=== PATIENT | male | born 1945 | race Hispanic/Latino ===

== ENCOUNTER 2017-10-19 16:02 | Inpatient (IN) | payer MEDICARE, BC ==
[2017-10-19 16:32] VITALS: BMI 22.3
--- NOTE | 2017-10-19 17:11 | RAD ---
HISTORY: pleural effusion on CT COMPARISON: 10/09/2017 CT thorax FINDINGS: LUNGS: Left upper lobe mass/volume loss left upper lobe. Left lower lobe infiltrate. Shift of mediastinal structures to the ipsilateral side. Volume loss primarily in the left upper lobe. Compensatory hyperinflation of the right lung. PLEURA: Small left pleural effusion. CARDIOVASCULAR: No radiographic findings to suggest acute or significant cardiovascular disease. OSSEOUS STRUCTURES: No significant abnormalities. VISUALIZED UPPER ABDOMEN: Normal. OTHER FINDINGS: None. IMPRESSION: Infiltrate/ mass left upper lobe. Volume loss and infiltrate left lower lobe. Small left pleural effusion. These are all new findings compared to the prior chest radiograph. The findings were seen on the recent CT scan of the thorax. .
[2017-10-19 17:23] LABS: ALB/GLOB RATIO 0.9 (1.1-1.8); ALBUMIN 3.6 g/dL (3.0-4.8); ALT/SGPT 19 U/L (7-56); AST/SGOT 34 U/L (17-59); BLOOD UREA NITROGEN 13 mg/dL (7-21); CALCIUM 8.8 mg/dL (8.4-10.5); GFR AFRICAN-AMERICAN > 60; GFR NON-AFRICAN AMERICAN > 60
[2017-10-19 17:34] LABS: BASO # 0.01 K/mm3 (0.0-2.0); BASO % 0.1 % (0.0-3.0); EOS # 0.1 (0.0-0.7); EOS % 0.5 % (1.5-5.0); GRAN # 7.56 (1.4-6.5); GRAN % 82.2 % (50.0-68.0); HEMOGLOBIN 12.2 g/dL (14.0-18.0); LYMPH # 1.1 (1.2-3.4); LYMPH % 11.4 % (22.0-35.0); MEAN CELL VOLUME 90.5 fl (80.0-105.0); MEAN CORPUSCULAR HEMOGLOBIN 28.4 pg (25.0-35.0); MEAN CORPUSCULAR HGB CONC 31.4 g/dl (31.0-37.0); MEAN PLATELET VOLUME 9.9 fl (7.0-11.0); MONO # 0.5 (0.1-0.6); MONO % 5.8 % (1.0-6.0); RBC 4.3 10^6/uL (3.5-6.1); RED CELL DISTRIBUTION WIDTH 14.1 % (11.5-14.5); WHITE BLOOD COUNT 9.2 10^3/ul (4.5-11.0)
[2017-10-19 17:35] LABS: B-TYPE NATRIURETIC PEPTIDE 334 pg/mL (0-450); TROPONIN I < 0.01 ng/mL
[2017-10-19 17:40] LABS: INR 1.28 (0.93-1.08); PARTIAL THROMBOPLASTIN TIME 32.2 Seconds (25.1-36.5); PROTHROMBIN TIME 14.7 SECONDS (9.4-12.5)
[2017-10-19] MEDS ORDERED: Potassium Chloride 20 mEq ER Tab PO STA (17:48)
--- NOTE | 2017-10-19 18:46 | ED PDOC ---
Arrival/HPI - General Chief Complaint: Shortness Of Breath Time Seen by Provider: 10/19/17 16:14 Historian: Patient - History of Present Illness Narrative History of Present Illness (Text): 10/19/17 18:45 A 72 year old male, whose past medical history includes presents to the emergency department for a complaint of shortness of breath. The patient was sent into the emergency department by Dr. Durbin for increasing shortness of breath. As per Dr. Durbin, the patient's repeat CT scan showed a PE. The patient denies fevers, chills, headache, dizziness, chest pain, cough, abdominal pain, nausea, vomiting, diarrhea, back pain, neck pain, urinary/bowel changes, or any other complaint. Time/Duration: Prior to Arrival Symptom Onset: Sudden Symptom Course: Unchanged Activities at Onset: Rest, Light Context: Home Past Medical History - Provider Review Nursing Documentation Reviewed: Yes - Infectious Disease Hx of Infectious Diseases: None - Cardiac Hx Pacemaker: No - Pulmonary Hx Lung Cancer: Yes - Neurological Hx Paralysis: No - Hematological/Oncological Hx Blood Transfusions: No - Musculoskeletal/Rheumatological Hx Musculoskeletal Disorders: No - Genitourinary/Gynecological Hx Prostate Problems: Yes - Psychiatric Hx Emotional Abuse: No Hx Physical Abuse: No Hx Substance Use: No - Anesthesia Hx Anesthesia Reactions: No Hx Malignant Hyperthermia: No - Suicidal Assessment Feels Threatened In Home Enviroment: No Family/Social History - Physician Review Nursing Documentation Reviewed: Yes Family/Social History: No Known Family HX Smoking Status: Never Smoked Hx Alcohol Use: Yes (QUIT 15 MONTHS AGO) Hx Substance Use: No Allergies/Home Meds Allergies/Adverse Reactions: Allergies aspirin Adverse Reaction (Verified 10/19/17 16:31) NAUSEA Home Medications: Home Meds Medication Instructions Recorded Confirmed Lansoprazole [Prevacid] 1 cap PO DAILY 10/19/17 10/19/17 Review of Systems - Physician Review All systems were reviewed & negative as marked: Yes - Review of Systems Constitutional: absent: Fevers, Night Sweats Respiratory: SOB. absent: Cough Cardiovascular: absent: Chest Pain, Syncope Gastrointestinal: absent: Stool Changes, Diarrhea, Nausea, Vomiting Genitourinary Male: absent: Urinary Output Changes Musculoskeletal: absent: Back Pain, Neck Pain Neurological: absent: Headache, Dizziness Physical Exam Vital Signs Reviewed: Yes Vital Signs Temp Pulse Resp BP Pulse Ox 10/19/17 20:02 98.4 F 87 18 141/86 99 10/19/17 16:41 20 10/19/17 16:19 98.6 F 83 17 141/67 95 Temperature: Afebrile Blood Pressure: Normal Pulse: Regular Respiratory Rate: Normal Appearance: Positive for: Well-Appearing, Non-Toxic, Comfortable Pain Distress: None Mental Status: Positive for: Alert and Oriented X 3 - Systems Exam Head: Present: Atraumatic, Normocephalic Pupils: Present: PERRL Extroacular Muscles: Present: EOMI Conjunctiva: Present: Normal Mouth: Present: Moist Mucous Membranes Neck: Present: Normal Range of Motion Respiratory/Chest: Present: Decreased Breath Sounds (Bilaterally) Cardiovascular: Present: Murmurs (Systolic murmur) Abdomen: No: Tenderness, Distention, Peritoneal Signs Back: Present: Normal Inspection Upper Extremity: Present: Normal Inspection. No: Cyanosis, Edema Lower Extremity: Present: Normal Inspection. No: Edema Neurological: Present: GCS=15, CN II-XII Intact, Speech Normal Skin: Present: Warm, Dry, Normal Color. No: Rashes Psychiatric: Present: Alert, Oriented x 3, Normal Insight, Normal Concentration Medical Decision Making ED Course and Treatment: 10/19/17 18:45 Impression: Plan: -- EKG -- Chest X-ray -- Sputum Culture -- Labs -- Heaprin and Protonix -- Reassess and disposition Progress Notes: CHEST X-RAY Dictated By: Jefe Up MD Dictated Date/Time: 10/09/17 17:09 IMPRESSION: Infiltrate/ mass left upper lobe. Volume loss and infiltrate left lower lobe. Small left pleural effusion. These are all new findings compared to the prior chest radiograph. The findings were seen on the recent CT scan of the thorax. 10/19/17 19:23: Case discussed with Dr. Durbin. Will admit patient to general medical floor. PO potassium was given. EKG: Ordered, reviewed, and independently interpreted the EKG. Rate : 78 BPM Rhythm : NSR Interpretation : RBBB - Lab Interpretations Lab Results: 10/19/17 17:06 10/19/17 17:06 Lab Results 10/19/17 17:06: Sodium 138, Potassium 3.1 L, Chloride 92 L, Carbon Dioxide 37 H , Anion Gap 12, BUN 13, Creatinine 0.5 L, Est GFR ( Amer) > 60, Est GFR ( Non-Af Amer) > 60, Random Glucose 99, Calcium 8.8, Magnesium 1.8, Total Bilirubin 0.4, AST 34, ALT 19, Alkaline Phosphatase 92, Lactate Dehydrogenase 872 H, Total Creatine Kinase 35, Troponin I < 0.01, NT-Pro-B Natriuret Pep 334, Total Protein 7.7, Albumin 3.6, Globulin 4.0, Albumin/Globulin Ratio 0.9 L 10/19/17 17:06: PT 14.7 H, INR 1.28 H, APTT 32.2 10/19/17 17:06: WBC 9.2, RBC 4.30, Hgb 12.2 L, Hct 38.9 L, MCV 90.5, MCH 28.4, MCHC 31.4, RDW 14.1, Plt Count 380, MPV 9.9, Gran % 82.2 H, Lymph % (Auto) 11.4 L, Donley % (Auto) 5.8, Eos % (Auto) 0.5 L, Baso % (Auto) 0.1, Gran # 7.56 H, Lymph # (Auto) 1.1 L, Donley # (Auto) 0.5, Eos # (Auto) 0.1, Baso # (Auto) 0.01 I have reviewed the lab results: Yes - RAD Interpretation Radiology Orders: 10/19/17 16:42 CHEST PORTABLE [RAD] Stat - EKG Interpretation Interpreted by ED Physician: Yes Type: 12 lead EKG - Medication Orders Current Medication Orders: Heparin Sodium (Porcine) (Heparin) 5,000 units SC Q12 [facility] PRN Reason: Protocol Potassium Chloride/Dextrose/Sod Cl (Potassium Chl 20 Meq In D5-1/2ns) 1,000 mls @ 50 mls/hr IV .Q20H [facility] Pantoprazole Sodium (Protonix Ec Tab) 20 mg PO 0600,1600 [facility] Discontinued Medications Potassium Chloride (K-Dur 20 Meq Er Tab) 20 meq PO STAT STA Stop: 10/19/17 17:49 Last Admin: 10/19/17 20:53 Dose: 20 meq - Scribe Statement The provider has reviewed the documentation as recorded by the Zenia Nuñez Provider Scribe Attestation: All medical record entries made by the Scribe were at my direction and personally dictated by me. I have reviewed the chart and agree that the record accurately reflects my personal performance of the history, physical exam, medical decision making, and the department course for this patient. I have also personally directed, reviewed, and agree with the discharge instructions and disposition. Disposition/Present on Arrival - Present on Arrival Any Indicators Present on Arrival: No History of DVT/PE: No History of Uncontrolled Diabetes: No Urinary Catheter: No History of Decub. Ulcer: No History Surgical Site Infection Following: None - Disposition Have Diagnosis and Disposition been Completed?: Yes Diagnosis: Pleural effusion Disposition Time: 16:30 Condition: FAIR
--- NOTE | 2017-10-19 20:58 | CP.PCM.HP ---
History of Present Illness - History of Present Illness History of Present Illness: H&P for Dr. Durbin 72 M with a PMHx of prostate ca s/p radiation, new left perihilar mass and tobacco abuse presents to the [facility] [place] ED with complaints of progressively worsening shortness of breath. Repeat CT demonstrated a pleural effusion lung nodules, and possible adrenal lesion. The patient was seen and examined at bedside. Patient has complaints of a productive cough with white phlegm production. Patient otherwise feels fine. He does admit to shortness of breath, especially upon exertion. Patient has no difficulty in oral intake, has been having regular bowel and baldder movements. The patient denies fevers, chills, headache, dizziness, chest pain, cough, abdominal pain, nausea, vomiting, diarrhea, back pain, neck pain, urinary/bowel changes, or any other complaint. PMHx: As above PSHx: Denied Shx: Heavy smoker >30yrs 1ppd, recently quit. Denied Etoh or illicit substance abuse FamHx: Denied Meds; MAR Reviewed Allergies: NKDA Present on Admission - Present on Admission Any Indicators Present on Admission: No Review of Systems - Review of Systems Review of Systems: as per HPI otherwise negative Past Patient History - Infectious Disease Hx of Infectious Diseases: None - Past Social History Smoking Status: Never Smoked - CARDIAC Hx Pacemaker: No - PULMONARY Hx Lung Cancer: Yes - NEUROLOGICAL Hx Paralysis: No - HEMATOLOGICAL/ONCOLOGICAL Hx Blood Transfusions: No - MUSCULOSKELETAL/RHEUMATOLOGICAL Hx Musculoskeletal Disorders: No - GENITOURINARY/GYNECOLOGICAL Hx Prostate Problems: Yes - PSYCHIATRIC Hx Emotional Abuse: No Hx Physical Abuse: No Hx Substance Use: No - SURGICAL HISTORY Hx Surgeries: Yes - ANESTHESIA Hx Anesthesia Reactions: No Hx Malignant Hyperthermia: No Meds Allergies/Adverse Reactions: Allergies Allergy/AdvReac Type Severity Reaction Status Date / Time aspirin AdvReac NAUSEA Verified 10/19/17 16:31 Physical Exam - Constitutional Appears: Chronically Ill - Head Exam Head Exam: ATRAUMATIC, NORMAL INSPECTION, NORMOCEPHALIC - Eye Exam Eye Exam: EOMI, Normal appearance, PERRL Pupil Exam: NORMAL ACCOMODATION, PERRL - ENT Exam ENT Exam: Mucous Membranes Dry - Respiratory Exam Respiratory Exam: Decreased Breath Sounds, NORMAL BREATHING PATTERN - Cardiovascular Exam Cardiovascular Exam: REGULAR RHYTHM, +S1, +S2 - GI/Abdominal Exam GI & Abdominal Exam: Normal Bowel Sounds, Soft. absent: Tenderness - Extremities Exam Extremities exam: Positive for: pedal edema - Neurological Exam Neurological exam: Alert, CN II-XII Intact, Normal Gait, Oriented x3, Reflexes Normal - Psychiatric Exam Psychiatric exam: Normal Affect, Normal Mood - Skin Skin Exam: Dry, Intact, Normal Color, Warm Results - Vital Signs Recent Vital Signs: Last Vital Signs Temp 98.4 F 10/19/17 20:02 Pulse 87 10/19/17 20:02 Resp 18 10/19/17 20:02 BP 141/86 10/19/17 20:02 Pulse Ox 99 10/19/17 20:02 - Labs Result Diagrams: 10/19/17 17:06 10/19/17 17:06 Assessment & Plan - Assessment and Plan (Free Text) Assessment: 72 M with a PMHx of prostate ca s/p radiation, new left perihilar mass and tobacco abuse presents to the [facility] [place] [facility] ED with complaints of progressively worsening shortness of breath. Repeat CT demonstrated a pleural effusion lung nodules, and possible adrenal lesion. Will consult IR Dr Chandler regarding thoracentesis and bx of lung/adrenals. EKG demonstrated strain pattern, will consult Dr. Olivier, Cardiology for further assessment. Patient found to be hypokalemic and will supplement potassium in IVF. 02NC PRN. Will consult Dr. Dent Pulmonology. Pt educated and counselled on tobacco cessation.
--- NOTE | 2017-10-19 22:28 | CARD ---
APPROVED REPORT EKG Measurement Heart [id number] <Conclusion> Normal sinus rhythm Right bundle branch block Abnormal ECG
[2017-10-19] MEDS: Potassium Ch 20mEq in D5-1/2NS 1,000 ML IV SCH (22:29)
[2017-10-20] MEDS: Pantoprazole 20 mg EC Tab PO SCH ×2 (05:38→15:07)
[2017-10-20 06:36] LABS: BASO # 0.01 K/mm3 (0.0-2.0); BASO % 0.1 % (0.0-3.0); EOS % 0.5 % (1.5-5.0); GRAN # 5.89 (1.4-6.5); GRAN % 77.9 % (50.0-68.0); HEMOGLOBIN 11.1 g/dL (14.0-18.0); LYMPH # 1.1 (1.2-3.4); LYMPH % 14.9 % (22.0-35.0); MEAN CELL VOLUME 90.4 fl (80.0-105.0); MEAN CORPUSCULAR HGB CONC 30.9 g/dl (31.0-37.0); MEAN PLATELET VOLUME 9.9 fl (7.0-11.0); MONO # 0.5 (0.1-0.6); MONO % 6.6 % (1.0-6.0); RBC 3.97 10^6/uL (3.5-6.1); RED CELL DISTRIBUTION WIDTH 14.1 % (11.5-14.5); WHITE BLOOD COUNT 7.6 10^3/ul (4.5-11.0)
[2017-10-20] MEDS ORDERED: Barium Sulfate Susp 2.1% w/v, 2.0% w/w 450 mL Bottle PO ONE (07:15)
[2017-10-20 07:18] LABS: INR 1.27 (0.93-1.08); PARTIAL THROMBOPLASTIN TIME 29.4 Seconds (25.1-36.5); PROTHROMBIN TIME 14.7 SECONDS (9.4-12.5)
[2017-10-20 07:34] LABS: ALB/GLOB RATIO 0.8 (1.1-1.8); ALBUMIN 3.1 g/dL (3.0-4.8); ALT/SGPT 21 U/L (7-56); AST/SGOT 30 U/L (17-59); BLOOD UREA NITROGEN 9 mg/dL (7-21); CALCIUM 8.7 mg/dL (8.4-10.5); GFR AFRICAN-AMERICAN > 60; GFR NON-AFRICAN AMERICAN > 60
[2017-10-20] MEDS: Potassium Chloride 20 mEq ER Tab PO SCH ×2 (10:09→17:30)
[2017-10-20] MEDS ORDERED: Iohexol 350 MG/100 ML VIAL ONE (10:20)
--- NOTE | 2017-10-20 11:34 | CT ---
PROCEDURE: CT Chest, Abdomen and Pelvis with intravenous contrast HISTORY: metastatic lung ca suspected COMPARISON: Recent outside CT dated 10/09/2017 TECHNIQUE: IV dose administered: 100 cc of Omni 350 Radiation dose: Total exam DLP = 479 mGy-cm. This CT exam was performed using one or more of the following dose reduction techniques: Automated exposure control, adjustment of the mA and/or kV according to patient size, and/or use of iterative reconstruction technique. FINDINGS: CT CHEST WITH CONTRAST: LUNGS: There is atelectasis of the left lung with mediastinal shift to the left. There is opacification of the left mainstem bronchus which may be due to a mucus plug. In an endobronchial lesion cannot be excluded MEDIASTINUM: Unremarkable. Normal caliber aorta and pulmonary arterial trunk. No aortic dissection. Normal size heart. LYMPH NODES: There is extensive supraclavicular adenopathy. The conglomerate juliana mass measures 5.5 x 8.4 cm. There is also right axillary adenopathy. Enlarged enhancing nodes are also seen in the medial supraclavicular space adjacent to the jugular. PLEURA: Moderate size left pleural effusion. BONES: Unremarkable. OTHER FINDINGS: None. CT ABDOMEN AND PELVIS: LIVER: Unremarkable. No gross lesion or ductal dilatation. GALLBLADDER AND BILE DUCTS: Unremarkable. PANCREAS: Unremarkable. No gross lesion or ductal dilatation. SPLEEN: Unremarkable. ADRENALS: There is a heterogeneous right adrenal mass measuring 2.2 x 3.6 cm consistent with metastatic disease. There is also enlargement of the left adrenal suspicious for metastatic involvement. There is a simple cyst arising from the upper pole of the left kidney KIDNEYS AND URETERS: Unremarkable. No hydronephrosis. No solid mass. VASCULATURE: Unremarkable. No aortic aneurysm. BOWEL: Unremarkable. No obstruction. No gross mural thickening. APPENDIX: Normal appendix. PERITONEUM: Unremarkable. No free fluid. No free air. LYMPH NODES: Unremarkable. No enlarged lymph nodes. BLADDER: Unremarkable. REPRODUCTIVE: Unremarkable. BONES: No acute fracture. OTHER FINDINGS: None. IMPRESSION: Severe atelectasis of the left lung with mediastinal shift to the left and a moderate size left effusion. There is opacification of the left mainstem bronchus which probably represents a mucous plug. An endobronchial lesion cannot be excluded. Extensive right-sided supraclavicular adenopathy. Bilateral adrenal masses right greater than left suspicious for metastatic disease.
--- NOTE | 2017-10-20 13:25 | CARD ---
APPROVED REPORT EXAM: Two-dimensional and M-mode echocardiogram with Doppler and color Doppler. 2D DIMENSIONS Left Atrium (2D)3.7 (1.6-4.0cm)IVSd1.2 (0.7-1.1cm) LVDd4.2 (3.9-5.9cm)PWd1.2 (0.7-1.1cm) LVDs2.9 (2.5-4.0cm)FS (%) 31.1 % LVEF (%)59.2 (>50%) M-Mode DIMENSIONS Aortic Root3.20 (2.2-3.7cm)Aortic Cusp Exc.1.90 (1.5-2.0cm) Aortic Valve AoV Peak Rnqnaxai675.0cm/Mary Jo Peak GR.6mmHg Mitral Valve E/A ratio0.0 TDI E/Lateral E'0.0E/Medial E'0.0 Tricuspid Valve TR Peak [id number] [id number] Peak Gr.23mmHg [id number] LEFT VENTRICLE The left ventricle is normal size. There is mild concentric left ventricular hypertrophy. The left ventricular function is normal. The left ventricular ejection fraction is within the normal range. There is normal LV segmental wall motion. RIGHT VENTRICLE The right ventricle is normal size. The right ventricular systolic function is normal. ATRIA The left atrium size is normal. The right atrium size is normal. The interatrial septum is intact with no evidence for an atrial septal defect. AORTIC VALVE The aortic valve is normal in structure. No aortic regurgitation is present. There is no aortic valvular stenosis. MITRAL VALVE The mitral valve is normal in structure. Mitral regurgitation is trace. TRICUSPID VALVE The tricuspid valve is normal in structure. There is mild tricuspid regurgitation. PULMONIC VALVE The pulmonary valve is normal in structure. GREAT VESSELS The aortic root is normal in size. The IVC is normal in size and collapses >50% with inspiration. PERICARDIAL EFFUSION There is no pleural effusion. There is no pericardial effusion. <Conclusion> Normal chamber size. Mild concentric LVH. Normal LV systolic function. Mild tricuspid regurgitation.
[2017-10-20] MEDS: Potassium Ch 20mEq in D5-1/2NS 1,000 ML IV SCH (15:06)
--- NOTE | 2017-10-20 16:02 | CP.PCM.PN ---
Subjective - Date & Time of Evaluation Date of Evaluation: 10/20/17 Time of Evaluation: 10:25 - Subjective Subjective: Heme Onc Progress Note for Dr. Wolf Patient seen and examined at bedside. No acute complaints at this time. Pt NPO status maintained. Patient for possible thoracentesis today. The patient denies fevers, chills, headache, dizziness, chest pain, cough, abdominal pain, nausea, vomiting, diarrhea, back pain, neck pain, urinary/bowel changes, or any other complaint. Objective - Vital Signs/Intake and Output Vital Signs (last 24 hours): Temp Pulse Resp BP Pulse Ox 98.0 F 78 20 114/53 L 93 L 10/20/17 06:00 10/20/17 06:00 10/20/17 06:00 10/20/17 06:00 10/20/17 06:00 Intake and Output: 10/20/17 10/20/17 06:59 18:59 Intake Total 0 700 Output Total 350 Balance -350 700 - Medications Medications: Current Medications Heparin Sodium (Porcine) (Heparin) 5,000 units SC Q12 [facility] PRN Reason: Protocol Last Admin: 10/20/17 10:08 Dose: 5,000 units Potassium Chloride/Dextrose/Sod Cl (Potassium Chl 20 Meq In D5-1/2ns) 1,000 mls @ 50 mls/hr IV .Q20H [facility] Last Admin: 10/20/17 15:06 Dose: 50 mls/hr Pantoprazole Sodium (Protonix Ec Tab) 20 mg PO 0600,1600 [facility] Last Admin: 10/20/17 15:07 Dose: 20 mg Potassium Chloride (K-Dur 20 Meq Er Tab) 30 meq PO BID [facility] Last Admin: 10/20/17 10:09 Dose: 30 meq - Labs Labs: 10/20/17 05:15 10/20/17 05:15 PT 14.7 SECONDS (9.4-12.5) H 10/20/17 05:15 INR 1.27 (0.93-1.08) H 10/20/17 05:15 APTT 29.4 Seconds (25.1-36.5) 10/20/17 05:15 - Constitutional Appears: No Acute Distress - Head Exam Head Exam: ATRAUMATIC, NORMAL INSPECTION, NORMOCEPHALIC - Eye Exam Eye Exam: EOMI, Normal appearance, PERRL - ENT Exam ENT Exam: Mucous Membranes Moist, Normal Exam - Respiratory Exam Respiratory Exam: Clear to Ausculation Bilateral, NORMAL BREATHING PATTERN - Cardiovascular Exam Cardiovascular Exam: REGULAR RHYTHM, +S1, +S2. absent: Murmur - GI/Abdominal Exam GI & Abdominal Exam: Soft, Normal Bowel Sounds. absent: Tenderness - Extremities Exam Extremities Exam: Pedal Edema - Neurological Exam Neurological Exam: Alert, Awake, CN II-XII Intact, Normal Gait, Oriented x3 - Psychiatric Exam Psychiatric exam: Normal Affect, Normal Mood - Skin Skin Exam: Dry, Intact, Normal Color, Warm Assessment and Plan - Assessment and Plan (Free Text) Assessment: 72 M with a PMHx of prostate ca s/p radiation, new left perihilar mass and tobacco abuse [place] [facility] [place] with complaints of progressively worsening shortness of breath. Repeat CT demonstrated a pleural effusion lung nodules, and possible adrenal lesion. Will consult IR Dr Chandler regarding thoracentesis and bx of lung/adrenals. EKG demonstrated strain pattern, will consult Dr. Olivier, Cardiology for further assessment. Patient found to be hypokalemic and will supplement potassium in IVF. 02NC PRN. Will consult Dr. Dent Pulmonology. Pt educated and counselled on tobacco cessation.
[2017-10-20] MEDS: MethylPREDNISolone 40 mg Vial IVP SCH ×2 (18:02→22:00)
--- NOTE | 2017-10-20 18:25 | CON ---
DATE: 10/20/2017 INDICATIONS: Shortness of breath, pleural effusion, hypokalemia. HISTORY OF PRESENT ILLNESS: This is a 72-year-old man with prostate cancer with radiation therapy who has developed shortness of breath, which has become progressive. Apparently, he has undergone evaluation by Dr. Durbin. A CT scan demonstrated abnormalities including pleural effusion and left hilar mass. He was admitted to telemetry yesterday. Cardiology consultation was requested. There is no chest pain, orthopnea, PND, syncope, presyncope, lightheadedness, dizziness, vertigo, palpitation, edema, claudication, fever, chills, rigors, sweats, hemoptysis, abdominal pain, nausea, vomiting, diarrhea, constipation or melena. PAST MEDICAL HISTORY: Notable for prostate cancer with radiation therapy. Recent CAT scan disclosed abnormalities including left pleural effusion, left perihilar mass, possible adrenal mass, possible pulmonary embolus was mentioned. He is a smoker who just quit. There is no history of rheumatic fever, myocardial infarction, angina, congestive heart failure, arrhythmia, diabetes, stroke, TIA, hyperlipidemia or gout. MEDICATIONS: At the time of admission include Prevacid. ALLERGIES: THERE ARE NO MEDICATION ALLERGIES REPORTED. SOCIAL HISTORY: He is a smoker who has just quit. He does not drink alcohol. He lives at home. He is ambulatory. FAMILY HISTORY: Noncontributory. REVIEW OF SYSTEMS: A 10-point review of systems is otherwise unremarkable except as noted above. PHYSICAL EXAMINATION GENERAL: He is a well-developed male, lying in bed, in no acute distress. VITAL SIGNS: Unremarkable. Pulse is 90, afebrile, blood pressure 119/40, respiratory rate 18-20, O2 sat 95%-99% on nasal cannula. HEENT: Reveals no neck vein distention, thyromegaly, or carotid bruits. Mucous membranes moist. Conjunctivae are pink. NECK: Supple. LUNGS: Lung [place], diminished breath sounds on the left side, scattered rhonchi. HEART: Revealed normal first and second heart sounds. ABDOMEN: Soft, bowel sounds present. No mass, organomegaly, tenderness, rebound, or guarding. No palpable abdominal aortic aneurysm. No CVA tenderness. EXTREMITIES: Revealed no cyanosis or clubbing. There is mild pedal edema. NEUROLOGIC: Awake, alert, and oriented. PSYCHIATRIC: Normal as to mood and affect. SKIN: Warm and dry. No rash or cellulitis. LABORATORY AND IMAGING: EKG demonstrates regular sinus rhythm, right bundle-branch block. Chest x-ray revealed infiltrate/mass left upper lobe, volume loss, infiltrate left lower lobe, small left pleural effusion and these are new findings. White count normal, hemoglobin of 11.1, hematocrit 35.9, platelet count 340,000. PT 14.7, INR 1.27, PTT 29.4. Electrolytes notable for potassium of 3.1, repeat 3.2. BUN and creatinine unremarkable. Magnesium 1.8. LFTs unremarkable. LDH 872. CK 35, troponin less than 0.01. BNP 334. CEA is elevated at 28.8. IMPRESSION: Alton Monson is a 72-year-old man who presented with shortness of breath and abnormal chest findings including pleural effusion, infiltrates and or mass in the left lung, possible metastatic disease, possible adrenal mass, questionable pulmonary embolism on a CAT scan which needs clarification based on notes in the chart. PLAN: He is undergoing Oncology, Pulmonary and Interventional Radiology evaluations. I will order an echocardiogram. Potassium should be replaced. He is being considered for thoracentesis and adrenal biopsy. I will review his old records and the echocardiogram once it has been done. I will follow along with you. I will make additional recommendations based on his clinical course. William Olivier MD PATRICK
[2017-10-20] MEDS ORDERED: Midazolam 2 MG/2 ML VIAL ONE (18:39)
[2017-10-20] MEDS ORDERED: Lidocaine 1% Inj (20ml) ONE (18:39)
[2017-10-20] MEDS ORDERED: Oxycodone/Acetaminophen 5/325 mg Tab PO PRN (18:58)
[2017-10-20] MEDS ORDERED: Sodium Chloride 0.45% 1,000 ML IV SCH (19:00)
--- NOTE | 2017-10-20 20:10 | US ---
PROCEDURE: Ultrasound guided left thoracentesis. CLINICAL HISTORY: Large left hilar mass. Left pleural effusion. Evaluate for malignancy. PHYSICIAN(S): Arthur Chandler MD. TECHNIQUE: The relative risks and indications of the procedure were explained to the patient and his family and consent obtained. The patient was placed in a sitting position on the stretcher and sonography of the right chest performed. This revealed a moderate sized leftpleural effusion. A eft posterolateral intercostal approach was selected and the area prepped and draped usual sterile fashion. 1% Xylocaine was used to anesthetize the skin and soft tissues. A 7 Bulgarian thoracentesis catheter was trocared into the right pleural cavity and 700cc of clear straw-colored fluid aspirated. A cytology specimen was sent. IMPRESSION: 1. Ultrasound guided left thoracentesis. 100 cc of clear, straw-colored fluid were aspirated. A cytology specimen was sent
--- NOTE | 2017-10-20 20:15 | US ---
HISTORY: Leg pain and swelling. Evaluate for DVT PHYSICIAN(S): Arthur Chandler MD. TECHNIQUE: Duplex sonography and color-flow Doppler with graded compression were used to evaluate the deep venous systems of both lower extremities. FINDINGS: The visualized deep venous systems of both lower extremities are sonographically normal and compressible. Normal wave forms and augmentation are seen. There is no sonographic evidence for deep venous thrombosis in the visualized segments of both lower extremities. IMPRESSION: No sonographic evidence for deep venous thrombosis in the visualized segments of both lower extremities.
--- NOTE | 2017-10-20 20:24 | CT ---
PROCEDURE: CT guided left hilar lung biopsy. HISTORY: Large left hilar mass. Smoker. Probable malignancy. PHYSICIAN(S): Arthur Chandler MD. TECHNIQUE: The relative risks and indications of the procedure were explained to the patient and his family and consent obtained. The patient was placed right decubitus position on the CT scanner and preliminary images through the mid lungs obtained. Conscious sedation and monitoring were provided throughout the procedure by a nurse. There is an obstructing central left hilar mass.. A left lateral approach was selected and the area prepped and draped in the usual sterile fashion. 1% Xylocaine was used to anesthetize the skin and soft tissues. A 19 gauge guiding needle was advanced into the 4 cm left hilar mass. Its position was confirmed with CT. Using coaxial technique, multiple core biopsies were obtained. The postprocedure images show no evidence of significant hemorrhage. A small pneumothorax was present. The patient was asymptomatic. His vital signs were stable. A follow-up chest x-ray has been ordered. IMPRESSION: 1. CT-guided left hilar lung biopsy as described above.
[2017-10-20] MEDS: Acetylcysteine 20% Inhal Soln (4ml) INH SCH (20:31)
[2017-10-20] MEDS: Budesonide 0.5 mg/2 ml Inhal Susp UD IH SCH (20:32)
[2017-10-20] MEDS: Arformoterol 15 mcg/2 ml Inh Sol IH SCH (20:32)
[2017-10-21] MEDS: Pantoprazole 20 mg EC Tab PO SCH ×2 (05:37→19:04)
[2017-10-21] MEDS: MethylPREDNISolone 40 mg Vial IVP SCH ×3 (05:38→21:30)
[2017-10-21 06:17] LABS: GRAN # 3.68 (1.4-6.5); GRAN % 77.1 % (50.0-68.0); LYMPH # 0.8 (1.2-3.4); LYMPH % 16.4 % (22.0-35.0); MEAN CELL VOLUME 90.3 fl (80.0-105.0); MEAN CORPUSCULAR HEMOGLOBIN 28.1 pg (25.0-35.0); MEAN CORPUSCULAR HGB CONC 31.2 g/dl (31.0-37.0); MEAN PLATELET VOLUME 9.8 fl (7.0-11.0); MONO # 0.3 (0.1-0.6); MONO % 6.5 % (1.0-6.0); RBC 3.91 10^6/uL (3.5-6.1); RED CELL DISTRIBUTION WIDTH 13.9 % (11.5-14.5); WHITE BLOOD COUNT 4.8 10^3/ul (4.5-11.0)
[2017-10-21 06:50] LABS: ALB/GLOB RATIO 0.9 (1.1-1.8); ALBUMIN 3.2 g/dL (3.0-4.8); ALT/SGPT 18 U/L (7-56); AST/SGOT 31 U/L (17-59); BLOOD UREA NITROGEN 6 mg/dL (7-21); CALCIUM 8.7 mg/dL (8.4-10.5); GFR AFRICAN-AMERICAN > 60; GFR NON-AFRICAN AMERICAN > 60
[2017-10-21] MEDS: Arformoterol 15 mcg/2 ml Inh Sol IH SCH ×3 (07:54→19:11)
[2017-10-21] MEDS: Acetylcysteine 20% Inhal Soln (4ml) INH SCH ×3 (07:55→19:11)
[2017-10-21] MEDS: Budesonide 0.5 mg/2 ml Inhal Susp UD IH SCH ×3 (07:55→19:12)
[2017-10-21 08:15] LABS: INR 1.19 (0.93-1.08); PROTHROMBIN TIME 13.6 SECONDS (9.4-12.5)
[2017-10-21] MEDS: Potassium Chloride 20 mEq ER Tab PO SCH ×2 (09:18→19:04)
--- NOTE | 2017-10-21 10:30 | RAD ---
HISTORY: Left thoracentesis and CT lung bx COMPARISON: Comparison made with prior study 10/19/2017 FINDINGS: LUNGS: There is a moderate size left-sided apical pneumothorax. Coarsened increased interstitial markings throughout the right lung and aerated left lower lobe PLEURA: Questionable small residual effusion CARDIOVASCULAR: Heart appears enlarged OSSEOUS STRUCTURES: No significant abnormalities. VISUALIZED UPPER ABDOMEN: Normal. OTHER FINDINGS: None. IMPRESSION: There is a moderate size left-sided apical pneumothorax. Coarsened increased interstitial markings throughout the right lung and aerated left lower lobe . Questionable small residual left-sided effusion. Note that the 3S Nurse Libby informed of these findings at approximately 10:20 a.m. with written down and read back verification.
--- NOTE | 2017-10-21 15:04 | CP.PCM.CON ---
History of Present Illness - History of Present Illness History of Present Illness: General Surgery Consult Note for Dr. Daniels Reason for Consult: Left sided pneumothorax 72 M with a PMH that includes prostate ca s/p radiation, new left perihilar mass and tobacco abuse presents to [place] [facility] with complaints of progressively worsening shortness of breath. Patient was admitted for large left pleural effusion. CT chest also found lung nodules, and adrenal lesions. General Surgery was consulted for left pneumothorax that was found on CXR taken on 10/20 at 21:00. CXR was not read until 10/21 when General Surgery was consulted. Patient s/p thoracentesis and lung biopsy that was done on 10/20. Patient is currently comfortable on 4LNC with stable vital signs. Admits to fatigue, malaise, and productive cough. Denies fevers/chills, headache, dizziness/ lightheadedness, vertigo, chest pain, abdominal pain, nausea/vomiting, diarrhea , back pain, neck pain, constipation, incontinence, urinary symptoms. PMH: prostate ca s/p radiation, new left perihilar mass, tobacco abuse Meds: Denies Allergies: NKDA PSH: Prostate biopsy, Lung biopsy, thoracentesis FH: Denied Social: Heavy smoker >30yrs 1ppd, recently quit. Denied Etoh or illicit substance abuse Review of Systems - Review of Systems All systems: reviewed and no additional remarkable complaints except (as per HPI ) Past Patient History - Infectious Disease Hx of Infectious Diseases: None - Past Social History Smoking Status: Never Smoked - CARDIAC Hx Pacemaker: No - PULMONARY Hx Lung Cancer: Yes - NEUROLOGICAL Hx Paralysis: No - HEENT Hx HEENT Problems: No - RENAL Hx Chronic Kidney Disease: No - ENDOCRINE/METABOLIC Hx Endocrine Disorders: No - HEMATOLOGICAL/ONCOLOGICAL Hx Blood Transfusions: No - INTEGUMENTARY Hx Dermatological Problems: No - MUSCULOSKELETAL/RHEUMATOLOGICAL Hx Musculoskeletal Disorders: No - GASTROINTESTINAL Hx Gastrointestinal Disorders: No - GENITOURINARY/GYNECOLOGICAL Hx Prostate Problems: Yes - PSYCHIATRIC Hx Emotional Abuse: No Hx Physical Abuse: No Hx Substance Use: No - SURGICAL HISTORY Hx Surgeries: No - ANESTHESIA Hx Anesthesia Reactions: No Hx Malignant Hyperthermia: No Meds Allergies/Adverse Reactions: Allergies Allergy/AdvReac Type Severity Reaction Status Date / Time aspirin AdvReac NAUSEA Verified 10/19/17 16:31 - Medications Medications: Current Medications Acetaminophen (Tylenol 325mg Tab) 650 mg PO Q4 PRN PRN Reason: Pain, Mild (1-3) Acetylcysteine (Acetylcysteine 20%) 3 ml INH BIDRESP [facility] Last Admin: 10/21/17 07:55 Dose: 3 ml Albuterol/Ipratropium (Duoneb 3 Mg/0.5 Mg (3 Ml) Ud) 3 ml IH [id number] PRN PRN Reason: Shortness of Breath Arformoterol Tartrate (Brovana) 15 mcg IH [id number] [facility] Last Admin: 10/21/17 07:54 Dose: 15 mcg Budesonide (Pulmicort Respules) 0.5 mg IH [id number] [facility] Last Admin: 10/21/17 07:55 Dose: 0.5 mg Doxycycline Hyclate (Doryx) 100 mg PO Q12 [facility] PRN Reason: Protocol Last Admin: 10/21/17 09:18 Dose: 100 mg Heparin Sodium (Porcine) (Heparin) 5,000 units SC Q12 [facility] PRN Reason: Protocol Last Admin: 10/21/17 09:19 Dose: 5,000 units Potassium Chloride/Dextrose/Sod Cl (Potassium Chl 20 Meq In D5-1/2ns) 1,000 mls @ 50 mls/hr IV .Q20H [facility] Last Admin: 10/20/17 15:06 Dose: 50 mls/hr Methylprednisolone (Solu-Medrol) 40 mg IVP Q8 [facility] Last Admin: 10/21/17 14:54 Dose: 40 mg Ondansetron HCl (Zofran Inj) 4 mg IVP Q6H PRN PRN Reason: Nausea/Vomiting Oxycodone/Acetaminophen (Percocet 5/325 Mg Tab) 1 tab PO Q4H PRN PRN Reason: Pain, moderate (4-7) Stop: 10/23/17 18:59 Pantoprazole Sodium (Protonix Ec Tab) 20 mg PO 0600,1600 [facility] Last Admin: 10/21/17 05:37 Dose: 20 mg Potassium Chloride (K-Dur 20 Meq Er Tab) 30 meq PO BID [facility] Last Admin: 10/21/17 09:18 Dose: 30 meq Zolpidem Tartrate (Ambien) 5 mg PO HS PRN; Protocol PRN Reason: Insomnia Physical Exam - Additional Findings Additional findings: - Constitutional Appears: Chronically Ill - Head Exam Head Exam: ATRAUMATIC, NORMAL INSPECTION, NORMOCEPHALIC - Eye Exam Eye Exam: EOMI, Normal appearance, PERRL Pupil Exam: NORMAL ACCOMODATION, PERRL - ENT Exam ENT Exam: Mucous Membranes Dry - Respiratory Exam Respiratory Exam: Decreased Breath Sounds, NORMAL BREATHING PATTERN. Absent: Accessory muscle use, Respiratory distress. - Cardiovascular Exam Cardiovascular Exam: REGULAR RHYTHM, +S1, +S2 - GI/Abdominal Exam GI & Abdominal Exam: Normal Bowel Sounds, Soft. absent: Tenderness - Extremities Exam Extremities exam: Positive for: pedal edema - Neurological Exam Neurological exam: Alert, CN II-XII Intact, Normal Gait, Oriented x3, Reflexes Normal - Psychiatric Exam Psychiatric exam: Normal Affect, Normal Mood - Skin Skin Exam: Dry, Intact, Normal Color, Warm Results - Vital Signs Recent Vital Signs: Last Vital Signs Temp 97.3 F L 10/21/17 09:22 Pulse 77 10/21/17 09:22 Resp 20 10/21/17 09:22 BP 125/65 10/21/17 09:22 Pulse Ox 96 10/21/17 09:22 - Labs Result Diagrams: 10/21/17 05:30 10/21/17 05:30 Labs: Laboratory Results - last 24 hr 10/21/17 10/21/17 10/21/17 05:30 05:30 05:30 WBC 4.8 D RBC 3.91 Hgb 11.0 L Hct 35.3 L MCV 90.3 MCH 28.1 MCHC 31.2 RDW 13.9 Plt Count 328 MPV 9.8 Gran % 77.1 H Lymph % (Auto) 16.4 L [place] % (Auto) 6.5 H Eos % (Auto) 0.0 L Baso % (Auto) 0.0 Gran # 3.68 Lymph # (Auto) 0.8 L [place] # (Auto) 0.3 Eos # (Auto) 0.0 Baso # (Auto) 0.00 PT 13.6 H INR 1.19 H APTT 30.0 Sodium 140 Potassium 4.2 Chloride 95 L Carbon Dioxide 38 H Anion Gap 12 BUN 6 L Creatinine 0.5 L Est GFR ( Amer) > 60 Est GFR (Non-Af Amer) > 60 Random Glucose 155 H Calcium 8.7 Total Bilirubin 0.2 AST 31 ALT 18 Alkaline Phosphatase 74 Total Protein 6.8 Albumin 3.2 Globulin 3.6 Albumin/Globulin Ratio 0.9 L - Imaging and Cardiology Chest x-ray Status: Image reviewed by me, Report reviewed by me Additional comment: Impression: Left sided pneumothorax, left hilar mass CT scan - chest Status: Image reviewed by me, Report reviewed by me Additional comment: Impression: Left hilar mass, Left sided pleural effusion, possible Right sided pancoast tumor Assessment & Plan - Assessment and Plan (Free Text) Assessment: 72 M with a PMH that includes prostate ca s/p radiation, new left perihilar mass and tobacco abuse with Left sided pneumothorax and left hilar mass Plan: -Recommend Chest tube but Pulmonology and Primary do not want a chest tube at this time -Repeat CXR then Daily CXR -If symptoms worsen then Chest tube will be needed -Further recommendations as per Dr. Marina Longo PGY1 - Date & Time Date: 10/21/17 Time: 15:00
[2017-10-21] MEDS: Potassium Ch 20mEq in D5-1/2NS 1,000 ML IV SCH (15:05)
--- NOTE | 2017-10-21 16:38 | RAD ---
HISTORY: pneumothorax COMPARISON: No prior. FINDINGS: LUNGS: Re- demonstrated is a moderate-sized left apical pneumothorax. PLEURA: No significant pleural effusion identified, no pneumothorax apparent. CARDIOVASCULAR: Normal. OSSEOUS STRUCTURES: No significant abnormalities. VISUALIZED UPPER ABDOMEN: Normal. OTHER FINDINGS: None. IMPRESSION: Re- demonstrated is a moderate size left apical pneumothorax
--- NOTE | 2017-10-21 20:06 | PN ---
DATE: 10/21/2017 PULMONARY PROGRESS NOTE REFERRING PHYSICIAN: Adolfo Durbin MD SUBJECTIVE: He is lying in the bed, head at 45 degrees, feels better, still has some cough and shortness of breath, improved since yesterday. No nausea. No vomiting. No diarrhea. No leg pain or leg swelling. OBJECTIVE: GENERAL: In no acute distress. VITAL SIGNS: Temperature is 98, heart rate 79, respiratory rate is 18, blood pressure 136/58, pulse ox of 98% on 4 liters nasal cannula. HEENT: Moist mucous membranes. No ulcer or thrush. NECK: Supple. LUNGS: Had decreased breath sounds on the left lung. HEART: S1 and S2. ABDOMEN: Soft, nontender. No organomegaly. EXTREMITIES: There is no edema. NEUROLOGIC: Awake and alert. Follow simple commands. MEDICATIONS: He is on Mucomyst 20% inhaled twice a day, Ambien 5 mg at bedtime p.r.n., Brovana inhaled twice a day, doxycycline 100 mg twice a day, DuoNeb every 6 hours p.r.n., heparin 5000 units subcutaneous every 12 hours, potassium 30 mEq p.o. twice a day, Percocet 5/325 one tablet every 4 hours p.r.n., IV fluid with potassium 50 mL per hour, Protonix 20 mg twice a day, Pulmicort inhaled twice a day, Solu-Medrol 40 mg every 8 hours, Tylenol p.r.n., Zofran p.r.n. LABORATORY DATA: Shows hemoglobin 11.0, hematocrit 35.3, WBC 4.8, platelet count is 328. INR 1.19. PTT is 30. Sodium 140, potassium 4.2, chloride 95, bicarbonate 38, BUN 6, creatinine 0.5, glucose 155, calcium 8.7, AST 31, ALT 18, alk phos is 74, albumin is 3.2. Carcinoembryonic antigen is 29. Gram stain of the sputum has few Gram-negative bacilli. Has a CT-guided lung biopsy done. Chest x-ray done this morning shows moderate size left apical pneumothorax. IMPRESSION AND PLAN: Chronic obstructive lung disease, has a left hilar mass with atelectasis, supraclavicular lymph node, also has an adrenal mass. The patient was started on IV and inhaled bronchodilator with also antibiotics, status post biopsy with pneumothorax, it is a moderate-sized pneumothorax at the left apical area. The patient's symptom is better since yesterday. We will not place chest tube for now. We will follow up series of x-rays to assure the stability of pneumothorax, may continue supplemental oxygen IV and inhaled bronchodilator. The patient is placed on remote tele. Spoke to nursing staff, also spoke to Dr. Wolf. We will do a stat chest x-ray if there is any increased shortness of breath. Thank you and we will follow with you. Judit Dent MD
--- NOTE | 2017-10-22 01:30 | PN ---
DATE: 10/21/2017 LOCATION: Patient is in room 375, bed 2. PROBLEMS: This is a 72-year-old white male with past medical history of prostate carcinoma, status post radiation, was seen in the office and advised admission upon being seen with chief complaint of progressive weight loss, failure to thrive at home, productive cough with white phlegm production, malaise, no appetite, very significant difficulty in swallowing food because of lack of appetite with new onset of swelling of the legs, and spending most of the time in bed with this cough. Patient denies any history of fevers, history of chills, headache, double vision, nausea or vomiting, diarrhea or back pain. Patient has had progressive weight loss over the last 4 to 6 months. PAST MEDICAL HISTORY: Significant for the fact that he has history of carcinoma of the prostate, status post primary radiation. SOCIAL HISTORY: Patient is a heavy smoker, has more than [id number] history with one pack a day which he recently quit when he started having progressive coughing. Patient had x-ray done at the outpatient facility of [facility] [place]. CAT scan was reviewed, which shows significant disease in the left upper lobe of the lung, with shift of the left mediastinum towards the left secondary to collapse of the left upper lobe. Along with this, there is also significant left pleural effusion as well, in addition to significant mass in the main bronchus. Patient, in addition to this, also has evidence of juliana disease in both the axilla and the supraclavicular area, consistent with metastatic disease. In addition to this, the scan clearly shows evidence of bilateral adrenal metastasis as well. MEDICATIONS: Patient's medications were reviewed on the JUL. ALLERGIES: PATIENT HAS NO KNOWN ALLERGIES. Patient was examined in bed. Patient is on nasal oxygen. Yesterday, the chest x-ray, post biopsy of the lung, yesterday shows a significant pneumothorax. Patient is clinically stable, has been seen by educational fundraising director, Dr. Dent, as well. Patient has been shifted over to remote telemetry, was being monitored on nasal oxygen with plan for repeat chest x-ray later on this afternoon. PHYSICAL EXAMINATION: VITAL SIGNS: Stable at the time of exam. T-max is 97.4, pulse is 79, blood pressure is 136/58, respirations 19, O2 saturation is 98% on room air. HEENT: Head is normocephalic, atraumatic. NECK: Bilateral supraclavicular nodes are palpable, the right is greater than the left. LUNGS: Revealed decreased breath sounds on the left side posteriorly, especially in the upper lobe with decreased breath sounds in the left lower lobe as well. CARDIOVASCULAR SYSTEM: Reveals PMI to be in the fifth intercostal space inside the midclavicular line. S1 and S2 are normal. No gallop or murmur is heard. ABDOMEN: Soft, nontender. Bowel sounds are present. There is no rebound, rigidity, or guarding noted. EXTREMITIES: Patient has chronic edema of both lower extremities, going above the shins. GENITOURINARY AND RECTAL: Deferred. NEUROLOGIC: Reveals higher functions to be normal. No focal deficits are noted. SKIN: Skin turgor is normal. No skin lesions are seen. DIAGNOSTIC STUDIES AND LABORATORY DATA: Patient is status post lung biopsy and pleural fluid tapping, both of which have been sent for analysis, pending results. I also reviewed the CAT scan dated 10/20/2017 at our hospital, which confirmed the same that was seen in the prior testing done as an outpatient, may be 2 weeks ago. There is atelectasis of lung with mediastinal shift to the left and opacification of the left mainstem bronchus either from tumor or mucous plugging secondary to tumor itself causing the plugging. Echocardiogram that was done on admission shows no significant pericardial effusion. Left ventricular ejection fraction is 59%. Venous Doppler of the lower extremities did not reveal any blood clot. Lab data from today were reviewed. White count is 4.8, hemoglobin 11, hematocrit 35, platelet count of 328,000. Chemistry revealed electrolytes to be normal. BUN is 6, creatinine 0.5. AST and ALT are within normal limits with normal alkaline phosphatase. LDH is elevated at 872. MEDICATIONS: Patient's medications were reviewed as below. He is on acetylcysteine 3 mL inhaled b.i.d. He is on Ambien 5 mg at bedtime. He is on Brovana 15 mcg inhaled every 12 hours. He is on albuterol and ipratropium bromide, DuoNeb inhalation every 6 hours. He is on heparin subcu 5000 units every 12 hours, potassium supplement p.o. He is on Percocet 5 as needed for pain. He is on doxycycline 100 mg every 12 hours. 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 Pathology is still pending. Patient has new evidence of pneumothorax, post biopsy involving the left lung. As long as the patient is not getting compromised, we will wait and see, as I am not sure whether the lung will collapse as the patient has collapse of the left upper lobe of the lung secondary to the main tumor in the left mainstem bronchus as well. I discussed the findings with Dr. Dent, who recommended waiting on putting a chest tube at this point in time, till we do followup x-ray to make sure that there is any further progression. Pending biopsy, we might decide whether the patient may be a candidate for localized RT (radiation therapy) to the left mainstem area to alleviate the obstruction to the left main stem bronchus while we are waiting for additional data including patient transportation driver mutation as far as the lung cancer is concerned. I am going to check with Dr. Dent whether the patient may be a candidate for bronchoscopy and endobronchial stenting if necessary. I have discussed my findings in detail with the patient's family who are there with him today. I said to them that we have to wait till the biopsy is obtained. Results are available towards probably by Monday. In the meantime, we will get consultation with radiation oncologist to see the patient pertaining to the left mainstem occlusion. We will try to follow up on the pneumothorax to see which direction it goes as far as position of chest tube is concerned. Surgery has also been consulted and they are on standby. More than 80 minutes were spent in evaluating and treating this patient. Out of which, more than 50% of the time was involved in face to face encounter, discussing with the family, talking to the various doctors, and evolving a treatment plan. Please make a note that this is a medically complicated and complex patient with multiple comorbid medical issues. Artem Wolf MD
[2017-10-22] MEDS: MethylPREDNISolone 40 mg Vial IVP SCH ×3 (05:34→21:45)
[2017-10-22] MEDS: Pantoprazole 20 mg EC Tab PO SCH ×2 (05:34→17:48)
[2017-10-22 06:48] LABS: GRAN # 9.26 (1.4-6.5); GRAN % 90.1 % (50.0-68.0); HEMOGLOBIN 10.9 g/dL (14.0-18.0); LYMPH # 0.7 (1.2-3.4); LYMPH % 6.7 % (22.0-35.0); MEAN CELL VOLUME 91.2 fl (80.0-105.0); MEAN CORPUSCULAR HEMOGLOBIN 28.2 pg (25.0-35.0); MEAN CORPUSCULAR HGB CONC 30.9 g/dl (31.0-37.0); MONO # 0.3 (0.1-0.6); MONO % 3.2 % (1.0-6.0); PLATELET COUNT 340 10^3/uL (120.0-450.0); RBC 3.87 10^6/uL (3.5-6.1); RED CELL DISTRIBUTION WIDTH 13.8 % (11.5-14.5); WHITE BLOOD COUNT 10.3 10^3/ul (4.5-11.0)
[2017-10-22 06:56] LABS: INR 1.1 (0.93-1.08); PARTIAL THROMBOPLASTIN TIME 28.7 Seconds (25.1-36.5); PROTHROMBIN TIME 12.7 SECONDS (9.4-12.5)
[2017-10-22 07:32] LABS: ALB/GLOB RATIO 0.9 (1.1-1.8); ALBUMIN 3.4 g/dL (3.0-4.8); ALT/SGPT 26 U/L (7-56); AST/SGOT 43 U/L (17-59); BLOOD UREA NITROGEN 9 mg/dL (7-21); CALCIUM 9.1 mg/dL (8.4-10.5); GFR AFRICAN-AMERICAN > 60; GFR NON-AFRICAN AMERICAN > 60
[2017-10-22] MEDS: Acetylcysteine 20% Inhal Soln (4ml) INH SCH ×2 (07:39→19:19)
[2017-10-22] MEDS: Arformoterol 15 mcg/2 ml Inh Sol IH SCH ×2 (07:39→19:19)
[2017-10-22] MEDS: Budesonide 0.5 mg/2 ml Inhal Susp UD IH SCH ×2 (07:40→19:19)
[2017-10-22 08:56] LABS: BAND 3 % (0-2); LYMPHOCYTE 6 % (22.0-35.0); MONOCYTE 1 % (1.0-6.0); NEUTROPHIL 90 % (50.0-70.0); PLATELET ESTIMATE NORMAL (NORMAL)
[2017-10-22] MEDS: Potassium Chloride 20 mEq ER Tab PO SCH ×3 (09:41→17:18)
[2017-10-22] MEDS: Potassium Ch 20mEq in D5-1/2NS 1,000 ML IV SCH (09:42)
--- NOTE | 2017-10-22 09:54 | RAD ---
HISTORY: Pneumothorax COMPARISON: No prior. FINDINGS: LUNGS: Patchy bibasilar atelectasis. PLEURA: Current study re- demonstrates a moderate-sized shift of the mediastinum left apical pneumothorax essentially unchanged in appearance. Very slight shift mediastinum from right to left CARDIOVASCULAR: Heart size stable however there is very slight OSSEOUS STRUCTURES: No significant abnormalities. VISUALIZED UPPER ABDOMEN: Normal. OTHER FINDINGS: None. IMPRESSION: No change left apical pneumothorax. . Slight shift of the mediastinum from right to left comparison Bibasilar atelectasis.
--- NOTE | 2017-10-22 22:01 | PN ---
DATE: 10/22/2017 PULMONARY PROGRESS NOTE REFERRING PHYSICIAN: Adolfo Durbin MD SUBJECTIVE: He is lying in the bed, head at 45 degrees. Feels okay. Still has some cough and sputum production. No hemoptysis. No hematemesis. No hematuria. No diarrhea. No leg pain or leg swelling reported. OBJECTIVE: GENERAL: In no acute distress. VITAL SIGNS: Temperature is 98, heart rate is 92, respiratory is 20, blood pressure 138/67, pulse ox 94% on nasal cannula. HEENT: Moist mucous membranes. Crowded airway. NECK: Supple. No JVD. LUNGS: Has decreased breath sounds on the left lung. Scattered rhonchi and a few wheezing. HEART: S1 and S2. ABDOMEN: Soft, nontender. No organomegaly. EXTREMITIES: No edema. NEUROLOGIC: Awake and alert. Follow simple commands. MEDICATIONS: He is on Mucomyst 20% inhaled twice a day, Ambien 5 mg at bedtime p.r.n., Brovana inhaled twice a day, doxycycline 100 mg twice a day, DuoNeb every 6 hours p.r.n., heparin 5000 units subcu every 12 hours, potassium 20 mEq daily, Percocet 5/325 one tablet every 4 hours p.r.n., IV fluid normal saline, potassium 50 mL per hour, Protonix 20 mg twice a day, Pulmicort inhaled twice a day, Solu-Medrol 40 mg every 8 hours, Tylenol p.r.n., Zofran p.r.n. basis. LABORATORY DATA: Shows hemoglobin 10.9, hematocrit , WBC 10.3, platelet count is 340. INR 1.10. PTT 29. Sodium 140, potassium 4.4, chloride 95, bicarbonate 38, BUN 9, creatinine 0.8. Glucose 134, calcium is 9.1, AST of 43, ALT 26, alk phos is 80. Albumin is 3.4. Carcinoembryonic antigen is 29. Microbiology, sputum culture is a normal chrissy. Chest x-ray done this morning shows left upper lobe area moderate size of pneumothorax. No change since yesterday. IMPRESSION AND PLAN: Lung tumor, supraclavicular lymph node, adrenal mass, pleural effusion, atelectasis, status post lung biopsy, has a pneumothorax. Pneumothorax has been stable since yesterday. No change in respiratory status. Continue IV and inhaled bronchodilator. Gastric prophylaxis, deep vein thrombosis prophylaxis. Follow up x-ray in the morning. Continue supplemental oxygen. Awaiting for biopsy report. If it is a proven cancer, which seems like will be, I will suggest start left hilar radiation therapy to see if we can help open up that bronchus and same time if possible, start chemotherapy or wait for a few days of response of radiation therapy. We will discuss with Dr. Wolf. Thank you and we will follow with you. Judit Dent MD
[2017-10-23] MEDS: Potassium Ch 20mEq in D5-1/2NS 1,000 ML IV SCH ×2 (02:50→23:34)
--- NOTE | 2017-10-23 04:13 | PN ---
DATE: 10/22/2017 ONCOLOGY PROGRESS NOTE LOCATION: Patient is in room 375, bed 2. SUBJECTIVE: Patient is lying in bed, head at 45 degrees. Feels okay. Still has some cough and sputum production. No hemoptysis. No hematemesis. No hematuria. No diarrhea. No leg pain or leg swelling. Patient had not significantly got short of breath since the biopsy and since the documentation of the pneumothorax on the chest x-ray. OBJECTIVE: GENERAL: The patient is in no acute distress. VITAL SIGNS: T-max is 98.4, heart rate is 92, respirations 20, blood pressure 138/67, pulse ox is 94% on nasal cannula. HEENT: Head is normocephalic and atraumatic. Conjunctivae pale. Examination of the oropharynx reveals no oropharyngeal lesions. Tongue is moist. No ulcerations are noted. NECK: Supple. There is no adenopathy. LUNGS: Reveals decreased breath sounds on the left lung. Scattered wheezes and a few rhonchi. HEART: Reveals PMI to be in the fifth intercostal space, inside the midclavicular line. S1 and S2 are normal. No gallop or murmur is heard. ABDOMEN: Soft, nontender. No organomegaly is noted. EXTREMITIES: Reveal no cyanosis, clubbing, or edema. NEUROLOGIC: Reveals higher functions to be normal. No focal deficits are noted. MEDICATIONS: Are reviewed. He is on Mucomyst 20% inhaled twice a day, Ambien 5 mg at bedtime, Brovana inhaled twice a day, doxycycline 100 mg twice a day, DuoNeb every 6 hours, heparin 5000 units subcu every 12 hours, potassium chloride 20 mEq daily, Percocet one tablet every 4 hours p.r.n., IV fluid at 50 mL an hour, Protonix 20 mg twice a day, Pulmicort inhaled twice a day, Solu-Medrol 40 mg every 8 hours, Tylenol p.r.n., Zofran p.r.n. LABORATORY DATA: Hemoglobin and hematocrit from the lab data reveals a hemoglobin of 10.9, hematocrit 33, white count is 10.3, platelet count of 340,000. Electrolytes reveals a sodium of 140, K is 4.4, chloride is 95, bicarbonate is 38, BUN is 19 with a creatinine 0.8. Electrolytes, otherwise, are unremarkable. Glucose is 134, calcium is 9.1. AST is 43, ALT is 26, alk phos is 80. Albumin is 3.4. CEA is 29. Sputum culture is normal. Chest x-ray shows left upper lobe area of moderate sizes pneumothorax without any changes. ASSESSMENT, NOTES AND PLAN: Patient has a metastatic carcinoma of the lung, had involvement of the supraclavicular nodes, bilateral adrenal metastases, pleural effusion, atelectasis of the left upper lobe status post biopsy with persistent pneumothorax that is stable. Patient has no change in the respiratory status at this time. Continue IV antibiotics and inhaled bronchodilators. Gastric prophylaxis has been ordered. Deep vein thrombosis is also ordered. Followup chest x-ray has been requested for a.m. Biopsy reports are pending. We will get Radiation Oncology also to see us if there is any value for left hilar radiation. Routine post-exam instructions have been given to the patient. I have discussed in detail with the patient's family as well. Time spent with the patient, more than 45 minutes. I spoke to Dr. Dent in great length as well. Artem Wolf MD
[2017-10-23] MEDS: MethylPREDNISolone 40 mg Vial IVP SCH ×3 (05:41→21:23)
[2017-10-23] MEDS: Pantoprazole 20 mg EC Tab PO SCH ×2 (05:41→17:45)
[2017-10-23 06:35] LABS: GRAN # 7.96 (1.4-6.5); GRAN % 90.2 % (50.0-68.0); HEMOGLOBIN 11.4 g/dL (14.0-18.0); LYMPH # 0.6 (1.2-3.4); LYMPH % 6.5 % (22.0-35.0); MEAN CELL VOLUME 91.6 fl (80.0-105.0); MEAN CORPUSCULAR HGB CONC 30.6 g/dl (31.0-37.0); MEAN PLATELET VOLUME 9.9 fl (7.0-11.0); MONO # 0.3 (0.1-0.6); MONO % 3.3 % (1.0-6.0); RBC 4.07 10^6/uL (3.5-6.1); RED CELL DISTRIBUTION WIDTH 13.8 % (11.5-14.5); WHITE BLOOD COUNT 8.8 10^3/ul (4.5-11.0)
[2017-10-23 07:04] LABS: INR 1.2 (0.93-1.08); PROTHROMBIN TIME 13.8 SECONDS (9.4-12.5)
[2017-10-23 07:05] LABS: PARTIAL THROMBOPLASTIN TIME 28.2 Seconds (25.1-36.5)
[2017-10-23 07:37] LABS: ALB/GLOB RATIO 0.9 (1.1-1.8); ALBUMIN 3.4 g/dL (3.0-4.8); ALT/SGPT 42 U/L (7-56); AST/SGOT 59 U/L (17-59); BLOOD UREA NITROGEN 11 mg/dL (7-21); CALCIUM 8.8 mg/dL (8.4-10.5); GFR AFRICAN-AMERICAN > 60; GFR NON-AFRICAN AMERICAN > 60
[2017-10-23] MEDS: Budesonide 0.5 mg/2 ml Inhal Susp UD IH SCH ×2 (07:47→20:29)
[2017-10-23] MEDS: Arformoterol 15 mcg/2 ml Inh Sol IH SCH ×2 (07:47→20:29)
[2017-10-23] MEDS: Albuterol-Ipratrop 3 mg / 0.5 (3 ml) UD IH PRN (07:47)
[2017-10-23] MEDS: Acetylcysteine 20% Inhal Soln (4ml) INH SCH ×2 (07:47→20:29)
--- NOTE | 2017-10-23 08:39 | CON ---
DATE: 10/20/2017 PULMONARY CONSULT REFERRING PHYSICIAN: Adolfo Durbin MD. REASON FOR CONSULT: Cough, shortness of breath, atelectasis, rule out lung tumor. HISTORY OF PRESENT ILLNESS: This is a 72-year-old gentleman with past medical history significant for prostate cancer, had been on radiation therapy; history of smoking. Comes into ER with shortness of breath, cough, sputum production. Apparently had some x-rays done as an outpatient, which shows pleural effusion, lung nodule and adrenal lesion. Spoke to Dr. Wolf overnight. History and diagnostic and therapeutic maneuver were discussed. Spoke to family at bedside. All the questions answered. The patient does have a cough, sputum production. No nausea, no vomiting, no diarrhea reported. PAST MEDICAL HISTORY: Prostate cancer, had radiation therapies. Denying any cardiopulmonary disease. SOCIAL HISTORY: Heavy smoker. Denied any alcohol use. ALLERGIES: NONE KNOWN. FAMILY HISTORY: No significant cardiopulmonary disease reported. MEDICATIONS: On heparin 5000 units subcu every 12 hours, potassium 30 mEq twice a day, IV fluid 50 mL per hour, Protonix 20 mg twice a day. REVIEW OF SYSTEMS: Has been losing weight, short of breath with minimal exertion. Has a cough. No hemoptysis. No nausea, no vomiting. No diarrhea, dysuria, leg pain or leg swelling. PHYSICAL EXAMINATION: GENERAL: Axon-rs-sjnhhidl distress secondary to cough and shortness of breath. VITAL SIGNS: Temperature is 98, heart rate is 78, respiratory rate is 20, blood pressure 114/53, pulse ox 93% on 2 L nasal cannula. HEENT: Moist mucous membrane. Crowded airway. NECK: Supple. No JVD. LUNGS: Have no breaths on the left lung. Scattered rhonchi and wheezing. HEART: S1 and S2. ABDOMEN: Soft, nontender. No organomegaly. EXTREMITIES: There is no edema. NEUROLOGICAL: Awake and alert, follows simple command. LABORATORY DATA: Shows hemoglobin 11.1, hematocrit 35.9, WBC 7.6, platelet count is 340. INR 1.27, PTT is 29. Sodium 138, potassium 2.2, chloride 92, bicarbonate 39, BUN 9, creatinine 0.5, glucose 113, calcium 8.7, AST 30, ALT 21, alk phos is 76. Albumin is 3.1. Carcinoembryonic antigen is 28. Has a CAT scan of the chest, abdomen and pelvis done, which shows severe atelectasis of the left lung with mediastinal shift to the left, moderate size of left effusion. There is opacity in the left mainstem bronchus, could be mucus plugging or tumor. There is also right-sided supraclavicular adenopathy. Bilateral adrenal masses are noted, right greater than the left suspicious for metastatic disease. IMPRESSION AND PLAN: Chronic obstructive lung disease, pleural effusion, history of prostate cancer requiring radiation therapy, presentation highly suspicious for metastatic disease. I had long discussion with Dr. Wolf overnight, also spoke to the patient's and rest of the family. All their questions answered. Will have a thoracentesis today, which is the least invasive procedure. If unable to make diagnosis, may need either bronchoscopy or supraclavicular lymph node biopsy. We will add inhaled bronchodilator, Solu-Medrol, antibiotics. Continue gastric prophylaxis, deep venous thrombosis prophylaxis. Thank you and we will follow with you. Judit Dent MD
[2017-10-23] MEDS: Potassium Chloride 20 mEq ER Tab PO SCH ×2 (09:46→17:44)
--- NOTE | 2017-10-23 10:31 | RAD ---
HISTORY: pneumo COMPARISON: 10/22/2017 FINDINGS: LUNGS: There is no change in the left apical pneumothorax and left upper lobe lung mass PLEURA: No significant pleural effusion identified, no pneumothorax apparent. CARDIOVASCULAR: Normal. OSSEOUS STRUCTURES: No significant abnormalities. VISUALIZED UPPER ABDOMEN: Normal. OTHER FINDINGS: None. IMPRESSION: No change in left apical pneumothorax
[2017-10-23] MEDS ORDERED: Lidocaine 1% Inj (20ml) ONE (12:24)
[2017-10-23] MEDS ORDERED: Midazolam 2 MG/2 ML VIAL ONE (12:24)
--- NOTE | 2017-10-23 12:54 | CP.PCM.CON ---
History of Present Illness - History of Present Illness History of Present Illness: Mr Monson is a 72 year old male with a presumed stage IV lung cancer. He was admitted to [facility] with progressive shortness of breath. He recently had gone to the urgent care center in [place] for similarsymptoms. He had imaging studies there, and was recommended to go to the hospital in [place] for admission. He refused. Ultimately because of his pulmonary symptoms, he came to [facility]. On October 20, 2017, he had a CT of the chest, abdomen and pelvis which revealed atelectasis of the left lung with mediastinal shift to the left. There was opacification of the left mainstem bronchus. There was extensive supraclavicular adenopathy measuring 8.4 x 5.5cm. There was axillary adenopathy as well. There was right adrenal mass. There was also enlargement of the left adrenal gland as well. A thoracentesis on October 20, 2017 revealed straw colored fluid. He also had a CT guided lung biopsy. The pathology is still pending. He is currently getting a chest tube placed with Dr Chandler. We were asked to see him about possible palliative radiation to the mainstem bronchus. Review of Systems - Respiratory Respiratory: Cough, Dyspnea, Dyspnea on Exertion - Gastrointestinal Gastrointestinal: Constipation Past Patient History - Infectious Disease Hx of Infectious Diseases: None - Past Social History Smoking Status: Former Smoker Alcohol: None Home Situation {Lives}: With Family - CARDIAC Hx Pacemaker: No - NEUROLOGICAL Hx Paralysis: No - HEENT Hx HEENT Problems: No - RENAL Hx Chronic Kidney Disease: No - ENDOCRINE/METABOLIC Hx Endocrine Disorders: No - HEMATOLOGICAL/ONCOLOGICAL Hx Blood Transfusions: No - INTEGUMENTARY Hx Dermatological Problems: No - MUSCULOSKELETAL/RHEUMATOLOGICAL Hx Musculoskeletal Disorders: No - GASTROINTESTINAL Hx Gastrointestinal Disorders: No - GENITOURINARY/GYNECOLOGICAL Hx Prostate Cancer: Yes (h/o high risk prostate cancer status post ADT and radiation in 2014) - PSYCHIATRIC Hx Emotional Abuse: No Hx Physical Abuse: No Hx Substance Use: No - SURGICAL HISTORY Hx Surgeries: No - ANESTHESIA Hx Anesthesia Reactions: No Hx Malignant Hyperthermia: No Meds Allergies/Adverse Reactions: Allergies Allergy/AdvReac Type Severity Reaction Status Date / Time aspirin AdvReac NAUSEA Verified 10/19/17 16:31 - Medications Medications: Current Medications Acetaminophen (Tylenol 325mg Tab) 650 mg PO Q4 PRN PRN Reason: Pain, Mild (1-3) Acetylcysteine (Acetylcysteine 20%) 3 ml INH BIDRESP [facility] Last Admin: 10/23/17 07:47 Dose: Not Given Albuterol/Ipratropium (Duoneb 3 Mg/0.5 Mg (3 Ml) Ud) 3 ml IH [id number] PRN PRN Reason: Shortness of Breath Last Admin: 10/23/17 07:47 Dose: 3 ml Arformoterol Tartrate (Brovana) 15 mcg IH [id number] [facility] Last Admin: 10/23/17 07:47 Dose: 15 mcg Budesonide (Pulmicort Respules) 0.5 mg IH [id number] [facility] Last Admin: 10/23/17 07:47 Dose: 0.5 mg Doxycycline Hyclate (Doryx) 100 mg PO Q12 [facility] PRN Reason: Protocol Last Admin: 10/23/17 09:47 Dose: 100 mg Heparin Sodium (Porcine) (Heparin) 5,000 units SC Q12 [facility] PRN Reason: Protocol Last Admin: 10/23/17 09:46 Dose: 5,000 units Potassium Chloride/Dextrose/Sod Cl (Potassium Chl 20 Meq In D5-1/2ns) 1,000 mls @ 50 mls/hr IV .Q20H [facility] Last Admin: 10/23/17 02:50 Dose: 50 mls/hr Methylprednisolone (Solu-Medrol) 40 mg IVP Q8 [facility] Last Admin: 10/23/17 05:41 Dose: 40 mg Ondansetron HCl (Zofran Inj) 4 mg IVP Q6H PRN PRN Reason: Nausea/Vomiting Oxycodone/Acetaminophen (Percocet 5/325 Mg Tab) 1 tab PO Q4H PRN PRN Reason: Pain, moderate (4-7) Stop: 10/23/17 18:59 Pantoprazole Sodium (Protonix Ec Tab) 20 mg PO 0600,1600 [facility] Last Admin: 10/23/17 05:41 Dose: 20 mg Potassium Chloride (K-Dur 20 Meq Er Tab) 30 meq PO BID [facility] Last Admin: 10/23/17 09:46 Dose: 30 meq Zolpidem Tartrate (Ambien) 5 mg PO HS PRN; Protocol PRN Reason: Insomnia Physical Exam - Eye Exam Eye Exam: EOMI - ENT Exam ENT Exam: Mucous Membranes Moist - Neck Exam Neck exam: Positive for: Lymphadenopathy Additional comments: right SCV adenopathy - Respiratory Exam Respiratory Exam: Decreased Breath Sounds - Cardiovascular Exam Cardiovascular Exam: REGULAR RHYTHM - GI/Abdominal Exam GI & Abdominal Exam: Normal Bowel Sounds - Neurological Exam Neurological exam: CN II-XII Intact, Oriented x3 Results - Vital Signs Recent Vital Signs: Last Vital Signs Temp 97 F L 10/23/17 08:31 Pulse 64 10/23/17 08:31 Resp 20 10/23/17 08:31 BP 135/77 10/23/17 08:31 Pulse Ox 97 10/23/17 08:31 - Labs Result Diagrams: 10/23/17 05:30 10/23/17 05:30 Labs: Laboratory Results - last 24 hr 10/23/17 10/23/17 10/23/17 05:30 05:30 05:30 WBC 8.8 RBC 4.07 Hgb 11.4 L Hct 37.3 L MCV 91.6 MCH 28.0 MCHC 30.6 L RDW 13.8 Plt Count 371 MPV 9.9 Gran % 90.2 H Lymph % (Auto) 6.5 L [place] % (Auto) 3.3 Eos % (Auto) 0.0 L Baso % (Auto) 0.0 Gran # 7.96 H Lymph # (Auto) 0.6 L [place] # (Auto) 0.3 Eos # (Auto) 0.0 Baso # (Auto) 0.00 PT 13.8 H INR 1.20 H APTT 28.2 Sodium 138 Potassium 4.1 Chloride 94 L Carbon Dioxide 38 H Anion Gap 9 L BUN 11 Creatinine 0.5 L Est GFR ( Amer) > 60 Est GFR (Non-Af Amer) > 60 Random Glucose 141 H Calcium 8.8 Total Bilirubin 0.2 AST 59 D ALT 42 Alkaline Phosphatase 86 Total Protein 7.1 Albumin 3.4 Globulin 3.7 Albumin/Globulin Ratio 0.9 L Assessment & Plan - Assessment and Plan (Free Text) Assessment: Mr Monson is a 72 year old male with a presumed stage IV lung cancer with compression of the left mainstem bronchus. He had a biopsy on Monday. The pathology is currently pending. He was seen by pulmonary who also recommended palliative local radiation. Based on his imaging study and symptoms, we would concur that he would benefit from radiation therapy to the mainstem bronchus. We spoke to him about the risks and benefits of radiation therapy. Informed consent was obtained. He is going for a chest tube today so we will follow up with him after the procedure to see how he is doing so that we can arrange for a planning session. If he did not have imaging studies of his brain, it would be prudent to do a CT of the head with contrast or MRI of the brain to rule out metastases. He did not a number studies at the outpatient facility on [facility]. We are in the process of trying to get copies of these tests.
--- NOTE | 2017-10-23 18:08 | CT ---
PROCEDURE: CT-guided left chest tube placement HISTORY: Recent left lung biopsy. Moderate size pneumothorax with shortness of breath. Needs chest tube. PHYSICIAN(S): Arthur Chandler MD. TECHNIQUE: The relative risks and indications for the procedure were explained to the patient and informed consent obtained. The patient was placed in a supine position on the CT scanner and preliminary images through the upper lungs performed. This revealed a moderate sized left pneumothorax. A left anterior approach was selected the area prepped and draped usual sterile fashion. Conscious sedation monitoring were provided throughout the procedure by a nurse. The skin and soft tissues were anesthetized 1 percent xylocaine. A 19 gauge needle was advanced into the left pleural space position confirmed with aspiration of air. 0.035 guidewire was coiled in the left pleural space. Sequential dilatation was performed with placement of a 12 [place] pigtail left chest tube. The chest tube was retracted and see anterior chest wall. The tube was placed to 30 cm H2O low continuous suction. The pneumothorax was resolved on the postplacement images. IMPRESSION: 1. CT-guided left anterior chest tube placement as described above
[2017-10-23] MEDS: Benzocaine/Menthol (Cepacol) Lozenge MT PRN (21:22)
--- NOTE | 2017-10-23 21:40 | PN ---
DATE: 10/23/2017 PULMONARY PROGRESS NOTE REFERRING PHYSICIAN: Adolfo Durbin MD SUBJECTIVE: The patient is lying in the bed, head at 45 degrees. Feels better. End up getting left upper lobe area chest tube with draining some bloody secretion. No more air leak. Cough is better. No nausea. No vomiting. No diarrhea, leg pain or leg swelling. Seen by Radiation Oncology. OBJECTIVE: GENERAL: In no acute distress. VITAL SIGNS: Temperature is 98, heart rate is 69, respiratory rate is 18, blood pressure 132/59, pulse ox 98% on 3 liter nasal cannula. HEENT: Moist mucous membranes. No ulcer or thrush. NECK: Supple. No JVD. LUNGS: Has decreased breath sounds on the left lung. HEART: S1 and S2. ABDOMEN: Soft, nontender. No organomegaly. EXTREMITIES: No edema. NEUROLOGIC: Awake and alert. Follow simple commands. MEDICATIONS: He is on Mucomyst inhaled twice a day, also Ambien 5 mg at bedtime p.r.n., Brovana inhaled twice a day, doxycycline 100 mg twice a day, DuoNeb every 6 hours p.r.n., heparin 5000 units subcu every 12 hours, potassium supplement twice a day, also on IV fluid 50 mL per hour, Protonix 20 mg twice a day, Pulmicort inhaled twice a day, Solu-Medrol 40 mg every 8 hours, Tylenol p.r.n., Zofran 4 mg every 6 hours p.r.n. LABORATORY DATA: Shows hemoglobin 11.4, hematocrit 37.3, WBC 8.8, platelet count is 371. INR 1.2, PTT is 28. Sodium 138, potassium 4.1, chloride 94, bicarbonate 38, BUN 11, creatinine 0.5. Glucose 141, calcium 8.8, AST of 59, ALT is 42, alk phos is 86. Albumin is 3.4. CT guided chest tube was placed in the left upper lobe by Dr. Arthur Chandler. IMPRESSION AND PLAN: Lung tumor with supraclavicular lymph node, adrenal mass, pleural effusion, atelectasis, status post lung biopsy with pneumothorax. Had chest tube placed today. Clinically feels better. I spoke to the patient's daughter on the telephone. All the questions answered. We will continue IV and inhaled bronchodilator. Also reviewed Oncology Radiation note, agree. The patient will benefit hopefully from radiation therapy, will need a chemotherapy, still waiting for biopsy report though. Gastric and deep vein thrombosis prophylaxis. Follow up labs in the morning. Thank you and we will follow with you. Judit Dent MD
--- NOTE | 2017-10-23 23:40 | CP.PCM.PN ---
Subjective - Date & Time of Evaluation Date of Evaluation: 10/23/17 Time of Evaluation: 23:37 - Subjective Subjective: S: Complained of congestion in throat. Cepacol was ordered. States that he can not get his cough out. Has no other complaints. States that he feels better after receiving cepacol. O: Last Vital Signs 3 Temp 97.5 F L 10/23/17 17:36 Pulse 69 10/23/17 17:36 Resp 18 10/23/17 17:36 BP 132/59 L 10/23/17 17:36 Pulse Ox 92 L 10/23/17 17:36 Awake, alert, not in distress. LUNGS: Normal breathing pattern. HEENT:Neg. A:Throat congestion. P:Cepacol as orderd. Objective - Vital Signs/Intake and Output Vital Signs (last 24 hours): Temp Pulse Resp BP Pulse Ox 97.5 F L 69 18 132/59 L 92 L 10/23/17 17:36 10/23/17 17:36 10/23/17 17:36 10/23/17 17:36 10/23/17 17:36 Intake and Output: 10/23/17 10/24/17 18:59 06:59 Intake Total 40 480 Output Total 750 Balance 40 -270 - Medications Medications: Current Medications Acetaminophen (Tylenol 325mg Tab) 650 mg PO Q4 PRN PRN Reason: Pain, Mild (1-3) Last Admin: 10/23/17 21:52 Dose: 650 mg Acetylcysteine (Acetylcysteine 20%) 3 ml INH BIDRESP [facility] Last Admin: 10/23/17 20:29 Dose: Not Given Albuterol/Ipratropium (Duoneb 3 Mg/0.5 Mg (3 Ml) Ud) 3 ml IH [id number] PRN PRN Reason: Shortness of Breath Last Admin: 10/23/17 07:47 Dose: 3 ml Arformoterol Tartrate (Brovana) 15 mcg IH [id number] [facility] Last Admin: 10/23/17 20:29 Dose: 15 mcg Benzocaine/Menthol (Cepacol Sore Throat) 1 jackeline MT Q2H PRN PRN Reason: Sore Throat Last Admin: 10/23/17 21:22 Dose: 1 jackeline Budesonide (Pulmicort Respules) 0.5 mg IH [id number] [facility] Last Admin: 10/23/17 20:29 Dose: 0.5 mg Doxycycline Hyclate (Doryx) 100 mg PO Q12 [facility] PRN Reason: Protocol Last Admin: 10/23/17 21:22 Dose: 100 mg Heparin Sodium (Porcine) (Heparin) 5,000 units SC Q12 [facility] PRN Reason: Protocol Last Admin: 10/23/17 21:26 Dose: 5,000 units Potassium Chloride/Dextrose/Sod Cl (Potassium Chl 20 Meq In D5-1/2ns) 1,000 mls @ 50 mls/hr IV .Q20H [facility] Last Admin: 10/23/17 23:34 Dose: 50 mls/hr Methylprednisolone (Solu-Medrol) 40 mg IVP Q8 [facility] Last Admin: 10/23/17 21:23 Dose: 40 mg Ondansetron HCl (Zofran Inj) 4 mg IVP Q6H PRN PRN Reason: Nausea/Vomiting Pantoprazole Sodium (Protonix Ec Tab) 20 mg PO 0600,1600 [facility] Last Admin: 10/23/17 17:45 Dose: 20 mg Potassium Chloride (K-Dur 20 Meq Er Tab) 30 meq PO BID [facility] Last Admin: 10/23/17 17:44 Dose: 30 meq Zolpidem Tartrate (Ambien) 5 mg PO HS PRN; Protocol PRN Reason: Insomnia - Labs Labs: 10/23/17 05:30 10/23/17 05:30 PT 13.8 SECONDS (9.4-12.5) H 10/23/17 05:30 INR 1.20 (0.93-1.08) H 10/23/17 05:30 APTT 28.2 Seconds (25.1-36.5) 10/23/17 05:30
[2017-10-24] MEDS: Pantoprazole 20 mg EC Tab PO SCH ×2 (05:38→17:39)
[2017-10-24] MEDS: MethylPREDNISolone 40 mg Vial IVP SCH ×3 (05:38→21:21)
[2017-10-24] MEDS: Benzocaine/Menthol (Cepacol) Lozenge MT PRN ×2 (05:38→21:57)
[2017-10-24 06:32] LABS: GRAN # 6.27 (1.4-6.5); GRAN % 88.9 % (50.0-68.0); HEMOGLOBIN 11.8 g/dL (14.0-18.0); LYMPH # 0.5 (1.2-3.4); MEAN CELL VOLUME 92.3 fl (80.0-105.0); MEAN CORPUSCULAR HEMOGLOBIN 28.5 pg (25.0-35.0); MEAN CORPUSCULAR HGB CONC 30.9 g/dl (31.0-37.0); MONO # 0.3 (0.1-0.6); MONO % 4.1 % (1.0-6.0); RBC 4.14 10^6/uL (3.5-6.1); RED CELL DISTRIBUTION WIDTH 14.1 % (11.5-14.5); WHITE BLOOD COUNT 7.1 10^3/ul (4.5-11.0)
[2017-10-24 06:44] LABS: INR 1.11 (0.93-1.08); PARTIAL THROMBOPLASTIN TIME 28.5 Seconds (25.1-36.5); PROTHROMBIN TIME 12.8 SECONDS (9.4-12.5)
[2017-10-24 07:54] LABS: ALB/GLOB RATIO 0.9 (1.1-1.8); ALBUMIN 3.4 g/dL (3.0-4.8); ALT/SGPT 61 U/L (7-56); AST/SGOT 66 U/L (17-59); BLOOD UREA NITROGEN 12 mg/dL (7-21); CALCIUM 8.8 mg/dL (8.4-10.5); GFR AFRICAN-AMERICAN > 60; GFR NON-AFRICAN AMERICAN > 60
[2017-10-24] MEDS: Arformoterol 15 mcg/2 ml Inh Sol IH SCH ×2 (08:02→20:02)
[2017-10-24] MEDS: Budesonide 0.5 mg/2 ml Inhal Susp UD IH SCH ×2 (08:02→20:02)
[2017-10-24] MEDS: Acetylcysteine 20% Inhal Soln (4ml) INH SCH ×2 (08:02→20:02)
[2017-10-24] MEDS: Albuterol-Ipratrop 3 mg / 0.5 (3 ml) UD IH PRN (08:02)
--- NOTE | 2017-10-24 08:05 | CP.PCM.PN ---
Subjective - Date & Time of Evaluation Date of Evaluation: 10/24/17 Time of Evaluation: 15:14 - Subjective Subjective: Heme-Onc Progress note for Dr. Wolf Patient seen and examined at bedside. POD#1 CT guided L chest tube placement.Drained 180cc serosanguinous fluid overnight. Overnight events noted- patient had 10 beat run of Vta- cardiology on board and aware. Patient did not complain of any chest pain overnight. This AM he complained of some pain at the site of his chest tube and chills however he reported feeling better and that his appetite had improved. He denied acute complaints of fever, headache, dizziness, palpitations, SOB, cough, abd pain, nausea, vomiting, bowel/bladder complaints, pain/swelling in his legs bilaterally. Objective - Vital Signs/Intake and Output Vital Signs (last 24 hours): Temp Pulse Resp BP Pulse Ox 97.5 F L 87 18 132/59 L 92 L 10/23/17 17:36 10/24/17 06:00 10/23/17 17:36 10/23/17 17:36 10/23/17 17:36 Intake and Output: 10/24/17 10/24/17 06:59 18:59 Intake Total 1080 120 Output Total 930 1200 Balance 150 -1080 - Medications Medications: Current Medications Acetaminophen (Tylenol 325mg Tab) 650 mg PO Q4 PRN PRN Reason: Pain, Mild (1-3) Last Admin: 10/23/17 21:52 Dose: 650 mg Acetylcysteine (Acetylcysteine 20%) 3 ml INH BIDRESP FRANKY Last Admin: 10/23/17 20:29 Dose: Not Given Albuterol/Ipratropium (Duoneb 3 Mg/0.5 Mg (3 Ml) Ud) 3 ml IH [id number] PRN PRN Reason: Shortness of Breath Last Admin: 10/23/17 07:47 Dose: 3 ml Arformoterol Tartrate (Brovana) 15 mcg IH [id number] [facility] Last Admin: 10/23/17 20:29 Dose: 15 mcg Benzocaine/Menthol (Cepacol Sore Throat) 1 jackeline MT Q2H PRN PRN Reason: Sore Throat Last Admin: 10/24/17 05:38 Dose: 1 jackeline Budesonide (Pulmicort Respules) 0.5 mg IH [id number] [facility] Last Admin: 10/23/17 20:29 Dose: 0.5 mg Doxycycline Hyclate (Doryx) 100 mg PO Q12 FRANKY PRN Reason: Protocol Last Admin: 10/23/17 21:22 Dose: 100 mg Heparin Sodium (Porcine) (Heparin) 5,000 units SC Q12 FRANKY PRN Reason: Protocol Last Admin: 10/23/17 21:26 Dose: 5,000 units Potassium Chloride/Dextrose/Sod Cl (Potassium Chl 20 Meq In D5-1/2ns) 1,000 mls @ 50 mls/hr IV .Q20H [facility] Last Admin: 10/23/17 23:34 Dose: 50 mls/hr Methylprednisolone (Solu-Medrol) 40 mg IVP Q8 [facility] Last Admin: 10/24/17 05:38 Dose: 40 mg Ondansetron HCl (Zofran Inj) 4 mg IVP Q6H PRN PRN Reason: Nausea/Vomiting Pantoprazole Sodium (Protonix Ec Tab) 20 mg PO 0600,1600 [facility] Last Admin: 10/24/17 05:38 Dose: 20 mg Potassium Chloride (K-Dur 20 Meq Er Tab) 30 meq PO BID [facility] Last Admin: 10/23/17 17:44 Dose: 30 meq Zolpidem Tartrate (Ambien) 5 mg PO HS PRN; Protocol PRN Reason: Insomnia - Labs Labs: 10/24/17 05:30 10/24/17 05:30 PT 12.8 SECONDS (9.4-12.5) H 10/24/17 05:30 INR 1.11 (0.93-1.08) H 10/24/17 05:30 APTT 28.5 Seconds (25.1-36.5) 10/24/17 05:30 - Constitutional Appears: No Acute Distress - Head Exam Head Exam: ATRAUMATIC, NORMAL INSPECTION, NORMOCEPHALIC - Eye Exam Eye Exam: EOMI, Normal appearance, PERRL. absent: Conjunctival injection, Scleral icterus Pupil Exam: NORMAL ACCOMODATION - ENT Exam ENT Exam: Mucous Membranes Moist - Respiratory Exam Respiratory Exam: Clear to Ausculation Bilateral, NORMAL BREATHING PATTERN. absent: Accessory Muscle Use, Rales, Rhonchi, Wheezes - Cardiovascular Exam Cardiovascular Exam: +S1, +S2 Additional comments: dressings c/d/i - GI/Abdominal Exam GI & Abdominal Exam: Soft. absent: Tenderness - Extremities Exam Extremities Exam: Pedal Edema - Neurological Exam Neurological Exam: Alert, Awake, CN II-XII Intact, Oriented x3 - Psychiatric Exam Psychiatric exam: Normal Affect, Normal Mood - Skin Skin Exam: Dry, Intact, Normal Color, Warm Assessment and Plan - Assessment and Plan (Free Text) Assessment: 72yo male PMHx prostate ca s/p radiation, new left perihilar mass and tobacco abuse presented to the [facility] ED with complaints of progressively worsening shortness of breath. Patient was admitted for large left pleural effusion. CT chest also found lung nodules, and adrenal lesions. Patient s/p thoracentesis and lung biopsy. Hospital course complicated by left pneumothorax. Patient is s/ p chest tube placement by IR. POD#1 CT guided chest tube placement. 180cc serosanguinous drainage from chest tube overnight. Biopsy results pending. Pulmonary recommending palliative local radiation. Dr. Vega on board- reccs appreciated. Dr. Olivier on board- reccs apprecaited. Surgery and IR on board- reccs appreciated. Patient educated and counselled on tobacco cessation. Pain controlled. Labs and VS reviewed. Discussed with Dr. Maryann Baltazar PGY2
--- NOTE | 2017-10-24 09:07 | RAD ---
HISTORY: lt chest tube COMPARISON: 10/23/2017 FINDINGS: LUNGS: There is re-expansion of the left lung after chest tube placement. No visible pneumothorax. Consolidation in the left upper lobe medially PLEURA: No significant pleural effusion identified, no pneumothorax apparent. CARDIOVASCULAR: Normal. OSSEOUS STRUCTURES: No significant abnormalities. VISUALIZED UPPER ABDOMEN: Normal. OTHER FINDINGS: None. IMPRESSION: There is re-expansion of the left lung after chest tube placement. No visible pneumothorax. Consolidation in the left upper lobe medially
[2017-10-24] MEDS: Potassium Chloride 20 mEq ER Tab PO SCH ×2 (10:16→17:39)
[2017-10-24] MEDS: Potassium Ch 20mEq in D5-1/2NS 1,000 ML IV SCH (23:28)
--- NOTE | 2017-10-25 02:12 | PN ---
DATE: 10/24/2017 PULMONARY PROGRESS NOTE REFERRING PHYSICIAN: Adolfo Durbin MD SUBJECTIVE: Patient is in bed, head at 45 degrees. Feels better. Still has a left-sided chest tube. No more air leak. Still having mild cough, some white blood-tinged sputum production. No nausea, vomiting, diarrhea. No leg pain or leg swelling. OBJECTIVE: GENERAL: In no acute distress. VITAL SIGNS: Temperature is 98, heart rate is 64, respiratory rate is 20, blood pressure 134/65, pulse ox 98% on 2 liters nasal cannula. HEENT: Moist mucous membrane. No ulcer or thrush. NECK: Supple. No JVD. LUNGS: Have a fair airflow with scattered rhonchi. HEART: S1 and S2. ABDOMEN: Soft, nontender, no organomegaly. EXTREMITIES: There is no edema. NEUROLOGIC: Awake, alert, follows simple command. MEDICATIONS: He is on Mucomyst 20% inhaled twice a day, Ambien 5 mg at bedtime p.r.n., Brovana inhaled twice a day, Cepacol lozenges every 2 hour p.r.n., doxycycline 100 mg twice a day, DuoNeb every 6 hour p.r.n., heparin 5000 units every 12 hour, potassium 30 mEq twice a day, IV fluid 50 mL per hour, Protonix 40 mg daily, Pulmicort inhaled twice a day, Solu-Medrol 40 mg every 12 hour, Tylenol p.r.n., Zofran p.r.n. basis. LABORATORY DATA: Shows hemoglobin 11.8, hematocrit 38.2, WBC 7.1, platelet count is 357. INR 1.1, PTT 29. Sodium 137, potassium 4.2, chloride 93, bicarbonate 39, BUN 12, creatinine 0.5, glucose 150, calcium is 8.8. AST 66, ALT 61, alk phos is 94. Albumin is 3.4. Microbiology: Sputum culture, so far there is normal chrissy. Chest x-ray done today shows inflated left upper lobe, has a pigtail catheter. IMPRESSION AND PLAN: Lung tumor with supraclavicular lymph node, adrenal mass, pleural effusion, atelectasis status post lung biopsy and a pneumothorax requiring chest tube. Pulmonary point of view, doing well. Spoke to the patient's daughter at bedside. All the questions answered. Decrease Solu-Medrol to 40 twice a day. Continue antibiotics, inhaled bronchodilator. Gastric prophylaxis, deep venous thrombosis prophylaxis. Radiation Oncology followup. Consider discontinuing chest tube catheter tomorrow. Thank you and we will follow with you. Judit Dent MD
[2017-10-25] MEDS: Pantoprazole 20 mg EC Tab PO SCH ×2 (05:37→17:19)
[2017-10-25] MEDS: Budesonide 0.5 mg/2 ml Inhal Susp UD IH SCH ×2 (07:33→19:59)
[2017-10-25] MEDS: Arformoterol 15 mcg/2 ml Inh Sol IH SCH ×2 (07:33→19:59)
[2017-10-25] MEDS: Acetylcysteine 20% Inhal Soln (4ml) INH SCH ×2 (07:33→19:59)
--- NOTE | 2017-10-25 08:10 | CP.PCM.PN ---
Subjective - Date & Time of Evaluation Date of Evaluation: 10/25/17 Time of Evaluation: 08:00 - Subjective Subjective: Mr Monson is status post chest tube. He currently still has the chest-tube. Today he states that he is doing well. He is lying comfortably in bed. We will schedule him for a simulation for radiation once his tube is removed. Objective - Vital Signs/Intake and Output Vital Signs (last 24 hours): Temp Pulse Resp BP Pulse Ox 97.4 F L 80 20 125/63 96 10/25/17 00:00 10/25/17 05:56 10/25/17 00:00 10/25/17 00:00 10/25/17 00:00 Intake and Output: 10/25/17 10/25/17 06:59 18:59 Intake Total 1260 240 Output Total 920 950 Balance 340 -710 - Medications Medications: Current Medications Acetaminophen (Tylenol 325mg Tab) 650 mg PO Q4 PRN PRN Reason: Pain, Mild (1-3) Last Admin: 10/23/17 21:52 Dose: 650 mg Acetylcysteine (Acetylcysteine 20%) 3 ml INH BIDRESP FRANKY Last Admin: 10/25/17 07:33 Dose: Not Given Albuterol/Ipratropium (Duoneb 3 Mg/0.5 Mg (3 Ml) Ud) 3 ml IH [id number] PRN PRN Reason: Shortness of Breath Last Admin: 10/24/17 08:02 Dose: 3 ml Arformoterol Tartrate (Brovana) 15 mcg IH [id number] FRANKY Last Admin: 10/25/17 07:33 Dose: 15 mcg Benzocaine/Menthol (Cepacol Sore Throat) 1 jackeline MT Q2H PRN PRN Reason: Sore Throat Last Admin: 10/24/17 21:57 Dose: 1 jackeline Budesonide (Pulmicort Respules) 0.5 mg IH [id number] FRANKY Last Admin: 10/25/17 07:33 Dose: 0.5 mg Doxycycline Hyclate (Doryx) 100 mg PO Q12 FRANKY PRN Reason: Protocol Last Admin: 10/24/17 21:20 Dose: 100 mg Heparin Sodium (Porcine) (Heparin) 5,000 units SC Q12 FRANKY PRN Reason: Protocol Last Admin: 10/24/17 21:20 Dose: 5,000 units Potassium Chloride/Dextrose/Sod Cl (Potassium Chl 20 Meq In D5-1/2ns) 1,000 mls @ 50 mls/hr IV .Q20H [facility] Last Admin: 10/24/17 23:28 Dose: 50 mls/hr Methylprednisolone (Solu-Medrol) 40 mg IVP Q12 [facility] Ondansetron HCl (Zofran Inj) 4 mg IVP Q6H PRN PRN Reason: Nausea/Vomiting Pantoprazole Sodium (Protonix Ec Tab) 20 mg PO 0600,1600 [facility] Last Admin: 10/25/17 05:37 Dose: 20 mg Potassium Chloride (K-Dur 20 Meq Er Tab) 30 meq PO BID [facility] Last Admin: 10/24/17 17:39 Dose: 30 meq Zolpidem Tartrate (Ambien) 5 mg PO HS PRN; Protocol PRN Reason: Insomnia - Labs Labs: 10/24/17 05:30 10/24/17 05:30 PT 12.8 SECONDS (9.4-12.5) H 10/24/17 05:30 INR 1.11 (0.93-1.08) H 10/24/17 05:30 APTT 28.5 Seconds (25.1-36.5) 10/24/17 05:30
--- NOTE | 2017-10-25 09:43 | RAD ---
HISTORY: left chest tube COMPARISON: Portable chest 06/26/2017. FINDINGS: LUNGS: No right-sided infiltrate. Family [employer] Counsel[employer] airspace disease is seen related to mass left upper lobe. Mild left pulmonary volume loss reiterated. PLEURA: Left-sided pleural drainage catheter unchanged in position. No pneumothorax bilaterally. Trace pleural effusion blunts the left costophrenic sulcus with none appreciated at the right. CARDIOVASCULAR: Normal. OSSEOUS STRUCTURES: No significant abnormalities. VISUALIZED UPPER ABDOMEN: Normal. OTHER FINDINGS: Trace left chest wall soft tissue emphysema. IMPRESSION: Left pleural drainage catheter unchanged in position with trace of pleural effusion noted at the left base. No pneumothorax bilaterally. Left apical atelectasis and underlying lesion again evident.
[2017-10-25] MEDS ORDERED: MethylPREDNISolone 40 mg Vial IVP SCH (10:00)
[2017-10-25] MEDS: Potassium Chloride 20 mEq ER Tab PO SCH ×2 (10:19→17:18)
--- NOTE | 2017-10-25 13:27 | PN ---
DATE: 10/25/2017 PULMONARY PROGRESS NOTE SUBJECTIVE: He is sitting in the side of the bed, having lunch. Daughter is at bedside. Night was unremarkable. Still has a left-sided chest tube, not much draining, no more air leak. Cough is better. No nausea, vomiting, diarrhea, leg pain, leg swelling. OBJECTIVE: GENERAL: In no acute distress. VITAL SIGNS: Temperature is 98, heart rate 60, respiratory rate is 20, blood pressure 130/62, pulse of 96% on nasal cannula. HEENT: Moist mucous membrane. Crowded airway. NECK: Supple. No JVD. LUNGS: Have a fair airflow with scattered rhonchi and a few wheezing, left side has a chest tube. HEART: S1, S2 heard. ABDOMEN: Soft, nontender, no organomegaly. EXTREMITIES: No edema. NEUROLOGIC: Awake, alert and follows simple command. MEDICATIONS: He is on Mucomyst inhaled twice a day, Ambien 5 mg at bedtime p.r.n., Brovana inhaled twice a day, Cepacol lozenges every 2 hours p.r.n., doxycycline 100 mg twice a day, DuoNeb every 6 hours p.r.n., heparin 5000 units subcutaneous every 12 hours, potassium 20 mEq twice a day, potassium with IV fluid 50 mL/hour, Protonix 20 mg twice a day, Pulmicort inhaled twice a day, Solu-Medrol 40 mg every 12 hours, Tylenol p.r.n., Zofran p.r.n. DATA: Laboratory data shows hemoglobin 11.8, hematocrit 38.2, WBC 7.1, platelet count is 357. Sodium yesterday was 137. Sputum culture has a normal chrissy. Lung biopsy report is still pending. Chest x-ray shows left upper chest, chest tube, no pneumothorax, expanded lung, left upper lobe lung mass. IMPRESSION AND PLAN: Probably has a metastatic disease, primarily seems like a , official report is still pending and with pneumothorax requiring chest tube; chronic obstructive lung disease; has a supraclavicular lymph node, adrenal mass. Spoke to the patient's daughter at bedside. All the questions answered. We will decrease Solu-Medrol to 20 every 12 hours. Continue inhaled bronchodilator, antibiotics. Case discussed with the nursing staff, also on requested Dr. Arthur Chandler to remove the chest tube today. Hopefully, by tomorrow, we can start working with the radiation therapy. We will follow with you. Judit Dent MD
[2017-10-25] MEDS: MethylPREDNISolone 40 mg Vial IVP SCH (21:22)
[2017-10-25] MEDS: Potassium Ch 20mEq in D5-1/2NS 1,000 ML IV SCH (21:27)
[2017-10-26] MEDS: Benzocaine/Menthol (Cepacol) Lozenge MT PRN (00:43)
[2017-10-26] MEDS: Pantoprazole 20 mg EC Tab PO SCH ×2 (05:41→17:11)
[2017-10-26 07:07] LABS: GRAN # 7.65 (1.4-6.5); GRAN % 85.4 % (50.0-68.0); HEMOGLOBIN 11.6 g/dL (14.0-18.0); LYMPH # 0.9 (1.2-3.4); LYMPH % 10.1 % (22.0-35.0); MEAN CELL VOLUME 91.3 fl (80.0-105.0); MEAN CORPUSCULAR HEMOGLOBIN 28.2 pg (25.0-35.0); MEAN CORPUSCULAR HGB CONC 30.9 g/dl (31.0-37.0); MONO # 0.4 (0.1-0.6); MONO % 4.5 % (1.0-6.0); RBC 4.12 10^6/uL (3.5-6.1); RED CELL DISTRIBUTION WIDTH 14.2 % (11.5-14.5)
[2017-10-26 07:17] LABS: ALB/GLOB RATIO 0.9 (1.1-1.8); ALBUMIN 3.1 g/dL (3.0-4.8); ALT/SGPT 40 U/L (7-56); AST/SGOT 30 U/L (17-59); BLOOD UREA NITROGEN 11 mg/dL (7-21); CALCIUM 8.5 mg/dL (8.4-10.5); GFR AFRICAN-AMERICAN > 60; GFR NON-AFRICAN AMERICAN > 60
--- NOTE | 2017-10-26 08:03 | CP.PCM.PN ---
Objective - Vital Signs/Intake and Output Vital Signs (last 24 hours): Temp Pulse Resp BP Pulse Ox 98.0 F 92 H 20 128/78 98 10/26/17 07:43 10/26/17 07:43 10/26/17 07:43 10/26/17 07:43 10/26/17 07:43 Intake and Output: 10/26/17 10/26/17 06:59 18:59 Intake Total 780 Output Total 1200 Balance -420 - Medications Medications: Current Medications Acetaminophen (Tylenol 325mg Tab) 650 mg PO Q4 PRN PRN Reason: Pain, Mild (1-3) Last Admin: 10/25/17 17:18 Dose: 650 mg Acetylcysteine (Acetylcysteine 20%) 3 ml INH BIDRESP FRANKY Last Admin: 10/25/17 19:59 Dose: Not Given Albuterol/Ipratropium (Duoneb 3 Mg/0.5 Mg (3 Ml) Ud) 3 ml IH [id number] PRN PRN Reason: Shortness of Breath Last Admin: 10/24/17 08:02 Dose: 3 ml Arformoterol Tartrate (Brovana) 15 mcg IH [id number] [facility] Last Admin: 10/25/17 19:59 Dose: 15 mcg Benzocaine/Menthol (Cepacol Sore Throat) 1 jackeline MT Q2H PRN PRN Reason: Sore Throat Last Admin: 10/26/17 00:43 Dose: 1 jackeline Budesonide (Pulmicort Respules) 0.5 mg IH [id number] [facility] Last Admin: 10/25/17 19:59 Dose: 0.5 mg Heparin Sodium (Porcine) (Heparin) 5,000 units SC Q12 FRANKY PRN Reason: Protocol Last Admin: 10/25/17 21:22 Dose: 5,000 units Potassium Chloride/Dextrose/Sod Cl (Potassium Chl 20 Meq In D5-1/2ns) 1,000 mls @ 50 mls/hr IV .Q20H [facility] Last Admin: 10/25/17 21:27 Dose: 50 mls/hr Methylprednisolone (Solu-Medrol) 20 mg IVP Q12 [facility] Last Admin: 10/25/17 21:22 Dose: 20 mg Ondansetron HCl (Zofran Inj) 4 mg IVP Q6H PRN PRN Reason: Nausea/Vomiting Pantoprazole Sodium (Protonix Ec Tab) 20 mg PO 0600,1600 [facility] Last Admin: 10/26/17 05:41 Dose: 20 mg Potassium Chloride (K-Dur 20 Meq Er Tab) 30 meq PO BID [facility] Last Admin: 10/25/17 17:18 Dose: 30 meq Zolpidem Tartrate (Ambien) 5 mg PO HS PRN; Protocol PRN Reason: Insomnia Last Admin: 10/26/17 00:30 Dose: 5 mg - Labs Labs: 10/26/17 06:00 10/26/17 06:00 PT 12.8 SECONDS (9.4-12.5) H 10/24/17 05:30 INR 1.11 (0.93-1.08) H 10/24/17 05:30 APTT 28.5 Seconds (25.1-36.5) 10/24/17 05:30
[2017-10-26] MEDS: Acetylcysteine 20% Inhal Soln (4ml) INH SCH ×2 (08:36→19:56)
[2017-10-26] MEDS: Budesonide 0.5 mg/2 ml Inhal Susp UD IH SCH ×2 (08:52→19:57)
[2017-10-26] MEDS: Arformoterol 15 mcg/2 ml Inh Sol IH SCH ×2 (08:52→19:56)
[2017-10-26] MEDS: MethylPREDNISolone 40 mg Vial IVP SCH (09:03)
[2017-10-26] MEDS: Potassium Chloride 20 mEq ER Tab PO SCH ×2 (09:04→17:11)
--- NOTE | 2017-10-26 14:24 | CP.PCM.DIS ---
Provider - Provider Date of Admission: 10/19/17 17:49 Attending physician: Adolfo Durbin MD Consults: Cardio: Dr. Olivier IR: Dr. Chandler Pulm: Dr. Dent Surgery: Dr. Daniels Radiation/Onc: Dr. Vega Time Spent in preparation of Discharge (in minutes): 45 Diagnosis - Discharge Diagnosis (1) Lung cancer Status: Chronic Hospital Course - Lab Results Lab Results: Micro Results 10/20/17 03:18 Sputum Gram Stain - Final 10/20/17 03:18 Sputum Sputum Culture - Final NORMAL ORAL LEANNA Most Recent Lab Values WBC 9.0 10^3/ul (4.5-11.0) D 10/26/17 06:00 RBC 4.12 10^6/uL (3.5-6.1) 10/26/17 06:00 Hgb 11.6 g/dL (14.0-18.0) L 10/26/17 06:00 Hct 37.6 % (42.0-52.0) L 10/26/17 06:00 MCV 91.3 fl (80.0-105.0) 10/26/17 06:00 MCH 28.2 pg (25.0-35.0) 10/26/17 06:00 MCHC 30.9 g/dl (31.0-37.0) L 10/26/17 06:00 RDW 14.2 % (11.5-14.5) 10/26/17 06:00 Plt Count 339 10^3/uL (120.0-450.0) 10/26/17 06:00 MPV 10.0 fl (7.0-11.0) 10/26/17 06:00 Gran % 85.4 % (50.0-68.0) H 10/26/17 06:00 Lymph % (Auto) 10.1 % (22.0-35.0) L 10/26/17 06:00 [place] % (Auto) 4.5 % (1.0-6.0) 10/26/17 06:00 Eos % (Auto) 0.0 % (1.5-5.0) L 10/26/17 06:00 Baso % (Auto) 0.0 % (0.0-3.0) 10/26/17 06:00 Gran # 7.65 (1.4-6.5) H 10/26/17 06:00 Lymph # (Auto) 0.9 (1.2-3.4) L 10/26/17 06:00 [place] # (Auto) 0.4 (0.1-0.6) 10/26/17 06:00 Eos # (Auto) 0.0 (0.0-0.7) 10/26/17 06:00 Baso # (Auto) 0.00 K/mm3 (0.0-2.0) 10/26/17 06:00 Neutrophils % (Manual) 90 % (50.0-70.0) H 10/22/17 06:30 Band Neutrophils % 3 % (0-2) H 10/22/17 06:30 Lymphocytes % (Manual) 6 % (22.0-35.0) L 10/22/17 06:30 Monocytes % (Manual) 1 % (1.0-6.0) 10/22/17 06:30 Platelet Evaluation Normal (NORMAL) 10/22/17 06:30 PT 12.8 SECONDS (9.4-12.5) H 10/24/17 05:30 INR 1.11 (0.93-1.08) H 10/24/17 05:30 APTT 28.5 Seconds (25.1-36.5) 10/24/17 05:30 Sodium 136 mmol/L (132-148) 10/26/17 06:00 Potassium 3.9 mmol/L (3.6-5.0) 10/26/17 06:00 Chloride 92 mmol/L (98-107) L 10/26/17 06:00 Carbon Dioxide 35 mmol/L (21-33) H 10/26/17 06:00 Anion Gap 13 (10-20) 10/26/17 06:00 BUN 11 mg/dL (7-21) 10/26/17 06:00 Creatinine 0.5 mg/dl (0.8-1.5) L 10/26/17 06:00 Est GFR ( Amer) > 60 10/26/17 06:00 Est GFR (Non-Af Amer) > 60 10/26/17 06:00 Random Glucose 210 mg/dL (70-110) H 10/26/17 06:00 Calcium 8.5 mg/dL (8.4-10.5) 10/26/17 06:00 Magnesium 1.8 mg/dL (1.7-2.2) 10/19/17 17:06 Total Bilirubin 0.3 mg/dL (0.2-1.3) 10/26/17 06:00 AST 30 U/L (17-59) 10/26/17 06:00 ALT 40 U/L (7-56) 10/26/17 06:00 Alkaline Phosphatase 108 U/L (38-126) 10/26/17 06:00 Lactate Dehydrogenase 872 U/L (333-699) H 10/19/17 17:06 Total Creatine Kinase 35 U/L (35-230) 10/19/17 17:06 Troponin I < 0.01 ng/mL 10/19/17 17:06 NT-Pro-B Natriuret Pep 334 pg/mL (0-450) 10/19/17 17:06 Total Protein 6.4 g/dL (5.8-8.3) 10/26/17 06:00 Albumin 3.1 g/dL (3.0-4.8) 10/26/17 06:00 Globulin 3.3 gm/dL 10/26/17 06:00 Albumin/Globulin Ratio 0.9 (1.1-1.8) L 10/26/17 06:00 Carcinoembryonic Ag 28.8 ng/mL (0.0-3.0) H 10/20/17 05:15 Discharge Exam - Head Exam Head Exam: ATRAUMATIC, NORMAL INSPECTION, NORMOCEPHALIC Discharge Plan - Follow Up Plan Condition: FAIR Disposition: HOME/ ROUTINE
--- NOTE | 2017-10-26 14:30 | CP.PCM.PN ---
Subjective - Date & Time of Evaluation Date of Evaluation: 10/26/17 Time of Evaluation: 14:25 - Subjective Subjective: Heme-Onc Progress note for Dr. Durbin Patient seen and examined at bedside. s/p chest tube removal on 10/25. Nursing reported no acute events overnight. Patient was sitting up in bed resting comfortably. He had radiation mapping done today. Denied acute complaints of fever, chills, headache, dizziness, chest pain, palpitations, SOB, cough, abd pain, nausea, vomiting, bowel/bladder complaints, pain/swelling in his legs bilaterally. Objective - Vital Signs/Intake and Output Vital Signs (last 24 hours): Temp Pulse Resp BP Pulse Ox 98.0 F 81 20 128/78 98 10/26/17 07:43 10/26/17 10:00 10/26/17 07:43 10/26/17 07:43 10/26/17 07:43 Intake and Output: 10/26/17 10/26/17 06:59 18:59 Intake Total 780 Output Total 1200 Balance -420 - Labs Labs: 10/26/17 06:00 10/26/17 06:00 PT 12.8 SECONDS (9.4-12.5) H 10/24/17 05:30 INR 1.11 (0.93-1.08) H 10/24/17 05:30 APTT 28.5 Seconds (25.1-36.5) 10/24/17 05:30 - Constitutional Appears: No Acute Distress, Chronically Ill - Head Exam Head Exam: ATRAUMATIC, NORMAL INSPECTION, NORMOCEPHALIC - Eye Exam Eye Exam: EOMI, Normal appearance. absent: Conjunctival injection, Scleral icterus - ENT Exam ENT Exam: Mucous Membranes Moist - Neck Exam Neck Exam: Full ROM - Respiratory Exam Respiratory Exam: NORMAL BREATHING PATTERN. absent: Accessory Muscle Use, Respiratory Distress - Cardiovascular Exam Cardiovascular Exam: +S1, +S2 - GI/Abdominal Exam GI & Abdominal Exam: Soft, Normal Bowel Sounds. absent: Firm, Guarding - Rectal Exam Rectal Exam: Deferred - Extremities Exam Extremities Exam: Normal Capillary Refill, Normal Inspection. absent: Pedal Edema - Neurological Exam Neurological Exam: Alert, Awake, CN II-XII Intact, Oriented x3 - Psychiatric Exam Psychiatric exam: Normal Affect, Normal Mood - Skin Skin Exam: Dry, Intact, Normal Color, Warm Assessment and Plan - Assessment and Plan (Free Text) Assessment: 72yo male PMHx prostate ca s/p radiation, new left perihilar mass and tobacco abuse presented to the [facility] ED with complaints of progressively worsening shortness of breath. Patient was admitted for large left pleural effusion. CT chest also found lung nodules, and adrenal lesions. Patient s/p thoracentesis and lung biopsy. Hospital course complicated by left pneumothorax. Patient is s/ p chest tube placement by IR. 180cc serosanguinous drainage from chest tube overnight. Cytology showed mesothelial cells and lymphocytes. Pulmonary recommending palliative local radiation. Patient had mapping done today. Dr. Vega on board- reccs appreciated. Dr. Olivier on board- reccs apprecaited. Surgery and IR on board- reccs appreciated. Patient educated and counselled on tobacco cessation. Patient will likely need port in the future. Pain well controlled. Labs and VS reviewed. Discussed with attending. Alexandria Baltazar PGY2
[2017-10-26] MEDS ORDERED: Albuterol-Ipratrop 3 mg / 0.5 (3 ml) UD IH PRN (15:57)
[2017-10-26] MEDS ORDERED: Benzocaine/Menthol (Cepacol) Lozenge MT PRN (15:57)
[2017-10-26] MEDS ORDERED: Potassium Ch 20mEq in D5-1/2NS 1,000 ML IV SCH (16:00)
[2017-10-26] MEDS ORDERED: MethylPREDNISolone 40 mg Vial IVP SCH (22:00)
--- NOTE | 2017-10-26 23:18 | PN ---
DATE: 10/26/2017 PULMONARY PROGRESS NOTE REFERRING PHYSICIAN: Adolfo Durbin MD SUBJECTIVE: Patient is lying in the bed, head at 45 degrees. Family is at bedside and feels better. Still has some cough and sputum production. No nausea, vomiting or diarrhea. No leg pain or leg swelling. Left side catheter has been removed. OBJECTIVE: GENERAL: In no acute distress. VITAL SIGNS: Temperature is 98, heart rate is 81, respiratory rate is 20, blood pressure 128/78, pulse ox 98% on 2 L nasal cannula. HEENT: Moist mucous membrane. Crowded airway. NECK: Supple. No JVD. LUNGS: Have a fair airflow with few rhonchi. HEART: S1 and S2 audible. ABDOMEN: Soft, nontender. No organomegaly. EXTREMITIES: There is no edema. NEUROLOGICAL: Awake and alert. Follows simple command. MEDICATIONS: He is on Mucomyst 20% inhaled twice a day, Ambien 5 mg at bedtime p.r.n., Brovana inhaled twice a day, Cepacol lozenges every 2 hour p.r.n., DuoNeb every 6 hour p.r.n., heparin 5000 units subcu every 12 hour, potassium 30 mEq daily, IV fluid 50 mL per hour, Protonix 20 mg twice a day, Pulmicort inhaled twice a day, Solu-Medrol 20 mg every 12 hour, Tylenol p.r.n., Zofran p.r.n. basis. LABORATORY DATA: Shows hemoglobin 11.6, hematocrit 37.6, WBC 9, platelet is 339. Sodium 136, potassium 3.9, chloride 92, bicarbonate 37, BUN 11, creatinine 0.5, glucose 210, calcium 8.5. AST 30, ALT 40, alk phos is 108. Albumin is 3.1. Sputum culture so far there is normal chrissy. IMPRESSION AND PLAN: Lung tumor with lymph node involvement, adrenal masses, status post lung biopsy, thoracentesis. Biopsy report is still pending. Thoracentesis cytology negative for malignancy, status post pneumothorax, requiring chest tube, which being removed already. Clinically he is much better now. Case discussed with private medical doctor. Also spoke to nursing staff. Case discussed with patient's family at bedside. All the questions answered. Patient is being followed by Radiation Oncology. Hopefully can discharge home tomorrow discontinuing Solu-Medrol, send home with Breo 200/25 one puff daily, rescue inhaler ProAir HFA two puff every 4 hours p.r.n. Patient's pulse oximetry with nasal cannula is 98%; off nasal cannula, room air 93%; with ambulation at room air is 90%. At present time patient does not need oxygen. May go home without oxygen, but will follow him as an outpatient and reassess. Thank you and we will follow with you. Judit Dent MD
[2017-10-27] MEDS: Pantoprazole 20 mg EC Tab PO SCH (05:22)
[2017-10-27 07:33] VITALS: BP 119/70; PULSE 90; RESP 20; TEMP 98.6; O2SAT 97
[2017-10-27] MEDS: Budesonide 0.5 mg/2 ml Inhal Susp UD IH SCH (07:46)
[2017-10-27] MEDS: Acetylcysteine 20% Inhal Soln (4ml) INH SCH (07:46)
[2017-10-27] MEDS: Arformoterol 15 mcg/2 ml Inh Sol IH SCH (07:46)
[2017-10-27] MEDS: Potassium Chloride 20 mEq ER Tab PO SCH (09:21)
[2017-10-27] MEDS ORDERED: MethylPREDNISolone 40 mg Vial IV SCH (10:00)
--- NOTE | 2017-10-27 10:35 | CP.PCM.DIS ---
Provider - Provider Date of Admission: 10/19/17 17:49 Attending physician: Adolfo Durbin MD Consults: Cardio: Soy DOAN: Ramesh Pulm: Jailene Gonzalez: Jeremiah Time Spent in preparation of Discharge (in minutes): 45 Hospital Course - Lab Results Lab Results: Micro Results 10/20/17 03:18 Sputum Gram Stain - Final 10/20/17 03:18 Sputum Sputum Culture - Final NORMAL ORAL LEANNA Most Recent Lab Values WBC 9.0 10^3/ul (4.5-11.0) D 10/26/17 06:00 RBC 4.12 10^6/uL (3.5-6.1) 10/26/17 06:00 Hgb 11.6 g/dL (14.0-18.0) L 10/26/17 06:00 Hct 37.6 % (42.0-52.0) L 10/26/17 06:00 MCV 91.3 fl (80.0-105.0) 10/26/17 06:00 MCH 28.2 pg (25.0-35.0) 10/26/17 06:00 MCHC 30.9 g/dl (31.0-37.0) L 10/26/17 06:00 RDW 14.2 % (11.5-14.5) 10/26/17 06:00 Plt Count 339 10^3/uL (120.0-450.0) 10/26/17 06:00 MPV 10.0 fl (7.0-11.0) 10/26/17 06:00 Gran % 85.4 % (50.0-68.0) H 10/26/17 06:00 Lymph % (Auto) 10.1 % (22.0-35.0) L 10/26/17 06:00 [place] % (Auto) 4.5 % (1.0-6.0) 10/26/17 06:00 Eos % (Auto) 0.0 % (1.5-5.0) L 10/26/17 06:00 Baso % (Auto) 0.0 % (0.0-3.0) 10/26/17 06:00 Gran # 7.65 (1.4-6.5) H 10/26/17 06:00 Lymph # (Auto) 0.9 (1.2-3.4) L 10/26/17 06:00 [place] # (Auto) 0.4 (0.1-0.6) 10/26/17 06:00 Eos # (Auto) 0.0 (0.0-0.7) 10/26/17 06:00 Baso # (Auto) 0.00 K/mm3 (0.0-2.0) 10/26/17 06:00 Neutrophils % (Manual) 90 % (50.0-70.0) H 10/22/17 06:30 Band Neutrophils % 3 % (0-2) H 10/22/17 06:30 Lymphocytes % (Manual) 6 % (22.0-35.0) L 10/22/17 06:30 Monocytes % (Manual) 1 % (1.0-6.0) 10/22/17 06:30 Platelet Evaluation Normal (NORMAL) 10/22/17 06:30 PT 12.8 SECONDS (9.4-12.5) H 10/24/17 05:30 INR 1.11 (0.93-1.08) H 10/24/17 05:30 APTT 28.5 Seconds (25.1-36.5) 10/24/17 05:30 Sodium 136 mmol/L (132-148) 10/26/17 06:00 Potassium 3.9 mmol/L (3.6-5.0) 10/26/17 06:00 Chloride 92 mmol/L (98-107) L 10/26/17 06:00 Carbon Dioxide 35 mmol/L (21-33) H 10/26/17 06:00 Anion Gap 13 (10-20) 10/26/17 06:00 BUN 11 mg/dL (7-21) 10/26/17 06:00 Creatinine 0.5 mg/dl (0.8-1.5) L 10/26/17 06:00 Est GFR ( Amer) > 60 10/26/17 06:00 Est GFR (Non-Af Amer) > 60 10/26/17 06:00 Random Glucose 210 mg/dL (70-110) H 10/26/17 06:00 Calcium 8.5 mg/dL (8.4-10.5) 10/26/17 06:00 Magnesium 1.8 mg/dL (1.7-2.2) 10/19/17 17:06 Total Bilirubin 0.3 mg/dL (0.2-1.3) 10/26/17 06:00 AST 30 U/L (17-59) 10/26/17 06:00 ALT 40 U/L (7-56) 10/26/17 06:00 Alkaline Phosphatase 108 U/L (38-126) 10/26/17 06:00 Lactate Dehydrogenase 872 U/L (333-699) H 10/19/17 17:06 Total Creatine Kinase 35 U/L (35-230) 10/19/17 17:06 Troponin I < 0.01 ng/mL 10/19/17 17:06 NT-Pro-B Natriuret Pep 334 pg/mL (0-450) 10/19/17 17:06 Total Protein 6.4 g/dL (5.8-8.3) 10/26/17 06:00 Albumin 3.1 g/dL (3.0-4.8) 10/26/17 06:00 Globulin 3.3 gm/dL 10/26/17 06:00 Albumin/Globulin Ratio 0.9 (1.1-1.8) L 10/26/17 06:00 Carcinoembryonic Ag 28.8 ng/mL (0.0-3.0) H 10/20/17 05:15 - Hospital Course Hospital Course: Upon Admission: 72 M with a PMHx of prostate ca s/p radiation, new left perihilar mass and tobacco abuse presents to the [facility] ED with complaints of progressively worsening shortness of breath. Patient was admitted first admitted to med/surg and then transferred to remote TELE. Patient had LE U/S negative for DVT b/l. CT chest/ abd/pelvis was significant for severe atelectasis of the left lung with mediastinal shift to the left and moderaste size left effusion. Opacification of left mainstem bronchus was noted which probably represented a mucous plug however endobronchial lesion could not be excluded. Extensive right sided supraclavicular adenopathy noted. Bilateral adrenal masses right greater than left suspicious for metastatic disease. IR Dr. Chandler was consulted for thoracentesis and biopsy of lung/adrenals. Patient had a CT guided left lung biopsy on 10/20 by IR and u/s guided left thoracentesis which aspirated 100cc clear straw colored fluid. Cytology showed mesothelial cells and lymphocytes. Patient had a CXR on 10/20 that showed left sided pneumothorax and general surgery was consulted who recommended chest tube. Patient had a CT guided anterior chest tube placement 10/[address] Vega was consulted for possible palliative radiation to the mainstem bronchus. Patient clinically improved and had chest tube removed on 10/25. He had simulation and mapping for radiation on 10/26. Patient seen and examined at bedside this AM and deemed stable for discharge. Patient will likely need a port in the future. Upon Discharge: Patient stable for discharge as per Dr. Wolf and Dr. Durbin Patient to take new medications as prescribed Patient has transportation set up for Monday for radiation. Patient given Rx for PET-CT scan. Patient also given Rx for a rolling walker and a spacer. Patient to follow up in Dr. Wolf's clinic within 7 days. If symptoms persist or worsen patient to visit ER immediately. Instructions discussed in detail with patient who understands and agrees. Discharge Exam - Head Exam Head Exam: ATRAUMATIC, NORMAL INSPECTION, NORMOCEPHALIC - Eye Exam Eye Exam: EOMI, Normal appearance, PERRL. absent: Conjunctival injection, Scleral icterus Pupil Exam: PERRL - ENT Exam ENT Exam: Mucous Membranes Moist - Neck Exam Neck exam: Full Rom - Respiratory Exam Respiratory Exam: Clear to PA & Lateral, NORMAL BREATHING PATTERN. absent: Accessory Muscle Use, Rales, Rhonchi, Wheezes - Cardiovascular Exam Cardiovascular Exam: +S1, +S2 - GI/Abdominal Exam GI & Abdominal Exam: Normal Bowel Sounds, Soft. absent: Tenderness - Rectal Exam Rectal Exam: Deferred - Extremities Exam Extremities exam: normal inspection, pedal pulses present - Neurological Exam Neurological exam: Alert, CN II-XII Intact, Oriented x3 - Psychiatric Exam Psychiatric exam: Normal Affect, Normal Mood - Skin Skin Exam: Dry, Intact, Normal Color, Warm Discharge Plan - Discharge Medications Prescriptions: Albuterol Sulfate [Proair Hfa] 2 mg IH Q4H 30 Days inh Benzocaine/Menthol [Cepacol Sore Throat] 1 jackeline MT Q2H PRN #60 jackeline PRN Reason: Sore Throat Clotrimazole [Mycelex Francisca] 10 mg MM Q4H 14 Days jackeline Fluticasone/Vilanterol [Breo Ellipta 200-25 Mcg INH] 1 each IH DAILY 30 Days blst.w.natividad Lansoprazole [Prevacid] 1 cap PO DAILY #30 capsule. Pantoprazole Sodium [Protonix] 40 mg PO DAILY #30 ect predniSONE [Prednisone] See Taper PO DAILY 15 Days #15 tab - Follow Up Plan Condition: FAIR Disposition: HOME/ ROUTINE Instructions: Lung Cancer (DC), Radiation Therapy Additional Instructions: Patient stable for discharge as per Dr. Wolf and Dr. Durbin Patient to take new medications as prescribed. Patient has transportation set up for Monday for radiation. Patient given Rx for PET-CT scan. Patient also given Rx for a rolling walker. Patient to follow up in Dr. Wolf's clinic within 7 days. If symptoms persist or worsen patient to visit ER immediately. Instructions discussed in detail with patient who understands and agrees. Referrals: Bernadette Vega MD [Staff Provider] - Artem Wolf MD [Staff Provider] -
--- NOTE | 2017-10-27 20:49 | PN ---
DATE: 10/27/2017 PULMONARY PROGRESS NOTE REFERRING PHYSICIAN: Adolfo Durbin MD. SUBJECTIVE: He is lying in the bed. Head at 45 degrees. Feels much better. Decreased cough. Decreased shortness of breath. No nausea, no vomiting, no diarrhea. No leg pain or leg swelling. PHYSICAL EXAMINATION: GENERAL: In no acute distress. VITAL SIGNS: Temperature is 98, heart rate is 90, respiratory rate is 20, blood pressure 119/70, pulse ox 97% on 1 L nasal cannula, on room air is 96%. HEENT: Moist mucous membrane. No ulcer or thrush noted. NECK: Supple. No JVD. LUNGS: Have a fair airflow with rhonchi. HEART: S1 and S2. ABDOMEN: Soft, nontender. No organomegaly. EXTREMITIES: There is no edema. NEUROLOGICAL: Awake and alert. Follows simple command. MEDICATIONS: Reviewed and noted. No new changes in medication reported since yesterday. LABORATORY DATA: Hemoglobin 11.6, hematocrit 37.6, WBC 9. He has a lung biopsy done on 10/20/2017; the official report is still pending. IMPRESSION AND PLAN: Has a lung tumor with lymph node involvement, especially supraclavicular; also has adrenal mass; pleural effusion; chronic obstructive lung disease, status post lung biopsy, report is still pending; and pneumothorax requiring chest tube. Presently, chest tube has been removed. He was seen by Radiation Oncology, awaiting for lung biopsy report. Patient can be discharged home on tapered dose of steroids, can be on p.o. and inhaled bronchodilator. May go home on room air. Outpatient, need pulmonary function test. Also need Oncology Radiation followup and Hematology/Oncology followup. Thank you and we will follow with you. Judit Dent MD
== END 2017-10-27 15:42 | disposition home or self-care (01) | DRG 181 ==
LOC: ED 16:02 → ERH 17:49 → 3RSO 21:15 → UNDODISIN 10-26 13:41
PROVIDERS: ADMIT Family Medicine; ATTEND Family Medicine
PROC: 0W9B3ZZ Drainage of Left Pleural Cavity, Percutaneous Approach (ICD-10-PCS; 2017-10-20)
PROC: 3E0F7GC Introduction of Other Therapeutic Substance into Respiratory Tract, Via Natural or Artificial Opening (ICD-10-PCS; 2017-10-20)
PROC: 0BBL3ZX Excision of Left Lung, Percutaneous Approach, Diagnostic (ICD-10-PCS; principal; 2017-10-20 14:00)
PROC: 0W9B30Z Drainage of Left Pleural Cavity with Drainage Device, Percutaneous Approach (ICD-10-PCS; 2017-10-23)
PROC: 0BPQX0Z Removal of Drainage Device from Pleura, External Approach (ICD-10-PCS; 2017-10-25)
DX: C34.02 Malignant neoplasm of left main bronchus (principal); J90 Pleural effusion, not elsewhere classified; J93.9 Pneumothorax, unspecified; C79.71 Secondary malignant neoplasm of right adrenal gland; C79.72 Secondary malignant neoplasm of left adrenal gland; C77.0 Secondary and unspecified malignant neoplasm of lymph nodes of head, face and neck; I47.2 Ventricular tachycardia; J98.11 Atelectasis; E87.6 Hypokalemia; J44.9 Chronic obstructive pulmonary disease, unspecified; R62.7 Adult failure to thrive; Z85.46 Personal history of malignant neoplasm of prostate; Z92.3 Personal history of irradiation; Z87.891 Personal history of nicotine dependence

== ENCOUNTER 2017-11-08 13:40 | Inpatient (IN) | payer MEDICARE, BC ==
--- NOTE | 2017-11-08 13:59 | ED PDOC ---
Arrival/HPI <Elvis Tim - Last Filed: 11/08/17 16:00> - General Historian: Patient - History of Present Illness Time/Duration: 24 hours Symptom Onset: Sudden Symptom Course: Unchanged Quality: Aching Severity Level: 10 <Noah Reagan - Last Filed: 11/08/17 16:05> - General Chief Complaint: Lower Extremity Problem/Injury Time Seen by Provider: 11/08/17 13:49 - History of Present Illness Narrative History of Present Illness (Text): 72 year old male with recently diagnosed lung adenocarcinoma with metastases, on radiation presents with right ankle pain which began yesterday. Patient denies trauma. Foot and ankle xrays done yesterday show lytic lesion in distal tibia. Patient denies chest pain, SOB, fever, chills, nausea, vomiting, or any other complaints at this time. 11/08/17 14:20 (Noah Reagan) Past Medical History - Provider Review Nursing Documentation Reviewed: Yes - Infectious Disease Hx of Infectious Diseases: None - Cardiac Hx Pacemaker: No - Pulmonary Hx Lung Cancer: Yes - HEENT Hx HEENT Disorder: No - Renal Hx Renal Disorder: No - Endocrine/Metabolic Hx Endocrine Disorders: No - Hematological/Oncological Hx Blood Transfusions: No Hx Blood Transfusion Reaction: No - Integumentary Hx Dermatological Disorder: No - Musculoskeletal/Rheumatological Hx Musculoskeletal Disorders: No - Gastrointestinal Hx Gastrointestinal Disorders: No - Genitourinary/Gynecological Hx Prostate Cancer: Yes (h/o high risk prostate cancer status post ADT and radiation in 2014) - Psychiatric Hx Substance Use: No - Anesthesia Hx Anesthesia Reactions: No Hx Malignant Hyperthermia: No - Suicidal Assessment Feels Threatened In Home Enviroment: No <Noah Reagan - Last Filed: 11/08/17 16:05> Family/Social History - Physician Review Nursing Documentation Reviewed: Yes <Elvis Tim - Last Filed: 11/08/17 16:00> Family/Social History: No Known Family HX Smoking Status: Former Smoker Hx Alcohol Use: Yes (QUIT 15 MONTHS AGO) Hx Substance Use: No <Noah Reagan - Last Filed: 11/08/17 16:05> Allergies/Home Meds <Elvis Tim - Last Filed: 11/08/17 16:00> <Noah Reagan - Last Filed: 11/08/17 16:05> Allergies/Adverse Reactions: Allergies aspirin Adverse Reaction (Intermediate, Verified 11/06/17 11:48) NAUSEA STOMACH ACHE Home Medications: Home Meds Medication Instructions Recorded Confirmed ALPRAZolam [Xanax] 0.25 mg PO PRN PRN 11/08/17 11/08/17 Review of Systems - Review of Systems Constitutional: Normal. absent: Fatigue, Weight Change, Fevers, Night Sweats Eyes: Normal ENT: Normal Respiratory: Normal Cardiovascular: Normal Gastrointestinal: Normal Genitourinary Male: Normal Musculoskeletal: Other (right ankle pain) Skin: Normal Neurological: Normal Endocrine: Normal Hemo/Lymphatic: Normal Psychiatric: Normal <Noah Reagan Last Filed: 11/08/17 16:05> Physical Exam Vital Signs Reviewed: Yes Temperature: Afebrile Blood Pressure: Normal Pulse: Regular Respiratory Rate: Normal Appearance: Positive for: Well-Appearing, Non-Toxic, Comfortable Pain Distress: Moderate Mental Status: Positive for: Alert and Oriented X 3 - Systems Exam Head: Present: Atraumatic, Normocephalic Pupils: Present: PERRL Extroacular Muscles: Present: EOMI Conjunctiva: Present: Normal Mouth: Present: Moist Mucous Membranes Neck: Present: Normal Range of Motion Respiratory/Chest: Present: Clear to Auscultation, Good Air Exchange Cardiovascular: Present: Regular Rate and Rhythm, Normal S1, S2 Abdomen: Present: Normal Bowel Sounds. No: Tenderness, Distention Upper Extremity: No: Edema Lower Extremity: Present: Edema, Other Neurological: Present: GCS=15, CN II-XII Intact Skin: Present: Warm, Dry Psychiatric: Present: Alert (right ankle tenderness), Oriented x 3 <Noah Reagan - Last Filed: 11/08/17 16:05> Vital Signs Temp Pulse Resp BP Pulse Ox 11/08/17 13:47 97.4 F L 87 18 101/58 L 97 Medical Decision Making - Lab Interpretations I have reviewed the lab results: Yes <Elvis Tim - Last Filed: 11/08/17 16:00> <Noah Reagan - Last Filed: 11/08/17 16:05> ED Course and Treatment: 11/08/17 Patient Seen With Resident: In agreement with resident note. Patient was seen and evaluated with resident, came up with plan and treatment together. (Elvis Tim) Plan -Pain control -CBC, CMP, mag, calcium, phosph 11/08/17 14:[address] Villalta, who is aware and will come in to evaluate patient 11/08/17 15:08 Patient refusing bloodwork, and refusing pain medication Dr. Fuller saw and evaluated patient, will order tibial CT 11/08/17 15:48 Patient will be admitted under Dr. Mccain service 11/08/17 15:49 (Noah Reagan) - Medication Orders Current Medication Orders: Discontinued Medications Hydromorphone HCl (Dilaudid) 1 mg IVP STAT STA Stop: 11/08/17 15:14 Last Admin: 11/08/17 15:29 Dose: Not Given Non-Admin Reason: Patient Refused MAR Pain Assessment Document 11/08/17 15:29 IBAN (Rec: 11/08/17 15:29 IBAN [id number]) Pain Reassessment Is this a pain reassessment? Yes Presence of Pain Presence of Pain Yes Pain Scale Used Pain Scale Used Numeric Description Intensity of Pain at present 8 Disposition/Present on Arrival <Elvis Tim - Last Filed: 11/08/17 16:00> - Present on Arrival Any Indicators Present on Arrival: No History of DVT/PE: No History of Uncontrolled Diabetes: No Urinary Catheter: No History Surgical Site Infection Following: None - Disposition Have Diagnosis and Disposition been Completed?: Yes Disposition Time: 16:05 <Noah Reagan - Last Filed: 11/08/17 16:05> - Disposition Diagnosis: Lytic lesion of bone on x-ray, Lung cancer Disposition: HOSPITALIZED Condition: GOOD Forms: [employer] (Scottish)
[2017-11-08] MEDS ORDERED: HYDROmorphone 0.5 mg/0.5 ml ISec IVP STA (15:13)
--- NOTE | 2017-11-08 16:27 | CP.PCM.CON ---
History of Present Illness - History of Present Illness History of Present Illness: Mr Monson is known to our department. He has stage IV lung cancer. He is getting palliative radiation to the lung. He recently fell while getting onto the van and was complaining of right foot pain. We ordered a x-ray of the ankle and foot which showed a distal tibial lytic lesion. We discussed his case with Dr Wolf, and agreed about palliative radiation as well as getting an ortho evaluation. Past Patient History - Infectious Disease Hx of Infectious Diseases: None - Past Social History Smoking Status: Former Smoker - CARDIAC Hx Pacemaker: No - PULMONARY Hx Lung Cancer: Yes - HEENT Hx HEENT Problems: No - RENAL Hx Chronic Kidney Disease: No - ENDOCRINE/METABOLIC Hx Endocrine Disorders: No - HEMATOLOGICAL/ONCOLOGICAL Hx Blood Transfusions: No Hx Blood Transfusion Reaction: No - INTEGUMENTARY Hx Dermatological Problems: No - MUSCULOSKELETAL/RHEUMATOLOGICAL Hx Musculoskeletal Disorders: No - GASTROINTESTINAL Hx Gastrointestinal Disorders: No - GENITOURINARY/GYNECOLOGICAL Hx Prostate Cancer: Yes (h/o high risk prostate cancer status post ADT and radiation in 2014) - PSYCHIATRIC Hx Substance Use: No - SURGICAL HISTORY Hx Surgeries: No - ANESTHESIA Hx Anesthesia Reactions: No Hx Malignant Hyperthermia: No Meds Allergies/Adverse Reactions: Allergies Allergy/AdvReac Type Severity Reaction Status Date / Time aspirin AdvReac Intermediate NAUSEA Verified 11/06/17 11:48 Results - Vital Signs Recent Vital Signs: Last Vital Signs Temp 97.4 F L 11/08/17 13:47 Pulse 87 11/08/17 13:47 Resp 18 11/08/17 13:47 BP 101/58 L 11/08/17 13:47 Pulse Ox 97 11/08/17 13:47 Assessment & Plan - Assessment and Plan (Free Text) Assessment: Mr Monson has stage IV lung cancer. He is getting palliative radiation to the lung. We simulated him for palliative radiation to the right tibia. He agree with Dr Wolf that he should be evaluated by ortho for input as there is cortical erosion from the lesion and there is a risk of fracture.
[2017-11-08] MEDS ORDERED: oxyCODONE 5 mg Immediate Release Tab PO PRN (20:38)
--- NOTE | 2017-11-09 03:03 | CON ---
DATE: 11/08/2017 ORTHOPEDIC CONSULTATION HISTORY OF PRESENT ILLNESS: The patient is a 72-year-old male of Dr. Wolf and Dr. Durbin with a history of carcinoma of the lung with a metastatic bone lesion to the right distal tibia with an impending fracture. He has tremendous pain and tenderness to the right leg when he stumbled and x-ray showed that he does have a preexisting lytic lesion of the distal tibia, nonarticular, about 2.5 inches above the mortise and is just on the lateral side of the tibia with some erosion of the cortical bone laterally. So, with these findings, the patient has advanced carcinoma of the lungs with primitive AO splint to protect his tibia from inadvertent and forceful motion when he is going for x-ray and procedures and we are going to get a CAT scan of the right tibia and a tibia x-ray because all they got was an ankle x-ray. Dr. Wolf will decide what other diagnostic tests are done because he just had a PET scan and if we go to radiation that would be good, I think these fractures heal with radiation therapy and if not, we have to do open reduction and internal fixation with upright and lateral side of the tibia, but we will leave for Dr. Wolf's input to go through next step. Surgery is not urgent at this time because he is in a well protected cast, he has had good medical workup with Dr. Durbin and Dr. Wolf. FINAL DIAGNOSIS: Metastatic pathologic fracture, right distal tibia. Treatment right now is protective cast and to do a workup with CAT scan and x-rays and medical workup and see if he could tolerate a surgical procedure to stabilize that pathologic fracture, right distal tibia from carcinoma. Dayne Fuller DO
[2017-11-09 03:56] VITALS: BMI 22.1
[2017-11-09 06:32] LABS: BASO # 0.01 K/mm3 (0.0-2.0); BASO % 0.2 % (0.0-3.0); EOS # 0.1 (0.0-0.7); EOS % 1.1 % (1.5-5.0); GRAN # 5.49 (1.4-6.5); GRAN % 84.9 % (50.0-68.0); HEMOGLOBIN 10.1 g/dL (14.0-18.0); LYMPH # 0.6 (1.2-3.4); LYMPH % 9.8 % (22.0-35.0); MEAN CELL VOLUME 89.7 fl (80.0-105.0); MEAN CORPUSCULAR HEMOGLOBIN 28.9 pg (25.0-35.0); MEAN CORPUSCULAR HGB CONC 32.2 g/dl (31.0-37.0); MEAN PLATELET VOLUME 9.8 fl (7.0-11.0); MONO # 0.3 (0.1-0.6); RBC 3.5 10^6/uL (3.5-6.1); RED CELL DISTRIBUTION WIDTH 15.8 % (11.5-14.5); WHITE BLOOD COUNT 6.5 10^3/ul (4.5-11.0)
[2017-11-09 07:02] LABS: ALT/SGPT 24 U/L (7-56); AST/SGOT 24 U/L (17-59); BLOOD UREA NITROGEN 10 mg/dL (7-21); CALCIUM 8.6 mg/dL (8.4-10.5); GFR NON-AFRICAN AMERICAN > 60
[2017-11-09] MEDS: Arformoterol 15 mcg/2 ml Inh Sol IH SCH ×2 (07:26→20:38)
[2017-11-09] MEDS ORDERED: Potassium Chloride 20 mEq ER Tab PO ONE ×3 (09:00→15:00)
--- NOTE | 2017-11-09 09:01 | CP.PCM.CON ---
Past Patient History - Infectious Disease Hx of Infectious Diseases: None - Past Social History Smoking Status: Former Smoker - CARDIAC Hx Cardiac Disorders: No - PULMONARY Hx Respiratory Disorders: No - NEUROLOGICAL Hx Neurological Disorder: No - HEENT Hx HEENT Problems: No - RENAL Hx Chronic Kidney Disease: No - ENDOCRINE/METABOLIC Hx Endocrine Disorders: No - HEMATOLOGICAL/ONCOLOGICAL Hx Blood Disorders: Yes Hx Cancer: Yes (prostate) Other/Comment: radiation - INTEGUMENTARY Hx Dermatological Problems: No - MUSCULOSKELETAL/RHEUMATOLOGICAL Hx Musculoskeletal Disorders: No Hx Falls: Yes (mechanical fall) - GASTROINTESTINAL Hx Gastrointestinal Disorders: No - GENITOURINARY/GYNECOLOGICAL Hx Genitourinary Disorders: Yes Hx Prostate Problems: Yes - PSYCHIATRIC Hx Psychophysiologic Disorder: No Hx Substance Use: No - SURGICAL HISTORY Hx Surgeries: No - ANESTHESIA Hx Anesthesia Reactions: No Hx Malignant Hyperthermia: No Meds Allergies/Adverse Reactions: Allergies Allergy/AdvReac Type Severity Reaction Status Date / Time aspirin AdvReac Intermediate NAUSEA Verified 11/06/17 11:48 - Medications Medications: Current Medications Acetaminophen (Tylenol 325mg Tab) 650 mg PO Q6H PRN PRN Reason: Fever >100.4 F Albuterol/Ipratropium (Duoneb 3 Mg/0.5 Mg (3 Ml) Ud) 3 ml IH Q6H PRN PRN Reason: Shortness of Breath Arformoterol Tartrate (Brovana) 15 mcg IH [id number] Last Admin: 11/09/17 07:26 Dose: 15 mcg Heparin Sodium (Porcine) (Heparin) 5,000 units SC Q12H FRANKY PRN Reason: Protocol Oxycodone HCl (Oxycodone Immediate Release Tab) 5 mg PO Q6H PRN PRN Reason: Pain, severe (8-10) Pantoprazole Sodium (Protonix Ec Tab) 40 mg PO DAILY [facility] Potassium Chloride (K-Dur 20 Meq Er Tab) 20 meq PO ONCE ONE Stop: 11/09/17 09:01 Zolpidem Tartrate (Ambien) 5 mg PO HS PRN; Protocol PRN Reason: Insomnia Last Admin: 11/08/17 23:17 Dose: 5 mg Results - Vital Signs Recent Vital Signs: Last Vital Signs Temp 98.4 F 11/09/17 08:29 Pulse 88 11/09/17 08:29 Resp 20 11/09/17 08:29 BP 109/54 L 11/09/17 08:29 Pulse Ox 95 11/09/17 08:29 - Labs Result Diagrams: 11/09/17 06:00 11/09/17 06:00 Labs: Laboratory Results - last 24 hr 11/09/17 11/09/17 06:00 06:00 WBC 6.5 D RBC 3.50 Hgb 10.1 L Hct 31.4 L MCV 89.7 MCH 28.9 MCHC 32.2 RDW 15.8 H Plt Count 152 MPV 9.8 Gran % 84.9 H Lymph % (Auto) 9.8 L [place] % (Auto) 4.0 Eos % (Auto) 1.1 L Baso % (Auto) 0.2 Gran # 5.49 Lymph # (Auto) 0.6 L [place] # (Auto) 0.3 Eos # (Auto) 0.1 Baso # (Auto) 0.01 Sodium 138 Potassium 3.0 L Chloride 98 Carbon Dioxide 33 Anion Gap 10 BUN 10 Creatinine 0.3 L Est GFR ( Amer) > 60 Est GFR (Non-Af Amer) > 60 Random Glucose 133 H Calcium 8.6 Total Bilirubin 0.5 AST 24 ALT 24 Alkaline Phosphatase 81 Total Protein 6.1 Albumin 3.0 Globulin 3.1 Albumin/Globulin Ratio 1.0 L
--- NOTE | 2017-11-09 09:04 | HP ---
DATE OF EXAM: 11/08/2017 HOSPITAL ADMISSION HISTORY AND PHYSICAL For Dr. Wolf, CHIEF COMPLAINT: Foot pain. HISTORY OF PRESENT ILLNESS: Patient is a 72-year-old male admitted recently for newly diagnosed perihilar mass with resultant tissue biopsy showing poorly differentiated adenocarcinoma with lung most likely as the etiology. With this, the patient is now being treated with radiation as per Dr. Vega with the patient to have had a port placed this week by Dr. Arthur Chandler for chemotherapy as per Dr. Wolf's recommendation. He reportedly stumbled after radiation treatment 2 days prior, getting out to a van with severe right foot pain afterwards. The patient then was recommended for x-rays to be done by Dr. Bernadette Vega yesterday, 11/07/2017. The x-ray of the right foot showed lytic lesion in the distal tibia, the foot is otherwise unremarkable, which is suspicious for metastatic lesion. No obvious pathologic fracture. With the ankle x-ray also done at the same time showing a lytic lesion at the distal tibia measuring 4.3 in height and 2.7 cm diameter suspicious for metastatic lesion. No obvious pathologic fracture. It should also be noted that the patient did have a PET CT scan done on 11/03/2017. The PET CT unfortunately showed large area of atelectasis at the left apex and left upper lobe with intense FDG activity in the posteroinferior margin of a with the patient's history of lung carcinoma, multiple metastatic lesions scattered throughout the skeleton as described, apparent malignant adenopathy. There was apparent malignant adenopathy in the right aspect of the neck and supraclavicular region as well as soft tissue of the posterior upper thorax. Also, metastatic lesion on the right lateral 7th rib, right axilla, lateral aspect of the left pelvis. Also, enlarged bilateral adrenal glands exhibit FDG activity consistent with metastasis, left adrenal gland exiting equal 5.1 and right 4.47. With this, the patient is now to be admitted for analgesic relief of his severe pain and orthopedic evaluation for his lytic lesion to prevent fracture with no weightbearing until cleared by Dr. Fuller, orthopedic surgeon. ALLERGIES: INCLUDE ASPIRIN. 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 FAMILY HISTORY: Heavy smoker approximately 50 years, one pack a day, recently quit when diagnosis was made above. Alcohol, rare use. SOCIAL HISTORY: Two daughters at the bedside, otherwise, noncontributory. 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 REVIEW OF SYSTEMS: Twelve-point review of systems is done, which was negative to questioning except for items mentioned in the history of present illness. PHYSICAL EXAMINATION: VITAL SIGNS: Temperature 97.4, pulse 87, respirations 18, blood pressure 101/58, pulse ox 97%. HEENT: Unremarkable. NECK: Supple. HEART: Regular rate. LUNGS: Rare rhonchi. ABDOMEN: Soft, nontender. EXTREMITIES: Marked decreased range of motion to the right foot with now having been treated by Dr. Fuller with cast with less tenderness as the patient reports as his pain is significantly improved once the cast was placed. SKIN: Warm and dry. NEUROLOGIC: Appears confused, sluggish responses with equal operations clerk bilaterally, decreased strength in the lower extremities. LABORATORY DATA: Refused by the patient. We will ask for them to be done in the mornings. His most recent labs on 10/26/2017, showed white blood cell count of 9, hemoglobin 11.6, hematocrit of 37.6, platelet count of 339,000 with a chem metabolic panel within normal limits except for carbon dioxide of 35, BUN of 11, chloride of 92, nonfasting glucose of 210. His CEA value on 10/20/2017, was 28.8. His INR on 10/24/2017, was 1.11. MEDICATIONS: At this time included Ambien, Brovana, DuoNeb, oxycodone, Protonix, and Tylenol. He had finished a tapering dose of prednisone in the recent past. ASSESSMENT: The assessment for this patient is that of stage IV lung cancer with extensive metastasis to the bone, presently getting palliative radiation to the lung with new lytic lesion of the right ankle and foot, impending fracture with pain, chronic obstructive pulmonary disease, early dementia. Also, the patient had a recent thoracentesis of 100 mL with cytology showing mesothelial cells. He also had a chest tube placement post thoracentesis. Also, failure to thrive and gait disturbance. PLAN: Plan for this patient after conversation with Dr. Wolf is to admit to the medical floor. We will ask for consult with Dr. Dayne Fuller, which was already done with CAT scan of the patient's lytic foot. We will ask for a consult with Dr. Arthur Chandler for port placement. Consult with Dr. Bernadette Vega for continuation of his radiation and with Dr. Dent for treatment of his severe COPD. We will also continue his present medical regimen as listed above with labs to be monitored in the morning. Prognosis for this patient is guarded. This is a complex patient with a comprehensive medically necessary and appropriate visit carried out in excess of 50 minutes [id number] time with the patient and family. All his questions were answered to his satisfaction. Patient was physically brought from Dr. Wolf's office by a wheelchair by myself to the emergency room for admission and treatment as listed above in this severely ill patient.\ Adolfo Durbin MD
[2017-11-09] MEDS: Pantoprazole 40 mg EC Tab PO SCH (11:32)
[2017-11-09] MEDS ORDERED: Magnesium Sulfate 2 gm/50 ml 2 GM/50 ML BAG IVPB ONE (12:30)
--- NOTE | 2017-11-09 14:17 | PN ---
DATE: 11/09/2017 The patient is a 72-year-old male with a history of metastatic lung disease with pathologic fracture of his right tibia. CAT scan shows the cortical disruption of the anterolateral part of distal right tibia 2in above the plafond, but the CAT scan also shows a skipped lesion proximally and above the junction of the mid and partial one-third of the tibia with lytic lesion at the medial portion of the tibia shaft, so he has 2 lesions on the right tibia, he was in pain so we put him in cast when he came in and posterior splint and we cut lateral gutters, but he is a candidate for intramedullary rodding, which could get rid of his pain and make him more functional and mobile, ready to walk, putting some weight on it. Right now, it is hard to put weight on the cast because of cumbersome cast and he will definitely need a walker, but with the catrachito he can put some weight on the cast. So if he is surgically cleared, we could do him on a Monday afternoon to stabilize the right tibia fracture; if not, he could continue on with radiation therapy, which he has been getting for a while. the fracture can be stabilized c an im catrachito when cleared Dayne Fuller DO MTDPaige
[2017-11-09] MEDS: Magnesium Oxide 400 mg Tab UD PO SCH (17:41)
--- NOTE | 2017-11-09 19:28 | CP.PCM.PN ---
<Alexandria Baltazar - Last Filed: 11/09/17 19:24> Subjective - Date & Time of Evaluation Date of Evaluation: 11/09/17 Time of Evaluation: 12:00 - Subjective Subjective: HemeOn Progress note for Dr. Wolf Patient seen and examined at bedside after receiving radiation. Patient was resting comfortably with RLE wrapped in TANISHA bandage. Patient denied any pain in his R ankle. On ROS he denied acute complaints of headache, dizziness, chest pain, SOB, cough, abd pain, nausea, vomiting, bowel/bladder complaints. He did admit to decreased appetite. Objective - Vital Signs/Intake and Output Vital Signs (last 24 hours): Temp Pulse Resp BP Pulse Ox 98.4 F 88 20 109/54 L 95 11/09/17 08:29 11/09/17 08:29 11/09/17 08:29 11/09/17 08:29 11/09/17 08:29 Intake and Output: 11/09/17 11/10/17 18:59 06:59 Intake Total 120 Output Total 700 Balance -580 - Medications Medications: Current Medications Acetaminophen (Tylenol 325mg Tab) 650 mg PO Q6H PRN PRN Reason: Fever >100.4 F Last Admin: 11/09/17 13:40 Dose: 650 mg Acetylcysteine (Acetylcysteine 20%) 3 ml IH BID [facility] Albuterol/Ipratropium (Duoneb 3 Mg/0.5 Mg (3 Ml) Ud) 3 ml IH Q6H PRN PRN Reason: Shortness of Breath Arformoterol Tartrate (Brovana) 15 mcg IH [id number] [facility] Last Admin: 11/09/17 07:26 Dose: 15 mcg Calcium Carbonate (Caltrate) 600 mg PO BID [facility] Last Admin: 11/09/17 17:40 Dose: 600 mg Doxycycline Hyclate (Doryx) 100 mg PO Q12 FRANKY PRN Reason: Protocol Heparin Sodium (Porcine) (Heparin) 5,000 units SC Q12H [facility] PRN Reason: Protocol Last Admin: 11/09/17 11:30 Dose: 5,000 units Magnesium Oxide (Mag-Ox) 400 mg PO BID [facility] Stop: 11/10/17 23:59 Last Admin: 11/09/17 17:41 Dose: 400 mg Oxycodone HCl (Oxycodone Immediate Release Tab) 5 mg PO Q6H PRN PRN Reason: Pain, severe (8-10) Pantoprazole Sodium (Protonix Ec Tab) 40 mg PO DAILY [facility] Last Admin: 11/09/17 11:32 Dose: 40 mg Tramadol HCl (Ultram) 50 mg PO Q8 PRN PRN Reason: Pain, moderate (4-7) Last Admin: 11/09/17 17:41 Dose: 50 mg Zolpidem Tartrate (Ambien) 5 mg PO HS PRN; Protocol PRN Reason: Insomnia Last Admin: 11/08/17 23:17 Dose: 5 mg - Labs Labs: 11/09/17 06:00 11/09/17 06:00 - Constitutional Appears: Chronically Ill - Head Exam Head Exam: ATRAUMATIC, NORMAL INSPECTION, NORMOCEPHALIC - Eye Exam Eye Exam: EOMI, Normal appearance. absent: Conjunctival injection, Scleral icterus - ENT Exam ENT Exam: Mucous Membranes Dry - Respiratory Exam Respiratory Exam: Clear to Ausculation Bilateral, NORMAL BREATHING PATTERN. absent: Accessory Muscle Use, Rales, Rhonchi, Wheezes, Respiratory Distress - Cardiovascular Exam Cardiovascular Exam: +S1, +S2 - GI/Abdominal Exam GI & Abdominal Exam: Soft, Normal Bowel Sounds. absent: Tenderness - Extremities Exam Additional comments: RLE wrapped in TANISHA bandage - Neurological Exam Neurological Exam: Alert, Awake, Oriented x3 - Psychiatric Exam Psychiatric exam: Normal Affect, Normal Mood - Skin Skin Exam: Dry, Intact Assessment and Plan - Assessment and Plan (Free Text) Assessment: 72 yo male PMHx recently diagnosed lung adenoca with mets presented with R ankle pain. CT RLE showed permeative lesion with periosteal reaction along the entire diaphysis of the right tibia with areas of more akin lie cysts and akin cortical destruction and expansion in the most distal aspect of the lesion. 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 Thee is some soft tissue density extending beyond confines of the bone about more distal lucent lesion. Ortho on board regarding possibility of surgery after weighing risks vs benefits. Cardio consulted for risk stratification. IR on board as patient to have port placed tomorrow 11/10. Continue radiation at this time. Pulm on board. Continue pain management. Discussed with Dr. Maryann Baltazar PGY2 <Artem Wolf P - Last Filed: 02/10/18 17:45> Objective - Vital Signs/Intake and Output Vital Signs (last 24 hours): Temp Pulse Resp BP Pulse Ox 98.4 F 72 20 115/62 90 L 11/15/17 18:00 11/15/17 18:00 11/15/17 18:00 11/15/17 18:00 11/15/17 18:00 - Labs Labs: 11/15/17 12:30 11/15/17 06:20 PT 13.3 SECONDS (9.4-12.5) H 11/12/17 06:16 INR 1.15 (0.93-1.08) H 11/12/17 06:16 APTT 28.9 Seconds (25.1-36.5) 11/12/17 06:16 Attending/Attestation - Attestation I have personally seen and examined this patient.: Yes I have fully participated in the care of the patient.: Yes I have reviewed all pertinent clinical information, including history, physical exam and plan: Yes
--- NOTE | 2017-11-09 19:30 | CON ---
DATE: 11/09/2017 PULMONARY CONSULT REFERRING PHYSICIAN: Adolfo Durbin MD. REASON FOR CONSULT: Metastatic lung cancer, been on radiation therapy, also chronic obstructive lung disease. HISTORY OF PRESENT ILLNESS: This is a 72-year-old gentleman, known to have a poorly differentiated adenocarcinoma, which is probably lung origin with metastatic disease to the bone, been on radiation to the lung lesion. Had ankle pain, x-ray was done showed lytic lesions. Seen by Radiation/Oncology. I believe he received radiation to his distal tibia at the lytic lesion area and also received radiation to his chest. Also has some cough and sputum production. Complaining about some oropharyngeal dysphagia. No nausea, no vomiting, no diarrhea. PAST MEDICAL HISTORY: Unresectable lung cancer stage IV with mets, chronic obstructive lung disease, left upper lobe atelectasis. SOCIAL HISTORY: Denying any active smoking at present. No alcohol use. FAMILY HISTORY: No significant cardiopulmonary disease reported. ALLERGY: TO ASPIRIN. MEDICATIONS: He is on Ambien 5 mg at bedtime p.r.n., Brovana inhaled twice a day, calcium carbonate 600 mg twice a day, albuterol/Atrovent nebulizer every 6 hours p.r.n., heparin 5000 units subcu every 12 hours, mag oxide 400 mg twice a day, oxycodone 5 mg every 6 hours p.r.n., Protonix 40 mg daily, Tylenol p.r.n., Ultram 50 mg every 8 hours p.r.n. REVIEW OF SYSTEMS: No headache. No rhinitis. Has some cough, sputum production, complaining about some oropharyngeal dysphagia. No chest pain. No nausea. No vomiting. Has a right leg pain, which has Benjamin wraps. PHYSICAL EXAMINATION: GENERAL: No acute distress. VITAL SIGNS: Temperature is 98, heart rate is 88, respiratory rate is 20, blood pressure 109/54, pulse ox 95% on 2 L nasal cannula. HEENT: Moist mucous membrane. No ulcer or thrush noted. NECK: Supple. No JVD. LUNGS: Have decreased breath sounds in the left upper lobe area. HEART: S1 and S2. ABDOMEN: Soft, nontender. No organomegaly. EXTREMITY: Right lower leg has Benjamin wraps. NEUROLOGICAL: Awake and alert. Follows simple command. LABORATORY DATA: Shows hemoglobin 10.1, hematocrit 31.4, WBC 6.5, platelet is 152. Sodium 138, potassium 3, chloride 98, bicarbonate 33, BUN 10, creatinine 0.3, glucose 133, magnesium 1.6, AST 24, ALT 24, albumin is 3. Has an outpatient PET scan done about 6 days ago, which showed there is a large area of atelectasis in the left apex and the left upper lobe with increased activity in the posterior inferior margin of the opacity consistent with this patient's history of lung cancer. Multiple metastatic lesions scattered throughout the skeleton with apparent malignant adenopathy in the right aspects of the neck and supraclavicular region. Ankle x-ray done 2 days ago shows there is a lytic lesion in the distal tibia measuring 4.3 cm. IMPRESSION AND PLAN: Adenocarcinoma of the lung, which is unresectable with involving the left upper lobe bronchus causing atelectasis. Has metastatic lymph nodes, metastasis to the bones, chronic obstructive lung disease. Case discussed with the nursing staff. I agree with the present management. We will add inhaled bronchodilators, doxycycline 100 mg twice a day. We will get Speech Therapy to do swallow evaluation. Being followed by Orthopedic Surgery and also Radiation/Oncology. Fall precaution. Gastric prophylaxis. Deep venous thrombosis prophylaxis. Thank you and we will follow with you. Judit Dent MD
--- NOTE | 2017-11-09 20:02 | CON ---
DATE: CARDIOLOGY CONSULTATION REASON FOR THE CONSULTATION AND FOLLOWUP: Preop evaluation, risk stratification for possible ankle surgery for a lytic lesion. BRIEF CLINICAL HISTORY: A 72-year-old male with past medical history significant for recently diagnosed adenocarcinoma when the patient was admitted last time with history of weight loss with metastasis to the bone, history of COPD and difficulty in gait, was coming out of the van and probably stumbled and got difficulty in walking. X-ray shows lytic lesion in the ankle. Patient is going for possible surgery to prevent fracture. Patient denies any chest pain, denies any shortness of breath, denies any palpitation. PAST MEDICAL HISTORY: Significant for recently diagnosed poorly differentiated adenocarcinoma and getting chemotherapy for lung. Now, recently found to be in the right leg, a lytic lesion, suspicious for metastatic lesion with no obvious pathological fracture. Patient has also malignant multiple lymphadenopathy consistent with metastatic disease. Past history is significant for COPD. SOCIAL HISTORY: Ex-smoker, a pack a day for many years off and on. History of alcohol abuse in the past. CURRENT MEDICATIONS: Patient is taking Brovana, Ambien, oxycodone, and Tylenol. REVIEW OF SYSTEMS: As per HPI. PHYSICAL EXAMINATION: VITAL SIGNS: Temperature afebrile, heart rate 88, blood pressure 109/54. HEENT: PERRLA, intact. NECK: Supple. No carotid bruit. No thyromegaly. CHEST: Clear to auscultation. HEART: S1 and S2 regular. ABDOMEN: Soft. EXTREMITIES: Clubbing and cyanosis negative. LABORATORY DATA: Blood workup: WBC 6.5, hemoglobin 10.1, hematocrit 31.4, platelet count 152. Chemistry shows sodium 138, potassium 3, chloride 98, carbon dioxide 33, anion gap of 10, BUN 10, creatinine 0.3, magnesium 1.6. EKG on the last admission showed normal sinus, right bundle-branch block. No acute ST-T changes noted. Patient had also echocardiography on 10/20/2017 on the last admission that showed preserved LV function, mild tricuspid regurgitation, left pleural effusion, trace mitral regurgitation, and RV systolic pressure of 33. IMPRESSION: A 72-year-old male with past medical history of recently diagnosed poorly differentiated adenocarcinoma, widespread metastasis, possible multiple bony metastasis and right ankle possibly lytic lesion, but no obvious fracture. May need surgical intervention to prevent fracture. Patient is scheduled for Operative Room. No evidence of arrhythmia. No evidence of congestive heart failure. No history of angina. Patient is okay to go for surgery with moderate underlying comorbidity. No absolute contraindication. Last echo 2 weeks ago shows preserved left ventricular function and trace mitral regurgitation, mild tricuspid regurgitation, right ventricular systolic pressure of 33, calculated ejection fraction of 50%. RECOMMENDATIONS: He is cleared to go for surgery as a moderate risk. We will put low-dose beta sarah to prevent going into atrial fibrillation because patient is getting radiation to the chest. We will follow with you. We will notify the OR and Dr. Fuller, the patient is cleared to go for surgery. Thank you, Dr. Wolf, for providing us the opportunity in taking care of the patient, Alton Monson. Judit Pro MD
[2017-11-10] MEDS: Albuterol-Ipratrop 3 mg / 0.5 (3 ml) UD IH PRN ×2 (03:00→13:26)
--- NOTE | 2017-11-10 04:56 | CP.PCM.PN ---
Subjective - Date & Time of Evaluation Date of Evaluation: 11/10/17 Time of Evaluation: 04:54 - Subjective Subjective: S:Something was requested for anxiety. Has no other complaints. Medical record was reviewed. O: Last Vital Signs 3 Temp 97.9 F 11/10/17 03:44 Pulse 100 H 11/10/17 03:44 Resp 22 11/10/17 03:44 BP 129/56 L 11/10/17 03:44 Pulse Ox 94 L 11/10/17 03:44 Stable. Not in distress. LUNGS:Normal breathing pattern. A:Anxiety. P:Xanax 0.25 mg PO x 1. Objective - Vital Signs/Intake and Output Vital Signs (last 24 hours): Temp Pulse Resp BP Pulse Ox 97.9 F 100 H 22 129/56 L 94 L 11/10/17 03:44 11/10/17 03:44 11/10/17 03:44 11/10/17 03:44 11/10/17 03:44 Intake and Output: 11/09/17 11/10/17 18:59 06:59 Intake Total 120 Output Total 700 250 Balance -580 -250 - Medications Medications: Current Medications Acetaminophen (Tylenol 325mg Tab) 650 mg PO Q6H PRN PRN Reason: Fever >100.4 F Last Admin: 11/09/17 13:40 Dose: 650 mg Acetylcysteine (Acetylcysteine 20%) 3 ml IH BID [facility] Albuterol/Ipratropium (Duoneb 3 Mg/0.5 Mg (3 Ml) Ud) 3 ml IH Q6H PRN PRN Reason: Shortness of Breath Last Admin: 11/10/17 03:00 Dose: 3 ml Arformoterol Tartrate (Brovana) 15 mcg IH [id number] [facility] Last Admin: 11/09/17 20:38 Dose: 15 mcg Calcium Carbonate (Caltrate) 600 mg PO BID [facility] Last Admin: 11/09/17 17:40 Dose: 600 mg Doxycycline Hyclate (Doryx) 100 mg PO Q12 FRANKY PRN Reason: Protocol Last Admin: 11/09/17 22:29 Dose: 100 mg Heparin Sodium (Porcine) (Heparin) 5,000 units SC Q12H [facility] PRN Reason: Protocol Last Admin: 11/09/17 22:31 Dose: 5,000 units Magnesium Oxide (Mag-Ox) 400 mg PO BID [facility] Stop: 11/10/17 23:59 Last Admin: 11/09/17 17:41 Dose: 400 mg Oxycodone HCl (Oxycodone Immediate Release Tab) 5 mg PO Q6H PRN PRN Reason: Pain, severe (8-10) Pantoprazole Sodium (Protonix Ec Tab) 40 mg PO DAILY [facility] Last Admin: 11/09/17 11:32 Dose: 40 mg Tramadol HCl (Ultram) 50 mg PO Q8 PRN PRN Reason: Pain, moderate (4-7) Last Admin: 11/09/17 17:41 Dose: 50 mg Zolpidem Tartrate (Ambien) 5 mg PO HS PRN; Protocol PRN Reason: Insomnia Last Admin: 11/09/17 22:28 Dose: 5 mg - Labs Labs: 11/09/17 06:00 11/09/17 06:00
[2017-11-10 06:59] LABS: BASO # 0.01 K/mm3 (0.0-2.0); BASO % 0.1 % (0.0-3.0); EOS % 0.4 % (1.5-5.0); GRAN # 6.14 (1.4-6.5); GRAN % 86.8 % (50.0-68.0); HEMOGLOBIN 9.8 g/dL (14.0-18.0); LYMPH # 0.6 (1.2-3.4); LYMPH % 7.8 % (22.0-35.0); MEAN CELL VOLUME 90.3 fl (80.0-105.0); MEAN CORPUSCULAR HEMOGLOBIN 28.8 pg (25.0-35.0); MEAN CORPUSCULAR HGB CONC 31.9 g/dl (31.0-37.0); MEAN PLATELET VOLUME 9.6 fl (7.0-11.0); MONO # 0.4 (0.1-0.6); MONO % 4.9 % (1.0-6.0); RBC 3.4 10^6/uL (3.5-6.1); RED CELL DISTRIBUTION WIDTH 15.7 % (11.5-14.5); WHITE BLOOD COUNT 7.1 10^3/ul (4.5-11.0)
[2017-11-10 07:21] LABS: ALB/GLOB RATIO 0.9 (1.1-1.8); ALT/SGPT 23 U/L (7-56); AST/SGOT 21 U/L (17-59); BLOOD UREA NITROGEN 9 mg/dL (7-21); CALCIUM 8.5 mg/dL (8.4-10.5); GFR NON-AFRICAN AMERICAN > 60; HDL CHOLESTEROL 32 mg/dL (29-60)
[2017-11-10 07:29] LABS: LDL CHOLESTEROL 71 mg/dL (0-129)
--- NOTE | 2017-11-10 07:33 | CP.PCM.PN ---
Subjective - Date & Time of Evaluation Date of Evaluation: 11/10/17 Time of Evaluation: 06:25 - Subjective Subjective: Awake,lying in bed,denies hillary pain,denies shortness of breath Reason for consultation and follow up: Cardiac evaluation and risk stratification for possible ankle surgery (lytic lesion in distal tibia) Seen and examined by me and Dr. Pro Objective - Vital Signs/Intake and Output Vital Signs (last 24 hours): Temp Pulse Resp BP Pulse Ox 97.9 F 100 H 22 129/56 L 94 L 11/10/17 03:44 11/10/17 03:44 11/10/17 03:44 11/10/17 03:44 11/10/17 03:44 Intake and Output: 11/10/17 11/10/17 06:59 18:59 Intake Total 120 Output Total 450 Balance -330 - Medications Medications: Current Medications Acetaminophen (Tylenol 325mg Tab) 650 mg PO Q6H PRN PRN Reason: Fever >100.4 F Last Admin: 11/09/17 13:40 Dose: 650 mg Acetylcysteine (Acetylcysteine 20%) 3 ml IH BID [facility] Albuterol/Ipratropium (Duoneb 3 Mg/0.5 Mg (3 Ml) Ud) 3 ml IH Q6H PRN PRN Reason: Shortness of Breath Last Admin: 11/10/17 03:00 Dose: 3 ml Arformoterol Tartrate (Brovana) 15 mcg IH [id number] [facility] Last Admin: 11/09/17 20:38 Dose: 15 mcg Calcium Carbonate (Caltrate) 600 mg PO BID [facility] Last Admin: 11/09/17 17:40 Dose: 600 mg Doxycycline Hyclate (Doryx) 100 mg PO Q12 FRANKY PRN Reason: Protocol Last Admin: 11/09/17 22:29 Dose: 100 mg Heparin Sodium (Porcine) (Heparin) 5,000 units SC Q12H [facility] PRN Reason: Protocol Last Admin: 11/09/17 22:31 Dose: 5,000 units Magnesium Oxide (Mag-Ox) 400 mg PO BID [facility] Stop: 11/10/17 23:59 Last Admin: 11/09/17 17:41 Dose: 400 mg Oxycodone HCl (Oxycodone Immediate Release Tab) 5 mg PO Q6H PRN PRN Reason: Pain, severe (8-10) Pantoprazole Sodium (Protonix Ec Tab) 40 mg PO DAILY [facility] Last Admin: 11/09/17 11:32 Dose: 40 mg Tramadol HCl (Ultram) 50 mg PO Q8 PRN PRN Reason: Pain, moderate (4-7) Last Admin: 11/09/17 17:41 Dose: 50 mg Zolpidem Tartrate (Ambien) 5 mg PO HS PRN; Protocol PRN Reason: Insomnia Last Admin: 11/09/17 22:28 Dose: 5 mg - Labs Labs: 11/10/17 06:30 11/10/17 06:30 - Constitutional Appears: No Acute Distress - Eye Exam Eye Exam: Normal appearance - ENT Exam ENT Exam: Mucous Membranes Moist - Respiratory Exam Respiratory Exam: Decreased Breath Sounds, NORMAL BREATHING PATTERN - Cardiovascular Exam Cardiovascular Exam: +S1, +S2 - GI/Abdominal Exam GI & Abdominal Exam: Soft, Normal Bowel Sounds - Extremities Exam Extremities Exam: Normal Capillary Refill Additional comments: right ankle pain - Neurological Exam Neurological Exam: Alert, Awake, Oriented x3 - Psychiatric Exam Psychiatric exam: Normal Affect - Skin Skin Exam: Intact, Normal Color, Warm Assessment and Plan - Assessment and Plan (Free Text) Assessment: A 72 year old male who came in to the ER due to ankle pain. Foot and ankle x- rays done and showed lytic lesion in distal tibia.For possible surgery to prevent fracture. Consult was called to clear patient for surgery. Recently diagnosed of lung adenocarcinoma poorly differentiated and getting chemotherapy. History of smoking, COPD. Plan: Moderate risk for surgery Clear for surgical procedure No evidence of ischemia or heart failure Stable heart rate and blood pressure Low dose betablocker to prevent Afib Continue current treatment Continue current medications Will follow up Plan and treatment discussed with Dr. Pro
[2017-11-10] MEDS: Acetylcysteine 20% Inhal Soln (4ml) IH SCH ×2 (07:49→20:08)
[2017-11-10] MEDS: Arformoterol 15 mcg/2 ml Inh Sol IH SCH ×2 (07:50→20:08)
[2017-11-10] MEDS ORDERED: Acetylcysteine 20% Inhal Soln (4ml) IH SCH ×2 (08:00→10:00)
--- NOTE | 2017-11-10 08:16 | CP.PCM.PN ---
<Alexandria Baltazar - Last Filed: 11/11/17 17:29> Subjective - Date & Time of Evaluation Date of Evaluation: 11/11/17 Time of Evaluation: 10:30 - [facility] Patient seen and examined at bedside. As per nursing patient was anxious overnight and required a dose of xanax. He also required 2 doses of ultram for pain in his RLE. Patient admitted to pain in his RLE and was requesting the TANISHA wrap to be wrapped tighter. He rated the pain 7/10 in intensity. Patient also complained of a productive cough. Patient had radiation today and is due for port placement. Pending family meeting regarding possibility of surgery. Patient denied other complaints of fever, chills, headache, dizziness, chest pain, palpitations, SOB, abd pain, nausea, vomiting, bowel/bladder complaints, swelling in his legs b/l. He has been encouraged to increase PO intake. Objective - Vital Signs/Intake and Output Vital Signs (last 24 hours): Temp Pulse Resp BP Pulse Ox 97.9 F 100 H 22 129/56 L 94 L 11/10/17 03:44 11/10/17 03:44 11/10/17 03:44 11/10/17 03:44 11/10/17 03:44 Intake and Output: 11/10/17 11/10/17 06:59 18:59 Intake Total 120 Output Total 450 Balance -330 - Medications Medications: Current Medications Acetaminophen (Tylenol 325mg Tab) 650 mg PO Q6H PRN PRN Reason: Fever >100.4 F Last Admin: 11/09/17 13:40 Dose: 650 mg Acetylcysteine (Acetylcysteine 20%) 3 ml IH [id number] [facility] Last Admin: 11/10/17 07:49 Dose: 3 ml Albuterol/Ipratropium (Duoneb 3 Mg/0.5 Mg (3 Ml) Ud) 3 ml IH Q6H PRN PRN Reason: Shortness of Breath Last Admin: 11/10/17 03:00 Dose: 3 ml Arformoterol Tartrate (Brovana) 15 mcg IH [id number] [facility] Last Admin: 11/10/17 07:50 Dose: 15 mcg Calcium Carbonate (Caltrate) 600 mg PO BID [facility] Last Admin: 11/09/17 17:40 Dose: 600 mg Doxycycline Hyclate (Doryx) 100 mg PO Q12 [facility] PRN Reason: Protocol Last Admin: 11/09/17 22:29 Dose: 100 mg Heparin Sodium (Porcine) (Heparin) 5,000 units SC Q12H [facility] PRN Reason: Protocol Last Admin: 11/09/17 22:31 Dose: 5,000 units Magnesium Oxide (Mag-Ox) 400 mg PO BID [facility] Stop: 11/10/17 23:59 Last Admin: 11/09/17 17:41 Dose: 400 mg Metoprolol Tartrate (Lopressor) 25 mg PO BRKDIN [facility] Oxycodone HCl (Oxycodone Immediate Release Tab) 5 mg PO Q6H PRN PRN Reason: Pain, severe (8-10) Pantoprazole Sodium (Protonix Ec Tab) 40 mg PO DAILY [facility] Last Admin: 11/09/17 11:32 Dose: 40 mg Tramadol HCl (Ultram) 50 mg PO Q8 PRN PRN Reason: Pain, moderate (4-7) Last Admin: 11/09/17 17:41 Dose: 50 mg Zolpidem Tartrate (Ambien) 5 mg PO HS PRN; Protocol PRN Reason: Insomnia Last Admin: 11/09/17 22:28 Dose: 5 mg - Labs Labs: 11/10/17 06:30 11/10/17 06:30 - Additional Findings Additional findings: - Constitutional Appears: Chronically Ill - Head Exam Head Exam: ATRAUMATIC, NORMAL INSPECTION, NORMOCEPHALIC - Eye Exam Eye Exam: EOMI, Normal appearance. absent: Conjunctival injection, Scleral icterus - ENT Exam ENT Exam: Mucous Membranes Dry - Respiratory Exam Respiratory Exam: Clear to Ausculation Bilateral, NORMAL BREATHING PATTERN. absent: Accessory Muscle Use, Rales, Rhonchi, Wheezes, Respiratory Distress - Cardiovascular Exam Cardiovascular Exam: +S1, +S2 - GI/Abdominal Exam GI & Abdominal Exam: Soft, Normal Bowel Sounds. absent: Tenderness - Extremities Exam Additional comments: RLE wrapped in TANISHA bandage - Neurological Exam Neurological Exam: Alert, Awake, Oriented x3 - Psychiatric Exam Psychiatric exam: Normal Affect, Normal Mood - Skin Skin Exam: Dry, Intact Assessment and Plan - Assessment and Plan (Free Text) Assessment: 72 yo male PMHx recently diagnosed lung adenoca with mets presented with R ankle pain. CT RLE showed permeative lesion with periosteal reaction along the entire diaphysis of the right tibia with areas of more akin lie cysts and akin cortical destruction and expansion in the most distal aspect of the lesion. 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 Thee is some soft tissue density extending beyond confines of the bone about more distal lucent lesion. Ortho on board regarding possibility of surgery after weighing risks vs benefits. Cardio consulted for risk stratification. IR on board as patient to have port placed tomorrow 11/10. Continue radiation at this time. Pulm on board. Continue pain management. Discussed in detail with family about pin in patient' s RLE; need to monitor patient inpatient due to unstable fracture. Patient also to receive first time chemotherapy inpatient. Discussed with Dr. Maryann Baltazar PGY2 <Artem Wolf P - Last Filed: 02/10/18 17:50> Objective - Vital Signs/Intake and Output Vital Signs (last 24 hours): Temp Pulse Resp BP Pulse Ox 98.4 F 72 20 115/62 90 L 11/15/17 18:00 11/15/17 18:00 11/15/17 18:00 11/15/17 18:00 11/15/17 18:00 - Labs Labs: 11/15/17 12:30 11/15/17 06:20 PT 13.3 SECONDS (9.4-12.5) H 11/12/17 06:16 INR 1.15 (0.93-1.08) H 11/12/17 06:16 APTT 28.9 Seconds (25.1-36.5) 11/12/17 06:16 Attending/Attestation - Attestation I have personally seen and examined this patient.: Yes I have fully participated in the care of the patient.: Yes I have reviewed all pertinent clinical information, including history, physical exam and plan: Yes
[2017-11-10] MEDS: Pantoprazole 40 mg EC Tab PO SCH (10:59)
[2017-11-10] MEDS: Magnesium Oxide 400 mg Tab UD PO SCH ×2 (10:59→17:29)
[2017-11-10] MEDS ORDERED: Lidocaine 2% Inj (20ml) ONE (16:20)
[2017-11-10] MEDS ORDERED: Midazolam 2 MG/2 ML VIAL ONE (16:31)
[2017-11-10] MEDS ORDERED: Sodium Chloride 0.45% 1,000 ML IV SCH (17:15)
--- NOTE | 2017-11-10 18:22 | PN ---
DATE: 11/10/2017 PULMONARY PROGRESS NOTE REFERRING PHYSICIAN: Dr. Wolf. SUBJECTIVE: The patient is lying in the bed, head at 45 degrees. He has some cough, shortness of breath. No nausea. No vomiting. No diarrhea. Right leg has pain. OBJECTIVE: GENERAL: In no acute distress. VITAL SIGNS: Temperature is 98, heart rate 100, respiratory rate is 22, blood pressure 129/56, pulse ox 94% on 2 L nasal cannula. HEENT: Moist mucous membrane. No ulcer or thrush noted. NECK: Supple. No JVD. LUNGS: Decreased breath sounds in the left upper lobe area. Scattered rhonchi. HEART: S1 and S2. ABDOMEN: Soft, nontender. No organomegaly. EXTREMITIES: Right leg Benjamin wraps. NEUROLOGICAL: Awake and alert. Follows simple command. MEDICATIONS: He is on Mucomyst inhaled twice a day, Ambien 5 mg at bedtime p.r.n., Brovana inhaled twice a day, calcium carbonate 600 mg twice a day, doxycycline 100 mg twice a day, DuoNeb every 6 hours p.r.n., heparin 5000 units subcu every 12 hours, Lipitor 10 mg daily, metoprolol tartrate 25 mg twice a day, magnesium oxide 400 mg twice a day, oxycodone 5 mg every 6 hours p.r.n., Protonix 40 mg daily, Tylenol p.r.n., Ultram 50 mg every 8 hours p.r.n., Xanax 0.25 mg at bedtime p.r.n. LABORATORY DATA: Shows hemoglobin 9.8, hematocrit 30.7, WBC 7.1, and platelet count is 157. Sodium 136, potassium 3.9, chloride 97, bicarbonate 32. BUN 9, creatinine 0.4. Glucose 103. Calcium 8.5. AST 21, ALT 23, alkaline phosphatase is 83, albumin is 3. IMPRESSION AND PLAN: Adenocarcinoma of the lung with metastatic disease to the nodes. Also, metastases to the ribs, newly formed metastasis to the right lower extremity requiring radiation. Also, a component of chronic obstructive pulmonary disease with exacerbation. Continue antibiotics. Inhaled bronchodilator. Add Solu-Medrol 20 mg every 12 hours. Case discussed with Dr. Wolf. Gastric prophylaxis. High risk for fracture of the right leg. Keep bed rest for now. Thank you and we will follow with you. Judit Dent MD
--- NOTE | 2017-11-10 19:39 | VASCULAR ---
PROCEDURE: Ultrasound and fluoroscopic right internal jugular venous access port. CLINICAL HISTORY: Metastatic lung carcinoma.Venous port for chemotherapy. PHYSICIAN(S): Arthur Chandler M.D. TECHNIQUE: The relative risks and indications of the procedure were explained to the patient and his daughter and consent obtained. The patient was placed supine on the arteriogram table and the right neck and chest prepped and draped in the usual sterile fashion. Conscious sedation monitoring was provided throughout the procedure by a nurse. Antibiotics were given prior to the procedure. Under direct ultrasound guidance, the right internal jugular vein was punctured with a micro-puncture set. A 0.035 angled Glidewire was advanced into the IVC. A 4 cm incision was made below the right clavicle and the pocket blunted dissected. A 8 Moldovan single-lumen catheter, 25 cm long, was advanced to the SVC/RA junction. The catheter was trimmed and attached to the port. The port aspirates and injects easily. The port was placed in the pocket and closed in 2 layers. The patient tolerated the procedure well. IMPRESSION: Ultrasound and fluoroscopically placed right internal jugular venous access port.
[2017-11-10] MEDS: MethylPREDNISolone 40 mg Vial IVP SCH (21:38)
[2017-11-11 07:19] LABS: ALT/SGPT 25 U/L (7-56); AST/SGOT 22 U/L (17-59); BLOOD UREA NITROGEN 8 mg/dL (7-21); GFR NON-AFRICAN AMERICAN > 60
[2017-11-11 07:25] LABS: GRAN # 4.02 (1.4-6.5); GRAN % 92.6 % (50.0-68.0); HEMOGLOBIN 9.5 g/dL (14.0-18.0); LYMPH # 0.3 (1.2-3.4); MEAN CELL VOLUME 90.1 fl (80.0-105.0); MEAN CORPUSCULAR HEMOGLOBIN 28.4 pg (25.0-35.0); MEAN CORPUSCULAR HGB CONC 31.5 g/dl (31.0-37.0); MONO # 0.1 (0.1-0.6); MONO % 1.4 % (1.0-6.0); PLATELET COUNT 160 10^3/uL (120.0-450.0); RBC 3.35 10^6/uL (3.5-6.1); RED CELL DISTRIBUTION WIDTH 15.6 % (11.5-14.5); WHITE BLOOD COUNT 4.3 10^3/ul (4.5-11.0)
[2017-11-11] MEDS: Arformoterol 15 mcg/2 ml Inh Sol IH SCH ×2 (07:53→19:23)
[2017-11-11] MEDS: Acetylcysteine 20% Inhal Soln (4ml) IH SCH ×2 (07:55→19:23)
[2017-11-11 08:37] LABS: NEUTROPHIL 86 % (50.0-70.0)
[2017-11-11 08:38] LABS: LYMPHOCYTE 10 % (22.0-35.0); MONOCYTE 4 % (1.0-6.0)
[2017-11-11] MEDS: Magnesium Oxide 400 mg Tab UD PO SCH ×2 (10:30→18:05)
[2017-11-11] MEDS: Pantoprazole 40 mg EC Tab PO SCH (10:53)
[2017-11-11] MEDS: MethylPREDNISolone 40 mg Vial IVP SCH ×2 (10:53→21:28)
--- NOTE | 2017-11-11 14:22 | PN ---
DATE: 11/11/2017 REASON FOR CONSULTATION AND FOLLOWUP: Preop evaluation, risk stratification for possible ankle surgery, lytic lesion in the distal tibia. SUBJECTIVE: Patient denies any chest pain, shortness of breath or any palpitation. Patient is not in apparent distress. PHYSICAL EXAMINATION: VITAL SIGNS: Temperature afebrile, heart rate 81, blood pressure 120/55. HEENT: PERRLA. Extraocular muscles intact. NECK: Supple. No carotid bruits or thyromegaly. CHEST: Clear to auscultation. HEART: S1 and S2. Regular. ABDOMEN: Soft. EXTREMITIES: Clubbing and cyanosis negative. LABORATORY DATA: Blood workup as follows. WBC 4.3, hemoglobin 9.5, hematocrit 30.2, platelet count 160. Chemistry shows sodium 134, potassium 4, chloride 96, carbon dioxide 33, anion gap of 9, BUN 8, creatinine 0.4. IMPRESSION: A 72-year-old male with complaint of ankle pain while getting into the car, had to straighten his leg and he stumbled, but x-ray shows lytic lesion, requiring OR intramedullary catrachito, history of lung adenocarcinoma, probably metastasis; history of smoking and chronic obstructive pulmonary disease, getting chemotherapy. RECOMMENDATIONS: Patient is cleared for surgery. Monitor . No absolute contraindication. No evidence of ischemia. No evidence of heart failure. No evidence of arrhythmia. We will give low dose beta-sarah to prevent atrial fibrillation. Increase nutritional support, we will put Ensure because the patient is not eating much. Continue DVT prophylaxis. Continue atorvastatin, low dose. Continue metoprolol. We will follow with you. Discuss with Dr. Fuller. Patient is scheduled for Monday. We will put magnesium oxide to supplement low magnesium. Thank you Dr. Wolf for providing us the opportunity in taking care of the patient, Alton Monson. Judit Pro MD
--- NOTE | 2017-11-11 19:36 | PN ---
DATE: 11/11/2017 PULMONARY PROGRESS NOTE REFERRING PHYSICIAN: Adolfo Durbin MD SUBJECTIVE: He is lying on the bed, head at 45 degrees. Mild cough. Not much sputum production. No nausea. No vomiting. No diarrhea. Still has a right leg pain. PHYSICAL EXAMINATION GENERAL: In no acute distress. VITAL SIGNS: Temperature is 98, heart rate is 95, respiratory rate is 20, blood pressure 107/46, pulse ox 90% on 2 L nasal cannula. HEENT: Moist mucous membrane. No ulcer or thrush noted. NECK: Supple. No JVD. LUNGS: Decreased breath sounds in the left lung. HEART: S1 and S2. ABDOMEN: Soft, nontender. No organomegaly. EXTREMITIES: Has a right leg Benjamin wraps. NEUROLOGICAL: Awake and alert. Follows simple command. MEDICATIONS: He is on Mucomyst inhaled twice a day, Ambien 5 mg at bedtime p.r.n., Brovana inhaled twice a day, calcium carbonate 600 mg twice a day, doxycycline 100 mg twice a day, DuoNeb every 6 hours p.r.n., heparin 5000 units subcu every 12 hour, Lipitor 10 mg daily, metoprolol tartrate 25 mg twice a day, magnesium oxide 400 mg twice a day, oxycodone 5 mg every 6 hours p.r.n., Protonix 40 mg daily, Solu-Medrol 20 mg every 12 hours, Tylenol p.r.n., Ultram 50 mg every 8 hours p.r.n., Xanax 0.25 mg at bedtime p.r.n., Zofran p.r.n. basis. LABORATORY DATA: Shows hemoglobin 9.5, hematocrit 30.2, WBC 4.3, platelet count is 160. Sodium 135, potassium 4, chloride 97, bicarbonate 33, BUN 8, creatinine 0.4, glucose 176, calcium is 8, phosphorus is 3.3, AST is 22, ALT is 25, alkaline phosphatase is 84, albumin is 3. IMPRESSION AND PLAN: Adenocarcinoma of the lung with metastatic disease to the nodes. Also, metastatic disease to the ribs, latest metastasis formed in the right lower extremity with lytic lesion, chronic obstructive lung disease with some exacerbation. Spoke to the patient's daughter at the bedside. All the questions answered. Continue IV and inhaled bronchodilator. Gastric prophylaxis. lower extremities. Case discussed with Dr. Wolf. Early next week schedule for surgery of the right lower extremity to reinforce the area of lytic lesion. Thank you and we will follow with you. Judit Dent MD
[2017-11-12 06:51] LABS: GRAN # 7.88 (1.4-6.5); GRAN % 92.6 % (50.0-68.0); HEMOGLOBIN 9.2 g/dL (14.0-18.0); LYMPH # 0.4 (1.2-3.4); LYMPH % 5.2 % (22.0-35.0); MEAN CELL VOLUME 89.6 fl (80.0-105.0); MEAN CORPUSCULAR HEMOGLOBIN 28.9 pg (25.0-35.0); MEAN CORPUSCULAR HGB CONC 32.3 g/dl (31.0-37.0); MEAN PLATELET VOLUME 10.2 fl (7.0-11.0); MONO # 0.2 (0.1-0.6); MONO % 2.2 % (1.0-6.0); RBC 3.18 10^6/uL (3.5-6.1); RED CELL DISTRIBUTION WIDTH 15.2 % (11.5-14.5); WHITE BLOOD COUNT 8.5 10^3/ul (4.5-11.0)
[2017-11-12 06:58] LABS: PROTHROMBIN TIME 13.3 SECONDS (9.4-12.5)
[2017-11-12 06:59] LABS: INR 1.15 (0.93-1.08); PARTIAL THROMBOPLASTIN TIME 28.9 Seconds (25.1-36.5)
[2017-11-12 07:16] LABS: ALB/GLOB RATIO 0.9 (1.1-1.8); ALBUMIN 2.8 g/dL (3.0-4.8); ALT/SGPT 21 U/L (7-56); AST/SGOT 23 U/L (17-59); BLOOD UREA NITROGEN 8 mg/dL (7-21); CALCIUM 7.7 mg/dL (8.4-10.5); GFR NON-AFRICAN AMERICAN > 60
[2017-11-12] MEDS: Arformoterol 15 mcg/2 ml Inh Sol IH SCH ×2 (07:47→20:12)
[2017-11-12] MEDS: Acetylcysteine 20% Inhal Soln (4ml) IH SCH (07:49)
[2017-11-12] MEDS: MethylPREDNISolone 40 mg Vial IVP SCH (10:33)
[2017-11-12] MEDS: Magnesium Oxide 400 mg Tab UD PO SCH ×2 (10:33→17:34)
[2017-11-12] MEDS: Pantoprazole 40 mg EC Tab PO SCH (10:33)
[2017-11-12] MEDS ORDERED: MethylPREDNISolone 40 mg Vial IVP STA (15:38)
[2017-11-12] MEDS ORDERED: Cefepime 1gm in NS 100ml 1 GM/100 ML BAG IVPB ONE (15:44)
[2017-11-12] MEDS: Albuterol-Ipratrop 3 mg / 0.5 (3 ml) UD IH PRN (16:05)
--- NOTE | 2017-11-12 16:12 | PN ---
DATE: 11/12/2017 PREOPERATIVE REPORT SUBJECTIVE: A 72-year-old male. The patient is being prepared for surgery on his pathologic fracture, right tibia where he has 2 lesions, one is cortical breakthrough of the distal tibia 2 inches above the ankle and one in the junction of the middle proximal and third tibia on the medial thigh, which is causing pain, but has not broken the cortex. Plan into an intramedullary catrachito on Monday, 7:30 a.m., given 2 units of packed cells available because the hemoglobin is 9.2. Dr. Wolf will see him also and make sure he is cleared for surgical procedure on Monday. The patient was told the risk and benefits, benefit being that we could remove the cast and he will be to have less pain in that fractured right tibia from the pathologic fracture and he could undergo radiation therapy and chemotherapy as planned by Dr. Wolf with less pain. The family consents the surgery knowing that the risks of cardiac status, pulmonary difficulty and low hemoglobin and anemia, but they understand the risk of that. Dayne Fuller DO PATRICK
--- NOTE | 2017-11-12 16:33 | RAD ---
HISTORY: congestion COMPARISON: Comparison chest 10/25/2017 FINDINGS: No change right IJ MediPort with tip in the SVC LUNGS: Left upper lobe opacity consistent with a combination of atelectasis tumor and effusion seen to better advantage on prior PET-CT scan 11/03/2017 PLEURA: No significant pleural effusion identified, no pneumothorax apparent. CARDIOVASCULAR: Normal. OSSEOUS STRUCTURES: No significant abnormalities. VISUALIZED UPPER ABDOMEN: Normal. OTHER FINDINGS: None. IMPRESSION: Left upper lobe opacity consistent with a combination of atelectasis tumor and effusion seen to better advantage on prior PET-CT scan 11/03/2017
--- NOTE | 2017-11-12 16:41 | RAD ---
PROCEDURE: Right Knee Radiographs. HISTORY: pre op COMPARISON: None. FINDINGS: BONES: No evidence of acute displaced fracture nor dislocation. Note made of periosteal reaction changes along the proximal and mid margins of the right tibia and fibula. Rule out chronic osteomyelitis JOINTS: Normal. No osteoarthritis. JOINT EFFUSION: Suspect small suprapatellar joint effusion OTHER FINDINGS: Vascular calcifications are present IMPRESSION: No acute fractures. Suspect small suprapatellar joint effusion. . Rule out chronic osteomyelitis involving the proximal tibia and fibula.
[2017-11-12] MEDS: POLYETHYLENE GLYCOL 3350 17 GM/Dose PACKET PO SCH (17:34)
[2017-11-12] MEDS ORDERED: Potassium & Sodium Phosphate PO SCH (18:00)
[2017-11-12] MEDS ORDERED: MethylPREDNISolone 40 mg Vial IVP SCH (18:00)
--- NOTE | 2017-11-13 00:36 | PN ---
DATE: 11/11/2017 ONCOLOGY PROGRESS NOTE LOCATION: The patient is in room 372, bed 1. SUBJECTIVE: The patient is seen lying in bed, head at 45 degrees with mild cough, not significant sputum production. The patient complains that he is having some chest wall discomfort on coughing. No nausea, no vomiting, no diarrhea. The patient has been having some significant leg pain and Dr. Fuller had re-casted his leg with a soft cast and it is instructed as not to move it or remove it until he goes for the OR on Monday. PHYSICAL EXAMINATION: GENERAL: The patient is in not acute distress. VITAL SIGNS: Stable. T-max is 98.4, heart rate is 95, respirations 20, blood pressure is 107/46, pulse ox is 90% on 2 liters of oxygen. HEENT: Head is normocephalic and atraumatic. Conjunctivae are pale. Sclerae are anicteric. Temporal muscle wasting is noted. Examination of the oropharynx reveals poor dentition. Tongue is moist. No ulcerations or thrush are noted. NECK: Supple. There is no adenopathy. No jugular venous distention noted. LUNGS: Reveals decreased air entry in the left upper lobe. Breath sounds are distant. HEART: Reveals PMI to be in the fifth intercostal space, inside the midclavicular line. S1 and S2 are normal. No gallop or murmur is heard. ABDOMEN: Soft and nontender. Liver and spleen are not palpable. NEUROLOGIC: Reveals higher functions to be normal. No focal deficits are noted. MEDICATIONS: Reviewed. He is on Mucomyst inhaled twice a day; Ambien 5 mg at bedtime; Brovana inhaled twice a day; calcium carbonate 600 mg twice daily; doxycycline 100 mg twice daily; DuoNeb every 6 hours; heparin 5000 units subcu every 12 hours; Lipitor 10 mg daily; metoprolol tartrate 25 mg p.o. b.i.d.; magnesium oxide 400 mg twice a day; oxycodone 5 mg every 6 hours p.r.n. for pain in his legs, where he has two separate sites of fracture, which is going to be repaired on Monday; Protonix 40 mg daily; Solu-Medrol 20 mg IV every 12 hours; Tylenol p.r.n.; Ultram 500 mg every 8 hours p.r.n. for mild pain; Xanax 0.25 mg b.i.d. and at bedtime; and Zofran p.r.n. for nausea. LABORATORY DATA: Reveals hemoglobin of 9.5, hematocrit 32, white count is 4.3 with a platelet count of 160,000. Sodium is 135, K is 4, chloride is 97, bicarbonate is 33, BUN is 8, creatinine is 0.5, and blood sugar is 176. Calcium is 8, phosphorus is 3.3. AST is 22, ALT is 25, alkaline phosphatase is 84, albumin is 3. ASSESSMENT, NOTES: The patient has metastatic stage IV poorly differentiated adenocarcinoma of the lung with extensive metastasis as evidenced on the PET/CT scan involving the supraclavicular nodes and axillary nodes, widespread bony metastases and main disease in the left mainstem affecting the left upper lobe bronchus or just getting variation for the obstructive phenomena. The patient has completed the radiation to the left mainstem and is going to start radiation and continue radiation for the lytic lesion in the right tibia, which has picked up when he came into the hospital after a fall, complaining of increasing pain of his leg. PLAN: I had a detailed discussion with the patient. I spoke in detail to his two daughters and his as evidenced on the PET/CT, the patient has metastatic disease to the ribs and latest metastasis in the right lower extremity with lytic lesion. The patient has chronic obstructive lung disease with exacerbation, with obstruction of the left upper lobe. Our plan is to initiate systemic chemotherapy. He already has had his port placed on Monday. We are going to initiate chemotherapy on Monday with carboplatin, pemetrexed, and add Keytruda after the second cycle. Waiting for some of the other parameters to come back including and epidermal growth factor receptor mutational status. The patient is going to continue with gastrointestinal prophylaxis and inhaled bronchodilators and plan is for correctively doing surgery for his right lower extremity. I spoke to Dr. Dayne Fuller who is going to plan on placing a pin. The patient has been seen by Pulmonology, Dr. Dent; going to be seen Dr. Pro to give him cardiac clearance as well for the planned procedure on Monday. Plan is to give him systemic chemotherapy on Monday. Hopefully, after the pinning, the patient will be able to go into rehab to continue ambulation. Currently, the patient is having significant pain and because the fragments can move, he has not been able to at least get up and put any weightbearing on his feet. Routine post-exam instructions have been given to the patient. Time spent with the patient greater than 80 minutes, correlating all the data, giving information to the patient and family. up-to-date and given this to the patient, his daughter and educated about the stage of disease and what our plans currently on. The patient is going to get steroids, folic acid and B12 in preparation for the chemotherapy, which will be consisting of carboplatin and pemetrexed. Routine post-exam instructions have been given to the patient. Despite the extensive nature of disease several options as far as systemic chemotherapy is concerned along with immunotherapy as well. I gave them detail of national presentation at the [employer] [place] [employer] Meeting in 10/2017. Artem Wolf MD
--- NOTE | 2017-11-13 06:59 | CP.PCM.PN ---
Subjective - Date & Time of Evaluation Date of Evaluation: 11/13/17 Time of Evaluation: 06:30 - Subjective Subjective: No distress, awake,lying in bed,denies chest pain,denies shortness of breath Reason for consultation and follow up: Cardiac evaluation and risk stratification for possible ankle surgery (lytic lesion in distal tibia) Seen and examined by me and Dr. Pro Objective - Vital Signs/Intake and Output Vital Signs (last 24 hours): Temp Pulse Resp BP Pulse Ox 98.2 F 77 22 125/58 L 100 11/12/17 16:28 11/12/17 16:28 11/12/17 16:28 11/12/17 16:28 11/12/17 16:28 Intake and Output: 11/12/17 11/13/17 18:59 06:59 Intake Total 380 Output Total 1100 Balance -720 - Medications Medications: Current Medications Acetaminophen (Tylenol 325mg Tab) 650 mg PO Q6H PRN PRN Reason: Fever >100.4 F Last Admin: 11/12/17 15:25 Dose: 650 mg Acetylcysteine (Acetylcysteine 20%) 3 ml IH [id number] [facility] Last Admin: 11/12/17 07:49 Dose: Not Given Albuterol/Ipratropium (Duoneb 3 Mg/0.5 Mg (3 Ml) Ud) 3 ml IH Q6H PRN PRN Reason: Shortness of Breath Last Admin: 11/12/17 16:05 Dose: 3 ml Alprazolam (Xanax) 0.25 mg PO HS PRN; Protocol PRN Reason: Anxiety Stop: 11/17/17 20:01 Last Admin: 11/11/17 21:29 Dose: 0.25 mg Alprazolam (Xanax) 0.25 mg PO BID PRN; Protocol PRN Reason: Anxiety Stop: 11/18/17 15:38 Last Admin: 11/12/17 15:25 Dose: 0.25 mg Arformoterol Tartrate (Brovana) 15 mcg IH [id number] [facility] Last Admin: 11/12/17 20:12 Dose: 15 mcg Atorvastatin Calcium (Lipitor) 10 mg PO DIN [facility] Last Admin: 11/12/17 17:34 Dose: 10 mg Calcium Carbonate (Caltrate) 600 mg PO BID [facility] Last Admin: 11/12/17 17:33 Dose: 600 mg Dexamethasone (Decadron) 8 mg PO BIDPC [facility] Stop: 11/16/17 10:01 Doxycycline Hyclate (Doryx) 100 mg PO Q12 [facility] PRN Reason: Protocol Last Admin: 11/12/17 10:30 Dose: 100 mg Folic Acid (Folic Acid) 1 mg PO BID [facility] Heparin Sodium (Porcine) (Heparin) 5,000 units SC Q12H [facility] PRN Reason: Protocol Last Admin: 11/12/17 11:00 Dose: 5,000 units Cefepime HCl (Maxipime 1gm) 1 gm in 100 mls @ 100 mls/hr IVPB DAILY [facility] PRN Reason: Protocol Methylprednisolone (Solu-Medrol) 40 mg IVP Q6 [facility] Metoprolol Tartrate (Lopressor) 25 mg PO BRKDIN [facility] Last Admin: 11/12/17 08:30 Dose: 25 mg Ondansetron HCl (Zofran Inj) 4 mg IVP Q6H PRN PRN Reason: Nausea/Vomiting Pantoprazole Sodium (Protonix Ec Tab) 40 mg PO DAILY [facility] Last Admin: 11/12/17 10:33 Dose: 40 mg Polyethylene Glycol (Miralax) 17 gm PO BID [facility] Last Admin: 11/12/17 17:34 Dose: 17 gm Potassium Phos/Sodium Phos (Neutra-Phos) 1 pkt PO TID [facility] Stop: 11/13/17 23:00 Tramadol HCl (Ultram) 50 mg PO Q8 PRN PRN Reason: Pain, moderate (4-7) Last Admin: 11/10/17 14:17 Dose: 50 mg Zolpidem Tartrate (Ambien) 5 mg PO HS PRN; Protocol PRN Reason: Insomnia Last Admin: 11/09/17 22:28 Dose: 5 mg - Labs Labs: 11/12/17 06:16 11/12/17 06:16 PT 13.3 SECONDS (9.4-12.5) H 11/12/17 06:16 INR 1.15 (0.93-1.08) H 11/12/17 06:16 APTT 28.9 Seconds (25.1-36.5) 11/12/17 06:16 - Constitutional Appears: No Acute Distress - Head Exam Head Exam: NORMOCEPHALIC - Eye Exam Eye Exam: Normal appearance - ENT Exam ENT Exam: Mucous Membranes Moist - Respiratory Exam Respiratory Exam: Clear to Ausculation Bilateral, NORMAL BREATHING PATTERN - Cardiovascular Exam Cardiovascular Exam: +S1, +S2 - GI/Abdominal Exam GI & Abdominal Exam: Soft, Normal Bowel Sounds - Extremities Exam Additional comments: right leg with amie wrap - Neurological Exam Neurological Exam: Alert, Awake, Oriented x3 - Psychiatric Exam Psychiatric exam: Normal Affect, Normal Mood - Skin Skin Exam: Intact, Normal Color, Warm Assessment and Plan - Assessment and Plan (Free Text) Assessment: A 72 year old male who came in to the ER due to ankle pain. Foot and ankle x- rays done and showed lytic lesion in distal tibia.For possible surgery to prevent fracture. Consult was called to clear patient for surgery. Recently diagnosed of lung adenocarcinoma poorly differentiated and getting chemotherapy. History of smoking, COPD.Had venous port right upper chest for chemotherapy. Plan: Cleared from cardiac standpoint for ankle surgical procedure Moderate risk, surgery scheduled for Monday No evidence of ischemia or heart failure Stable heart rate and blood pressure Low dose betablocker to prevent Afib Continue current treatment Continue current medications Nutritional support Will follow up Plan and treatment discussed with Dr. Pro
--- NOTE | 2017-11-13 07:16 | CP.PCM.CON ---
<Arianna Yeh - Last Filed: 11/13/17 12:00> History of Present Illness - History of Present Illness History of Present Illness: GI Consult Note for Benny Avendano PGY2 This is a 72yo male with past medical history of lung adenocarcinoma w/ mets to bone, COPD, internal hemorrhoids who was admitted for R distal tibia lytic lesion. Patient is planned to go to OR tomorrow for the fracture. Patient was noted to have bright red blood per rectum yesterday after fleet enema. Patient states this happens from time to time because he has hemorrhoids, but does not report any other episode of bleeding. He states he received the feel enema because he had been constipated for about a day and had a BM after the enema. Hgb remained stable. Patient also had a CT A/P in 10/20/2017 which showed normal bowel. He denies chest pain, shortness of breath, nausea/vomiting/diarrhea, fever/chills, numbness/tingling, dysuria or hematuria. Past medical history: lung adenocarcinoma w/ mets to bone, COPD, internal hemorrhoids Past surgical history: lung biopsy, prostate biopsy, thoracentesis Medications: Reviewed as per MAR Allergies: ASA Social history: Former smoker, former alcohol use, denies drug use. Review of Systems - Review of Systems All systems: reviewed and no additional remarkable complaints except Review of Systems: 12 point ROS reviewed as per HPI and is otherwise negative. Past Patient History - Infectious Disease Hx of Infectious Diseases: None - Past Social History Smoking Status: Former Smoker - CARDIAC Hx Cardiac Disorders: No - PULMONARY Hx Respiratory Disorders: No - NEUROLOGICAL Hx Neurological Disorder: No - HEENT Hx HEENT Problems: No - RENAL Hx Chronic Kidney Disease: No - ENDOCRINE/METABOLIC Hx Endocrine Disorders: No - HEMATOLOGICAL/ONCOLOGICAL Hx Blood Disorders: Yes Hx Cancer: Yes (prostate) Other/Comment: radiation - INTEGUMENTARY Hx Dermatological Problems: No - MUSCULOSKELETAL/RHEUMATOLOGICAL Hx Musculoskeletal Disorders: No Hx Falls: Yes (mechanical fall) - GASTROINTESTINAL Hx Gastrointestinal Disorders: No - GENITOURINARY/GYNECOLOGICAL Hx Genitourinary Disorders: Yes Hx Prostate Problems: Yes - PSYCHIATRIC Hx Psychophysiologic Disorder: No Hx Substance Use: No - SURGICAL HISTORY Hx Surgeries: No - ANESTHESIA Hx Anesthesia Reactions: No Hx Malignant Hyperthermia: No Meds Home Medications: Home Medication List Medication Instructions Recorded Confirmed Type Acetylcysteine 20% 3 ml IH [id number] vial 11/15/17 Rx Albuterol/Ipratropium [Duoneb 3 3 ml IH Q6H PRN neb 11/15/17 Rx mg/0.5 mg (3 ml) UD] Arformoterol [Brovana] 15 mcg IH [id number] neb 11/15/17 Rx Atorvastatin [Lipitor] 10 mg PO DIN tab 11/15/17 Rx Calcium Carbonate [Caltrate] 600 mg PO BID tab 11/15/17 Rx Enoxaparin [Lovenox] 30 mg SC DAILY syr 11/15/17 Rx Folic Acid 1 mg PO BID tab 11/15/17 Rx Nystatin [Nystatin Oral Susp] 5 ml PO QID udc 11/15/17 Rx Pantoprazole [Protonix EC Tab] 40 mg PO DAILY ect 11/15/17 Rx Phosphorus/Potassium/Sodium 1 pkt PO TID packet 11/15/17 Rx [Neutra-Phos] Polyethylene Glycol 3350 [Miralax] 17 gm PO BID packet 11/15/17 Rx Zolpidem [Ambien] 5 mg PO HS PRN tab 11/15/17 Rx Allergies/Adverse Reactions: Allergies Allergy/AdvReac Type Severity Reaction Status Date / Time aspirin AdvReac Intermediate NAUSEA Verified 11/06/17 11:48 - Medications Medications: Current Medications Acetaminophen (Tylenol 325mg Tab) 650 mg PO Q6H PRN PRN Reason: Fever >100.4 F Last Admin: 11/12/17 15:25 Dose: 650 mg Acetylcysteine (Acetylcysteine 20%) 3 ml IH [id number] [facility] Last Admin: 11/12/17 07:49 Dose: Not Given Albuterol/Ipratropium (Duoneb 3 Mg/0.5 Mg (3 Ml) Ud) 3 ml IH Q6H PRN PRN Reason: Shortness of Breath Last Admin: 11/12/17 16:05 Dose: 3 ml Alprazolam (Xanax) 0.25 mg PO HS PRN; Protocol PRN Reason: Anxiety Stop: 11/17/17 20:01 Last Admin: 11/11/17 21:29 Dose: 0.25 mg Alprazolam (Xanax) 0.25 mg PO BID PRN; Protocol PRN Reason: Anxiety Stop: 11/18/17 15:38 Last Admin: 11/12/17 15:25 Dose: 0.25 mg Arformoterol Tartrate (Brovana) 15 mcg IH [id number] [facility] Last Admin: 11/12/17 20:12 Dose: 15 mcg Atorvastatin Calcium (Lipitor) 10 mg PO DIN [facility] Last Admin: 11/12/17 17:34 Dose: 10 mg Calcium Carbonate (Caltrate) 600 mg PO BID [facility] Last Admin: 11/12/17 17:33 Dose: 600 mg Dexamethasone (Decadron) 8 mg PO BIDPC [facility] Stop: 11/16/17 10:01 Doxycycline Hyclate (Doryx) 100 mg PO Q12 [facility] PRN Reason: Protocol Last Admin: 11/12/17 10:30 Dose: 100 mg Folic Acid (Folic Acid) 1 mg PO BID [facility] Heparin Sodium (Porcine) (Heparin) 5,000 units SC Q12H [facility] PRN Reason: Protocol Last Admin: 11/12/17 11:00 Dose: 5,000 units Cefepime HCl (Maxipime 1gm) 1 gm in 100 mls @ 100 mls/hr IVPB DAILY [facility] PRN Reason: Protocol Methylprednisolone (Solu-Medrol) 40 mg IVP Q6 [facility] Metoprolol Tartrate (Lopressor) 25 mg PO BRKDIN [facility] Last Admin: 11/12/17 08:30 Dose: 25 mg Ondansetron HCl (Zofran Inj) 4 mg IVP Q6H PRN PRN Reason: Nausea/Vomiting Pantoprazole Sodium (Protonix Ec Tab) 40 mg PO DAILY [facility] Last Admin: 11/12/17 10:33 Dose: 40 mg Polyethylene Glycol (Miralax) 17 gm PO BID [facility] Last Admin: 11/12/17 17:34 Dose: 17 gm Potassium Phos/Sodium Phos (Neutra-Phos) 1 pkt PO TID [facility] Stop: 11/13/17 23:00 Tramadol HCl (Ultram) 50 mg PO Q8 PRN PRN Reason: Pain, moderate (4-7) Last Admin: 11/10/17 14:17 Dose: 50 mg Zolpidem Tartrate (Ambien) 5 mg PO HS PRN; Protocol PRN Reason: Insomnia Last Admin: 11/09/17 22:28 Dose: 5 mg Physical Exam - Constitutional Appears: No Acute Distress, Chronically Ill - Head Exam Head Exam: ATRAUMATIC, NORMAL INSPECTION, NORMOCEPHALIC - Eye Exam Eye Exam: Normal appearance, PERRL Pupil Exam: NORMAL ACCOMODATION - ENT Exam ENT Exam: Mucous Membranes Moist - Respiratory Exam Respiratory Exam: Clear to Auscultation Bilateral, NORMAL BREATHING PATTERN. absent: Rales, Rhonchi, Wheezes - Cardiovascular Exam Cardiovascular Exam: REGULAR RHYTHM, +S1, +S2. absent: Gallop, Rubs, Systolic Murmur - GI/Abdominal Exam GI & Abdominal Exam: Normal Bowel Sounds, Soft. absent: Mass, Rebound, Rigid, Tenderness - Rectal Exam Rectal Exam: NORMAL INSPECTION. absent: Black Stool, Bloody Stool, Hemorrhoids , Fecal Impaction - Extremities Exam Additional comments: R foot in cast - Neurological Exam Neurological exam: Alert, CN II-XII Intact, Oriented x3 - Skin Skin Exam: Dry, Warm Results - Vital Signs Recent Vital Signs: Last Vital Signs Temp 98.2 F 11/12/17 16:28 Pulse 77 11/12/17 16:28 Resp 22 11/12/17 16:28 BP 125/58 L 11/12/17 16:28 Pulse Ox 100 11/12/17 16:28 - Labs Result Diagrams: 11/13/17 06:40 11/13/17 06:40 Labs: Laboratory Results - last 24 hr 11/12/17 06:16 Sodium 138 Potassium 3.7 Chloride 100 Carbon Dioxide 32 Anion Gap 9 L BUN 8 Creatinine 0.3 L Est GFR ( Amer) > 60 Est GFR (Non-Af Amer) > 60 Random Glucose 140 H Calcium 7.7 L Phosphorus 1.9 L Magnesium 2.1 Total Bilirubin 0.2 AST 23 ALT 21 Alkaline Phosphatase 80 Total Protein 5.9 Albumin 2.8 L Globulin 3.1 Albumin/Globulin Ratio 0.9 L Assessment & Plan - Assessment and Plan (Free Text) Assessment: This is a 72yo male with past medical history of lung adenocarcinoma w/ mets to bone, COPD, internal hemorrhoids who was admitted for 1. R distal tibia lytic lesion 2. Bright red blood per rectum - most likely secondary to internal hemorrhoids 3. lung adenocarcinoma w/ mets to bone - plan is to start chemotherapy this admission 4. COPD Plan: Avoid enema in this patient. Will get abdominal XR for constipation. Continue Miralax. If constipation continues, recommend Relistor. Patient will go to OR tomorrow with ortho. Oncology is planning to start chemotherapy. Hgb has been stable. Will continue to monitor H/H. No mass or bleeding found on rectal exam. Patient will need to be placed on anticoagulation such as lovenox because he is at high risk for DVT/PE given the history of cancer as well as a orthopedic. procedure. Discussed the case with both oncology and orthopedist. Case seen, discussed and reviewed with Dr. Levine. Benny Yeh PGY2 - Date & Time Date: 11/13/17 Time: 12:14 <Sam Levine V - Last Filed: 12/24/17 16:52> Meds - Medications Medications: Current Medications Acetaminophen (Tylenol 325mg Tab) 650 mg PO Q6H PRN PRN Reason: Fever >100.4 F Last Admin: 11/12/17 15:25 Dose: 650 mg Acetylcysteine (Acetylcysteine 20%) 3 ml IH [id number] [facility] Last Admin: 11/13/17 20:23 Dose: 3 ml Albuterol/Ipratropium (Duoneb 3 Mg/0.5 Mg (3 Ml) Ud) 3 ml IH Q6H PRN PRN Reason: Shortness of Breath Last Admin: 11/12/17 16:05 Dose: 3 ml Alprazolam (Xanax) 0.25 mg PO HS PRN; Protocol PRN Reason: Anxiety Stop: 11/17/17 20:01 Last Admin: 11/11/17 21:29 Dose: 0.25 mg Alprazolam (Xanax) 0.25 mg PO BID PRN; Protocol PRN Reason: Anxiety Stop: 11/18/17 15:38 Last Admin: 11/13/17 18:01 Dose: 0.25 mg Arformoterol Tartrate (Brovana) 15 mcg IH [id number] [facility] Last Admin: 11/13/17 20:20 Dose: 15 mcg Atorvastatin Calcium (Lipitor) 10 mg PO DIN [facility] Last Admin: 11/13/17 18:01 Dose: 10 mg Calcium Carbonate (Caltrate) 600 mg PO BID [facility] Last Admin: 11/13/17 18:01 Dose: 600 mg Dexamethasone (Decadron) 8 mg PO BIDPC [facility] Stop: 11/16/17 10:01 Doxycycline Hyclate (Doryx) 100 mg PO Q12 [facility] PRN Reason: Protocol Last Admin: 11/12/17 10:30 Dose: 100 mg Folic Acid (Folic Acid) 1 mg PO BID [facility] Heparin Sodium (Porcine) (Heparin) 5,000 units SC Q12H [facility] PRN Reason: Protocol Last Admin: 11/12/17 11:00 Dose: 5,000 units Cefepime HCl (Maxipime 1gm) 1 gm in 100 mls @ 100 mls/hr IVPB DAILY [facility] PRN Reason: Protocol Methylprednisolone (Solu-Medrol) 40 mg IVP Q12 [facility] Metoprolol Tartrate (Lopressor) 25 mg PO BRKDIN [facility] Last Admin: 11/12/17 08:30 Dose: 25 mg Ondansetron HCl (Zofran Inj) 4 mg IVP Q6H PRN PRN Reason: Nausea/Vomiting Pantoprazole Sodium (Protonix Ec Tab) 40 mg PO DAILY [facility] Last Admin: 11/12/17 10:33 Dose: 40 mg Polyethylene Glycol (Miralax) 17 gm PO BID [facility] Last Admin: 11/12/17 17:34 Dose: 17 gm Potassium Phos/Sodium Phos (Neutra-Phos) 1 pkt PO TID [facility] Stop: 11/13/17 23:00 Tramadol HCl (Ultram) 50 mg PO Q8 PRN PRN Reason: Pain, moderate (4-7) Last Admin: 11/10/17 14:17 Dose: 50 mg Zolpidem Tartrate (Ambien) 5 mg PO HS PRN; Protocol PRN Reason: Insomnia Last Admin: 11/09/17 22:28 Dose: 5 mg Results - Vital Signs Recent Vital Signs: Last Vital Signs Temp 97.5 F L 11/13/17 08:38 Pulse 73 11/13/17 08:38 Resp 22 11/13/17 08:38 BP 128/63 11/13/17 08:38 Pulse Ox 94 L 11/13/17 08:38 - Labs Result Diagrams: 11/15/17 12:30 11/15/17 06:20 Labs: Laboratory Results - last 24 hr 11/13/17 11/13/17 11/13/17 06:40 06:40 06:40 WBC 6.2 D RBC 3.25 L Hgb 9.3 L Hct 29.1 L MCV 89.5 MCH 28.6 MCHC 32.0 RDW 15.4 H Plt Count 249 MPV 9.9 Gran % 90.9 H Lymph % (Auto) 6.5 L Antelope % (Auto) 2.6 Eos % (Auto) 0.0 L Baso % (Auto) 0.0 Gran # 5.62 Lymph # (Auto) 0.4 L Antelope # (Auto) 0.2 Eos # (Auto) 0.0 Baso # (Auto) 0.00 Sodium 139 Potassium 3.8 Chloride 101 Carbon Dioxide 32 Anion Gap 9 L BUN 12 Creatinine 0.4 L Est GFR ( Amer) > 60 Est GFR (Non-Af Amer) > 60 Random Glucose 143 H Calcium 7.7 L Phosphorus 1.9 L Magnesium 2.3 H Total Bilirubin 0.2 AST 27 ALT 31 Alkaline Phosphatase 87 Total Protein 6.0 Albumin 2.8 L Globulin 3.1 Albumin/Globulin Ratio 0.9 L Blood Type O POSITIVE Blood Type Confirm Antibody Screen Negative Crossmatch See Detail BBK History Checked No verified bt 11/13/17 08:55 WBC RBC Hgb Hct MCV MCH MCHC RDW Plt Count MPV Gran % Lymph % (Auto) Antelope % (Auto) Eos % (Auto) Baso % (Auto) Gran # Lymph # (Auto) Antelope # (Auto) Eos # (Auto) Baso # (Auto) Sodium Potassium Chloride Carbon Dioxide Anion Gap BUN Creatinine Est GFR ( Amer) Est GFR (Non-Af Amer) Random Glucose Calcium Phosphorus Magnesium Total Bilirubin AST ALT Alkaline Phosphatase Total Protein Albumin Globulin Albumin/Globulin Ratio Blood Type Blood Type Confirm O POSITIVE Antibody Screen Crossmatch BBK History Checked Attending/Attestation - Attestation I have personally seen and examined this patient.: Yes I have fully participated in the care of the patient.: Yes I have reviewed all pertinent clinical information: Yes Notes (Text): This is an addendum to GI consult report dictated by the Ink Maker. The patient was seen and examined earlier. Medical records, lab studies, imagings were reviewed. Last 24 hours events reviewed. Agreed with the above treatment plan as outlined in Ink Maker 's notes the with the addition of the following Patient did have a small amount of bleeding per rectum after enema. Patient was constipated prior to enema. On examination abdomen soft, no tenderness. Plan for ORIF fracture. Discussed with orthopedics and . 11/13/17 21:01 12/24/17 16:51
[2017-11-13] MEDS: Arformoterol 15 mcg/2 ml Inh Sol IH SCH ×2 (07:28→20:20)
[2017-11-13] MEDS: Acetylcysteine 20% Inhal Soln (4ml) IH SCH ×2 (07:28→20:23)
[2017-11-13 07:34] LABS: GRAN # 5.62 (1.4-6.5); GRAN % 90.9 % (50.0-68.0); HEMOGLOBIN 9.3 g/dL (14.0-18.0); LYMPH # 0.4 (1.2-3.4); LYMPH % 6.5 % (22.0-35.0); MEAN CELL VOLUME 89.5 fl (80.0-105.0); MEAN CORPUSCULAR HEMOGLOBIN 28.6 pg (25.0-35.0); MEAN PLATELET VOLUME 9.9 fl (7.0-11.0); MONO # 0.2 (0.1-0.6); MONO % 2.6 % (1.0-6.0); RBC 3.25 10^6/uL (3.5-6.1); RED CELL DISTRIBUTION WIDTH 15.4 % (11.5-14.5); WHITE BLOOD COUNT 6.2 10^3/ul (4.5-11.0)
[2017-11-13 08:02] LABS: ALB/GLOB RATIO 0.9 (1.1-1.8); ALBUMIN 2.8 g/dL (3.0-4.8); ALT/SGPT 31 U/L (7-56); AST/SGOT 27 U/L (17-59); BLOOD UREA NITROGEN 12 mg/dL (7-21); CALCIUM 7.7 mg/dL (8.4-10.5); GFR NON-AFRICAN AMERICAN > 60
--- NOTE | 2017-11-13 08:36 | CP.PCM.PN ---
Subjective - Date & Time of Evaluation Date of Evaluation: 11/13/17 Time of Evaluation: 08:30 - Subjective Subjective: Mr Monson has stage IV lung cancer with a pathologic lesion at right tibia. He is scheduled for orthopedic surgery tomorrow. As such, we will be holding his radiation. he has had two radiation treatments so far. Objective - Vital Signs/Intake and Output Vital Signs (last 24 hours): Temp Pulse Resp BP Pulse Ox 98.2 F 77 22 125/58 L 100 11/12/17 16:28 11/12/17 16:28 11/12/17 16:28 11/12/17 16:28 11/12/17 16:28 Intake and Output: 11/13/17 11/13/17 06:59 18:59 Intake Total 380 Output Total 1100 Balance -720 - Medications Medications: Current Medications Acetaminophen (Tylenol 325mg Tab) 650 mg PO Q6H PRN PRN Reason: Fever >100.4 F Last Admin: 11/12/17 15:25 Dose: 650 mg Acetylcysteine (Acetylcysteine 20%) 3 ml IH [id number] [facility] Last Admin: 11/13/17 07:28 Dose: 3 ml Albuterol/Ipratropium (Duoneb 3 Mg/0.5 Mg (3 Ml) Ud) 3 ml IH Q6H PRN PRN Reason: Shortness of Breath Last Admin: 11/12/17 16:05 Dose: 3 ml Alprazolam (Xanax) 0.25 mg PO HS PRN; Protocol PRN Reason: Anxiety Stop: 11/17/17 20:01 Last Admin: 11/11/17 21:29 Dose: 0.25 mg Alprazolam (Xanax) 0.25 mg PO BID PRN; Protocol PRN Reason: Anxiety Stop: 11/18/17 15:38 Last Admin: 11/12/17 15:25 Dose: 0.25 mg Arformoterol Tartrate (Brovana) 15 mcg IH [id number] [facility] Last Admin: 11/13/17 07:28 Dose: 15 mcg Atorvastatin Calcium (Lipitor) 10 mg PO DIN [facility] Last Admin: 11/12/17 17:34 Dose: 10 mg Calcium Carbonate (Caltrate) 600 mg PO BID [facility] Last Admin: 11/12/17 17:33 Dose: 600 mg Dexamethasone (Decadron) 8 mg PO BIDPC [facility] Stop: 11/16/17 10:01 Doxycycline Hyclate (Doryx) 100 mg PO Q12 [facility] PRN Reason: Protocol Last Admin: 11/12/17 10:30 Dose: 100 mg Folic Acid (Folic Acid) 1 mg PO BID [facility] Heparin Sodium (Porcine) (Heparin) 5,000 units SC Q12H [facility] PRN Reason: Protocol Last Admin: 11/12/17 11:00 Dose: 5,000 units Cefepime HCl (Maxipime 1gm) 1 gm in 100 mls @ 100 mls/hr IVPB DAILY [facility] PRN Reason: Protocol Methylprednisolone (Solu-Medrol) 40 mg IVP Q6 [facility] Metoprolol Tartrate (Lopressor) 25 mg PO BRKDIN [facility] Last Admin: 11/12/17 08:30 Dose: 25 mg Ondansetron HCl (Zofran Inj) 4 mg IVP Q6H PRN PRN Reason: Nausea/Vomiting Pantoprazole Sodium (Protonix Ec Tab) 40 mg PO DAILY [facility] Last Admin: 11/12/17 10:33 Dose: 40 mg Polyethylene Glycol (Miralax) 17 gm PO BID [facility] Last Admin: 11/12/17 17:34 Dose: 17 gm Potassium Phos/Sodium Phos (Neutra-Phos) 1 pkt PO TID [facility] Stop: 11/13/17 23:00 Tramadol HCl (Ultram) 50 mg PO Q8 PRN PRN Reason: Pain, moderate (4-7) Last Admin: 11/10/17 14:17 Dose: 50 mg Zolpidem Tartrate (Ambien) 5 mg PO HS PRN; Protocol PRN Reason: Insomnia Last Admin: 11/09/17 22:28 Dose: 5 mg - Labs Labs: 11/13/17 06:40 11/13/17 06:40 PT 13.3 SECONDS (9.4-12.5) H 11/12/17 06:16 INR 1.15 (0.93-1.08) H 11/12/17 06:16 APTT 28.9 Seconds (25.1-36.5) 11/12/17 06:16
--- NOTE | 2017-11-13 09:21 | PN ---
DATE: 11/12/2017 REASON FOR CONSULTATION AND FOLLOWUP: Preop evaluation, risk stratification for possible ankle surgery, lytic lesion in the distal tibia. SUBJECTIVE: Patient denies any chest pain, shortness of breath or any palpitation. PHYSICAL EXAMINATION: GENERAL: Not in apparent distress. VITAL SIGNS: Temperature afebrile, heart rate 83, blood pressure 112/61. HEENT: PERRLA. Extraocular muscles intact. NECK: Supple. No carotid bruits or thyromegaly. CHEST: Clear to auscultation. HEART: S1 and S2. Regular. ABDOMEN: Soft. EXTREMITIES: Clubbing and cyanosis negative. LABORATORY DATA: Blood workup as follows. WBC 8.5, hemoglobin 9.2, hematocrit 28.5, platelet count 205. Chemistry shows sodium 130, potassium , chloride 100, carbon dioxide 32, anion gap of 9, BUN 8, creatinine 0.3. Total protein , albumin 2.8, gusgoya-zr-nqeujasc ratio is 0.9. IMPRESSION: A 72-year-old male recently diagnosed with lung carcinoma, admitted with a lytic lesion, close walking to straighten his ankle, possible sprain and impending fracture with lytic lesion. PLAN: He is scheduled for OR tomorrow. Multiple metastasis to the bone. Recommend the patient is cleared to go for surgery, no absolute contraindication to moderate risk. The underlying comorbidity discussed with the patient, discussed with the patient's family, discussed with Dr. Fuller. In the interim, continue DVT prophylaxis, continue beta-sarah. support, started on Ensure because of the protein calorie malnutrition, because the patient is not eating. Albumin is 2.8 but is not present on admission. We will follow with you. The patient's echo 2 weeks ago shows preserved LV function, trace mitral regurgitation, mild tricuspid regurgitation, LV systolic pressure 33, calculated ejection fraction 50%. Phosphorus is low. We will supplement phosphate. Judit Pro MD
--- NOTE | 2017-11-13 09:23 | PN ---
DATE: 11/12/2017 ONCOLOGY PROGRESS NOTE LOCATION: The patient is in room 372, bed 1. SUBJECTIVE: The patient is seen lying in bed, head at 45 degrees. He has mild cough. The patient feels that he is a little bit more short of breath today than he was yesterday. Not much of sputum production. The patient currently did not get his Mucomyst inhalation this morning at 08:30, as he admits that apparently he had refused it at that time when the respiratory therapist had come. Denies any history of nausea or vomiting. No diarrhea. Complaining of right-sided chest pain and coughing. The patient denies any history of fevers or chills. PHYSICAL EXAMINATION: GENERAL: The patient definitely is slightly short of breath, but in no acute distress. The patient is lying in bed, head at 45 degrees. VITAL SIGNS: Stable as stated on the chart. T-max is 98.2, pulse rate is 77, blood pressure is 127/58, respirations 22, O2 sat is 100% on 2 L of nasal cannula. HEENT: The patient's head is normocephalic, atraumatic. Conjunctivae pale. Sclerae are anicteric. Temporal muscle wasting is noted. Examination of the oropharynx reveals poor dentition. Tongue is moist. No ulcerations. No thrush is noted. No other lesions are noted. NECK: Supple. There is no adenopathy. No jugular venous distention noted. LUNGS: With decreased breath sounds in the left lung upper lobe, specifically posteriorly over the scapular region. Rest of the lungs reveals harsh breath sounds. HEART: Reveals PMI to be in the fifth intercostal space inside the midclavicular line. S1 and S2 are normal. No gallop or murmur is heard. ABDOMEN: Soft, nontender. Liver and spleen are not palpable. No rebound, rigidity or guarding is noted. NEUROLOGIC: Reveals higher functions to be normal. No focal deficits are noted. EXTREMITIES: Reveals the patient to have a fracture with associated pain and his right leg is in a cast. There are 2 areas that have lytic lesion in the upper tibia and a more prominent fracture in the lower end of the tibia, just above the ankle, patient with pinning for the same. The patient has a soft cast on his leg for now, which is going to be left in place until on Monday. MEDICATIONS: The patient's medications were reviewed. He is on Mucomyst inhaled twice a day, Ambien 5 mg at bedtime, Brovana inhaled twice a day, calcium carbonate 600 mg twice a day, doxycycline 100 mg twice a day, DuoNeb every 6 hours, heparin 5000 units subcu every 12 hours, Lipitor 10 mg daily, metoprolol 25 mg b.i.d., magnesium oxide 400 mg b.i.d., oxycodone 5 mg every 6 hours as needed for his fracture pain, Protonix 40 mg daily, Solu-Medrol is on 20 mg IV every 12 hours, Tylenol p.r.n., Ultram 50 mg every 8 hours p.r.n., Xanax 0.25 mg b.i.d. and at bedtime, and Zofran p.r.n. ASSESSMENT NOTES AND PLAN: The patient's lab data was reviewed, they are unchanged. The patient's chest x-ray was reviewed that was done this afternoon, shows atelectasis in the left upper lobe with no air entry to the left upper lobe. This was evident before, but no new infiltrates are seen. There is no evidence of congestion in the lower lung [place]. Discussed in detail with the patient, his family and his 2 daughters and who were present. Plan was to start or initiate systemic chemotherapy with carboplatin and pemetrexed in the morning depending on how the patient feels. The patient's steroid was increased. Infectious Disease has seen him. The patient's antibiotics are going to be switched just to give coverage for any post-obstructive pneumonitis. As far as his metastatic disease in the bone, the patient already received . He is on bronchodilators for his chronic obstructive pulmonary disease. He is on inhaled corticosteroids and he is also on IV steroids, which has been increased, dose of Solu-Medrol 40 mg now and it has been increased to 40 every 6. We will monitor his blood sugars. Gastric and deep venous thrombosis prophylaxis have been requested. Surgery is planned for Monday. Radiation will be given tomorrow to his leg as well. Time spent with the patient greater than 80 minutes, out of which more than 50% of time was spent with the patient's family discussing the overall findings on the patient's cancer status, what our plan is and overall target plan at this point in time. Copies of the chemotherapy regimen were given to the patient's family. All these were written and were fully explained to the patient's treating nurse. The patient will receive dexamethasone, folic acid and B12 in preparation for the systemic chemotherapy. Please make a note, this is a complex medical visit for this patient who has multiple comorbid medical issues. Artem Wolf MD
--- NOTE | 2017-11-13 09:25 | PN ---
DATE: 11/12/2017 PULMONARY PROGRESS NOTE REFERRING PHYSICIAN: Dr. Wolf. SUBJECTIVE: He was lying on the bed, feels okay, has some increased cough than usual. No nausea. No vomiting. No diarrhea. No leg pain or leg swelling. Has Benjamin wraps on the right lower extremity. PHYSICAL EXAMINATION GENERAL: In no acute distress. VITAL SIGNS: Temperature is 98, heart rate is 77, respiratory rate is 22, blood pressure 125/58, pulse ox 100% on 2 L nasal cannula. HEENT: Moist mucous membrane. Crowded airway. NECK: Supple. No JVD. LUNGS: Scattered rhonchi. Decreased breath sounds in the left upper lung. HEART: S1 and S2. ABDOMEN: Soft, nontender. No organomegaly. EXTREMITIES: Has wraps on the right lower extremity. NEUROLOGICAL: Awake and alert. Follows simple command. MEDICATIONS: He is on Mucomyst 20% 3 mL inhaled twice a day, Ambien 5 mg at bedtime p.r.n., Brovana inhaled twice a day, calcium 600 mg twice a day, Decadron 8 mg twice a day, doxycycline 100 mg twice a day, DuoNeb every 6 hours p.r.n., folic acid 1 mg twice a day, heparin 5000 units subcu every 12 hours, Lipitor 10 mg daily, Lopressor 25 mg twice a day, magnesium oxide 400 mg twice a day, MiraLax 17 g twice a day, Neutra-Phos one pack 3 times a day, oxycodone immediate release 5 mg every 6 hours p.r.n., Protonix 40 mg daily, Solu-Medrol 40 mg every 6 hours, Tylenol p.r.n., Ultram 50 mg every 8 hours p.r.n., Xanax 0.25 mg at bedtime, Zofran p.r.n. basis. LABORATORY DATA: Shows hemoglobin 9.2, hematocrit 28.5, WBC 8.5, platelet count is 205. INR 1.15. PTT 29. Sodium 138, potassium 3.7, chloride 100, bicarbonate 32, BUN 8, creatinine 0.3, glucose 104, calcium is 7.7, phosphorus is 1.9, AST is 23, ALT is 21, alkaline phosphatase is 80, albumin is 2.8. This afternoon had a chest x-ray done, he had episodes of shortness of breath, which reported left upper lobe opacity consistent with atelectasis and tumor, and effusion is seen PET CT scan. 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 This afternoon, I received call from the nursing staff. The patient is more short of breath, has more cough and sputum production, most likely it is aspiration related bronchitis because x-ray has not changed much and cefepime 1 g IV daily started. Steroids was increased by Dr. Wolf. Continue inhaled bronchodilator, keep head at 45 degrees. Thank you and we will follow with you. Judit Dent MD
[2017-11-13] MEDS ORDERED: [UNRECOGNIZED DRUG - OTHER] IVPB ONE (10:45)
[2017-11-13] MEDS ORDERED: FAMOTIDINE IVPB ONE (10:45)
[2017-11-13] MEDS ORDERED: DIPHENHYDRAMINE IVPB ONE (10:45)
[2017-11-13] MEDS ORDERED: DEXAMETHASONE IVPB ONE (10:45)
[2017-11-13] MEDS ORDERED: ONDANSETRON IVPB ONE (10:45)
[2017-11-13] MEDS ORDERED: CARBOPLATIN IV ONE (11:00)
[2017-11-13] MEDS ORDERED: SODIUM CHLORIDE 0.9% IV ONE (11:00)
--- NOTE | 2017-11-13 17:59 | RAD ---
HISTORY: constipation COMPARISON: No prior. FINDINGS: BOWEL: Normal. No obstruction. No free air. BONES: Normal. OTHER FINDINGS: None. IMPRESSION: No significant or acute findings to account for/ related to the clinical presentation.
[2017-11-13] MEDS: MethylPREDNISolone 40 mg Vial IVP SCH (23:52)
[2017-11-14] MEDS: Albuterol-Ipratrop 3 mg / 0.5 (3 ml) UD IH PRN (04:05)
[2017-11-14 06:30] LABS: GRAN # 4.64 (1.4-6.5); GRAN % 91.5 % (50.0-68.0); HEMOGLOBIN 9.2 g/dL (14.0-18.0); LYMPH # 0.4 (1.2-3.4); LYMPH % 6.9 % (22.0-35.0); MEAN CELL VOLUME 91.1 fl (80.0-105.0); MEAN CORPUSCULAR HEMOGLOBIN 29.1 pg (25.0-35.0); MEAN CORPUSCULAR HGB CONC 31.9 g/dl (31.0-37.0); MEAN PLATELET VOLUME 9.5 fl (7.0-11.0); MONO # 0.1 (0.1-0.6); MONO % 1.6 % (1.0-6.0); RBC 3.16 10^6/uL (3.5-6.1); RED CELL DISTRIBUTION WIDTH 15.6 % (11.5-14.5); WHITE BLOOD COUNT 5.1 10^3/ul (4.5-11.0)
[2017-11-14 06:51] LABS: ALBUMIN 2.8 g/dL (3.0-4.8); ALT/SGPT 35 U/L (7-56); AST/SGOT 24 U/L (17-59); BLOOD UREA NITROGEN 13 mg/dL (7-21); CALCIUM 7.1 mg/dL (8.4-10.5); GFR NON-AFRICAN AMERICAN > 60
--- NOTE | 2017-11-14 07:00 | CP.PCM.PN ---
Subjective - Date & Time of Evaluation Date of Evaluation: 11/14/17 Time of Evaluation: : - Subjective Subjective: Lying in bed,denies chest pain,denies shortness of breath, no distress Reason for consultation and follow up: Cardiac evaluation and risk stratification for possible ankle surgery (lytic lesion in distal tibia) Seen and examined by me and Dr. Pro Objective - Vital Signs/Intake and Output Vital Signs (last 24 hours): Temp Pulse Resp BP Pulse Ox 97.6 F 58 L 18 119/66 93 L 11/14/17 00:00 11/14/17 00:00 11/14/17 04:06 11/14/17 00:00 11/14/17 04:06 Intake and Output: 11/13/17 11/14/17 18:59 06:59 Intake Total 720 Output Total 375 750 Balance 345 -750 - Medications Medications: Current Medications Acetaminophen (Tylenol 325mg Tab) 650 mg PO Q6H PRN PRN Reason: Fever >100.4 F Last Admin: 11/13/17 21:11 Dose: 650 mg Acetylcysteine (Acetylcysteine 20%) 3 ml IH [id number] [facility] Last Admin: 11/13/17 20:23 Dose: 3 ml Albuterol/Ipratropium (Duoneb 3 Mg/0.5 Mg (3 Ml) Ud) 3 ml IH Q6H PRN PRN Reason: Shortness of Breath Last Admin: 11/14/17 04:05 Dose: 3 ml Alprazolam (Xanax) 0.25 mg PO HS PRN; Protocol PRN Reason: Anxiety Stop: 11/17/17 20:01 Last Admin: 11/13/17 22:16 Dose: 0.25 mg Alprazolam (Xanax) 0.25 mg PO BID PRN; Protocol PRN Reason: Anxiety Stop: 11/18/17 15:38 Last Admin: 11/13/17 18:01 Dose: 0.25 mg Arformoterol Tartrate (Brovana) 15 mcg IH [id number] [facility] Last Admin: 11/13/17 20:20 Dose: 15 mcg Atorvastatin Calcium (Lipitor) 10 mg PO DIN [facility] Last Admin: 11/13/17 18:01 Dose: 10 mg Calcium Carbonate (Caltrate) 600 mg PO BID [facility] Last Admin: 06/25/18 18:01 Dose: 600 mg Dexamethasone (Decadron) 8 mg PO BIDPC [facility] Stop: 11/16/17 10:01 Doxycycline Hyclate (Doryx) 100 mg PO Q12 [facility] PRN Reason: Protocol Last Admin: 11/13/17 21:29 Dose: 100 mg Folic Acid (Folic Acid) 1 mg PO BID [facility] Heparin Sodium (Porcine) (Heparin) 5,000 units SC Q12H [facility] PRN Reason: Protocol Last Admin: 11/12/17 11:00 Dose: 5,000 units Cefepime HCl (Maxipime 1gm) 1 gm in 100 mls @ 100 mls/hr IVPB DAILY [facility] PRN Reason: Protocol Methylprednisolone (Solu-Medrol) 40 mg IVP Q12 [facility] Last Admin: 11/13/17 23:52 Dose: 40 mg Metoprolol Tartrate (Lopressor) 25 mg PO BRKDIN [facility] Last Admin: 11/12/17 08:30 Dose: 25 mg Ondansetron HCl (Zofran Inj) 4 mg IVP Q6H PRN PRN Reason: Nausea/Vomiting Pantoprazole Sodium (Protonix Ec Tab) 40 mg PO DAILY [facility] Last Admin: 11/12/17 10:33 Dose: 40 mg Polyethylene Glycol (Miralax) 17 gm PO BID [facility] Last Admin: 11/12/17 17:34 Dose: 17 gm Tramadol HCl (Ultram) 50 mg PO Q8 PRN PRN Reason: Pain, moderate (4-7) Last Admin: 11/10/17 14:17 Dose: 50 mg Zolpidem Tartrate (Ambien) 5 mg PO HS PRN; Protocol PRN Reason: Insomnia Last Admin: 11/09/17 22:28 Dose: 5 mg - Labs Labs: 11/14/17 06:20 11/14/17 06:20 PT 13.3 SECONDS (9.4-12.5) H 11/12/17 06:16 INR 1.15 (0.93-1.08) H 11/12/17 06:16 APTT 28.9 Seconds (25.1-36.5) 11/12/17 06:16 - Constitutional Appears: No Acute Distress - Eye Exam Eye Exam: Normal appearance - ENT Exam ENT Exam: Mucous Membranes Moist - Respiratory Exam Respiratory Exam: Clear to Ausculation Bilateral, NORMAL BREATHING PATTERN - Cardiovascular Exam Cardiovascular Exam: +S1, +S2 Additional comments: right upper chest wall port/accessed - GI/Abdominal Exam GI & Abdominal Exam: Soft, Normal Bowel Sounds - Extremities Exam Additional comments: right leg with amie wrap - Neurological Exam Neurological Exam: Alert, Awake, Oriented x3 - Psychiatric Exam Psychiatric exam: Normal Affect, Normal Mood - Skin Skin Exam: Intact, Normal Color, Warm Assessment and Plan - Assessment and Plan (Free Text) Assessment: A 72 year old male who came in to the ER due to ankle pain. Foot and ankle x- rays done and showed lytic lesion in distal tibia.For possible surgery to prevent fracture. Consult was called to clear patient for surgery. Recently diagnosed of lung adenocarcinoma poorly differentiated and getting chemotherapy. History of smoking, COPD.Had venous port right upper chest for chemotherapy. Plan: For ankle surgery today Cleared from cardiac standpoint for ankle surgical procedure Moderate risk No evidence of ischemia or heart failure Stable heart rate and blood pressure Continue current treatment Continue current medications Will follow up postoperatively Plan and treatment discussed with Dr. Pro
[2017-11-14] MEDS ORDERED: Propofol 10 mg/ml Inj (20 ML) ONE (07:29)
[2017-11-14] MEDS ORDERED: Rocuronium 10 mg/ml (5 ml) ONE ×2 (07:30→07:42)
[2017-11-14] MEDS ORDERED: Etomidate 20 mg/10ml Inj IV ONE ×2 (07:30→07:42)
[2017-11-14] MEDS: Acetylcysteine 20% Inhal Soln (4ml) IH SCH ×2 (07:30→19:53)
[2017-11-14] MEDS ORDERED: Midazolam 2 MG/2 ML VIAL ONE (07:30)
[2017-11-14] MEDS: Arformoterol 15 mcg/2 ml Inh Sol IH SCH ×2 (07:30→19:54)
[2017-11-14] MEDS ORDERED: Phenylephrine 10 mg/ml Inj ONE (07:37)
--- NOTE | 2017-11-14 08:18 | CP.PCM.PN ---
Objective - Vital Signs/Intake and Output Vital Signs (last 24 hours): Temp Pulse Resp BP Pulse Ox 97.5 F L 75 18 114/57 L 90 L 11/14/17 08:15 11/14/17 08:15 11/14/17 08:15 11/14/17 08:15 11/14/17 08:15 Intake and Output: 11/14/17 11/14/17 06:59 18:59 Output Total 750 Balance -750 - Medications Medications: Current Medications Acetaminophen (Tylenol 325mg Tab) 650 mg PO Q6H PRN PRN Reason: Fever >100.4 F Last Admin: 11/13/17 21:11 Dose: 650 mg Acetylcysteine (Acetylcysteine 20%) 3 ml IH [id number] [facility] Last Admin: 11/14/17 07:30 Dose: Not Given Albuterol/Ipratropium (Duoneb 3 Mg/0.5 Mg (3 Ml) Ud) 3 ml IH Q6H PRN PRN Reason: Shortness of Breath Last Admin: 11/14/17 04:05 Dose: 3 ml Alprazolam (Xanax) 0.25 mg PO HS PRN; Protocol PRN Reason: Anxiety Stop: 11/17/17 20:01 Last Admin: 11/13/17 22:16 Dose: 0.25 mg Alprazolam (Xanax) 0.25 mg PO BID PRN; Protocol PRN Reason: Anxiety Stop: 11/18/17 15:38 Last Admin: 11/13/17 18:01 Dose: 0.25 mg Arformoterol Tartrate (Brovana) 15 mcg IH [id number] [facility] Last Admin: 11/14/17 07:30 Dose: Not Given Atorvastatin Calcium (Lipitor) 10 mg PO DIN [facility] Last Admin: 11/13/17 18:01 Dose: 10 mg Calcium Carbonate (Caltrate) 600 mg PO BID [facility] Last Admin: 11/13/17 18:01 Dose: 600 mg Dexamethasone (Decadron) 8 mg PO BIDPC [facility] Doxycycline Hyclate (Doryx) 100 mg PO Q12 [facility] PRN Reason: Protocol Last Admin: 11/13/17 21:29 Dose: 100 mg Folic Acid (Folic Acid) 1 mg PO BID [facility] Heparin Sodium (Porcine) (Heparin) 5,000 units SC Q12H [facility] PRN Reason: Protocol Last Admin: 11/12/17 11:00 Dose: 5,000 units Cefepime HCl (Maxipime 1gm) 1 gm in 100 mls @ 100 mls/hr IVPB DAILY [facility] PRN Reason: Protocol Methylprednisolone (Solu-Medrol) 40 mg IVP Q12 [facility] Last Admin: 11/13/17 23:52 Dose: 40 mg Metoprolol Tartrate (Lopressor) 25 mg PO BRKDIN [facility] Last Admin: 11/12/17 08:30 Dose: 25 mg Ondansetron HCl (Zofran Inj) 4 mg IVP Q6H PRN PRN Reason: Nausea/Vomiting Pantoprazole Sodium (Protonix Ec Tab) 40 mg PO DAILY [facility] Last Admin: 11/12/17 10:33 Dose: 40 mg Polyethylene Glycol (Miralax) 17 gm PO BID [facility] Last Admin: 11/12/17 17:34 Dose: 17 gm Tramadol HCl (Ultram) 50 mg PO Q8 PRN PRN Reason: Pain, moderate (4-7) Last Admin: 11/10/17 14:17 Dose: 50 mg Zolpidem Tartrate (Ambien) 5 mg PO HS PRN; Protocol PRN Reason: Insomnia Last Admin: 11/09/17 22:28 Dose: 5 mg - Labs Labs: 11/14/17 06:20 11/14/17 06:20 PT 13.3 SECONDS (9.4-12.5) H 11/12/17 06:16 INR 1.15 (0.93-1.08) H 11/12/17 06:16 APTT 28.9 Seconds (25.1-36.5) 11/12/17 06:16
--- NOTE | 2017-11-14 08:52 | PN ---
DATE: 11/13/2017 ONCOLOGY PROGRESS NOTE LOCATION: Patient is in room 372, bed 1. PROBLEMS: This is an 72-year-old male with extensive stage IV metastatic non-small cell carcinoma with obstruction of the left main stem bronchus and cutoff of air supply to the left upper lobe bronchus with complete collapse, completed radiation to the left main stem and left upper lobe. Admitted to the hospital because of progressively worsening pain in the right lower extremity after a fall at home and found to have a lytic lesion in the tibia. Along with this, patient had a pathologic fracture, a little bit below the lytic lesion, in the tibia just above the ankle where he has the fracture. Patient is being assessed for stabilization of the fracture with pinning tomorrow morning. Patient in the meantime had a port placed last week. He is being assessed for administration of carboplatin and pemetrexed today while using for his planned surgery tomorrow. Radiation therapy for the right tibia is currently on hold. Patient is status post Aredia, which is an IV bisphosphonate for his bone metastasis. SUBJECTIVE: Patient is lying in bed, awake, alert and oriented. Denies any chest pain. Patient has mild shortness of breath, which gets aggravated with anxiety, but definitely appears better than over the weekend where he was having some difficulty in coughing. PHYSICAL EXAMINATION: VITAL SIGNS: Vital signs are stable, as stated in the chart, T-max is 98.2, pulse is 77, respirations 22, blood pressure is 125/58, pulse ox is 100% on room air. GENERAL: Patient is awake, alert, and oriented. HEENT: As mentioned, head is normocephalic and atraumatic. Temporal muscle wasting is noted. Examination of the oropharynx reveals poor dentition. Tongue is moist. No ulcerations are noted. There is no evidence of any fungal infection. NECK: Supple. There is no adenopathy. LUNGS: Reveal bronchial breath sounds on the left side posteriorly. Patient has scattered wheezes on the right side. Decreased breath sounds are noted in both bases. CARDIOVASCULAR: Reveals PMI to be in the fifth intercostal space, inside the midclavicular line. S1 and S2 are normal. No gallop or murmur is heard. ABDOMEN: Soft and nontender. Liver and spleen are not palpable. There is no rebound, rigidity, or guarding noted. EXTREMITIES: Patient's right lower extremity just below the knee, above the ankle, is in a cast related to the fracture, for which, he is going for pinning tomorrow morning. Left leg is unremarkable. There is no ankle edema noted. GENITOURINARY AND RECTAL: Deferred. NEUROLOGIC: Reveals higher functions to be normal. No focal deficits are noted. SKIN: Turgor is normal. No skin lesions per se are noted. LABORATORY DATA: Labs from today reveals a white count of 8.5, hemoglobin 9.2, hematocrit 28.5, platelet count . Sodium is 138, K is 3.7, chloride 100, CO2 of 32, BUN of 8, creatinine 0.3. Blood sugar of 140. PT/INR is within normal limits. MEDICATIONS: Patient's medications are reviewed. He is Tylenol 650 every 6 hours p.r.n. He is on acetylcysteine 3 mL inhaled every 12 hours. He is on DuoNeb 3 mL inhaled every 6 hours, Xanax 0.25 mg p.o. b.i.d. and p.r.n. He is on Brovana 15 mcg inhaled every 12 hours. He is on Lipitor 10 mg p.o. daily. He is on calcium carbonate, Caltrate 600 b.i.d. He is on Decadron 8 mg p.o. b.i.d. after meals for 4 days, doxycycline 100 mg p.o. every 12 hours, folic acid 1 mg p.o. b.i.d., heparin 5000 units subcu every 12 hours. He is on cefepime 1 g IV piggyback daily, methylprednisolone 40 mg IV piggyback every 6 hours, metoprolol 25 mg p.o. daily. Zofran 4 mg IV every 6 hours p.r.n. for nausea, pantoprazole 40 mg p.o. daily, MiraLax 17 g p.o. b.i.d., Neutra-Phos 1 packet t.i.d., tramadol 50 mg p.o. every 8 hours p.r.n., Ambien 5 mg p.o. at bedtime p.r.n. ASSESSMENT, NOTES AND PLAN: This is a 72-year-old male with extensive metastatic non-small cell carcinoma of the lung, adenocarcinoma, with pathologic fracture at 2 separate areas in the right tibia, above the ankle and below the knee, for pinning tomorrow morning. Status post intravenous bisphosphonate Aredia given 3 days ago, status post chemotherapy, given 2 days of carboplatin and pemetrexed, receiving both folic acid, B12, and dexamethasone for 3 days post-chemotherapy. Completed radiation to the left main stem bronchus and left upper lobe bronchus. Waiting to resume radiation to the right ankle once the fracture is fixed. Patient is being seen by Pulmonary and by Cardiology for the ankle surgical procedure. Patient is at moderate risk, which is scheduled for tomorrow, with no evidence of any ischemia or heart failure, with stable heart rate and blood pressure. Patient is on low dose beta-sarah to prevent atrial fibrillation. Patient will continue his current treatment. Monitor him very carefully including monitoring the CBC to see if he requires Neupogen. first cycle of chemotherapy. We will monitor the patient's blood count very carefully over the next 3 days before deciding on initiating Neupogen. Routine post-exam instructions have been given to the patient. I spoke to the patient and patient's family in great detail, gave them copies of all the articles as well. Time spent with the patient is greater than 80 minutes, in correlating all the facts, talking to Dr. Fuller regarding the planned surgery, talking to Dr. Dent from his pulmonary point of view and talking to Dr. Pro as well. Time spent with the patient is greater than 80 minutes, out of which more than 50% of the time was spent in [id number] contact. Please make a note, this is a medically complex patient with multiple comorbid medical issues. Artem Wolf MD
--- NOTE | 2017-11-14 08:54 | PN ---
DATE: 11/13/2017 PULMONARY PROGRESS NOTE REFERRING PHYSICIAN: Dr. Durbin. SUBJECTIVE: The patient is lying in the bed, head at 45 degrees. Family is at bedside. Feels better than yesterday. Decreased cough. No nausea. No vomiting. No diarrhea. Right leg pain, has Benjamin wrap. OBJECTIVE: GENERAL: In no acute distress. VITAL SIGNS: Temperature is 98, heart rate is 73, respiratory rate is 20, blood pressure 128/63, pulse ox 94% on 2 liters nasal cannula. HEENT: Moist mucous membrane. Crowded airway. Mallampati score is 4. NECK: Supple. No JVD. LUNGS: Have a decreased breath sounds at the left lung with scattered rhonchi. HEART: S1 and S2. ABDOMEN: Soft, nontender. No organomegaly. EXTREMITIES: No edema. NEUROLOGICAL: Awake and alert. Follows simple command. MEDICATIONS: She is on Mucomyst 20% inhaled every 12 hours, Ambien 5 mg at bedtime p.r.n., Brovana inhaled twice a day, calcium carbonate 600 mg twice a day, Decadron 8 mg twice a day, doxycycline 100 mg twice a day, DuoNeb every 6 hours p.r.n., folic acid 1 mg daily, heparin 5000 units subcu every 12 hours, Lipitor 10 mg daily, cefepime 1 g IV daily, MiraLax 17 g daily, Neutra-Phos one pack three times a day, Protonix 40 mg daily, Solu-Medrol 40 mg every 6 hours, Tylenol p.r.n. basis, Ultram 50 mg every 8 hours p.r.n., Xanax 0.25 mg at bedtime and Zofran p.r.n. basis. LABORATORY DATA: Shows hemoglobin 9.3, hematocrit 29.1, WBC 6.2, platelet is 249. Sodium 139, potassium 3.8, chloride 101, bicarbonate 32, BUN 12, creatinine 0.4, glucose 143, phosphorus 1.9, AST 27, ALT , alk phos is 87, albumin is 2.8. 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 Case discussed with did also spoke to nursing staff. Spoke to family at bedside. We will decrease Solu-Medrol to 40 every 12 hours. Continue antibiotics. Keep head at 45 degrees. Aspiration precaution. Gastric prophylaxis and deep venous thrombosis prophylaxis. Medically stable for right leg orthopedic procedure. Thank you and we will follow with you. Judit Dent MD
[2017-11-14] MEDS ORDERED: Bupivacaine 0.5% Inj(30mL) ONE (09:02)
[2017-11-14] MEDS ORDERED: Lactated Ringer's 1,000 ML IV SCH (10:45)
[2017-11-14] MEDS: POLYETHYLENE GLYCOL 3350 17 GM/Dose PACKET PO SCH (11:31)
[2017-11-14] MEDS: Cefepime 1gm in NS 100ml 1 GM/100 ML BAG IVPB SCH (11:31)
[2017-11-14] MEDS: Potassium & Sodium Phosphate PO SCH ×2 (11:32→14:06)
[2017-11-14] MEDS: MethylPREDNISolone 40 mg Vial IVP SCH (11:32)
[2017-11-14] MEDS: Pantoprazole 40 mg EC Tab PO SCH (11:32)
--- NOTE | 2017-11-14 12:10 | CP.PCM.PN ---
Subjective - Date & Time of Evaluation Date of Evaluation: 11/14/17 Time of Evaluation: 11:46 - Subjective Subjective: Seen and examined in PACU, chart reviewed. Patient s/p right ORIF tibia. Patient is awake and alert, no acute distress. Patient denies N,V,or abdominal pain, no further episode of bleeding per rectum. No new complaints. Objective - Vital Signs/Intake and Output Vital Signs (last 24 hours): Temp Pulse Resp BP Pulse Ox 97.6 F 73 12 123/61 93 L 11/14/17 11:33 11/14/17 11:33 11/14/17 11:33 11/14/17 11:33 11/14/17 11:33 Intake and Output: 11/14/17 11/14/17 06:59 18:59 Intake Total 0 Output Total 750 Balance -750 0 - Medications Medications: Current Medications Acetaminophen (Tylenol 325mg Tab) 650 mg PO Q6H PRN PRN Reason: Fever >100.4 F Last Admin: 11/13/17 21:11 Dose: 650 mg Acetylcysteine (Acetylcysteine 20%) 3 ml IH [id number] [facility] Last Admin: 11/14/17 07:30 Dose: Not Given Albuterol/Ipratropium (Duoneb 3 Mg/0.5 Mg (3 Ml) Ud) 3 ml IH Q6H PRN PRN Reason: Shortness of Breath Last Admin: 11/14/17 04:05 Dose: 3 ml Alprazolam (Xanax) 0.25 mg PO HS PRN; Protocol PRN Reason: Anxiety Stop: 11/17/17 20:01 Last Admin: 11/13/17 22:16 Dose: 0.25 mg Alprazolam (Xanax) 0.25 mg PO BID PRN; Protocol PRN Reason: Anxiety Stop: 11/18/17 15:38 Last Admin: 11/13/17 18:01 Dose: 0.25 mg Arformoterol Tartrate (Brovana) 15 mcg IH [id number] [facility] Last Admin: 11/14/17 07:30 Dose: Not Given Atorvastatin Calcium (Lipitor) 10 mg PO DIN [facility] Last Admin: 11/13/17 18:01 Dose: 10 mg Calcium Carbonate (Caltrate) 600 mg PO BID [facility] Last Admin: 11/14/17 11:29 Dose: Not Given Dexamethasone (Decadron) 8 mg PO BIDPC [facility] Stop: 11/17/17 10:01 Doxycycline Hyclate (Doryx) 100 mg PO Q12 [facility] PRN Reason: Protocol Last Admin: 11/14/17 11:29 Dose: Not Given Fentanyl (Fentanyl) 25 mcg IV Q5M PRN PRN Reason: Pain, moderate (4-7) Last Admin: 11/14/17 11:15 Dose: 25 mcg Folic Acid (Folic Acid) 1 mg PO BID [facility] Last Admin: 11/14/17 11:30 Dose: Not Given Heparin Sodium (Porcine) (Heparin) 5,000 units SC Q12H [facility] PRN Reason: Protocol Last Admin: 11/12/17 11:00 Dose: 5,000 units Cefepime HCl (Maxipime 1gm) 1 gm in 100 mls @ 100 mls/hr IVPB DAILY [facility] PRN Reason: Protocol Last Admin: 11/14/17 11:31 Dose: Not Given Lactated Ringer's (Lactated Ringer's) 1,000 mls @ 75 mls/hr IV .[id number] [facility] Stop: 11/14/17 12:46 Methylprednisolone (Solu-Medrol) 40 mg IVP Q12 [facility] Last Admin: 11/14/17 11:32 Dose: Not Given Metoprolol Tartrate (Lopressor) 25 mg PO BRKDIN [facility] Last Admin: 11/14/17 11:31 Dose: Not Given Ondansetron HCl (Zofran Inj) 4 mg IVP Q6H PRN PRN Reason: Nausea/Vomiting Pantoprazole Sodium (Protonix Ec Tab) 40 mg PO DAILY [facility] Last Admin: 11/14/17 11:32 Dose: Not Given Polyethylene Glycol (Miralax) 17 gm PO BID [facility] Last Admin: 11/14/17 11:31 Dose: Not Given Potassium Phos/Sodium Phos (Neutra-Phos) 1 pkt PO TID [facility] Stop: 11/15/17 23:00 Last Admin: 11/14/17 11:32 Dose: Not Given Tramadol HCl (Ultram) 50 mg PO Q8 PRN PRN Reason: Pain, moderate (4-7) Last Admin: 11/10/17 14:17 Dose: 50 mg Zolpidem Tartrate (Ambien) 5 mg PO HS PRN; Protocol PRN Reason: Insomnia Last Admin: 11/09/17 22:28 Dose: 5 mg - Labs Labs: 11/14/17 06:20 11/14/17 06:20 PT 13.3 SECONDS (9.4-12.5) H 11/12/17 06:16 INR 1.15 (0.93-1.08) H 11/12/17 06:16 APTT 28.9 Seconds (25.1-36.5) 11/12/17 06:16 - Constitutional Appears: No Acute Distress - Head Exam Head Exam: NORMOCEPHALIC - Eye Exam Eye Exam: Normal appearance. absent: Scleral icterus - ENT Exam ENT Exam: Mucous Membranes Moist - Respiratory Exam Respiratory Exam: NORMAL BREATHING PATTERN. absent: Respiratory Distress - Cardiovascular Exam Cardiovascular Exam: +S1, +S2 - GI/Abdominal Exam GI & Abdominal Exam: Soft, Normal Bowel Sounds. 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 Levine.
[2017-11-14] MEDS ORDERED: Enoxaparin 30 mg Syringe SC SCH (16:30)
--- NOTE | 2017-11-14 19:30 | OP ---
PROCEDURE DATE: 11/14/2017 PREOPERATIVE DIAGNOSES: Metastatic lesion with fracture of the tibial shaft distally and proximally of the right side. POSTOPERATIVE DIAGNOSES: Metastatic lesion with fracture of the tibial shaft distally and proximally of the right side. PROCEDURES: Intramedullary tibial nail, right tibial metastatic lesion and fracture with a Biomet tibial catrachito that was 9 mm wide and 300 mm long. 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 Ralph , fourth year surgical nurse. ANESTHESIA: General endotracheal tube. DESCRIPTION OF PROCEDURE: The patient was taken to the OR. Right leg prepped and draped in sterile fashion and general anesthesia with endotracheal tube. Once the right leg was draped and prepped in sterile fashion, we saw the x-ray of the leg from the knee to the ankle and we did a split of the patellar tendon for 1 cm going through the tendon into the proximal tibia aligning the entry point up with a threaded tip guidewire. X-ray showed good position both AP and lateral and put in the treaded tip guidewire which were over drilled with a special reamer, 14 mm wide. Then, we did the needle tip guidewire through the tibial shaft going as distal as possible so we could put in a long catrachito for the tibia because of the fact that metastatic lesion was 2 inches above the ankle joint and 3 inches below the knee joint. Then, we over reamed 10.5 mm, so we could get our tibial catrachito in, which was 9 mm. This was done with a special jig, put in the catrachito in the tibia, then we locked it proximally with 2 cross screws to help with the jig. In the good part of the tibial metaphysis proximally and distally, we did the same thing except with the C-arm used to go through the catrachito; held one anterior to posterior and one lateral to medial. X-ray showed good position of all 4 locking screws and the catrachito and the fracture did not displace. Then, we closed all 5 wounds with irrigation and 2-0 Vicryl for deep layer and patellar tendon with 0 Vicryl and paratenon with 0 Vicryl and skin with 3-0 nylon interrupted. The patient was taken to the recovery room in good condition. Dayne Fuller DO [facility] # [id number]
--- NOTE | 2017-11-15 02:41 | PN ---
DATE: 11/14/2017 PULMONARY PROGRESS NOTE REFERRING PHYSICIAN: Adolfo Durbin MD SUBJECTIVE: He is lying in the bed, just come back from OR. Feels okay. Cough is better. No chest pain. No nausea. No vomiting. No diarrhea. Mild right leg discomfort. OBJECTIVE: GENERAL: In no acute distress. VITAL SIGNS: Temp is 98, heart rate is 80, respiratory rate is 18, blood pressure 102/46, pulse ox 95% on 3 liter nasal cannula. HEENT: Moist mucous membrane. No ulcer or thrush noted. NECK: Supple. No JVD. LUNGS: Have a few scattered rhonchi. HEART: S1 and S2. ABDOMEN: Soft and nontender. No organomegaly. EXTREMITIES: Right lower extremity in dressing and Benjamin wraps. NEUROLOGIC: Awake and alert. Follows simple command. MEDICATIONS: He is on Mucomyst 20% inhaled every 12 hours, Ambien 5 mg at bedtime p.r.n., Brovana inhaled twice a day, calcium carbonate 600 mg twice a day, Decadron 8 mg twice a day, doxycycline 100 mg twice a day, DuoNeb every 6 hours p.r.n., fentanyl 20 mcg every p.r.n. basis, folic acid 1 mg daily, Lipitor 10 mg daily, metoprolol tartrate 25 mg daily, Lovenox 30 mg daily, cefepime 1 g IV daily, MiraLax 17 g twice a day, K-Phos 1 pack 3 times a day, Protonix 40 mg daily, Solu-Medrol 40 mg every 12 hour, Tylenol p.r.n., Ultram 50 mg every 8 hours p.r.n., Xanax 0.25 mg at bedtime p.r.n., Zofran 4 mg every 4 hours p.r.n. LABORATORY DATA: Shows hemoglobin 9.2, hematocrit 28.8, WBC 5.1, platelet is 289. Sodium 137, potassium 3.6, chloride 101, bicarbonate 32, BUN 13, creatinine 0.4, glucose 154, calcium is 7.1, phosphorus 2.1, magnesium 2.1, AST 24, ALT 35, alk phos is 78, albumin is 2.8. IMPRESSION AND PLAN: Adenocarcinoma of the lung, metastatic disease involving the ribs and right lower extremity with lytic lesion, requiring surgery today; chronic obstructive lung disease; oropharyngeal dysphagia, on modified diet. This may be component of aspiration pneumonia. I spoke to patient's family at bedside. All the questions answered. Continue bronchodilator. Keep head at 45 degrees. Patient is on Decadron. We will discontinue Solu-Medrol. Continue antibiotics. Gastric prophylaxis. When cleared by Orthopedic, we will start physical therapy. Thank you and we will follow with you. Judit Dent MD
[2017-11-15 07:01] LABS: GRAN # 5.66 (1.4-6.5); GRAN % 90.6 % (50.0-68.0); HEMOGLOBIN 9.4 g/dL (14.0-18.0); LYMPH # 0.3 (1.2-3.4); LYMPH % 4.6 % (22.0-35.0); MEAN CELL VOLUME 90.9 fl (80.0-105.0); MEAN CORPUSCULAR HEMOGLOBIN 29.6 pg (25.0-35.0); MEAN CORPUSCULAR HGB CONC 32.5 g/dl (31.0-37.0); MEAN PLATELET VOLUME 9.2 fl (7.0-11.0); MONO # 0.3 (0.1-0.6); MONO % 4.8 % (1.0-6.0); PLATELET COUNT 290 10^3/uL (120.0-450.0); RBC 3.18 10^6/uL (3.5-6.1); RED CELL DISTRIBUTION WIDTH 15.7 % (11.5-14.5); WHITE BLOOD COUNT 6.3 10^3/ul (4.5-11.0)
--- NOTE | 2017-11-15 07:14 | CP.PCM.PN ---
Subjective - Date & Time of Evaluation Date of Evaluation: 11/15/17 Time of Evaluation: 06:30 - Subjective Subjective: Awake, watching TV,lying in bed,denies chest pain,denies shortness of breath, no distress Reason for consultation and follow up: Cardiac evaluation and risk stratification for possible ankle surgery (lytic lesion in distal tibia), history of COPD, smoking.Recently diagnosed of lung adenocarcinoma, on chemotherapy. Seen and examined by me and Dr. Pro Objective - Vital Signs/Intake and Output Vital Signs (last 24 hours): Temp Pulse Resp BP Pulse Ox 98.0 F 80 18 102/46 L 95 11/14/17 18:00 11/14/17 18:00 11/14/17 18:00 11/14/17 18:00 11/14/17 18:00 Intake and Output: 11/15/17 11/15/17 06:59 18:59 Intake Total 120 Output Total 950 Balance -830 - Medications Medications: Current Medications Acetaminophen (Tylenol 325mg Tab) 650 mg PO Q6H PRN PRN Reason: Fever >100.4 F Last Admin: 11/13/17 21:11 Dose: 650 mg Acetylcysteine (Acetylcysteine 20%) 3 ml IH [id number] [facility] Last Admin: 11/14/17 19:53 Dose: 3 ml Albuterol/Ipratropium (Duoneb 3 Mg/0.5 Mg (3 Ml) Ud) 3 ml IH Q6H PRN PRN Reason: Shortness of Breath Last Admin: 11/14/17 04:05 Dose: 3 ml Alprazolam (Xanax) 0.25 mg PO HS PRN; Protocol PRN Reason: Anxiety Stop: 11/17/17 20:01 Last Admin: 11/14/17 21:42 Dose: 0.25 mg Alprazolam (Xanax) 0.25 mg PO BID PRN; Protocol PRN Reason: Anxiety Stop: 11/18/17 15:38 Last Admin: 11/14/17 13:51 Dose: 0.25 mg Arformoterol Tartrate (Brovana) 15 mcg IH [id number] [facility] Last Admin: 11/14/17 19:54 Dose: 15 mcg Atorvastatin Calcium (Lipitor) 10 mg PO DIN [facility] Last Admin: 11/13/17 18:01 Dose: 10 mg Calcium Carbonate (Caltrate) 600 mg PO BID [facility] Last Admin: 11/14/17 11:29 Dose: Not Given Dexamethasone (Decadron) 8 mg PO BIDPC [facility] Stop: 11/17/17 10:01 Last Admin: 11/14/17 11:30 Dose: Not Given Doxycycline Hyclate (Doryx) 100 mg PO Q12 [facility] PRN Reason: Protocol Last Admin: 11/14/17 21:41 Dose: 100 mg Enoxaparin Sodium (Lovenox) 30 mg SC DAILY [facility] PRN Reason: Protocol Fentanyl (Fentanyl) 25 mcg IV Q5M PRN PRN Reason: Pain, moderate (4-7) Last Admin: 11/14/17 11:15 Dose: 25 mcg Folic Acid (Folic Acid) 1 mg PO BID [facility] Last Admin: 11/14/17 11:30 Dose: Not Given Cefepime HCl (Maxipime 1gm) 1 gm in 100 mls @ 100 mls/hr IVPB DAILY [facility] PRN Reason: Protocol Last Admin: 11/14/17 11:31 Dose: Not Given Metoprolol Tartrate (Lopressor) 25 mg PO BRKDIN [facility] Last Admin: 11/14/17 11:31 Dose: Not Given Ondansetron HCl (Zofran Inj) 4 mg IVP Q6H PRN PRN Reason: Nausea/Vomiting Pantoprazole Sodium (Protonix Ec Tab) 40 mg PO DAILY [facility] Last Admin: 11/14/17 11:32 Dose: Not Given Polyethylene Glycol (Miralax) 17 gm PO BID [facility] Last Admin: 11/14/17 11:31 Dose: Not Given Potassium Phos/Sodium Phos (Neutra-Phos) 1 pkt PO TID [facility] Stop: 11/15/17 23:00 Last Admin: 11/14/17 14:06 Dose: 1 pkt Tramadol HCl (Ultram) 50 mg PO Q8 PRN PRN Reason: Pain, moderate (4-7) Last Admin: 11/14/17 13:48 Dose: 50 mg Zolpidem Tartrate (Ambien) 5 mg PO HS PRN; Protocol PRN Reason: Insomnia Last Admin: 11/14/17 21:42 Dose: 5 mg - Labs Labs: 11/14/17 06:20 11/14/17 06:20 PT 13.3 SECONDS (9.4-12.5) H 11/12/17 06:16 INR 1.15 (0.93-1.08) H 11/12/17 06:16 APTT 28.9 Seconds (25.1-36.5) 11/12/17 06:16 - Constitutional Appears: No Acute Distress - Head Exam Head Exam: NORMOCEPHALIC - Eye Exam Eye Exam: Normal appearance - ENT Exam ENT Exam: Mucous Membranes Moist - Cardiovascular Exam Cardiovascular Exam: +S1, +S2 Additional comments: right subclavian port/accessed - GI/Abdominal Exam GI & Abdominal Exam: Soft, Normal Bowel Sounds - Exam Additional comments: continent - Extremities Exam Additional comments: right leg with amie wrap - Neurological Exam Neurological Exam: Alert, Awake, Oriented x3 - Psychiatric Exam Psychiatric exam: Normal Affect, Normal Mood - Skin Skin Exam: Intact, Normal Color, Warm Assessment and Plan - Assessment and Plan (Free Text) Assessment: A 72 year old male who came in to the ER due to ankle pain. Foot and ankle x- rays done and showed lytic lesion in distal tibia.For possible surgery to prevent fracture. Consult was called to clear patient for surgery. Recently diagnosed of lung adenocarcinoma poorly differentiated and getting chemotherapy. History of smoking, COPD.Had venous port right upper chest for chemotherapy.11/14/17 right ankle surgery. Plan: Post ankle surgery(POD #1) Cardiac status stable Stable heart rate and blood pressure Continue current treatment Continue current medications Will sign off Thank you for the opportunity in taking care of Mr. Monson Please refer back if needed Plan and treatment discussed with Dr. Pro
[2017-11-15 07:29] LABS: ALBUMIN 2.7 g/dL (3.0-4.8); ALT/SGPT 33 U/L (7-56); AST/SGOT 27 U/L (17-59); BLOOD UREA NITROGEN 12 mg/dL (7-21); GFR NON-AFRICAN AMERICAN > 60
[2017-11-15] MEDS: Arformoterol 15 mcg/2 ml Inh Sol IH SCH ×2 (07:54→19:40)
[2017-11-15] MEDS: Acetylcysteine 20% Inhal Soln (4ml) IH SCH ×2 (07:54→19:40)
[2017-11-15 07:58] LABS: LYMPHOCYTE 5 % (22.0-35.0); MONOCYTE 3 % (1.0-6.0); NEUTROPHIL 92 % (50.0-70.0)
[2017-11-15 07:59] LABS: PLATELET ESTIMATE NORMAL (NORMAL)
[2017-11-15 08:04] VITALS: RESP 20
--- NOTE | 2017-11-15 08:31 | CP.PCM.PN ---
Objective - Vital Signs/Intake and Output Vital Signs (last 24 hours): Temp Pulse Resp BP Pulse Ox 97.0 F L 70 20 118/60 92 L 11/15/17 06:00 11/15/17 08:16 11/15/17 06:00 11/15/17 08:16 11/15/17 06:00 Intake and Output: 11/15/17 11/15/17 06:59 18:59 Intake Total 120 Output Total 950 Balance -830 - Medications Medications: Current Medications Acetaminophen (Tylenol 325mg Tab) 650 mg PO Q6H PRN PRN Reason: Fever >100.4 F Last Admin: 11/13/17 21:11 Dose: 650 mg Acetylcysteine (Acetylcysteine 20%) 3 ml IH [id number] [facility] Last Admin: 11/15/17 07:54 Dose: 3 ml Albuterol/Ipratropium (Duoneb 3 Mg/0.5 Mg (3 Ml) Ud) 3 ml IH Q6H PRN PRN Reason: Shortness of Breath Last Admin: 11/14/17 04:05 Dose: 3 ml Alprazolam (Xanax) 0.25 mg PO HS PRN; Protocol PRN Reason: Anxiety Stop: 11/17/17 20:01 Last Admin: 11/14/17 21:42 Dose: 0.25 mg Alprazolam (Xanax) 0.25 mg PO BID PRN; Protocol PRN Reason: Anxiety Stop: 11/18/17 15:38 Last Admin: 11/14/17 13:51 Dose: 0.25 mg Arformoterol Tartrate (Brovana) 15 mcg IH [id number] [facility] Last Admin: 11/15/17 07:54 Dose: 15 mcg Atorvastatin Calcium (Lipitor) 10 mg PO DIN [facility] Last Admin: 11/13/17 18:01 Dose: 10 mg Calcium Carbonate (Caltrate) 600 mg PO BID [facility] Last Admin: 11/14/17 11:29 Dose: Not Given [facility] Stop: 11/17/17 10:01 Last Admin: 11/14/17 11:30 Dose: Not Given Doxycycline Hyclate (Doryx) 100 mg PO Q12 [facility] PRN Reason: Protocol Last Admin: 11/14/17 21:41 Dose: 100 mg Enoxaparin Sodium (Lovenox) 30 mg SC DAILY [facility] PRN Reason: Protocol Fentanyl (Fentanyl) 25 mcg IV Q5M PRN PRN Reason: Pain, moderate (4-7) Last Admin: 11/14/17 11:15 Dose: 25 mcg Folic Acid (Folic Acid) 1 mg PO BID [facility] Last Admin: 11/14/17 11:30 Dose: Not Given Cefepime HCl (Maxipime 1gm) 1 gm in 100 mls @ 100 mls/hr IVPB DAILY [facility] PRN Reason: Protocol Last Admin: 11/14/17 11:31 Dose: Not Given Metoprolol Tartrate (Lopressor) 25 mg PO BRKDIN [facility] Last Admin: 11/15/17 08:16 Dose: 25 mg Ondansetron HCl (Zofran Inj) 4 mg IVP Q6H PRN PRN Reason: Nausea/Vomiting Pantoprazole Sodium (Protonix Ec Tab) 40 mg PO DAILY [facility] Last Admin: 11/14/17 11:32 Dose: Not Given Polyethylene Glycol (Miralax) 17 gm PO BID [facility] Last Admin: 11/14/17 11:31 Dose: Not Given Potassium Phos/Sodium Phos (Neutra-Phos) 1 pkt PO TID [facility] Stop: 11/15/17 23:00 Last Admin: 11/14/17 14:06 Dose: 1 pkt Tramadol HCl (Ultram) 50 mg PO Q8 PRN PRN Reason: Pain, moderate (4-7) Last Admin: 11/14/17 13:48 Dose: 50 mg Zolpidem Tartrate (Ambien) 5 mg PO HS PRN; Protocol PRN Reason: Insomnia Last Admin: 11/14/17 21:42 Dose: 5 mg - Labs Labs: 11/15/17 06:20 11/15/17 06:20 PT 13.3 SECONDS (9.4-12.5) H 11/12/17 06:16 INR 1.15 (0.93-1.08) H 11/12/17 06:16 APTT 28.9 Seconds (25.1-36.5) 11/12/17 06:16
[2017-11-15] MEDS: Potassium & Sodium Phosphate PO SCH ×3 (09:28→17:11)
[2017-11-15] MEDS: Pantoprazole 40 mg EC Tab PO SCH (09:29)
[2017-11-15] MEDS: POLYETHYLENE GLYCOL 3350 17 GM/Dose PACKET PO SCH ×2 (09:30→17:12)
[2017-11-15] MEDS: Cefepime 1gm in NS 100ml 1 GM/100 ML BAG IVPB SCH (09:32)
--- NOTE | 2017-11-15 10:43 | RAD ---
PROCEDURE: Intraoperative Fluoroscopy. HISTORY: ORIF RT TIB FIB FINDINGS: Fluoroscopic assistance was provided for ORIF right tibial fracture. Please refer to the operative report from MINERV[facility] Noriega. 87.2 seconds of fluoro time was utilized with a radiation total cumulative dose of 06.62 mGy.
--- NOTE | 2017-11-15 10:51 | CP.PCM.PN ---
<Ingrid Ellison - Last Filed: 11/15/17 10:50> Subjective - Date & Time of Evaluation Date of Evaluation: 11/15/17 Time of Evaluation: 09:05 - Subjective Subjective: S&E at bedside, POD#1 s/p right tibia ORIF. Chart reviewed. Tolerating oral intake. No N/V or abdominal pain. No further bleeding per rectum reported, no recent BM. No acute overnight events as per nursing staff. Objective - Vital Signs/Intake and Output Vital Signs (last 24 hours): Temp Pulse Resp BP Pulse Ox 97.0 F L 70 20 118/60 92 L 11/15/17 06:00 11/15/17 08:16 11/15/17 06:00 11/15/17 08:16 11/15/17 06:00 Intake and Output: 11/15/17 11/15/17 06:59 18:59 Intake Total 120 Output Total 950 Balance -830 - Medications Medications: Current Medications Acetaminophen (Tylenol 325mg Tab) 650 mg PO Q6H PRN PRN Reason: Fever >100.4 F Last Admin: 11/13/17 21:11 Dose: 650 mg Acetylcysteine (Acetylcysteine 20%) 3 ml IH [id number] [facility] Last Admin: 11/15/17 07:54 Dose: 3 ml Albuterol/Ipratropium (Duoneb 3 Mg/0.5 Mg (3 Ml) Ud) 3 ml IH Q6H PRN PRN Reason: Shortness of Breath Last Admin: 11/14/17 04:05 Dose: 3 ml Alprazolam (Xanax) 0.25 mg PO HS PRN; Protocol PRN Reason: Anxiety Stop: 11/17/17 20:01 Last Admin: 11/14/17 21:42 Dose: 0.25 mg Alprazolam (Xanax) 0.25 mg PO BID PRN; Protocol PRN Reason: Anxiety Stop: 11/18/17 15:38 Last Admin: 11/15/17 09:31 Dose: 0.25 mg Arformoterol Tartrate (Brovana) 15 mcg IH [id number] [facility] Last Admin: 11/15/17 07:54 Dose: 15 mcg Atorvastatin Calcium (Lipitor) 10 mg PO DIN [facility] Last Admin: 11/13/17 18:01 Dose: 10 mg Calcium Carbonate (Caltrate) 600 mg PO BID [facility] Last Admin: 11/15/17 09:30 Dose: 600 mg [facility]) [facility] Stop: 11/17/17 10:01 Last Admin: 11/15/17 09:29 Dose: 8 mg Doxycycline Hyclate (Doryx) 100 mg PO Q12 [facility] PRN Reason: Protocol Last Admin: 11/15/17 09:28 Dose: 100 mg Enoxaparin Sodium (Lovenox) 30 mg SC DAILY [facility] PRN Reason: Protocol Last Admin: 11/15/17 09:27 Dose: 30 mg Fentanyl (Fentanyl) 25 mcg IV Q5M PRN PRN Reason: Pain, moderate (4-7) Last Admin: 11/14/17 11:15 Dose: 25 mcg Folic Acid (Folic Acid) 1 mg PO BID [facility] Last Admin: 11/15/17 09:28 Dose: 1 mg Cefepime HCl (Maxipime 1gm) 1 gm in 100 mls @ 100 mls/hr IVPB DAILY [facility] PRN Reason: Protocol Last Admin: 11/15/17 09:32 Dose: 100 mls/hr Metoprolol Tartrate (Lopressor) 25 mg PO BRKDIN [facility] Last Admin: 11/15/17 08:16 Dose: 25 mg Ondansetron HCl (Zofran Inj) 4 mg IVP Q6H PRN PRN Reason: Nausea/Vomiting Pantoprazole Sodium (Protonix Ec Tab) 40 mg PO DAILY [facility] Last Admin: 11/15/17 09:29 Dose: 40 mg Polyethylene Glycol (Miralax) 17 gm PO BID [facility] Last Admin: 11/15/17 09:30 Dose: 17 gm Potassium Phos/Sodium Phos (Neutra-Phos) 1 pkt PO TID [facility] Stop: 11/15/17 23:00 Last Admin: 11/15/17 09:28 Dose: 1 pkt Tramadol HCl (Ultram) 50 mg PO Q8 PRN PRN Reason: Pain, moderate (4-7) Last Admin: 11/15/17 09:31 Dose: 50 mg Zolpidem Tartrate (Ambien) 5 mg PO HS PRN; Protocol PRN Reason: Insomnia Last Admin: 11/14/17 21:42 Dose: 5 mg - Labs Labs: 11/15/17 06:20 11/15/17 06:20 PT 13.3 SECONDS (9.4-12.5) H 11/12/17 06:16 INR 1.15 (0.93-1.08) H 11/12/17 06:16 APTT 28.9 Seconds (25.1-36.5) 11/12/17 06:16 - Constitutional Appears: No Acute Distress - Head Exam Head Exam: NORMOCEPHALIC - Eye Exam Eye Exam: Normal appearance. absent: Scleral icterus - ENT Exam ENT Exam: Mucous Membranes Moist - Neck Exam Neck Exam: Normal Inspection - Respiratory Exam Respiratory Exam: NORMAL BREATHING PATTERN. absent: Respiratory Distress - Cardiovascular Exam Cardiovascular Exam: +S1, +S2 - GI/Abdominal Exam GI & Abdominal Exam: Soft, Normal Bowel Sounds. 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 Levine. <Sam Levine V - Last Filed: 11/29/17 17:33> Objective - Vital Signs/Intake and Output Vital Signs (last 24 hours): Temp Pulse Resp BP Pulse Ox 98.4 F 72 20 115/62 90 L 11/15/17 18:00 11/15/17 18:00 11/15/17 18:00 11/15/17 18:00 11/15/17 18:00 Intake and Output: 11/15/17 11/16/17 18:59 06:59 Intake Total 480 Output Total 300 Balance 180 - Labs Labs: 11/15/17 12:30 11/15/17 06:20 PT 13.3 SECONDS (9.4-12.5) H 11/12/17 06:16 INR 1.15 (0.93-1.08) H 11/12/17 06:16 APTT 28.9 Seconds (25.1-36.5) 11/12/17 06:16 Attending/Attestation - Attestation I have personally seen and examined this patient.: Yes I have fully participated in the care of the patient.: Yes I have reviewed all pertinent clinical information, including history, physical exam and plan: Yes Notes (Text): This is an addendum to GI progress report dictated by Ingrid Ellison APN.The patient was seen and examined earlier. Medical records, lab studies, imagings were reviewed. Last 24 hours events reviewed. Agreed with the above treatment plan as outlined in Ingrid Ellison APN's notes the with the addition of the following: POD#1 s/p right tibia ORIF, no acute overnight events reported. abdomen is soft and nontender no N/V or overt GI bleeding reported, Bright red blood per rectum likely secondary to internal hemorrhoids Avoid enema in this patient abdominal xray done, no acute findings, negative for obstruction Continue Miralax monitor Hgb and for overt GI bleeding, hgb has been stable on PPI on Lovenox as per oncology and orthopedics .
[2017-11-15 12:54] LABS: GRAN # 8.51 (1.4-6.5); GRAN % 94.7 % (50.0-68.0); HEMOGLOBIN 9.2 g/dL (14.0-18.0); LYMPH # 0.3 (1.2-3.4); LYMPH % 3.7 % (22.0-35.0); MEAN CORPUSCULAR HEMOGLOBIN 28.7 pg (25.0-35.0); MEAN CORPUSCULAR HGB CONC 31.5 g/dl (31.0-37.0); MEAN PLATELET VOLUME 9.3 fl (7.0-11.0); MONO # 0.1 (0.1-0.6); MONO % 1.6 % (1.0-6.0); RBC 3.21 10^6/uL (3.5-6.1); RED CELL DISTRIBUTION WIDTH 15.9 % (11.5-14.5)
--- NOTE | 2017-11-15 13:31 | PN ---
DATE: 11/15/2017 TYPE OF DICTATION: Addendum to initial progress note dictated by our nurse practitioner, Mine Yu. REASON FOR DICTATION: The patient is stable postop. We will sign off. Thank you Dr. Durbin for providing us the opportunity in taking care of the patient, Alton Monson. We are glad to follow elif. Judit Pro MD
--- NOTE | 2017-11-15 15:24 | CP.PCM.DIS ---
Provider - Provider Date of Admission: 11/08/17 20:06 Attending physician: Adolfo Durbin MD Hospital Course - Lab Results Lab Results: Most Recent Lab Values WBC 9.0 10^3/ul (4.5-11.0) D 11/15/17 12:30 RBC 3.21 10^6/uL (3.5-6.1) L 11/15/17 12:30 Hgb 9.2 g/dL (14.0-18.0) L 11/15/17 12:30 Hct 29.2 % (42.0-52.0) L 11/15/17 12:30 MCV 91.0 fl (80.0-105.0) 11/15/17 12:30 MCH 28.7 pg (25.0-35.0) 11/15/17 12:30 MCHC 31.5 g/dl (31.0-37.0) 11/15/17 12:30 RDW 15.9 % (11.5-14.5) H 11/15/17 12:30 Plt Count 284 10^3/uL (120.0-450.0) 11/15/17 12:30 MPV 9.3 fl (7.0-11.0) 11/15/17 12:30 Gran % 94.7 % (50.0-68.0) H 11/15/17 12:30 Lymph % (Auto) 3.7 % (22.0-35.0) L 11/15/17 12:30 Saline % (Auto) 1.6 % (1.0-6.0) 11/15/17 12:30 Eos % (Auto) 0.0 % (1.5-5.0) L 11/15/17 12:30 Baso % (Auto) 0.0 % (0.0-3.0) 11/15/17 12:30 Gran # 8.51 (1.4-6.5) H 11/15/17 12:30 Lymph # (Auto) 0.3 (1.2-3.4) L 11/15/17 12:30 Saline # (Auto) 0.1 (0.1-0.6) 11/15/17 12:30 Eos # (Auto) 0.0 (0.0-0.7) 11/15/17 12:30 Baso # (Auto) 0.00 K/mm3 (0.0-2.0) 11/15/17 12:30 Neutrophils % (Manual) 92 % (50.0-70.0) H 11/15/17 06:20 Lymphocytes % (Manual) 5 % (22.0-35.0) L 11/15/17 06:20 Monocytes % (Manual) 3 % (1.0-6.0) 11/15/17 06:20 Platelet Evaluation Normal (NORMAL) 11/15/17 06:20 PT 13.3 SECONDS (9.4-12.5) H 11/12/17 06:16 INR 1.15 (0.93-1.08) H 11/12/17 06:16 APTT 28.9 Seconds (25.1-36.5) 11/12/17 06:16 Sodium 133 mmol/L (132-148) 11/15/17 06:20 Potassium 3.8 mmol/L (3.6-5.0) 11/15/17 06:20 Chloride 96 mmol/L (98-107) L 11/15/17 06:20 Carbon Dioxide 34 mmol/L (21-33) H 11/15/17 06:20 Anion Gap 7 (10-20) L 11/15/17 06:20 BUN 12 mg/dL (7-21) 11/15/17 06:20 Creatinine 0.4 mg/dl (0.8-1.5) L 11/15/17 06:20 Est GFR ( Amer) > 60 11/15/17 06:20 Est GFR (Non-Af Amer) > 60 11/15/17 06:20 Random Glucose 111 mg/dL (70-110) H 11/15/17 06:20 Hemoglobin A1c 6.1 % (4.2-6.5) 11/10/17 06:30 Calcium 7.0 mg/dL (8.4-10.5) L 11/15/17 06:20 Phosphorus 2.1 mg/dL (2.5-4.5) L 11/15/17 06:20 Magnesium 2.2 mg/dL (1.7-2.2) 11/15/17 06:20 Total Bilirubin 0.4 mg/dL (0.2-1.3) 11/15/17 06:20 AST 27 U/L (17-59) 11/15/17 06:20 ALT 33 U/L (7-56) 11/15/17 06:20 Alkaline Phosphatase 75 U/L (38-126) 11/15/17 06:20 Total Protein 5.6 g/dL (5.8-8.3) L 11/15/17 06:20 Albumin 2.7 g/dL (3.0-4.8) L 11/15/17 06:20 Globulin 2.8 gm/dL 11/15/17 06:20 Albumin/Globulin Ratio 1.0 (1.1-1.8) L 11/15/17 06:20 Triglycerides 143 mg/dL (35-160) 11/10/17 06:30 Cholesterol 129 mg/dL (130-200) L 11/10/17 06:30 LDL Cholesterol Direct 71 mg/dL (0-129) 11/10/17 06:30 HDL Cholesterol 32 mg/dL (29-60) 11/10/17 06:30 TSH 3rd Generation 1.08 mIU/mL (0.46-4.68) 11/10/17 06:30 Blood Type O POSITIVE 11/13/17 06:40 Blood Type Confirm O POSITIVE 11/13/17 08:55 Antibody Screen Negative 11/13/17 06:40 Crossmatch See Detail 11/13/17 06:40 BBK History Checked No verified bt 11/13/17 06:40 Discharge Exam - Head Exam Head Exam: NORMOCEPHALIC Discharge Plan - Follow Up Plan Condition: GOOD Disposition: HOME/ ROUTINE Additional Instructions: Patient for discharge to [facility]. Patient to be admitted under Dr. Parsons at [facility]. Patient to restart all medications as prescribed. Patient to have CBC w/ diff and ANC [absolute neutrophil count] in 5 days (on 11/20/17) and to call Dr. Wolf with results on the number listed below. Patient to receive daily Neupogen for 7 days (last day on 11/22/17) Patient to follow up at Dr. Wolf office in [address] Wofl contact
--- NOTE | 2017-11-15 15:55 | CP.PCM.PN ---
Objective - Vital Signs/Intake and Output Vital Signs (last 24 hours): Temp Pulse Resp BP Pulse Ox 97.0 F L 70 20 118/60 92 L 11/15/17 06:00 11/15/17 08:16 11/15/17 06:00 11/15/17 08:16 11/15/17 06:00 Intake and Output: 11/15/17 11/15/17 06:59 18:59 Intake Total 120 480 Output Total 950 300 Balance -830 180 - Medications Medications: Current Medications Acetaminophen (Tylenol 325mg Tab) 650 mg PO Q6H PRN PRN Reason: Fever >100.4 F Last Admin: 11/13/17 21:11 Dose: 650 mg Acetylcysteine (Acetylcysteine 20%) 3 ml IH [id number] [facility] Last Admin: 11/15/17 07:54 Dose: 3 ml Albuterol/Ipratropium (Duoneb 3 Mg/0.5 Mg (3 Ml) Ud) 3 ml IH Q6H PRN PRN Reason: Shortness of Breath Last Admin: 11/14/17 04:05 Dose: 3 ml Alprazolam (Xanax) 0.25 mg PO HS PRN; Protocol PRN Reason: Anxiety Stop: 11/17/17 20:01 Last Admin: 11/14/17 21:42 Dose: 0.25 mg Alprazolam (Xanax) 0.25 mg PO BID PRN; Protocol PRN Reason: Anxiety Stop: 11/18/17 15:38 Last Admin: 11/15/17 09:31 Dose: 0.25 mg Arformoterol Tartrate (Brovana) 15 mcg IH [id number] [facility] Last Admin: 11/15/17 07:54 Dose: 15 mcg Atorvastatin Calcium (Lipitor) 10 mg PO DIN [facility] Last Admin: 11/13/17 18:01 Dose: 10 mg Calcium Carbonate (Caltrate) 600 mg PO BID [facility] Last Admin: 11/15/17 09:30 Dose: 600 mg [facility]) [facility] Stop: 11/17/17 10:01 Last Admin: 11/15/17 09:29 Dose: 8 mg Doxycycline Hyclate (Doryx) 100 mg PO Q12 FRANKY PRN Reason: Protocol Last Admin: 11/15/17 09:28 Dose: 100 mg Enoxaparin Sodium (Lovenox) 30 mg SC DAILY [facility] PRN Reason: Protocol Last Admin: 11/15/17 09:27 Dose: 30 mg Fentanyl (Fentanyl) 25 mcg IV Q5M PRN PRN Reason: Pain, moderate (4-7) Last Admin: 11/14/17 11:15 Dose: 25 mcg Folic Acid (Folic Acid) 1 mg PO BID [facility] Last Admin: 11/15/17 09:28 Dose: 1 mg Metoprolol Tartrate (Lopressor) 25 mg PO BRKDIN [facility] Last Admin: 11/15/17 08:16 Dose: 25 mg Nystatin (Nystatin Oral Susp) 5 ml PO QID [facility] Ondansetron HCl (Zofran Inj) 4 mg IVP Q6H PRN PRN Reason: Nausea/Vomiting Pantoprazole Sodium (Protonix Ec Tab) 40 mg PO DAILY [facility] Last Admin: 11/15/17 09:29 Dose: 40 mg Polyethylene Glycol (Miralax) 17 gm PO BID [facility] Last Admin: 11/15/17 09:30 Dose: 17 gm Potassium Phos/Sodium Phos (Neutra-Phos) 1 pkt PO TID [facility] Stop: 11/15/17 23:00 Last Admin: 11/15/17 13:02 Dose: 1 pkt Tramadol HCl (Ultram) 50 mg PO Q8 PRN PRN Reason: Pain, moderate (4-7) Last Admin: 11/15/17 09:31 Dose: 50 mg Zolpidem Tartrate (Ambien) 5 mg PO HS PRN; Protocol PRN Reason: Insomnia Last Admin: 11/14/17 21:42 Dose: 5 mg - Labs Labs: 11/15/17 12:30 11/15/17 06:20 PT 13.3 SECONDS (9.4-12.5) H 11/12/17 06:16 INR 1.15 (0.93-1.08) H 11/12/17 06:16 APTT 28.9 Seconds (25.1-36.5) 11/12/17 06:16
--- NOTE | 2017-11-15 15:58 | PN ---
DATE: 11/15/2017 FIRST DAY POSTOP REPORT SUBJECTIVE: A 72-year-old male in room 372, bed 1. He has much less pain to the right tibia where he had a pathologic fracture of distal proximal right tibia. Underwent IM roding that was locked and it is holding the tibia secure so that he eventually can walk without undue pain as much as he continues on with the radiation therapy and chemotherapy. I told he will need intensive therapy before he goes home so he does not fall, so he is planning on going to [facility] for subacute rehab and I will follow him there and he is allowed to put weight on that right tibia, do range of motion when the wound is healed better in about 10 days, but in the meantime he can walk with a walker, weightbearing to tolerance. I will follow him at the subacute rehab where he will go for active and passive range of motion of that right lower extremity and ambulation with a walker, weightbearing to tolerance and stretching exercises and endurance exercise. Dayne Fuller DO
--- NOTE | 2017-11-15 16:12 | PN ---
DATE: 11/15/2017 PULMONARY PROGRESS NOTE REFERRING PHYSICIAN: Dr. Wolf. SUBJECTIVE: He is lying in the bed, head at 45 degrees. Complaining about dry mouth, has some thrush. No nausea,no vomiting, no diarrhea. Right leg pain is better. PHYSICAL EXAMINATION: GENERAL: In no acute distress. VITAL SIGNS: Temperature is 98, heart rate is 70, respiratory rate is 20, blood pressure 118/60, pulse ox 92% on 2 liters nasal cannula. HEENT: Dry mucous membrane, has some thrush. NECK: Supple. No JVD. LUNGS: Have a fair airflow with scattered rhonchi. HEART: S1 and S2. ABDOMEN: Soft, nontender. No organomegaly. EXTREMITIES: Right leg has Benjamin wraps and dressing. NEUROLOGIC: Awake, alert, and follows simple command. MEDICATIONS: He is on Mucomyst inhaled twice a day, Ambien 5 mg at bedtime p.r.n., Brovana inhaled twice a day, calcium carbonate 600 mg twice a day, Decadron 8 mg twice a day, doxycycline 100 mg twice a day, DuoNeb every 6 hours p.r.n., fentanyl patch IV p.r.n. basis, folic acid 1 mg twice a day, Lipitor 10 mg daily, metoprolol tartrate 25 mg twice a day, Lovenox 30 mg daily, MiraLax 17 g daily, Neutra-Phos 1 packet 3 times a day, Protonix 40 mg daily, Tylenol p.r.n. basis, Ultram 50 mg every 8 hours seven p.r.n., Xanax 0.25 mg at bedtime p.r.n., and Zofran p.r.n. basis. LABORATORY DATA: Shows hemoglobin 9.2, hematocrit 29.2, WBC 9, platelet count is 284. Sodium 133, potassium 3.8, chloride 96, bicarbonate 34, BUN 12, creatinine 0.4, glucose 111, calcium is 7, phosphorus 2.1. AST 27, ALT 33, alkaline phosphatase is 75. Albumin is 2.7. 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 Spoke to nursing staff. We will humidify, supplement oxygen. Continue antibiotics. Continue steroids. Aspiration precaution. Encourage p.o. intake. We will add an oral suspension, physical therapy. Thank you and we will follow with you. Judit Dent MD
[2017-11-15] MEDS ORDERED: Nystatin 100,000 Units/ml Oral Susp 5 ml UD PO SCH (18:00)
[2017-11-15 18:54] VITALS: BP 115/62; PULSE 72; TEMP 98.4; O2SAT 90
[2017-11-15] MEDS: Albuterol-Ipratrop 3 mg / 0.5 (3 ml) UD IH PRN (19:40)
--- NOTE | 2017-11-15 21:32 | CP.PCM.DIS ---
Provider - Provider Date of Admission: 11/08/17 20:06 Attending physician: Adolfo Durbin MD Primary care physician: Ramakrishna Consults: Ortho: Mastromonaco Marysolc: Silvia IR: gennaro Pulm: Jailene Cardio: Haleigh GI: Abner Time Spent in preparation of Discharge (in minutes): 45 Hospital Course - Lab Results Lab Results: Most Recent Lab Values WBC 9.0 10^3/ul (4.5-11.0) D 11/15/17 12:30 RBC 3.21 10^6/uL (3.5-6.1) L 11/15/17 12:30 Hgb 9.2 g/dL (14.0-18.0) L 11/15/17 12:30 Hct 29.2 % (42.0-52.0) L 11/15/17 12:30 MCV 91.0 fl (80.0-105.0) 11/15/17 12:30 MCH 28.7 pg (25.0-35.0) 11/15/17 12:30 MCHC 31.5 g/dl (31.0-37.0) 11/15/17 12:30 RDW 15.9 % (11.5-14.5) H 11/15/17 12:30 Plt Count 284 10^3/uL (120.0-450.0) 11/15/17 12:30 MPV 9.3 fl (7.0-11.0) 11/15/17 12:30 Gran % 94.7 % (50.0-68.0) H 11/15/17 12:30 Lymph % (Auto) 3.7 % (22.0-35.0) L 11/15/17 12:30 Billings % (Auto) 1.6 % (1.0-6.0) 11/15/17 12:30 Eos % (Auto) 0.0 % (1.5-5.0) L 11/15/17 12:30 Baso % (Auto) 0.0 % (0.0-3.0) 11/15/17 12:30 Gran # 8.51 (1.4-6.5) H 11/15/17 12:30 Lymph # (Auto) 0.3 (1.2-3.4) L 11/15/17 12:30 [place] # (Auto) 0.1 (0.1-0.6) 11/15/17 12:30 Eos # (Auto) 0.0 (0.0-0.7) 11/15/17 12:30 Baso # (Auto) 0.00 K/mm3 (0.0-2.0) 11/15/17 12:30 Neutrophils % (Manual) 92 % (50.0-70.0) H 11/15/17 06:20 Lymphocytes % (Manual) 5 % (22.0-35.0) L 11/15/17 06:20 Monocytes % (Manual) 3 % (1.0-6.0) 11/15/17 06:20 Platelet Evaluation Normal (NORMAL) 11/15/17 06:20 PT 13.3 SECONDS (9.4-12.5) H 11/12/17 06:16 INR 1.15 (0.93-1.08) H 11/12/17 06:16 APTT 28.9 Seconds (25.1-36.5) 11/12/17 06:16 Sodium 133 mmol/L (132-148) 11/15/17 06:20 Potassium 3.8 mmol/L (3.6-5.0) 11/15/17 06:20 Chloride 96 mmol/L (98-107) L 11/15/17 06:20 Carbon Dioxide 34 mmol/L (21-33) H 11/15/17 06:20 Anion Gap 7 (10-20) L 11/15/17 06:20 BUN 12 mg/dL (7-21) 11/15/17 06:20 Creatinine 0.4 mg/dl (0.8-1.5) L 11/15/17 06:20 Est GFR ( Amer) > 60 11/15/17 06:20 Est GFR (Non-Af Amer) > 60 11/15/17 06:20 Random Glucose 111 mg/dL (70-110) H 11/15/17 06:20 Hemoglobin A1c 6.1 % (4.2-6.5) 11/10/17 06:30 Calcium 7.0 mg/dL (8.4-10.5) L 11/15/17 06:20 Phosphorus 2.1 mg/dL (2.5-4.5) L 11/15/17 06:20 Magnesium 2.2 mg/dL (1.7-2.2) 11/15/17 06:20 Total Bilirubin 0.4 mg/dL (0.2-1.3) 11/15/17 06:20 AST 27 U/L (17-59) 11/15/17 06:20 ALT 33 U/L (7-56) 11/15/17 06:20 Alkaline Phosphatase 75 U/L (38-126) 11/15/17 06:20 Total Protein 5.6 g/dL (5.8-8.3) L 11/15/17 06:20 Albumin 2.7 g/dL (3.0-4.8) L 11/15/17 06:20 Globulin 2.8 gm/dL 11/15/17 06:20 Albumin/Globulin Ratio 1.0 (1.1-1.8) L 11/15/17 06:20 Triglycerides 143 mg/dL (35-160) 11/10/17 06:30 Cholesterol 129 mg/dL (130-200) L 11/10/17 06:30 LDL Cholesterol Direct 71 mg/dL (0-129) 11/10/17 06:30 HDL Cholesterol 32 mg/dL (29-60) 11/10/17 06:30 TSH 3rd Generation 1.08 mIU/mL (0.46-4.68) 11/10/17 06:30 Blood Type O POSITIVE 11/13/17 06:40 Blood Type Confirm O POSITIVE 11/13/17 08:55 Antibody Screen Negative 11/13/17 06:40 Crossmatch See Detail 11/13/17 06:40 BBK History Checked No verified bt 11/13/17 06:40 - Hospital Course Hospital Course: Upon Admission 72yo male recently diagnosed with lung adenoca with mets, on radiation, presented to [facility] 10/2017 with pain in his right ankle. Patient recently fell while getting onto the van and was began to experience pain. x-ray showed distal tibial lytic lesion of RLE. CT RLE showed permeative lesion with periosteal reaction along the entire diaphysis of the right tibia with areas of more akin lie cysts and akin cortical destruction and expansion in the most distal aspect of the lesion. 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 Thee is some soft tissue density extending beyond confines of the bone about more distal lucent lesion. Ortho Dr. Fuller was consulted for surgical intervention. Cardio was consulted for risk stratification and IR was consulted for port placement. On On 11/14 patient had intramedullary tibial nail, R tibial metastatic lesino and fracture with a Biomet tibial catrachito 9mm and 300mm long placed. Patient tolerated procedure well and started working with physical therapy. PT deemed patient required rehab upon discharge. On day of discharge patient was deemed stable for transfer to [facility] under Dr. Parsons's service. Patient to restart all medications as prescribed. Patient to have CBC w/ diff and ANC [absolute neutrophil count] in 5 days (on 11/20/17) and to call Dr. Wolf with results. Patient to receive daily Neupogen for 7 days (last day on 11/22/17) and to follow up at Dr. Wolf office in 2 weeks. Discharge Exam - Head Exam Head Exam: NORMOCEPHALIC - Eye Exam Eye Exam: EOMI, Normal appearance. absent: Conjunctival injection, Scleral icterus - ENT Exam ENT Exam: Mucous Membranes Moist - Neck Exam Neck exam: Full Rom - Respiratory Exam Respiratory Exam: NORMAL BREATHING PATTERN. absent: Accessory Muscle Use, Respiratory Distress - Cardiovascular Exam Cardiovascular Exam: REGULAR RHYTHM, +S1, +S2 - GI/Abdominal Exam GI & Abdominal Exam: Normal Bowel Sounds, Soft. absent: Firm, Tenderness - Rectal Exam Rectal Exam: Deferred - Extremities Exam Additional comments: RLE wrapped - Neurological Exam Neurological exam: Alert, CN II-XII Intact, Oriented x3 - Skin Skin Exam: Dry, Intact, Pallor Discharge Plan - Discharge Medications Prescriptions: Filgrastim [Neupogen] 480 mcg IJ DAILY #7 syringe - Follow Up Plan Condition: FAIR Disposition: TRANSF TO SNF Instructions: Lung Cancer (DC), Open Reduction and Internal Fixation Surgery ( DC) Additional Instructions: Patient for discharge to [facility]. Patient to be admitted under Dr. Parsons at [facility]. Patient to restart all medications as prescribed. Patient to have CBC w/ diff and ANC [absolute neutrophil count] in 5 days (on 11/20/17) and to call Dr. Wolf with results on the number listed below. Patient to receive daily Neupogen for 7 days (last day on 11/22/17) Patient to follow up at Dr. Wolf office in [address] Wolf contact Referrals: Artem Wolf MD [Staff Provider] -
== END 2017-11-15 20:41 | DRG 493 ==
LOC: ED 13:40 → ERH 20:06 → 3RSO 22:59
PROVIDERS: ADMIT Family Medicine; ATTEND Family Medicine
PROC: 05HM33Z Insertion of Infusion Device into Right Internal Jugular Vein, Percutaneous Approach (ICD-10-PCS; 2017-11-10)
PROC: B543ZZA Ultrasonography of Right Jugular Veins, Guidance (ICD-10-PCS; 2017-11-10)
PROC: B513ZZA Fluoroscopy of Right Jugular Veins, Guidance (ICD-10-PCS; 2017-11-10)
PROC: 3E04305 Introduction of Other Antineoplastic into Central Vein, Percutaneous Approach (ICD-10-PCS; 2017-11-13)
PROC: 0QHG36Z Insertion of Intramedullary Internal Fixation Device into Right Tibia, Percutaneous Approach (ICD-10-PCS; principal; 2017-11-14 07:30)
DX: M84.461A Pathological fracture, right tibia, initial encounter for fracture (principal); C34.90 Malignant neoplasm of unspecified part of unspecified bronchus or lung; C77.9 Secondary and unspecified malignant neoplasm of lymph node, unspecified; C79.51 Secondary malignant neoplasm of bone; J44.1 Chronic obstructive pulmonary disease with (acute) exacerbation; J98.11 Atelectasis; K62.5 Hemorrhage of anus and rectum; B37.9 Candidiasis, unspecified; F03.90 Unspecified dementia, unspecified severity, without behavioral disturbance, psychotic disturbance, mood disturbance, and anxiety; F41.9 Anxiety disorder, unspecified; K64.8 Other hemorrhoids; R13.12 Dysphagia, oropharyngeal phase; R62.7 Adult failure to thrive; Z87.891 Personal history of nicotine dependence; Z92.3 Personal history of irradiation; Z85.46 Personal history of malignant neoplasm of prostate

== ENCOUNTER 2017-12-11 16:47 | Inpatient (IN) | payer MEDICARE, BC ==
[2017-12-11 16:47] VITALS: BMI 19.9
[2017-12-11] MEDS ORDERED: Sodium Chloride 0.9% 1,000 ML IV SCH (17:15)
[2017-12-11] MEDS ORDERED: Sodium Chloride 0.9% 1,000 ML IV STA (17:28)
--- NOTE | 2017-12-11 17:38 | ED PDOC ---
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 Bloodwork was reviewed from earlier, white count is 14. Upon arrival, patient oxygen is 90% on 3 liters and 99% on non-breather. Patient denies any pain, fever, chills, chest pain, vomiting, abdominal pain, diarrhea, or any other complaints. PMD: Dr. Wolf Time/Duration: Prior to Arrival Symptom Onset: Sudden Symptom Course: Unchanged Activities at Onset: Light Context: Home Past Medical History - Provider Review Nursing Documentation Reviewed: Yes - Infectious Disease Hx of Infectious Diseases: None - Cardiac Hx Cardiac Disorders: No - Pulmonary Hx Respiratory Disorders: No Hx Lung Cancer: Yes (stage 4) - HEENT Hx HEENT Disorder: No - Renal Hx Renal Disorder: No - Endocrine/Metabolic Hx Endocrine Disorders: No - Hematological/Oncological Hx Blood Disorders: Yes Hx Blood Transfusion Reaction: No Hx Cancer: Yes Hx Chemotherapy: Yes - Integumentary Hx Dermatological Disorder: No - Musculoskeletal/Rheumatological Hx Musculoskeletal Disorders: No Hx Falls: Yes (mechanical fall) - Gastrointestinal Hx Gastrointestinal Disorders: No - Genitourinary/Gynecological Hx Genitourinary Disorders: Yes - Psychiatric Hx Psychophysiologic Disorder: No Hx Substance Use: No - Anesthesia Hx Anesthesia Reactions: No Hx Malignant Hyperthermia: No - Suicidal Assessment Feels Threatened In Home Enviroment: No Family/Social History - Physician Review Nursing Documentation Reviewed: Yes Family/Social History: Unknown Family HX Smoking Status: Former Smoker Hx Alcohol Use: No Hx Substance Use: No Allergies/Home Meds Allergies/Adverse Reactions: Allergies aspirin Adverse Reaction (Intermediate, Verified 11/06/17 11:48) NAUSEA STOMACH ACHE Home Medications: Home Meds Medication Instructions Recorded Confirmed ALPRAZolam [Xanax] 0.25 mg PO Q12 PRN 11/29/17 11/29/17 Acetaminophen [Tylenol 325mg tab] 650 mg PO Q6H PRN 11/29/17 11/29/17 Dimethicone [Proshield Plus Skin 1 applic TOP DAILY 11/29/17 11/29/17 Protectant] Docusate [Colace] 200 mg PO BID 11/29/17 11/29/17 Dronabinol [Marinol] 2.5 mg PO BID 11/29/17 11/29/17 Mag&Al/Simet/Diphen/Lido [First 10 ml PO Q4 PRN 11/29/17 11/29/17 Magic Mouthwash] Metoprolol Tartrate [Lopressor] 25 mg PO BID 11/29/17 11/29/17 Ondansetron HCl [Zofran] 4 mg PO Q6 PRN 11/29/17 11/29/17 Petrolatum,White/Lanolin [Vitamin 1 applic TOP TID 11/29/17 11/29/17 A and D Ointment] Sertraline [Zoloft] 25 mg PO DAILY 11/29/17 11/29/17 Silver Sulfadiazine 1% [Silvadene 1 applic TOP DAILY 11/29/17 11/29/17 1%] Review of Systems - Physician Review All systems were reviewed & negative as marked: Yes - Review of Systems Constitutional: Normal Eyes: Normal ENT: Normal Respiratory: Normal. absent: SOB, Cough Cardiovascular: Normal. absent: Chest Pain Gastrointestinal: Normal. absent: Abdominal Pain, Diarrhea, Nausea, Vomiting Genitourinary Male: Normal. absent: Dysuria, Frequency Musculoskeletal: Normal. absent: Back Pain, Neck Pain Skin: Normal. absent: Rash Neurological: Other (lightheadedness) Endocrine: Normal Hemo/Lymphatic: Normal Psychiatric: Normal Physical Exam Vital Signs Reviewed: Yes Vital Signs Temp Pulse Resp BP Pulse Ox 12/11/17 17:18 98.5 F 83 20 107/56 L 90 L Temperature: Afebrile Blood Pressure: Hypotensive Pulse: Regular Respiratory Rate: Normal Appearance: Positive for: Well-Appearing, Non-Toxic, Comfortable Pain Distress: None Mental Status: Positive for: Alert and Oriented X 3 - Systems Exam Head: Present: Atraumatic, Normocephalic Pupils: Present: PERRL Extroacular Muscles: Present: EOMI Conjunctiva: Present: Normal Mouth: Present: Dry Neck: Present: Normal Range of Motion. No: MIDLINE TENDERNESS, Paraspinal Tenderness Respiratory/Chest: Present: Clear to Auscultation, Decreased Breath Sounds ( decreased breath sounds left side). No: Respiratory Distress, Accessory Muscle Use Cardiovascular: Present: Regular Rate and Rhythm, Normal S1, S2. No: Murmurs Abdomen: No: Tenderness, Distention, Peritoneal Signs Back: Present: Normal Inspection Upper Extremity: Present: Normal Inspection. No: Cyanosis, Edema Lower Extremity: Present: Other (surgical scar rt knee, clean, dr, and intact). No: Edema, Normal ROM (mild pain with movement) Neurological: Present: GCS=15, CN II-XII Intact, Speech Normal Skin: Present: Warm, Dry, Normal Color. No: Rashes Psychiatric: Present: Alert, Oriented x 3, Normal Insight, Normal Concentration Medical Decision Making ED Course and Treatment: 12/11/17 17:43 Impression: 72 year old male presents to the Emergency department sent by PMD for lightheadedness and failure to thrive. Plan: -- VBG -- CXR -- Blood Culture -- Urine Culture -- UA -- Sodium Chloride -- Reassess and disposition Progress Notes: 12/11/17 18:35 Chest X-ray reviewed, shows: IMPRESSION: Probable postobstructive left upper lobe atelectasis, likely related to known left lung tumor, which is not discretely visualized. Small left pleural effusion. 12/11/2017 Treated with Cefepime IV due to WBC 14. Patient's labs were reviewed from today completed by Dr. Wolf. CBC WBC 14, H/ H 01/17. I discussed the case with Dr. Wolf who would like patient admitted to [facility], . He states baseline is 90% on 3L. Patient is not is respiratory distress. Family is at baseline and understands plan. - Lab Interpretations Lab Results: Lab Results 12/11/17 17:40: pO2 78 H, VBG pH 7.34, VBG pCO2 61.0 H, VBG HCO3 32.9 H, VBG Total CO2 34.8 H, VBG O2 Sat (Calc) 97.3 H, VBG Base Excess 5.2 H, VBG Potassium 3.6, Sodium 136.0, Chloride 103.0, Glucose 135 H, Lactate 0.7, FiO2 21.0, Venous Blood Potassium 3.6 - RAD Interpretation Radiology Orders: 12/11/17 17:15 CXR [CHEST PORTABLE] [RAD] Stat - Medication Orders Current Medication Orders: Cefepime HCl (Maxipime 2gm) 2 gm in 100 mls @ 100 mls/hr IVPB STAT STA PRN Reason: Protocol Stop: 12/11/17 19:02 Discontinued Medications Sodium Chloride (Sodium Chloride 0.9%) 1,000 mls @ 999 mls/hr IV .Q1H1M STA Stop: 12/11/17 18:28 Last Admin: 12/11/17 17:47 Dose: 999 mls/hr eMAR Start Stop Document 12/11/17 17:47 HI (Rec: 12/11/17 17:48 HI [id number]) Intravenous Solution Start Date 12/11/17 Start Time 15:40 - Scribe Statement The provider has reviewed the documentation as recorded by the Scribe Larisa Alejandro All medical record entries made by the Scribe were at my direction and personally dictated by me. I have reviewed the chart and agree that the record accurately reflects my personal performance of the history, physical exam, medical decision making, and the department course for this patient. I have also personally directed, reviewed, and agree with the discharge instructions and disposition. Disposition/Present on Arrival - Present on Arrival Any Indicators Present on Arrival: Yes History of DVT/PE: No History of Uncontrolled Diabetes: No Urinary Catheter: No History of Decub. Ulcer: Yes History Surgical Site Infection Following: None - Disposition Have Diagnosis and Disposition been Completed?: Yes Diagnosis: Failure to thrive, Lung cancer, Dehydration Disposition Time: 18:51 Patient Plan: Admission Condition: FAIR Forms: [employer] (Welsh)
[2017-12-11 18:03] LABS: VENOUS BLOOD GAS BASE EXCESS 5.2 mmol/L (0.0-2.0); VENOUS BLOOD GAS PO2 78 mm/Hg (30-55); VENOUS BLOOD PH 7.34 (7.32-7.43)
[2017-12-11] MEDS ORDERED: Cefepime IV 2 gm in NS 2 GM/100 ML BAG IVPB STA (18:03)
--- NOTE | 2017-12-11 18:15 | RAD ---
Date of service: 12/11/2017 HISTORY: r/o pna COMPARISON: Chest radiograph dated 11/12/2017. FINDINGS: LUNGS: Probable postobstructive left upper lobe atelectasis. Left lung tumor not discretely visualized. PLEURA: Small left pleural effusion. No pneumothorax apparent. CARDIOVASCULAR: Atherosclerotic aortic calcifications. Cardiomediastinal silhouette unchanged. OSSEOUS STRUCTURES: Unchanged. VISUALIZED UPPER ABDOMEN: Normal. OTHER FINDINGS: Leftward tracheal deviation redemonstrated. Right internal jugular access chest port, unchanged. IMPRESSION: Probable postobstructive left upper lobe atelectasis, likely related to known left lung tumor, which is not discretely visualized. Small left pleural effusion.
[2017-12-11] MEDS: Dextrose 5%/0.45% NS 1,000 ML IV SCH (22:30)
[2017-12-12] MEDS: Pantoprazole 40 mg EC Tab PO SCH (06:01)
--- NOTE | 2017-12-12 07:15 | CP.PCM.CON ---
History of Present Illness - History of Present Illness History of Present Illness: Doug Varner DO, IM Resident PGY-1 Hematology/Oncology Consultation Note for Dr. Wolf CC: Failure to thrive HPI: Mr. Monson is a 72 year old male with PMH of stage IV NSCLC (with bony metastases, diagnosed last month, treated with palliative radiation by Dr. Vega) , COPD, R tibial pathological fx, sacral decubitus ulcer stage IV who presented to the outpatient infusion center yesterday for treatment. He had been treated with carboplatin 385 and avastin 800 since October. He was admitted for dizziness and failure to thrive. Patient denies any fever, chills, nausea/vomiting, chest pain, SOB, cough, wheezing, abdominal pain, or any other complaints at this time. PMD: Dr. Wolf PMH: NSCLC stage IV, COPD, R tibial pathologic fracture, sacral decubitus ulcer PSH: Lung bx, prostate bx, thoracentesis Allergies: Aspirin Fam Hx: non-contributory Soc Hx: former 50 pack year smoker, former occasional alcohol use, denies using any other drugs. Review of Systems - Review of Systems Review of Systems: A 12 point ROS was reviewed with patient and negative except as stated in HPI Past Patient History - Infectious Disease Hx of Infectious Diseases: None - Past Social History Smoking Status: Former Smoker - CARDIAC Hx Cardiac Disorders: No - PULMONARY Hx Respiratory Disorders: No - NEUROLOGICAL Hx Neurological Disorder: No - HEENT Hx HEENT Problems: No - RENAL Hx Chronic Kidney Disease: No - ENDOCRINE/METABOLIC Hx Endocrine Disorders: No - HEMATOLOGICAL/ONCOLOGICAL Hx Blood Disorders: Yes Hx Cancer: Yes Hx Chemotherapy: Yes - INTEGUMENTARY Hx Dermatological Problems: No - MUSCULOSKELETAL/RHEUMATOLOGICAL Hx Musculoskeletal Disorders: Yes Hx Falls: Yes (mechanical fall) - GASTROINTESTINAL Hx Gastrointestinal Disorders: No - GENITOURINARY/GYNECOLOGICAL Hx Genitourinary Disorders: No - PSYCHIATRIC Hx Psychophysiologic Disorder: Yes Hx Anxiety: Yes - SURGICAL HISTORY Hx Surgeries: Yes Other/Comment: 11/14/17: right tibial nail and catrachito placement - ANESTHESIA Hx Anesthesia Reactions: No Hx Malignant Hyperthermia: No Meds Home Medications: Home Medication List Medication Instructions Recorded Confirmed Type Dronabinol [Marinol] 5 mg PO BID #0 12/11/17 Rx Metoprolol Tartrate [Lopressor] 25 mg PO BID #0 12/11/17 Rx Allergies/Adverse Reactions: Allergies Allergy/AdvReac Type Severity Reaction Status Date / Time aspirin AdvReac Intermediate NAUSEA Verified 11/06/17 11:48 - Medications Medications: Current Medications Acetaminophen (Tylenol 325mg Tab) 650 mg PO Q6H PRN PRN Reason: PAIN/FEVER Acetylcysteine (Acetylcysteine 20%) 3 ml IH [id number] Albuterol/Ipratropium (Duoneb 3 Mg/0.5 Mg (3 Ml) Ud) 3 ml IH Q6H PRN PRN Reason: Shortness of Breath Alprazolam (Xanax) 0.25 mg PO Q12 PRN; Protocol PRN Reason: Anxiety Stop: 12/18/17 22:23 Alprazolam (Xanax) 0.25 mg PO HS PRN; Protocol PRN Reason: Anxiety Stop: 12/19/17 22:01 Arformoterol Tartrate (Brovana) 15 mcg IH [id number] [facility] Atorvastatin Calcium (Lipitor) 10 mg PO DIN [facility] Calcium Carbonate (Caltrate) 600 mg PO BID [facility] Docusate Sodium (Colace) 200 mg PO BID [facility] Dronabinol (Marinol) 2.5 mg PO BID [facility] Folic Acid (Folic Acid) 1 mg PO BID [facility] Dextrose/Sodium Chloride (Dextrose 5%/0.45% Ns 1000 Ml) 1,000 mls @ 85 mls/hr IV .[id number] [facility] Last Admin: 12/11/17 22:30 Dose: 85 mls/hr Metoprolol Tartrate (Lopressor) 25 mg PO BID [facility] Nystatin (Nystatin Oral Susp) 5 ml PO TID [facility] Pantoprazole Sodium (Protonix Ec Tab) 40 mg PO 0600 [facility] Last Admin: 12/12/17 06:01 Dose: 40 mg Polyethylene Glycol (Miralax) 17 gm PO BID [facility] Silver Sulfadiazine (Silvadene 1% 25 Gm) 0 gm TP DAILY [facility] Zolpidem Tartrate (Ambien) 5 mg PO HS PRN; Protocol PRN Reason: Insomnia Physical Exam - Constitutional Appears: No Acute Distress, Cachectic, Chronically Ill - Head Exam Head Exam: ATRAUMATIC, NORMAL INSPECTION, NORMOCEPHALIC - Eye Exam Eye Exam: Normal appearance, PERRL - ENT Exam ENT Exam: Mucous Membranes Dry - Neck Exam Neck exam: Positive for: Full Rom - Respiratory Exam Respiratory Exam: Decreased Breath Sounds. absent: Accessory Muscle Use, Rales , Rhonchi, Wheezes - Cardiovascular Exam Cardiovascular Exam: REGULAR RHYTHM, RRR, +S1, +S2. absent: Diastolic murmur, Gallop, Rubs, Systolic Murmur - GI/Abdominal Exam GI & Abdominal Exam: Normal Bowel Sounds, Soft. absent: Guarding, Rebound - Extremities Exam Extremities exam: Positive for: normal capillary refill, pedal pulses present. Negative for: joint swelling, pedal edema - Neurological Exam Neurological exam: Alert - Skin Skin Exam: Dry, Intact Results - Vital Signs Recent Vital Signs: Last Vital Signs Temp 98.7 F 12/11/17 23:05 Pulse 71 12/12/17 06:00 Resp 18 12/11/17 23:05 BP 103/48 L 12/11/17 23:05 Pulse Ox 95 12/11/17 20:30 - Labs Result Diagrams: 12/12/17 12:45 12/12/17 12:45 Assessment & Plan - Assessment and Plan (Free Text) Assessment: Mr. Monson is a 72 year old male with PMH of of stage IV NSCLC (with bony metastases, diagnosed last month, treated with palliative radiation by Dr. Vega) , COPD, R tibial pathological fx, sacral decubitus ulcer stage IV admitted for failure to thrive. Plan: Failure to Thrive -Likely secondary to worsening tumor burden, decubitus ulcer -Dietary consulted -Swallow/speech evaluation ordered -Psychiatry evaluation for possible depression ordered -Ensure clear three times a day as much as he can tolerate -Marinol ordered with meals -Continue xanax BID and HS for patient anxiety Decubitcus Ulcer -Wound consult ordered -Patient difficult to turn as he has R tibial fracture and bony metastases -Continue wound care and turn as much as possible Hypokalemia -Repleting with oral K solution Normocytic anemia -Likely secondary to anemia of chronic disease -Will continue to monitor, consider transfusion if needed Case and plan were reviewed and discussed in detail with my attending physician Dr. Maryann Varner DO IM Resident PGY-1
[2017-12-12] MEDS: Acetylcysteine 20% Inhal Soln (4ml) IH SCH ×2 (07:39→19:27)
[2017-12-12] MEDS: Arformoterol 15 mcg/2 ml Inh Sol IH SCH ×2 (07:39→19:27)
[2017-12-12] MEDS: Albuterol-Ipratrop 3 mg / 0.5 (3 ml) UD IH PRN ×2 (07:39→19:27)
--- NOTE | 2017-12-12 09:43 | CP.PCM.CON ---
History of Present Illness - History of Present Illness History of Present Illness: Mr Monson is a 72 year old gentleman who is known to our department. He received palliative radiation to the left lung in October 2017. He also had a pathologic fracture of the right tibia for which he underwent ORIF. He was admitted with failure to thrive as well as with a decubitus and shortness of breath. He states that he has not been eating well. He has generalized weakness. A CXR revealed postobstructive left upper lobe atelectasis. Review of Systems - Constitutional Constitutional: Fatigue, Weight Loss, Weakness Past Patient History - Infectious Disease Hx of Infectious Diseases: None - Past Social History Smoking Status: Former Smoker Alcohol: None - CARDIAC Hx Cardiac Disorders: No - PULMONARY Hx Respiratory Disorders: No - NEUROLOGICAL Hx Neurological Disorder: No - HEENT Hx HEENT Problems: No - RENAL Hx Chronic Kidney Disease: No - ENDOCRINE/METABOLIC Hx Endocrine Disorders: No - HEMATOLOGICAL/ONCOLOGICAL Hx Blood Disorders: Yes Hx Cancer: Yes Hx Chemotherapy: Yes - INTEGUMENTARY Hx Dermatological Problems: No - MUSCULOSKELETAL/RHEUMATOLOGICAL Hx Musculoskeletal Disorders: Yes Hx Degenerative Joint Disease: Yes - GASTROINTESTINAL Hx Gastrointestinal Disorders: No - GENITOURINARY/GYNECOLOGICAL Hx Genitourinary Disorders: No - PSYCHIATRIC Hx Psychophysiologic Disorder: Yes Hx Anxiety: Yes - SURGICAL HISTORY Hx Surgeries: Yes Other/Comment: 11/14/17: right tibial nail and catrachito placement - ANESTHESIA Hx Anesthesia Reactions: No Hx Malignant Hyperthermia: No Meds Home Medications: Home Medication List Medication Instructions Recorded Confirmed Type Dronabinol [Marinol] 5 mg PO BID #0 12/11/17 Rx Metoprolol Tartrate [Lopressor] 25 mg PO BID #0 12/11/17 Rx Allergies/Adverse Reactions: Allergies Allergy/AdvReac Type Severity Reaction Status Date / Time aspirin AdvReac Intermediate NAUSEA Verified 11/06/17 11:48 - Medications Medications: Current Medications Acetaminophen (Tylenol 325mg Tab) 650 mg PO Q6H PRN PRN Reason: PAIN/FEVER Acetylcysteine (Acetylcysteine 20%) 3 ml IH [id number] Last Admin: 12/12/17 07:39 Dose: 3 ml Albuterol/Ipratropium (Duoneb 3 Mg/0.5 Mg (3 Ml) Ud) 3 ml IH Q6H PRN PRN Reason: Shortness of Breath Last Admin: 12/12/17 07:39 Dose: 3 ml Alprazolam (Xanax) 0.25 mg PO Q12 PRN; Protocol PRN Reason: Anxiety Stop: 12/18/17 22:23 Alprazolam (Xanax) 0.25 mg PO HS PRN; Protocol PRN Reason: Anxiety Stop: 12/19/17 22:01 Arformoterol Tartrate (Brovana) 15 mcg IH [id number] [facility] Last Admin: 12/12/17 07:39 Dose: 15 mcg Atorvastatin Calcium (Lipitor) 10 mg PO DIN [facility] Calcium Carbonate (Caltrate) 600 mg PO BID [facility] Docusate Sodium (Colace) 200 mg PO BID [facility] Dronabinol (Marinol) 2.5 mg PO BID [facility] Folic Acid (Folic Acid) 1 mg PO BID [facility] Dextrose/Sodium Chloride (Dextrose 5%/0.45% Ns 1000 Ml) 1,000 mls @ 85 mls/hr IV .[id number] [facility] Last Admin: 12/11/17 22:30 Dose: 85 mls/hr Metoprolol Tartrate (Lopressor) 25 mg PO BID [facility] Nystatin (Nystatin Oral Susp) 5 ml PO TID [facility] Pantoprazole Sodium (Protonix Ec Tab) 40 mg PO 0600 [facility] Last Admin: 12/12/17 06:01 Dose: 40 mg Polyethylene Glycol (Miralax) 17 gm PO BID [facility] Silver Sulfadiazine (Silvadene 1% 25 Gm) 0 gm TP DAILY [facility] Zolpidem Tartrate (Ambien) 5 mg PO HS PRN; Protocol PRN Reason: Insomnia Physical Exam - Constitutional Appears: Chronically Ill - Respiratory Exam Respiratory Exam: Decreased Breath Sounds - Cardiovascular Exam Cardiovascular Exam: REGULAR RHYTHM - GI/Abdominal Exam GI & Abdominal Exam: Normal Bowel Sounds - Neurological Exam Neurological exam: Alert, CN II-XII Intact Results - Vital Signs Recent Vital Signs: Last Vital Signs Temp 98.7 F 12/11/17 23:05 Pulse 71 12/12/17 06:00 Resp 18 12/11/17 23:05 BP 103/48 L 12/11/17 23:05 Pulse Ox 95 12/11/17 20:30 Assessment & Plan - Assessment and Plan (Free Text) Assessment: Mr Monson is a 72 year old male with stage IV lung cancer with bone metastases. He is admitted with failure to thrive. He is being treated for an infection in the lung and decubitus. He has overall generalized weakness with poor appetite. He still needs to finish his radiation to the right tibia which we could resume while he is in the hospital, however given his current overall state, it would make sense to address his other pressing issues first. If he improves, our feeling is that we would resume focal RT at that point. We will touch base with Dr Wolf regarding the case and resuming radiation
[2017-12-12] MEDS ORDERED: Silver Sulfadiazine 1% Cream (25 gm) TP SCH (10:00)
[2017-12-12] MEDS: POLYETHYLENE GLYCOL 3350 17 GM/Dose PACKET PO SCH ×2 (10:40→17:44)
[2017-12-12] MEDS: Nystatin 100,000 Units/ml Oral Susp 5 ml UD PO SCH ×3 (10:40→17:42)
[2017-12-12] MEDS: Dextrose 5%/0.45% NS 1,000 ML IV SCH (10:56)
--- NOTE | 2017-12-12 11:22 | CP.PCM.CON ---
History of Present Illness - History of Present Illness History of Present Illness: Palliative consult requested by Dr Paige Wolf Reason: Goals of care and advance care planning 72 year old male with history of metastatic lung cancer s/p pallaitve RT to lung , right tibial fracture s/p ORIF who became increasingly weaker, anorexic and short of breath. Chest x ray showed postobstructive ROBLES atelectasis. Labs; Wbc 14.1, Hgb 8.7, Plt 350,Na 137, K 3.6, Bun 14, Creat 0.5, AST/ALT WNL, LDH 872, BNP 334, Albumin 3.0 PMHx: metastatic NSC lung cancer, right tibial fx s/p ORIF, HTN, HLD, intractable pain,COPD, anemia, anxiety,constipation. Social History: Former heavy smoker, no alcohol or drug use. , lives with spouse Family History: Non contributory Advance Care Planning: The patent does not have an Advanced Directive. Redrew of Systems: As per HPI, otherwise negative 12 point review Past Patient History - Infectious Disease Hx of Infectious Diseases: None - Past Social History Smoking Status: Former Smoker Alcohol: None - CARDIAC Hx Cardiac Disorders: No - PULMONARY Hx Respiratory Disorders: No - NEUROLOGICAL Hx Neurological Disorder: No - HEENT Hx HEENT Problems: No - RENAL Hx Chronic Kidney Disease: No - ENDOCRINE/METABOLIC Hx Endocrine Disorders: No - HEMATOLOGICAL/ONCOLOGICAL Hx Blood Disorders: Yes Hx Cancer: Yes Hx Chemotherapy: Yes - INTEGUMENTARY Hx Dermatological Problems: No - MUSCULOSKELETAL/RHEUMATOLOGICAL Hx Musculoskeletal Disorders: Yes Hx Degenerative Joint Disease: Yes - GASTROINTESTINAL Hx Gastrointestinal Disorders: No - GENITOURINARY/GYNECOLOGICAL Hx Genitourinary Disorders: No - PSYCHIATRIC Hx Psychophysiologic Disorder: Yes Hx Anxiety: Yes - SURGICAL HISTORY Hx Surgeries: Yes Other/Comment: 11/14/17: right tibial nail and catrachito placement - ANESTHESIA Hx Anesthesia Reactions: No Hx Malignant Hyperthermia: No Meds Home Medications: Home Medication List Medication Instructions Recorded Confirmed Type Dronabinol [Marinol] 5 mg PO BID #0 12/11/17 Rx Metoprolol Tartrate [Lopressor] 25 mg PO BID #0 12/11/17 Rx Allergies/Adverse Reactions: Allergies Allergy/AdvReac Type Severity Reaction Status Date / Time aspirin AdvReac Intermediate NAUSEA Verified 11/06/17 11:48 - Medications Medications: Current Medications Acetaminophen (Tylenol 325mg Tab) 650 mg PO Q6H PRN PRN Reason: PAIN/FEVER Acetylcysteine (Acetylcysteine 20%) 3 ml [facility]H [id number] Last Admin: 12/12/17 07:39 Dose: 3 ml Albuterol/Ipratropium (Duoneb 3 Mg/0.5 Mg (3 Ml) Ud) 3 ml IH Q6H PRN PRN Reason: Shortness of Breath Last Admin: 12/12/17 07:39 Dose: 3 ml Alprazolam (Xanax) 0.25 mg PO Q12 PRN; Protocol PRN Reason: Anxiety Stop: 12/18/17 22:23 Last Admin: 12/12/17 10:39 Dose: 0.25 mg Alprazolam (Xanax) 0.25 mg PO HS PRN; Protocol PRN Reason: Anxiety Stop: 12/19/17 22:01 Arformoterol Tartrate (Brovana) 15 mcg [facility] [id number] [facility] Last Admin: 12/12/17 07:39 Dose: 15 mcg Atorvastatin Calcium (Lipitor) 10 mg PO DIN [facility] Calcium Carbonate (Caltrate) 600 mg PO BID [facility] Last Admin: 12/12/17 10:40 Dose: 600 mg Docusate Sodium (Colace) 200 mg PO BID [facility] Last Admin: 12/12/17 10:40 Dose: 200 mg Dronabinol (Marinol) 2.5 mg PO BID [facility] Last Admin: 12/12/17 10:40 Dose: 2.5 mg Folic Acid (Folic Acid) 1 mg PO BID [facility] Last Admin: 12/12/17 10:40 Dose: 1 mg Dextrose/Sodium Chloride (Dextrose 5%/0.45% Ns 1000 Ml) 1,000 mls @ 85 mls/hr IV .[id number] [facility] Last Admin: 12/12/17 10:56 Dose: 85 mls/hr Metoprolol Tartrate (Lopressor) 25 mg PO BID [facility] Last Admin: 12/12/17 10:41 Dose: 25 mg Nystatin (Nystatin Oral Susp) 5 ml PO TID [facility] Last Admin: 12/12/17 10:40 Dose: 5 ml Pantoprazole Sodium (Protonix Ec Tab) 40 mg PO 0600 [facility] Last Admin: 12/12/17 06:01 Dose: 40 mg Polyethylene Glycol (Miralax) 17 gm PO BID [facility] Last Admin: 12/12/17 10:40 Dose: 17 gm Silver Sulfadiazine (Silvadene 1% 25 Gm) 0 gm TP DAILY [facility] Last Admin: 12/12/17 10:41 Dose: 25 gm Zolpidem Tartrate (Ambien) 5 mg PO HS PRN; Protocol PRN Reason: Insomnia Physical Exam - Constitutional Appears: Cachectic, Chronically Ill - Head Exam Head Exam: NORMOCEPHALIC - Eye Exam Eye Exam: Normal appearance, PERRL - ENT Exam ENT Exam: Mucous Membranes Moist, Normal Oropharynx - Neck Exam Neck exam: Positive for: Normal Inspection - Respiratory Exam Respiratory Exam: Decreased Breath Sounds, NORMAL BREATHING PATTERN - Cardiovascular Exam Cardiovascular Exam: REGULAR RHYTHM, +S1, +S2 - GI/Abdominal Exam GI & Abdominal Exam: Hypoactive Bowel Sounds, Soft - Back Exam Back exam: NORMAL INSPECTION Additional comments: sacral decubiti stage IV - Neurological Exam Neurological exam: Alert, Oriented x3 - Skin Skin Exam: Dry, Pallor - Additional Findings Additional findings: Palliative performance scale rating 40 % Results - Vital Signs Recent Vital Signs: Last Vital Signs Temp 97.8 F 12/12/17 07:30 Pulse 83 12/12/17 10:41 Resp 20 12/12/17 07:30 BP 129/63 12/12/17 10:41 Pulse Ox 100 12/12/17 07:30 - Labs Result Diagrams: 12/12/17 12:45 Assessment & Plan - Assessment and Plan (Free Text) Assessment: 72 year old male with history of metastatic lung cancer s/p palliative RT, right tibial fx s/p ORIF who is admitted with pneumonia, weakness, dehydration and failure to thrive and anemia. The patient is alert and oriented. ELVIA Jones and I had an advance care planning conversation with Mr Monson. Benefits and burdens of resuscitation explained in detail. He states he does not want CPR/intubation and prefers to be kept comfortable if his situation worsens. He is hesitant to initiate a POLST directive. Encouraged family meeting with patients and daughter to further discuss goals of care and advance care planing. The patient is agreeable to this. I spoke with patient's daughter Pranav via phone. I informed her of my conversation with her father regarding resuscitation and advance care planning. Carlee understands the importance of advance care planning. She intends to speak with her mother, sisters and father about initiating a POLST directive. Time spent in advance care planning discussion with patient and family member, 50 minutes Plan: Goals of care and advance care planning NSLC: F/U with Hem /Onc and Radiation oncology Dehydration: IVF's, monitor electrolyses Sacral Decubiti: Santyl, PT/OT, repositioning,dietary counseling Pulmonary: Nebulizers, O2, chest xray
[2017-12-12 12:55] LABS: BASO # 0.01 K/mm3 (0.0-2.0); BASO % 0.1 % (0.0-3.0); GRAN # 9.94 (1.4-6.5); HEMOGLOBIN 7.3 g/dL (14.0-18.0); LYMPH % 8.3 % (22.0-35.0); MEAN CELL VOLUME 93.6 fl (80.0-105.0); MEAN CORPUSCULAR HEMOGLOBIN 29.1 pg (25.0-35.0); MEAN CORPUSCULAR HGB CONC 31.1 g/dl (31.0-37.0); MEAN PLATELET VOLUME 9.1 fl (7.0-11.0); MONO # 0.5 (0.1-0.6); MONO % 4.6 % (1.0-6.0); RBC 2.51 10^6/uL (3.5-6.1); RED CELL DISTRIBUTION WIDTH 17.2 % (11.5-14.5); WHITE BLOOD COUNT 11.4 10^3/ul (4.5-11.0)
[2017-12-12 14:13] LABS: BLOOD UREA NITROGEN 18 mg/dL (7-21); GFR AFRICAN-AMERICAN > 60; GFR NON-AFRICAN AMERICAN > 60
--- NOTE | 2017-12-12 14:13 | CON ---
DATE: 12/12/2017 LOCATION: The patient is in bed and seen earlier today in 362, bed 2. CHIEF COMPLAINT: Weakness times several days. HISTORY OF PRESENT ILLNESS: This is 72-year-old male with past medical history significant for non-small cell lung cancer with bone metastases, history of right hip pathological fracture. The patient has a sacral ulcer unstageable and was admitted because of failure to thrive and lightheadedness. Inpatient Infectious Disease consultation requested because of 14,000 white count. The patient is a poor historian. He is weak. He appears tired, end stage and cachectic. There has been no fevers reported. There are no chills. There is mild shortness of breath, minimal cough. No abdominal pain. No diarrhea. The patient appears there has been no bright red blood per rectum. REVIEW OF SYSTEMS: A 12-point review of systems is performed. PAST MEDICAL HISTORY: Significant for metastatic lung cancer, palliative radiation to the lung, tibial fracture with ORIF of the right tibial fracture. The patient also with hypertension, hyperlipidemia, chronic obstructive lung disease, anemia, anxiety, constipation. PAST SURGICAL HISTORY: Significant for the tibia surgery and the patient has had chemotherapy and radiation. SOCIAL HISTORY: The patient stopped smoking 1 month ago. ALLERGIES: THE PATIENT IS ALLERGIC TO ASPIRIN. MEDICATIONS AT HOME: Revealed the patient to have Zoloft and nystatin, enoxaparin, Xanax, Marinol. PHYSICAL EXAMINATION: GENERAL: On exam, the patient appears chronically ill. VITAL SIGNS: Temperature of 98; heart rate of 71; respiratory rate of 20; blood pressure is 120/60, it was as low as 103 systolic. The patient's O2 saturation is at 100%, it was down to 90% on admission yesterday. The patient's BMI is 20. HEENT: Examination of HEENT is unremarkable. NECK: Supple. LUNGS: Have decreased breath sounds. HEART: Normal S1, S2. ABDOMEN: Soft, nontender. No rebound. No guarding. No masses. SKIN: Examination of sacrum reveals an unstageable sacral ulcer with central necrosis. LABORATORY DATA: Laboratory examination reveals a white count of 14,100, hemoglobin of 7, platelets of 326. Chemistries are noted. Procalcitonin is 0.1. Microbiology: Sputum culture from 10/2017 is reported as normal oral chrissy. The patient had a chest x-ray. Probable postobstructive left upper lobe atelectasis. Isatu Rodríguez's consultation is reviewed. Dr. Bernadette Vega's consultation is reviewed. progress note is reviewed. ASSESSMENT AND PLAN: A 72-year-old male who is end stage, cachectic, non-small cell lung cancer with bone metastases with hypertension, hyperlipidemia, chronic obstructive pulmonary, anemia, anxiety and constipation and admitted now with white count of 14,000 with unstageable sacral ulcer with erythema and cellulitis. We will treat the patient with vancomycin and meropenem. Pending pancultures, initial workup results. Overall prognosis quite poor. Should consider hospice and supportive care for this end-stage cachectic patient. Must rule out underlying osteomyelitis of the sacral bone. We will follow closely with you. Case discussed with nursing staff and medical staff. Barrera Purdy MD
[2017-12-12 14:14] LABS: ALB/GLOB RATIO 0.8 (1.1-1.8); ALBUMIN 2.4 g/dL (3.0-4.8); ALT/SGPT 25 U/L (7-56); AST/SGOT 28 U/L (17-59); CALCIUM 8.2 mg/dL (8.4-10.5)
[2017-12-12] MEDS: Meropenem IV 1 gm in NS 50 ML IVPB SCH (14:26)
[2017-12-12] MEDS: Collagenase 250 Units/gm Ointment(30 gm) TOP SCH (14:31)
[2017-12-12 14:33] LABS: ARTERIAL BLOOD GAS HCO3 31.1 mmol/L (21-28); ARTERIAL BLOOD GAS HEMOGLOBIN 7.7 g/dL (11.7-17.4); ARTERIAL BLOOD GAS O2 CAPACITY 10.6 mL/dl (16-24); ARTERIAL BLOOD GAS O2 CONTENT 10.1 ML/dl (15-23); ARTERIAL BLOOD GAS O2 SAT 95.5 % (95-98); ARTERIAL BLOOD GAS PCO2 49 mm/Hg (35-45); ARTERIAL BLOOD GAS PH 7.41 (7.35-7.45); ARTERIAL BLOOD GAS TCO2 32.6 mmol.L (22-28)
[2017-12-12] MEDS: Vancomycin 1gm in NS 250ml 1 GM/250 ML BAG IVPB SCH (15:13)
[2017-12-12] MEDS ORDERED: Potassium Chloride 40 mEq/30 ml LIQ UD PO ONE (15:47)
[2017-12-12] MEDS ORDERED: DIPHEN PO PRN (15:48)
[2017-12-12] MEDS ORDERED: LIDO PO PRN (15:48)
[2017-12-12] MEDS ORDERED: [UNRECOGNIZED DRUG - OTHER] PO PRN (15:48)
[2017-12-12] MEDS ORDERED: MAG PO PRN (15:48)
--- NOTE | 2017-12-12 16:27 | RAD ---
Date of service: 12/12/2017 PROCEDURE: Right tibia and fibula HISTORY: post op im catrachito rt tib fx COMPARISON: 11/08/2017 TECHNIQUE: AP and lateral views FINDINGS: There is no an intramedullary catrachito traversing the length of the tibia with transverse screws. The catrachito traverses the 2 areas of lytic destruction in the mid and distal tibia. IMPRESSION: As above
[2017-12-12] MEDS ORDERED: Potassium Chloride 20 mEq ER Tab PO ONE ×2 (17:26→22:00)
[2017-12-12] MEDS: Potassium & Sodium Phosphate PO SCH (17:42)
[2017-12-12] MEDS: Vitamins A & D Oint UD Foilpak TOP SCH (17:44)
[2017-12-12] MEDS ORDERED: LANOLIN TOP SCH (18:00)
[2017-12-12] MEDS ORDERED: PETROLATUM WHITE TOP SCH (18:00)
[2017-12-12] MEDS: Potassium Chloride 20 mEq ER Tab PO ONE (22:33)
--- NOTE | 2017-12-12 23:14 | CON ---
DATE: 12/12/2017 PULMONARY CONSULT REFERRING PHYSICIAN: Adolfo Durbin MD REASON FOR CONSULT: Cough, shortness of breath, lung cancer, COPD. HISTORY OF PRESENT ILLNESS: This is a 72-year-old gentleman, well known to me from previous admission, noncompliant with followup, does not come to the office much, known to have a stage IV non-small cell lung cancer with metastases to bone, requiring radiation to chest tumor and also radiation to right lower extremity with pathological fracture, also required surgery in the past, has chronic obstructive lung disease, sacral decubiti, malnourished, brought in with some cough and shortness of breath. Still not able to put weight on the right lower extremity. Poor appetite. No nausea, no dysuria, no leg swelling. PAST MEDICAL HISTORY: Stage IV lung cancer, chronic lung disease, status post right tibial pathological fracture requiring surgery and radiation. ALLERGIES: ASPIRIN. SOCIAL HISTORY: Recently stopped smoking. Denied any alcohol use. FAMILY HISTORY: No significant cardiopulmonary disease reported. MEDICATIONS: He is on Mucomyst inhaled every 12 hours, Ambien 5 mg at bedtime p.r.n., Brovana inhaled twice a day, calcium carbonate 600 mg twice a day, Colace 200 mg twice a day, IV fluid is D5 half normal saline 85 mL/hour, DuoNeb every 6 hours p.r.n., folic acid 1 mg daily, Lipitor 10 mg daily, metoprolol tartrate 25 mg twice a day, Marinol 2.5 mg twice a day, MiraLax 17 g twice a day, nystatin oral suspension 5 mL three times a day, Protonix 40 mg daily, Santyl to affected area, Tylenol p.r.n., Xanax 0.25 mg every 12 hours p.r.n. REVIEW OF SYSTEMS: No headache, not much rhinitis, has some cough and sputum production. No chest pain. No nausea, no vomiting, no diarrhea. No abdominal pain. Still has some right leg discomfort. PHYSICAL EXAMINATION: GENERAL: Lying in the bed, in no acute distress. VITAL SIGNS: Temperature is 98, heart rate is 83, respiratory rate is 20, blood pressure 129/63, pulse ox 100% on nasal cannula. HEENT: Moist mucous membrane. Crowded airway. NECK: Supple. No JVD. LUNGS: Scattered rhonchi with few wheezing. HEART: S1 and S2. ABDOMEN: Soft, nontender. No organomegaly. EXTREMITIES: There is no edema. Has tenderness of right lower leg. NEUROLOGIC: Awake, alert, and follows simple commands. LABORATORY DATA: Shows blood gas was done, which is VBG; pH 7.34, pCO2 of 61, O2 78. His procalcitonin is 0.1. Chest x-ray done yesterday shows post-obstructive left upper lobe atelectasis, small left pleural effusion. IMPRESSION AND PLAN: Stage IV non-small lung cancer with metastatic disease to the bone, chronic obstructive lung disease, status post right tibial pathologic fracture requiring surgery and radiation, malnourished decubiti ulcer. Spoke to family at bedside. Agree with the present treatment. Continue inhaled bronchodilator. Keep head at 45 degrees. Aspiration precaution. Gastric and DVT prophylaxes. Palliative consult, being followed by Hematology/Oncology. Out of bed to chair if possible. Fall precaution. Overall poor prognosis. May need surgical consult for decubiti ulcer. Thank you and we will follow with you. Judit Dent MD
[2017-12-13] MEDS: Meropenem IV 1 gm in NS 50 ML IVPB SCH ×4 (00:11→22:36)
[2017-12-13] MEDS: Potassium Chloride 20 mEq ER Tab PO ONE (00:45)
[2017-12-13] MEDS: Vancomycin 1gm in NS 250ml 1 GM/250 ML BAG IVPB SCH ×2 (03:56→14:45)
[2017-12-13] MEDS: Dextrose 5%/0.45% NS 1,000 ML IV SCH (04:01)
[2017-12-13] MEDS: Pantoprazole 40 mg EC Tab PO SCH (05:53)
[2017-12-13 07:05] LABS: BASO # 0.01 K/mm3 (0.0-2.0); BASO % 0.1 % (0.0-3.0); GRAN # 10.76 (1.4-6.5); LYMPH # 0.8 (1.2-3.4); LYMPH % 6.4 % (22.0-35.0); MEAN CELL VOLUME 92.6 fl (80.0-105.0); MEAN CORPUSCULAR HEMOGLOBIN 28.7 pg (25.0-35.0); MEAN PLATELET VOLUME 9.2 fl (7.0-11.0); MONO # 0.2 (0.1-0.6); MONO % 1.5 % (1.0-6.0); PLATELET COUNT 288 10^3/uL (120.0-450.0); RBC 3.38 10^6/uL (3.5-6.1); RED CELL DISTRIBUTION WIDTH 17.1 % (11.5-14.5); WHITE BLOOD COUNT 11.7 10^3/ul (4.5-11.0)
[2017-12-13 07:29] LABS: ALB/GLOB RATIO 0.8 (1.1-1.8); ALBUMIN 2.5 g/dL (3.0-4.8); ALT/SGPT 21 U/L (7-56); AST/SGOT 33 U/L (17-59); BLOOD UREA NITROGEN 13 mg/dL (7-21); CALCIUM 8.7 mg/dL (8.4-10.5); GFR AFRICAN-AMERICAN > 60; GFR NON-AFRICAN AMERICAN > 60
[2017-12-13 07:37] LABS: HEMOGLOBIN 9.7 g/dL (14.0-18.0)
[2017-12-13] MEDS: Arformoterol 15 mcg/2 ml Inh Sol IH SCH ×2 (07:39→20:18)
[2017-12-13] MEDS: Acetylcysteine 20% Inhal Soln (4ml) IH SCH ×2 (07:39→20:18)
[2017-12-13] MEDS ORDERED: Magnesium 2 gm/50 ml NS 2 GM/50 ML BAG IVPB ONE (07:55)
--- NOTE | 2017-12-13 08:27 | CON ---
DATE: 12/12/2017 ORTHOPEDIC FOLLOWUP AND CONSULT REPORT HISTORY OF PRESENT ILLNESS: The patient underwent intramedullary catrachito fixation with pathologic fracture of right tibia, had skip lesions; one lesion is proximal and the other distal, both lytic. The rodding was done in the OR on 11/14/2017. The wound is dry. Hopefully he is going to be able to go to radiation therapy, and this will help heal the fracture actually once we get the tumor irradiated. He has some tenderness to the distal portion of the right tibia. We will x-ray this and go from there as far as what kind of therapy we can do, because he is very weak and frail. Dayne Fuller DO
[2017-12-13 08:29] LABS: LYMPHOCYTE 8 % (22.0-35.0); MONOCYTE 2 % (1.0-6.0); NEUTROPHIL 90 % (50.0-70.0)
--- NOTE | 2017-12-13 09:28 | CP.PCM.PN ---
Subjective - Date & Time of Evaluation Date of Evaluation: 12/13/17 Time of Evaluation: 07:10 - Subjective Subjective: Doug Varner DO, IM Resident PGY-1 Hematology/Oncology Progress Note for Dr. Wolf Patient was seen and examined at bedside. He is s/p 2 units of PRBCs last night. Per RN, he has continued to be agitated throughout the night despite giving him the alprazolam as ordered. When we examined him again around 10:00, his daughter was present at bedside. We discussed that his recent CT chest, abdomen, pelvis results are encouraging and that the tumor has shrunk considerably. She reports that he feels a little stronger but still has no appetite. He has not been eating regularly. He also reports he has been urinating more frequently but his daughter agrees that this is from the lasix. Speech therapy saw him earlier and recommended soft regular consistency diet with extra gravy and thin liquids, standard aspiration precautions, liquid supplement on meal tray and biotene to moisturize oral cavity. Objective - Vital Signs/Intake and Output Vital Signs (last 24 hours): Temp Pulse Resp BP Pulse Ox 98.3 F 86 20 123/74 92 L 12/13/17 07:50 12/13/17 07:50 12/13/17 07:50 12/13/17 09:06 12/13/17 07:50 Intake and Output: 12/13/17 12/13/17 06:59 18:59 Intake Total 645 120 Output Total 400 100 Balance 245 20 - Medications Medications: Current Medications Acetaminophen (Tylenol 325mg Tab) 650 mg PO Q6H PRN PRN Reason: PAIN/FEVER Last Admin: 12/13/17 08:28 Dose: 650 mg Acetylcysteine (Acetylcysteine 20%) 3 ml IH [id number] [facility] Last Admin: 12/13/17 07:39 Dose: 3 ml Albuterol/Ipratropium (Duoneb 3 Mg/0.5 Mg (3 Ml) Ud) 3 ml IH Q6H PRN PRN Reason: Shortness of Breath Last Admin: 12/12/17 19:27 Dose: 3 ml Alprazolam (Xanax) 0.25 mg PO Q8H [facility] PRN Reason: Protocol Stop: 12/19/17 17:05 Last Admin: 12/13/17 08:27 Dose: 0.25 mg Arformoterol Tartrate (Brovana) 15 mcg IH [id number] [facility] Last Admin: 12/13/17 07:39 Dose: 15 mcg Atorvastatin Calcium (Lipitor) 10 mg PO DIN [facility] Last Admin: 12/12/17 17:43 Dose: 10 mg Calcium Carbonate (Caltrate) 600 mg PO BID [facility] Last Admin: 12/12/17 17:42 Dose: 600 mg Collagenase (Santyl) 1 gm TOP DAILY [facility] Last Admin: 12/12/17 14:31 Dose: 1 applic Al Hydrox/Mg Hydrox/Simethicone 30 ml/Diphenhydramine HCl 75 mg/Lidocaine 30 ml 0 ml PO Q2H PRN PRN Reason: MOUTH/THROAT PAIN Docusate Sodium (Colace) 200 mg PO BID [facility] Last Admin: 12/12/17 17:43 Dose: 200 mg Dronabinol (Marinol) 2.5 mg PO BID [facility] Last Admin: 12/12/17 17:43 Dose: 2.5 mg Enoxaparin Sodium (Lovenox) 30 mg SC DAILY [facility] PRN Reason: Protocol Folic Acid (Folic Acid) 1 mg PO BID [facility] Last Admin: 12/12/17 17:42 Dose: 1 mg Dextrose/Sodium Chloride (Dextrose 5%/0.45% Ns 1000 Ml) 1,000 mls @ 85 mls/hr IV .[id number] [facility] Last Admin: 12/13/17 04:01 Dose: 85 mls/hr Meropenem (Merrem Iv 1 Gm Premix) 50 mls @ 100 mls/hr IVPB Q8 [facility] PRN Reason: Protocol Stop: 12/21/17 14:01 Last Admin: 12/13/17 05:53 Dose: 100 mls/hr Vancomycin HCl (Vancomycin 1gm) 1 gm in 250 mls @ 167 mls/hr IVPB Q12H [facility] PRN Reason: Protocol Stop: 12/21/17 13:46 Last Admin: 12/13/17 03:56 Dose: 167 mls/hr Lidocaine (Lidocaine 5%) 0 gm TOP DAILY [facility] Metoprolol Tartrate (Lopressor) 25 mg PO BID [facility] Last Admin: 12/12/17 17:42 Dose: 25 mg Mirtazapine (Remeron) 7.5 mg PO HS [facility] Last Admin: 07/24/18 22:42 Dose: Not Given Non-Formulary Medication (Dimethicone [Proshield Plus Skin Protectant]) 1 applic TOP DAILY [facility] Nystatin (Nystatin Oral Susp) 5 ml PO TID [facility] Last Admin: 12/12/17 17:42 Dose: 5 ml Ondansetron HCl (Zofran Tab) 4 mg PO Q6 PRN PRN Reason: Nausea/Vomiting Pantoprazole Sodium (Protonix Ec Tab) 40 mg PO 0600 [facility] Last Admin: 12/13/17 05:53 Dose: 40 mg Polyethylene Glycol (Miralax) 17 gm PO BID [facility] Last Admin: 12/12/17 17:44 Dose: 17 gm Potassium Phos/Sodium Phos (Neutra-Phos) 1 pkt PO TID [facility] Last Admin: 12/12/17 17:42 Dose: 1 pkt Sertraline HCl (Zoloft) 25 mg PO DAILY [facility] Vitamin A (Vitamin A & D Oint Ud Foilpak) 1 ea TOP TID [facility] Last Admin: 12/12/17 17:44 Dose: 1 ea Zolpidem Tartrate (Ambien) 5 mg PO HS PRN; Protocol PRN Reason: Insomnia - Labs Labs: 12/13/17 06:20 12/13/17 06:20 - Constitutional Appears: No Acute Distress, Cachectic, Chronically Ill - Head Exam Head Exam: ATRAUMATIC, NORMAL INSPECTION, NORMOCEPHALIC - Eye Exam Eye Exam: Normal appearance, PERRL - ENT Exam ENT Exam: Mucous Membranes Dry - Neck Exam Neck Exam: Full ROM. absent: Lymphadenopathy, Tenderness - Respiratory Exam Respiratory Exam: Clear to Ausculation Bilateral, NORMAL BREATHING PATTERN. absent: Rales, Rhonchi, Wheezes - Cardiovascular Exam Cardiovascular Exam: REGULAR RHYTHM, RRR, +S1, +S2. absent: Gallop, Rubs, Murmur - GI/Abdominal Exam GI & Abdominal Exam: Soft, Normal Bowel Sounds. absent: Guarding, Tenderness, Rebound - Neurological Exam Neurological Exam: Alert, Altered - Psychiatric Exam Psychiatric exam: Agitated, Anxious - Skin Skin Exam: Dry, Intact, Pallor Assessment and Plan - Assessment and Plan (Free Text) Assessment: Mr. Monson is a 72 year old male with PMH of of stage IV NSCLC (with bony metastases, diagnosed last month, treated with palliative radiation by Dr. Vega) , COPD, R tibial pathological fx, sacral decubitus ulcer stage IV admitted for failure to thrive. He was diagnosed with lung biopsy and thoracentesis by Dr. Chandler last month. 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 Dr. Fuller operated on his R tibial fracture on 11/14/17. He then received one round of carboplatin, pemetrexed, and aredia. He presented to outpatient infusion clinic yesterday for second infusion. He was noted to have worsening weight loss and a worsening sacral decubitus ulcer. He was subsequently admitted by Dr. Wolf for failure to thrive after receiving aredia infusion. He was found to be anemic, hypokalemic, and hypomagnesemic on admission. Yesterday he received two units of PRBCs, K and Mg were repleted. He also had blood cultures positive for gram positive cocci in clusters. Plan: Sepsis/Positive Blood Cultures -On vanc and merem -Echo pending -ID following Failure to thrive -Likely secondary to worsening tumor burden, pain, infection, decubitus ulcer -Swallow/speech evaluation completed, recs appreciated -Ensure clear with every meal, mechanical soft diet ordered -Calorie count ordered to monitor calorie intake -Marinol three times a day, give 30 minutes before each meal -Dr. Rajan of psychiatry consulted who agreed with remeron, xanax, and discontinued zoloft NSCLC Stage IV -He is s/p first round of carboplatin and pemetrexed -Will hold for now, wait until he has stabilized -Received Aredia yesterday, will be able to continue as an outpatient once he has stabilized Hypokalemia and hypomagnesemia -Repleted, now resolved -Will continue to monitor Normocytic Anemia -Likely due to anemia of chronic disease, no obvious signs of bleeding at this time -He is s/p two units of PRBCs -H/H has improved -Will continue to monitor R Tibial and foot pain -He is s/p repair by Dr. Fuller -We will start 5% topical lidocaine ointment TID for his continuing pain -Oxycodone 5 mg q6h PRN for pain -Podiatry consulted, appreciate recs Sacral Decubitus Ulcer -Surgery consulted, recs appreciated -Q2 turns, air mattress, BID santyl application, multipodus boots ordered -Bedside PT evaluation ordered DVT/GI PPX: Lovenox and protonix Case and plan were reviewed and discussed in detail with my attending physician Dr. Maryann Varner, DO IM Resident PGY-1
--- NOTE | 2017-12-13 09:30 | CT ---
Date of service: 12/12/2017 PROCEDURE: CT Chest without contrast HISTORY: Left lung mass. Relevant interventional procedure(s): 10/20/2017 CT-guided biopsy left hilar mass. COMPARISON: December 12, 2017. Single-view chest. TECHNIQUE: Contiguous axial images were obtained through the chest without intravenous contrast enhancement. Sagittal and coronal reconstructions were performed. Radiation dose (DLP): 201.09 mGy-cm. This CT exam was performed using one or more of the following dose reduction techniques: Automated exposure control, adjustment of the mA and/or kV according to patient size, and/or use of iterative reconstruction technique. FINDINGS: LUNGS: Spiculated mass right upper lobe 9 mm. The finding is suspicious for tumor. Tumor identified in the left hilum inseparable from collapse of adjacent left lung. In the absence of intravenous contrast may be fall comparison with prior studies difficult. Subjectively, the mass has decreased in size. MEDIASTINUM: Unremarkable thoracic aorta. No aneurysm. Normal sized heart. Main pulmonary artery unremarkable. No vascular congestion. No lymphadenopathy. PLEURA: Bilateral pleural effusions left larger than right. BONES: Lytic mass T3 vertebral body with wedge deformity related to destruction of the vertebral body. No significant impression upon the spinal canal. This represents a new finding. UPPER ABDOMEN: Enlarged right adrenal gland 2.2 x 2.6 cm. Diminished in size compared to the prior study (2.2 x 3.7 cm). . OTHER FINDINGS: Decrease in size of the right chest wall mass compared to the prior study. Previously the mass measured 5.6 x 8.4 cm. The bilobed mass now measures 2 x 5.2 cm. Axillary lymphadenopathy identified on the right as well as additional supraclavicular disease has diminished although more accurate assessment in the absence of intravenous contrast is difficult. IMPRESSION: Mixed response to therapeutic intervention. Specifically bulky tumor identified previously within the thorax and soft tissues of the chest has declined as has supraclavicular and axillary adenopathy. The right adrenal mass is also diminished in size. There is a new lytic lesion at T3 and additional pulmonary nodules not identified previously although overall, tumor burden appears to have decreased considerably. Limitations of the current examination: Absence of intravenous contrast precludes more accurate assessment of tumor burden within the thorax.
[2017-12-13] MEDS ORDERED: Lidocaine 5% Oint(35 gm) TOP SCH (10:00)
[2017-12-13] MEDS: Enoxaparin 30 mg Syringe SC SCH (10:27)
[2017-12-13] MEDS: Collagenase 250 Units/gm Ointment(30 gm) TOP SCH (10:28)
[2017-12-13] MEDS: Potassium & Sodium Phosphate PO SCH ×3 (10:28→18:09)
[2017-12-13] MEDS: POLYETHYLENE GLYCOL 3350 17 GM/Dose PACKET PO SCH ×2 (10:28→18:09)
[2017-12-13] MEDS: Nystatin 100,000 Units/ml Oral Susp 5 ml UD PO SCH (10:28)
[2017-12-13] MEDS: Vitamins A & D Oint UD Foilpak TOP SCH ×3 (10:29→18:10)
--- NOTE | 2017-12-13 12:05 | PN ---
DATE: 12/13/2017 SUBJECTIVE: The patient is seen in room 363, bed 2. The patient is in bed, in no acute distress, nontoxic. No fevers. PHYSICAL EXAMINATION: VITAL SIGNS: Temperature is 98, blood pressure is 125/70, respiratory rate of 20. HEENT: Examination of HEENT is unremarkable. NECK: Supple. LUNGS: Have decreased breath sounds. HEART: Normal S1 and S2. ABDOMEN: Soft. LABORATORY DATA: Laboratory examination reveals the patient's white count of 11,700, hemoglobin of 9, platelets of 288. Chemistries reveals a BUN of 13, creatinine of 0.3, procalcitonin 0.10. Microbiology reveals blood cultures are positive for a gram-positive cocci x2 bottles and coag-negative Staph by PNA FISH. Review of orders reveals the patient to be on meropenem and vancomycin. The patient had a CAT scan of the chest, which is noted new lytic lesion, pulmonary nodules and mass in the right upper lobe, which is from malignancy. Chest x-ray was noticed from 12/11/2017. ASSESSMENT AND PLAN: A 72-year-old male who was seen earlier today in 363, bed 2. Admitted with end-stage, cachectic, non-small cell lung cancer with bone metastasis, hypertension, hyperlipidemia, chronic obstructive lung disease. Admitted with leukocytosis and unstageable sacral ulcer and erythema and cellulitis with coagulase-negative Staphylococcus, blood cultures 2 bottles in patient who has a Port-A-Cath, on vancomycin and meropenem. Waiting for identification of gram-positive cocci, coagulase-negative Staphylococcus, on vancomycin and meropenem in a patient with Port-A-Cath and overall prognosis quite poor. The patient had surgery in the tibia. We will repeat blood cultures x2. Must rule out Port-A-Cath infection. We will also order echocardiogram to rule out endocarditis. We will continue the vancomycin and meropenem. Overall prognosis is poor for this patient who is chronically ill, cachectic, body mass index of 20, now with multiple blood cultures positive. Must rule out endocarditis. Should have a vancomycin trough level on the fourth dose. The patient is currently receiving vancomycin twice. We will order for 01:45 in the morning and 01:45 in the afternoon. We will order for 12:45 for tomorrow vancomycin trough level. Barrera Purdy MD [facility] # [id number]
--- NOTE | 2017-12-13 12:31 | CP.PCM.CON ---
History of Present Illness - History of Present Illness History of Present Illness: General surgery consult note for Dr. Elliott Consulted for Sacral ulcer Mr. Monson is a 72 yr old male with PMH of metastatic NSC lung cancer, right tibial fx s/p ORIF, HTN, HLD,intractable pain,COPD, anemia, anxiety, and constipation presents with an unstageable sacral ulcer 3.5 x3.5 cm. The ulcer has a 2 x2 cm black eschar over the top. Patient denies pain at the site and complains of only mild soreness. Patient additionally denies n/v/c/f, abdominal pain. PMH:metastatic NSC lung cancer, right tibial fx s/p ORIF, HTN, HLD,intractable pain,COPD, anemia, anxiety, and constipation PSH: right tibial ORIF for pathologic fracture Allergies: ASA Social: former heavy smoker Review of Systems - Review of Systems All systems: reviewed and no additional remarkable complaints except Review of Systems: as per HPI Past Patient History - Infectious Disease Hx of Infectious Diseases: None - Past Social History Smoking Status: Former Smoker - CARDIAC Hx Cardiac Disorders: No - PULMONARY Hx Respiratory Disorders: No - NEUROLOGICAL Hx Neurological Disorder: No - HEENT Hx HEENT Problems: No - RENAL Hx Chronic Kidney Disease: No - ENDOCRINE/METABOLIC Hx Endocrine Disorders: No - HEMATOLOGICAL/ONCOLOGICAL Hx Cancer: Yes (lung) - INTEGUMENTARY Hx Dermatological Problems: No - MUSCULOSKELETAL/RHEUMATOLOGICAL Hx Musculoskeletal Disorders: Yes Hx Falls: Yes (mechanical fall) - GASTROINTESTINAL Hx Gastrointestinal Disorders: No - GENITOURINARY/GYNECOLOGICAL Hx Genitourinary Disorders: No - PSYCHIATRIC Hx Psychophysiologic Disorder: Yes Hx Anxiety: Yes - SURGICAL HISTORY Hx Surgeries: Yes Other/Comment: 11/14/17: right tibial nail and catrachito placement - ANESTHESIA Hx Anesthesia Reactions: No Hx Malignant Hyperthermia: No Meds Home Medications: Home Medication List Medication Instructions Recorded Confirmed Type Dronabinol [Marinol] 5 mg PO BID #0 12/11/17 Rx Metoprolol Tartrate [Lopressor] 25 mg PO BID #0 12/11/17 Rx Allergies/Adverse Reactions: Allergies Allergy/AdvReac Type Severity Reaction Status Date / Time aspirin AdvReac Intermediate NAUSEA Verified 11/06/17 11:48 - Medications Medications: Current Medications Acetaminophen (Tylenol 325mg Tab) 650 mg PO Q6H PRN PRN Reason: PAIN/FEVER Last Admin: 12/13/17 08:28 Dose: 650 mg Acetylcysteine (Acetylcysteine 20%) 3 ml IH [id number] [facility] Last Admin: 12/13/17 07:39 Dose: 3 ml Albuterol/Ipratropium (Duoneb 3 Mg/0.5 Mg (3 Ml) Ud) 3 ml IH Q6H PRN PRN Reason: Shortness of Breath Last Admin: 12/12/17 19:27 Dose: 3 ml Alprazolam (Xanax) 0.25 mg PO Q8H [facility] PRN Reason: Protocol Stop: 12/19/17 17:05 Last Admin: 12/13/17 08:27 Dose: 0.25 mg Arformoterol Tartrate (Brovana) 15 mcg IH [id number] [facility] Last Admin: 12/13/17 07:39 Dose: 15 mcg Atorvastatin Calcium (Lipitor) 10 mg PO DIN [facility] Last Admin: 12/12/17 17:43 Dose: 10 mg Calcium Carbonate (Caltrate) 600 mg PO BID [facility] Last Admin: 12/13/17 10:24 Dose: 600 mg Collagenase (Santyl) 1 gm TOP DAILY [facility] Last Admin: 12/13/17 10:28 Dose: 1 applic Al Hydrox/Mg Hydrox/Simethicone 30 ml/Diphenhydramine HCl 75 mg/Lidocaine 30 ml 0 ml PO Q2H PRN PRN Reason: MOUTH/THROAT PAIN Docusate Sodium (Colace) 200 mg PO BID [facility] Last Admin: 12/13/17 10:24 Dose: 200 mg Dronabinol (Marinol) 2.5 mg PO BID [facility] Last Admin: 12/13/17 10:27 Dose: 2.5 mg Enoxaparin Sodium (Lovenox) 30 mg SC DAILY [facility] PRN Reason: Protocol Last Admin: 12/13/17 10:27 Dose: 30 mg Folic Acid (Folic Acid) 1 mg PO BID [facility] Last Admin: 12/13/17 10:25 Dose: 1 mg Dextrose/Sodium Chloride (Dextrose 5%/0.45% Ns 1000 Ml) 1,000 mls @ 85 mls/hr IV .[id number] [facility] Last Admin: 12/13/17 04:01 Dose: 85 mls/hr Meropenem (Merrem Iv 1 Gm Premix) 50 mls @ 100 mls/hr IVPB Q8 [facility] PRN Reason: Protocol Stop: 12/21/17 14:01 Last Admin: 12/13/17 05:53 Dose: 100 mls/hr Vancomycin HCl (Vancomycin 1gm) 1 gm in 250 mls @ 167 mls/hr IVPB Q12H [facility] PRN Reason: Protocol Stop: 12/21/17 13:46 Last Admin: 12/13/17 03:56 Dose: 167 mls/hr Lidocaine (Lidocaine 5%) 0 gm TOP TID [facility] Metoprolol Tartrate (Lopressor) 25 mg PO BID [facility] Last Admin: 12/13/17 10:26 Dose: 25 mg Mirtazapine (Remeron) 7.5 mg PO HS [facility] Last Admin: 12/12/17 22:42 Dose: Not Given Non-Formulary Medication (Dimethicone [Proshield Plus Skin Protectant]) 1 applic TOP DAILY [facility] Ondansetron HCl (Zofran Tab) 4 mg PO Q6 PRN PRN Reason: Nausea/Vomiting Pantoprazole Sodium (Protonix Ec Tab) 40 mg PO 0600 [facility] Last Admin: 12/13/17 05:53 Dose: 40 mg Polyethylene Glycol (Miralax) 17 gm PO BID [facility] Last Admin: 12/13/17 10:28 Dose: 17 gm Potassium Phos/Sodium Phos (Neutra-Phos) 1 pkt PO TID [facility] Last Admin: 12/13/17 10:28 Dose: 1 pkt Saliva Substitute (Saliva Substitute) 0 ml PO [facility] Vitamin A (Vitamin A & D Oint Ud Foilpak) 1 ea TOP TID [facility] Last Admin: 12/13/17 10:29 Dose: 1 ea Zolpidem Tartrate (Ambien) 5 mg PO HS PRN; Protocol PRN Reason: Insomnia Physical Exam - Constitutional Appears: Non-toxic, No Acute Distress, Cachectic, Chronically Ill - Head Exam Head Exam: ATRAUMATIC, NORMOCEPHALIC - ENT Exam ENT Exam: Mucous Membranes Dry - Respiratory Exam Respiratory Exam: NORMAL BREATHING PATTERN - Cardiovascular Exam Cardiovascular Exam: +S1, +S2 - GI/Abdominal Exam GI & Abdominal Exam: Soft. absent: Distended, Firm, Guarding, Rebound, Rigid, Tenderness - Extremities Exam Extremities exam: Positive for: pedal pulses present. Negative for: calf tenderness, pedal edema Additional comments: small 1cm x 1cm stage 1 ulcer on the lateral portion of the right heel - Back Exam Additional comments: 3.5 cm x 3.5 cm unstageable decubitus ulcer of the sacrum, no other ulcers of the back, shoulders, or elbows - Neurological Exam Neurological exam: Alert - Skin Additional comments: small 1cm x 1 cm stage 1 ulcer of the right lateral heel, sacral ulcer as described above Results - Vital Signs Recent Vital Signs: Last Vital Signs Temp 98.3 F 12/13/17 07:50 Pulse 86 12/13/17 07:50 Resp 20 12/13/17 07:50 BP 125/73 12/13/17 10:26 Pulse Ox 92 L 12/13/17 07:50 - Labs Result Diagrams: 12/13/17 06:20 12/13/17 06:20 Labs: Laboratory Results - last 24 hr 12/12/17 12/12/17 12/12/17 12:45 12:45 14:20 WBC 11.4 H RBC 2.51 L Hgb 7.3 L Hct 23.5 L MCV 93.6 MCH 29.1 MCHC 31.1 RDW 17.2 H Plt Count 326 MPV 9.1 Gran % 87.0 H Lymph % (Auto) 8.3 L [place] % (Auto) 4.6 Eos % (Auto) 0.0 L Baso % (Auto) 0.1 Gran # 9.94 H Lymph # (Auto) 1.0 L [place] # (Auto) 0.5 Eos # (Auto) 0.0 Baso # (Auto) 0.01 Neutrophils % (Manual) Lymphocytes % (Manual) Monocytes % (Manual) pCO2 49 H pO2 61.0 L HCO3 31.1 H ABG pH 7.41 ABG Total CO2 32.6 H ABG O2 Saturation 95.5 ABG O2 Content 10.1 L ABG Base Excess 5.8 H ABG Hemoglobin 7.7 L ABG Carboxyhemoglobin 2.2 H POC ABG HHb (Measured) 4.4 ABG Methemoglobin 0.7 ABG O2 Capacity 10.6 L Hgb O2 Saturation 92.8 L FiO2 32.0 Sodium 138 Potassium 3.1 L Chloride 99 Carbon Dioxide 34 H Anion Gap 8 L BUN 18 Creatinine 0.3 L Est GFR ( Amer) > 60 Est GFR (Non-Af Amer) > 60 Random Glucose 123 H Calcium 8.2 L Phosphorus Magnesium Total Bilirubin 0.4 AST 28 ALT 25 Alkaline Phosphatase 80 Total Protein 5.4 L Albumin 2.4 L Globulin 3.0 Albumin/Globulin Ratio 0.8 L Blood Type Antibody Screen Crossmatch BBK History Checked 12/12/17 12/13/17 12/13/17 16:06 06:20 06:20 WBC 11.7 H RBC 3.38 L Hgb 9.7 L D Hct 31.3 L MCV 92.6 MCH 28.7 MCHC 31.0 RDW 17.1 H Plt Count 288 MPV 9.2 Gran % 92.0 H Lymph % (Auto) 6.4 L [place] % (Auto) 1.5 Eos % (Auto) 0.0 L Baso % (Auto) 0.1 Gran # 10.76 H Lymph # (Auto) 0.8 L [place] # (Auto) 0.2 Eos # (Auto) 0.0 Baso # (Auto) 0.01 Neutrophils % (Manual) 90 H Lymphocytes % (Manual) 8 L Monocytes % (Manual) 2 pCO2 pO2 HCO3 ABG pH ABG Total CO2 ABG O2 Saturation ABG O2 Content ABG Base Excess ABG Hemoglobin ABG Carboxyhemoglobin POC ABG HHb (Measured) ABG Methemoglobin ABG O2 Capacity Hgb O2 Saturation FiO2 Sodium 138 Potassium 4.2 Chloride 102 Carbon Dioxide 35 H Anion Gap 6 L BUN 13 Creatinine 0.3 L Est GFR ( Amer) > 60 Est GFR (Non-Af Amer) > 60 Random Glucose 150 H Calcium 8.7 Phosphorus 2.3 L Magnesium 1.4 L Total Bilirubin 0.3 AST 33 ALT 21 Alkaline Phosphatase 98 Total Protein 5.6 L Albumin 2.5 L Globulin 3.1 Albumin/Globulin Ratio 0.8 L Blood Type O POSITIVE Antibody Screen Negative Crossmatch See Detail BBK History Checked Patient has bt Assessment & Plan - Assessment and Plan (Free Text) Assessment: 72 y/o male with stage IV NSCLC, and unstageable 3.5x3.5 cm sacral ulcer Plan: -turn q2hrs -patient to have air mattress, nurse to obtain - BID santyl application with optifoam -multipodus boots ordered -possible bedside removal of eschar -discussed plan with Dr. Earl Arnold, PGY 1
[2017-12-13] MEDS ORDERED: oxyCODONE 5 mg Immediate Release Tab PO PRN (12:42)
--- NOTE | 2017-12-13 14:31 | CON ---
DATE: 12/13/2017 HISTORY OF PRESENT ILLNESS: In short, the patient is a 72-year-old male with not known previous psychiatric history, multiple medical issues including stage IV lung cancer with bone metastasis, the right hip pathological fracture, sacral ulcers stage IV. The patient was admitted on the medical side for failure to thrive and lightheadedness. This publicity writer was involved into the patient care because of depressive symptoms. The patient was seen and examined. Previous notes reviewed. Resident note indicated that the patient had episodes of agitation overnight time, but this publicity writer was not able to find that information in interactive nursing notes. The patient was seen and examined. The patient presented to be withdrawn. The patient knows that he is in the hospital. The patient was not willing to participate in interview and appears to be physically sick and weak. The patient reported that he never talked to psychiatrist. He never tried to kill himself and he is not on any psychotropic medications. Besides that, the patient excused himself because of the weakness. This publicity writer reviewed vital signs. VITAL SIGNS: Seems to be stable. Temperature 98.3, pulse is 86, blood pressure 125/73, respiration 20, oxygen saturation is 92. MEDICATIONS: Reviewed. The patient is on multiple medications, Tylenol, acetylcysteine, Xanax 0.25 mg every 8 hours scheduled, agree with that, Brovana, Lipitor, calcium carbonate, collagenase, dextrose, Colace, Marinol, Lovenox, folic acid, meropenem, Lopressor, agreed with Remeron 7.5 mg at the nighttime for depression and also it could boost the patient's appetite. The patient is nystatin, Zofran, Protonix, Neutra-Phos, Zoloft, this publicity writer would discontinue because this medication will take 4-6 weeks to start working, on top of that it is anxiety provoking. Moreover, the patient denied that he is feeling depressed. The patient is also on vancomycin, vitamin A and Ambien, agree with Julissa. LABORATORY DATA: Reviewed. Most recent was from today. WBC cells 11.7, hemoglobin is 9.7 and hematocrit 31.3. Blood gas reviewed. Chemistry reviewed. Procalcitonin is 0.1. Microbiology is reviewed. Blood culture, Gram-positive cocci and most recent was on 12/11/2017. Reports are reviewed. MENTAL STATUS EXAMINATION: The patient appears to be depressed and withdrawn, poor eye contact. Speech was monotonic and low volume. Mood described, "I am fine. I have a lot of issues." Affect was constricted. Thought process concrete. Thought content, the patient denied feeling of hopelessness or helplessness. The patient does not have future oriented plans because of the medical condition, which he is quite aware of. Insight and judgment seems to be fair. Impulses are well controlled, but as per resident note, the patient was agitated overnight. IMPRESSION: Rule out mood disorder due to general medical condition. The patient had multiple medical issues, stage IV lung cancer, pathological fracture of his hip. The patient has sepsis. Please see medical team notes for more detailed information. PLAN: Agree with Remeron 7.5 mg at the nighttime. Discontinue Zoloft, Xanax agree. We will follow up and advise accordingly. Supportive therapy was provided. Empathic listening was provided. Thank you very much. Mohini Oro MD
[2017-12-13] MEDS: Lidocaine 5% Oint(35 gm) TOP SCH ×2 (14:44→18:07)
[2017-12-13] MEDS ORDERED: Saliva Substitute 44.3 ML PO SCH ×2 (17:00)
[2017-12-13] MEDS: Saliva Substitute 44.3 ML PO SCH (17:10)
--- NOTE | 2017-12-13 18:08 | CARD ---
APPROVED REPORT Date of service: 12/13/2017 EXAM: Two-dimensional and M-mode echocardiogram with Doppler and color Doppler. INDICATION Infection:Rule out subacute bacterial endocarditis 2D DIMENSIONS Left Atrium (2D)3.0 (1.6-4.0cm)IVSd1.0 (0.7-1.1cm) LVDd3.2 (3.9-5.9cm)PWd1.0 (0.7-1.1cm) LVDs2.4 (2.5-4.0cm)FS (%) 25.4 % LVEF (%)51.5 (>50%) M-Mode DIMENSIONS Aortic Root3.20 (2.2-3.7cm)Aortic Cusp Exc.2.00 (1.5-2.0cm) Aortic Valve AoV Peak Hancjsjr686.0cm/Mary Jo Peak GR.5mmHg Mitral Valve E/A ratio0.0 TDI E/Lateral E'0.0E/Medial E'0.0 Tricuspid Valve TR Peak [id number] [id number] Peak Gr.41mmHg [id number] LEFT VENTRICLE The left ventricle is normal size. There is normal left ventricular wall thickness. The left ventricular function is normal. The left ventricular ejection fraction is within the normal range. There is normal LV segmental wall motion. Transmitral Doppler flow pattern is abnormal. RIGHT VENTRICLE The right ventricle is mildly to moderately dilated.RV Systolic function is mildly to moderately reduced. There is normal right ventricular wall thickness. Systolic function is mildly to moderately reduced. ATRIA The left atrium size is normal. The right atrium size is normal. AORTIC VALVE The aortic valve is moderately thickened. No aortic regurgitation is present. There is no aortic valvular stenosis. There is no aortic valvular vegetation. MITRAL VALVE The mitral valve is mildly thickened. Mitral regurgitation is trace. There is no mitral valve stenosis. TRICUSPID VALVE There is mild tricuspid regurgitation. There is moderate pulmonary hypertension. GREAT VESSELS The aortic root is normal in size. The IVC is dilated. <Conclusion> The right ventricle is mildly to moderately dilated.RV Systolic function is mildly to moderately reduced. There is moderate pulmonary hypertension. no vegetation.seen
--- NOTE | 2017-12-13 18:50 | PN ---
DATE: 12/13/2017 PULMONARY PROGRESS NOTE REFERRING PHYSICIAN: Adolfo Durbin MD. SUBJECTIVE: He is lying in the bed, head at 45 degrees. Family is at bedside. Night was unremarkable. Still has some cough with sputum production. No nausea, no vomiting, no diarrhea. No leg pain or leg swelling. PHYSICAL EXAMINATION: GENERAL: In no acute distress. VITAL SIGNS: Temperature is 98, heart rate 86, respiratory rate is 20, blood pressure 125/73, pulse ox 92% on nasal cannula. HEENT: Moist mucous membrane. Crowded airway. NECK: Supple. No JVD. LUNGS: Scattered rhonchi, fair airflow. HEART: S1 and S2. ABDOMEN: Soft, nontender. No organomegaly. EXTREMITIES: There is no edema. NEUROLOGIC: Awake, alert, and follows simple command. MEDICATIONS: He is on Mucomyst inhaled every 12 hours, Ambien 5 mg at bedtime p.r.n., Brovana inhaled twice a day, calcium carbonate 600 mg twice a day, Colace 200 mg twice a day, DuoNeb every 6 hours p.r.n., folic acid 1 mg daily, lidocaine patch to affected area, Lipitor 10 mg daily, metoprolol tartrate 25 mg twice a day, Lovenox 30 mg subcu daily, Marinol 2.5 mg before meals, meropenem 1 g IV every 8 hours, MiraLax 17 g twice a day, multivitamins daily, oxycodone immediate release 5 mg every 6 hours p.r.n., Protonix 40 mg daily, Remeron 7.5 mg at bedtime, Santyl to affected area, Tylenol p.r.n., vancomycin 1 g IV every 12 hours, vitamin A and D ointment to affected area, Xanax 0.25 mg every 8 hours, and Zofran p.r.n. basis. LABORATORY DATA: Shows hemoglobin 9.7, hematocrit 31.3, WBC 11.7, platelets 288. He had blood gases done yesterday, showed pH 7.41, pCO2 of 49, pO2 of 61. Sodium 138, potassium 4.2, chloride 102, bicarbonate 35, BUN 13, creatinine 0.3, glucose 150, calcium is 8.7, phosphorus 2.3, and magnesium 1.4. AST 33, ALT 21, and alkaline phosphatase is 98. Albumin is 2.3. Blood culture has gram-positive cocci. CAT scan of the chest done shows mixed response to therapeutic intervention, specifically bulky tumor identified previously within the thorax and soft tissue of the chest has declined as has supraclavicular axillary adenopathy. The right adrenal mass is also diminished in size. There is new lytic lesion in T3 and additional pulmonary nodule, not identified previously. Overall tumor burden appeared to have decreased. IMPRESSION AND PLAN: Metastatic lung cancer involving the bone, new vertebral lesion, history of distal tibial fracture which was pathologic fracture, chronic obstructive lung disease, left upper lobe atelectasis, malnutrition, decubiti ulcer. Case discussed Dr. Wolf in detail. Continue chemotherapy, inhaled bronchodilator, antibiotics as per Infectious Diseases, he has a bacteremia. Will not recommend bronchial stent at this stage. Gastric and deep venous thrombosis prophylaxes. Out of bed to chair. Encourage p.o. intake, physical therapy. Thank you and we will follow with you. Judit Dent MD
[2017-12-14] MEDS: Dextrose 5%/0.45% NS 1,000 ML IV SCH ×3 (00:04→22:00)
[2017-12-14] MEDS: Vancomycin 1gm in NS 250ml 1 GM/250 ML BAG IVPB SCH ×2 (01:51→18:33)
[2017-12-14] MEDS: Meropenem IV 1 gm in NS 50 ML IVPB SCH ×3 (06:03→22:01)
[2017-12-14] MEDS: Pantoprazole 40 mg EC Tab PO SCH (06:04)
[2017-12-14 06:49] LABS: BASO # 0.01 K/mm3 (0.0-2.0); BASO % 0.1 % (0.0-3.0); EOS % 0.2 % (1.5-5.0); GRAN # 10.78 (1.4-6.5); GRAN % 88.1 % (50.0-68.0); HEMOGLOBIN 10.4 g/dL (14.0-18.0); LYMPH # 0.9 (1.2-3.4); LYMPH % 7.5 % (22.0-35.0); MEAN CELL VOLUME 92.7 fl (80.0-105.0); MEAN CORPUSCULAR HEMOGLOBIN 29.3 pg (25.0-35.0); MEAN CORPUSCULAR HGB CONC 31.6 g/dl (31.0-37.0); MEAN PLATELET VOLUME 9.6 fl (7.0-11.0); MONO # 0.5 (0.1-0.6); MONO % 4.1 % (1.0-6.0); RBC 3.55 10^6/uL (3.5-6.1); RED CELL DISTRIBUTION WIDTH 17.1 % (11.5-14.5); WHITE BLOOD COUNT 12.2 10^3/ul (4.5-11.0)
[2017-12-14 06:58] LABS: ALB/GLOB RATIO 0.9 (1.1-1.8); ALBUMIN 2.5 g/dL (3.0-4.8); ALT/SGPT 21 U/L (7-56); AST/SGOT 34 U/L (17-59); BLOOD UREA NITROGEN 9 mg/dL (7-21); CALCIUM 8.2 mg/dL (8.4-10.5); GFR AFRICAN-AMERICAN > 60; GFR NON-AFRICAN AMERICAN > 60
[2017-12-14] MEDS: Acetylcysteine 20% Inhal Soln (4ml) IH SCH ×2 (07:41→19:57)
[2017-12-14] MEDS: Arformoterol 15 mcg/2 ml Inh Sol IH SCH ×2 (07:41→19:58)
[2017-12-14] MEDS ORDERED: POTASSIUM CHLORIDE IV SCH (07:45)
[2017-12-14] MEDS ORDERED: SODIUM CHLORIDE 0.9% IV SCH (07:45)
[2017-12-14] MEDS ORDERED: MAGNESIUM SULFATE IV SCH (07:45)
--- NOTE | 2017-12-14 08:54 | CP.PCM.PN ---
Subjective - Date & Time of Evaluation Date of Evaluation: 12/14/17 Time of Evaluation: 07:45 - Subjective Subjective: General surgery progress note for Dr. Elliott Patient seen and examined this am. SMITHEShanta prer nursing. patient denies pain from the sacral ulcer but does admit to mild soreness. Patient otherwise denies f/c/ n/v, abdominal pain. Objective - Vital Signs/Intake and Output Vital Signs (last 24 hours): Temp Pulse Resp BP Pulse Ox 97 F L 86 20 138/72 91 L 12/14/17 08:18 12/14/17 08:18 12/14/17 08:18 12/14/17 08:18 12/14/17 08:18 Intake and Output: 12/14/17 12/14/17 06:59 18:59 Intake Total 1675 Output Total 1300 Balance 375 - Medications Medications: Current Medications Acetaminophen (Tylenol 325mg Tab) 650 mg PO Q6H PRN PRN Reason: PAIN/FEVER Last Admin: 12/13/17 08:28 Dose: 650 mg Acetylcysteine (Acetylcysteine 20%) 3 ml IH [id number] [facility] Last Admin: 12/14/17 07:41 Dose: 3 ml Albuterol/Ipratropium (Duoneb 3 Mg/0.5 Mg (3 Ml) Ud) 3 ml IH Q6H PRN PRN Reason: Shortness of Breath Last Admin: 12/12/17 19:27 Dose: 3 ml Alprazolam (Xanax) 0.25 mg PO Q8H [facility] PRN Reason: Protocol Stop: 12/19/17 17:05 Last Admin: 12/14/17 00:30 Dose: Not Given Arformoterol Tartrate (Brovana) 15 mcg IH [id number] [facility] Last Admin: 12/14/17 07:41 Dose: 15 mcg Atorvastatin Calcium (Lipitor) 10 mg PO DIN [facility] Last Admin: 12/13/17 18:07 Dose: 10 mg Calcium Carbonate (Caltrate) 600 mg PO BID [facility] Last Admin: 12/13/17 18:05 Dose: 600 mg Collagenase (Santyl) 1 gm TOP DAILY [facility] Last Admin: 12/13/17 10:28 Dose: 1 applic Al Hydrox/Mg Hydrox/Simethicone 30 ml/Diphenhydramine HCl 75 mg/Lidocaine 30 ml 0 ml PO Q2H PRN PRN Reason: MOUTH/THROAT PAIN Docusate Sodium (Colace) 200 mg PO BID [facility] Last Admin: 12/13/17 18:06 Dose: 200 mg Dronabinol (Marinol) 2.5 mg PO AC [facility] Last Admin: 12/13/17 17:09 Dose: 2.5 mg Enoxaparin Sodium (Lovenox) 30 mg SC DAILY [facility] PRN Reason: Protocol Last Admin: 12/13/17 10:27 Dose: 30 mg Folic Acid (Folic Acid) 1 mg PO BID [facility] Last Admin: 12/13/17 18:06 Dose: 1 mg Dextrose/Sodium Chloride (Dextrose 5%/0.45% Ns 1000 Ml) 1,000 mls @ 85 mls/hr IV .[id number] [facility] Last Admin: 12/14/17 00:04 Dose: 85 mls/hr Meropenem (Merrem Iv 1 Gm Premix) 50 mls @ 100 mls/hr IVPB Q8 [facility] PRN Reason: Protocol Stop: 12/21/17 14:01 Last Admin: 12/14/17 06:03 Dose: 100 mls/hr Vancomycin HCl (Vancomycin 1gm) 1 gm in 250 mls @ 167 mls/hr IVPB Q12H [facility] PRN Reason: Protocol Stop: 12/21/17 13:46 Last Admin: 12/14/17 01:51 Dose: 167 mls/hr Potassium Chloride 60 meq/Magnesium Sulfate 2 gm/ Sodium Chloride 1,034 mls @ 125 mls/hr IV .Q8H17M [facility] Stop: 12/14/17 16:01 Lidocaine (Lidocaine 5%) 0 gm TOP TID [facility] Last Admin: 12/13/17 18:07 Dose: 1 applic Metoprolol Tartrate (Lopressor) 25 mg PO BID [facility] Last Admin: 12/13/17 18:07 Dose: 25 mg Mirtazapine (Remeron) 7.5 mg PO HS [facility] Last Admin: 12/13/17 22:37 Dose: Not Given Non-Formulary Medication (Dimethicone [Proshield Plus Skin Protectant]) 1 applic TOP DAILY [facility] Ondansetron HCl (Zofran Tab) 4 mg PO Q6 PRN PRN Reason: Nausea/Vomiting Oxycodone HCl (Oxycodone Immediate Release Tab) 5 mg PO Q6H PRN PRN Reason: Pain, severe (8-10) Pantoprazole Sodium (Protonix Ec Tab) 40 mg PO 0600 [facility] Last Admin: 12/14/17 06:04 Dose: 40 mg Polyethylene Glycol (Miralax) 17 gm PO BID [facility] Last Admin: 12/13/17 18:09 Dose: 17 gm Potassium Phos/Sodium Phos (Neutra-Phos) 1 pkt PO TID [facility] Last Admin: 12/13/17 18:09 Dose: 1 pkt Saliva Substitute (Saliva Substitute) 0 ml PO WM [facility] Last Admin: 12/13/17 17:10 Dose: 1 ml Vitamin A (Vitamin A & D Oint Ud Foilpak) 1 ea TOP TID [facility] Last Admin: 12/13/17 18:10 Dose: 1 ea Zolpidem Tartrate (Ambien) 5 mg PO HS PRN; Protocol PRN Reason: Insomnia - Labs Labs: 12/14/17 06:30 12/14/17 06:30 - Constitutional Appears: Non-toxic, No Acute Distress, Cachectic, Chronically Ill - Head Exam Head Exam: ATRAUMATIC, NORMOCEPHALIC - ENT Exam ENT Exam: Mucous Membranes Dry - Respiratory Exam Respiratory Exam: NORMAL BREATHING PATTERN - Cardiovascular Exam Cardiovascular Exam: +S1, +S2 - GI/Abdominal Exam GI & Abdominal Exam: Soft. absent: Firm, Guarding, Rigid, Tenderness, Rebound - Extremities Exam Extremities Exam: absent: Calf Tenderness, Pedal Edema - Back Exam Additional comments: 3.5 x 3.5 unstageable sacral ulcer with 2 cm x 1.5 cm black eschar, dressed with santyl and optifoam dressing - Neurological Exam Neurological Exam: Alert, Awake, Oriented x3 - Psychiatric Exam Psychiatric exam: Normal Affect, Normal Mood - Skin Additional comments: see back exam above, no othe ulcers on shoulders, elbows, hips, small scab on the lateral side of the right heel Assessment and Plan - Assessment and Plan (Free Text) Assessment: 72 yr old male with unstageable 3.5 x 3.5 cm unstageable ulcer on the sacrum Plan: - nursing to continue santyl and optifoam dressing changes - continue multipodus boots, air mattress, and turning q2 hours - discussed plan with Dr. Elliott, all further recs per him Codie Arnold, PGY 1
--- NOTE | 2017-12-14 09:26 | CP.PCM.PN ---
Subjective - Date & Time of Evaluation Date of Evaluation: 12/14/17 Time of Evaluation: 07:50 - Subjective Subjective: Doug Varner DO, IM Resident PGY-1 Hematology/Oncology Progress Note for Dr. Wolf Patient was seen and examined at bedside after the surgery team examined him. He states he is no longer feeling short of breath. Per RN, there were no acute events overnight and his anxiety has improved. Radiation treatment is due to start today with Dr. Vega. Objective - Vital Signs/Intake and Output Vital Signs (last 24 hours): Temp Pulse Resp BP Pulse Ox 97 F L 86 20 138/72 91 L 12/14/17 08:18 12/14/17 08:18 12/14/17 08:18 12/14/17 08:18 12/14/17 08:18 Intake and Output: 12/14/17 12/14/17 06:59 18:59 Intake Total 1675 Output Total 1300 Balance 375 - Medications Medications: Current Medications Acetaminophen (Tylenol 325mg Tab) 650 mg PO Q6H PRN PRN Reason: PAIN/FEVER Last Admin: 12/13/17 08:28 Dose: 650 mg Acetylcysteine (Acetylcysteine 20%) 3 ml IH [id number] [facility] Last Admin: 12/14/17 07:41 Dose: 3 ml Albuterol/Ipratropium (Duoneb 3 Mg/0.5 Mg (3 Ml) Ud) 3 ml IH Q6H PRN PRN Reason: Shortness of Breath Last Admin: 12/12/17 19:27 Dose: 3 ml Alprazolam (Xanax) 0.25 mg PO Q8H [facility] PRN Reason: Protocol Stop: 12/19/17 17:05 Last Admin: 12/14/17 00:30 Dose: Not Given Arformoterol Tartrate (Brovana) 15 mcg IH [id number] [facility] Last Admin: 12/14/17 07:41 Dose: 15 mcg Atorvastatin Calcium (Lipitor) 10 mg PO DIN [facility] Last Admin: 12/13/17 18:07 Dose: 10 mg Calcium Carbonate (Caltrate) 600 mg PO BID [facility] Last Admin: 12/13/17 18:05 Dose: 600 mg Collagenase (Santyl) 1 gm TOP DAILY [facility] Last Admin: 12/13/17 10:28 Dose: 1 applic Al Hydrox/Mg Hydrox/Simethicone 30 ml/Diphenhydramine HCl 75 mg/Lidocaine 30 ml 0 ml PO Q2H PRN PRN Reason: MOUTH/THROAT PAIN Docusate Sodium (Colace) 200 mg PO BID [facility] Last Admin: 12/13/17 18:06 Dose: 200 mg Dronabinol (Marinol) 2.5 mg PO AC [facility] Last Admin: 12/13/17 17:09 Dose: 2.5 mg Enoxaparin Sodium (Lovenox) 30 mg SC DAILY [facility] PRN Reason: Protocol Last Admin: 12/13/17 10:27 Dose: 30 mg Folic Acid (Folic Acid) 1 mg PO BID [facility] Last Admin: 12/13/17 18:06 Dose: 1 mg Dextrose/Sodium Chloride (Dextrose 5%/0.45% Ns 1000 Ml) 1,000 mls @ 85 mls/hr IV .[id number] [facility] Last Admin: 12/14/17 00:04 Dose: 85 mls/hr Meropenem (Merrem Iv 1 Gm Premix) 50 mls @ 100 mls/hr IVPB Q8 [facility] PRN Reason: Protocol Stop: 12/21/17 14:01 Last Admin: 12/14/17 06:03 Dose: 100 mls/hr Vancomycin HCl (Vancomycin 1gm) 1 gm in 250 mls @ 167 mls/hr IVPB Q12H [facility] PRN Reason: Protocol Stop: 12/21/17 13:46 Last Admin: 12/14/17 01:51 Dose: 167 mls/hr Potassium Chloride 60 meq/Magnesium Sulfate 2 gm/ Sodium Chloride 1,034 mls @ 125 mls/hr IV .[id number] [facility] Stop: 12/14/17 16:01 Lidocaine (Lidocaine 5%) 0 gm TOP TID [facility] Last Admin: 12/13/17 18:07 Dose: 1 applic Metoprolol Tartrate (Lopressor) 25 mg PO BID [facility] Last Admin: 12/13/17 18:07 Dose: 25 mg Mirtazapine (Remeron) 7.5 mg PO HS [facility] Last Admin: 12/13/17 22:37 Dose: Not Given Non-Formulary Medication (Dimethicone [Proshield Plus Skin Protectant]) 1 applic TOP DAILY [facility] Ondansetron HCl (Zofran Tab) 4 mg PO Q6 PRN PRN Reason: Nausea/Vomiting Oxycodone HCl (Oxycodone Immediate Release Tab) 5 mg PO Q6H PRN PRN Reason: Pain, severe (8-10) Pantoprazole Sodium (Protonix Ec Tab) 40 mg PO 0600 [facility] Last Admin: 12/14/17 06:04 Dose: 40 mg Polyethylene Glycol (Miralax) 17 gm PO BID [facility] Last Admin: 12/13/17 18:09 Dose: 17 gm Potassium Phos/Sodium Phos (Neutra-Phos) 1 pkt PO TID [facility] Last Admin: 12/13/17 18:09 Dose: 1 pkt Saliva Substitute (Saliva Substitute) 0 ml PO WM [facility] Last Admin: 12/13/17 17:10 Dose: 1 ml Vitamin A (Vitamin A & D Oint Ud Foilpak) 1 ea TOP TID [facility] Last Admin: 12/13/17 18:10 Dose: 1 ea Zolpidem Tartrate (Ambien) 5 mg PO HS PRN; Protocol PRN Reason: Insomnia - Labs Labs: 12/14/17 06:30 12/14/17 06:30 - Constitutional Appears: Non-toxic, No Acute Distress, Confused - Head Exam Head Exam: ATRAUMATIC, NORMAL INSPECTION, NORMOCEPHALIC - Eye Exam Eye Exam: Normal appearance, PERRL - ENT Exam ENT Exam: Mucous Membranes Moist - Neck Exam Neck Exam: Full ROM. absent: Lymphadenopathy, Tenderness, Thyromegaly - Respiratory Exam Respiratory Exam: Clear to Ausculation Bilateral, NORMAL BREATHING PATTERN. absent: Rales, Rhonchi, Wheezes - Cardiovascular Exam Cardiovascular Exam: REGULAR RHYTHM, RRR, +S1, +S2. absent: Gallop, JVD, Rubs, Murmur - GI/Abdominal Exam GI & Abdominal Exam: Soft. absent: Guarding, Rebound - Rectal Exam Rectal Exam: absent: Black Stool, Bloody Stool Additional comments: Unstageable sacral decubitus ulcer is improving - Extremities Exam Extremities Exam: Normal Capillary Refill. absent: Joint Swelling, Pedal Edema - Neurological Exam Neurological Exam: Alert, Awake - Psychiatric Exam Psychiatric exam: Anxious - Skin Skin Exam: Dry, Pallor. absent: Rash Assessment and Plan - Assessment and Plan (Free Text) Assessment: Mr. Monson is a 72 year old male with PMH of of stage IV NSCLC (with bony metastases, diagnosed last month, treated with palliative radiation by Dr. Vega) , COPD, R tibial pathological fx, sacral decubitus ulcer stage IV admitted for failure to thrive. He was diagnosed with lung biopsy and thoracentesis by Dr. Chandler last month. 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 Plan: Sepsis/Positive Blood Cultures -On vanc and merem -Echo without vegetations, showed moderate pulmonary HTN -WBC stable, continue to monitor -ID following Failure to thrive -Likely secondary to worsening tumor burden, pain, infection, decubitus ulcer -Swallow/speech evaluation completed, recs appreciated -Continue ensure with each meal, patient states he prefers vanilla ensure, continue mechanical soft diet -Marinol three times a day, give 30 minutes before each meal -Anxiety improving with xanax, remeron, will continue NSCLC Stage IV -He is s/p first round of carboplatin and pemetrexed -Dr. Vega will begin radiation to R tibia today -Received Aredia at infusion clinic prior to admission, will be able to continue as an outpatient once he has stabilized Hypokalemia and hypomagnesemia -Worsened from yesterday -60 meQ of K and 2 g of Mg in 1 L of NS ordered will infuse at 125 cc/hr Normocytic Anemia -Likely due to anemia of chronic disease, no obvious signs of bleeding at this time -He is s/p two units of PRBCs -H/H is upward trending from yesterday -Will continue to monitor R Tibial and foot pain -He is s/p repair by Dr. Fuller -We will start 5% topical lidocaine ointment TID for his continuing pain -Oxycodone 5 mg q6h PRN for pain -Podiatry consulted, appreciate recs Sacral Decubitus Ulcer -Per surgery, his ulcer is unstageable at this time -Q2 turns, air mattress, BID santyl application, multipodus boots ordered -Bedside PT evaluation ordered DVT/GI PPX: Lovenox and protonix Case and plan were reviewed and discussed in detail with my attending physician Dr. Maryann Varner, DO IM Resident PGY-1
[2017-12-14] MEDS: DIMETHICONE TOP SCH (10:00)
--- NOTE | 2017-12-14 10:17 | CP.PCM.PN ---
Subjective - Date & Time of Evaluation Date of Evaluation: 12/14/17 Time of Evaluation: 10:00 - Subjective Subjective: Mr Monson has stage IV lung cancer with a lesion at the right distal tibia. He is status post ORIF. He has currently increasing pain in the right leg from his lytic lesion. In discussing the case with Dr Wolf, we would concur that he would benefit from palliative radiation for symptomatic management and to prevent progression. The radiation would be prudent to prevent local progression of his bone disease which would affect his local stability and functionality. Given his sacral decubitus, it is important to get him mobile again. Objective - Vital Signs/Intake and Output Vital Signs (last 24 hours): Temp Pulse Resp BP Pulse Ox 97 F L 86 20 138/72 91 L 12/14/17 08:18 12/14/17 08:18 12/14/17 08:18 12/14/17 08:18 12/14/17 08:18 Intake and Output: 12/14/17 12/14/17 06:59 18:59 Intake Total 1675 Output Total 1300 Balance 375 - Medications Medications: Current Medications Acetaminophen (Tylenol 325mg Tab) 650 mg PO Q6H PRN PRN Reason: PAIN/FEVER Last Admin: 12/13/17 08:28 Dose: 650 mg Acetylcysteine (Acetylcysteine 20%) 3 ml IH [id number] [facility] Last Admin: 12/14/17 07:41 Dose: 3 ml Albuterol/Ipratropium (Duoneb 3 Mg/0.5 Mg (3 Ml) Ud) 3 ml IH Q6H PRN PRN Reason: Shortness of Breath Last Admin: 12/12/17 19:27 Dose: 3 ml Alprazolam (Xanax) 0.25 mg PO Q8H [facility] PRN Reason: Protocol Stop: 12/19/17 17:05 Last Admin: 12/14/17 00:30 Dose: Not Given Arformoterol Tartrate (Brovana) 15 mcg IH [id number] [facility] Last Admin: 12/14/17 07:41 Dose: 15 mcg Atorvastatin Calcium (Lipitor) 10 mg PO DIN [facility] Last Admin: 12/13/17 18:07 Dose: 10 mg Calcium Carbonate (Caltrate) 600 mg PO BID [facility] Last Admin: 12/13/17 18:05 Dose: 600 mg Collagenase (Santyl) 1 gm TOP DAILY [facility] Last Admin: 12/13/17 10:28 Dose: 1 applic Al Hydrox/Mg Hydrox/Simethicone 30 ml/Diphenhydramine HCl 75 mg/Lidocaine 30 ml 0 ml PO Q2H PRN PRN Reason: MOUTH/THROAT PAIN Docusate Sodium (Colace) 200 mg PO BID [facility] Last Admin: 12/13/17 18:06 Dose: 200 mg Dronabinol (Marinol) 2.5 mg PO AC [facility] Last Admin: 12/13/17 17:09 Dose: 2.5 mg Enoxaparin Sodium (Lovenox) 30 mg SC DAILY [facility] PRN Reason: Protocol Last Admin: 12/13/17 10:27 Dose: 30 mg Folic Acid (Folic Acid) 1 mg PO BID [facility] Last Admin: 12/13/17 18:06 Dose: 1 mg Dextrose/Sodium Chloride (Dextrose 5%/0.45% Ns 1000 Ml) 1,000 mls @ 85 mls/hr IV .[id number] [facility] Last Admin: 12/14/17 00:04 Dose: 85 mls/hr Meropenem (Merrem Iv 1 Gm Premix) 50 mls @ 100 mls/hr IVPB Q8 [facility] PRN Reason: Protocol Stop: 12/21/17 14:01 Last Admin: 12/14/17 06:03 Dose: 100 mls/hr Vancomycin HCl (Vancomycin 1gm) 1 gm in 250 mls @ 167 mls/hr IVPB Q12H [facility] PRN Reason: Protocol Stop: 12/21/17 13:46 Last Admin: 12/14/17 01:51 Dose: 167 mls/hr Potassium Chloride 60 meq/Magnesium Sulfate 2 gm/ Sodium Chloride 1,034 mls @ 125 mls/hr IV .Q8H17M [facility] Stop: 12/14/17 16:01 Potassium Chloride (Potassium Chloride 20 Meq/100 Ml) 20 meq in 100 mls @ 50 mls/hr IVPB Q2H [facility] Stop: 12/14/17 13:59 Lidocaine (Lidocaine 5%) 0 gm TOP TID [facility] Last Admin: 12/13/17 18:07 Dose: 1 applic Metoprolol Tartrate (Lopressor) 25 mg PO BID [facility] Last Admin: 12/13/17 18:07 Dose: 25 mg Mirtazapine (Remeron) 7.5 mg PO HS [facility] Last Admin: 12/13/17 22:37 Dose: Not Given Non-Formulary Medication (Dimethicone [Proshield Plus Skin Protectant]) 1 applic TOP DAILY [facility] Ondansetron HCl (Zofran Tab) 4 mg PO Q6 PRN PRN Reason: Nausea/Vomiting Oxycodone HCl (Oxycodone Immediate Release Tab) 5 mg PO Q6H PRN PRN Reason: Pain, severe (8-10) Pantoprazole Sodium (Protonix Ec Tab) 40 mg PO 0600 [facility] Last Admin: 12/14/17 06:04 Dose: 40 mg Polyethylene Glycol (Miralax) 17 gm PO BID [facility] Last Admin: 12/13/17 18:09 Dose: 17 gm Potassium Phos/Sodium Phos (Neutra-Phos) 1 pkt PO TID [facility] Last Admin: 12/13/17 18:09 Dose: 1 pkt Saliva Substitute (Saliva Substitute) 0 ml PO WM [facility] Last Admin: 12/13/17 17:10 Dose: 1 ml Vitamin A (Vitamin A & D Oint Ud Foilpak) 1 ea TOP TID [facility] Last Admin: 12/13/17 18:10 Dose: 1 ea Zolpidem Tartrate (Ambien) 5 mg PO HS PRN; Protocol PRN Reason: Insomnia - Labs Labs: 12/14/17 06:30 12/14/17 06:30
--- NOTE | 2017-12-14 11:11 | CP.PCM.CON ---
<Isai Hinson - Last Filed: 12/14/17 13:21> History of Present Illness - History of Present Illness History of Present Illness: Podiatry Consult Note- Dr. Caban 72 y.o male with PMHx of metastatic NSC lung cancer, HTN, HLD, intractable pain , COPD, anemia, s/p IM catrachito of right tibial fracture seen and evaluated for unkept feet. Patient reports pain to the bilateral foot and right lower extremity. Patient reports that he had catrachito placed in his right leg a few months ago. PMH:metastatic NSC lung cancer, right tibial fx s/p ORIF, HTN, HLD,intractable pain,COPD, anemia, anxiety, and constipation PSH: right tibial ORIF for pathologic fracture ALL:: ASA SH: former heavy smoker History taken from charts review Past Patient History - Infectious Disease Hx of Infectious Diseases: None - Past Social History Smoking Status: Former Smoker - CARDIAC Hx Cardiac Disorders: No - PULMONARY Hx Respiratory Disorders: No - NEUROLOGICAL Hx Neurological Disorder: No - HEENT Hx HEENT Problems: No - RENAL Hx Chronic Kidney Disease: No - ENDOCRINE/METABOLIC Hx Endocrine Disorders: No - HEMATOLOGICAL/ONCOLOGICAL Hx Cancer: Yes (lung) - INTEGUMENTARY Hx Dermatological Problems: No - MUSCULOSKELETAL/RHEUMATOLOGICAL Hx Musculoskeletal Disorders: Yes Hx Falls: Yes (mechanical fall) - GASTROINTESTINAL Hx Gastrointestinal Disorders: No - GENITOURINARY/GYNECOLOGICAL Hx Genitourinary Disorders: No - PSYCHIATRIC Hx Psychophysiologic Disorder: Yes Hx Anxiety: Yes - SURGICAL HISTORY Hx Surgeries: Yes Other/Comment: 11/14/17: right tibial nail and catrachito placement - ANESTHESIA Hx Anesthesia Reactions: No Hx Malignant Hyperthermia: No Meds Home Medications: Home Medication List Medication Instructions Recorded Confirmed Type Dronabinol [Marinol] 5 mg PO BID #0 12/11/17 Rx Metoprolol Tartrate [Lopressor] 25 mg PO BID #0 12/11/17 Rx Allergies/Adverse Reactions: Allergies Allergy/AdvReac Type Severity Reaction Status Date / Time aspirin AdvReac Intermediate NAUSEA Verified 11/06/17 11:48 - Medications Medications: Current Medications Acetaminophen (Tylenol 325mg Tab) 650 mg PO Q6H PRN PRN Reason: PAIN/FEVER Last Admin: 12/13/17 08:28 Dose: 650 mg Acetylcysteine (Acetylcysteine 20%) 3 ml IH [id number] [facility] Last Admin: 12/14/17 07:41 Dose: 3 ml Albuterol/Ipratropium (Duoneb 3 Mg/0.5 Mg (3 Ml) Ud) 3 ml IH Q6H PRN PRN Reason: Shortness of Breath Last Admin: 12/12/17 19:27 Dose: 3 ml Alprazolam (Xanax) 0.25 mg PO Q8H [facility] PRN Reason: Protocol Stop: 12/19/17 17:05 Last Admin: 12/14/17 00:30 Dose: Not Given Arformoterol Tartrate (Brovana) 15 mcg IH [id number] [facility] Last Admin: 12/14/17 07:41 Dose: 15 mcg Atorvastatin Calcium (Lipitor) 10 mg PO DIN [facility] Last Admin: 12/13/17 18:07 Dose: 10 mg Calcium Carbonate (Caltrate) 600 mg PO BID [facility] Last Admin: 12/13/17 18:05 Dose: 600 mg Collagenase (Santyl) 1 gm TOP DAILY [facility] Last Admin: 12/13/17 10:28 Dose: 1 applic Al Hydrox/Mg Hydrox/Simethicone 30 ml/Diphenhydramine HCl 75 mg/Lidocaine 30 ml 0 ml PO Q2H PRN PRN Reason: MOUTH/THROAT PAIN Docusate Sodium (Colace) 200 mg PO BID [facility] Last Admin: 12/13/17 18:06 Dose: 200 mg Dronabinol (Marinol) 2.5 mg PO AC [facility] Last Admin: 12/13/17 17:09 Dose: 2.5 mg Enoxaparin Sodium (Lovenox) 30 mg SC DAILY [facility] PRN Reason: Protocol Last Admin: 12/13/17 10:27 Dose: 30 mg Folic Acid (Folic Acid) 1 mg PO BID [facility] Last Admin: 12/13/17 18:06 Dose: 1 mg Dextrose/Sodium Chloride (Dextrose 5%/0.45% Ns 1000 Ml) 1,000 mls @ 85 mls/hr IV .[id number] [facility] Last Admin: 12/14/17 00:04 Dose: 85 mls/hr Meropenem (Merrem Iv 1 Gm Premix) 50 mls @ 100 mls/hr IVPB Q8 [facility] PRN Reason: Protocol Stop: 12/21/17 14:01 Last Admin: 12/14/17 06:03 Dose: 100 mls/hr Vancomycin HCl (Vancomycin 1gm) 1 gm in 250 mls @ 167 mls/hr IVPB Q12H [facility] PRN Reason: Protocol Stop: 12/21/17 13:46 Last Admin: 12/14/17 01:51 Dose: 167 mls/hr Potassium Chloride 60 meq/Magnesium Sulfate 2 gm/ Sodium Chloride 1,034 mls @ 125 mls/hr IV .Q8H17M [facility] Stop: 12/14/17 16:01 Potassium Chloride (Potassium Chloride 20 Meq/100 Ml) 20 meq in 100 mls @ 50 mls/hr IVPB Q2H [facility] Stop: 12/14/17 13:59 Lidocaine (Lidocaine 5%) 0 gm TOP TID [facility] Last Admin: 12/13/17 18:07 Dose: 1 applic Metoprolol Tartrate (Lopressor) 25 mg PO BID [facility] Last Admin: 12/13/17 18:07 Dose: 25 mg Mirtazapine (Remeron) 15 mg PO HS [facility] Non-Formulary Medication (Dimethicone [Proshield Plus Skin Protectant]) 1 applic TOP DAILY [facility] Ondansetron HCl (Zofran Tab) 4 mg PO Q6 PRN PRN Reason: Nausea/Vomiting Oxycodone HCl (Oxycodone Immediate Release Tab) 5 mg PO Q6H PRN PRN Reason: Pain, severe (8-10) Pantoprazole Sodium (Protonix Ec Tab) 40 mg PO 0600 [facility] Last Admin: 12/14/17 06:04 Dose: 40 mg Polyethylene Glycol (Miralax) 17 gm PO BID [facility] Last Admin: 12/13/17 18:09 Dose: 17 gm Potassium Phos/Sodium Phos (Neutra-Phos) 1 pkt PO TID [facility] Last Admin: 12/13/17 18:09 Dose: 1 pkt Saliva Substitute (Saliva Substitute) 0 ml PO WM [facility] Last Admin: 12/13/17 17:10 Dose: 1 ml Vitamin A (Vitamin A & D Oint Ud Foilpak) 1 ea TOP TID [facility] Last Admin: 12/13/17 18:10 Dose: 1 ea Zolpidem Tartrate (Ambien) 5 mg PO HS PRN; Protocol PRN Reason: Insomnia Physical Exam - Constitutional Appears: Well, Non-toxic, No Acute Distress - Extremities Exam Extremities exam: Negative for: calf tenderness Additional comments: VASC: DP and PT 1/4 bilaterally, CFT < 3 seconds x 10 digits, temperature gradient warm to cool, entire right lower extremity edema noted ORTHO: pain with palpation to the entire foot and right lower extremity NEURO: gross and protective sensation intact DERM: elongated nails painful to touch with subungal debris, yellow discoloration, thicken nails x10, xerosis noted to the entire lower extremity, hyperpigmented discoloration noted to entire lower extremity, no erythema, no streaking, no open lesions noted - Neurological Exam Neurological exam: Alert - Psychiatric Exam Psychiatric exam: Normal Affect Results - Vital Signs Recent Vital Signs: Last Vital Signs Temp 97 F L 12/14/17 08:18 Pulse 86 12/14/17 08:18 Resp 20 12/14/17 08:18 BP 138/72 12/14/17 08:18 Pulse Ox 91 L 12/14/17 08:18 - Labs Result Diagrams: 12/14/17 06:30 12/14/17 06:30 Labs: Laboratory Results - last 24 hr 12/14/17 12/14/17 06:30 06:30 WBC 12.2 H RBC 3.55 Hgb 10.4 L Hct 32.9 L MCV 92.7 MCH 29.3 MCHC 31.6 RDW 17.1 H Plt Count 281 MPV 9.6 Gran % 88.1 H Lymph % (Auto) 7.5 L Butler % (Auto) 4.1 Eos % (Auto) 0.2 L Baso % (Auto) 0.1 Gran # 10.78 H Lymph # (Auto) 0.9 L Butler # (Auto) 0.5 Eos # (Auto) 0.0 Baso # (Auto) 0.01 Sodium 136 Potassium 3.0 L Chloride 96 L Carbon Dioxide 35 H Anion Gap 7 L BUN 9 Creatinine 0.3 L Est GFR ( Amer) > 60 Est GFR (Non-Af Amer) > 60 Random Glucose 96 Calcium 8.2 L Phosphorus 1.5 L Magnesium 1.5 L Total Bilirubin 0.4 AST 34 ALT 21 Alkaline Phosphatase 111 Total Protein 5.3 L Albumin 2.5 L Globulin 2.8 Albumin/Globulin Ratio 0.9 L Assessment & Plan - Assessment and Plan (Free Text) Assessment: 72 y.o male with PMHx of metastatic NSC lung cancer, HTN, HLD, intractable pain , COPD, anemia, s/p IM catrachito of right tibial fracture with xerosis to lower extremity and elongated mycotic toenails x10 Plan: Patient seen and evaluated with attending Dr. Caban Charts, labs, vitals reviewed. Debrided elongated nails x10 with a nail nipper to normal length and thickness without complications. Patient tolerated the procedure well. Ordered AmLactin. To be applied to lower extremity once daily Please dispense multipodus boots. Must be worn at all times while in bed. Thank you Status post IM catrachito distal tibial fracture. Dr. Fuller consulted. Recommendations appreciated. Weightbearing status per Dr. Fuller Management of right lower extremity per Dr. Fuller Podiatry will continue to follow while in house. <Ameena Caban - Last Filed: 12/16/17 16:47> Meds - Medications Medications: Current Medications Acetaminophen (Tylenol 325mg Tab) 650 mg PO Q6H PRN PRN Reason: PAIN/FEVER Last Admin: 12/13/17 08:28 Dose: 650 mg Acetylcysteine (Acetylcysteine 20%) 3 ml IH [id number] [facility] Last Admin: 12/16/17 08:10 Dose: 3 ml Alprazolam (Xanax) 0.25 mg PO Q8H [facility] PRN Reason: Protocol Stop: 12/19/17 17:05 Last Admin: 12/16/17 09:59 Dose: 0.25 mg Arformoterol Tartrate (Brovana) 15 mcg IH [id number] [facility] Last Admin: 12/16/17 08:10 Dose: 15 mcg Atenolol (Tenormin) 12.5 mg PO BID [facility] Last Admin: 12/16/17 11:48 Dose: 12.5 mg Atorvastatin Calcium (Lipitor) 10 mg PO DIN [facility] Last Admin: 12/15/17 17:37 Dose: 10 mg Calcium Carbonate (Caltrate) 600 mg PO BID [facility] Last Admin: 12/16/17 09:59 Dose: 600 mg Collagenase (Santyl) 1 gm TOP DAILY [facility] Last Admin: 12/16/17 10:02 Dose: 1 applic Al Hydrox/Mg Hydrox/Simethicone 30 ml/Diphenhydramine HCl 75 mg/Lidocaine 30 ml 0 ml PO Q2H PRN PRN Reason: MOUTH/THROAT PAIN Docusate Sodium (Colace) 200 mg PO BID [facility] Last Admin: 12/16/17 09:58 Dose: 200 mg Enoxaparin Sodium (Lovenox) 30 mg SC DAILY [facility] PRN Reason: Protocol Last Admin: 12/16/17 10:00 Dose: 30 mg Folic Acid (Folic Acid) 1 mg PO BID [facility] Last Admin: 12/16/17 09:59 Dose: 1 mg Dextrose/Sodium Chloride (Dextrose 5%/0.45% Ns 1000 Ml) 1,000 mls @ 85 mls/hr IV .[id number] [facility] Last Admin: 12/16/17 09:56 Dose: 85 mls/hr Meropenem (Merrem Iv 1 Gm Premix) 50 mls @ 100 mls/hr IVPB Q8 [facility] PRN Reason: Protocol Stop: 12/21/17 14:01 Last Admin: 12/16/17 15:00 Dose: 100 mls/hr Vancomycin HCl (Vancomycin 1gm) 1 gm in 250 mls @ 167 mls/hr IVPB Q12H [facility] PRN Reason: Protocol Stop: 12/21/17 13:46 Last Admin: 12/16/17 16:01 Dose: 167 mls/hr Lactic Acid (Lac-Hydrin 12% Cream (140 G)) 1 ea TOP DAILY [facility] Last Admin: 12/16/17 10:05 Dose: 1 appl Levalbuterol HCl (Xopenex) 0.63 mg IH [id number] PRN PRN Reason: Shortness of Breath Lidocaine (Lidocaine 5%) 0 gm TOP TID [facility] Last Admin: 12/16/17 13:21 Dose: 1 applic Megestrol Acetate (Megace) 40 mg PO DAILY [facility] Last Admin: 12/16/17 10:00 Dose: 40 mg Mirtazapine (Remeron) 15 mg PO HS [facility] Last Admin: 12/15/17 22:26 Dose: 15 mg Non-Formulary Medication (Dimethicone [Proshield Plus Skin Protectant]) 1 applic TOP DAILY [facility] Last Admin: 12/16/17 10:03 Dose: Not Given Ondansetron HCl (Zofran Tab) 4 mg PO Q6 PRN PRN Reason: Nausea/Vomiting Last Admin: 12/15/17 15:18 Dose: 4 mg Oxycodone HCl (Oxycodone Immediate Release Tab) 5 mg PO Q6H PRN PRN Reason: Pain, severe (8-10) Last Admin: 12/16/17 01:45 Dose: 5 mg Pantoprazole Sodium (Protonix Ec Tab) 40 mg PO 0600 [facility] Last Admin: 12/15/17 05:00 Dose: 40 mg Polyethylene Glycol (Miralax) 17 gm PO BID [facility] Last Admin: 12/16/17 10:02 Dose: 17 gm Potassium Phos/Sodium Phos (Neutra-Phos) 1 pkt PO TID [facility] Last Admin: 12/16/17 13:22 Dose: Not Given Saliva Substitute (Saliva Substitute) 0 ml PO WM [facility] Last Admin: 12/16/17 13:22 Dose: Not Given Vitamin A (Vitamin A & D Oint Ud Foilpak) 1 ea TOP TID [facility] Last Admin: 12/16/17 13:22 Dose: 1 ea Zolpidem Tartrate (Ambien) 5 mg PO HS PRN; Protocol PRN Reason: Insomnia Last Admin: 12/15/17 22:29 Dose: 5 mg Results - Vital Signs Recent Vital Signs: Last Vital Signs Temp 97.8 F 12/16/17 08:08 Pulse 95 H 12/16/17 11:48 Resp 20 12/16/17 08:08 BP 122/61 12/16/17 11:48 Pulse Ox 99 12/15/17 17:24 - Labs Result Diagrams: 12/16/17 08:30 12/16/17 08:30 Labs: Laboratory Results - last 24 hr 12/16/17 12/16/17 08:30 08:30 WBC 11.8 H RBC 3.15 L Hgb 9.3 L Hct 29.4 L MCV 93.3 MCH 29.5 MCHC 31.6 RDW 17.3 H Plt Count 214 MPV 9.6 Gran % 85.7 H Lymph % (Auto) 8.5 L Butler % (Auto) 5.3 Eos % (Auto) 0.4 L Baso % (Auto) 0.1 Gran # 10.12 H Lymph # (Auto) 1.0 L Butler # (Auto) 0.6 Eos # (Auto) 0.1 Baso # (Auto) 0.01 Sodium 134 Potassium 2.8 L* Chloride 93 L Carbon Dioxide 37 H Anion Gap 7 L BUN 6 L Creatinine 0.3 L Est GFR ( Amer) > 60 Est GFR (Non-Af Amer) > 60 Random Glucose 114 H Calcium 7.0 L Magnesium 1.8 Total Bilirubin 0.5 AST 23 ALT 27 Alkaline Phosphatase 97 Total Protein 4.9 L Albumin 2.2 L Globulin 2.7 Albumin/Globulin Ratio 0.8 L Attending/Attestation - Attestation I have personally seen and examined this patient.: Yes I have fully participated in the care of the patient.: Yes I have reviewed all pertinent clinical information: Yes
--- NOTE | 2017-12-14 11:18 | CP.PCM.PN ---
Subjective - Date & Time of Evaluation Date of Evaluation: 12/14/17 Time of Evaluation: 11:00 - Subjective Subjective: Weak, lethargic Objective - Vital Signs/Intake and Output Vital Signs (last 24 hours): Temp Pulse Resp BP Pulse Ox 97 F L 86 20 138/72 91 L 12/14/17 08:18 12/14/17 08:18 12/14/17 08:18 12/14/17 08:18 12/14/17 08:18 Intake and Output: 12/14/17 12/14/17 06:59 18:59 Intake Total 1675 Output Total 1300 Balance 375 - Medications Medications: Current Medications Acetaminophen (Tylenol 325mg Tab) 650 mg PO Q6H PRN PRN Reason: PAIN/FEVER Last Admin: 12/13/17 08:28 Dose: 650 mg Acetylcysteine (Acetylcysteine 20%) 3 ml IH [id number] [facility] Last Admin: 12/14/17 07:41 Dose: 3 ml Albuterol/Ipratropium (Duoneb 3 Mg/0.5 Mg (3 Ml) Ud) 3 ml IH Q6H PRN PRN Reason: Shortness of Breath Last Admin: 12/12/17 19:27 Dose: 3 ml Alprazolam (Xanax) 0.25 mg PO Q8H [facility] PRN Reason: Protocol Stop: 12/19/17 17:05 Last Admin: 12/14/17 00:30 Dose: Not Given Arformoterol Tartrate (Brovana) 15 mcg IH [id number] [facility] Last Admin: 12/14/17 07:41 Dose: 15 mcg Atorvastatin Calcium (Lipitor) 10 mg PO DIN [facility] Last Admin: 12/13/17 18:07 Dose: 10 mg Calcium Carbonate (Caltrate) 600 mg PO BID [facility] Last Admin: 12/13/17 18:05 Dose: 600 mg Collagenase (Santyl) 1 gm TOP DAILY [facility] Last Admin: 12/13/17 10:28 Dose: 1 applic Al Hydrox/Mg Hydrox/Simethicone 30 ml/Diphenhydramine HCl 75 mg/Lidocaine 30 ml 0 ml PO Q2H PRN PRN Reason: MOUTH/THROAT PAIN Docusate Sodium (Colace) 200 mg PO BID [facility] Last Admin: 12/13/17 18:06 Dose: 200 mg Dronabinol (Marinol) 2.5 mg PO [facility] Last Admin: 12/13/17 17:09 Dose: 2.5 mg Enoxaparin Sodium (Lovenox) 30 mg SC DAILY [facility] PRN Reason: Protocol Last Admin: 12/13/17 10:27 Dose: 30 mg Folic Acid (Folic Acid) 1 mg PO BID [facility] Last Admin: 12/13/17 18:06 Dose: 1 mg Dextrose/Sodium Chloride (Dextrose 5%/0.45% Ns 1000 Ml) 1,000 mls @ 85 mls/hr IV .[id number] [facility] Last Admin: 12/14/17 00:04 Dose: 85 mls/hr Meropenem (Merrem Iv 1 Gm Premix) 50 mls @ 100 mls/hr IVPB Q8 [facility] PRN Reason: Protocol Stop: 12/21/17 14:01 Last Admin: 12/14/17 06:03 Dose: 100 mls/hr Vancomycin HCl (Vancomycin 1gm) 1 gm in 250 mls @ 167 mls/hr IVPB Q12H [facility] PRN Reason: Protocol Stop: 12/21/17 13:46 Last Admin: 12/14/17 01:51 Dose: 167 mls/hr Potassium Chloride 60 meq/Magnesium Sulfate 2 gm/ Sodium Chloride 1,034 mls @ 125 mls/hr IV .Q8H17M [facility] Stop: 12/14/17 16:01 Potassium Chloride (Potassium Chloride 20 Meq/100 Ml) 20 meq in 100 mls @ 50 mls/hr IVPB Q2H [facility] Stop: 12/14/17 13:59 Lidocaine (Lidocaine 5%) 0 gm TOP TID [facility] Last Admin: 12/13/17 18:07 Dose: 1 applic Metoprolol Tartrate (Lopressor) 25 mg PO BID [facility] Last Admin: 12/13/17 18:07 Dose: 25 mg Mirtazapine (Remeron) 15 mg PO HS [facility] Non-Formulary Medication (Dimethicone [Proshield Plus Skin Protectant]) 1 applic TOP DAILY [facility] Ondansetron HCl (Zofran Tab) 4 mg PO Q6 PRN PRN Reason: Nausea/Vomiting Oxycodone HCl (Oxycodone Immediate Release Tab) 5 mg PO Q6H PRN PRN Reason: Pain, severe (8-10) Pantoprazole Sodium (Protonix Ec Tab) 40 mg PO 0600 [facility] Last Admin: 12/14/17 06:04 Dose: 40 mg Polyethylene Glycol (Miralax) 17 gm PO BID [facility] Last Admin: 12/13/17 18:09 Dose: 17 gm Potassium Phos/Sodium Phos (Neutra-Phos) 1 pkt PO TID [facility] Last Admin: 12/13/17 18:09 Dose: 1 pkt Saliva Substitute (Saliva Substitute) 0 ml PO WM [facility] Last Admin: 12/13/17 17:10 Dose: 1 ml Vitamin A (Vitamin A & D Oint Ud Foilpak) 1 ea TOP TID [facility] Last Admin: 12/13/17 18:10 Dose: 1 ea Zolpidem Tartrate (Ambien) 5 mg PO HS PRN; Protocol PRN Reason: Insomnia - Labs Labs: 12/14/17 06:30 12/14/17 06:30 - Constitutional Appears: Cachectic, Chronically Ill - Eye Exam Eye Exam: Normal appearance, PERRL - ENT Exam ENT Exam: Mucous Membranes Moist, Normal Oropharynx - Neck Exam Neck Exam: Normal Inspection - Respiratory Exam Respiratory Exam: Decreased Breath Sounds, NORMAL BREATHING PATTERN - Cardiovascular Exam Cardiovascular Exam: REGULAR RHYTHM, +S1, +S2 - GI/Abdominal Exam GI & Abdominal Exam: Soft, Normal Bowel Sounds - Neurological Exam Neurological Exam: Alert - Skin Skin Exam: Dry, Pallor Assessment and Plan - Assessment and Plan (Free Text) Assessment: 72 year old male with history of metastatic lung cancer, right tibial fx s/p ORIF, anemia and sacral dedubiti who is admitted with bacteremia, anemia, anorexia, cachexia, failure to thrive and intractable pain. The patient is lethargic, weak. Minimally conversive today. I contacted his daughter Carlee via phone, discussion was follow up to previous conversation we had regarding goals of care and advance care planning. Family has not really spoken with patient regarding his wishes. Carlee states she is not sure what dad wants. Encouraged family meeting with myself and Oriana GAN to assist in establishing goals and advance care planning. Ms Painter and I met with patients daughter Eli later in the day. Eli also aware of fathers medical condition. Reiterated earlier conversations that were had with Carlee regarding goals of care and advance care planning. Eli expressed that her mother is having hard time adjusting to father's illness and very emotional at this time. Encouraged Eli to speak with her father about resuscitation wishes and appointing health care proxy. Ms. Painter explained various discharge options, i.e.> GABO/ home with services/ hospice. Each option explained in detail, questions answered. Psychosocial support provided. Time spent with family members in goals of care and adcace care planning discussion, 60 minutes Plan: Sepsis/bacteremia: On Vancomycin and Merrem, Echo negative for vegetation,other source of infection? ID following. NSCL : Being followed by Dr Vega and Dr Wolf, Palliative RT recommended once stable Failure to thrive: Dietary counseling, dietary supplements, Remeron started for mood/appetite enhancement Anemia: s/p PRBC's, Monitor CBC Pain: Oxycodone IR as needed Gaols of care and advance care planning
--- NOTE | 2017-12-14 12:03 | PN ---
DATE: 12/14/2017 SUBJECTIVE: In short, the patient is 72-year-old male with multiple medical issues including [id number] lung cancer with bone mets, right hip pathological fracture. The patient has sacral ulcers stage IV. The patient was admitted on the medical side for failure to thrive and lightheadedness. Psych consult was involved because of depressive symptoms which is expected. This functional tester typewriters initially saw the patient yesterday. The patient was started on Remeron 7.5, Zoloft was discontinued and the patient was on Xanax as well as Ambien. The patient was seen initially yesterday. Please see initial consultation for more detailed information. The patient was followed up today. The patient presented better to compare with yesterday, sitting in the chair. The patient is minimally interactive with the interview, yes-no answers only. The patient reported that he did not sleep very well, willing to increase the Remeron. The patient said that his mood is so-so, but the patient denied that he has any thoughts of harming himself or others. Vital signs seems to be stable. Temperature 97, pulse is 86, blood pressure 138/72, respirations 20, oxygen saturation is 91. Medications reviewed. Tylenol and acetylcysteine, albuterol, Xanax 0.25 mg p.o. every 8 hours scheduled. Brovana, Lipitor, calcium carbonate, collagenase, dextrose, Colace, Marinol, Lovenox, folic acid, lidocaine, meropenem, metoprolol, Remeron will be increased to 15 mg at the nighttime, Zofran if needed, Protonix, MiraLax, Neutra-Phos, saliva substitute, vancomycin as well as Ambien as needed and vitamin A. Labs reviewed. Most recent was from today. WBC cells 12.2, hemoglobin 10.4, hematocrit 32.9. Blood gas reviewed. Chemistry reviewed. Potassium is low today, 3. Microbiology, coagulase-negative staphylococcus in blood culture. MENTAL STATUS EXAM: The patient appears to be depressed and withdrawn, intermittent eye contact. Speech was underproductive, low volume, yes-no answers. Mood described as so-so. Affect was constricted, but the patient was able to smile couple of times during the interview. Thought process seems to be coherent and goal directed. Thought content, the patient denied thoughts of harming himself or others. Denied psychotic symptoms. The patient does not appear to be psychotic. Insight and judgment seems to be fair. Impulses are well controlled. 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 Rule out adjustment disorder with depressed and anxious mood. PLAN: Remeron was increased today to 15 mg at the nighttime, which will be boosting the patient's appetite and help the patient with depression as well as insomnia. Zoloft was discontinued yesterday. Continue Xanax. Comfort measures. Also, the patient was seen by Palliative Care. Advance directives need to be discussed with the patient and his family because prognosis from the medical standpoint seems to be very poor. Supportive therapy, empathic listening was provided. Over the weekend, Dr. Leiva will be seeing patient. Should you have any questions, give me a call back. Thank you very much for letting me participate in the care of your patient Mohini Oro MD
--- NOTE | 2017-12-14 12:31 | CP.PCM.PN ---
Subjective - Date & Time of Evaluation Date of Evaluation: 12/14/17 Time of Evaluation: 09:55 - Subjective Subjective: No fevers but patient is weak and lethargic. Objective - Vital Signs/Intake and Output Vital Signs (last 24 hours): Temp Pulse Resp BP Pulse Ox 97 F L 86 20 138/72 91 L 12/14/17 08:18 12/14/17 08:18 12/14/17 08:18 12/14/17 08:18 12/14/17 08:18 Intake and Output: 12/14/17 12/14/17 06:59 18:59 Intake Total 1675 Output Total 1300 Balance 375 - Medications Medications: Current Medications Acetaminophen (Tylenol 325mg Tab) 650 mg PO Q6H PRN PRN Reason: PAIN/FEVER Last Admin: 12/13/17 08:28 Dose: 650 mg Acetylcysteine (Acetylcysteine 20%) 3 ml IH [id number] [facility] Last Admin: 12/14/17 07:41 Dose: 3 ml Albuterol/Ipratropium (Duoneb 3 Mg/0.5 Mg (3 Ml) Ud) 3 ml IH Q6H PRN PRN Reason: Shortness of Breath Last Admin: 12/12/17 19:27 Dose: 3 ml Alprazolam (Xanax) 0.25 mg PO Q8H [facility] PRN Reason: Protocol Stop: 12/19/17 17:05 Last Admin: 12/14/17 00:30 Dose: Not Given Arformoterol Tartrate (Brovana) 15 mcg IH [id number] [facility] Last Admin: 12/14/17 07:41 Dose: 15 mcg Atorvastatin Calcium (Lipitor) 10 mg PO DIN [facility] Last Admin: 12/13/17 18:07 Dose: 10 mg Calcium Carbonate (Caltrate) 600 mg PO BID [facility] Last Admin: 12/13/17 18:05 Dose: 600 mg Collagenase (Santyl) 1 gm TOP DAILY [facility] Last Admin: 12/13/17 10:28 Dose: 1 applic Al Hydrox/Mg Hydrox/Simethicone 30 ml/Diphenhydramine HCl 75 mg/Lidocaine 30 ml 0 ml PO Q2H PRN PRN Reason: MOUTH/THROAT PAIN Docusate Sodium (Colace) 200 mg PO BID [facility] Last Admin: 12/13/17 18:06 Dose: 200 mg Dronabinol (Marinol) 2.5 mg PO AC [facility] Last Admin: 12/13/17 17:09 Dose: 2.5 mg Enoxaparin Sodium (Lovenox) 30 mg SC DAILY [facility] PRN Reason: Protocol Last Admin: 12/13/17 10:27 Dose: 30 mg Folic Acid (Folic Acid) 1 mg PO BID [facility] Last Admin: 12/13/17 18:06 Dose: 1 mg Dextrose/Sodium Chloride (Dextrose 5%/0.45% Ns 1000 Ml) 1,000 mls @ 85 mls/hr IV .[id number] [facility] Last Admin: 12/14/17 00:04 Dose: 85 mls/hr Meropenem (Merrem Iv 1 Gm Premix) 50 mls @ 100 mls/hr IVPB Q8 [facility] PRN Reason: Protocol Stop: 12/21/17 14:01 Last Admin: 12/14/17 06:03 Dose: 100 mls/hr Vancomycin HCl (Vancomycin 1gm) 1 gm in 250 mls @ 167 mls/hr IVPB Q12H [facility] PRN Reason: Protocol Stop: 12/21/17 13:46 Last Admin: 12/14/17 01:51 Dose: 167 mls/hr Potassium Chloride 60 meq/Magnesium Sulfate 2 gm/ Sodium Chloride 1,034 mls @ 125 mls/hr IV .[id number] [facility] Stop: 12/14/17 16:01 Potassium Chloride (Potassium Chloride 20 Meq/100 Ml) 20 meq in 100 mls @ 50 mls/hr IVPB Q2H [facility] Stop: 12/14/17 13:59 Lidocaine (Lidocaine 5%) 0 gm TOP TID [facility] Last Admin: 12/13/17 18:07 Dose: 1 applic Metoprolol Tartrate (Lopressor) 25 mg PO BID [facility] Last Admin: 12/13/17 18:07 Dose: 25 mg Mirtazapine (Remeron) 7.5 mg PO HS [facility] Last Admin: 12/13/17 22:37 Dose: Not Given Non-Formulary Medication (Dimethicone [Proshield Plus Skin Protectant]) 1 applic TOP DAILY [facility] Ondansetron HCl (Zofran Tab) 4 mg PO Q6 PRN PRN Reason: Nausea/Vomiting Oxycodone HCl (Oxycodone Immediate Release Tab) 5 mg PO Q6H PRN PRN Reason: Pain, severe (8-10) Pantoprazole Sodium (Protonix Ec Tab) 40 mg PO 0600 [facility] Last Admin: 12/14/17 06:04 Dose: 40 mg Polyethylene Glycol (Miralax) 17 gm PO BID [facility] Last Admin: 12/13/17 18:09 Dose: 17 gm Potassium Phos/Sodium Phos (Neutra-Phos) 1 pkt PO TID [facility] Last Admin: 12/13/17 18:09 Dose: 1 pkt Saliva Substitute (Saliva Substitute) 0 ml PO WM [facility] Last Admin: 12/13/17 17:10 Dose: 1 ml Vitamin A (Vitamin A & D Oint Ud Foilpak) 1 ea TOP TID [facility] Last Admin: 12/13/17 18:10 Dose: 1 ea Zolpidem Tartrate (Ambien) 5 mg PO HS PRN; Protocol PRN Reason: Insomnia - Labs Labs: 12/14/17 06:30 12/14/17 06:30 - Constitutional Appears: Chronically Ill - Head Exam Head Exam: NORMAL INSPECTION - Respiratory Exam Respiratory Exam: Decreased Breath Sounds - Cardiovascular Exam Cardiovascular Exam: +S1, +S2 - GI/Abdominal Exam GI & Abdominal Exam: Soft. absent: Tenderness Assessment and Plan - Assessment and Plan (Free Text) Plan: Assessment Sepsis due to coagulase negative staph bacteremia, suspicious for port-a-cath as the source, R/O endocarditis (although 2D echo is negative for vegetations), with infected unstageable sacral ulcer (skin and skin structure infection, R/O osteomyelitis) metastatic non-small cell lung cancer cachexia COPD chronic anemia anxiety dyslipidemia HTN Plan continue Vancomycin and will check Vanco trough; follow up repeat blood cx done yesterday reviewed 2D echo which does not show vegetations will need duplex ultrasound of veins associated with port-a-cath to rule out thrombosis will monitor clinically check sacral xray overall prognosis is poor
[2017-12-14] MEDS: Enoxaparin 30 mg Syringe SC SCH (12:48)
[2017-12-14] MEDS: Potassium & Sodium Phosphate PO SCH ×3 (12:48→18:22)
[2017-12-14] MEDS: Vitamins A & D Oint UD Foilpak TOP SCH ×3 (12:50→18:22)
[2017-12-14] MEDS: Collagenase 250 Units/gm Ointment(30 gm) TOP SCH (12:50)
[2017-12-14] MEDS: Saliva Substitute 44.3 ML PO SCH ×2 (12:51→18:24)
[2017-12-14] MEDS: Lidocaine 5% Oint(35 gm) TOP SCH ×3 (12:51→18:24)
[2017-12-14] MEDS: POLYETHYLENE GLYCOL 3350 17 GM/Dose PACKET PO SCH ×2 (12:52→18:14)
--- NOTE | 2017-12-14 16:35 | RAD ---
Date of service: 12/14/2017 PROCEDURE: Radiographs of the Sacrum and Coccyx HISTORY: eval for osteo, sacral decub COMPARISON: None available. TECHNIQUE: Frontal and lateral views of the sacrum and coccyx FINDINGS: BONES: Sacrum and coccyx unremarkable. No fracture or focal lesion. SACROILIAC JOINTS: Unremarkable. OTHER FINDINGS: None. IMPRESSION: Unremarkable radiographs of the sacrum and coccyx.
--- NOTE | 2017-12-15 01:21 | PN ---
DATE: 12/14/2017 PULMONARY PROGRESS NOTE REFERRING PHYSICIAN: Adolfo Durbin MD SUBJECTIVE: The patient is lying in the bed, sleepy. Family is at bedside. Night was unremarkable. Still has some cough, not much sputum production. No nausea, no vomiting, no diarrhea. No leg pain or leg swelling. OBJECTIVE: GENERAL: In no acute distress. VITAL SIGNS: Temperature is 98, heart rate 81, respiratory rate 21, blood pressure 113/71, pulse ox 92% on room air. HEENT: Moist mucous membrane. No ulcer or oral thrush noted. NECK: Supple. No JVD. LUNGS: Scattered rhonchi. HEART: S1 and S2. ABDOMEN: Soft, nontender. No organomegaly. EXTREMITIES: No edema. NEUROLOGIC: Awake, alert, and follows simple command. MEDICATIONS: He is on Mucomyst inhaled twice a day, Ambien 5 mg at bedtime p.r.n., Brovana inhaled twice a day, calcium carbonate 600 mg twice a day, Colace 200 mg twice a day, D5 half-normal saline 85 mL/hour, DuoNeb every 6 hours p.r.n., folic acid 1 mg twice a day, lidocaine patch at affected area, Lipitor 10 mg daily, metoprolol tartrate 25 mg twice a day, Lovenox 30 mg subcu daily, Marinol 2.5 mg before meals, meropenem 1 g IV every 8 hours, MiraLax 17 g twice a day, Neutra-Phos three times a day, OxyContin immediate release 5 mg every 6 hours p.r.n., Protonix 40 mg daily, Remeron 50 mg at bedtime, 1 g topically daily, Tylenol p.r.n., vancomycin 1 g IV every 12 hours, vitamin A and D alignment three times a day, Xanax 0.25 mg every 8 hours, Zofran p.r.n. basis. LABORATORY DATA: Shows hemoglobin 10.4, hematocrit 32.9, WBC 12.2, and platelets 281. Sodium 136, potassium 2, chloride 96, bicarbonate 35. BUN 9, creatinine 0.3. Glucose 96. Calcium 8.2, phosphorus 1.5, and magnesium 1.5. AST 34, ALT 21, and alk phos is 111. Albumin is 2.5. Blood culture has coag-negative staph. Repeat blood culture from yesterday, so far there is no growth. IMPRESSION AND PLAN: Metastatic lung cancer involving the bones, new vertebral lesion, also have a distal tibial pathological fracture, chronic obstructive lung disease, left upper lobe atelectasis, malnutrition, decubiti ulcer, rule out oropharyngeal dysphagia. We will get Speech Therapy to see the patient. Continue bronchodilator. Keep head at 45 degrees. Antibiotics for bacteremia. Wound care. Out of bed to chair. Physical therapy. Thank you and we will follow with you. Judit Dent MD
[2017-12-15] MEDS: Vancomycin 1gm in NS 250ml 1 GM/250 ML BAG IVPB SCH ×2 (01:35→14:10)
[2017-12-15] MEDS: Pantoprazole 40 mg EC Tab PO SCH (05:00)
[2017-12-15] MEDS: Meropenem IV 1 gm in NS 50 ML IVPB SCH ×3 (05:01→22:25)
[2017-12-15 06:41] LABS: EOS % 0.1 % (1.5-5.0); GRAN # 10.39 (1.4-6.5); GRAN % 86.1 % (50.0-68.0); HEMOGLOBIN 10.1 g/dL (14.0-18.0); LYMPH # 1.1 (1.2-3.4); MEAN CELL VOLUME 92.5 fl (80.0-105.0); MEAN CORPUSCULAR HEMOGLOBIN 29.2 pg (25.0-35.0); MEAN CORPUSCULAR HGB CONC 31.6 g/dl (31.0-37.0); MEAN PLATELET VOLUME 9.3 fl (7.0-11.0); MONO # 0.6 (0.1-0.6); MONO % 4.8 % (1.0-6.0); RBC 3.46 10^6/uL (3.5-6.1); RED CELL DISTRIBUTION WIDTH 17.1 % (11.5-14.5); WHITE BLOOD COUNT 12.1 10^3/ul (4.5-11.0)
[2017-12-15 06:49] LABS: ALB/GLOB RATIO 0.8 (1.1-1.8); ALBUMIN 2.3 g/dL (3.0-4.8); ALT/SGPT 27 U/L (7-56); AST/SGOT 28 U/L (17-59); BLOOD UREA NITROGEN 5 mg/dL (7-21); CALCIUM 7.4 mg/dL (8.4-10.5); GFR AFRICAN-AMERICAN > 60; GFR NON-AFRICAN AMERICAN > 60
[2017-12-15] MEDS: Arformoterol 15 mcg/2 ml Inh Sol IH SCH ×2 (07:31→19:51)
[2017-12-15] MEDS: Acetylcysteine 20% Inhal Soln (4ml) IH SCH ×2 (07:35→19:51)
[2017-12-15] MEDS ORDERED: Magnesium 2 gm/50 ml NS 2 GM/50 ML BAG IVPB ONE (09:12)
--- NOTE | 2017-12-15 09:29 | CP.PCM.PN ---
Subjective - Date & Time of Evaluation Date of Evaluation: 12/15/17 Time of Evaluation: 07:00 - Subjective Subjective: Doug Varner DO, IM Resident PGY-1 Hematology/Oncology Progress Note for Dr. Wolf Patient was seen and examined at bedside. He states that he only wishes to relax and is not oriented to place or situation. He does remember receiving radiation yesterday and reports that the pain in his right lower leg is improved. Per RN, he continues to have poor oral intake and no appetite. Patient states that he would prefer to have the vanilla flavored ensure supplements. We spoke to his daughter at bedside informing her that his most recent CT chest was encouraging. Objective - Vital Signs/Intake and Output Vital Signs (last 24 hours): Temp Pulse Resp BP Pulse Ox 97.0 F L 91 H 20 115/63 99 12/15/17 06:00 12/15/17 06:00 12/15/17 06:00 12/15/17 06:00 12/15/17 06:00 Intake and Output: 12/15/17 12/15/17 06:59 18:59 Intake Total 2780 Output Total 800 Balance 1979 - Medications Medications: Current Medications Acetaminophen (Tylenol 325mg Tab) 650 mg PO Q6H PRN PRN Reason: PAIN/FEVER Last Admin: 12/13/17 08:28 Dose: 650 mg Acetylcysteine (Acetylcysteine 20%) 3 ml IH [id number] [facility] Last Admin: 12/15/17 07:35 Dose: Not Given Albuterol/Ipratropium (Duoneb 3 Mg/0.5 Mg (3 Ml) Ud) 3 ml IH Q6H PRN PRN Reason: Shortness of Breath Last Admin: 12/12/17 19:27 Dose: 3 ml Alprazolam (Xanax) 0.25 mg PO Q8H [facility] PRN Reason: Protocol Stop: 12/19/17 17:05 Last Admin: 12/14/17 18:22 Dose: 0.25 mg Arformoterol Tartrate (Brovana) 15 mcg IH [id number] [facility] Last Admin: 12/15/17 07:31 Dose: 15 mcg Atorvastatin Calcium (Lipitor) 10 mg PO DIN [facility] Last Admin: 12/14/17 18:22 Dose: 10 mg Calcium Carbonate (Caltrate) 600 mg PO BID [facility] Last Admin: 12/14/17 19:10 Dose: Not Given Collagenase (Santyl) 1 gm TOP DAILY [facility] Last Admin: 12/14/17 12:50 Dose: 1 applic Al Hydrox/Mg Hydrox/Simethicone 30 ml/Diphenhydramine HCl 75 mg/Lidocaine 30 ml 0 ml PO Q2H PRN PRN Reason: MOUTH/THROAT PAIN Docusate Sodium (Colace) 200 mg PO BID [facility] Last Admin: 12/14/17 18:13 Dose: Not Given Dronabinol (Marinol) 2.5 mg PO AC [facility] Last Admin: 12/14/17 18:22 Dose: 2.5 mg Enoxaparin Sodium (Lovenox) 30 mg SC DAILY [facility] PRN Reason: Protocol Last Admin: 12/14/17 12:48 Dose: 30 mg Folic Acid (Folic Acid) 1 mg PO BID [facility] Last Admin: 12/14/17 18:22 Dose: 1 mg Dextrose/Sodium Chloride (Dextrose 5%/0.45% Ns 1000 Ml) 1,000 mls @ 85 mls/hr IV .[id number] [facility] Last Admin: 12/14/17 22:00 Dose: 85 mls/hr Meropenem (Merrem Iv 1 Gm Premix) 50 mls @ 100 mls/hr IVPB Q8 [facility] PRN Reason: Protocol Stop: 12/21/17 14:01 Last Admin: 12/15/17 05:01 Dose: 100 mls/hr Vancomycin HCl (Vancomycin 1gm) 1 gm in 250 mls @ 167 mls/hr IVPB Q12H [facility] PRN Reason: Protocol Stop: 12/21/17 13:46 Last Admin: 12/15/17 01:35 Dose: 167 mls/hr Magnesium 2 gm/50 ml NS (Magnesium Sulfate 2 Gm/50 Ml Ns) 2 gm in 50 mls @ 50 mls/hr IVPB ONCE ONE Stop: 12/15/17 10:11 Potassium Chloride (Potassium Chloride 10 Meq/100 Ml) 10 meq in 100 mls @ 50 mls/hr IVPB Q2H [facility] Stop: 12/15/17 15:14 Lactic Acid (Lac-Hydrin 12% Cream (140 G)) 1 ea TOP DAILY [facility] Lidocaine (Lidocaine 5%) 0 gm TOP TID [facility] Last Admin: 12/14/17 18:24 Dose: 1 applic Metoprolol Tartrate (Lopressor) 25 mg PO BID [facility] Last Admin: 12/14/17 18:22 Dose: 25 mg Mirtazapine (Remeron) 15 mg PO HS [facility] Last Admin: 12/14/17 22:01 Dose: 15 mg Non-Formulary Medication (Dimethicone [Proshield Plus Skin Protectant]) 1 applic TOP DAILY [facility] Last Admin: 12/14/17 10:00 Dose: Not Given Ondansetron HCl (Zofran Tab) 4 mg PO Q6 PRN PRN Reason: Nausea/Vomiting Oxycodone HCl (Oxycodone Immediate Release Tab) 5 mg PO Q6H PRN PRN Reason: Pain, severe (8-10) Pantoprazole Sodium (Protonix Ec Tab) 40 mg PO 0600 [facility] Last Admin: 12/15/17 05:00 Dose: 40 mg Polyethylene Glycol (Miralax) 17 gm PO BID [facility] Last Admin: 12/14/17 18:14 Dose: Not Given Potassium Phos/Sodium Phos (Neutra-Phos) 1 pkt PO TID [facility] Last Admin: 12/14/17 18:22 Dose: 1 pkt Saliva Substitute (Saliva Substitute) 0 ml PO WM [facility] Last Admin: 12/14/17 18:24 Dose: 1 ml Vitamin A (Vitamin A & D Oint Ud Foilpak) 1 ea TOP TID [facility] Last Admin: 12/14/17 18:22 Dose: 1 ea Zolpidem Tartrate (Ambien) 5 mg PO HS PRN; Protocol PRN Reason: Insomnia - Labs Labs: 12/15/17 06:15 12/15/17 06:15 - Constitutional Appears: No Acute Distress, Cachectic, Chronically Ill - Head Exam Head Exam: ATRAUMATIC, NORMAL INSPECTION, NORMOCEPHALIC - Eye Exam Eye Exam: Normal appearance, PERRL - ENT Exam ENT Exam: Mucous Membranes Dry - Neck Exam Neck Exam: Full ROM. absent: Lymphadenopathy, Tenderness, Thyromegaly - Respiratory Exam Respiratory Exam: Clear to Ausculation Bilateral. absent: Rales, Rhonchi, Wheezes - Cardiovascular Exam Cardiovascular Exam: REGULAR RHYTHM, RRR, +S1, +S2. absent: Gallop, Rubs, Murmur - GI/Abdominal Exam GI & Abdominal Exam: Soft, Normal Bowel Sounds. absent: Guarding, Tenderness, Rebound - Extremities Exam Additional comments: R lower leg tenderness to palpation improved from yesterday - Neurological Exam Neurological Exam: Alert, Awake - Psychiatric Exam Psychiatric exam: Anxious - Skin Skin Exam: Dry, Intact, Pallor Assessment and Plan - Assessment and Plan (Free Text) Assessment: Mr. Monson is a 72 year old male with PMH of of stage IV NSCLC (with bony metastases, diagnosed last month, treated with palliative radiation by Dr. Vega) , COPD, R tibial pathological fx, sacral decubitus ulcer stage IV admitted for failure to thrive. He was diagnosed with lung biopsy and thoracentesis by Dr. Chandler last month. 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 Plan: Sepsis/Positive Blood Cultures -On vanc and merem -Echo without vegetations, showed moderate pulmonary HTN -WBC not decreasing but stable, continue to monitor -Final b/c showed sensitivity to current regimen, repeat b/c's are negative so far -ID following Failure to thrive -Likely secondary to worsening tumor burden, pain, infection, decubitus ulcer -Dietary supplement order changed to vanilla ensure, please encourage PO intake with patient, assist with feedings, we encouraged his daughter to help with feedings as well -Marinol discontinued as he is having worsening xerostomia -Anxiety improved but still not adequately controlled, consider changing alprazolam to lorazepam as it is longer acting if his anxiety continues NSCLC Stage IV -He is s/p first round of carboplatin and pemetrexed -Dr. Vega to continue radiation to the R tibia -Received Aredia at infusion clinic prior to admission, will be able to continue as an outpatient once he has stabilized Hypokalemia and hypomagnesemia -Slightly improved from yesterday -Repleting with IV K 10 meQ x 3 bags and 2 g Mg IVPB -Continue to monitor Normocytic Anemia -Likely due to anemia of chronic disease, no obvious signs of bleeding at this time -H/H is stable -Will continue to monitor R Tibial and foot pain -He is s/p repair by Dr. Fuller -We will continue 5% topical lidocaine ointment TID for his continuing pain -Oxycodone 5 mg q6h PRN for pain, order continued today -Podiatry consulted, appreciate recs Sacral Decubitus Ulcer -Per surgery, his ulcer is unstageable at this time -Q2 turns, air mattress, BID santyl application, multipodus boots ordered -Out of bed to chair twice daily, requested nursing obtain and use donut pad while he is in the chair DVT/GI PPX: Lovenox and protonix Case and plan were reviewed and discussed in detail with my attending physician Dr. Maryann Varner, DO IM Resident PGY-1
[2017-12-15] MEDS: Dextrose 5%/0.45% NS 1,000 ML IV SCH ×2 (10:51→21:30)
[2017-12-15] MEDS: Ammonium Lactate 12% Cream (140 g) TOP SCH (10:52)
[2017-12-15] MEDS: Lidocaine 5% Oint(35 gm) TOP SCH ×3 (10:53→17:36)
[2017-12-15] MEDS: Enoxaparin 30 mg Syringe SC SCH (10:54)
[2017-12-15] MEDS: POLYETHYLENE GLYCOL 3350 17 GM/Dose PACKET PO SCH ×2 (10:56→17:37)
[2017-12-15] MEDS: Potassium & Sodium Phosphate PO SCH ×3 (10:57→17:37)
[2017-12-15] MEDS: Vitamins A & D Oint UD Foilpak TOP SCH ×3 (10:58→17:38)
--- NOTE | 2017-12-15 13:27 | CP.PCM.PN ---
Subjective - Date & Time of Evaluation Date of Evaluation: 12/15/17 Time of Evaluation: 07:30 - Subjective Subjective: general surgery progress note for Dr. Elliott Patient seen this morning at bedside. he refused to allow examination of the sacral ulcer citing pain with turning. Patient denied f/c/n/v, abdominal pain. he indicates that he continues to have soreness on his sacrum. Attempted to examine patient's sacrum again at 1320, patient refused sacral exam again Objective - Vital Signs/Intake and Output Vital Signs (last 24 hours): Temp Pulse Resp BP Pulse Ox 97.0 F L 91 H 20 115/63 99 12/15/17 06:00 12/15/17 10:53 12/15/17 06:00 12/15/17 10:53 12/15/17 06:00 Intake and Output: 12/15/17 12/15/17 06:59 18:59 Intake Total 2780 Output Total 800 Balance 1979 - Medications Medications: Current Medications Acetaminophen (Tylenol 325mg Tab) 650 mg PO Q6H PRN PRN Reason: PAIN/FEVER Last Admin: 12/13/17 08:28 Dose: 650 mg Acetylcysteine (Acetylcysteine 20%) 3 ml IH [id number] [facility] Last Admin: 12/15/17 07:35 Dose: Not Given Albuterol/Ipratropium (Duoneb 3 Mg/0.5 Mg (3 Ml) Ud) 3 ml IH Q6H PRN PRN Reason: Shortness of Breath Last Admin: 12/12/17 19:27 Dose: 3 ml Alprazolam (Xanax) 0.25 mg PO Q8H [facility] PRN Reason: Protocol Stop: 12/19/17 17:05 Last Admin: 12/15/17 11:00 Dose: 0.25 mg Arformoterol Tartrate (Brovana) 15 mcg IH [id number] [facility] Last Admin: 12/15/17 07:31 Dose: 15 mcg Atorvastatin Calcium (Lipitor) 10 mg PO DIN [facility] Last Admin: 12/14/17 18:22 Dose: 10 mg Calcium Carbonate (Caltrate) 600 mg PO BID [facility] Last Admin: 12/15/17 10:50 Dose: 600 mg Collagenase (Santyl) 1 gm TOP DAILY [facility] Last Admin: 12/14/17 12:50 Dose: 1 applic Al Hydrox/Mg Hydrox/Simethicone 30 ml/Diphenhydramine HCl 75 mg/Lidocaine 30 ml 0 ml PO Q2H PRN PRN Reason: MOUTH/THROAT PAIN Docusate Sodium (Colace) 200 mg PO BID [facility] Last Admin: 12/15/17 10:50 Dose: 200 mg Dronabinol (Marinol) 2.5 mg PO AC [facility] Last Admin: 12/15/17 10:55 Dose: 2.5 mg Enoxaparin Sodium (Lovenox) 30 mg SC DAILY [facility] PRN Reason: Protocol Last Admin: 12/15/17 10:54 Dose: 30 mg Folic Acid (Folic Acid) 1 mg PO BID [facility] Last Admin: 12/15/17 10:52 Dose: 1 mg Dextrose/Sodium Chloride (Dextrose 5%/0.45% Ns 1000 Ml) 1,000 mls @ 85 mls/hr IV .[id number] [facility] Last Admin: 12/15/17 10:51 Dose: 85 mls/hr Meropenem (Merrem Iv 1 Gm Premix) 50 mls @ 100 mls/hr IVPB Q8 [facility] PRN Reason: Protocol Stop: 12/21/17 14:01 Last Admin: 12/15/17 05:01 Dose: 100 mls/hr Vancomycin HCl (Vancomycin 1gm) 1 gm in 250 mls @ 167 mls/hr IVPB Q12H [facility] PRN Reason: Protocol Stop: 12/21/17 13:46 Last Admin: 12/15/17 01:35 Dose: 167 mls/hr Potassium Chloride (Potassium Chloride 10 Meq/100 Ml) 10 meq in 100 mls @ 50 mls/hr IVPB Q2H [facility] Stop: 12/15/17 15:14 Last Admin: 12/15/17 10:57 Dose: 50 mls/hr Vancomycin HCl 1.5 gm/ Sodium (Chloride) 500 mls @ 167 mls/hr IVPB ONCE ONE PRN Reason: Protocol Stop: 12/15/17 20:59 Lactic Acid (Lac-Hydrin 12% Cream (140 G)) 1 ea TOP DAILY [facility] Last Admin: 12/15/17 10:52 Dose: 1 appl Lidocaine (Lidocaine 5%) 0 gm TOP TID [facility] Last Admin: 12/15/17 10:53 Dose: 1 applic Megestrol Acetate (Megace) 40 mg PO DAILY [facility] Metoprolol Tartrate (Lopressor) 25 mg PO BID [facility] Last Admin: 12/15/17 10:53 Dose: 25 mg Mirtazapine (Remeron) 15 mg PO HS [facility] Last Admin: 12/14/17 22:01 Dose: 15 mg Non-Formulary Medication (Dimethicone [Proshield Plus Skin Protectant]) 1 applic TOP DAILY [facility] Last Admin: 12/14/17 10:00 Dose: Not Given Ondansetron HCl (Zofran Tab) 4 mg PO Q6 PRN PRN Reason: Nausea/Vomiting Oxycodone HCl (Oxycodone Immediate Release Tab) 5 mg PO Q6H PRN PRN Reason: Pain, severe (8-10) Pantoprazole Sodium (Protonix Ec Tab) 40 mg PO 0600 [facility] Last Admin: 12/15/17 05:00 Dose: 40 mg Polyethylene Glycol (Miralax) 17 gm PO BID [facility] Last Admin: 12/15/17 10:56 Dose: 17 gm Potassium Phos/Sodium Phos (Neutra-Phos) 1 pkt PO TID [facility] Last Admin: 12/15/17 10:57 Dose: 1 pkt Saliva Substitute (Saliva Substitute) 0 ml PO WM [facility] Last Admin: 12/14/17 18:24 Dose: 1 ml Vitamin A (Vitamin A & D Oint Ud Foilpak) 1 ea TOP TID [facility] Last Admin: 12/15/17 10:58 Dose: 1 ea Zolpidem Tartrate (Ambien) 5 mg PO HS PRN; Protocol PRN Reason: Insomnia - Labs Labs: 12/15/17 06:15 12/15/17 06:15 - Constitutional Appears: Well, Non-toxic, No Acute Distress - Head Exam Head Exam: ATRAUMATIC, NORMOCEPHALIC - ENT Exam ENT Exam: Mucous Membranes Dry - Respiratory Exam Respiratory Exam: NORMAL BREATHING PATTERN - Cardiovascular Exam Cardiovascular Exam: +S1, +S2 - Extremities Exam Extremities Exam: absent: Pedal Edema Additional comments: tenderness in right lower leg d/t recent ORIF for pathologic fracture - Neurological Exam Neurological Exam: Alert, Awake, Oriented x3 - Psychiatric Exam Psychiatric exam: Normal Affect, Normal Mood - Skin Additional comments: unable to examine sacral wound due to patient refusal, all other skin appears clean dry warm and intact Assessment and Plan - Assessment and Plan (Free Text) Assessment: 72 yr old male with Stage IV NSCLC undergoing radiation with an unstageable sacral ulcer Plan: - continue dressing with Santyl and optifoam - patient refused exam repeatedly today - will attempt to examine again tomorrow -continue abx per ID recs, blood cx sensitivities noted -plan discussed with Dr. Earl Arnold, PGY 1
[2017-12-15] MEDS: Collagenase 250 Units/gm Ointment(30 gm) TOP SCH (13:57)
--- NOTE | 2017-12-15 14:58 | CP.PCM.PN ---
Subjective - Date & Time of Evaluation Date of Evaluation: 12/15/17 Time of Evaluation: 11:45 - Subjective Subjective: Feels weak but able to eat, no nausea, no fevers, no diarrhea. Objective - Vital Signs/Intake and Output Vital Signs (last 24 hours): Temp Pulse Resp BP Pulse Ox 97.0 F L 91 H 20 115/63 99 12/15/17 06:00 12/15/17 06:00 12/15/17 06:00 12/15/17 06:00 12/15/17 06:00 Intake and Output: 12/15/17 12/15/17 06:59 18:59 Intake Total 2780 Output Total 800 Balance 1979 - Medications Medications: Current Medications Acetaminophen (Tylenol 325mg Tab) 650 mg PO Q6H PRN PRN Reason: PAIN/FEVER Last Admin: 12/13/17 08:28 Dose: 650 mg Acetylcysteine (Acetylcysteine 20%) 3 ml IH [id number] [facility] Last Admin: 12/15/17 07:35 Dose: Not Given Albuterol/Ipratropium (Duoneb 3 Mg/0.5 Mg (3 Ml) Ud) 3 ml IH Q6H PRN PRN Reason: Shortness of Breath Last Admin: 12/12/17 19:27 Dose: 3 ml Alprazolam (Xanax) 0.25 mg PO Q8H [facility] PRN Reason: Protocol Stop: 12/19/17 17:05 Last Admin: 12/14/17 18:22 Dose: 0.25 mg Arformoterol Tartrate (Brovana) 15 mcg IH [id number] [facility] Last Admin: 12/15/17 07:31 Dose: 15 mcg Atorvastatin Calcium (Lipitor) 10 mg PO DIN [facility] Last Admin: 12/14/17 18:22 Dose: 10 mg Calcium Carbonate (Caltrate) 600 mg PO BID [facility] Last Admin: 12/14/17 19:10 Dose: Not Given Collagenase (Santyl) 1 gm TOP DAILY [facility] Last Admin: 12/14/17 12:50 Dose: 1 applic Al Hydrox/Mg Hydrox/Simethicone 30 ml/Diphenhydramine HCl 75 mg/Lidocaine 30 ml 0 ml PO Q2H PRN PRN Reason: MOUTH/THROAT PAIN Docusate Sodium (Colace) 200 mg PO BID [facility] Last Admin: 12/14/17 18:13 Dose: Not Given Dronabinol (Marinol) 2.5 mg PO AC [facility] Last Admin: 12/14/17 18:22 Dose: 2.5 mg Enoxaparin Sodium (Lovenox) 30 mg SC DAILY [facility] PRN Reason: Protocol Last Admin: 12/14/17 12:48 Dose: 30 mg Folic Acid (Folic Acid) 1 mg PO BID [facility] Last Admin: 12/14/17 18:22 Dose: 1 mg Dextrose/Sodium Chloride (Dextrose 5%/0.45% Ns 1000 Ml) 1,000 mls @ 85 mls/hr IV .[id number] [facility] Last Admin: 12/14/17 22:00 Dose: 85 mls/hr Meropenem (Merrem Iv 1 Gm Premix) 50 mls @ 100 mls/hr IVPB Q8 [facility] PRN Reason: Protocol Stop: 12/21/17 14:01 Last Admin: 12/15/17 05:01 Dose: 100 mls/hr Vancomycin HCl (Vancomycin 1gm) 1 gm in 250 mls @ 167 mls/hr IVPB Q12H [facility] PRN Reason: Protocol Stop: 12/21/17 13:46 Last Admin: 12/15/17 01:35 Dose: 167 mls/hr Potassium Chloride (Potassium Chloride 10 Meq/100 Ml) 10 meq in 100 mls @ 50 mls/hr IVPB Q2H [facility] Stop: 12/15/17 15:14 Vancomycin HCl 1.5 gm/ Sodium (Chloride) 500 mls @ 167 mls/hr IVPB ONCE ONE PRN Reason: Protocol Stop: 12/15/17 20:59 Lactic Acid (Lac-Hydrin 12% Cream (140 G)) 1 ea TOP DAILY [facility] Lidocaine (Lidocaine 5%) 0 gm TOP TID [facility] Last Admin: 12/14/17 18:24 Dose: 1 applic Metoprolol Tartrate (Lopressor) 25 mg PO BID [facility] Last Admin: 12/14/17 18:22 Dose: 25 mg Mirtazapine (Remeron) 15 mg PO HS [facility] Last Admin: 12/14/17 22:01 Dose: 15 mg Non-Formulary Medication (Dimethicone [Proshield Plus Skin Protectant]) 1 applic TOP DAILY [facility] Last Admin: 12/14/17 10:00 Dose: Not Given Ondansetron HCl (Zofran Tab) 4 mg PO Q6 PRN PRN Reason: Nausea/Vomiting Oxycodone HCl (Oxycodone Immediate Release Tab) 5 mg PO Q6H PRN PRN Reason: Pain, severe (8-10) Pantoprazole Sodium (Protonix Ec Tab) 40 mg PO 0600 [facility] Last Admin: 12/15/17 05:00 Dose: 40 mg Polyethylene Glycol (Miralax) 17 gm PO BID [facility] Last Admin: 12/14/17 18:14 Dose: Not Given Potassium Phos/Sodium Phos (Neutra-Phos) 1 pkt PO TID [facility] Last Admin: 12/14/17 18:22 Dose: 1 pkt Saliva Substitute (Saliva Substitute) 0 ml PO WM [facility] Last Admin: 12/14/17 18:24 Dose: 1 ml Vitamin A (Vitamin A & D Oint Ud Foilpak) 1 ea TOP TID [facility] Last Admin: 12/14/17 18:22 Dose: 1 ea Zolpidem Tartrate (Ambien) 5 mg PO HS PRN; Protocol PRN Reason: Insomnia - Labs Labs: 12/15/17 06:15 12/15/17 06:15 - Constitutional Appears: Cachectic, Chronically Ill - Head Exam Head Exam: NORMAL INSPECTION - Neck Exam Neck Exam: absent: Meningismus - Respiratory Exam Respiratory Exam: Decreased Breath Sounds Additional comments: right sided chest wall port in place - Cardiovascular Exam Cardiovascular Exam: +S1, +S2 - GI/Abdominal Exam GI & Abdominal Exam: Soft. absent: Tenderness Assessment and Plan - Assessment and Plan (Free Text) Plan: Assessment Sepsis due to methicillin-resistant coagulase negative staph bacteremia, suspicious for port-a-cath as the source, with infected unstageable sacral ulcer (skin and skin structure infection) metastatic non-small cell lung cancer cachexia COPD chronic anemia anxiety dyslipidemia HTN Plan continue Vancomycin and will give an extra dose of IV Vancomycin today since Vanco trough is low; repeat blood cx are negative reviewed 2D echo which does not show vegetations follow up duplex ultrasound of veins associated with port-a-cath to rule out thrombosis will continue monitor clinically check sacral xray does not show osteomyelitis overall prognosis is poor discussed with Dr. Wolf
--- NOTE | 2017-12-15 17:04 | PN ---
DATE: 12/15/2017 PULMONARY PROGRESS NOTE REFERRING PHYSICIAN: Adolfo Durbin MD. SUBJECTIVE: He is lying in the bed, head at 45 degrees. Family is at bedside, feeding him lunch. Refused to get out of bed to chair. Cough is improved. No chest pain. No nausea, vomiting, diarrhea. No leg pain or leg swelling. OBJECTIVE: GENERAL: In no acute distress. VITAL SIGNS: Temperature is 98, heart rate is 91, respiratory rate is 20, blood pressure 115/63, pulse ox 99% on nasal cannula. HEENT: Moist mucous membrane. No ulcer or thrush noted. NECK: Supple. No JVD. LUNGS: Have fair airflow with rhonchi. HEART: S1 and S2. ABDOMEN: Soft, nontender. No organomegaly. EXTREMITIES: No edema. NEUROLOGICAL: Awake and alert, follows simple command. MEDICATIONS: He is on Mucomyst inhaled twice a day, Ambien 5 mg at bedtime p.r.n., Brovana inhaled twice a day, calcium carbonate 600 mg twice a day, Colace 200 mg daily, IV fluid D5 half normal saline 85 mL/hour, DuoNeb every 6 hours, folic acid 1 mg twice a day, lidocaine patch to affected area, Lipitor 10 mg daily, metoprolol tartrate 25 mg b.i.d., Lovenox 30 mg subcu daily, Megace 40 mg daily, meropenem 1 g IV every 8 hours, MiraLax 17 g twice a day, Neutra-Phos one pack three times a day, oxycodone 5 mg every 6 hours p.r.n., Protonix 40 mg daily, Remeron at 50 mg at bedtime, Santyl 1 g topical at affected area, Tylenol p.r.n., vancomycin 1 g IV every 12 hours, vitamin A and D ointment to affected area, Xanax 0.25 mg every 8 hours p.r.n., Zofran p.r.n. basis. LABORATORY DATA: Shows hemoglobin 10.1, hematocrit 32, WBC 12.1, platelet count is 244. Sodium 133, potassium 3.3, chloride 94, bicarbonate 36, BUN is 5, creatinine 0.3, glucose 106, calcium 7.4, phosphorus 2.1, magnesium 1.5, AST 28, ALT 27, alk phos is 108, albumin is 2.3. Repeat blood culture: There is no growth. IMPRESSION AND PLAN: Metastatic lung cancer involving the bones, vertebra, also status post distal tibia pathological fracture requiring surgery, radiation therapy, chronic obstructive lung disease, left upper lobe atelectasis with tumor obstruction, malnutrition, decubitus ulcer, oropharyngeal dysphagia. Spoke to the patient and the family. Encouraged him to get out of bed to chair. Also spoke to the staff to get him up. Fall precaution. Bed ulcer precaution. Spoke to Speech Therapy. He done okay with the swallow evaluation, but high risk for aspiration. We will encourage the patient to sit up for eating. Continue bronchodilator. Antibiotics as per Infectious Diseases. Oncology, Hematology followup. Will benefit from Psychiatry evaluation and followup. Thank you and we will follow with you. Judit Dent MD
[2017-12-15] MEDS: DIMETHICONE TOP SCH (17:36)
[2017-12-15] MEDS: Saliva Substitute 44.3 ML PO SCH (17:38)
[2017-12-15] MEDS ORDERED: Vancomycin 1.5 GM in Sodium Chloride 0.9% 500 ML IVPB ONE (18:00)
--- NOTE | 2017-12-15 23:16 | CON ---
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 The patient has non-small cell lung cancer with bone mets and right hip pathologic fracture with sacral ulcers as well. Psychiatry is involved because of the present symptoms and has been adjusting his medications to ensure his optimal comfort and functionating. I reviewed Dr. Oro's notes and met patient at bedside this morning. He is cooperative, with fair eye contact appears to be looking more interactive than Dr. Oro's notes indicate from yesterday. He denies having any suicidal thoughts or wishes. He reports that he feels alright at this time. He does look fatigued with constricted affect. He reports that he is functioning well, as can be expected. He is not oriented to the current month and has difficulty terming the year; however, he is aware that he is in [facility] and he knows the circumstances of his current hospitalization. He denies any pain or discomfort at this time. Denies any side effects to medications. He is adjusting to the medications prescribed by the psychiatrist and denies any side effects at this time. In general, he appeared credible and responses are consistent. Insight and judgment are fair at this time, and there have been no behavioral issues. LABORATORY DATA: Reviewed by his provider. VITAL SIGNS: Reviewed by his provider. RELEVANT PSYCHIATRIC MEDICATIONS: Include Xanax 0.25 mg p.o. at bedtime scheduled, Remeron 15 mg p.o. at bedtime. 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 RECOMMENDATIONS: We will continue with current treatment and plan. There is no acute indication to change current medications. Psychiatry will continue to follow up with the patient every 2 to 3 days to ensure the stability and tolerance to the medications. Please reconsult for followup if there are any acute changes in patient's presentation. Next followup will be on Monday12/18/2017. Margaret Leiva MD
[2017-12-16] MEDS: Vancomycin 1gm in NS 250ml 1 GM/250 ML BAG IVPB SCH ×2 (01:46→16:01)
[2017-12-16] MEDS: Meropenem IV 1 gm in NS 50 ML IVPB SCH ×3 (05:27→22:12)
[2017-12-16] MEDS: Acetylcysteine 20% Inhal Soln (4ml) IH SCH ×2 (08:10→20:15)
[2017-12-16] MEDS: Arformoterol 15 mcg/2 ml Inh Sol IH SCH ×2 (08:10→20:15)
[2017-12-16 08:49] LABS: BASO # 0.01 K/mm3 (0.0-2.0); BASO % 0.1 % (0.0-3.0); EOS # 0.1 (0.0-0.7); EOS % 0.4 % (1.5-5.0); GRAN # 10.12 (1.4-6.5); GRAN % 85.7 % (50.0-68.0); HEMOGLOBIN 9.3 g/dL (14.0-18.0); LYMPH % 8.5 % (22.0-35.0); MEAN CELL VOLUME 93.3 fl (80.0-105.0); MEAN CORPUSCULAR HEMOGLOBIN 29.5 pg (25.0-35.0); MEAN CORPUSCULAR HGB CONC 31.6 g/dl (31.0-37.0); MEAN PLATELET VOLUME 9.6 fl (7.0-11.0); MONO # 0.6 (0.1-0.6); MONO % 5.3 % (1.0-6.0); RBC 3.15 10^6/uL (3.5-6.1); RED CELL DISTRIBUTION WIDTH 17.3 % (11.5-14.5); WHITE BLOOD COUNT 11.8 10^3/ul (4.5-11.0)
[2017-12-16 09:29] LABS: ALB/GLOB RATIO 0.8 (1.1-1.8); ALBUMIN 2.2 g/dL (3.0-4.8); ALT/SGPT 27 U/L (7-56); AST/SGOT 23 U/L (17-59); BLOOD UREA NITROGEN 6 mg/dL (7-21); GFR AFRICAN-AMERICAN > 60; GFR NON-AFRICAN AMERICAN > 60
--- NOTE | 2017-12-16 09:38 | CP.PCM.PN ---
<Umm Cox - Last Filed: 12/16/17 10:02> Subjective - Date & Time of Evaluation Date of Evaluation: 12/16/17 Time of Evaluation: 09:35 - Subjective Subjective: Podiatry Progress Note for Dr. Baeza 72 yo male, seen and evaluated at bedside for bilateral xerosis. Patient reports pain today to bilateral feet and right lower extremity due to IM catrachito placement of right tibial fracture a few months ago. He denies any other pedal complaints at this time. Denies N/V/F/SOB/CP/C. Objective - Vital Signs/Intake and Output Vital Signs (last 24 hours): Temp Pulse Resp BP Pulse Ox 97.8 F 102 H 20 114/53 L 99 12/16/17 08:08 12/16/17 08:08 12/16/17 08:08 12/16/17 08:08 12/15/17 17:24 Intake and Output: 12/16/17 12/16/17 06:59 18:59 Output Total 225 Balance -225 - Medications Medications: Current Medications Acetaminophen (Tylenol 325mg Tab) 650 mg PO Q6H PRN PRN Reason: PAIN/FEVER Last Admin: 12/13/17 08:28 Dose: 650 mg Acetylcysteine (Acetylcysteine 20%) 3 ml IH [id number] [facility] Last Admin: 12/16/17 08:10 Dose: 3 ml Albuterol/Ipratropium (Duoneb 3 Mg/0.5 Mg (3 Ml) Ud) 3 ml IH Q6H PRN PRN Reason: Shortness of Breath Last Admin: 12/12/17 19:27 Dose: 3 ml Alprazolam (Xanax) 0.25 mg PO Q8H [facility] PRN Reason: Protocol Stop: 12/19/17 17:05 Last Admin: 12/16/17 01:45 Dose: 0.25 mg Arformoterol Tartrate (Brovana) 15 mcg IH [id number] [facility] Last Admin: 12/16/17 08:10 Dose: 15 mcg Atorvastatin Calcium (Lipitor) 10 mg PO DIN [facility] Last Admin: 12/15/17 17:37 Dose: 10 mg Calcium Carbonate (Caltrate) 600 mg PO BID [facility] Last Admin: 12/15/17 17:36 Dose: 600 mg Collagenase (Santyl) 1 gm TOP DAILY [facility] Last Admin: 12/15/17 13:57 Dose: 1 applic Al Hydrox/Mg Hydrox/Simethicone 30 ml/Diphenhydramine HCl 75 mg/Lidocaine 30 ml 0 ml PO Q2H PRN PRN Reason: MOUTH/THROAT PAIN Docusate Sodium (Colace) 200 mg PO BID [facility] Last Admin: 12/15/17 17:36 Dose: 200 mg Enoxaparin Sodium (Lovenox) 30 mg SC DAILY [facility] PRN Reason: Protocol Last Admin: 12/15/17 10:54 Dose: 30 mg Folic Acid (Folic Acid) 1 mg PO BID [facility] Last Admin: 12/15/17 17:36 Dose: 1 mg Dextrose/Sodium Chloride (Dextrose 5%/0.45% Ns 1000 Ml) 1,000 mls @ 85 mls/hr IV .[id number] [facility] Last Admin: 12/15/17 21:30 Dose: 85 mls/hr Meropenem (Merrem Iv 1 Gm Premix) 50 mls @ 100 mls/hr IVPB Q8 [facility] PRN Reason: Protocol Stop: 12/21/17 14:01 Last Admin: 12/16/17 05:27 Dose: 100 mls/hr Vancomycin HCl (Vancomycin 1gm) 1 gm in 250 mls @ 167 mls/hr IVPB Q12H [facility] PRN Reason: Protocol Stop: 12/21/17 13:46 Last Admin: 12/16/17 01:46 Dose: 167 mls/hr Lactic Acid (Lac-Hydrin 12% Cream (140 G)) 1 ea TOP DAILY [facility] Last Admin: 12/15/17 10:52 Dose: 1 appl Lidocaine (Lidocaine 5%) 0 gm TOP TID [facility] Last Admin: 12/15/17 17:36 Dose: 1 applic Megestrol Acetate (Megace) 40 mg PO DAILY [facility] Last Admin: 12/15/17 13:55 Dose: 40 mg Metoprolol Tartrate (Lopressor) 25 mg PO BID [facility] Last Admin: 12/15/17 17:37 Dose: 25 mg Mirtazapine (Remeron) 15 mg PO HS [facility] Last Admin: 12/15/17 22:26 Dose: 15 mg Non-Formulary Medication (Dimethicone [Proshield Plus Skin Protectant]) 1 applic TOP DAILY [facility] Last Admin: 12/15/17 17:36 Dose: Not Given Ondansetron HCl (Zofran Tab) 4 mg PO Q6 PRN PRN Reason: Nausea/Vomiting Last Admin: 12/15/17 15:18 Dose: 4 mg Oxycodone HCl (Oxycodone Immediate Release Tab) 5 mg PO Q6H PRN PRN Reason: Pain, severe (8-10) Last Admin: 12/16/17 01:45 Dose: 5 mg Pantoprazole Sodium (Protonix Ec Tab) 40 mg PO 0600 [facility] Last Admin: 12/15/17 05:00 Dose: 40 mg Polyethylene Glycol (Miralax) 17 gm PO BID [facility] Last Admin: 12/15/17 17:37 Dose: 17 gm Potassium Phos/Sodium Phos (Neutra-Phos) 1 pkt PO TID [facility] Last Admin: 12/15/17 17:37 Dose: 1 pkt Saliva Substitute (Saliva Substitute) 0 ml PO WM [facility] Last Admin: 12/15/17 17:38 Dose: Not Given Vitamin A (Vitamin A & D Oint Ud Foilpak) 1 ea TOP TID [facility] Last Admin: 12/15/17 17:38 Dose: 1 ea Zolpidem Tartrate (Ambien) 5 mg PO HS PRN; Protocol PRN Reason: Insomnia Last Admin: 12/15/17 22:29 Dose: 5 mg - Labs Labs: 12/16/17 08:30 12/16/17 08:30 - Constitutional Appears: Well, Non-toxic, No Acute Distress - Head Exam Head Exam: ATRAUMATIC, NORMOCEPHALIC - Extremities Exam Additional comments: VASC: DP and PT 1/4 bilaterally, CFT < 3 seconds x 10 digits, temperature gradient warm to cool ORTHO: pain with palpation to right lower extremity, MMT 4/5 bilaterally. NEURO: gross and protective sensation intact DERM: Xerosis of bilateral lower extremities, hyperpigmented discoloration to right lower extremity, no erythema, no streaking, no open lesions, no clinical signs of infection. - Neurological Exam Neurological Exam: Alert, Awake, Oriented x3 - Psychiatric Exam Psychiatric exam: Normal Affect, Normal Mood Assessment and Plan - Assessment and Plan (Free Text) Assessment: 72 y.o male with xerosis to bilateral lower extremities Plan: Plan: Patient seen and evaluated with attending Dr. Baeza Charts, labs, vitals reviewed; afebrile, WBC 11.8 (12/16/2017) AmLactin applied to bilateral lower extremities. AmLactin to be applied to lower extremity once daily Multipodus boots to be worn at all times while in bed. Status post IM catrachito distal tibial fracture. Dr. Fuller consulted. Weightbearing status and management of right lower extremity per Dr. Fuller Podiatry will continue to follow while in house. <Nilton Baeza - Last Filed: 12/19/17 12:11> Objective - Vital Signs/Intake and Output Vital Signs (last 24 hours): Temp Pulse Resp BP Pulse Ox 98.2 F 85 20 133/61 96 12/19/17 08:06 12/19/17 11:37 12/19/17 08:06 12/19/17 11:37 12/19/17 08:06 Intake and Output: 12/19/17 12/19/17 06:59 18:59 Intake Total 0 Output Total 1800 Balance -1800 - Medications Medications: Current Medications Acetaminophen (Tylenol 325mg Tab) 650 mg PO Q6H PRN PRN Reason: PAIN/FEVER Last Admin: 12/13/17 08:28 Dose: 650 mg Acetylcysteine (Acetylcysteine 20%) 3 ml IH Q6 [facility] Last Admin: 12/19/17 07:21 Dose: 3 ml Alprazolam (Xanax) 0.25 mg PO Q8H [facility] PRN Reason: Protocol Stop: 12/19/17 17:05 Last Admin: 12/19/17 01:51 Dose: Not Given Arformoterol Tartrate (Brovana) 15 mcg IH [id number] [facility] Last Admin: 12/19/17 07:22 Dose: 15 mcg Atorvastatin Calcium (Lipitor) 10 mg PO DIN [facility] Last Admin: 12/18/17 17:19 Dose: Not Given Calcium Carbonate (Caltrate) 600 mg PO BID [facility] Last Admin: 12/19/17 11:36 Dose: Not Given Collagenase (Santyl) 1 gm TOP DAILY [facility] Last Admin: 12/18/17 09:29 Dose: 1 applic Al Hydrox/Mg Hydrox/Simethicone 30 ml/Diphenhydramine HCl 75 mg/Lidocaine 30 ml 0 ml PO Q2H PRN PRN Reason: MOUTH/THROAT PAIN Docusate Sodium (Colace) 200 mg PO BID [facility] Last Admin: 12/19/17 11:36 Dose: Not Given Enoxaparin Sodium (Lovenox) 30 mg SC DAILY [facility] PRN Reason: Protocol Last Admin: 12/17/17 10:53 Dose: 30 mg Folic Acid (Folic Acid) 1 mg PO BID [facility] Last Admin: 12/19/17 11:37 Dose: Not Given Dextrose/Sodium Chloride (Dextrose 5%/0.45% Ns 1000 Ml) 1,000 mls @ 85 mls/hr IV .[id number] [facility] Last Admin: 12/17/17 16:36 Dose: 85 mls/hr Meropenem (Merrem Iv 1 Gm Premix) 50 mls @ 100 mls/hr IVPB Q8 [facility] PRN Reason: Protocol Stop: 12/21/17 14:01 Last Admin: 12/19/17 06:01 Dose: 100 mls/hr Vancomycin HCl (Vancomycin 1gm) 1 gm in 250 mls @ 167 mls/hr IVPB Q12H [facility] PRN Reason: Protocol Stop: 12/21/17 13:46 Last Admin: 12/19/17 02:18 Dose: 167 mls/hr Potassium Chloride (Potassium Chloride 20 Meq/100 Ml) 20 meq in 100 mls @ 50 mls/hr IVPB ONCE ONE Stop: 12/19/17 13:06 Lactic Acid (Lac-Hydrin 12% Cream (140 G)) 1 ea TOP DAILY [facility] Last Admin: 12/18/17 09:34 Dose: Not Given Levalbuterol HCl (Xopenex) 0.63 mg IH [id number] PRN PRN Reason: Shortness of Breath Last Admin: 12/18/17 11:54 Dose: 0.63 mg Lidocaine (Lidocaine 5%) 0 gm TOP TID [facility] Last Admin: 12/18/17 17:19 Dose: Not Given Magnesium Oxide (Mag-Ox) 400 mg PO BID [facility] Stop: 12/20/17 23:59 Megestrol Acetate (Megace) 40 mg PO DAILY [facility] Last Admin: 12/18/17 09:28 Dose: Not Given Methylprednisolone (Solu-Medrol) 40 mg IVP Q8 [facility] Last Admin: 12/19/17 06:01 Dose: 40 mg Metoprolol Tartrate (Lopressor) 5 mg IVP Q6 [facility] Last Admin: 12/19/17 11:37 Dose: 5 mg Mirtazapine (Remeron) 15 mg PO HS [facility] Last Admin: 12/18/17 21:24 Dose: Not Given Non-Formulary Medication (Dimethicone [Proshield Plus Skin Protectant]) 1 applic TOP DAILY [facility] Last Admin: 12/18/17 09:27 Dose: Not Given Ondansetron HCl (Zofran Tab) 4 mg PO Q6 PRN PRN Reason: Nausea/Vomiting Last Admin: 12/15/17 15:18 Dose: 4 mg Oxycodone HCl (Oxycodone Immediate Release Tab) 5 mg PO Q6H PRN PRN Reason: Pain, severe (8-10) Last Admin: 12/16/17 01:45 Dose: 5 mg Pantoprazole Sodium (Protonix Ec Tab) 40 mg PO 0600 [facility] Last Admin: 12/19/17 05:44 Dose: Not Given Polyethylene Glycol (Miralax) 17 gm PO BID [facility] Last Admin: 12/18/17 17:19 Dose: Not Given Potassium Phos/Sodium Phos (Neutra-Phos) 1 pkt PO TID [facility] Last Admin: 12/18/17 17:19 Dose: Not Given Potassium Phos/Sodium Phos (Neutra-Phos) 1 pkt PO TID [facility] Stop: 12/20/17 23:00 Saliva Substitute (Saliva Substitute) 0 ml PO WM [facility] Last Admin: 12/18/17 17:19 Dose: Not Given Vitamin A (Vitamin A & D Oint Ud Foilpak) 1 ea TOP TID [facility] Last Admin: 12/18/17 17:28 Dose: 1 ea Zolpidem Tartrate (Ambien) 5 mg PO HS PRN; Protocol PRN Reason: Insomnia Last Admin: 12/15/17 22:29 Dose: 5 mg - Labs Labs: 12/19/17 06:15 12/19/17 06:15 PT 17.7 SECONDS 12/19/17 06:15 INR 1.53 12/19/17 06:15 APTT 30.0 Seconds 12/19/17 06:15 Attending/Attestation - Attestation I have personally seen and examined this patient.: Yes I have fully participated in the care of the patient.: Yes I have reviewed all pertinent clinical information, including history, physical exam and plan: Yes
[2017-12-16] MEDS: Dextrose 5%/0.45% NS 1,000 ML IV SCH (09:56)
[2017-12-16] MEDS: Potassium & Sodium Phosphate PO SCH ×3 (10:00→17:42)
[2017-12-16] MEDS: Enoxaparin 30 mg Syringe SC SCH (10:00)
[2017-12-16] MEDS: POLYETHYLENE GLYCOL 3350 17 GM/Dose PACKET PO SCH ×2 (10:02→17:41)
[2017-12-16] MEDS: Collagenase 250 Units/gm Ointment(30 gm) TOP SCH (10:02)
[2017-12-16] MEDS: DIMETHICONE TOP SCH (10:03)
[2017-12-16] MEDS: Ammonium Lactate 12% Cream (140 g) TOP SCH (10:05)
[2017-12-16] MEDS: Vitamins A & D Oint UD Foilpak TOP SCH ×3 (10:06→17:40)
[2017-12-16] MEDS: Lidocaine 5% Oint(35 gm) TOP SCH ×3 (10:08→17:41)
[2017-12-16] MEDS: Saliva Substitute 44.3 ML PO SCH ×2 (10:08→13:22)
--- NOTE | 2017-12-16 13:17 | PN ---
DATE: 12/16/2017 SUBJECTIVE: Patient is in bed, in no acute distress, nontoxic. No fevers and chills. PHYSICAL EXAMINATION: VITAL SIGNS: Temperature is 98, blood pressure is 120/70, respiratory rate 16. HEENT: Unremarkable. NECK: Supple. LUNGS: Have decreased breath sounds. HEART: Normal S1, S2. ABDOMEN: Soft. LABORATORY EXAMINATION: Reveals the patient have a white count of 12,100, hemoglobin of 10, platelets of 244. Chemistries reveals a BUN of 5, creatinine of 0.3. Toxicology is noted and microbiology reveals a coag-negative staph in both bottles, repeat cultures are no growth. The patient is on meropenem and vancomycin. The patient's Dopplers of the upper extremity is pending. ASSESSMENT AND PLAN: A 72-year-old male with sepsis secondary to coag-negative staph bacteremia, possible Port-A-Cath as the source with an unstageable sacral ulcer, also is a possible source in a patient with metastatic non-small cell lung cancer, on vancomycin. The patient is cachectic, chronic obstructive pulmonary disease, chronic anemia, anxiety, dyslipidemia, hypertension. The 2-D echocardiogram showed no vegetations. Repeat blood cultures are negative. Today is day #4 of vancomycin, would need 10 days of IV vancomycin; also day #4 of meropenem. We will check on the ultrasound. We will make further recommendations. Overall prognosis is quite . Barrera Purdy MD
--- NOTE | 2017-12-16 13:43 | CP.PCM.PN ---
Subjective - Date & Time of Evaluation Date of Evaluation: 12/16/17 Time of Evaluation: 11:00 - Subjective Subjective: Awake, alert, no distress Reason for consultation: Cardiac evaluation for SVT, history of non-small cell lung cancer with bone metastasis, potassium level 2.8 Brief history of present illness: A 72 year old male who came in to the ER due to failure to thrive and lightheadedness. Patient has history of non-small cell lung cancer with bone mets, right tip pathological fracture, sacral ulcer stage 4. low WBC. today, had episode of SVT. Electrolyte related Potassium 2.8. Seen and examined by me and Dr. Sahu Objective - Vital Signs/Intake and Output Vital Signs (last 24 hours): Temp Pulse Resp BP Pulse Ox 97.8 F 95 H 20 122/61 99 12/16/17 08:08 12/16/17 11:48 12/16/17 08:08 12/16/17 11:48 12/15/17 17:24 Intake and Output: 12/16/17 12/16/17 06:59 18:59 Output Total 225 Balance -225 - Medications Medications: Current Medications Acetaminophen (Tylenol 325mg Tab) 650 mg PO Q6H PRN PRN Reason: PAIN/FEVER Last Admin: 12/13/17 08:28 Dose: 650 mg Acetylcysteine (Acetylcysteine 20%) 3 ml IH [id number] [facility] Last Admin: 12/16/17 08:10 Dose: 3 ml Albuterol/Ipratropium (Duoneb 3 Mg/0.5 Mg (3 Ml) Ud) 3 ml IH Q6H PRN PRN Reason: Shortness of Breath Last Admin: 12/12/17 19:27 Dose: 3 ml Alprazolam (Xanax) 0.25 mg PO Q8H [facility] PRN Reason: Protocol Stop: 12/19/17 17:05 Last Admin: 12/16/17 09:59 Dose: 0.25 mg Arformoterol Tartrate (Brovana) 15 mcg IH [id number] [facility] Last Admin: 12/16/17 08:10 Dose: 15 mcg Atenolol (Tenormin) 12.5 mg PO BID [facility] Last Admin: 12/16/17 11:48 Dose: 12.5 mg Atorvastatin Calcium (Lipitor) 10 mg PO DIN [facility] Last Admin: 12/15/17 17:37 Dose: 10 mg Calcium Carbonate (Caltrate) 600 mg PO BID [facility] Last Admin: 12/16/17 09:59 Dose: 600 mg Collagenase (Santyl) 1 gm TOP DAILY [facility] Last Admin: 12/16/17 10:02 Dose: 1 applic Al Hydrox/Mg Hydrox/Simethicone 30 ml/Diphenhydramine HCl 75 mg/Lidocaine 30 ml 0 ml PO Q2H PRN PRN Reason: MOUTH/THROAT PAIN Docusate Sodium (Colace) 200 mg PO BID [facility] Last Admin: 12/16/17 09:58 Dose: 200 mg Enoxaparin Sodium (Lovenox) 30 mg SC DAILY [facility] PRN Reason: Protocol Last Admin: 12/16/17 10:00 Dose: 30 mg Folic Acid (Folic Acid) 1 mg PO BID [facility] Last Admin: 12/16/17 09:59 Dose: 1 mg Dextrose/Sodium Chloride (Dextrose 5%/0.45% Ns 1000 Ml) 1,000 mls @ 85 mls/hr IV .[id number] [facility] Last Admin: 12/16/17 09:56 Dose: 85 mls/hr Meropenem (Merrem Iv 1 Gm Premix) 50 mls @ 100 mls/hr IVPB Q8 [facility] PRN Reason: Protocol Stop: 12/21/17 14:01 Last Admin: 12/16/17 05:27 Dose: 100 mls/hr Vancomycin HCl (Vancomycin 1gm) 1 gm in 250 mls @ 167 mls/hr IVPB Q12H [facility] PRN Reason: Protocol Stop: 12/21/17 13:46 Last Admin: 12/16/17 01:46 Dose: 167 mls/hr Potassium Chloride (Potassium Chloride 20 Meq/100 Ml) 20 meq in 100 mls @ 50 mls/hr IVPB Q2H [facility] Stop: 12/16/17 16:29 Last Admin: 12/16/17 13:18 Dose: 50 mls/hr Lactic Acid (Lac-Hydrin 12% Cream (140 G)) 1 ea TOP DAILY [facility] Last Admin: 12/16/17 10:05 Dose: 1 appl Lidocaine (Lidocaine 5%) 0 gm TOP TID [facility] Last Admin: 12/16/17 13:21 Dose: 1 applic Megestrol Acetate (Megace) 40 mg PO DAILY [facility] Last Admin: 12/16/17 10:00 Dose: 40 mg Mirtazapine (Remeron) 15 mg PO HS [facility] Last Admin: 12/15/17 22:26 Dose: 15 mg Non-Formulary Medication (Dimethicone [Proshield Plus Skin Protectant]) 1 applic TOP DAILY [facility] Last Admin: 12/16/17 10:03 Dose: Not Given Ondansetron HCl (Zofran Tab) 4 mg PO Q6 PRN PRN Reason: Nausea/Vomiting Last Admin: 12/15/17 15:18 Dose: 4 mg Oxycodone HCl (Oxycodone Immediate Release Tab) 5 mg PO Q6H PRN PRN Reason: Pain, severe (8-10) Last Admin: 12/16/17 01:45 Dose: 5 mg Pantoprazole Sodium (Protonix Ec Tab) 40 mg PO 0600 [facility] Last Admin: 12/15/17 05:00 Dose: 40 mg Polyethylene Glycol (Miralax) 17 gm PO BID [facility] Last Admin: 12/16/17 10:02 Dose: 17 gm Potassium Phos/Sodium Phos (Neutra-Phos) 1 pkt PO TID [facility] Last Admin: 12/16/17 13:22 Dose: Not Given Saliva Substitute (Saliva Substitute) 0 ml PO WM [facility] Last Admin: 12/16/17 13:22 Dose: Not Given Vitamin A (Vitamin A & D Oint Ud Foilpak) 1 ea TOP TID [facility] Last Admin: 12/16/17 13:22 Dose: 1 ea Zolpidem Tartrate (Ambien) 5 mg PO HS PRN; Protocol PRN Reason: Insomnia Last Admin: 12/15/17 22:29 Dose: 5 mg - Labs Labs: 12/16/17 08:30 12/16/17 08:30 Assessment and Plan - Assessment and Plan (Free Text) Assessment: Brief history of present illness: A 72 year old male who came in to the ER due to failure to thrive and lightheadedness. Patient has history of non-small cell lung cancer with bone mets, right tip pathological fracture, sacral ulcer stage 4. low WBC. today, had episode of SVT. Electrolyte related Potassium 2.8.
--- NOTE | 2017-12-16 13:49 | CP.PCM.CON ---
History of Present Illness - History of Present Illness History of Present Illness: Awake, alert, no distress Reason for consultation: Cardiac evaluation for SVT, history of non-small cell lung cancer with bone metastasis, potassium level 2.8 Brief history of present illness: A 72 year old male who came in to the ER due to failure to thrive and lightheadedness. Patient has history of smoking,non- small cell lung cancer with bone mets, right tibial pathological fracture, had right tibial nail and catrachito placement, sacral ulcer stage 4. low WBC. today , had episode of SVT. Electrolyte related Potassium 2.8. Seen and examined by me and Dr. Sahu Review of Systems - Review of Systems All systems: reviewed and no additional remarkable complaints except Review of Systems: as per HPI Past Patient History - Infectious Disease Hx of Infectious Diseases: None - Past Social History Smoking Status: Former Smoker - CARDIAC Hx Cardiac Disorders: No - PULMONARY Hx Respiratory Disorders: No - NEUROLOGICAL Hx Neurological Disorder: No - HEENT Hx HEENT Problems: No - RENAL Hx Chronic Kidney Disease: No - ENDOCRINE/METABOLIC Hx Endocrine Disorders: No - HEMATOLOGICAL/ONCOLOGICAL Hx Cancer: Yes (lung) - INTEGUMENTARY Hx Dermatological Problems: No - MUSCULOSKELETAL/RHEUMATOLOGICAL Hx Musculoskeletal Disorders: Yes Hx Falls: Yes (mechanical fall) - GASTROINTESTINAL Hx Gastrointestinal Disorders: No - GENITOURINARY/GYNECOLOGICAL Hx Genitourinary Disorders: No - PSYCHIATRIC Hx Psychophysiologic Disorder: Yes Hx Anxiety: Yes - SURGICAL HISTORY Hx Surgeries: Yes Other/Comment: 11/14/17: right tibial nail and catrachito placement - ANESTHESIA Hx Anesthesia Reactions: No Hx Malignant Hyperthermia: No Meds Home Medications: Home Medication List Medication Instructions Recorded Confirmed Type Dronabinol [Marinol] 5 mg PO BID #0 12/11/17 Rx Metoprolol Tartrate [Lopressor] 25 mg PO BID #0 12/11/17 Rx Allergies/Adverse Reactions: Allergies Allergy/AdvReac Type Severity Reaction Status Date / Time aspirin AdvReac Intermediate NAUSEA Verified 11/06/17 11:48 - Medications Medications: Current Medications Acetaminophen (Tylenol 325mg Tab) 650 mg PO Q6H PRN PRN Reason: PAIN/FEVER Last Admin: 12/13/17 08:28 Dose: 650 mg Acetylcysteine (Acetylcysteine 20%) 3 ml IH [id number] [facility] Last Admin: 12/16/17 08:10 Dose: 3 ml Albuterol/Ipratropium (Duoneb 3 Mg/0.5 Mg (3 Ml) Ud) 3 ml IH Q6H PRN PRN Reason: Shortness of Breath Last Admin: 12/12/17 19:27 Dose: 3 ml Alprazolam (Xanax) 0.25 mg PO Q8H [facility] PRN Reason: Protocol Stop: 12/19/17 17:05 Last Admin: 12/16/17 09:59 Dose: 0.25 mg Arformoterol Tartrate (Brovana) 15 mcg IH [id number] [facility] Last Admin: 12/16/17 08:10 Dose: 15 mcg Atenolol (Tenormin) 12.5 mg PO BID [facility] Last Admin: 12/16/17 11:48 Dose: 12.5 mg Atorvastatin Calcium (Lipitor) 10 mg PO DIN [facility] Last Admin: 12/15/17 17:37 Dose: 10 mg Calcium Carbonate (Caltrate) 600 mg PO BID [facility] Last Admin: 12/16/17 09:59 Dose: 600 mg Collagenase (Santyl) 1 gm TOP DAILY [facility] Last Admin: 12/16/17 10:02 Dose: 1 applic Al Hydrox/Mg Hydrox/Simethicone 30 ml/Diphenhydramine HCl 75 mg/Lidocaine 30 ml 0 ml PO Q2H PRN PRN Reason: MOUTH/THROAT PAIN Docusate Sodium (Colace) 200 mg PO BID [facility] Last Admin: 12/16/17 09:58 Dose: 200 mg Enoxaparin Sodium (Lovenox) 30 mg SC DAILY [facility] PRN Reason: Protocol Last Admin: 12/16/17 10:00 Dose: 30 mg Folic Acid (Folic Acid) 1 mg PO BID [facility] Last Admin: 12/16/17 09:59 Dose: 1 mg Dextrose/Sodium Chloride (Dextrose 5%/0.45% Ns 1000 Ml) 1,000 mls @ 85 mls/hr IV .[id number] [facility] Last Admin: 12/16/17 09:56 Dose: 85 mls/hr Meropenem (Merrem Iv 1 Gm Premix) 50 mls @ 100 mls/hr IVPB Q8 [facility] PRN Reason: Protocol Stop: 12/21/17 14:01 Last Admin: 12/16/17 05:27 Dose: 100 mls/hr Vancomycin HCl (Vancomycin 1gm) 1 gm in 250 mls @ 167 mls/hr IVPB Q12H [facility] PRN Reason: Protocol Stop: 12/21/17 13:46 Last Admin: 12/16/17 01:46 Dose: 167 mls/hr Potassium Chloride (Potassium Chloride 20 Meq/100 Ml) 20 meq in 100 mls @ 50 mls/hr IVPB Q2H [facility] Stop: 12/16/17 16:29 Last Admin: 12/16/17 13:18 Dose: 50 mls/hr Lactic Acid (Lac-Hydrin 12% Cream (140 G)) 1 ea TOP DAILY [facility] Last Admin: 12/16/17 10:05 Dose: 1 appl Lidocaine (Lidocaine 5%) 0 gm TOP TID [facility] Last Admin: 12/16/17 13:21 Dose: 1 applic Megestrol Acetate (Megace) 40 mg PO DAILY [facility] Last Admin: 12/16/17 10:00 Dose: 40 mg Mirtazapine (Remeron) 15 mg PO HS [facility] Last Admin: 12/15/17 22:26 Dose: 15 mg Non-Formulary Medication (Dimethicone [Proshield Plus Skin Protectant]) 1 applic TOP DAILY [facility] Last Admin: 12/16/17 10:03 Dose: Not Given Ondansetron HCl (Zofran Tab) 4 mg PO Q6 PRN PRN Reason: Nausea/Vomiting Last Admin: 12/15/17 15:18 Dose: 4 mg Oxycodone HCl (Oxycodone Immediate Release Tab) 5 mg PO Q6H PRN PRN Reason: Pain, severe (8-10) Last Admin: 12/16/17 01:45 Dose: 5 mg Pantoprazole Sodium (Protonix Ec Tab) 40 mg PO 0600 [facility] Last Admin: 12/15/17 05:00 Dose: 40 mg Polyethylene Glycol (Miralax) 17 gm PO BID [facility] Last Admin: 12/16/17 10:02 Dose: 17 gm Potassium Phos/Sodium Phos (Neutra-Phos) 1 pkt PO TID [facility] Last Admin: 12/16/17 13:22 Dose: Not Given Saliva Substitute (Saliva Substitute) 0 ml PO WM [facility] Last Admin: 12/16/17 13:22 Dose: Not Given Vitamin A (Vitamin A & D Oint Ud Foilpak) 1 ea TOP TID [facility] Last Admin: 12/16/17 13:22 Dose: 1 ea Zolpidem Tartrate (Ambien) 5 mg PO HS PRN; Protocol PRN Reason: Insomnia Last Admin: 12/15/17 22:29 Dose: 5 mg Physical Exam - Constitutional Appears: No Acute Distress - Eye Exam Eye Exam: Normal appearance - ENT Exam ENT Exam: Mucous Membranes Moist - Respiratory Exam Respiratory Exam: Decreased Breath Sounds, NORMAL BREATHING PATTERN - Cardiovascular Exam Cardiovascular Exam: +S1, +S2 Additional comments: right chest port/accessed - GI/Abdominal Exam GI & Abdominal Exam: Normal Bowel Sounds, Soft - Neurological Exam Neurological exam: Alert - Psychiatric Exam Psychiatric exam: Normal Affect - Skin Skin Exam: Dry, Warm Additional comments: sacral ulcer Results - Vital Signs Recent Vital Signs: Last Vital Signs Temp 97.8 F 12/16/17 08:08 Pulse 95 H 12/16/17 11:48 Resp 20 12/16/17 08:08 BP 122/61 12/16/17 11:48 Pulse Ox 99 12/15/17 17:24 - Labs Result Diagrams: 12/16/17 08:30 12/16/17 08:30 Labs: Laboratory Results - last 24 hr 12/16/17 12/16/17 08:30 08:30 WBC 11.8 H RBC 3.15 L Hgb 9.3 L Hct 29.4 L MCV 93.3 MCH 29.5 MCHC 31.6 RDW 17.3 H Plt Count 214 MPV 9.6 Gran % 85.7 H Lymph % (Auto) 8.5 L Tripp % (Auto) 5.3 Eos % (Auto) 0.4 L Baso % (Auto) 0.1 Gran # 10.12 H Lymph # (Auto) 1.0 L Tripp # (Auto) 0.6 Eos # (Auto) 0.1 Baso # (Auto) 0.01 Sodium 134 Potassium 2.8 L* Chloride 93 L Carbon Dioxide 37 H Anion Gap 7 L BUN 6 L Creatinine 0.3 L Est GFR ( Amer) > 60 Est GFR (Non-Af Amer) > 60 Random Glucose 114 H Calcium 7.0 L Magnesium 1.8 Total Bilirubin 0.5 AST 23 ALT 27 Alkaline Phosphatase 97 Total Protein 4.9 L Albumin 2.2 L Globulin 2.7 Albumin/Globulin Ratio 0.8 L Assessment & Plan - Assessment and Plan (Free Text) Assessment: A 72 year old male who came in to the ER due to failure to thrive and lightheadedness. Patient has history of smoking,non-small cell lung cancer with bone mets, right tibial pathological fracture,11/14/17 had right tibial nail and catrachito placement, sacral ulcer stage 4. low WBC. today, had episode of SVT. Electrolyte related Potassium 2.8. 12 lead EKG normal Review of previous cardiac work up: 12/13/17- ECHO LVEF 50%,moderately dilated RV,moderately reduced systolic function moderate pulmonary hypertension Plan: SVT related to low potassium K+ 2.8- replenished potassium Repeat level in AM Mg-1.8 normal On Lopressor 25 mg BID, changed to Atenolol 12,5 mg BID Blood pressure stable Continue telemetry 12 lead EKG in AM Will change albuterol to Xopenex to avoid tachycardia Continue current treatment Continue current medications Will follow up Plan and treatment discussed with Dr. Sahu Thank you Dr. Durbin for the opportunity of taking care og Mr. Alton Joneskeelyreese. - Date & Time Date: 12/16/17 Time: 11:00
--- NOTE | 2017-12-16 17:00 | PN ---
DATE: 12/16/2017 PULMONARY PROGRESS NOTE REFERRING PHYSICIAN: Dr. Wolf. SUBJECTIVE: He is lying in the bed, head at 45 degrees. Family, daughter is at bedside. They were trying to feed the patient. He was choking, coughing, unable to swallow, pocketing food in the mouth. No hemoptysis. No emesis or hematuria. No diarrhea. No leg pain or leg swelling. OBJECTIVE: GENERAL: In no acute distress. VITAL SIGNS: Temperature is 98, heart rate is 95, respiratory rate is 20, blood pressure 122/61, pulse ox 99% on nasal cannula. HEENT: Moist mucous membrane. Crowded airway. NECK: Supple. No JVD. LUNGS: Have scattered rhonchi. HEART: S1 and S2. ABDOMEN: Soft, nontender. No organomegaly. EXTREMITIES: No edema. NEUROLOGICAL: Awake and alert. Follows simple command. MEDICATIONS: He is on Mucomyst 20% inhaled twice a day, Ambien 5 mg at bedtime p.r.n., Brovana inhaled twice a day, calcium carbonate 600 mg twice a day, Colace 200 mg twice a day, IV fluid, D5 half normal saline 85 mL/hour, folic acid 1 mg daily, lidocaine patch to the affected area, Lipitor 10 mg day, Lovenox 30 mg subcu daily, Megace 40 mg daily, meropenem 1 g IV every 8 hours, MiraLax 17 g twice a day, Neutra-Phos 1 pack 3 times a day, oxycodone immediate release 5 mg every 6 hours p.r.n., potassium supplement, Protonix 40 mg daily, Remeron 15 mg at bedtime, Saliva Substitute with the meals, Santyl at affected area, Tenormin 12.5 mg twice a day, Tylenol p.r.n., vancomycin 1 g IV every 12 hours, Xanax 0.25 mg every 8 hours, Xopenex every 6 hours p.r.n., Zofran p.r.n. basis. LABORATORY DATA: Shows hemoglobin 9.3, hematocrit 29.4, WBC 11.8, platelet is 214. Sodium 134, potassium 2.8, chloride 93, bicarbonate 37, BUN 6, creatinine 0.3, glucose is 114, calcium is 7, AST 23, ALT 27, alkaline phosphatase is 97. Albumin is 2.2. Repeat blood culture, there is no growth. IMPRESSION AND PLAN: Metastatic lung cancer involving the bones, vertebra, also pathological fracture of the right tibia requiring surgery, chronic obstructive lung disease, left upper lobe atelectasis with tumor obstruction, malnutrition, decubiti ulcer, oropharyngeal dysphagia. I had long discussion with Dr. Wolf. Spoke to family at bedside. Also, spoke to the patient and nursing staff. We will keep the patient n.p.o. for now. Place Dobbhoff tube after checking the x-ray. We will start continuous NG tube feeding. GI consult. Family and patient agree with G-tube placement. The patient is malnourished on chemotherapy, nonhealing decubiti ulcer. Keep head elevated at 45 degrees. Continue bronchodilators. Thank you and we will follow with you. Judit Dent MD
--- NOTE | 2017-12-16 20:33 | CARD ---
APPROVED REPORT Date of service: 12/16/2017 EKG Measurement Heart [id number] <Conclusion> Sinus rhythm with premature supraventricular complexes Right bundle branch block Lateral infarct, age undetermined Abnormal ECG
--- NOTE | 2017-12-17 00:10 | US ---
PROCEDURE: Right upper extremity venous US CLINICAL HISTORY: Arm pain and swelling Evaluate for deep venous thrombosis. PHYSICIAN(S): Arthur Chandler M.D FINDINGS: The visualized rightinternal jugular vein is sonographically normal and compressible. No evidence of obstruction or thrombus is seen. The visualized segments of the right subclavian vein are patent with normal waveforms. No sonographic evidence of obstruction or thrombosis is seen. The visualized deep venous system of the proximal right upper extremity is sonographically normal and compressible. IMPRESSION: 1. No sonographic evidence for deep venous thrombosis in the visualized segments of the right upper extremity.
[2017-12-17] MEDS: Vancomycin 1gm in NS 250ml 1 GM/250 ML BAG IVPB SCH ×2 (02:31→12:47)
[2017-12-17] MEDS: Meropenem IV 1 gm in NS 50 ML IVPB SCH ×3 (05:37→21:08)
[2017-12-17] MEDS: Pantoprazole 40 mg EC Tab PO SCH (05:39)
--- NOTE | 2017-12-17 05:44 | PN ---
DATE: 12/16/2017 ONCOLOGY PROGRESS NOTE SUBJECTIVE: Subjectively, patient is examined. He is lying in bed with head at 60 degrees. Family, daughter, and son are at the bedside. They are trying to feed the patient. Patient is having multiple episodes of various choking, coughing, unable to swallow, pocketing the food in the mouth as per the nurse's discussion with me earlier prior to entering the room. No history of hemoptysis. No emesis, hematuria, fevers, chills, or diarrhea. Patient is weak. Has been unable to sit out of bed and the chair, which we are attempting to do for his sacral decubitus. Patient states the pain in the right ankle and right tibia is a little bit better, but still has tremendous problems communicating because his voice is very weak. OBJECTIVE: GENERAL: Patient is in no acute distress. VITAL SIGNS: Vital signs are stable. T-max is 98.4, heart rate is 95, respirations 20, blood pressure is 122/61, pulse ox is 99% on nasal cannula. HEENT: Head is normocephalic, atraumatic. Temporal muscle wasting is noted. Patient has crowded airways. Examination of the oropharynx reveals tongue to be moist. No ulcerations are noted. Patient has retained food in his mouth. NECK: Supple. There is no jugular venous distention. LUNGS: Lungs reveal scattered rhonchi bilaterally. Expiratory phase of breathing is prolonged. Patient has good air entry in the left upper lobe, which previously was collapsed. HEART: Heart reveals S1 and S2 to be normal. No gallop or murmur is heard. ABDOMEN: Soft, scaphoid. Liver and spleen not palpable. No rebound, rigidity, or guarding is noted. EXTREMITIES: Patient has no ankle edema. He has slight tenderness and soreness over the dorsum of his right foot area on his tibia on the right side. Has radiation treatment markings. Plan was to give 4 radiation treatments out of which 3 may be still remaining. The left foot is unremarkable. MEDICATIONS: Patient's medications are reviewed. He is on Mucomyst 20% inhaled twice a day, Ambien 5 mg at bedtime, Brovana inhaled twice a day, calcium carbonate 600 mg twice a day, Colace 200 b.i.d. He is on intravenous fluid half normal saline 85 mL an hour, folic acid 1 mg daily, lidocaine patch to the affected areas for relief of pain, Lipitor 10 mg daily, Lovenox 30 mg daily subcu, Megace 40 mg daily, meropenem 1 g intravenous every 8 hours, MiraLax 17 g b.i.d., Neutra-Phos 1 pack 3 times a day, oxycodone 5 mg every 6 hours p.r.n. for pain in the leg, Saliva Substitute meals. Patient has been getting topical treatments, fentanyl for the sacral decubitus with Optifoam dressing, but he still has significant decubitus. Tenormin 12.5 mg twice a day, Tylenol p.r.n., vancomycin 1 g intravenous every 12 hours, Xanax 0.25 every 8 hours, Xopenex every 6 hours, and Zofran p.r.n. Patient has also been getting intravenous potassium 10 mEq x3 doses. LABORATORY DATA: Repeat labs are pending. Lab data shows hemoglobin of 9.3, hematocrit 29.4, white count is 11.4, platelet count is 214. Sodium is 134, potassium is 2.8, chloride is , bicarbonate is 37, BUN is 6, magnesium is 1.8. Creatinine is 0.3. Albumin is 2.2. Repeat blood culture shows no growth. Patient is on broad-spectrum antibiotics as the initial culture showed staph coagulase negative organism on the initial culture. Echo has been normal. ASSESSMENT, NOTES AND PLAN: Patient has metastatic stage intravenous non-small cell lung carcinoma involving the bones, also has pathologic fracture of the right tibia requiring surgery and radiation; chronic obstructive lung disease with left mainstem bronchus having occlusion, status post radiation to the same; left upper lobe atelectasis; malnutrition; decubitus ulcer; oropharyngeal dysphagia. We had a long discussion with the patient and the family. Spoke to Dr. Dent. Spoke to Dr. Levine who is the garbage stoker on the case. Patient to be now kept for n.p.o.. Patient is going to have a Dobhoff feeding tube after checking the x-ray. We will start the patient on continuous nasogastric feeding. Family and the patient are in agreement with the gastrostomy tube placement. Patient is malnourished from both the cancer and chemotherapy, so giving him enteral feeding will help in strengthen and help in feel better. Had a long discussion with the patient in front of the family. Patient wants surgery to be done at this point in time and hence we are doing feeding tube. We will still have family who can see him on Monday who will make further decisions. Time spent with the family is greater than 60 to 90 minutes, out of which, time was spent in discussing treatment options, what needs to be done, what the overall prognosis and goals and outcome should be. I will have the family think about also advanced directives as well. Artem Wolf MD
[2017-12-17 06:58] LABS: ALB/GLOB RATIO 0.8 (1.1-1.8); ALBUMIN 2.1 g/dL (3.0-4.8); ALT/SGPT 24 U/L (7-56); AST/SGOT 32 U/L (17-59); BLOOD UREA NITROGEN 6 mg/dL (7-21); CALCIUM 7.4 mg/dL (8.4-10.5); GFR AFRICAN-AMERICAN > 60; GFR NON-AFRICAN AMERICAN > 60
[2017-12-17 07:05] LABS: BASO # 0.01 K/mm3 (0.0-2.0); BASO % 0.1 % (0.0-3.0); EOS % 0.3 % (1.5-5.0); GRAN # 10.69 (1.4-6.5); GRAN % 85.8 % (50.0-68.0); HEMOGLOBIN 8.8 g/dL (14.0-18.0); LYMPH # 1.1 (1.2-3.4); LYMPH % 8.4 % (22.0-35.0); MEAN CELL VOLUME 93.1 fl (80.0-105.0); MEAN CORPUSCULAR HGB CONC 31.2 g/dl (31.0-37.0); MEAN PLATELET VOLUME 9.9 fl (7.0-11.0); MONO # 0.7 (0.1-0.6); MONO % 5.4 % (1.0-6.0); RBC 3.03 10^6/uL (3.5-6.1); WHITE BLOOD COUNT 12.5 10^3/ul (4.5-11.0)
[2017-12-17] MEDS: Arformoterol 15 mcg/2 ml Inh Sol IH SCH ×2 (08:01→19:57)
[2017-12-17] MEDS: Acetylcysteine 20% Inhal Soln (4ml) IH SCH ×2 (08:01→19:57)
--- NOTE | 2017-12-17 08:48 | CP.PCM.PN ---
Subjective - Date & Time of Evaluation Date of Evaluation: 12/17/17 Time of Evaluation: 06:40 - Subjective Subjective: Awake, alert, on VM 40%. RN claimed oxygen saturation below 90's on nasal cannula Reason for consultation: Cardiac evaluation for SVT, history of non-small cell lung cancer with bone metastasis, potassium level 2.8 Seen and examined by me and Dr. Sahu Objective - Vital Signs/Intake and Output Vital Signs (last 24 hours): Temp Pulse Resp BP Pulse Ox 97.5 F L 100 H 20 115/58 L 90 L 12/17/17 07:57 12/17/17 07:57 12/17/17 07:57 12/17/17 07:57 12/17/17 07:57 Intake and Output: 12/17/17 12/17/17 06:59 18:59 Intake Total 0 Output Total 1600 Balance -1600 - Medications Medications: Current Medications Acetaminophen (Tylenol 325mg Tab) 650 mg PO Q6H PRN PRN Reason: PAIN/FEVER Last Admin: 12/13/17 08:28 Dose: 650 mg Acetylcysteine (Acetylcysteine 20%) 3 ml IH [id number] [facility] Last Admin: 12/17/17 08:01 Dose: Not Given Alprazolam (Xanax) 0.25 mg PO Q8H [facility] PRN Reason: Protocol Stop: 12/19/17 17:05 Last Admin: 12/16/17 17:43 Dose: Not Given Arformoterol Tartrate (Brovana) 15 mcg IH [id number] [facility] Last Admin: 12/17/17 08:01 Dose: Not Given Atenolol (Tenormin) 25 mg PO DAILY [facility] Atorvastatin Calcium (Lipitor) 10 mg PO DIN [facility] Last Admin: 12/16/17 17:41 Dose: Not Given Calcium Carbonate (Caltrate) 600 mg PO BID [facility] Last Admin: 12/16/17 17:40 Dose: Not Given Collagenase (Santyl) 1 gm TOP DAILY [facility] Last Admin: 12/16/17 10:02 Dose: 1 applic Al Hydrox/Mg Hydrox/Simethicone 30 ml/Diphenhydramine HCl 75 mg/Lidocaine 30 ml 0 ml PO Q2H PRN PRN Reason: MOUTH/THROAT PAIN Docusate Sodium (Colace) 200 mg PO BID [facility] Last Admin: 07/28/18 17:41 Dose: Not Given Enoxaparin Sodium (Lovenox) 30 mg SC DAILY [facility] PRN Reason: Protocol Last Admin: 12/16/17 10:00 Dose: 30 mg Folic Acid (Folic Acid) 1 mg PO BID [facility] Last Admin: 12/16/17 17:54 Dose: Not Given Dextrose/Sodium Chloride (Dextrose 5%/0.45% Ns 1000 Ml) 1,000 mls @ 85 mls/hr IV .[id number] [facility] Last Admin: 12/16/17 09:56 Dose: 85 mls/hr Meropenem (Merrem Iv 1 Gm Premix) 50 mls @ 100 mls/hr IVPB Q8 [facility] PRN Reason: Protocol Stop: 12/21/17 14:01 Last Admin: 12/17/17 05:37 Dose: 100 mls/hr Vancomycin HCl (Vancomycin 1gm) 1 gm in 250 mls @ 167 mls/hr IVPB Q12H [facility] PRN Reason: Protocol Stop: 12/21/17 13:46 Last Admin: 12/17/17 02:31 Dose: 167 mls/hr Lactic Acid (Lac-Hydrin 12% Cream (140 G)) 1 ea TOP DAILY [facility] Last Admin: 12/16/17 10:05 Dose: 1 appl Levalbuterol HCl (Xopenex) 0.63 mg IH [id number] PRN PRN Reason: Shortness of Breath Lidocaine (Lidocaine 5%) 0 gm TOP TID [facility] Last Admin: 12/16/17 17:41 Dose: 1 applic Megestrol Acetate (Megace) 40 mg PO DAILY [facility] Last Admin: 12/16/17 10:00 Dose: 40 mg Mirtazapine (Remeron) 15 mg PO HS [facility] Last Admin: 12/16/17 22:12 Dose: Not Given Non-Formulary Medication (Dimethicone [Proshield Plus Skin Protectant]) 1 applic TOP DAILY [facility] Last Admin: 12/16/17 10:03 Dose: Not Given Ondansetron HCl (Zofran Tab) 4 mg PO Q6 PRN PRN Reason: Nausea/Vomiting Last Admin: 12/15/17 15:18 Dose: 4 mg Oxycodone HCl (Oxycodone Immediate Release Tab) 5 mg PO Q6H PRN PRN Reason: Pain, severe (8-10) Last Admin: 12/16/17 01:45 Dose: 5 mg Pantoprazole Sodium (Protonix Ec Tab) 40 mg PO 0600 [facility] Last Admin: 12/17/17 05:39 Dose: Not Given Polyethylene Glycol (Miralax) 17 gm PO BID [facility] Last Admin: 12/16/17 17:41 Dose: Not Given Potassium Phos/Sodium Phos (Neutra-Phos) 1 pkt PO TID [facility] Last Admin: 12/16/17 17:42 Dose: Not Given Saliva Substitute (Saliva Substitute) 0 ml PO WM [facility] Last Admin: 12/16/17 13:22 Dose: Not Given Vitamin A (Vitamin A & D Oint Ud Foilpak) 1 ea TOP TID [facility] Last Admin: 12/16/17 17:40 Dose: 1 ea Zolpidem Tartrate (Ambien) 5 mg PO HS PRN; Protocol PRN Reason: Insomnia Last Admin: 12/15/17 22:29 Dose: 5 mg - Labs Labs: 12/17/17 06:25 12/17/17 06:25 - Constitutional Appears: No Acute Distress - Eye Exam Eye Exam: Normal appearance - ENT Exam ENT Exam: Mucous Membranes Moist - Respiratory Exam Respiratory Exam: Decreased Breath Sounds, NORMAL BREATHING PATTERN Additional comments: VM 40 % - Cardiovascular Exam Cardiovascular Exam: REGULAR RHYTHM, +S1, +S2 - GI/Abdominal Exam GI & Abdominal Exam: Soft, Normal Bowel Sounds - Neurological Exam Neurological Exam: Alert, Awake, Oriented x3 - Psychiatric Exam Psychiatric exam: Normal Affect - Skin Skin Exam: Dry, Warm Assessment and Plan - Assessment and Plan (Free Text) Assessment: A 72 year old male who came in to the ER due to failure to thrive and lightheadedness. Patient has history of smoking,non-small cell lung cancer with bone mets, right tibial pathological fracture,11/14/17 had right tibial nail and catrachito placement, sacral ulcer stage 4. low WBC. today, had episode of SVT. Electrolyte related Potassium 2.8. 12 lead EKG normal. 12/13/17- ECHO LVEF 50%, moderately dilated RV,moderately reduced systolic function, moderate pulmonary hypertension. Plan: No more episodes of SVT, telemetry NSR K level today 3.2, replenish with IV potassium Patient NPO pending swallowing evaluation On Lopressor 25 mg BID, changed to Atenolol 12,5 mg BID Blood pressure stable Continue telemetry Continue current treatment Continue current medications Will follow up Plan and treatment discussed with Dr. Sahu
--- NOTE | 2017-12-17 09:49 | PN ---
DATE: 12/17/2017 SUBJECTIVE: The patient is in bed, in no acute distress, nontoxic. OBJECTIVE: VITAL SIGNS: On exam, temperature is 97, blood pressure is 115/50, respiratory rate of 20, heart rate of 100. HEENT: Examination is unremarkable. NECK: Supple. LUNGS: Have decreased breath sounds. HEART: Normal S1, S2. ABDOMEN: Soft, nontender. DATA: Laboratory examination reveals a white count of 12,500, hemoglobin of 8. Chemistries reveals a BUN of 6, creatinine of 0.3, procalcitonin is revealed to be 0.10. Microbiology as noted to be Coag-negative staph. Repeat blood cultures from 12/13/2017, there are no growth at 3 days and the patient is on vancomycin, which requires renewal, which I have done so. The patient is also on meropenem, which requires renewal. ASSESSMENT AND PLAN: This is a 72-year-old male seen earlier this morning in [facility], bed 2 with sepsis secondary to Coag-negative staph bacteremia with a possible Port-A-Cath as the source with an unstageable sacral ulcer and source in a patient with metastatic non-small cell lung cancer, on vancomycin day #5 and the patient is also on meropenem day #5 with complete 10 days of vancomycin. The echo has no vegetation, no evidence of endocarditis and bacteremia cleared. He states that if the coag-negative staph bacteremia recurs, we will need removal of Port-A-Cath. Barrera Purdy MD
[2017-12-17] MEDS: POLYETHYLENE GLYCOL 3350 17 GM/Dose PACKET PO SCH ×2 (10:37→17:16)
[2017-12-17] MEDS: DIMETHICONE TOP SCH (10:37)
[2017-12-17] MEDS: Potassium & Sodium Phosphate PO SCH ×3 (10:37→17:16)
[2017-12-17] MEDS: Saliva Substitute 44.3 ML PO SCH ×3 (10:38→17:12)
[2017-12-17] MEDS: Vitamins A & D Oint UD Foilpak TOP SCH ×3 (10:44→17:12)
[2017-12-17] MEDS: Collagenase 250 Units/gm Ointment(30 gm) TOP SCH (10:45)
[2017-12-17] MEDS: Enoxaparin 30 mg Syringe SC SCH (10:53)
[2017-12-17] MEDS: Lidocaine 5% Oint(35 gm) TOP SCH ×3 (10:56→17:13)
[2017-12-17] MEDS: Ammonium Lactate 12% Cream (140 g) TOP SCH (10:56)
[2017-12-17 12:33] LABS: ARTERIAL BLOOD GAS HCO3 34.3 mmol/L (21-28); ARTERIAL BLOOD GAS HEMOGLOBIN 8.5 g/dL (11.7-17.4); ARTERIAL BLOOD GAS O2 CAPACITY 11.5 mL/dl (16-24); ARTERIAL BLOOD GAS O2 CONTENT 10.8 ML/dl (15-23); ARTERIAL BLOOD GAS PCO2 46 mm/Hg (35-45); ARTERIAL BLOOD GAS PH 7.48 (7.35-7.45); ARTERIAL BLOOD GAS TCO2 35.7 mmol.L (22-28)
[2017-12-17] MEDS: Metoprolol 1 mg/ml Inj IVP SCH ×2 (12:48→17:13)
--- NOTE | 2017-12-17 13:50 | CP.PCM.CON ---
<Emily Marley - Last Filed: 12/17/17 13:58> History of Present Illness - History of Present Illness History of Present Illness: PGY5 Initial GI consult Mr. Monson is a 72 year old male with PMH of stage IV NSCLC (with bony metastases, diagnosed last month, treated with palliative radiation by Dr. Vega) , COPD, R tibial pathological fx, sacral decubitus ulcer stage IV who was admitted from [facility] for failure to thrive and dysphagia. Pt was difficult to communicate with, but refused any feeding tube. As per RN, certified surgical assistant attempted to insert doboff NG tube overnight, but was not successful. As per RN, pt has been NPO due to risk of aspiration. As per conversation with hem/onc, pt has poor PO intake intake and he wanted eval for PEG for nutritional support. Pt was on ventimask upon examination due to SOB. PMH:metastatic NSC lung cancer, right tibial fx s/p ORIF, HTN, HLD,intractable pain,COPD, anemia, anxiety, and constipation PSH: right tibial ORIF for pathologic fracture SH: former heavy smoker Family hx: reviewed, denied any hx of Gi related malignancies ROS: 12 point ROS conducted, neg other than above Past Patient History - Infectious Disease Hx of Infectious Diseases: None - Past Social History Smoking Status: Former Smoker - CARDIAC Hx Cardiac Disorders: No - PULMONARY Hx Respiratory Disorders: No - NEUROLOGICAL Hx Neurological Disorder: No - HEENT Hx HEENT Problems: No - RENAL Hx Chronic Kidney Disease: No - ENDOCRINE/METABOLIC Hx Endocrine Disorders: No - HEMATOLOGICAL/ONCOLOGICAL Hx Cancer: Yes (lung) - INTEGUMENTARY Hx Dermatological Problems: No - MUSCULOSKELETAL/RHEUMATOLOGICAL Hx Musculoskeletal Disorders: Yes Hx Falls: Yes (mechanical fall) - GASTROINTESTINAL Hx Gastrointestinal Disorders: No - GENITOURINARY/GYNECOLOGICAL Hx Genitourinary Disorders: No - PSYCHIATRIC Hx Psychophysiologic Disorder: Yes Hx Anxiety: Yes - SURGICAL HISTORY Hx Surgeries: Yes Other/Comment: 11/14/17: right tibial nail and catrachito placement - ANESTHESIA Hx Anesthesia Reactions: No Hx Malignant Hyperthermia: No Meds Home Medications: Home Medication List Medication Instructions Recorded Confirmed Type Dronabinol [Marinol] 5 mg PO BID #0 12/11/17 Rx Metoprolol Tartrate [Lopressor] 25 mg PO BID #0 12/11/17 Rx Allergies/Adverse Reactions: Allergies Allergy/AdvReac Type Severity Reaction Status Date / Time aspirin AdvReac Intermediate NAUSEA Verified 11/06/17 11:48 - Medications Medications: Current Medications Acetaminophen (Tylenol 325mg Tab) 650 mg PO Q6H PRN PRN Reason: PAIN/FEVER Last Admin: 12/13/17 08:28 Dose: 650 mg Acetylcysteine (Acetylcysteine 20%) 3 ml IH [id number] [facility] Last Admin: 12/17/17 08:01 Dose: Not Given Alprazolam (Xanax) 0.25 mg PO Q8H [facility] PRN Reason: Protocol Stop: 12/19/17 17:05 Last Admin: 12/17/17 13:00 Dose: Not Given Arformoterol Tartrate (Brovana) 15 mcg IH [id number] [facility] Last Admin: 12/17/17 08:01 Dose: Not Given Atorvastatin Calcium (Lipitor) 10 mg PO DIN [facility] Last Admin: 12/16/17 17:41 Dose: Not Given Calcium Carbonate (Caltrate) 600 mg PO BID [facility] Last Admin: 12/17/17 10:36 Dose: Not Given Collagenase (Santyl) 1 gm TOP DAILY [facility] Last Admin: 12/17/17 10:45 Dose: 1 applic Al Hydrox/Mg Hydrox/Simethicone 30 ml/Diphenhydramine HCl 75 mg/Lidocaine 30 ml 0 ml PO Q2H PRN PRN Reason: MOUTH/THROAT PAIN Docusate Sodium (Colace) 200 mg PO BID [facility] Last Admin: 12/17/17 10:36 Dose: Not Given Enoxaparin Sodium (Lovenox) 30 mg SC DAILY [facility] PRN Reason: Protocol Last Admin: 12/17/17 10:53 Dose: 30 mg Folic Acid (Folic Acid) 1 mg PO BID [facility] Last Admin: 12/17/17 10:37 Dose: Not Given Dextrose/Sodium Chloride (Dextrose 5%/0.45% Ns 1000 Ml) 1,000 mls @ 85 mls/hr IV .[id number] [facility] Last Admin: 12/16/17 09:56 Dose: 85 mls/hr Meropenem (Merrem Iv 1 Gm Premix) 50 mls @ 100 mls/hr IVPB Q8 [facility] PRN Reason: Protocol Stop: 12/21/17 14:01 Last Admin: 12/17/17 05:37 Dose: 100 mls/hr Vancomycin HCl (Vancomycin 1gm) 1 gm in 250 mls @ 167 mls/hr IVPB Q12H [facility] PRN Reason: Protocol Stop: 12/21/17 13:46 Last Admin: 12/17/17 12:47 Dose: 167 mls/hr Lactic Acid (Lac-Hydrin 12% Cream (140 G)) 1 ea TOP DAILY [facility] Last Admin: 12/17/17 10:56 Dose: 1 appl Levalbuterol HCl (Xopenex) 0.63 mg IH [id number] PRN PRN Reason: Shortness of Breath Lidocaine (Lidocaine 5%) 0 gm TOP TID [facility] Last Admin: 12/17/17 12:59 Dose: 1 applic Megestrol Acetate (Megace) 40 mg PO DAILY [facility] Last Admin: 12/17/17 10:37 Dose: Not Given Metoprolol Tartrate (Lopressor) 5 mg IVP Q6 [facility] Last Admin: 12/17/17 12:48 Dose: 5 mg Mirtazapine (Remeron) 15 mg PO HS [facility] Last Admin: 12/16/17 22:12 Dose: Not Given Non-Formulary Medication (Dimethicone [Proshield Plus Skin Protectant]) 1 applic TOP DAILY [facility] Last Admin: 12/17/17 10:37 Dose: Not Given Ondansetron HCl (Zofran Tab) 4 mg PO Q6 PRN PRN Reason: Nausea/Vomiting Last Admin: 12/15/17 15:18 Dose: 4 mg Oxycodone HCl (Oxycodone Immediate Release Tab) 5 mg PO Q6H PRN PRN Reason: Pain, severe (8-10) Last Admin: 12/16/17 01:45 Dose: 5 mg Pantoprazole Sodium (Protonix Ec Tab) 40 mg PO 0600 [facility] Last Admin: 12/17/17 05:39 Dose: Not Given Polyethylene Glycol (Miralax) 17 gm PO BID [facility] Last Admin: 12/17/17 10:37 Dose: Not Given Potassium Phos/Sodium Phos (Neutra-Phos) 1 pkt PO TID [facility] Last Admin: 12/17/17 12:59 Dose: Not Given Saliva Substitute (Saliva Substitute) 0 ml PO WM [facility] Last Admin: 12/17/17 12:59 Dose: 1 ml Vitamin A (Vitamin A & D Oint Ud Foilpak) 1 ea TOP TID [facility] Last Admin: 12/17/17 13:00 Dose: 1 ea Zolpidem Tartrate (Ambien) 5 mg PO HS PRN; Protocol PRN Reason: Insomnia Last Admin: 12/15/17 22:29 Dose: 5 mg Physical Exam - Constitutional Appears: No Acute Distress, Chronically Ill - Head Exam Head Exam: ATRAUMATIC, NORMOCEPHALIC - Eye Exam Eye Exam: Normal appearance Pupil Exam: NORMAL ACCOMODATION - ENT Exam ENT Exam: Mucous Membranes Dry - Neck Exam Neck exam: Positive for: Normal Inspection - Respiratory Exam Respiratory Exam: Rhonchi, Wheezes. absent: Respiratory Distress Additional comments: breathing slightly labored - Cardiovascular Exam Cardiovascular Exam: REGULAR RHYTHM, +S1, +S2 - GI/Abdominal Exam GI & Abdominal Exam: Normal Bowel Sounds, Soft. absent: Distended, Firm, Guarding, Organomegaly, Pulsatile Mass, Rebound, Rigid - Extremities Exam Extremities exam: Negative for: joint swelling, pedal edema - Neurological Exam Neurological exam: Alert, Oriented x3 - Psychiatric Exam Psychiatric exam: Flat Affect - Skin Skin Exam: Dry, Intact, Normal Color, Warm Results - Vital Signs Recent Vital Signs: Last Vital Signs Temp 97.5 F L 12/17/17 07:57 Pulse 95 H 12/17/17 12:48 Resp 20 12/17/17 07:57 BP 112/50 L 12/17/17 12:48 Pulse Ox 90 L 12/17/17 07:57 - Labs Result Diagrams: 12/17/17 06:25 12/17/17 06:25 Labs: Laboratory Results - last 24 hr 12/17/17 12/17/17 12/17/17 06:25 06:25 12:25 WBC 12.5 H RBC 3.03 L Hgb 8.8 L Hct 28.2 L MCV 93.1 MCH 29.0 MCHC 31.2 RDW 17.0 H Plt Count 203 MPV 9.9 Gran % 85.8 H Lymph % (Auto) 8.4 L Terrell % (Auto) 5.4 Eos % (Auto) 0.3 L Baso % (Auto) 0.1 Gran # 10.69 H Lymph # (Auto) 1.1 L Terrell # (Auto) 0.7 H Eos # (Auto) 0.0 Baso # (Auto) 0.01 pCO2 46 H pO2 54.0 L HCO3 34.3 H ABG pH 7.48 H ABG Total CO2 35.7 H ABG O2 Saturation 94.0 L ABG O2 Content 10.8 L ABG Base Excess 9.8 H ABG Hemoglobin 8.5 L ABG Carboxyhemoglobin 3.3 H POC ABG HHb (Measured) 5.8 H ABG Methemoglobin 0.7 ABG O2 Capacity 11.5 L Hgb O2 Saturation 90.3 L FiO2 40.0 Sodium 134 Potassium 3.2 L Chloride 94 L Carbon Dioxide 37 H Anion Gap 6 L BUN 6 L Creatinine 0.3 L Est GFR ( Amer) > 60 Est GFR (Non-Af Amer) > 60 Random Glucose 107 Calcium 7.4 L Total Bilirubin 0.5 AST 32 ALT 24 Alkaline Phosphatase 96 Total Protein 4.8 L Albumin 2.1 L Globulin 2.7 Albumin/Globulin Ratio 0.8 L Assessment & Plan - Assessment and Plan (Free Text) Assessment: Mr. Monson is a 72 year old male with PMH of stage IV NSCLC (with bony metastases, diagnosed last month, treated with palliative radiation by Dr. Vega) , COPD, R tibial pathological fx, sacral decubitus ulcer stage IV who was admitted from [facility] for failure to thrive and dysphagia. Failure to thrive risk of aspiration Dysphagia NSCLC Plan: -recommend modified batium swallow and speech eval, but pt refused eval -if passes speech, recommend starting appropriate diet and calorie count -would benefit from PEG placement or NG but pt refuses both -aspiration risk -care as per primary team -continue to monitor -continue IV fluids -pain management as per primary team D/W Dr. Levine. <Sam Levine V - Last Filed: 12/17/17 18:29> Meds - Medications Medications: Current Medications Acetaminophen (Tylenol 325mg Tab) 650 mg PO Q6H PRN PRN Reason: PAIN/FEVER Last Admin: 12/13/17 08:28 Dose: 650 mg Acetylcysteine (Acetylcysteine 20%) 3 ml IH [id number] [facility] Last Admin: 12/17/17 08:01 Dose: Not Given Alprazolam (Xanax) 0.25 mg PO Q8H [facility] PRN Reason: Protocol Stop: 12/19/17 17:05 Last Admin: 12/17/17 17:16 Dose: Not Given Arformoterol Tartrate (Brovana) 15 mcg IH [id number] [facility] Last Admin: 12/17/17 08:01 Dose: Not Given Atorvastatin Calcium (Lipitor) 10 mg PO DIN [facility] Last Admin: 12/17/17 17:13 Dose: Not Given Calcium Carbonate (Caltrate) 600 mg PO BID [facility] Last Admin: 12/17/17 17:13 Dose: Not Given Collagenase (Santyl) 1 gm TOP DAILY [facility] Last Admin: 12/17/17 10:45 Dose: 1 applic Al Hydrox/Mg Hydrox/Simethicone 30 ml/Diphenhydramine HCl 75 mg/Lidocaine 30 ml 0 ml PO Q2H PRN PRN Reason: MOUTH/THROAT PAIN Docusate Sodium (Colace) 200 mg PO BID [facility] Last Admin: 12/17/17 17:13 Dose: Not Given Enoxaparin Sodium (Lovenox) 30 mg SC DAILY [facility] PRN Reason: Protocol Last Admin: 12/17/17 10:53 Dose: 30 mg Folic Acid (Folic Acid) 1 mg PO BID [facility] Last Admin: 12/17/17 17:17 Dose: Not Given Dextrose/Sodium Chloride (Dextrose 5%/0.45% Ns 1000 Ml) 1,000 mls @ 85 mls/hr IV .[id number] [facility] Last Admin: 12/17/17 16:36 Dose: 85 mls/hr Meropenem (Merrem Iv 1 Gm Premix) 50 mls @ 100 mls/hr IVPB Q8 [facility] PRN Reason: Protocol Stop: 12/21/17 14:01 Last Admin: 12/17/17 14:54 Dose: 100 mls/hr Vancomycin HCl (Vancomycin 1gm) 1 gm in 250 mls @ 167 mls/hr IVPB Q12H [facility] PRN Reason: Protocol Stop: 12/21/17 13:46 Last Admin: 12/17/17 12:47 Dose: 167 mls/hr Lactic Acid (Lac-Hydrin 12% Cream (140 G)) 1 ea TOP DAILY [facility] Last Admin: 12/17/17 10:56 Dose: 1 appl Levalbuterol HCl (Xopenex) 0.63 mg IH [id number] PRN PRN Reason: Shortness of Breath Lidocaine (Lidocaine 5%) 0 gm TOP TID [facility] Last Admin: 12/17/17 17:13 Dose: 1 applic Megestrol Acetate (Megace) 40 mg PO DAILY [facility] Last Admin: 12/17/17 10:37 Dose: Not Given Metoprolol Tartrate (Lopressor) 5 mg IVP Q6 [facility] Last Admin: 12/17/17 17:13 Dose: 5 mg Mirtazapine (Remeron) 15 mg PO HS [facility] Last Admin: 12/16/17 22:12 Dose: Not Given Non-Formulary Medication (Dimethicone [Proshield Plus Skin Protectant]) 1 applic TOP DAILY [facility] Last Admin: 12/17/17 10:37 Dose: Not Given Ondansetron HCl (Zofran Tab) 4 mg PO Q6 PRN PRN Reason: Nausea/Vomiting Last Admin: 12/15/17 15:18 Dose: 4 mg Oxycodone HCl (Oxycodone Immediate Release Tab) 5 mg PO Q6H PRN PRN Reason: Pain, severe (8-10) Last Admin: 12/16/17 01:45 Dose: 5 mg Pantoprazole Sodium (Protonix Ec Tab) 40 mg PO 0600 [facility] Last Admin: 12/17/17 05:39 Dose: Not Given Polyethylene Glycol (Miralax) 17 gm PO BID [facility] Last Admin: 12/17/17 17:16 Dose: Not Given Potassium Phos/Sodium Phos (Neutra-Phos) 1 pkt PO TID [facility] Last Admin: 12/17/17 17:16 Dose: Not Given Saliva Substitute (Saliva Substitute) 0 ml PO WM [facility] Last Admin: 12/17/17 17:12 Dose: 1 ml Vitamin A (Vitamin A & D Oint Ud Foilpak) 1 ea TOP TID [facility] Last Admin: 12/17/17 17:12 Dose: 1 ea Zolpidem Tartrate (Ambien) 5 mg PO HS PRN; Protocol PRN Reason: Insomnia Last Admin: 12/15/17 22:29 Dose: 5 mg Results - Vital Signs Recent Vital Signs: Last Vital Signs Temp 98.6 F 12/17/17 17:12 Pulse 94 H 12/17/17 17:13 Resp 18 12/17/17 17:12 BP 121/58 L 12/17/17 17:13 Pulse Ox 85 L 12/17/17 17:12 - Labs Result Diagrams: 12/17/17 06:25 12/17/17 06:25 Labs: Laboratory Results - last 24 hr 12/17/17 12/17/17 12/17/17 06:25 06:25 12:25 WBC 12.5 H RBC 3.03 L Hgb 8.8 L Hct 28.2 L MCV 93.1 MCH 29.0 MCHC 31.2 RDW 17.0 H Plt Count 203 MPV 9.9 Gran % 85.8 H Lymph % (Auto) 8.4 L Terrell % (Auto) 5.4 Eos % (Auto) 0.3 L Baso % (Auto) 0.1 Gran # 10.69 H Lymph # (Auto) 1.1 L Terrell # (Auto) 0.7 H Eos # (Auto) 0.0 Baso # (Auto) 0.01 pCO2 46 H pO2 54.0 L HCO3 34.3 H ABG pH 7.48 H ABG Total CO2 35.7 H ABG O2 Saturation 94.0 L ABG O2 Content 10.8 L ABG Base Excess 9.8 H ABG Hemoglobin 8.5 L ABG Carboxyhemoglobin 3.3 H POC ABG HHb (Measured) 5.8 H ABG Methemoglobin 0.7 ABG O2 Capacity 11.5 L Hgb O2 Saturation 90.3 L FiO2 40.0 Sodium 134 Potassium 3.2 L Chloride 94 L Carbon Dioxide 37 H Anion Gap 6 L BUN 6 L Creatinine 0.3 L Est GFR ( Amer) > 60 Est GFR (Non-Af Amer) > 60 Random Glucose 107 Calcium 7.4 L Total Bilirubin 0.5 AST 32 ALT 24 Alkaline Phosphatase 96 Total Protein 4.8 L Albumin 2.1 L Globulin 2.7 Albumin/Globulin Ratio 0.8 L Attending/Attestation - Attestation I have personally seen and examined this patient.: Yes I have fully participated in the care of the patient.: Yes I have reviewed all pertinent clinical information: Yes Notes (Text): This is an addendum to GI progress report dictated by the GI Fellow.The patient was seen and examined earlier. Medical records, lab studies, imagings were reviewed. Last 24 hours events reviewed. Agreed with the above treatment plan as outlined in GI Fellow 's notes the with the addition of the following Metastatic lung cancer Aspiration pneumonia Poor by mouth intake Malnourished Attempted Dobbhoff tube yesterday not successful Discussed with the patient at length with nursing staff. Patient refused both NG feeding tube placement and also PEG tube placement. Will discuss with Dr. Wolf 12/17/17 18:28
--- NOTE | 2017-12-17 14:15 | PN ---
DATE: 12/17/2017 PULMONARY PROGRESS NOTE REFERRING PHYSICIAN: Artem Wolf MD. SUBJECTIVE: The patient is lying in the bed, head at 45 degrees. Overnight events noted. Oxygen requirement is increased, presently on Venturi mask. Awake, alert. Daughter is at bedside. Apparently this morning, he refused nasogastric tube or G-tube placement, but after discussion with the family at present time, he has agreed to go for the G-tube tomorrow. Does have a cough. Unable to clear pulmonary secretion. He is n.p.o. since last night. No hemoptysis. No hematemesis. No hematuria. No diarrhea reported. OBJECTIVE: GENERAL: In no acute distress. VITAL SIGNS: Temperature is 98, heart rate is 95, respiratory rate is 20, blood pressure 112/50, pulse ox 90% on Venturi mask. HEENT: Moist mucous membrane. No ulcer or thrush noted. NECK: Supple. No JVD. LUNGS: Have scattered rhonchi and wheezing. HEART: S1 and S2. ABDOMEN: Soft, nontender, no organomegaly. EXTREMITIES: No edema. NEUROLOGICAL: Awake and alert. Follows simple command. MEDICATIONS: He is on Mucomyst inhaled twice a day, Ambien 5 mg at bedtime p.r.n., Brovana inhaled twice a day, calcium carbonate twice a day, Colace 200 mg twice a day, IV fluid D5 half normal saline 85 mL/hour, also receiving folate 1 mg twice a day, Lipitor 10 mg daily, metoprolol tartrate is at 5 mg every 6 hours [id number], Lovenox 30 mg daily, also on Megace 40 mg daily, meropenem 1 g IV every 8 hours, MiraLax 17 g twice a day, Neutra-Phos one pack daily, OxyContin immediate release 5 mg every 6 hours p.r.n., Protonix 40 mg daily, Remeron 15 mg at bedtime, saliva substitute p.r.n. basis, also Santyl at affected area, Tylenol p.r.n., vancomycin 1 g IV every 12 hours, vitamin A and D ointment three times a day, Xanax 0.25 mg every 8 hours, Xopenex inhaled every 6 hours p.r.n., Zofran p.r.n. basis. LABORATORY DATA: Shows hemoglobin 8.8, hematocrit 28.2, WBC 12.5, platelet count is 203. Laboratory data other shows that ABG done, which shows pH 7.48, pCO2 is 46, O2 is 54. Sodium 134, potassium 3.2, chloride 94, bicarbonate 94, BUN 6, bicarb is 37, creatinine 0.3, glucose 107, calcium 7.4, AST 32, ALT 24, alk phos is 96, albumin is 2.1. Repeat blood culture, so far there is no growth. IMPRESSION AND PLAN: Metastatic lung cancer involving the bones, vertebra, also a pathologic fracture of the right tibia requiring surgery, chronic obstructive lung disease, left upper lobe atelectasis with tumor, malnutrition, decubitus ulcer, oropharyngeal dysphagia to the extent, cannot clear secretion, became hypoxemic. The patient has been n.p.o. since yesterday. I had long discussion with the patient and daughter at bedside. Finally, they agreed for gastrostomy tube placement. Option of supportive care and hospice was given. At present, they are choosing to go head with aggressive care including gastrostomy tube placement. Informed nursing staff who will inform Dr. Levine from GI Department to schedule for percutaneous endoscopic gastrostomy tube tomorrow. Titrate FIO2 to pulse ox about 90. Continue inhaled bronchodilator, p.r.n. bulb suction. Gastric prophylaxis. Sequential compression device to lower extremity. Thank you and we will follow with you. Judit Dent MD
--- NOTE | 2017-12-17 15:28 | CT ---
Date of service: 12/17/2017 PROCEDURE: CT HEAD WITHOUT CONTRAST. HISTORY: AMS COMPARISON: 10/09/2017. TECHNIQUE: Axial computed tomography images were obtained through the head/brain without intravenous contrast. Coronal and sagittal reconstructed images. Radiation dose: Total exam DLP = 846.10 mGy-cm. This CT exam was performed using one or more of the following dose reduction techniques: Automated exposure control, adjustment of the mA and/or kV according to patient size, and/or use of iterative reconstruction technique. FINDINGS: HEMORRHAGE: No intracranial hemorrhage. BRAIN: No mass effect or edema. Cortical atrophy, periventricular small vessel disease. Small old right the lamina chua infarct. VENTRICLES: Unremarkable. No hydrocephalus. CALVARIUM: Unremarkable. PARANASAL SINUSES: Unremarkable as visualized. No significant inflammatory changes. MASTOID AIR CELLS: Unremarkable as visualized. No inflammatory changes. OTHER FINDINGS: None. IMPRESSION: No acute intracranial abnormalities. No significant findings to account for the clinical presentation. No significant interval change compared to the prior examination(s).
[2017-12-17] MEDS: Dextrose 5%/0.45% NS 1,000 ML IV SCH (16:36)
--- NOTE | 2017-12-18 00:19 | CON ---
DATE: 12/17/2017 HISTORY OF PRESENT ILLNESS: This is a 72-year-old male with a past medical history of lung cancer and he COPD, chronic anemia, anxiety, hypertension and called to evaluate the patient for change in mental status. Then, patient also has a right tibial pathological fracture, sacral decubitus ulcer and patient was admitted with failure to thrive and patient has a poor food intake. The patient also has both feet swollen and called to evaluate the patient. PAST MEDICAL HISTORY: Metastatic lung CA; right tibial fracture, status post ORIF; hypertension; COPD; anemia; anxiety and constipation. SOCIAL HISTORY: Does not smoke. Does not drink. HOME MEDICATIONS: Lopressor. ALLERGY: TO ASPIRIN. PHYSICAL EXAMINATION: VITAL SIGNS: Blood pressure 112/50. HEENT: Normocephalic, atraumatic. NECK: Supple. NEUROLOGIC: Awake, oriented to self. Follows one step simple commands. Cranial nerves II to XII are tested. Pupils reactive. EOM intact. Visual field full. No fascial asymmetry. Tongue midline. Spontaneous movement of all the extremities noted, limited and swelling of both the feet was seen and cerebellar gait was deferred. IMPRESSION: This is a 72-year-old male with a past medical history of lung cancer and chronic obstructive pulmonary disease, pathological right tibial fracture and sacral decubitus and I called to evaluate him for altered mental state and we will do the CAT scan of the head without contrast and workup in progress. Continue present management. We will follow up and patient is also being evaluated for percutaneous endoscopic gastrostomy placement because he is not eating well. We will follow up. Nestor Britt MD
[2017-12-18] MEDS: Vancomycin 1gm in NS 250ml 1 GM/250 ML BAG IVPB SCH ×2 (01:16→16:24)
[2017-12-18] MEDS: Metoprolol 1 mg/ml Inj IVP SCH ×4 (01:16→17:28)
[2017-12-18 06:07] LABS: EOS # 0.1 (0.0-0.7); EOS % 0.8 % (1.5-5.0); GRAN # 11.18 (1.4-6.5); GRAN % 85.4 % (50.0-68.0); HEMOGLOBIN 8.7 g/dL (14.0-18.0); LYMPH % 7.8 % (22.0-35.0); MEAN CELL VOLUME 92.6 fl (80.0-105.0); MEAN CORPUSCULAR HEMOGLOBIN 29.3 pg (25.0-35.0); MEAN CORPUSCULAR HGB CONC 31.6 g/dl (31.0-37.0); MONO # 0.8 (0.1-0.6); RBC 2.97 10^6/uL (3.5-6.1); RED CELL DISTRIBUTION WIDTH 16.9 % (11.5-14.5); WHITE BLOOD COUNT 13.1 10^3/ul (4.5-11.0)
[2017-12-18] MEDS: Meropenem IV 1 gm in NS 50 ML IVPB SCH ×3 (06:11→22:35)
[2017-12-18 06:12] LABS: ALB/GLOB RATIO 0.8 (1.1-1.8); ALBUMIN 2.2 g/dL (3.0-4.8); ALT/SGPT 26 U/L (7-56); AST/SGOT 30 U/L (17-59); BLOOD UREA NITROGEN 6 mg/dL (7-21); CALCIUM 7.3 mg/dL (8.4-10.5); GFR AFRICAN-AMERICAN > 60; GFR NON-AFRICAN AMERICAN > 60
[2017-12-18] MEDS: Levalbuterol 0.63 MG/3 ML Inhal Soln UD IH PRN ×2 (06:30→11:54)
--- NOTE | 2017-12-18 06:52 | CP.PCM.PN ---
Subjective - Date & Time of Evaluation Date of Evaluation: 12/18/17 Time of Evaluation: 06:05 - Subjective Subjective: Awake, alert, on VM 40%. mild shortness of breath Reason for consultation: Cardiac evaluation for SVT, history of non-small cell lung cancer with bone metastasis, low potassium level Seen and examined by me and Dr. Pro Objective - Vital Signs/Intake and Output Vital Signs (last 24 hours): Temp Pulse Resp BP Pulse Ox 98.9 F 99 H 20 123/62 91 L 12/18/17 00:00 12/18/17 06:11 12/18/17 00:00 12/18/17 06:11 12/18/17 00:00 Intake and Output: 12/17/17 12/18/17 18:59 06:59 Output Total 400 Balance -400 - Medications Medications: Current Medications Acetaminophen (Tylenol 325mg Tab) 650 mg PO Q6H PRN PRN Reason: PAIN/FEVER Last Admin: 12/13/17 08:28 Dose: 650 mg Acetylcysteine (Acetylcysteine 20%) 3 ml IH [id number] [facility] Last Admin: 12/17/17 19:57 Dose: Not Given Alprazolam (Xanax) 0.25 mg PO Q8H [facility] PRN Reason: Protocol Stop: 12/19/17 17:05 Last Admin: 12/18/17 04:00 Dose: Not Given Arformoterol Tartrate (Brovana) 15 mcg IH [id number] [facility] Last Admin: 12/17/17 19:57 Dose: Not Given Atorvastatin Calcium (Lipitor) 10 mg PO DIN [facility] Last Admin: 12/17/17 17:13 Dose: Not Given Calcium Carbonate (Caltrate) 600 mg PO BID [facility] Last Admin: 12/17/17 17:13 Dose: Not Given Collagenase (Santyl) 1 gm TOP DAILY [facility] Last Admin: 12/17/17 10:45 Dose: 1 applic Al Hydrox/Mg Hydrox/Simethicone 30 ml/Diphenhydramine HCl 75 mg/Lidocaine 30 ml 0 ml PO Q2H PRN PRN Reason: MOUTH/THROAT PAIN Docusate Sodium (Colace) 200 mg PO BID [facility] Last Admin: 12/17/17 17:13 Dose: Not Given Enoxaparin Sodium (Lovenox) 30 mg SC DAILY [facility] PRN Reason: Protocol Last Admin: 12/17/17 10:53 Dose: 30 mg Folic Acid (Folic Acid) 1 mg PO BID [facility] Last Admin: 12/17/17 17:17 Dose: Not Given Dextrose/Sodium Chloride (Dextrose 5%/0.45% Ns 1000 Ml) 1,000 mls @ 85 mls/hr IV .[id number] [facility] Last Admin: 12/17/17 16:36 Dose: 85 mls/hr Meropenem (Merrem Iv 1 Gm Premix) 50 mls @ 100 mls/hr IVPB Q8 [facility] PRN Reason: Protocol Stop: 12/21/17 14:01 Last Admin: 12/18/17 06:11 Dose: 100 mls/hr Vancomycin HCl (Vancomycin 1gm) 1 gm in 250 mls @ 167 mls/hr IVPB Q12H [facility] PRN Reason: Protocol Stop: 12/21/17 13:46 Last Admin: 12/18/17 01:16 Dose: 167 mls/hr Lactic Acid (Lac-Hydrin 12% Cream (140 G)) 1 ea TOP DAILY [facility] Last Admin: 12/17/17 10:56 Dose: 1 appl Levalbuterol HCl (Xopenex) 0.63 mg IH [id number] PRN PRN Reason: Shortness of Breath Last Admin: 12/18/17 06:30 Dose: 0.63 mg Lidocaine (Lidocaine 5%) 0 gm TOP TID [facility] Last Admin: 12/17/17 17:13 Dose: 1 applic Megestrol Acetate (Megace) 40 mg PO DAILY [facility] Last Admin: 12/17/17 10:37 Dose: Not Given Metoprolol Tartrate (Lopressor) 5 mg IVP Q6 [facility] Last Admin: 12/18/17 06:11 Dose: 5 mg Mirtazapine (Remeron) 15 mg PO HS [facility] Last Admin: 12/17/17 21:08 Dose: Not Given Non-Formulary Medication (Dimethicone [Proshield Plus Skin Protectant]) 1 applic TOP DAILY [facility] Last Admin: 12/17/17 10:37 Dose: Not Given Ondansetron HCl (Zofran Tab) 4 mg PO Q6 PRN PRN Reason: Nausea/Vomiting Last Admin: 12/15/17 15:18 Dose: 4 mg Oxycodone HCl (Oxycodone Immediate Release Tab) 5 mg PO Q6H PRN PRN Reason: Pain, severe (8-10) Last Admin: 12/16/17 01:45 Dose: 5 mg Pantoprazole Sodium (Protonix Ec Tab) 40 mg PO 0600 [facility] Last Admin: 12/17/17 05:39 Dose: Not Given Polyethylene Glycol (Miralax) 17 gm PO BID [facility] Last Admin: 12/17/17 17:16 Dose: Not Given Potassium Phos/Sodium Phos (Neutra-Phos) 1 pkt PO TID [facility] Last Admin: 12/17/17 17:16 Dose: Not Given Saliva Substitute (Saliva Substitute) 0 ml PO WM [facility] Last Admin: 12/17/17 17:12 Dose: 1 ml Vitamin A (Vitamin A & D Oint Ud Foilpak) 1 ea TOP TID [facility] Last Admin: 12/17/17 17:12 Dose: 1 ea Zolpidem Tartrate (Ambien) 5 mg PO HS PRN; Protocol PRN Reason: Insomnia Last Admin: 12/15/17 22:29 Dose: 5 mg - Labs Labs: 12/18/17 05:45 12/18/17 05:45 - Eye Exam Eye Exam: Normal appearance - ENT Exam ENT Exam: Mucous Membranes Dry - Respiratory Exam Respiratory Exam: Decreased Breath Sounds, Rhonchi, NORMAL BREATHING PATTERN - Cardiovascular Exam Cardiovascular Exam: +S1, +S2 Additional comments: right chest port/accessed - GI/Abdominal Exam GI & Abdominal Exam: Soft, Normal Bowel Sounds - Extremities Exam Additional comments: 2+edema - Neurological Exam Neurological Exam: Alert, Awake Additional comments: periods of confusion - Psychiatric Exam Psychiatric exam: Normal Affect - Skin Skin Exam: Dry, Warm Additional comments: sacral ulcer Assessment and Plan - Assessment and Plan (Free Text) Assessment: A 72 year old male who came in to the ER due to failure to thrive and lightheadedness. Patient has history of smoking,non-small cell lung cancer with bone mets, right tibial pathological fracture,11/14/17 had right tibial nail and catrachito placement, sacral ulcer stage 4. low WBC. today, had episode of SVT. Electrolyte related Potassium 2.8. 12 lead EKG normal. 12/13/17- ECHO LVEF 50%, moderately dilated RV,moderately reduced systolic function, moderate pulmonary hypertension. Blood culture positive for negative coagulase staphylococcus.ID on consult. IV antibiotics. Plan: Poor/refused oral intake Continue IV fluids for hydration Possible PEG tube if patient agrees GI on consult No more episodes of SVT, telemetry NSR K level today 3.4, replenish with IV potassium Blood pressure stable Continue IV antibiotics per ID. Continue current treatment Continue current medications Will follow up Plan and treatment discussed with Dr. Pro
[2017-12-18] MEDS: Acetylcysteine 20% Inhal Soln (4ml) IH SCH ×2 (07:38→19:51)
[2017-12-18] MEDS: Arformoterol 15 mcg/2 ml Inh Sol IH SCH ×2 (07:38→19:51)
[2017-12-18] MEDS: Saliva Substitute 44.3 ML PO SCH ×3 (08:10→17:19)
--- NOTE | 2017-12-18 08:43 | PN ---
DATE: 12/17/2017 ONCOLOGY PROGRESS NOTE LOCATION: Patient is in room 363, bed 2. PROBLEM: This is a 72-year-old male with stage IV metastatic non-small cell lung carcinoma with documented lung, bone and liver metastasis, status post Aredia, currently in the hospital because of failure to thrive, sacral decubitus, bacteremia with Staphylococcus epidermidis infection, on IV antibiotics. Repeat cultures have been negative. Sacral decubitus, which is improving slowly. Also, currently getting radiation to the right tibial fracture. He is currently having increasing problems with difficulty in swallowing and possible aspiration. The patient is on aspiration precautions and may benefit from placement of a PEG as he wants still to be treated for his underlying malignancy after detailed discussions with the patient in front of his family and his daughter. The patient is currently on IV antibiotics and has been kept n.p.o. while assessing him for placement of a PEG tube. SUBJECTIVE: The patient is lying in bed, head at 45 degrees. Overnight events noted. Refused a nasogastric tube. Oxygen requirement is increased. Currently on Ventimask. The patient is awake, alert and oriented. Daughter is at bedside. The patient after a detailed discussion today has agreed for G-tube tomorrow. The patient does have a cough, unable to clear pulmonary secretions, is holding back on the food in his mouth and has been n.p.o. since last night. No hemoptysis. No hematemesis. No hematuria. No diarrhea. OBJECTIVE: GENERAL: The patient is in no acute distress. VITAL SIGNS: Stable. T-max is 98.4, heart rate is 75, respirations 20, blood pressure 112/50, pulse ox is 90% on a Venturi mask. HEENT: Head is normocephalic, atraumatic. Conjunctivae pale. Sclerae are anicteric. Pupils are equally reactive to light and accommodation. Examination of the congregation revealed temporal muscle wasting. Examination of the oropharynx reveals moist mucous membranes. No ulcerations or thrush noted. NECK: Supple. There is no adenopathy. No jugular venous distention noted. LUNGS: There is scattered wheezing and rhonchi bilaterally. HEART: Examination of the heart reveals PMI to be in the fifth intercostal space inside the midclavicular line. S1 and S2 are normal. No gallop or murmur is heard. ABDOMEN: Soft, nontender. Liver and spleen are not palpable. No other masses are felt. EXTREMITIES: Reveal no cyanosis, clubbing or edema. NEUROLOGIC: Reveals higher functions to be normal. No focal deficits are noted. SKIN: Skin turgor is decreased. No skin lesions are noted. GENITOURINARY: Deferred. RECTAL: Deferred. MEDICATIONS: Reviewed. He is on Mucomyst inhaled twice a day, Ambien 5 mg at bedtime p.r.n., Brovana inhaled twice a day, calcium carbonate twice a day, Colace 200 mg b.i.d. He is on IV fluid at 85 mL an hour of D5 half normal saline. He is also receiving folic acid 1 mg twice a day, Lipitor 10 mg daily, metoprolol 5 mg every 6 hours, Lovenox 30 mg daily, also on Megace 40 mg daily, meropenem 1 g IV every 8 hours, MiraLax 17 g twice a day, Neutra Phos pack one pack daily, OxyContin immediate release 5 mg every 6 hours p.r.n., Protonix 40 mg daily, Remeron 15 mg at bedtime, Saliva Substitute p.r.n. basis. He is on local therapy with Optifoam dressing for his sacral decubitus along with topical creams. He is on Tylenol p.r.n. He is on vancomycin 1 g IV every 12 hours. He is also on vitamin A and D ointment topically, Xanax 0.25 mg every 8 hours, Xopenex inhaled every 6 hours, Zofran p.r.n. LABORATORY DATA: Reveals hemoglobin of 8.8, hematocrit 28.2, white count is 12.5, platelet count is 23,000. ABG shows a pH of 7.48, pCO2 of 46, pO2 of 54. Sodium is 134, K is 3.2, chloride is 94, bicarbonate is 94, BUN is 6, , creatinine 0.3, glucose is 107, calcium 7.4, AST is 32, ALT is 24, alkaline phosphatase is 96, albumin is 2.1. Repeat cultures have shown no growth. ASSESSMENT, NOTES AND PLAN: The patient has metastatic stage IV non-small cell carcinoma of the lung bone and the lung and the liver, chronic obstructive pulmonary disease, left upper lobe atelectasis secondary to tumor, malnutrition, decubitus ulcer, oropharyngeal dysphagia, cannot clear secretions, became hypoxemic. The patient has been n.p.o. since yesterday. The patient had a long discussion with me and also Dr. Dent. Finally, agreed for a gastrostomy tube placement, which will be done tomorrow. Option of supportive care and hospice were also given to the patient. At present, the patient is choosing to go ahead with aggressive treatment, which includes gastrostomy placement. The patient is going to be put on the for placement of a percutaneous endoscopic gastrostomy tube. We discussed already with Dr. Levine as of yesterday. The patient's FiO2 is going to be titrated to keep it above 90%. Continue inhaled bronchodilators, gastric prophylaxis and deep venous thrombosis prophylaxis. Routine post exam instructions have been given to the patient. Time spent with the patient greater than 80 minutes correlating all the information and trying to answer all the questions that the family had. Please make a note, this is a medically necessary and appropriate visit for this patient with multiple comorbid medical issues. Artem Wolf MD
--- NOTE | 2017-12-18 08:57 | CP.PCM.PN ---
<Terrie Gordon - Last Filed: 12/18/17 10:14> Subjective - Date & Time of Evaluation Date of Evaluation: 12/18/17 Time of Evaluation: 07:35 - Subjective Subjective: Terrie Gordon DO, PGY-2: GI Progress Note for Dr. Levine Patient was seen and examined at bedside. He is NPO, on a Venti Mask, and his Daughter Eli was at bedside. We discussed PEG tube placement and also mentioned that Anesthesia would also come to evaluate the patient and assess his risk for the procedure as well as his risk for aspiration. Patient had no complaints. The daughter gave her phone number in case the need for contact. Otherwise, chart review indicates no adverse events overnight and the patient remains without eating. We plan tentatively for Percutaneous Endoscopic Gastrotomy tube placement tomorrow, 12/19/17. Consent was obtained and witnessed by Nurse Langston. Objective - Vital Signs/Intake and Output Vital Signs (last 24 hours): Temp Pulse Resp BP Pulse Ox 98 F 94 H 20 123/62 92 L 12/18/17 07:59 12/18/17 07:59 12/18/17 07:59 12/18/17 07:59 12/18/17 07:59 Intake and Output: 12/18/17 12/18/17 06:59 18:59 Intake Total 0 Output Total 900 Balance -900 - Medications Medications: Current Medications Acetaminophen (Tylenol 325mg Tab) 650 mg PO Q6H PRN PRN Reason: PAIN/FEVER Last Admin: 12/13/17 08:28 Dose: 650 mg Acetylcysteine (Acetylcysteine 20%) 3 ml IH [id number] [facility] Last Admin: 12/18/17 07:38 Dose: Not Given Alprazolam (Xanax) 0.25 mg PO Q8H [facility] PRN Reason: Protocol Stop: 12/19/17 17:05 Last Admin: 12/18/17 04:00 Dose: Not Given Arformoterol Tartrate (Brovana) 15 mcg IH [id number] [facility] Last Admin: 12/18/17 07:38 Dose: Not Given Atorvastatin Calcium (Lipitor) 10 mg PO DIN [facility] Last Admin: 12/17/17 17:13 Dose: Not Given Calcium Carbonate (Caltrate) 600 mg PO BID [facility] Last Admin: 12/17/17 17:13 Dose: Not Given Collagenase (Santyl) 1 gm TOP DAILY [facility] Last Admin: 12/17/17 10:45 Dose: 1 applic Al Hydrox/Mg Hydrox/Simethicone 30 ml/Diphenhydramine HCl 75 mg/Lidocaine 30 ml 0 ml PO Q2H PRN PRN Reason: MOUTH/THROAT PAIN Docusate Sodium (Colace) 200 mg PO BID [facility] Last Admin: 12/17/17 17:13 Dose: Not Given Enoxaparin Sodium (Lovenox) 30 mg SC DAILY [facility] PRN Reason: Protocol Last Admin: 12/17/17 10:53 Dose: 30 mg Folic Acid (Folic Acid) 1 mg PO BID [facility] Last Admin: 12/17/17 17:17 Dose: Not Given Dextrose/Sodium Chloride (Dextrose 5%/0.45% Ns 1000 Ml) 1,000 mls @ 85 mls/hr IV .[id number] [facility] Last Admin: 12/17/17 16:36 Dose: 85 mls/hr Meropenem (Merrem Iv 1 Gm Premix) 50 mls @ 100 mls/hr IVPB Q8 [facility] PRN Reason: Protocol Stop: 12/21/17 14:01 Last Admin: 12/18/17 06:11 Dose: 100 mls/hr Vancomycin HCl (Vancomycin 1gm) 1 gm in 250 mls @ 167 mls/hr IVPB Q12H [facility] PRN Reason: Protocol Stop: 12/21/17 13:46 Last Admin: 12/18/17 01:16 Dose: 167 mls/hr Potassium Chloride (Potassium Chloride 20 Meq/100 Ml) 20 meq in 100 mls @ 50 mls/hr IVPB Q2H [facility] Stop: 12/18/17 10:59 Lactic Acid (Lac-Hydrin 12% Cream (140 G)) 1 ea TOP DAILY [facility] Last Admin: 12/17/17 10:56 Dose: 1 appl Levalbuterol HCl (Xopenex) 0.63 mg IH [id number] PRN PRN Reason: Shortness of Breath Last Admin: 12/18/17 06:30 Dose: 0.63 mg Lidocaine (Lidocaine 5%) 0 gm TOP TID [facility] Last Admin: 12/17/17 17:13 Dose: 1 applic Megestrol Acetate (Megace) 40 mg PO DAILY [facility] Last Admin: 07/29/18 10:37 Dose: Not Given Metoprolol Tartrate (Lopressor) 5 mg IVP Q6 [facility] Last Admin: 12/18/17 06:11 Dose: 5 mg Mirtazapine (Remeron) 15 mg PO HS [facility] Last Admin: 12/17/17 21:08 Dose: Not Given Non-Formulary Medication (Dimethicone [Proshield Plus Skin Protectant]) 1 applic TOP DAILY [facility] Last Admin: 12/17/17 10:37 Dose: Not Given Ondansetron HCl (Zofran Tab) 4 mg PO Q6 PRN PRN Reason: Nausea/Vomiting Last Admin: 12/15/17 15:18 Dose: 4 mg Oxycodone HCl (Oxycodone Immediate Release Tab) 5 mg PO Q6H PRN PRN Reason: Pain, severe (8-10) Last Admin: 12/16/17 01:45 Dose: 5 mg Pantoprazole Sodium (Protonix Ec Tab) 40 mg PO 0600 [facility] Last Admin: 12/17/17 05:39 Dose: Not Given Polyethylene Glycol (Miralax) 17 gm PO BID [facility] Last Admin: 12/17/17 17:16 Dose: Not Given Potassium Phos/Sodium Phos (Neutra-Phos) 1 pkt PO TID [facility] Last Admin: 12/17/17 17:16 Dose: Not Given Saliva Substitute (Saliva Substitute) 0 ml PO WM [facility] Last Admin: 12/17/17 17:12 Dose: 1 ml Vitamin A (Vitamin A & D Oint Ud Foilpak) 1 ea TOP TID [facility] Last Admin: 12/17/17 17:12 Dose: 1 ea Zolpidem Tartrate (Ambien) 5 mg PO HS PRN; Protocol PRN Reason: Insomnia Last Admin: 12/15/17 22:29 Dose: 5 mg - Labs Labs: 12/18/17 05:45 12/18/17 05:45 - Constitutional Appears: Non-toxic, No Acute Distress - Head Exam Head Exam: ATRAUMATIC, NORMOCEPHALIC - Eye Exam Eye Exam: EOMI, Normal appearance - ENT Exam ENT Exam: Mucous Membranes Dry - Neck Exam Neck Exam: Normal Inspection - Respiratory Exam Respiratory Exam: Wheezes - Cardiovascular Exam Cardiovascular Exam: RRR, +S1, +S2 - GI/Abdominal Exam GI & Abdominal Exam: Soft. absent: Tenderness, Rebound - Extremities Exam Extremities Exam: Normal Inspection. absent: Calf Tenderness - Neurological Exam Neurological Exam: Alert, Awake - Psychiatric Exam Psychiatric exam: Normal Affect, Normal Mood - Skin Skin Exam: Dry, Intact, Normal Color, Warm Assessment and Plan - Assessment and Plan (Free Text) Assessment: Mr. Monson is a 72 year old male with PMH of stage IV NSCLC (with bony metastases, diagnosed last month, treated with palliative radiation by Dr. Vega) , COPD, R tibial pathological fx, sacral decubitus ulcer stage IV who was admitted from [facility] for failure to thrive and dysphagia. Failure to thrive risk of aspiration Dysphagia NSCLC Plan: - PEG tube placement tomorrow for failure to thrive and malnourish - will obtain PT, INR, activated partial thromboplastin time, cbc, cmp, magnesium, and phosphorus for tomorrows labs in preparation for the procedure - Informed consent obtained and witnessed by Nurse Langston - aspiration risk - care as per primary team - continue to monitor - continue IV fluids - pain management as per primary team D/W Dr. Levine <Sam Levine V - Last Filed: 12/18/17 21:47> Objective - Vital Signs/Intake and Output Vital Signs (last 24 hours): Temp Pulse Resp BP Pulse Ox 97.8 F 95 H 20 127/75 94 L 12/18/17 17:16 12/18/17 18:00 12/18/17 17:16 12/18/17 17:28 12/18/17 17:16 - Medications Medications: Current Medications Acetaminophen (Tylenol 325mg Tab) 650 mg PO Q6H PRN PRN Reason: PAIN/FEVER Last Admin: 12/13/17 08:28 Dose: 650 mg Acetylcysteine (Acetylcysteine 20%) 3 ml IH [id number] [facility] Last Admin: 12/18/17 19:51 Dose: 3 ml Alprazolam (Xanax) 0.25 mg PO Q8H [facility] PRN Reason: Protocol Stop: 12/19/17 17:05 Last Admin: 12/18/17 17:20 Dose: Not Given Arformoterol Tartrate (Brovana) 15 mcg IH [id number] [facility] Last Admin: 12/18/17 19:51 Dose: 15 mcg Atorvastatin Calcium (Lipitor) 10 mg PO DIN [facility] Last Admin: 12/18/17 17:19 Dose: Not Given Calcium Carbonate (Caltrate) 600 mg PO BID [facility] Last Admin: 12/18/17 17:18 Dose: Not Given Collagenase (Santyl) 1 gm TOP DAILY [facility] Last Admin: 12/18/17 09:29 Dose: 1 applic Al Hydrox/Mg Hydrox/Simethicone 30 ml/Diphenhydramine HCl 75 mg/Lidocaine 30 ml 0 ml PO Q2H PRN PRN Reason: MOUTH/THROAT PAIN Docusate Sodium (Colace) 200 mg PO BID [facility] Last Admin: 12/18/17 17:18 Dose: Not Given Enoxaparin Sodium (Lovenox) 30 mg SC DAILY [facility] PRN Reason: Protocol Last Admin: 12/17/17 10:53 Dose: 30 mg Folic Acid (Folic Acid) 1 mg PO BID [facility] Last Admin: 12/18/17 17:19 Dose: Not Given Dextrose/Sodium Chloride (Dextrose 5%/0.45% Ns 1000 Ml) 1,000 mls @ 85 mls/hr IV .[id number] [facility] Last Admin: 12/17/17 16:36 Dose: 85 mls/hr Meropenem (Merrem Iv 1 Gm Premix) 50 mls @ 100 mls/hr IVPB Q8 [facility] PRN Reason: Protocol Stop: 12/21/17 14:01 Last Admin: 12/18/17 16:24 Dose: 100 mls/hr Vancomycin HCl (Vancomycin 1gm) 1 gm in 250 mls @ 167 mls/hr IVPB Q12H [facility] PRN Reason: Protocol Stop: 12/21/17 13:46 Last Admin: 12/18/17 16:24 Dose: 167 mls/hr Lactic Acid (Lac-Hydrin 12% Cream (140 G)) 1 ea TOP DAILY [facility] Last Admin: 12/18/17 09:34 Dose: Not Given Levalbuterol HCl (Xopenex) 0.63 mg IH [id number] PRN PRN Reason: Shortness of Breath Last Admin: 12/18/17 11:54 Dose: 0.63 mg Lidocaine (Lidocaine 5%) 0 gm TOP TID [facility] Last Admin: 12/18/17 17:19 Dose: Not Given Megestrol Acetate (Megace) 40 mg PO DAILY [facility] Last Admin: 12/18/17 09:28 Dose: Not Given Metoprolol Tartrate (Lopressor) 5 mg IVP Q6 [facility] Last Admin: 12/18/17 17:28 Dose: 5 mg Mirtazapine (Remeron) 15 mg PO HS [facility] Last Admin: 12/18/17 21:24 Dose: Not Given Non-Formulary Medication (Dimethicone [Proshield Plus Skin Protectant]) 1 applic TOP DAILY [facility] Last Admin: 12/18/17 09:27 Dose: Not Given Ondansetron HCl (Zofran Tab) 4 mg PO Q6 PRN PRN Reason: Nausea/Vomiting Last Admin: 12/15/17 15:18 Dose: 4 mg Oxycodone HCl (Oxycodone Immediate Release Tab) 5 mg PO Q6H PRN PRN Reason: Pain, severe (8-10) Last Admin: 12/16/17 01:45 Dose: 5 mg Pantoprazole Sodium (Protonix Ec Tab) 40 mg PO 0600 [facility] Last Admin: 12/17/17 05:39 Dose: Not Given Polyethylene Glycol (Miralax) 17 gm PO BID [facility] Last Admin: 12/18/17 17:19 Dose: Not Given Potassium Phos/Sodium Phos (Neutra-Phos) 1 pkt PO TID [facility] Last Admin: 12/18/17 17:19 Dose: Not Given Saliva Substitute (Saliva Substitute) 0 ml PO WM [facility] Last Admin: 12/18/17 17:19 Dose: Not Given Vitamin A (Vitamin A & D Oint Ud Foilpak) 1 ea TOP TID [facility] Last Admin: 12/18/17 17:28 Dose: 1 ea Zolpidem Tartrate (Ambien) 5 mg PO HS PRN; Protocol PRN Reason: Insomnia Last Admin: 12/15/17 22:29 Dose: 5 mg - Labs Labs: 12/18/17 05:45 12/18/17 05:45 PT 24.0 SECONDS (9.4-12.5) H 12/18/17 09:00 INR 2.06 (0.93-1.08) H 12/18/17 09:00 APTT 32.7 Seconds (25.1-36.5) 12/18/17 09:00 Attending/Attestation - Attestation I have personally seen and examined this patient.: Yes I have fully participated in the care of the patient.: Yes I have reviewed all pertinent clinical information, including history, physical exam and plan: Yes Notes (Text): This is an addendum to GI consult report dictated by the Manufacturing Finance Manager.The patient was seen an that we need to change it here d examined earlier. Medical records, lab studies, imagings were reviewed. Last 24 hours events reviewed. Agreed with the above treatment plan as outlined in Manufacturing Finance Manager 's notes the with the addition of the following patient's daughter was at bedside at the time of examination in the a.m. Patient is presently agree for PEG tube Relctant to have NG tube now On examination abdomen soft no tenderness Request PT/INR today and correct coagulopathy patient is scheduled for PEG tube placement tomorrow. 12/18/17 21:42 12/18/17 21:46
[2017-12-18 09:21] LABS: INR 2.06 (0.93-1.08)
[2017-12-18] MEDS: DIMETHICONE TOP SCH (09:27)
[2017-12-18] MEDS: POLYETHYLENE GLYCOL 3350 17 GM/Dose PACKET PO SCH ×2 (09:28→17:19)
[2017-12-18] MEDS: Potassium & Sodium Phosphate PO SCH ×3 (09:28→17:19)
[2017-12-18] MEDS: Collagenase 250 Units/gm Ointment(30 gm) TOP SCH (09:29)
[2017-12-18] MEDS: Ammonium Lactate 12% Cream (140 g) TOP SCH (09:34)
[2017-12-18] MEDS: Vitamins A & D Oint UD Foilpak TOP SCH ×3 (09:34→17:28)
[2017-12-18] MEDS: Lidocaine 5% Oint(35 gm) TOP SCH ×3 (09:34→17:19)
--- NOTE | 2017-12-18 10:55 | CP.PCM.PN ---
<Varun Thompson - Last Filed: 12/18/17 10:51> Subjective - Date & Time of Evaluation Date of Evaluation: 12/18/17 Time of Evaluation: 10:59 - Subjective Subjective: Podiatry Progress Note for Dr. Caban 72 yo male, seen and evaluated at bedside for bilateral xerosis. Patient is accompanied by his daughter. She states that nurses have recently applied Amlactin cream to patient's b/l legs. Patient states that he is still in pain today but says that it is improving. Patient is AAO x 3 and NAD. He denies any other pedal complaints at this time. Denies N/V/F/SOB/CP/C. Multipodus boots noted to not be in place at this time Objective - Vital Signs/Intake and Output Vital Signs (last 24 hours): Temp Pulse Resp BP Pulse Ox 98 F 94 H 20 123/62 92 L 12/18/17 07:59 12/18/17 07:59 12/18/17 07:59 12/18/17 07:59 12/18/17 07:59 Intake and Output: 12/18/17 12/18/17 06:59 18:59 Intake Total 0 Output Total 900 Balance -900 - Medications Medications: Current Medications Acetaminophen (Tylenol 325mg Tab) 650 mg PO Q6H PRN PRN Reason: PAIN/FEVER Last Admin: 12/13/17 08:28 Dose: 650 mg Acetylcysteine (Acetylcysteine 20%) 3 ml IH [id number] [facility] Last Admin: 12/18/17 07:38 Dose: Not Given Alprazolam (Xanax) 0.25 mg PO Q8H [facility] PRN Reason: Protocol Stop: 12/19/17 17:05 Last Admin: 12/18/17 09:30 Dose: Not Given Arformoterol Tartrate (Brovana) 15 mcg IH [id number] [facility] Last Admin: 12/18/17 07:38 Dose: Not Given Atorvastatin Calcium (Lipitor) 10 mg PO DIN [facility] Last Admin: 12/17/17 17:13 Dose: Not Given Calcium Carbonate (Caltrate) 600 mg PO BID [facility] Last Admin: 12/18/17 09:26 Dose: Not Given Collagenase (Santyl) 1 gm TOP DAILY [facility] Last Admin: 12/18/17 09:29 Dose: 1 applic Al Hydrox/Mg Hydrox/Simethicone 30 ml/Diphenhydramine HCl 75 mg/Lidocaine 30 ml 0 ml PO Q2H PRN PRN Reason: MOUTH/THROAT PAIN Docusate Sodium (Colace) 200 mg PO BID [facility] Last Admin: 12/18/17 09:26 Dose: Not Given Enoxaparin Sodium (Lovenox) 30 mg SC DAILY [facility] PRN Reason: Protocol Last Admin: 12/17/17 10:53 Dose: 30 mg Folic Acid (Folic Acid) 1 mg PO BID [facility] Last Admin: 12/18/17 09:27 Dose: Not Given Dextrose/Sodium Chloride (Dextrose 5%/0.45% Ns 1000 Ml) 1,000 mls @ 85 mls/hr IV .[id number] [facility] Last Admin: 12/17/17 16:36 Dose: 85 mls/hr Meropenem (Merrem Iv 1 Gm Premix) 50 mls @ 100 mls/hr IVPB Q8 [facility] PRN Reason: Protocol Stop: 12/21/17 14:01 Last Admin: 12/18/17 06:11 Dose: 100 mls/hr Vancomycin HCl (Vancomycin 1gm) 1 gm in 250 mls @ 167 mls/hr IVPB Q12H [facility] PRN Reason: Protocol Stop: 12/21/17 13:46 Last Admin: 12/18/17 01:16 Dose: 167 mls/hr Potassium Chloride (Potassium Chloride 20 Meq/100 Ml) 20 meq in 100 mls @ 50 mls/hr IVPB Q2H [facility] Stop: 12/18/17 10:59 Last Admin: 12/18/17 09:28 Dose: 50 mls/hr Lactic Acid (Lac-Hydrin 12% Cream (140 G)) 1 ea TOP DAILY [facility] Last Admin: 12/18/17 09:34 Dose: Not Given Levalbuterol HCl (Xopenex) 0.63 mg IH [id number] PRN PRN Reason: Shortness of Breath Last Admin: 12/18/17 06:30 Dose: 0.63 mg Lidocaine (Lidocaine 5%) 0 gm TOP TID [facility] Last Admin: 12/18/17 09:34 Dose: 1 applic Megestrol Acetate (Megace) 40 mg PO DAILY [facility] Last Admin: 12/18/17 09:28 Dose: Not Given Metoprolol Tartrate (Lopressor) 5 mg IVP Q6 [facility] Last Admin: 12/18/17 06:11 Dose: 5 mg Mirtazapine (Remeron) 15 mg PO HS [facility] Last Admin: 12/17/17 21:08 Dose: Not Given Non-Formulary Medication (Dimethicone [Proshield Plus Skin Protectant]) 1 applic TOP DAILY [facility] Last Admin: 12/18/17 09:27 Dose: Not Given Ondansetron HCl (Zofran Tab) 4 mg PO Q6 PRN PRN Reason: Nausea/Vomiting Last Admin: 12/15/17 15:18 Dose: 4 mg Oxycodone HCl (Oxycodone Immediate Release Tab) 5 mg PO Q6H PRN PRN Reason: Pain, severe (8-10) Last Admin: 12/16/17 01:45 Dose: 5 mg Pantoprazole Sodium (Protonix Ec Tab) 40 mg PO 0600 [facility] Last Admin: 12/17/17 05:39 Dose: Not Given Polyethylene Glycol (Miralax) 17 gm PO BID [facility] Last Admin: 12/18/17 09:28 Dose: Not Given Potassium Phos/Sodium Phos (Neutra-Phos) 1 pkt PO TID [facility] Last Admin: 12/18/17 09:28 Dose: Not Given Saliva Substitute (Saliva Substitute) 0 ml PO WM [facility] Last Admin: 12/18/17 08:10 Dose: Not Given Vitamin A (Vitamin A & D Oint Ud Foilpak) 1 ea TOP TID [facility] Last Admin: 12/18/17 09:34 Dose: 1 ea Zolpidem Tartrate (Ambien) 5 mg PO HS PRN; Protocol PRN Reason: Insomnia Last Admin: 12/15/17 22:29 Dose: 5 mg - Labs Labs: 12/18/17 05:45 12/18/17 05:45 PT 24.0 SECONDS (9.4-12.5) H 12/18/17 09:00 INR 2.06 (0.93-1.08) H 12/18/17 09:00 APTT 32.7 Seconds (25.1-36.5) 12/18/17 09:00 - Constitutional Appears: Well, Non-toxic, No Acute Distress - Extremities Exam Additional comments: VASC: DP and PT 1/4 bilaterally, CFT < 3 seconds x 10 digits, temperature gradient warm to cool ORTHO: pain with palpation to right lower extremity (improving), MMT 4/5 bilaterally. NEURO: gross and protective sensation intact DERM: Hyperpigmented discoloration to right lower extremity, no erythema, no streaking, no open lesions, no clinical signs of infection. Evidence of Amlactin cream application b/l - Neurological Exam Neurological Exam: Alert, Awake, Oriented x3 - Psychiatric Exam Psychiatric exam: Normal Affect, Normal Mood Assessment and Plan - Assessment and Plan (Free Text) Assessment: 72 y.o male with xerosis to bilateral lower extremities Plan: Patient seen and evaluated Plan discussed with attending Dr. Caban Afebrile, WBC 13.1 Amlactin cream noted to have been recently applied by nursing Instructed patient and daughter to keep multipodus boots on at all times while patient in bed Patient stable from podiatric standpoint at this time Podiatry will sign off at this time Please reconsult in future as needed <Ameena Caban - Last Filed: 12/27/17 12:16> Objective - Vital Signs/Intake and Output Vital Signs (last 24 hours): Temp Pulse Resp BP Pulse Ox 98.9 F 71 18 118/54 L 65 L 12/25/17 22:00 12/26/17 18:20 12/26/17 18:20 12/26/17 18:00 12/26/17 18:20 - Labs Labs: 12/26/17 06:45 12/26/17 09:00 PT 13.6 SECONDS (9.4-12.5) H 12/20/17 07:11 INR 1.18 12/20/17 07:11 APTT 30.0 Seconds (25.1-36.5) 12/19/17 06:15 Attending/Attestation - Attestation I have personally seen and examined this patient.: Yes I have fully participated in the care of the patient.: Yes I have reviewed all pertinent clinical information, including history, physical exam and plan: Yes
[2017-12-18] MEDS ORDERED: MethylPREDNISolone 40 mg Vial IVP STA (11:58)
[2017-12-18] MEDS ORDERED: MethylPREDNISolone 40 mg Vial ONE (12:03)
--- NOTE | 2017-12-18 12:58 | RAD ---
Date of service: 12/18/2017 HISTORY: SOB COMPARISON: 12/11/2017 FINDINGS: LUNGS: Infiltrate at right lung base. Complete opacification of left lung PLEURA: No significant pleural effusion identified, no pneumothorax apparent. CARDIOVASCULAR: Normal. OSSEOUS STRUCTURES: No significant abnormalities. VISUALIZED UPPER ABDOMEN: Normal. OTHER FINDINGS: None. IMPRESSION: Infiltrate at right lung base. Complete opacification of left lung
--- NOTE | 2017-12-18 14:38 | PN ---
DATE: 12/18/2017 NEUROLOGY FOLLOWUP CHIEF COMPLAINT: Transient altered mental status. SUBJECTIVE: The patient is seen and examined at bedside. Case discussed with daughter as well as the patient at bedside. The patient is a 72-year-old man with history of stage IV metastatic non-small lung cell carcinoma with documented lung, bone and liver metastasis, status post chemotherapy. Came in to the hospital initially with failure to thrive, found to have sacral decubitus, bacteremia with Staphylococcus epidermidis infection, on IV antibiotics, status post oropharyngeal dysphagia and has transient episodes of hypoxemia due to oropharyngeal dysphagia and is going for possible PEG placement to get additional nutrition. Case is discussed with the patient as well as daughter. Oncology and Pulmonary notes reviewed and appreciated. The patient is moving all extremities equally, is very deconditioned and very generally weak. CAT scan of the head showed no acute intracranial abnormality. No evidence of any metastasis. PAST MEDICAL HISTORY: As above. SOCIAL HISTORY: No illicit drug use, smoking or EtOH abuse at this time. ALLERGIES: TO ASPIRIN. FAMILY HISTORY: Noncontributory. MEDICATIONS: Reviewed by nurses' reconciliation sheet. LABORATORY DATA: Sodium is 131, potassium 3.4, chloride 94, carbon dioxide 36, BUN of 6, creatinine 0.3, random glucose of 93. PHYSICAL EXAMINATION: VITAL SIGNS: Temperature 98.5, pulse rate of 94, blood pressure of 123/62, respiratory rate of 20, oxygen saturation 92% by Ventimask. GENERAL: The patient is sitting up in bed, in no acute distress, lethargic. HEENT: Atraumatic, normocephalic. PERRLA. Extraocular muscles intact. His examination of temples reveals temporal wasting. Examination of the oropharynx reveals moist mucous membranes. No ulceration or thrush. NECK: Supple. No JVD, no adenopathy noted. HEART: S1, S2. Normal rate and rhythm. No murmurs, rubs or gallops. ABDOMEN: Soft, nontender and nondistended. Bowel sounds are present. LUNGS: Decreased breath sounds bilaterally. Some scattered wheezing. EXTREMITIES: No clubbing. No cyanosis. Peripheral pulses 2+ felt bilaterally. NEUROLOGIC: The patient is alert and oriented to person, place, month and year. Speech is fluent without any errors. Cranial nerves II through XII intact. Motor exam: Moves all extremities equally, very deconditioned. No pronator drift seen. Sensory exam: Light touch, pinprick, proprioception and vibration are intact. DTRs are 2+ throughout. Coordination: [id number] intact. Gait is deferred for now. ASSESSMENT AND PLAN: This is a 72-year-old man with past medical history of metastatic stage IV non-small cell carcinoma of the lung, bone and liver; chronic obstructive pulmonary disease; left lower lobe atelectasis secondary tumor; malnutrition; decubitus ulcer; oropharyngeal dysphagia; cannot clear secretions and therefore becomes hypoxemic. Found to have transient altered mental status secondary to deconditioned state and failure to thrive in addition to oropharyngeal dysphagia causing transient hypoxemic episodes. At this time, I recommend, 1. To have a gastrostomy tube placement in order or get him some nutrition and to prevent further failure to thrive and worsened deconditioned state. 2. CAT scan of the head showed no acute intracranial abnormalities. Recommended thiamine 100 mg p.o. daily for improving neural cognition. 3. Monitor electrolytes and correct accordingly. 4. Advise physical therapy, occupational therapy and adequate nutrition daily. 5. Follow up with Oncology in regards to his present metastatic lung cancer and continue on current present medical management. Thank you for this follow up. Garth Britt MD
--- NOTE | 2017-12-18 15:53 | US ---
PROCEDURE: Right lower extremity venous US HISTORY: Leg pain and swelling. Evaluate for DVT. PHYSICIAN(S): Arthur Chandler M.D. TECHNIQUE: Duplex sonography and color-flow Doppler with graded compression were used to evaluate the deep venous system of the right lower extremity. FINDINGS: The visualized deep venous system of the right lower extremity is sonographically normal and compressible. Normal waveforms and augmentation are seen. There is no sonographic evidence for deep venous thrombosis in the visualized segments of the right lower extremity. IMPRESSION: 1. No sonographic evidence for deep venous thrombosis in the visualized segments of the right lower extremity.
--- NOTE | 2017-12-18 15:55 | CP.PCM.PCO ---
Physician Communication Note - Physician Communication Note Physician Communication Note: pt was at radiation, will f/u on pt tomorrow
--- NOTE | 2017-12-18 17:14 | CP.PCM.PN ---
Subjective - Date & Time of Evaluation Date of Evaluation: 12/18/17 Time of Evaluation: 12:40 - Subjective Subjective: No fevers, not in distress, for ultrasound today. Objective - Vital Signs/Intake and Output Vital Signs (last 24 hours): Temp Pulse Resp BP Pulse Ox 98 F 94 H 20 123/62 92 L 12/18/17 07:59 12/18/17 07:59 12/18/17 07:59 12/18/17 07:59 12/18/17 07:59 Intake and Output: 12/18/17 12/18/17 06:59 18:59 Intake Total 0 Output Total 900 Balance -900 - Medications Medications: Current Medications Acetaminophen (Tylenol 325mg Tab) 650 mg PO Q6H PRN PRN Reason: PAIN/FEVER Last Admin: 12/13/17 08:28 Dose: 650 mg Acetylcysteine (Acetylcysteine 20%) 3 ml IH [id number] [facility] Last Admin: 12/18/17 07:38 Dose: Not Given Alprazolam (Xanax) 0.25 mg PO Q8H [facility] PRN Reason: Protocol Stop: 12/19/17 17:05 Last Admin: 12/18/17 09:30 Dose: Not Given Arformoterol Tartrate (Brovana) 15 mcg IH [id number] [facility] Last Admin: 12/18/17 07:38 Dose: Not Given Atorvastatin Calcium (Lipitor) 10 mg PO DIN [facility] Last Admin: 12/17/17 17:13 Dose: Not Given Calcium Carbonate (Caltrate) 600 mg PO BID [facility] Last Admin: 12/18/17 09:26 Dose: Not Given Collagenase (Santyl) 1 gm TOP DAILY [facility] Last Admin: 12/18/17 09:29 Dose: 1 applic Al Hydrox/Mg Hydrox/Simethicone 30 ml/Diphenhydramine HCl 75 mg/Lidocaine 30 ml 0 ml PO Q2H PRN PRN Reason: MOUTH/THROAT PAIN Docusate Sodium (Colace) 200 mg PO BID [facility] Last Admin: 12/18/17 09:26 Dose: Not Given Enoxaparin Sodium (Lovenox) 30 mg SC DAILY [facility] PRN Reason: Protocol Last Admin: 12/17/17 10:53 Dose: 30 mg Folic Acid (Folic Acid) 1 mg PO BID [facility] Last Admin: 12/18/17 09:27 Dose: Not Given Dextrose/Sodium Chloride (Dextrose 5%/0.45% Ns 1000 Ml) 1,000 mls @ 85 mls/hr IV .[id number] [facility] Last Admin: 12/17/17 16:36 Dose: 85 mls/hr Meropenem (Merrem Iv 1 Gm Premix) 50 mls @ 100 mls/hr IVPB Q8 [facility] PRN Reason: Protocol Stop: 12/21/17 14:01 Last Admin: 12/18/17 06:11 Dose: 100 mls/hr Vancomycin HCl (Vancomycin 1gm) 1 gm in 250 mls @ 167 mls/hr IVPB Q12H [facility] PRN Reason: Protocol Stop: 12/21/17 13:46 Last Admin: 12/18/17 01:16 Dose: 167 mls/hr Potassium Chloride (Potassium Chloride 20 Meq/100 Ml) 20 meq in 100 mls @ 50 mls/hr IVPB Q2H [facility] Stop: 12/18/17 10:59 Last Admin: 12/18/17 09:28 Dose: 50 mls/hr Lactic Acid (Lac-Hydrin 12% Cream (140 G)) 1 ea TOP DAILY [facility] Last Admin: 12/18/17 09:34 Dose: Not Given Levalbuterol HCl (Xopenex) 0.63 mg IH [id number] PRN PRN Reason: Shortness of Breath Last Admin: 12/18/17 06:30 Dose: 0.63 mg Lidocaine (Lidocaine 5%) 0 gm TOP TID [facility] Last Admin: 12/18/17 09:34 Dose: 1 applic Megestrol Acetate (Megace) 40 mg PO DAILY [facility] Last Admin: 12/18/17 09:28 Dose: Not Given Metoprolol Tartrate (Lopressor) 5 mg IVP Q6 [facility] Last Admin: 12/18/17 06:11 Dose: 5 mg Mirtazapine (Remeron) 15 mg PO HS [facility] Last Admin: 12/17/17 21:08 Dose: Not Given Non-Formulary Medication (Dimethicone [Proshield Plus Skin Protectant]) 1 applic TOP DAILY [facility] Last Admin: 12/18/17 09:27 Dose: Not Given Ondansetron HCl (Zofran Tab) 4 mg PO Q6 PRN PRN Reason: Nausea/Vomiting Last Admin: 12/15/17 15:18 Dose: 4 mg Oxycodone HCl (Oxycodone Immediate Release Tab) 5 mg PO Q6H PRN PRN Reason: Pain, severe (8-10) Last Admin: 12/16/17 01:45 Dose: 5 mg Pantoprazole Sodium (Protonix Ec Tab) 40 mg PO 0600 [facility] Last Admin: 12/17/17 05:39 Dose: Not Given Polyethylene Glycol (Miralax) 17 gm PO BID [facility] Last Admin: 12/18/17 09:28 Dose: Not Given Potassium Phos/Sodium Phos (Neutra-Phos) 1 pkt PO TID [facility] Last Admin: 12/18/17 09:28 Dose: Not Given Saliva Substitute (Saliva Substitute) 0 ml PO WM [facility] Last Admin: 12/18/17 08:10 Dose: Not Given Vitamin A (Vitamin A & D Oint Ud Foilpak) 1 ea TOP TID [facility] Last Admin: 12/18/17 09:34 Dose: 1 ea Zolpidem Tartrate (Ambien) 5 mg PO HS PRN; Protocol PRN Reason: Insomnia Last Admin: 12/15/17 22:29 Dose: 5 mg - Labs Labs: 12/18/17 05:45 12/18/17 05:45 PT 24.0 SECONDS (9.4-12.5) H 12/18/17 09:00 INR 2.06 (0.93-1.08) H 12/18/17 09:00 APTT 32.7 Seconds (25.1-36.5) 12/18/17 09:00 - Constitutional Appears: Chronically Ill - Head Exam Head Exam: NORMAL INSPECTION - Neck Exam Neck Exam: absent: Meningismus - Respiratory Exam Respiratory Exam: Decreased Breath Sounds - Cardiovascular Exam Cardiovascular Exam: +S1, +S2 - GI/Abdominal Exam GI & Abdominal Exam: Soft. absent: Tenderness Assessment and Plan - Assessment and Plan (Free Text) Plan: Assessment Sepsis due to methicillin-resistant coagulase negative staph bacteremia, suspicious for port-a-cath as the source, with infected unstageable sacral ulcer (skin and skin structure infection) metastatic non-small cell lung cancer cachexia COPD chronic anemia anxiety dyslipidemia HTN Plan continue Vancomycin and Merrem (day 6) to complete 10-14 days repeat blood cx are negative reviewed 2D echo which does not show vegetations will continue monitor clinically overall prognosis is poor discussed with Dr. Wolf
[2017-12-18] MEDS ORDERED: Phytonadione 10 mg/ml Inj (Adult) SC ONE (20:26)
[2017-12-19] MEDS: Metoprolol 1 mg/ml Inj IVP SCH ×3 (00:47→11:37)
--- NOTE | 2017-12-19 01:23 | PN ---
DATE: 12/18/2017 PULMONARY PROGRESS NOTE SUBJECTIVE: He is lying in the bed. Overnight events were noted. While he was downstairs getting radiation therapy, ended up getting more shortness of breath. The patient has been n.p.o. because of oropharyngeal dysphagia and constant aspiration. The patient refused NG tube, but waiting for G-tube placement. He was placed on nonrebreather mask with improvement in the pulse ox. Unable to cough and clear pulmonary secretion. No hemoptysis. No hematemesis. No hematuria or diarrhea reported. OBJECTIVE: GENERAL: In mild to moderate distress. VITAL SIGNS: Temp is 98, heart rate is 95, respiratory rate is 20, blood pressure 127/75, pulse ox 94% on nonrebreather. HEENT: Moist mucous membrane. Crowded airway. NECK: Supple. No JVD. LUNGS: Have no breath sounds on the left lung. HEART: S1 and S2. ABDOMEN: Soft, nontender. No organomegaly. EXTREMITIES: No edema. NEUROLOGICAL: Awake and alert. Follows simple command. MEDICATIONS: He is on Mucomyst 3 mL inhaled twice a day, Ambien 5 mg at bedtime p.r.n., Brovana inhaled twice a day, calcium carbonate 600 mg twice a day, Colace 200 mg twice a day, folic acid 1 mg daily, lactic acid at affected area, Lidocaine 5% at affected area 3 times a day, Lipitor 10 mg daily, metoprolol tartrate 5 mg every 6 hours, Lovenox 30 mg subcu daily, Megace 40 mg daily, meropenem 1 g IV every 8 hours, MiraLax 17 g twice a day, Neutra-Phos three times a day, oxycodone immediate release 5 mg every 6 hours p.r.n., Protonix 40 mg daily, mirtazapine 15 mg at bedtime, Santyl 1 g daily, Tylenol p.r.n., vancomycin 1 g IV every 12 hours, vitamin A and D at affected area three times a day, Xanax 0.25 mg every 8 hours, Xopenex inhaled every 6 hours p.r.n., Zofran p.r.n. basis. LABORATORY DATA: Shows hemoglobin 8.7, hematocrit 27.5, WBC 13.1, platelet count is 192. INR 2.06, PTT 33. Sodium , potassium 3.4, chloride 94, bicarbonate 36, BUN 6, creatinine 0.3, calcium 7.3, AST 30, ALT 26, alk phos is 94, albumin is 2.2. Chest x-ray done today shows whiteout left lung. IMPRESSION AND PLAN: Metastatic lung cancer to the bones, vertebra; pathological fracture of the right tibia requiring surgery; chronic obstructive lung disease; left upper lobe atelectasis with tumor; malnutrition; decubitus ulcer; oropharyngeal dysphagia; n.p.o., waiting for gastrostomy tube placement. Aspirated with collapse of left lung. Bedside aggressive nasopharyngeal suction done by me, able to clear a lot of secretion with some improved airflow on the left lung. Spoke to nursing staff. We will follow as pulmonary toilet, chest therapy, inhaled bronchodilator, p.r.n. Motrin, nasal suction, followup chest x-ray in the morning. Gastric prophylaxis. Sequential compression device to lower extremity. The patient is n.p.o., on IV fluid, waiting for gastrostomy tube placement. We will continue aggressive pulmonary toilet. Thank you and we will follow with you. Judit Dent MD
[2017-12-19] MEDS: Vancomycin 1gm in NS 250ml 1 GM/250 ML BAG IVPB SCH (02:18)
[2017-12-19] MEDS: Pantoprazole 40 mg EC Tab PO SCH (05:44)
[2017-12-19] MEDS: MethylPREDNISolone 40 mg Vial IVP SCH ×2 (06:01→22:48)
[2017-12-19] MEDS: Meropenem IV 1 gm in NS 50 ML IVPB SCH ×2 (06:01→21:51)
--- NOTE | 2017-12-19 06:38 | CP.PCM.PN ---
Subjective - Date & Time of Evaluation Date of Evaluation: 12/19/17 Time of Evaluation: 06:05 - Subjective Subjective: Awake, alert, no distress Reason for consultation: Cardiac evaluation for SVT, history of non-small cell lung cancer with bone metastasis, low potassium level Seen and examined by me and Dr. Pro Objective - Vital Signs/Intake and Output Vital Signs (last 24 hours): Temp Pulse Resp BP Pulse Ox 97.8 F 90 20 135/73 94 L 12/18/17 17:16 12/19/17 06:01 12/18/17 17:16 12/19/17 06:01 12/18/17 17:16 Intake and Output: 12/18/17 12/19/17 18:59 06:59 Intake Total 0 Output Total 700 Balance -700 - Medications Medications: Current Medications Acetaminophen (Tylenol 325mg Tab) 650 mg PO Q6H PRN PRN Reason: PAIN/FEVER Last Admin: 12/13/17 08:28 Dose: 650 mg Acetylcysteine (Acetylcysteine 20%) 3 ml IH Q6 [facility] Alprazolam (Xanax) 0.25 mg PO Q8H [facility] PRN Reason: Protocol Stop: 12/19/17 17:05 Last Admin: 12/19/17 01:51 Dose: Not Given Arformoterol Tartrate (Brovana) 15 mcg IH [id number] [facility] Last Admin: 12/18/17 19:51 Dose: 15 mcg Atorvastatin Calcium (Lipitor) 10 mg PO DIN [facility] Last Admin: 12/18/17 17:19 Dose: Not Given Calcium Carbonate (Caltrate) 600 mg PO BID [facility] Last Admin: 12/18/17 17:18 Dose: Not Given Collagenase (Santyl) 1 gm TOP DAILY [facility] Last Admin: 12/18/17 09:29 Dose: 1 applic Al Hydrox/Mg Hydrox/Simethicone 30 ml/Diphenhydramine HCl 75 mg/Lidocaine 30 ml 0 ml PO Q2H PRN PRN Reason: MOUTH/THROAT PAIN Docusate Sodium (Colace) 200 mg PO BID [facility] Last Admin: 12/18/17 17:18 Dose: Not Given Enoxaparin Sodium (Lovenox) 30 mg SC DAILY [facility] PRN Reason: Protocol Last Admin: 12/17/17 10:53 Dose: 30 mg Folic Acid (Folic Acid) 1 mg PO BID [facility] Last Admin: 12/18/17 17:19 Dose: Not Given Dextrose/Sodium Chloride (Dextrose 5%/0.45% Ns 1000 Ml) 1,000 mls @ 85 mls/hr IV .[id number] [facility] Last Admin: 12/17/17 16:36 Dose: 85 mls/hr Meropenem (Merrem Iv 1 Gm Premix) 50 mls @ 100 mls/hr IVPB Q8 [facility] PRN Reason: Protocol Stop: 12/21/17 14:01 Last Admin: 12/19/17 06:01 Dose: 100 mls/hr Vancomycin HCl (Vancomycin 1gm) 1 gm in 250 mls @ 167 mls/hr IVPB Q12H [facility] PRN Reason: Protocol Stop: 12/21/17 13:46 Last Admin: 12/19/17 02:18 Dose: 167 mls/hr Lactic Acid (Lac-Hydrin 12% Cream (140 G)) 1 ea TOP DAILY [facility] Last Admin: 12/18/17 09:34 Dose: Not Given Levalbuterol HCl (Xopenex) 0.63 mg IH [id number] PRN PRN Reason: Shortness of Breath Last Admin: 12/18/17 11:54 Dose: 0.63 mg Lidocaine (Lidocaine 5%) 0 gm TOP TID [facility] Last Admin: 12/18/17 17:19 Dose: Not Given Megestrol Acetate (Megace) 40 mg PO DAILY [facility] Last Admin: 12/18/17 09:28 Dose: Not Given Methylprednisolone (Solu-Medrol) 40 mg IVP Q8 [facility] Last Admin: 12/19/17 06:01 Dose: 40 mg Metoprolol Tartrate (Lopressor) 5 mg IVP Q6 [facility] Last Admin: 12/19/17 06:01 Dose: 5 mg Mirtazapine (Remeron) 15 mg PO HS [facility] Last Admin: 12/18/17 21:24 Dose: Not Given Non-Formulary Medication (Dimethicone [Proshield Plus Skin Protectant]) 1 applic TOP DAILY [facility] Last Admin: 12/18/17 09:27 Dose: Not Given Ondansetron HCl (Zofran Tab) 4 mg PO Q6 PRN PRN Reason: Nausea/Vomiting Last Admin: 12/15/17 15:18 Dose: 4 mg Oxycodone HCl (Oxycodone Immediate Release Tab) 5 mg PO Q6H PRN PRN Reason: Pain, severe (8-10) Last Admin: 12/16/17 01:45 Dose: 5 mg Pantoprazole Sodium (Protonix Ec Tab) 40 mg PO 0600 [facility] Last Admin: 12/19/17 05:44 Dose: Not Given Polyethylene Glycol (Miralax) 17 gm PO BID [facility] Last Admin: 12/18/17 17:19 Dose: Not Given Potassium Phos/Sodium Phos (Neutra-Phos) 1 pkt PO TID [facility] Last Admin: 12/18/17 17:19 Dose: Not Given Saliva Substitute (Saliva Substitute) 0 ml PO WM [facility] Last Admin: 12/18/17 17:19 Dose: Not Given Vitamin A (Vitamin A & D Oint Ud Foilpak) 1 ea TOP TID [facility] Last Admin: 12/18/17 17:28 Dose: 1 ea Zolpidem Tartrate (Ambien) 5 mg PO HS PRN; Protocol PRN Reason: Insomnia Last Admin: 12/15/17 22:29 Dose: 5 mg - Labs Labs: 12/18/17 05:45 12/18/17 05:45 PT 24.0 SECONDS (9.4-12.5) H 12/18/17 09:00 INR 2.06 (0.93-1.08) H 12/18/17 09:00 APTT 32.7 Seconds (25.1-36.5) 12/18/17 09:00 - Constitutional Appears: No Acute Distress - Eye Exam Eye Exam: Normal appearance - ENT Exam ENT Exam: Mucous Membranes Dry, Mucous Membranes Moist - Respiratory Exam Respiratory Exam: Decreased Breath Sounds - Cardiovascular Exam Cardiovascular Exam: +S1, +S2 Additional comments: right chest port/accessed - GI/Abdominal Exam GI & Abdominal Exam: Soft, Normal Bowel Sounds - Neurological Exam Neurological Exam: Alert, Awake - Psychiatric Exam Psychiatric exam: Anxious - Skin Skin Exam: Dry, Warm Additional comments: sacral ulcer Assessment and Plan - Assessment and Plan (Free Text) Assessment: A 72 year old male who came in to the ER due to failure to thrive and lightheadedness. Patient has history of smoking,non-small cell lung cancer with bone mets, right tibial pathological fracture,11/14/17 had right tibial nail and catrachito placement, sacral ulcer stage 4. low WBC. today, had episode of SVT. Electrolyte related Potassium 2.8. 12 lead EKG normal. 12/13/17- ECHO LVEF 50%, moderately dilated RV,moderately reduced systolic function, moderate pulmonary hypertension. Blood culture positive for negative coagulase staphylococcus.ID on consult. IV antibiotics. Plan: For PEG placement today Poor oral intake,dysphagia Continue IV fluids for hydration Telemetry NSR Cardiac status stable Blood pressure and heart rate controlled Continue IV antibiotics per ID. Continue current treatment Continue current medications Followed up by Oncology Will follow up Plan and treatment discussed with Dr. Pro
[2017-12-19 06:48] LABS: GRAN # 8.11 (1.4-6.5); GRAN % 87.5 % (50.0-68.0); HEMOGLOBIN 8.2 g/dL (14.0-18.0); LYMPH # 0.7 (1.2-3.4); LYMPH % 7.6 % (22.0-35.0); MEAN CELL VOLUME 91.8 fl (80.0-105.0); MEAN CORPUSCULAR HEMOGLOBIN 29.1 pg (25.0-35.0); MEAN CORPUSCULAR HGB CONC 31.7 g/dl (31.0-37.0); MEAN PLATELET VOLUME 10.1 fl (7.0-11.0); MONO # 0.5 (0.1-0.6); MONO % 4.9 % (1.0-6.0); RBC 2.82 10^6/uL (3.5-6.1); RED CELL DISTRIBUTION WIDTH 16.7 % (11.5-14.5); WHITE BLOOD COUNT 9.3 10^3/ul (4.5-11.0)
[2017-12-19 06:49] LABS: INR 1.53
[2017-12-19 07:01] LABS: ALB/GLOB RATIO 0.8 (1.1-1.8); ALBUMIN 2.1 g/dL (3.0-4.8); ALT/SGPT 19 U/L (7-56); AST/SGOT 27 U/L (17-59); BLOOD UREA NITROGEN 6 mg/dL (7-21); CALCIUM 7.6 mg/dL (8.4-10.5); GFR AFRICAN-AMERICAN > 60; GFR NON-AFRICAN AMERICAN > 60
--- NOTE | 2017-12-19 07:02 | CP.PCM.PN ---
Subjective - Date & Time of Evaluation Date of Evaluation: 12/18/17 Time of Evaluation: 15:00 - Subjective Subjective: Jacqui Keen, PGY2, Progress Note for Dr Wolf: Patient seen and examined at bedside. Patient had periods of confusion. Denies fevers, chills, nausea, vomiting. Patient refused bipap, placed on NRB. Objective - Vital Signs/Intake and Output Vital Signs (last 24 hours): Temp Pulse Resp BP Pulse Ox 97.8 F 90 20 135/73 94 L 12/18/17 17:16 12/19/17 06:01 12/18/17 17:16 12/19/17 06:01 12/18/17 17:16 Intake and Output: 12/18/17 12/19/17 18:59 06:59 Intake Total 0 Output Total 700 Balance -700 - Medications Medications: Current Medications Acetaminophen (Tylenol 325mg Tab) 650 mg PO Q6H PRN PRN Reason: PAIN/FEVER Last Admin: 12/13/17 08:28 Dose: 650 mg Acetylcysteine (Acetylcysteine 20%) 3 ml IH Q6 [facility] Alprazolam (Xanax) 0.25 mg PO Q8H [facility] PRN Reason: Protocol Stop: 12/19/17 17:05 Last Admin: 12/19/17 01:51 Dose: Not Given Arformoterol Tartrate (Brovana) 15 mcg IH [id number] [facility] Last Admin: 12/18/17 19:51 Dose: 15 mcg Atorvastatin Calcium (Lipitor) 10 mg PO DIN [facility] Last Admin: 12/18/17 17:19 Dose: Not Given Calcium Carbonate (Caltrate) 600 mg PO BID [facility] Last Admin: 12/18/17 17:18 Dose: Not Given Collagenase (Santyl) 1 gm TOP DAILY [facility] Last Admin: 12/18/17 09:29 Dose: 1 applic Al Hydrox/Mg Hydrox/Simethicone 30 ml/Diphenhydramine HCl 75 mg/Lidocaine 30 ml 0 ml PO Q2H PRN PRN Reason: MOUTH/THROAT PAIN Docusate Sodium (Colace) 200 mg PO BID [facility] Last Admin: 12/18/17 17:18 Dose: Not Given Enoxaparin Sodium (Lovenox) 30 mg SC DAILY [facility] PRN Reason: Protocol Last Admin: 12/17/17 10:53 Dose: 30 mg Folic Acid (Folic Acid) 1 mg PO BID [facility] Last Admin: 12/18/17 17:19 Dose: Not Given Dextrose/Sodium Chloride (Dextrose 5%/0.45% Ns 1000 Ml) 1,000 mls @ 85 mls/hr IV .[id number] [facility] Last Admin: 12/17/17 16:36 Dose: 85 mls/hr Meropenem (Merrem Iv 1 Gm Premix) 50 mls @ 100 mls/hr IVPB Q8 [facility] PRN Reason: Protocol Stop: 12/21/17 14:01 Last Admin: 12/19/17 06:01 Dose: 100 mls/hr Vancomycin HCl (Vancomycin 1gm) 1 gm in 250 mls @ 167 mls/hr IVPB Q12H [facility] PRN Reason: Protocol Stop: 12/21/17 13:46 Last Admin: 12/19/17 02:18 Dose: 167 mls/hr Lactic Acid (Lac-Hydrin 12% Cream (140 G)) 1 ea TOP DAILY [facility] Last Admin: 12/18/17 09:34 Dose: Not Given Levalbuterol HCl (Xopenex) 0.63 mg IH [id number] PRN PRN Reason: Shortness of Breath Last Admin: 12/18/17 11:54 Dose: 0.63 mg Lidocaine (Lidocaine 5%) 0 gm TOP TID [facility] Last Admin: 12/18/17 17:19 Dose: Not Given Megestrol Acetate (Megace) 40 mg PO DAILY [facility] Last Admin: 12/18/17 09:28 Dose: Not Given Methylprednisolone (Solu-Medrol) 40 mg IVP Q8 [facility] Last Admin: 12/19/17 06:01 Dose: 40 mg Metoprolol Tartrate (Lopressor) 5 mg IVP Q6 [facility] Last Admin: 12/19/17 06:01 Dose: 5 mg Mirtazapine (Remeron) 15 mg PO HS [facility] Last Admin: 12/18/17 21:24 Dose: Not Given Non-Formulary Medication (Dimethicone [Proshield Plus Skin Protectant]) 1 applic TOP DAILY [facility] Last Admin: 12/18/17 09:27 Dose: Not Given Ondansetron HCl (Zofran Tab) 4 mg PO Q6 PRN PRN Reason: Nausea/Vomiting Last Admin: 12/15/17 15:18 Dose: 4 mg Oxycodone HCl (Oxycodone Immediate Release Tab) 5 mg PO Q6H PRN PRN Reason: Pain, severe (8-10) Last Admin: 12/16/17 01:45 Dose: 5 mg Pantoprazole Sodium (Protonix Ec Tab) 40 mg PO 0600 [facility] Last Admin: 12/19/17 05:44 Dose: Not Given Polyethylene Glycol (Miralax) 17 gm PO BID [facility] Last Admin: 12/18/17 17:19 Dose: Not Given Potassium Phos/Sodium Phos (Neutra-Phos) 1 pkt PO TID [facility] Last Admin: 12/18/17 17:19 Dose: Not Given Saliva Substitute (Saliva Substitute) 0 ml PO WM [facility] Last Admin: 12/18/17 17:19 Dose: Not Given Vitamin A (Vitamin A & D Oint Ud Foilpak) 1 ea TOP TID [facility] Last Admin: 12/18/17 17:28 Dose: 1 ea Zolpidem Tartrate (Ambien) 5 mg PO HS PRN; Protocol PRN Reason: Insomnia Last Admin: 12/15/17 22:29 Dose: 5 mg - Labs Labs: 12/18/17 05:45 12/18/17 05:45 PT 17.7 SECONDS 12/19/17 06:15 INR 1.53 12/19/17 06:15 APTT 32.7 Seconds (25.1-36.5) 12/18/17 09:00 - Constitutional Appears: Non-toxic - Head Exam Head Exam: ATRAUMATIC, NORMOCEPHALIC - Eye Exam Eye Exam: EOMI, PERRL. absent: Conjunctival injection, Nystagmus, Scleral icterus Pupil Exam: NORMAL ACCOMODATION, PERRL. absent: Irregular, Unequal - ENT Exam ENT Exam: Mucous Membranes Moist - Neck Exam Neck Exam: Full ROM - Respiratory Exam Respiratory Exam: Clear to Ausculation Bilateral, NORMAL BREATHING PATTERN. absent: Accessory Muscle Use, Rhonchi, Wheezes - Cardiovascular Exam Cardiovascular Exam: RRR, +S1, +S2. absent: Murmur - GI/Abdominal Exam GI & Abdominal Exam: Soft, Normal Bowel Sounds. absent: Firm, Guarding, Rigid, Tenderness, Mass, Organomegaly - Extremities Exam Extremities Exam: Pedal Edema - Back Exam Additional comments: + sacral ulcer - Neurological Exam Neurological Exam: Alert, Awake - Psychiatric Exam Psychiatric exam: Depressed - Skin Skin Exam: Dry, Normal Color, Warm Assessment and Plan - Assessment and Plan (Free Text) Assessment: 72 year old male with PMH stage IV NSCLC (with bony metastases, diagnosed last month, treated with palliative radiation by Dr. Vega), COPD, R tibial pathological fx, sacral decubitus ulcer stage IV, admitted for failure to thrive. He was recently diagnosed with lung biopsy and thoracentesis by Dr. Chandler last month. 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 Repeat blood cultures neg to date. -On vanc and merem -Echo without vegetations, showed moderate pulmonary HTN -ID on board. appreciate recs. Failure to thrive: -Likely secondary to worsening tumor burden, pain, infection, decubitus ulcer -c/w dietary supplement -PEG tube placement as per GI. appreciate help. NSCLC Stage IV -He is s/p first round of carboplatin and pemetrexed -Dr. Vega to continue radiation to the R tibia -Received Aredia at infusion clinic prior to admission, will be able to continue as an outpatient once he has stabilized Hypokalemia: - will replete - monitor Normocytic Anemia: -Likely due to anemia of chronic disease, no obvious signs of bleeding at this time -H/H is stable -Will continue to monitor R Tibial and foot pain: -He is s/p repair by Dr. Fuller -We will continue 5% topical lidocaine ointment TID for his continuing pain -Oxycodone 5 mg q6h PRN for pain -Podiatry consulted, appreciate recs Sacral Decubitus Ulcer: -Per surgery, his ulcer is unstageable at this time -Q2 turns, air mattress, BID santyl application, multipodus boots ordered -Out of bed to chair twice daily, requested nursing obtain and use donut pad while he is in the chair DVT/GI PPX: Lovenox and protonix Case seen and discussed with Dr. Wolf
[2017-12-19 07:04] LABS: B-TYPE NATRIURETIC PEPTIDE 5060 pg/mL (0-450)
[2017-12-19] MEDS: Acetylcysteine 20% Inhal Soln (4ml) IH SCH ×3 (07:21→19:47)
[2017-12-19] MEDS: Arformoterol 15 mcg/2 ml Inh Sol IH SCH ×2 (07:22→19:47)
[2017-12-19] MEDS ORDERED: Sodium Chloride 0.9% 1,000 ML IV SCH (09:30)
[2017-12-19] MEDS ORDERED: Magnesium 2 gm/50 ml NS 2 GM/50 ML BAG IVPB ONE (10:29)
--- NOTE | 2017-12-19 10:38 | RAD ---
Date of service: 12/19/2017 HISTORY: atelectesis COMPARISON: 12/18/2017 FINDINGS: LUNGS: There is complete consolidation of the left lung and mediastinal shift to the left. This is unchanged. Patchy infiltrate at the right lung base unchanged PLEURA: No significant pleural effusion identified, no pneumothorax apparent. CARDIOVASCULAR: Normal. OSSEOUS STRUCTURES: No significant abnormalities. VISUALIZED UPPER ABDOMEN: Normal. OTHER FINDINGS: None. IMPRESSION: There is complete consolidation of the left lung and mediastinal shift to the left. This is unchanged. Patchy infiltrate at the right lung base unchanged
[2017-12-19] MEDS ORDERED: Propofol 10 mg/ml Inj (20 ML) ONE (12:46)
[2017-12-19] MEDS ORDERED: Etomidate 20 mg/10ml Inj IV ONE (14:41)
--- NOTE | 2017-12-19 16:27 | PN ---
Copied To: Barrera Purdy MD Attending MD: Barrera Purdy MD. DATE: 12/19/2017 SUBJECTIVE: The patient is seen earlier today in room 363, bed 2. No fevers and chills. Chronically ill, weak. PHYSICAL EXAMINATION: VITAL SIGNS: Temperature of 98, blood pressure is 135/72, respiratory rate of 20, heart rate of 90. HEENT: Examination of HEENT is unremarkable. NECK: Supple. LUNGS: Have decreased breath sounds. HEART: Normal S1, S2. ABDOMEN: Soft, nontender. LABORATORY DATA: Laboratory examination reveals a white count of 9.3, hemoglobin of 8, platelets of 204. BUN of 6, creatinine of 0.3. Toxicology is noted. Vanco trough is 11.4. Microbiology reveals the blood cultures are no growth. Chest x-ray: Complete consolidation of the left lung, mediastinal shift to the left. ASSESSMENT AND PLAN: A 72-year-old male with sepsis with a coag-negative Staph bacteremia, suspicious for a Port-A-Cath infection as the source versus an unstageable stage IV sacral ulcer in a patient with metastatic non-small cell lung cancer, chronic obstructive pulmonary disease and cachexia. On day #7 of vancomycin and meropenem and 2Ds did not show any vegetations. Review of orders reveals meropenem and vancomycin to be active. The patient has also Solu-Medrol with a vancomycin trough level of 11.4. We will continue the present regimen. We will follow closely with you. Barrera Purdy MD
[2017-12-19] MEDS: Dextrose 5%/0.45% NS 1,000 ML IV SCH ×2 (20:30→23:02)
--- NOTE | 2017-12-20 00:47 | PN ---
Copied To: Judit Dent MD Attending MD: Judit Dent MD DATE: 12/19/2017 PULMONARY PROGRESS NOTE REFERRING PHYSICIAN: Artem Wolf MD. SUBJECTIVE: The patient is lying in the bed. Just came back from G-tube placement on high-flow nasal cannula, unable to cough and pulmonary secretion. No hemoptysis. No hematemesis. No hematuria. No diarrhea, leg pain, leg swelling. OBJECTIVE: GENERAL: In no acute distress. VITAL SIGNS: Temp is 98, heart rate is 90, respiratory rate is 18, blood pressure 129/69, pulse ox 100% on high-flow face-mask oxygen. HEENT: Moist mucous membranes. No ulcer or thrush noted. NECK: Supple. No JVD. LUNGS: Have decreased breath on the left lung. HEART: S1 and S2. ABDOMEN: Soft, nondistended. G-tube area looks okay. EXTREMITIES: There is no edema. NEUROLOGICAL: Awake and alert. Follows simple command. MEDICATIONS: He is on Mucomyst inhaled every 6 hours, Ambien 5 mg at bedtime p.r.n., Brovana inhaled twice a day, calcium carbonate 600 mg twice a day, Colace 200 mg twice a day, IV fluid half-normal saline 85 mL/hour, folic acid 1 mg daily, Lipitor 10 mg daily, metoprolol tartrate 5 mg every 6 hours, Lovenox 30 mg subcu daily, mag oxide 400 mg twice a day, Megace 40 mg daily, meropenem 1 g IV every 8 hours, MiraLax 17 g twice a day, Neutra-Phos one pack three times a day, Protonix 40 mg daily, Remeron 50 mg at bedtime, artificial saliva with the meals, Santyl at affected area, Solu-Medrol 40 mg every 8 hours, Tylenol p.r.n., vancomycin 1 g IV every 12 hours, Xopenex inhaled every 6 hours p.r.n., Zofran p.r.n. basis. LABORATORY DATA: Shows hemoglobin 8.2, hematocrit 25.9, WBC 9.3, platelet count is 204. INR 1.53, PTT is 30. Sodium 135, potassium 3.4, chloride 95, bicarbonate 37, BUN 6, creatinine 0.3, glucose 120, calcium 7.6, magnesium is 1.5, AST 27, ALT 19, alk phos is 90. ProBNP 5060. Albumin is 2.1. Status post EGD and G-tube placement. Chest x-ray done early this morning still shows complete consolidation of the left lung with mediastinal shift to the left, patchy infiltrate on the right lung base noted. IMPRESSION AND PLAN: Metastatic lung cancer involved the bone, vertebra; had a pathological fracture of the right tibia requiring surgery; chronic obstructive lung disease; left lung collapse with probably mucus plugging; decubitus ulcer; oropharyngeal dysphagia requiring gastrostomy tube. I had a long discussion with the patient. Needed to do bedside nasopharyngeal suction, also bronchoscopy offer, the patient refused to do any procedure at that time. Spoke to nursing staff. Encourage the Respiratory Therapies to do nasal suction. Continue steroids, antibiotics, supplement oxygen. Overall poor prognosis. We will suggest to get him out of bed to chair. Incentive spirometer. Thank you and we will follow with you. Judit Dent MD
[2017-12-20] MEDS: Metoprolol 1 mg/ml Inj IVP SCH ×4 (01:32→18:11)
[2017-12-20] MEDS: Vancomycin 1gm in NS 250ml 1 GM/250 ML BAG IVPB SCH ×2 (02:32→13:50)
[2017-12-20] MEDS: Acetylcysteine 20% Inhal Soln (4ml) IH SCH ×4 (02:45→20:38)
[2017-12-20 05:48] LABS: GRAN # 8.93 (1.4-6.5); GRAN % 91.9 % (50.0-68.0); HEMOGLOBIN 8.2 g/dL (14.0-18.0); LYMPH # 0.5 (1.2-3.4); LYMPH % 4.7 % (22.0-35.0); MEAN CELL VOLUME 92.6 fl (80.0-105.0); MEAN CORPUSCULAR HGB CONC 31.3 g/dl (31.0-37.0); MEAN PLATELET VOLUME 9.7 fl (7.0-11.0); MONO # 0.3 (0.1-0.6); MONO % 3.4 % (1.0-6.0); PLATELET COUNT 220 10^3/uL (120.0-450.0); RBC 2.83 10^6/uL (3.5-6.1); RED CELL DISTRIBUTION WIDTH 16.6 % (11.5-14.5); WHITE BLOOD COUNT 9.7 10^3/ul (4.5-11.0)
[2017-12-20] MEDS: Meropenem IV 1 gm in NS 50 ML IVPB SCH (06:03)
[2017-12-20] MEDS: Pantoprazole 40 mg EC Tab PO SCH (06:04)
[2017-12-20] MEDS: MethylPREDNISolone 40 mg Vial IVP SCH ×4 (06:10→21:44)
[2017-12-20 06:29] LABS: BLOOD UREA NITROGEN 7 mg/dL (7-21); CALCIUM 7.4 mg/dL (8.4-10.5); GFR AFRICAN-AMERICAN > 60; GFR NON-AFRICAN AMERICAN > 60
[2017-12-20 06:52] LABS: ANISOCYTOSIS SLIGHT; LYMPHOCYTE 3 % (22.0-35.0); MONOCYTE 1 % (1.0-6.0); NEUTROPHIL 96 % (50.0-70.0); PLATELET ESTIMATE NORMAL (NORMAL)
--- NOTE | 2017-12-20 06:58 | CP.PCM.PN ---
Subjective - Date & Time of Evaluation Date of Evaluation: 12/20/17 Time of Evaluation: 06:10 - Subjective Subjective: Awake, alert, on NRM Reason for consultation: Cardiac evaluation for SVT, history of non-small cell lung cancer with bone metastasis, low potassium level Seen and examined by me and Dr. Pro Objective - Vital Signs/Intake and Output Vital Signs (last 24 hours): Temp Pulse Resp BP Pulse Ox 97.7 F 91 H 18 142/73 97 12/20/17 00:00 12/20/17 06:10 12/20/17 00:00 12/20/17 06:10 12/20/17 00:00 Intake and Output: 12/19/17 12/20/17 18:59 06:59 Intake Total 1020 Balance 1020 - Medications Medications: Current Medications Acetaminophen (Tylenol 325mg Tab) 650 mg PO Q6H PRN PRN Reason: PAIN/FEVER Last Admin: 12/13/17 08:28 Dose: 650 mg Acetylcysteine (Acetylcysteine 20%) 3 ml IH Q6 [facility] Last Admin: 12/20/17 02:45 Dose: Not Given Arformoterol Tartrate (Brovana) 15 mcg IH [id number] [facility] Last Admin: 12/19/17 19:47 Dose: 15 mcg Atorvastatin Calcium (Lipitor) 10 mg PO DIN [facility] Last Admin: 12/18/17 17:19 Dose: Not Given Calcium Carbonate (Caltrate) 600 mg PO BID [facility] Last Admin: 12/19/17 11:36 Dose: Not Given Collagenase (Santyl) 1 gm TOP DAILY [facility] Last Admin: 12/18/17 09:29 Dose: 1 applic Al Hydrox/Mg Hydrox/Simethicone 30 ml/Diphenhydramine HCl 75 mg/Lidocaine 30 ml 0 ml PO Q2H PRN PRN Reason: MOUTH/THROAT PAIN Docusate Sodium (Colace) 200 mg PO BID [facility] Last Admin: 12/19/17 11:36 Dose: Not Given Enoxaparin Sodium (Lovenox) 30 mg SC DAILY [facility] PRN Reason: Protocol Last Admin: 12/17/17 10:53 Dose: 30 mg Folic Acid (Folic Acid) 1 mg PO BID [facility] Last Admin: 12/19/17 11:37 Dose: Not Given Dextrose/Sodium Chloride (Dextrose 5%/0.45% Ns 1000 Ml) 1,000 mls @ 85 mls/hr IV .[id number] [facility] Last Admin: 12/19/17 23:02 Dose: 85 mls/hr Meropenem (Merrem Iv 1 Gm Premix) 50 mls @ 100 mls/hr IVPB Q8 [facility] PRN Reason: Protocol Stop: 12/21/17 14:01 Last Admin: 12/20/17 06:03 Dose: 100 mls/hr Vancomycin HCl (Vancomycin 1gm) 1 gm in 250 mls @ 167 mls/hr IVPB Q12H [facility] PRN Reason: Protocol Stop: 12/21/17 13:46 Last Admin: 12/20/17 02:32 Dose: 167 mls/hr Lactic Acid (Lac-Hydrin 12% Cream (140 G)) 1 ea TOP DAILY [facility] Last Admin: 12/18/17 09:34 Dose: Not Given Levalbuterol HCl (Xopenex) 0.63 mg IH [id number] PRN PRN Reason: Shortness of Breath Last Admin: 12/18/17 11:54 Dose: 0.63 mg Lidocaine (Lidocaine 5%) 0 gm TOP TID [facility] Last Admin: 12/18/17 17:19 Dose: Not Given Magnesium Oxide (Mag-Ox) 400 mg PO BID [facility] Stop: 12/20/17 23:59 Megestrol Acetate (Megace) 40 mg PO DAILY [facility] Last Admin: 12/18/17 09:28 Dose: Not Given Methylprednisolone (Solu-Medrol) 40 mg IVP Q8 [facility] Last Admin: 12/20/17 06:10 Dose: 40 mg Metoprolol Tartrate (Lopressor) 5 mg IVP Q6 [facility] Last Admin: 12/20/17 06:10 Dose: 5 mg Mirtazapine (Remeron) 15 mg PO HS [facility] Last Admin: 12/19/17 21:52 Dose: Not Given Non-Formulary Medication (Dimethicone [Proshield Plus Skin Protectant]) 1 applic TOP DAILY [facility] Last Admin: 12/18/17 09:27 Dose: Not Given Ondansetron HCl (Zofran Tab) 4 mg PO Q6 PRN PRN Reason: Nausea/Vomiting Last Admin: 12/15/17 15:18 Dose: 4 mg Pantoprazole Sodium (Protonix Ec Tab) 40 mg PO 0600 [facility] Last Admin: 12/20/17 06:04 Dose: Not Given Polyethylene Glycol (Miralax) 17 gm PO BID [facility] Last Admin: 12/18/17 17:19 Dose: Not Given Potassium Phos/Sodium Phos (Neutra-Phos) 1 pkt PO TID [facility] Last Admin: 12/18/17 17:19 Dose: Not Given Potassium Phos/Sodium Phos (Neutra-Phos) 1 pkt PO TID [facility] Stop: 12/20/17 23:00 Saliva Substitute (Saliva Substitute) 0 ml PO WM [facility] Last Admin: 12/18/17 17:19 Dose: Not Given Vitamin A (Vitamin A & D Oint Ud Foilpak) 1 ea TOP TID [facility] Last Admin: 12/18/17 17:28 Dose: 1 ea Zolpidem Tartrate (Ambien) 5 mg PO HS PRN; Protocol PRN Reason: Insomnia Last Admin: 12/15/17 22:29 Dose: 5 mg - Labs Labs: 12/20/17 05:30 12/20/17 05:30 PT 17.7 SECONDS 12/19/17 06:15 INR 1.53 12/19/17 06:15 APTT 30.0 Seconds 12/19/17 06:15 - Eye Exam Eye Exam: Normal appearance - ENT Exam ENT Exam: Mucous Membranes Dry - Respiratory Exam Respiratory Exam: Decreased Breath Sounds, Rhonchi - Cardiovascular Exam Cardiovascular Exam: REGULAR RHYTHM, +S1, +S2 Additional comments: telemetry NSR 90's right chest port/accessed - GI/Abdominal Exam GI & Abdominal Exam: Soft, Normal Bowel Sounds Additional comments: PEG tube intact - Extremities Exam Additional comments: 1+ edema - Neurological Exam Neurological Exam: Alert, Awake - Psychiatric Exam Psychiatric exam: Normal Affect - Skin Skin Exam: Dry, Warm Additional comments: sacral ulcer Assessment and Plan - Assessment and Plan (Free Text) Assessment: A 72 year old male who came in to the ER due to failure to thrive and lightheadedness. Patient has history of smoking,non-small cell lung cancer with bone mets, right tibial pathological fracture,11/14/17 had right tibial nail and catrachito placement, sacral ulcer stage 4. low WBC. today, had episode of SVT. Electrolyte related Potassium 2.8. 12 lead EKG normal. 12/13/17- ECHO LVEF 50%, moderately dilated RV,moderately reduced systolic function, moderate pulmonary hypertension. Blood culture positive for negative coagulase staphylococcus.ID on consult. IV antibiotics. PEG inserted. Plan: On non-rebreather mask Post PEG placement/inserted yesterday Site bleeding, per RN claimed patient touching NPO/ Poor oral intake,dysphagia Continue IV fluids for hydration Telemetry NSR, no episodes of SVT Replenish potassium as needed Cardiac status stable Blood pressure and heart rate controlled Continue IV antibiotics per ID. Continue current treatment Continue current medications Followed up by Oncology Pulmonary on consult Will follow up Plan and treatment discussed with Dr. Pro
--- NOTE | 2017-12-20 07:30 | CP.PCM.PN ---
<Terrie Gordon - Last Filed: 12/20/17 16:51> Subjective - Date & Time of Evaluation Date of Evaluation: 12/20/17 Time of Evaluation: 07:00 - Subjective Subjective: Terrie Gordon DO, PGY-2: GI Progress Note for Dr. Levine Patient was seen and examined at bedside. At 7:00 AM the patient was observed to have blood soaking his PEG tube dressing as well as a the clothing overlying the site of the dressing. The overnight nurse did report that she changed the patient's PEG tube dressing at approximately 02:30 AM given there was blood noted on the dressing. The night nurse also reports that the patient was picking at the PEG tube site, intermittently through out the night. We changed his dressing, ordered a stat INR, and a repeat CBC to be drawn at 10:00 AM. We will hold off on PEG tube feeding for today considering the bleeding. He can be given his PO medications via PEG tube and the PEG tube is to be be flushed with 50 mL of NS q6h for hydration and to maintain tube patency. This was discussed with the primary team and his nurse. We also requested the nurse to monitor the PEG tube site q2h to assess for bleeding. Objective - Vital Signs/Intake and Output Vital Signs (last 24 hours): Temp Pulse Resp BP Pulse Ox 97.7 F 91 H 18 142/73 97 12/20/17 00:00 12/20/17 06:10 12/20/17 00:00 12/20/17 06:10 12/20/17 00:00 Intake and Output: 12/20/17 12/20/17 06:59 18:59 Intake Total 1020 Balance 1020 - Medications Medications: Current Medications Acetaminophen (Tylenol 325mg Tab) 650 mg PO Q6H PRN PRN Reason: PAIN/FEVER Last Admin: 12/13/17 08:28 Dose: 650 mg Acetylcysteine (Acetylcysteine 20%) 3 ml IH Q6 [facility] Last Admin: 12/20/17 02:45 Dose: Not Given Arformoterol Tartrate (Brovana) 15 mcg IH [id number] [facility] Last Admin: 12/19/17 19:47 Dose: 15 mcg Atorvastatin Calcium (Lipitor) 10 mg PO DIN [facility] Last Admin: 12/18/17 17:19 Dose: Not Given Calcium Carbonate (Caltrate) 600 mg PO BID [facility] Last Admin: 12/19/17 11:36 Dose: Not Given Collagenase (Santyl) 1 gm TOP DAILY [facility] Last Admin: 12/18/17 09:29 Dose: 1 applic Al Hydrox/Mg Hydrox/Simethicone 30 ml/Diphenhydramine HCl 75 mg/Lidocaine 30 ml 0 ml PO Q2H PRN PRN Reason: MOUTH/THROAT PAIN Docusate Sodium (Colace) 200 mg PO BID [facility] Last Admin: 12/19/17 11:36 Dose: Not Given Enoxaparin Sodium (Lovenox) 30 mg SC DAILY [facility] PRN Reason: Protocol Last Admin: 12/17/17 10:53 Dose: 30 mg Folic Acid (Folic Acid) 1 mg PO BID [facility] Last Admin: 12/19/17 11:37 Dose: Not Given Dextrose/Sodium Chloride (Dextrose 5%/0.45% Ns 1000 Ml) 1,000 mls @ 85 mls/hr IV .[id number] [facility] Last Admin: 12/19/17 23:02 Dose: 85 mls/hr Meropenem (Merrem Iv 1 Gm Premix) 50 mls @ 100 mls/hr IVPB Q8 [facility] PRN Reason: Protocol Stop: 12/21/17 14:01 Last Admin: 12/20/17 06:03 Dose: 100 mls/hr Vancomycin HCl (Vancomycin 1gm) 1 gm in 250 mls @ 167 mls/hr IVPB Q12H [facility] PRN Reason: Protocol Stop: 12/21/17 13:46 Last Admin: 12/20/17 02:32 Dose: 167 mls/hr Lactic Acid (Lac-Hydrin 12% Cream (140 G)) 1 ea TOP DAILY [facility] Last Admin: 12/18/17 09:34 Dose: Not Given Levalbuterol HCl (Xopenex) 0.63 mg IH [id number] PRN PRN Reason: Shortness of Breath Last Admin: 12/18/17 11:54 Dose: 0.63 mg Lidocaine (Lidocaine 5%) 0 gm TOP TID [facility] Last Admin: 12/18/17 17:19 Dose: Not Given Magnesium Oxide (Mag-Ox) 400 mg PO BID [facility] Stop: 12/20/17 23:59 Megestrol Acetate (Megace) 40 mg PO DAILY [facility] Last Admin: 12/18/17 09:28 Dose: Not Given Methylprednisolone (Solu-Medrol) 40 mg IVP Q8 [facility] Last Admin: 12/20/17 06:10 Dose: 40 mg Metoprolol Tartrate (Lopressor) 5 mg IVP Q6 [facility] Last Admin: 12/20/17 06:10 Dose: 5 mg Mirtazapine (Remeron) 15 mg PO HS [facility] Last Admin: 12/19/17 21:52 Dose: Not Given Non-Formulary Medication (Dimethicone [Proshield Plus Skin Protectant]) 1 applic TOP DAILY [facility] Last Admin: 12/18/17 09:27 Dose: Not Given Ondansetron HCl (Zofran Tab) 4 mg PO Q6 [facility]N PRN Reason: Nausea/Vomiting Last Admin: 12/15/17 15:18 Dose: 4 mg Pantoprazole Sodium (Protonix Ec Tab) 40 mg PO 0600 [facility] Last Admin: 12/20/17 06:04 Dose: Not Given Polyethylene Glycol (Miralax) 17 gm PO BID [facility] Last Admin: 12/18/17 17:19 Dose: Not Given Potassium Phos/Sodium Phos (Neutra-Phos) 1 pkt PO TID [facility] Last Admin: 12/18/17 17:19 Dose: Not Given Potassium Phos/Sodium Phos (Neutra-Phos) 1 pkt PO TID [facility] Stop: 12/20/17 23:00 Saliva Substitute (Saliva Substitute) 0 ml PO WM [facility] Last Admin: 12/18/17 17:19 Dose: Not Given Vitamin A (Vitamin A & D Oint Ud Foilpak) 1 ea TOP TID [facility] Last Admin: 12/18/17 17:28 Dose: 1 ea Zolpidem Tartrate (Ambien) 5 mg PO HS PRN; Protocol PRN Reason: Insomnia Last Admin: 12/15/17 22:29 Dose: 5 mg - Labs Labs: 12/20/17 05:30 12/20/17 05:30 PT 17.7 SECONDS 12/19/17 06:15 INR 1.53 12/19/17 06:15 APTT 30.0 Seconds 12/19/17 06:15 - Constitutional Appears: Non-toxic, No Acute Distress - Head Exam Head Exam: ATRAUMATIC, NORMOCEPHALIC - Eye Exam Eye Exam: EOMI, Normal appearance - Neck Exam Neck Exam: Normal Inspection - Respiratory Exam Respiratory Exam: Decreased Breath Sounds, NORMAL BREATHING PATTERN. absent: Accessory Muscle Use - Cardiovascular Exam Cardiovascular Exam: RRR, +S1, +S2 - GI/Abdominal Exam GI & Abdominal Exam: Soft, Normal Bowel Sounds. absent: Rigid, Tenderness, Rebound - Extremities Exam Extremities Exam: Normal Inspection. absent: Calf Tenderness - Neurological Exam Neurological Exam: Alert, Awake - Psychiatric Exam Psychiatric exam: Normal Affect, Normal Mood - Skin Skin Exam: Dry, Intact, Normal Color, Warm Assessment and Plan - Assessment and Plan (Free Text) Assessment: 72 year old male with a past medical history of stage IV NSCLC with bony metastases, COPD, pathologic right tibial fracture, an unstageable sacral decubitus ulcer who was admitted for failure to thrive and progressively worsening dysphagia. Upon admission the pateint was found to have gram positive bacteremia, an unstageable sacral ulcer, and a left sided pneumonia. GI was consulted for failure to thrive and placement of a PEG tube. Currently, the patient is POD #1. We will hold off on PEG tube feeding for today considering the bleeding from the PEG site. He can be given his PO medications via PEG tube and the PEG tube will be flushed with 50 mL of NS q6h for hydration and to maintain tube patency. This was discussed with the primary team and his nurse. We also requested the nurse to monitor the PEG tube site q2h to assess for bleeding. We will continue to monitor the patient closely. Case was reviewed and discussed with attending physician, Dr. Levine <Sam Levine V - Last Filed: 12/20/17 22:27> Objective - Vital Signs/Intake and Output Vital Signs (last 24 hours): Temp Pulse Resp BP Pulse Ox 98.0 F 65 18 105/65 96 12/20/17 17:12 12/20/17 18:11 12/20/17 17:12 12/20/17 18:11 12/20/17 17:12 Intake and Output: 12/20/17 12/21/17 18:59 06:59 Intake Total 200 Output Total 2425 Balance -2225 - Medications Medications: Current Medications Acetaminophen (Tylenol 325mg Tab) 650 mg PO Q6H PRN PRN Reason: PAIN/FEVER Last Admin: 12/20/17 18:08 Dose: 650 mg Acetylcysteine (Acetylcysteine 20%) 3 ml IH Q6 [facility] Last Admin: 12/20/17 20:38 Dose: 3 ml Arformoterol Tartrate (Brovana) 15 mcg IH [id number] [facility] Last Admin: 12/20/17 20:38 Dose: 15 mcg Atorvastatin Calcium (Lipitor) 10 mg PO DIN [facility] Last Admin: 12/20/17 18:09 Dose: 10 mg Calcium Carbonate (Caltrate) 600 mg PO BID [facility] Last Admin: 12/20/17 18:09 Dose: 600 mg Collagenase (Santyl) 1 gm TOP DAILY [facility] Last Admin: 12/18/17 09:29 Dose: 1 applic Al Hydrox/Mg Hydrox/Simethicone 30 ml/Diphenhydramine HCl 75 mg/Lidocaine 30 ml 0 ml PO Q2H PRN PRN Reason: MOUTH/THROAT PAIN Docusate Sodium (Colace) 200 mg PO BID [facility] Last Admin: 12/20/17 18:09 Dose: Not Given Enoxaparin Sodium (Lovenox) 30 mg SC DAILY [facility] PRN Reason: Protocol Last Admin: 12/20/17 10:01 Dose: 30 mg Folic Acid (Folic Acid) 1 mg PO BID [facility] Last Admin: 12/20/17 18:09 Dose: 1 mg Furosemide (Lasix) 40 mg IVP DAILY [facility] Dextrose/Sodium Chloride (Dextrose 5%/0.45% Ns 1000 Ml) 1,000 mls @ 85 mls/hr IV .[id number] [facility] Last Admin: 12/19/17 23:02 Dose: 85 mls/hr Vancomycin HCl (Vancomycin 1gm) 1 gm in 250 mls @ 167 mls/hr IVPB Q12H [facility] PRN Reason: Protocol Stop: 12/21/17 13:46 Last Admin: 12/20/17 13:50 Dose: 167 mls/hr Lactic Acid (Lac-Hydrin 12% Cream (140 G)) 1 ea TOP DAILY [facility] Last Admin: 12/18/17 09:34 Dose: Not Given Levalbuterol HCl (Xopenex) 0.63 mg IH [id number] PRN PRN Reason: Shortness of Breath Last Admin: 12/20/17 13:11 Dose: 0.63 mg Lidocaine (Lidocaine 5%) 0 gm TOP TID [facility] Last Admin: 12/18/17 17:19 Dose: Not Given Magnesium Oxide (Mag-Ox) 400 mg PO BID [facility] Stop: 12/20/17 23:59 Last Admin: 12/20/17 18:11 Dose: 400 mg Megestrol Acetate (Megace) 40 mg PO DAILY [facility] Last Admin: 12/18/17 09:28 Dose: Not Given Methylprednisolone (Solu-Medrol) 40 mg IVP Q8 [facility] Last Admin: 12/20/17 21:44 Dose: 40 mg Metoprolol Tartrate (Lopressor) 5 mg IVP Q6 [facility] Last Admin: 12/20/17 18:11 Dose: Not Given Mirtazapine (Remeron) 15 mg PO HS [facility] Last Admin: 12/20/17 21:04 Dose: 15 mg Non-Formulary Medication (Dimethicone [Proshield Plus Skin Protectant]) 1 applic TOP DAILY [facility] Last Admin: 12/20/17 10:00 Dose: Not Given Ondansetron HCl (Zofran Tab) 4 mg PO Q6 PRN PRN Reason: Nausea/Vomiting Last Admin: 12/15/17 15:18 Dose: 4 mg Pantoprazole Sodium (Protonix Ec Tab) 40 mg PO 0600 [facility] Last Admin: 12/20/17 06:04 Dose: Not Given Polyethylene Glycol (Miralax) 17 gm PO BID [facility] Last Admin: 12/20/17 18:12 Dose: 17 gm Potassium Phos/Sodium Phos (Neutra-Phos) 1 pkt PO TID [facility] Last Admin: 12/20/17 18:13 Dose: 1 pkt Potassium Phos/Sodium Phos (Neutra-Phos) 1 pkt PO TID [facility] Stop: 12/20/17 23:00 Saliva Substitute (Saliva Substitute) 0 ml PO WM [facility] Last Admin: 12/18/17 17:19 Dose: Not Given Vitamin A (Vitamin A & D Oint Ud Foilpak) 1 ea TOP TID [facility] Last Admin: 12/18/17 17:28 Dose: 1 ea Zolpidem Tartrate (Ambien) 5 mg PO HS PRN; Protocol PRN Reason: Insomnia Last Admin: 12/20/17 21:03 Dose: 5 mg - Labs Labs: 12/20/17 05:30 12/20/17 05:30 PT 13.6 SECONDS (9.4-12.5) H 12/20/17 07:11 INR 1.18 12/20/17 07:11 APTT 30.0 Seconds (25.1-36.5) 12/19/17 06:15 Attending/Attestation - Attestation I have personally seen and examined this patient.: Yes I have fully participated in the care of the patient.: Yes I have reviewed all pertinent clinical information, including history, physical exam and plan: Yes Notes (Text): This is an addendum to GI followup report dictated by the Staffing Director. The patient was seen an that we need to change it here d examined earlier. Medical records, lab studies, imagings were reviewed. Last 24 hours events reviewed. Agreed with the above treatment plan as outlined in Staffing Director 's notes with the addition of the following PEG site was evaluated No bleeding noticed further We will start and check for gatric residue 12/20/17 22:26
[2017-12-20] MEDS: Arformoterol 15 mcg/2 ml Inh Sol IH SCH ×2 (07:52→20:38)
[2017-12-20 08:36] LABS: INR 1.18; PROTHROMBIN TIME 13.6 SECONDS (9.4-12.5)
--- NOTE | 2017-12-20 08:58 | PN ---
DATE: 12/19/2017 SUBJECTIVE: In short, the patient is 72-year-old male with multiple medical issues including lung cancer stage IV with bony metastasis, diagnosed last month. The patient was in radiation therapy yesterday, that is why this underwriter solicitation director needs the opportunity to speak to this patient. The patient appeared to be depressed and has episodes of confusion, that is why this underwriter solicitation director got involved into the patient's care. The patient was started Remeron at the nighttime for depression as well as for insomnia as well as for boost appetite, but the patient is currently on n.p.o. The patient presented to be comfortable today. With some improvement, the patient smiled back to this underwriter solicitation director today. The patient reported that he feels fine. The patient is currently on n.p.o. PHYSICAL EXAMINATION: VITAL SIGNS: Seems to be stable. Temperature 98.2, pulse is 90, blood pressure 135/72, respirations 20, oxygen saturation is 96. MEDICATIONS: Reviewed. Remeron was not given, because the patient is n p.o. Medication list reviewed. LABORATORY DATA: Labs reviewed. WBC cells going down 9.3 today. Hemoglobin and hematocrit 8.2 and 25.9. Coagulation reviewed. Blood gas reviewed. Chemistry reviewed. Potassium 3.4. AST and ALT within normal limits. Vancomycin 11.4. MENTAL STATUS EXAM: The patient appears to be comfortable today, smiled back at this underwriter solicitation director. The patient is on oxygen mask. Mood described as okay. Affect was constricted, but reactive. Mood congruent. Thought process seems to be concrete, but at the same time as per medical team, the patient has periods of confusions. Insight and judgment seems to be limited. Impulses are well controlled. IMPRESSION: Most likely the patient is in delirium stage, rule out mood disorder and anxiety disorder due to general medical condition. PLAN: Continue current management. Continue current medications. Will follow up on this patient every other day or every 3 days. Should you have any questions, give me a call back. The patient is not in acute distress. The patient is not agitated or aggressive. Denied thoughts of harming himself or others. Should you have any questions give me a call back. Thank you. Mohini Oro MD [facility] # [phone]
--- NOTE | 2017-12-20 09:27 | RAD ---
Date of service: 12/20/2017 HISTORY: collap COMPARISON: 12/19/2017 FINDINGS: LUNGS: There is improved aeration of the left upper lobe. There is consolidation along the medial aspect of the left upper lobe and at the left lung base. PLEURA: Left-sided effusion CARDIOVASCULAR: Normal. OSSEOUS STRUCTURES: No significant abnormalities. VISUALIZED UPPER ABDOMEN: Normal. OTHER FINDINGS: None. IMPRESSION: There is improved aeration of the left upper lobe. There is consolidation along the medial aspect of the left upper lobe and at the left lung base.
[2017-12-20] MEDS: DIMETHICONE TOP SCH (10:00)
[2017-12-20] MEDS: Enoxaparin 30 mg Syringe SC SCH (10:01)
[2017-12-20] MEDS: Magnesium Oxide 400 mg Tab UD PO SCH ×2 (10:03→18:11)
[2017-12-20] MEDS: POLYETHYLENE GLYCOL 3350 17 GM/Dose PACKET PO SCH ×2 (10:03→18:12)
[2017-12-20] MEDS: Potassium & Sodium Phosphate PO SCH ×3 (10:04→18:13)
--- NOTE | 2017-12-20 10:17 | PN ---
Copied To: Barrera Purdy MD Attending MD: Barrera Purdy MD DATE: 12/20/2017 SUBJECTIVE: The patient is in bed, in no acute distress, nontoxic. PHYSICAL EXAMINATION: VITAL SIGNS: Temperature is 98, blood pressure is 120/70, respiratory rate of 16. HEENT: Examination of HEENT is unremarkable. NECK: Supple. LUNGS: Have decreased breath sounds. HEART: Normal S1, S2. ABDOMEN: Soft. LABORATORY DATA: Laboratory examination reveals a white count of 9.7, hemoglobin of 8. Chemistries reveals a BUN of 7, creatinine of 0.3 and procalcitonin of 0.10. Toxicology is noted with a vancomycin trough of 11. Microbiology reveals coag-negative Staph. Repeat blood cultures are negative. No growth at 5 days. Review of orders reveals the patient to be on vancomycin IV, Solu-Medrol, meropenem. ASSESSMENT AND PLAN: A 72-year-old male with sepsis with coagulase-negative Staphylococcus bacteremia, suspicious for a Port-A-Cath infection source versus unstageable stage IV sacral ulcer and metastatic non-small cell lung cancer, chronic obstructive lung disease and cachexia. Day #8 of vancomycin and meropenem. The patient is also on Solu-Medrol, would complete 10-14 days. The patient had surgery yesterday, which included percutaneous endoscopic gastrostomy tube placement. We will discontinue the meropenem. Overall prognosis quite poor. Barrera Purdy MD
[2017-12-20] MEDS: Levalbuterol 0.63 MG/3 ML Inhal Soln UD IH PRN (13:11)
[2017-12-20 13:26] LABS: PARTIAL THROMBOPLASTIN TIME 32.7 Seconds (25.1-36.5)
[2017-12-20 13:57] LABS: PROTHROMBIN TIME 17.7 SECONDS (9.4-12.5)
--- NOTE | 2017-12-20 16:59 | CP.PCM.PN ---
Subjective - Date & Time of Evaluation Date of Evaluation: 12/20/17 Time of Evaluation: 16:51 - Subjective Subjective: Jacqui Keen, PGY2, Progress Note for Dr Wolf: Patient seen and examined at bedside. No acute events overnight. Denies fevers, chills, nausea, vomiting. Objective - Vital Signs/Intake and Output Vital Signs (last 24 hours): Temp Pulse Resp BP Pulse Ox 97.8 F 91 H 18 140/65 98 12/20/17 06:00 12/20/17 06:10 12/20/17 06:00 12/20/17 12:46 12/20/17 06:00 Intake and Output: 12/20/17 12/20/17 06:59 18:59 Intake Total 1020 Balance 1020 - Medications Medications: Current Medications Acetaminophen (Tylenol 325mg Tab) 650 mg PO Q6H PRN PRN Reason: PAIN/FEVER Last Admin: 12/13/17 08:28 Dose: 650 mg Acetylcysteine (Acetylcysteine 20%) 3 ml IH Q6 [facility] Last Admin: 12/20/17 13:11 Dose: 3 ml Arformoterol Tartrate (Brovana) 15 mcg IH [id number] [facility] Last Admin: 12/20/17 07:52 Dose: 15 mcg Atorvastatin Calcium (Lipitor) 10 mg PO DIN [facility] Last Admin: 12/18/17 17:19 Dose: Not Given Calcium Carbonate (Caltrate) 600 mg PO BID [facility] Last Admin: 12/20/17 10:02 Dose: 600 mg Collagenase (Santyl) 1 gm TOP DAILY [facility] Last Admin: 12/18/17 09:29 Dose: 1 applic Al Hydrox/Mg Hydrox/Simethicone 30 ml/Diphenhydramine HCl 75 mg/Lidocaine 30 ml 0 ml PO Q2H PRN PRN Reason: MOUTH/THROAT PAIN Docusate Sodium (Colace) 200 mg PO BID [facility] Last Admin: 12/19/17 11:36 Dose: Not Given Enoxaparin Sodium (Lovenox) 30 mg SC DAILY [facility] PRN Reason: Protocol Last Admin: 12/20/17 10:01 Dose: 30 mg Folic Acid (Folic Acid) 1 mg PO BID [facility] Last Admin: 12/20/17 10:01 Dose: 1 mg Furosemide (Lasix) 40 mg IVP DAILY [facility] Dextrose/Sodium Chloride (Dextrose 5%/0.45% Ns 1000 Ml) 1,000 mls @ 85 mls/hr IV .[id number] [facility] Last Admin: 12/19/17 23:02 Dose: 85 mls/hr Vancomycin HCl (Vancomycin 1gm) 1 gm in 250 mls @ 167 mls/hr IVPB Q12H [facility] PRN Reason: Protocol Stop: 12/21/17 13:46 Last Admin: 12/20/17 02:32 Dose: 167 mls/hr Lactic Acid (Lac-Hydrin 12% Cream (140 G)) 1 ea TOP DAILY [facility] Last Admin: 12/18/17 09:34 Dose: Not Given Levalbuterol HCl (Xopenex) 0.63 mg IH [id number] PRN PRN Reason: Shortness of Breath Last Admin: 12/20/17 13:11 Dose: 0.63 mg Lidocaine (Lidocaine 5%) 0 gm TOP TID [facility] Last Admin: 12/18/17 17:19 Dose: Not Given Magnesium Oxide (Mag-Ox) 400 mg PO BID [facility] Stop: 12/20/17 23:59 Last Admin: 12/20/17 10:03 Dose: 400 mg Megestrol Acetate (Megace) 40 mg PO DAILY [facility] Last Admin: 12/18/17 09:28 Dose: Not Given Methylprednisolone (Solu-Medrol) 40 mg IVP Q8 [facility] Last Admin: 12/20/17 15:56 Dose: 40 mg Metoprolol Tartrate (Lopressor) 5 mg IVP Q6 [facility] Last Admin: 12/20/17 06:10 Dose: 5 mg Mirtazapine (Remeron) 15 mg PO HS [facility] Last Admin: 12/19/17 21:52 Dose: Not Given Non-Formulary Medication (Dimethicone [Proshield Plus Skin Protectant]) 1 applic TOP DAILY [facility] Last Admin: 12/18/17 09:27 Dose: Not Given Ondansetron HCl (Zofran Tab) 4 mg PO Q6 PRN PRN Reason: Nausea/Vomiting Last Admin: 12/15/17 15:18 Dose: 4 mg Pantoprazole Sodium (Protonix Ec Tab) 40 mg PO 0600 [facility] Last Admin: 12/20/17 06:04 Dose: Not Given Polyethylene Glycol (Miralax) 17 gm PO BID [facility] Last Admin: 12/20/17 10:03 Dose: 17 gm Potassium Phos/Sodium Phos (Neutra-Phos) 1 pkt PO TID [facility] Last Admin: 12/20/17 10:04 Dose: 1 pkt Potassium Phos/Sodium Phos (Neutra-Phos) 1 pkt PO TID [facility] Stop: 12/20/17 23:00 Saliva Substitute (Saliva Substitute) 0 ml PO WM [facility] Last Admin: 12/18/17 17:19 Dose: Not Given Vitamin A (Vitamin A & D Oint Ud Foilpak) 1 ea TOP TID [facility] Last Admin: 12/18/17 17:28 Dose: 1 ea Zolpidem Tartrate (Ambien) 5 mg PO HS PRN; Protocol PRN Reason: Insomnia Last Admin: 12/15/17 22:29 Dose: 5 mg - Labs Labs: 12/20/17 05:30 12/20/17 05:30 PT 13.6 SECONDS (9.4-12.5) H 12/20/17 07:11 INR 1.18 12/20/17 07:11 APTT 30.0 Seconds (25.1-36.5) 12/19/17 06:15 - Additional Findings Additional findings: - Constitutional Appears: Non-toxic - Head Exam Head Exam: ATRAUMATIC, NORMOCEPHALIC - Eye Exam Eye Exam: EOMI, PERRL. absent: Conjunctival injection, Nystagmus, Scleral icterus Pupil Exam: NORMAL ACCOMODATION, PERRL. absent: Irregular, Unequal - ENT Exam ENT Exam: Mucous Membranes Moist - Neck Exam Neck Exam: Full ROM - Respiratory Exam Respiratory Exam: Clear to Ausculation Bilateral, NORMAL BREATHING PATTERN. absent: Accessory Muscle Use, Rhonchi, Wheezes - Cardiovascular Exam Cardiovascular Exam: RRR, +S1, +S2. absent: Murmur - GI/Abdominal Exam GI & Abdominal Exam: Soft, Normal Bowel Sounds. absent: Firm, Guarding, Rigid, Tenderness, Mass, Organomegaly PEG tube in place, dressing clean, dry, intact, no bleeding noted - Extremities Exam Extremities Exam: Pedal Edema - Back Exam Additional comments: + sacral ulcer - Neurological Exam Neurological Exam: Alert, Awake - Psychiatric Exam Psychiatric exam: Depressed - Skin Skin Exam: Dry, Normal Color, Warm Assessment and Plan - Assessment and Plan (Free Text) Assessment: 72 year old male with PMH stage IV NSCLC (with bony metastases, diagnosed last month, treated with palliative radiation by Dr. Vega), COPD, R tibial pathological fx, sacral decubitus ulcer stage IV, admitted for sepsis, failure to thrive. He was recently diagnosed with lung biopsy and thoracentesis by Dr. Chandler last month. 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 Repeat blood cultures neg to date. -On vanc and merem -Echo 12/13 showed EF 51.5%. Right ventricle moderately dilated. RV systolic function mildly-moderately reduced. Mod pulm HTN. No vegetations -ID on board. appreciate recs. Failure to thrive: -Likely secondary to worsening tumor burden, pain, infection, decubitus ulcer -PEG tube placed. bleeding noted this AM at dressing site, likely due to patient pulling on it. Will resume feeds likely tomorrow as per GI, if no bleeding. NSCLC Stage IV -He is s/p first round of carboplatin and pemetrexed -Dr. Vega to continue radiation to the R tibia -Received Aredia at infusion clinic prior to admission, will be able to continue as an outpatient once he has stabilized Hypokalemia: - resolved - monitor Normocytic Anemia: -Likely due to anemia of chronic disease, no obvious signs of bleeding at this time -H/H is stable -Will continue to monitor R Tibial and foot pain: -He is s/p repair by Dr. Fuller -We will continue 5% topical lidocaine ointment TID for his continuing pain -Oxycodone 5 mg q6h PRN for pain -Nurse instructed to use mulipodus boots (as given by Podiatry) and Amlactin for xerosis of foot. -Podiatry consulted, appreciate recs Sacral Decubitus Ulcer: -Per surgery, his ulcer is unstageable at this time -Q2 turns, air mattress, BID santyl application, multipodus boots ordered -Out of bed to chair twice daily, requested nursing obtain and use donut pad while he is in the chair DVT/GI PPX: Lovenox and protonix Case seen and discussed with Dr. Wolf
--- NOTE | 2017-12-20 20:55 | PN ---
Copied To: Judit Dent MD Attending MD: Judit Dent MD DATE: 12/20/2017 PULMONARY PROGRESS NOTE REFERRING PHYSICIAN: Adolfo Durbin MD. SUBJECTIVE: The patient is lying in the bed, head at 45 degrees, on high flow reservoir oxygen. Night was unremarkable. Unable to clear pulmonary secretions. No hemoptysis. No hematemesis. No hematuria. No diarrhea reported. PHYSICAL EXAMINATION: GENERAL: In no acute distress. VITAL SIGNS: Temperature is 98, heart rate is 91, respiratory rate is 18, blood pressure 140/65, pulse ox of 98% on 15 liter nonrebreather. HEENT: Moist mucous membranes. NECK: Supple. LUNGS: Have decreased breath sounds. The left lung with scattered rhonchi. HEART: S1 and S2. ABDOMEN: Soft and nontender. G-tube area looks okay. EXTREMITIES: There is no edema. NEUROLOGIC: Awake and alert. Follows simple commands. MEDICATIONS: He is on Mucomyst inhaled every 6 hours, Ambien 5 mg at bedtime p.r.n., Brovana inhaled twice a day, calcium carbonate 600 mg twice a day, Colace 200 mg twice a day, IV fluid D5 half-normal saline 85 mL/hour, folic acid 1 mg daily, Lasix 40 mg daily, lidocaine to affected area, Lipitor 10 mg daily, metoprolol tartrate 5 mg every 6 hours, Lovenox 30 mg subcu daily, Megace 40 mg daily, MiraLax 17 g twice a day, Neutra-Phos one pack three times a day, Protonix 40 mg daily, Remeron 15 mg at bedtime, Santyl 1 g daily, Solu-Medrol 40 mg every 8 hours, Tylenol p.r.n., Xopenex inhaled every 6 hours p.r.n., and Zofran p.r.n. basis. LABORATORY DATA: Shows hemoglobin 8.2, hematocrit 26.2, WBC 9.7, platelet count is 220. INR 1.18. Sodium 134, potassium 3.6, chloride 95, bicarbonate 38, BUN 7, creatinine 0.3, glucose 143, calcium 7.4, phosphorus is 1.7, magnesium 1.9. Repeat blood cultures, there is no growth. Chest x-ray done this morning show little better aeration of the left upper lobe, still has collapsed left lower lobe. IMPRESSION AND PLAN: Metastatic lung cancer involving the bones, vertebra, status post radiation therapy, being on chemotherapy, also a pathologic fracture of the right tibia requiring surgery; obstructive lung disease, collapsed left lung with mucous plugging; decubitus ulcer; oropharyngeal dysphagia, has a gastrostomy tube, malnourished. I spoke to patient and daughter at bedside. I had a long discussion, requested if I can help him with nasopharyngeal suction to clear secretion, also offered bronchoscopy, but the patient flat out refused. He still wants to be full code including intubation and resuscitation. I spoke to nursing staff and suggested to decrease FiO2 of 10 L instead of 15 L and titrate FiO2 to pule ox 90. I spoke respiratory therapist to continue to offer suctioning including oral and nasal, pulmonary toilet, incentive spirometry. Continue steroids. Continue antibiotics. Continue inhaled bronchodilators. Overall, poor prognosis. Case also discussed with floor THORACIC SURGEON for further care. Thank you and we will follow with you. Judit Dent MD
[2017-12-20] MEDS: Dextrose 5%/0.45% NS 1,000 ML IV SCH (22:59)
[2017-12-21] MEDS: Metoprolol 1 mg/ml Inj IVP SCH ×4 (00:27→18:20)
[2017-12-21] MEDS: Vancomycin 1gm in NS 250ml 1 GM/250 ML BAG IVPB SCH ×2 (01:08→14:36)
[2017-12-21] MEDS: Acetylcysteine 20% Inhal Soln (4ml) IH SCH ×4 (02:45→19:22)
[2017-12-21] MEDS: MethylPREDNISolone 40 mg Vial IVP SCH ×3 (05:26→22:30)
[2017-12-21] MEDS: Dextrose 5%/0.45% NS 1,000 ML IV SCH (05:43)
[2017-12-21] MEDS: Pantoprazole 40 mg EC Tab PO SCH (05:57)
[2017-12-21 07:02] LABS: HEMOGLOBIN 8.1 g/dL (14.0-18.0); MEAN CELL VOLUME 92.3 fl (80.0-105.0); MEAN CORPUSCULAR HEMOGLOBIN 29.6 pg (25.0-35.0); MEAN PLATELET VOLUME 10.1 fl (7.0-11.0); RBC 2.74 10^6/uL (3.5-6.1); RED CELL DISTRIBUTION WIDTH 16.6 % (11.5-14.5); WHITE BLOOD COUNT 8.2 10^3/ul (4.5-11.0)
--- NOTE | 2017-12-21 07:10 | CP.PCM.PN ---
Subjective - Date & Time of Evaluation Date of Evaluation: 12/21/17 Time of Evaluation: 06:10 - Subjective Subjective: awake, alert, on non rebreather mask Reason for consultation: Cardiac evaluation for SVT, history of non-small cell lung cancer with bone metastasis, Seen and examined by me and Dr. Pro Objective - Vital Signs/Intake and Output Vital Signs (last 24 hours): Temp Pulse Resp BP Pulse Ox 98.0 F 90 18 143/69 96 12/20/17 17:12 12/21/17 05:26 12/20/17 17:12 12/21/17 05:26 12/20/17 17:12 Intake and Output: 12/21/17 12/21/17 06:59 18:59 Intake Total 300 Output Total 2825 Balance -2525 - Medications Medications: Current Medications Acetaminophen (Tylenol 325mg Tab) 650 mg PO Q6H PRN PRN Reason: PAIN/FEVER Last Admin: 12/20/17 18:08 Dose: 650 mg Acetylcysteine (Acetylcysteine 20%) 3 ml IH Q6 [facility] Last Admin: 12/21/17 02:45 Dose: Not Given Arformoterol Tartrate (Brovana) 15 mcg IH [id number] [facility] Last Admin: 12/20/17 20:38 Dose: 15 mcg Atorvastatin Calcium (Lipitor) 10 mg PO DIN [facility] Last Admin: 12/20/17 18:09 Dose: 10 mg Calcium Carbonate (Caltrate) 600 mg PO BID [facility] Last Admin: 12/20/17 18:09 Dose: 600 mg Collagenase (Santyl) 1 gm TOP DAILY [facility] Last Admin: 12/18/17 09:29 Dose: 1 applic Al Hydrox/Mg Hydrox/Simethicone 30 ml/Diphenhydramine HCl 75 mg/Lidocaine 30 ml 0 ml PO Q2H PRN PRN Reason: MOUTH/THROAT PAIN Docusate Sodium (Colace) 200 mg PO BID [facility] Last Admin: 12/20/17 18:09 Dose: Not Given Enoxaparin Sodium (Lovenox) 30 mg SC DAILY [facility] PRN Reason: Protocol Last Admin: 12/20/17 10:01 Dose: 30 mg Folic Acid (Folic Acid) 1 mg PO BID [facility] Last Admin: 12/20/17 18:09 Dose: 1 mg Furosemide (Lasix) 40 mg IVP DAILY [facility] Dextrose/Sodium Chloride (Dextrose 5%/0.45% Ns 1000 Ml) 1,000 mls @ 85 mls/hr IV .[id number] [facility] Last Admin: 12/21/17 05:43 Dose: 85 mls/hr Vancomycin HCl (Vancomycin 1gm) 1 gm in 250 mls @ 167 mls/hr IVPB Q12H [facility] PRN Reason: Protocol Stop: 12/21/17 13:46 Last Admin: 12/21/17 01:08 Dose: 167 mls/hr Lactic Acid (Lac-Hydrin 12% Cream (140 G)) 1 ea TOP DAILY [facility] Last Admin: 12/18/17 09:34 Dose: Not Given Levalbuterol HCl (Xopenex) 0.63 mg IH [id number] PRN PRN Reason: Shortness of Breath Last Admin: 12/20/17 13:11 Dose: 0.63 mg Lidocaine (Lidocaine 5%) 0 gm TOP TID [facility] Last Admin: 12/18/17 17:19 Dose: Not Given Megestrol Acetate (Megace) 40 mg PO DAILY [facility] Last Admin: 12/18/17 09:28 Dose: Not Given Methylprednisolone (Solu-Medrol) 40 mg IVP Q8 [facility] Last Admin: 12/21/17 05:26 Dose: 40 mg Metoprolol Tartrate (Lopressor) 5 mg IVP Q6 [facility] Last Admin: 12/21/17 05:26 Dose: 5 mg Mirtazapine (Remeron) 15 mg PO HS [facility] Last Admin: 12/20/17 21:04 Dose: 15 mg Non-Formulary Medication (Dimethicone [Proshield Plus Skin Protectant]) 1 applic TOP DAILY [facility] Last Admin: 12/20/17 10:00 Dose: Not Given Ondansetron HCl (Zofran Tab) 4 mg PO Q6 [facility]N PRN Reason: Nausea/Vomiting Last Admin: 12/15/17 15:18 Dose: 4 mg Pantoprazole Sodium (Protonix Ec Tab) 40 mg PO 0600 [facility] Last Admin: 12/21/17 05:57 Dose: 40 mg Polyethylene Glycol (Miralax) 17 gm PO BID [facility] Last Admin: 12/20/17 18:12 Dose: 17 gm Potassium Phos/Sodium Phos (Neutra-Phos) 1 pkt PO TID [facility] Last Admin: 12/20/17 18:13 Dose: 1 pkt Saliva Substitute (Saliva Substitute) 0 ml PO WM [facility] Last Admin: 12/18/17 17:19 Dose: Not Given Vitamin A (Vitamin A & D Oint Ud Foilpak) 1 ea TOP TID [facility] Last Admin: 12/18/17 17:28 Dose: 1 ea Zolpidem Tartrate (Ambien) 5 mg PO HS PRN; Protocol PRN Reason: Insomnia Last Admin: 12/20/17 21:03 Dose: 5 mg - Labs Labs: 12/20/17 05:30 12/20/17 05:30 PT 13.6 SECONDS (9.4-12.5) H 12/20/17 07:11 INR 1.18 12/20/17 07:11 APTT 30.0 Seconds (25.1-36.5) 12/19/17 06:15 - Constitutional Appears: No Acute Distress - ENT Exam ENT Exam: Mucous Membranes Dry - Respiratory Exam Respiratory Exam: Decreased Breath Sounds, Rhonchi - Cardiovascular Exam Cardiovascular Exam: REGULAR RHYTHM, +S1, +S2 Additional comments: right chest port /accessed - GI/Abdominal Exam GI & Abdominal Exam: Soft, Normal Bowel Sounds Additional comments: PEG - Extremities Exam Additional comments: 2-3+ edema - Neurological Exam Neurological Exam: Alert, Awake - Psychiatric Exam Psychiatric exam: Normal Affect - Skin Skin Exam: Dry, Warm Additional comments: sacral ulcer Assessment and Plan - Assessment and Plan (Free Text) Assessment: A 72 year old male who came in to the ER due to failure to thrive and lightheadedness. Patient has history of smoking,non-small cell lung cancer with bone mets, right tibial pathological fracture,11/14/17 had right tibial nail and catrachito placement, sacral ulcer stage 4. low WBC. today, had episode of SVT. Electrolyte related Potassium 2.8. 12 lead EKG normal. 12/13/17- ECHO LVEF 50%, moderately dilated RV,moderately reduced systolic function, moderate pulmonary hypertension. Blood culture positive for negative coagulase staphylococcus.ID on consult. IV antibiotics. PEG inserted. Plan: To start tube feeding today, tolerated water flushes On non-rebreather mask Oral care, patient NPO for dysphagia Continue IV fluids for hydration Telemetry NSR, no episodes of SVT Replenish potassium as needed Cardiac status stable Blood pressure and heart rate controlled Continue IV antibiotics per ID. Continue current treatment Continue current medications Followed up by Oncology Pulmonary on consult Discontinue telemetry Discharge planning Will follow up Plan and treatment discussed with Dr. Pro
--- NOTE | 2017-12-21 07:11 | CP.PCM.PN ---
<Terrie Gordon - Last Filed: 12/21/17 14:08> Subjective - Date & Time of Evaluation Date of Evaluation: 12/21/17 Time of Evaluation: 07:25 - Subjective Subjective: Terrie Gordon DO, PGY-2: GI Progress Note Patient was seen and examined at bedside. He offers no complaints. PEG tube dressing is clean and intact. He has been started on PEG tube feedings. No adverse events noted overnight. Objective - Vital Signs/Intake and Output Vital Signs (last 24 hours): Temp Pulse Resp BP Pulse Ox 98.0 F 90 18 143/69 96 12/20/17 17:12 12/21/17 05:26 12/20/17 17:12 12/21/17 05:26 12/20/17 17:12 Intake and Output: 12/21/17 12/21/17 06:59 18:59 Intake Total 300 Output Total 2825 Balance -2525 - Medications Medications: Current Medications Acetaminophen (Tylenol 325mg Tab) 650 mg PO Q6H PRN PRN Reason: PAIN/FEVER Last Admin: 12/20/17 18:08 Dose: 650 mg Acetylcysteine (Acetylcysteine 20%) 3 ml IH Q6 [facility] Last Admin: 12/21/17 02:45 Dose: Not Given Arformoterol Tartrate (Brovana) 15 mcg IH [id number] [facility] Last Admin: 12/20/17 20:38 Dose: 15 mcg Atorvastatin Calcium (Lipitor) 10 mg PO DIN [facility] Last Admin: 12/20/17 18:09 Dose: 10 mg Calcium Carbonate (Caltrate) 600 mg PO BID [facility] Last Admin: 12/20/17 18:09 Dose: 600 mg Collagenase (Santyl) 1 gm TOP DAILY [facility] Last Admin: 12/18/17 09:29 Dose: 1 applic Al Hydrox/Mg Hydrox/Simethicone 30 ml/Diphenhydramine HCl 75 mg/Lidocaine 30 ml 0 ml PO Q2H PRN PRN Reason: MOUTH/THROAT PAIN Docusate Sodium (Colace) 200 mg PO BID [facility] Last Admin: 12/20/17 18:09 Dose: Not Given Enoxaparin Sodium (Lovenox) 30 mg SC DAILY [facility] PRN Reason: Protocol Last Admin: 12/20/17 10:01 Dose: 30 mg Folic Acid (Folic Acid) 1 mg PO BID [facility] Last Admin: 12/20/17 18:09 Dose: 1 mg Furosemide (Lasix) 40 mg IVP DAILY [facility] Dextrose/Sodium Chloride (Dextrose 5%/0.45% Ns 1000 Ml) 1,000 mls @ 85 mls/hr IV .[id number] [facility] Last Admin: 12/21/17 05:43 Dose: 85 mls/hr Vancomycin HCl (Vancomycin 1gm) 1 gm in 250 mls @ 167 mls/hr IVPB Q12H [facility] PRN Reason: Protocol Stop: 12/21/17 13:46 Last Admin: 12/21/17 01:08 Dose: 167 mls/hr Lactic Acid (Lac-Hydrin 12% Cream (140 G)) 1 ea TOP DAILY [facility] Last Admin: 12/18/17 09:34 Dose: Not Given Levalbuterol HCl (Xopenex) 0.63 mg IH [id number] PRN PRN Reason: Shortness of Breath Last Admin: 12/20/17 13:11 Dose: 0.63 mg Lidocaine (Lidocaine 5%) 0 gm TOP TID [facility] Last Admin: 12/18/17 17:19 Dose: Not Given Megestrol Acetate (Megace) 40 mg PO DAILY [facility] Last Admin: 12/18/17 09:28 Dose: Not Given Methylprednisolone (Solu-Medrol) 40 mg IVP Q8 [facility] Last Admin: 12/21/17 05:26 Dose: 40 mg Metoprolol Tartrate (Lopressor) 5 mg IVP Q6 [facility] Last Admin: 12/21/17 05:26 Dose: 5 mg Mirtazapine (Remeron) 15 mg PO HS [facility] Last Admin: 12/20/17 21:04 Dose: 15 mg Non-Formulary Medication (Dimethicone [Proshield Plus Skin Protectant]) 1 applic TOP DAILY [facility] Last Admin: 12/20/17 10:00 Dose: Not Given Ondansetron HCl (Zofran Tab) 4 mg PO Q6 PRN PRN Reason: Nausea/Vomiting Last Admin: 12/15/17 15:18 Dose: 4 mg Pantoprazole Sodium (Protonix Ec Tab) 40 mg PO 0600 [facility] Last Admin: 12/21/17 05:57 Dose: 40 mg Polyethylene Glycol (Miralax) 17 gm PO BID [facility] Last Admin: 12/20/17 18:12 Dose: 17 gm Potassium Phos/Sodium Phos (Neutra-Phos) 1 pkt PO TID [facility] Last Admin: 12/20/17 18:13 Dose: 1 pkt Saliva Substitute (Saliva Substitute) 0 ml PO WM [facility] Last Admin: 12/18/17 17:19 Dose: Not Given Vitamin A (Vitamin A & D Oint Ud Foilpak) 1 ea TOP TID [facility] Last Admin: 12/18/17 17:28 Dose: 1 ea Zolpidem Tartrate (Ambien) 5 mg PO HS PRN; Protocol PRN Reason: Insomnia Last Admin: 12/20/17 21:03 Dose: 5 mg - Labs Labs: 12/20/17 05:30 12/20/17 05:30 PT 13.6 SECONDS (9.4-12.5) H 12/20/17 07:11 INR 1.18 12/20/17 07:11 APTT 30.0 Seconds (25.1-36.5) 12/19/17 06:15 - Constitutional Appears: No Acute Distress, Cachectic - Head Exam Head Exam: ATRAUMATIC, NORMOCEPHALIC - Eye Exam Eye Exam: EOMI, Normal appearance - ENT Exam ENT Exam: Mucous Membranes Dry - Neck Exam Neck Exam: Normal Inspection - Respiratory Exam Respiratory Exam: NORMAL BREATHING PATTERN. absent: Accessory Muscle Use - Cardiovascular Exam Cardiovascular Exam: RRR, +S1, +S2 - GI/Abdominal Exam GI & Abdominal Exam: Soft, Normal Bowel Sounds. absent: Tenderness, Rebound - Extremities Exam Extremities Exam: Normal Inspection. absent: Calf Tenderness - Neurological Exam Neurological Exam: Alert, Awake - Psychiatric Exam Psychiatric exam: Depressed - Skin Skin Exam: Dry, Intact, Normal Color, Warm Assessment and Plan - Assessment and Plan (Free Text) Assessment: 72 year old male with a past medical history of stage IV NSCLC with bony metastases, COPD, pathologic right tibial fracture, an unstageable sacral decubitus ulcer who was admitted for failure to thrive and progressively worsening dysphagia. Upon admission the pateint was found to have gram positive bacteremia, an unstageable sacral ulcer, and a left sided pneumonia. GI was consulted for failure to thrive and placement of a PEG tube. Currently, the patient is POD #1. There is no further bleeding from PEg tube. We started him on Jevity 1.2 continuous infusion 25 ml/hr with a rate to increase at 10 ml/ hr with a goal of 60 ml/hr and to check residual q6h. He can be given his PO medications via PEG tube and the PEG tube will be flushed with 50 mL of NS q6h for hydration and to maintain tube patency. This was discussed with the primary team and his nurse. We will continue to monitor the patient closely. Case was reviewed and discussed with attending physician, Dr. Levine <Sam Levine V - Last Filed: 12/21/17 23:37> Objective - Vital Signs/Intake and Output Vital Signs (last 24 hours): Temp Pulse Resp BP Pulse Ox 97.5 F L 95 H 18 111/61 96 12/21/17 18:00 12/21/17 18:20 12/21/17 18:00 12/21/17 18:20 12/21/17 08:27 - Medications Medications: Current Medications Acetaminophen (Tylenol 325mg Tab) 650 mg PO Q6H PRN PRN Reason: PAIN/FEVER Last Admin: 12/20/17 18:08 Dose: 650 mg Acetylcysteine (Acetylcysteine 20%) 3 ml IH Q6 [facility] Last Admin: 12/21/17 19:22 Dose: 3 ml Arformoterol Tartrate (Brovana) 15 mcg IH [id number] [facility] Last Admin: 12/21/17 19:22 Dose: 15 mcg Atorvastatin Calcium (Lipitor) 10 mg PO DIN [facility] Last Admin: 12/21/17 18:20 Dose: 10 mg Calcium Carbonate (Caltrate) 600 mg PO BID [facility] Last Admin: 12/21/17 18:19 Dose: 600 mg Collagenase (Santyl) 1 gm TOP DAILY [facility] Last Admin: 12/21/17 11:11 Dose: 1 applic Al Hydrox/Mg Hydrox/Simethicone 30 ml/Diphenhydramine HCl 75 mg/Lidocaine 30 ml 0 ml PO Q2H PRN PRN Reason: MOUTH/THROAT PAIN Docusate Sodium (Colace) 200 mg PO BID [facility] Last Admin: 12/21/17 18:12 Dose: Not Given Enoxaparin Sodium (Lovenox) 30 mg SC DAILY [facility] PRN Reason: Protocol Last Admin: 12/21/17 11:05 Dose: 30 mg Folic Acid (Folic Acid) 1 mg PO BID [facility] Last Admin: 08/02/18 18:20 Dose: 1 mg Furosemide (Lasix) 40 mg IVP DAILY [facility] Last Admin: 12/21/17 11:05 Dose: 40 mg Dextrose/Sodium Chloride (Dextrose 5%/0.45% Ns 1000 Ml) 1,000 mls @ 85 mls/hr IV .[id number] [facility] Last Admin: 12/21/17 05:43 Dose: 85 mls/hr Lactic Acid (Lac-Hydrin 12% Cream (140 G)) 1 ea TOP DAILY [facility] Last Admin: 12/21/17 11:12 Dose: 1 appl Levalbuterol HCl (Xopenex) 0.63 mg IH [id number] PRN PRN Reason: Shortness of Breath Last Admin: 12/21/17 19:22 Dose: 0.63 mg Lidocaine (Lidocaine 5%) 0 gm TOP TID [facility] Last Admin: 12/21/17 18:13 Dose: 1 applic Megestrol Acetate (Megace) 40 mg PO DAILY [facility] Last Admin: 12/21/17 11:06 Dose: 40 mg Methylprednisolone (Solu-Medrol) 40 mg IVP Q8 [facility] Last Admin: 12/21/17 22:30 Dose: 40 mg Metoprolol Tartrate (Lopressor) 5 mg IVP Q6 [facility] Last Admin: 12/21/17 18:20 Dose: 5 mg Mirtazapine (Remeron) 15 mg PO HS [facility] Last Admin: 12/21/17 22:31 Dose: 15 mg Non-Formulary Medication (Dimethicone [Proshield Plus Skin Protectant]) 1 applic TOP DAILY [facility] Last Admin: 12/21/17 10:54 Dose: Not Given Ondansetron HCl (Zofran Tab) 4 mg PO Q6 PRN PRN Reason: Nausea/Vomiting Last Admin: 12/15/17 15:18 Dose: 4 mg Pantoprazole Sodium (Protonix Ec Tab) 40 mg PO 0600 [facility] Last Admin: 12/21/17 05:57 Dose: 40 mg Polyethylene Glycol (Miralax) 17 gm PO BID [facility] Last Admin: 12/21/17 18:21 Dose: 17 gm Potassium Phos/Sodium Phos (Neutra-Phos) 1 pkt PO TID [facility] Last Admin: 12/21/17 18:21 Dose: 1 pkt Saliva Substitute (Saliva Substitute) 0 ml PO WM [facility] Last Admin: 12/21/17 18:15 Dose: 1 ml Vitamin A (Vitamin A & D Oint Ud Foilpak) 1 ea TOP TID [facility] Last Admin: 12/21/17 18:22 Dose: 1 ea Zolpidem Tartrate (Ambien) 5 mg PO HS PRN; Protocol PRN Reason: Insomnia Last Admin: 12/20/17 21:03 Dose: 5 mg - Labs Labs: 12/21/17 06:00 12/20/17 05:30 PT 13.6 SECONDS (9.4-12.5) H 12/20/17 07:11 INR 1.18 12/20/17 07:11 APTT 30.0 Seconds (25.1-36.5) 12/19/17 06:15 Attending/Attestation - Attestation I have personally seen and examined this patient.: Yes I have fully participated in the care of the patient.: Yes I have reviewed all pertinent clinical information, including history, physical exam and plan: Yes Notes (Text): This is an addendum to GI progress report dictated by the Community Integration Specialist.The patient was seen and examined earlier. Medical records, lab studies, imagings were reviewed. Last 24 hours events reviewed. Agreed with the above treatment plan as outlined in Community Integration Specialist 's notes with the addition of the following PICC site was evaluated and appeared clean Started on GT feeding Discussed with patient's daughter who was at bedside 12/21/17 23:36
[2017-12-21] MEDS: Saliva Substitute 44.3 ML PO SCH ×3 (08:00→18:15)
[2017-12-21] MEDS ORDERED: Potassium Phosphate 15 MMOLE in Sodium Chloride 0.9% 250 ML IVPB ONE (08:31)
[2017-12-21] MEDS: Arformoterol 15 mcg/2 ml Inh Sol IH SCH ×2 (08:54→19:22)
[2017-12-21] MEDS: DIMETHICONE TOP SCH (10:54)
[2017-12-21] MEDS: Enoxaparin 30 mg Syringe SC SCH (11:05)
[2017-12-21] MEDS: Potassium & Sodium Phosphate PO SCH ×3 (11:06→18:21)
[2017-12-21] MEDS: POLYETHYLENE GLYCOL 3350 17 GM/Dose PACKET PO SCH ×2 (11:06→18:21)
[2017-12-21] MEDS: Lidocaine 5% Oint(35 gm) TOP SCH ×3 (11:09→18:13)
[2017-12-21] MEDS: Vitamins A & D Oint UD Foilpak TOP SCH ×3 (11:09→18:22)
[2017-12-21] MEDS: Collagenase 250 Units/gm Ointment(30 gm) TOP SCH (11:11)
[2017-12-21] MEDS: Ammonium Lactate 12% Cream (140 g) TOP SCH (11:12)
[2017-12-21] MEDS: Levalbuterol 0.63 MG/3 ML Inhal Soln UD IH PRN ×2 (14:35→19:22)
--- NOTE | 2017-12-21 15:36 | PN ---
Copied To: Barrera Purdy MD Attending MD: Barrera Purdy MD DATE: 12/21/2017 SUBJECTIVE: The patient is in bed, in no acute distress, nontoxic. The patient is seen earlier this morning. PHYSICAL EXAMINATION: VITAL SIGNS: Temperature is 98, blood pressure is 140/70, respiratory rate of 16. HEENT: Unremarkable. NECK: Supple. LUNGS: Have decreased breath sounds. HEART: Normal S1, S2. ABDOMEN: Soft, nontender. LABORATORY DATA: Laboratory examination reveals a white count of 8.2, hemoglobin of 8, platelets of 245. Chemistries are noted and microbiology reveals a coag-negative staph and repeat blood cultures are negative and review of orders reveals the patient has Solu-Medrol and IV vancomycin. ASSESSMENT AND PLAN: A 72-year-old male with sepsis with coagulase-negative Staphylococcus bacteremia, suspicious for a Port-A-Cath infection in a patient with unstageable stage IV sacral ulcer and metastatic non-small cell lung cancer, chronic obstructive lung disease and cachexia. Day #9 of vancomycin, would complete 10-14 days with last vancomycin trough of 11.4 on 12/14/2017. Review of medications reveals the patient at 0145 and 1345 hours. We will repeat a vancomycin trough level today at 1245 hours. We will follow with you. Barrera Purdy MD
--- NOTE | 2017-12-21 20:35 | CP.PCM.PN ---
Subjective - Date & Time of Evaluation Date of Evaluation: 12/21/17 Time of Evaluation: 20:31 - Subjective Subjective: Jacqui Keen, PGY2, Progress Note for Dr Wolf: Patient seen and examined at bedside. No acute events overnight. Patient still requiring NRB mask. Patient tried on 4L NC, O2 desat to 60%, put back on NRB. Denies fevers, chills, nausea, vomiting, abdominal pain, leg swelling. Objective - Vital Signs/Intake and Output Vital Signs (last 24 hours): Temp Pulse Resp BP Pulse Ox 97.5 F L 95 H 18 111/61 96 12/21/17 18:00 12/21/17 18:20 12/21/17 18:00 12/21/17 18:20 12/21/17 08:27 - Medications Medications: Current Medications Acetaminophen (Tylenol 325mg Tab) 650 mg PO Q6H PRN PRN Reason: PAIN/FEVER Last Admin: 12/20/17 18:08 Dose: 650 mg Acetylcysteine (Acetylcysteine 20%) 3 ml IH Q6 [facility] [place] Last Admin: 12/21/17 19:22 Dose: 3 ml Arformoterol Tartrate (Brovana) 15 mcg IH [id number] [facility] [place] Last Admin: 12/21/17 19:22 Dose: 15 mcg Atorvastatin Calcium (Lipitor) 10 mg PO DIN [facility] [place] Last Admin: 12/21/17 18:20 Dose: 10 mg Calcium Carbonate (Caltrate) 600 mg PO BID [facility] [place] Last Admin: 12/21/17 18:19 Dose: 600 mg Collagenase (Santyl) 1 gm TOP DAILY [facility] [place] Last Admin: 12/21/17 11:11 Dose: 1 applic Al Hydrox/Mg Hydrox/Simethicone 30 ml/Diphenhydramine HCl 75 mg/Lidocaine 30 ml 0 ml PO Q2H PRN PRN Reason: MOUTH/THROAT PAIN Docusate Sodium (Colace) 200 mg PO BID [facility] [place] Last Admin: 12/21/17 18:12 Dose: Not Given Enoxaparin Sodium (Lovenox) 30 mg SC DAILY [facility] [place] PRN Reason: Protocol Last Admin: 12/21/17 11:05 Dose: 30 mg Folic Acid (Folic Acid) 1 mg PO BID [facility] [place] Last Admin: 12/21/17 18:20 Dose: 1 mg Furosemide (Lasix) 40 mg IVP DAILY [facility] [place] Last Admin: 12/21/17 11:05 Dose: 40 mg Dextrose/Sodium Chloride (Dextrose 5%/0.45% Ns 1000 Ml) 1,000 mls @ 85 mls/hr IV .[id number] [facility] [place] Last Admin: 12/21/17 05:43 Dose: 85 mls/hr Lactic Acid (Lac-Hydrin 12% Cream (140 G)) 1 ea TOP DAILY [facility] [place] Last Admin: 12/21/17 11:12 Dose: 1 appl Levalbuterol HCl (Xopenex) 0.63 mg IH [id number] PRN PRN Reason: Shortness of Breath Last Admin: 12/21/17 19:22 Dose: 0.63 mg Lidocaine (Lidocaine 5%) 0 gm TOP TID [facility] [place] Last Admin: 12/21/17 18:13 Dose: 1 applic Megestrol Acetate (Megace) 40 mg PO DAILY [facility] [place] Last Admin: 12/21/17 11:06 Dose: 40 mg Methylprednisolone (Solu-Medrol) 40 mg IVP Q8 [facility] [place] Last Admin: 12/21/17 14:35 Dose: 40 mg Metoprolol Tartrate (Lopressor) 5 mg IVP Q6 [facility] [place] Last Admin: 12/21/17 18:20 Dose: 5 mg Mirtazapine (Remeron) 15 mg PO HS [facility] [place] Last Admin: 12/20/17 21:04 Dose: 15 mg Non-Formulary Medication (Dimethicone [Proshield Plus Skin Protectant]) 1 applic TOP DAILY [facility] [place] Last Admin: 12/21/17 10:54 Dose: Not Given Ondansetron HCl (Zofran Tab) 4 mg PO Q6 PRN PRN Reason: Nausea/Vomiting Last Admin: 12/15/17 15:18 Dose: 4 mg Pantoprazole Sodium (Protonix Ec Tab) 40 mg PO 0600 [facility] [place] Last Admin: 12/21/17 05:57 Dose: 40 mg Polyethylene Glycol (Miralax) 17 gm PO BID [facility] [place] Last Admin: 12/21/17 18:21 Dose: 17 gm Potassium Phos/Sodium Phos (Neutra-Phos) 1 pkt PO TID [facility] [place] Last Admin: 12/21/17 18:21 Dose: 1 pkt Saliva Substitute (Saliva Substitute) 0 ml PO WM [facility] [place] Last Admin: 12/21/17 18:15 Dose: 1 ml Vitamin A (Vitamin A & D Oint Ud Foilpak) 1 ea TOP TID [facility] Last Admin: 12/21/17 18:22 Dose: 1 ea Zolpidem Tartrate (Ambien) 5 mg PO HS PRN; Protocol PRN Reason: Insomnia Last Admin: 12/20/17 21:03 Dose: 5 mg - Labs Labs: 12/21/17 06:00 12/20/17 05:30 PT 13.6 SECONDS (9.4-12.5) H 12/20/17 07:11 INR 1.18 12/20/17 07:11 APTT 30.0 Seconds (25.1-36.5) 12/19/17 06:15 - Additional Findings Additional findings: - Constitutional Appears: Non-toxic - Head Exam Head Exam: ATRAUMATIC, NORMOCEPHALIC - Eye Exam Eye Exam: EOMI, PERRL. absent: Conjunctival injection, Nystagmus, Scleral icterus Pupil Exam: NORMAL ACCOMODATION, PERRL. absent: Irregular, Unequal - ENT Exam ENT Exam: Mucous Membranes Moist - Neck Exam Neck Exam: Full ROM - Respiratory Exam Respiratory Exam: decreased breath sounds, NORMAL BREATHING PATTERN. absent: Accessory Muscle Use on NRB - Cardiovascular Exam Cardiovascular Exam: RRR, +S1, +S2. absent: Murmur - GI/Abdominal Exam GI & Abdominal Exam: Soft, Normal Bowel Sounds. absent: Firm, Guarding, Rigid, Tenderness, Mass, Organomegaly PEG tube in place, dressing clean, dry, intact, no bleeding noted - Extremities Exam Extremities Exam: Pedal Edema - Back Exam Additional comments: + sacral ulcer - Neurological Exam Neurological Exam: Alert, Awake - Psychiatric Exam Psychiatric exam: Depressed - Skin Skin Exam: Dry, Normal Color, Warm Assessment and Plan - Assessment and Plan (Free Text) Assessment: 72 year old male with PMH stage IV NSCLC (with bony metastases, diagnosed last month, treated with palliative radiation by Dr. Vega), COPD, R tibial pathological fx, sacral decubitus ulcer stage IV, admitted for sepsis, failure to thrive. Patient is s/p PEG tube insertion, started feeds today: Sepsis: 2/2 port-a-cath vs sacral ulcer -Blood cultures (2/2) grew coag neg staph, sensitivities noted. Repeat blood cultures neg to date. -On vanc and merem -Echo 12/13 showed EF 51.5%. Right ventricle moderately dilated. RV systolic function mildly-moderately reduced. Mod pulm HTN. No vegetations -ID on board. appreciate recs. Failure to thrive: -Likely secondary to worsening tumor burden, pain, infection, decubitus ulcer -PEG tube placed. started feeds as per GI. monitor NSCLC Stage IV -He is s/p first round of carboplatin and pemetrexed -Dr. Vega to continue radiation to the R tibia -Received Aredia at infusion clinic prior to admission, will be able to continue as an outpatient once he has stabilized Hypokalemia: - resolved - monitor Hypophosphatemia: - repleted - monitor Normocytic Anemia: -Likely due to anemia of chronic disease, no obvious signs of bleeding at this time -H/H is stable -Will continue to monitor R Tibial and foot pain: -He is s/p repair by Dr. Fuller -We will continue 5% topical lidocaine ointment TID for his continuing pain -Oxycodone 5 mg q6h PRN for pain -Nurse instructed to use mulipodus boots (as given by Podiatry) and Amlactin for xerosis of foot. -Podiatry consulted, appreciate recs Sacral Decubitus Ulcer: -Per surgery, his ulcer is unstageable at this time -Q2 turns, air mattress, BID santyl application, multipodus boots ordered -Out of bed to chair twice daily, requested nursing obtain and use donut pad while he is in the chair DVT/GI PPX: Lovenox and protonix Case seen and discussed with Dr. Wolf
--- NOTE | 2017-12-21 20:44 | PN ---
Copied To: Judit Dent MD Attending MD: Judit Dent MD DATE: 12/21/2017 PULMONARY PROGRESS NOTE REFERRING PHYSICIAN: Adolfo Durbin MD. SUBJECTIVE: He is lying in the bed, head at 45 degree, on reservoir supplement oxygen, still refusing nasal and oral suction, but breathing is little better. Decreased cough, decreased sputum production. No nausea, no vomiting, no diarrhea. No leg pain or leg swelling. OBJECTIVE: GENERAL: In no acute distress. VITAL SIGNS: Temperature is 98, heart rate 95, respiratory rate 18, blood pressure 111/61, pulse ox 96% on room air. HEENT: Moist mucous membranes. Crowded airway. NECK: Supple. No JVD. LUNGS: Better airflow on the left. HEART: S1 and S2. ABDOMEN: Soft and nontender. No organomegaly. EXTREMITIES: No edema. NEUROLOGIC: Awake and alert. Follows simple command. MEDICATIONS: He is on Mucomyst inhaled every 6 hours, Ambien 5 mg at bedtime p.r.n., Brovana inhaled twice a day, calcium carbonate 600 mg twice a day, Colace 200 mg twice a day, folic acid 1 mg daily, Lasix 40 mg daily, lidocaine patch to affected area, Lipitor 10 mg daily, metoprolol tartrate 5 mg every 6 hours, Lovenox 30 mg subcutaneous daily, MiraLax every 12 hours, K-Phos 3 times a day, Remeron 15 mg at bedtime, Saliva Substitute, Santyl 1 g at affected area, Solu-Medrol 40 mg every 8 hours, Tylenol p.r.n., vitamin A and D to the affected area, Xopenex inhaled every 6 hours p.r.n., and Zofran p.r.n. basis. LABORATORY DATA: Shows hemoglobin 8.1, hematocrit 25.3, WBC 8.2, platelet count is 245. IMPRESSION AND PLAN: Metastatic lung cancer involving the bone, vertebra being on radiation and chemotherapy, had a pathological fracture of the right tibia requiring surgery, obstructive lung disease with collapsed left lung, mucous plugging, decubitus ulcer, oropharyngeal dysphagia, has a gastrostomy tube, started on nutrition. Spoke to nursing staff, may decrease FiO2 and titrate to pulse ox above 90%, keep head at 45 degrees, continue steroids, antibiotics, bronchodilators, out of bed to chair as possible. We will order chest x-ray in the morning. Thank you and we will follow with you. Judit Dent MD
[2017-12-22] MEDS: Metoprolol 1 mg/ml Inj IVP SCH ×2 (00:53→05:38)
[2017-12-22] MEDS: Dextrose 5%/0.45% NS 1,000 ML IV SCH (00:55)
[2017-12-22] MEDS: Acetylcysteine 20% Inhal Soln (4ml) IH SCH ×4 (01:48→19:52)
[2017-12-22] MEDS: MethylPREDNISolone 40 mg Vial IVP SCH (05:37)
[2017-12-22] MEDS: Pantoprazole 40 mg EC Tab PO SCH (05:39)
--- NOTE | 2017-12-22 07:21 | CP.PCM.PN ---
Subjective - Date & Time of Evaluation Date of Evaluation: 12/22/17 Time of Evaluation: 06:20 - Subjective Subjective: on non rebreather mask, awake, no distress Reason for consultation: Cardiac evaluation for SVT, history of non-small cell lung cancer with bone metastasis, Seen and examined by me and Dr. Pro Objective - Vital Signs/Intake and Output Vital Signs (last 24 hours): Temp Pulse Resp BP Pulse Ox 98.2 F 86 20 127/61 95 12/22/17 06:00 12/22/17 06:00 12/22/17 06:00 12/22/17 06:00 12/22/17 06:00 Intake and Output: 12/22/17 12/22/17 06:59 18:59 Intake Total 1020 Output Total 1675 Balance -655 - Medications Medications: Current Medications Acetaminophen (Tylenol 325mg Tab) 650 mg PO Q6H PRN PRN Reason: PAIN/FEVER Last Admin: 12/20/17 18:08 Dose: 650 mg Acetylcysteine (Acetylcysteine 20%) 3 ml IH Q6 [facility] Last Admin: 12/22/17 01:48 Dose: Not Given Arformoterol Tartrate (Brovana) 15 mcg IH [id number] [facility] Last Admin: 12/21/17 19:22 Dose: 15 mcg Atorvastatin Calcium (Lipitor) 10 mg PO DIN [facility] Last Admin: 12/21/17 18:20 Dose: 10 mg Calcium Carbonate (Caltrate) 600 mg PO BID [facility] Last Admin: 12/21/17 18:19 Dose: 600 mg Collagenase (Santyl) 1 gm TOP DAILY [facility] Last Admin: 12/21/17 11:11 Dose: 1 applic Al Hydrox/Mg Hydrox/Simethicone 30 ml/Diphenhydramine HCl 75 mg/Lidocaine 30 ml 0 ml PO Q2H PRN PRN Reason: MOUTH/THROAT PAIN Docusate Sodium (Colace) 200 mg PO BID [facility] Last Admin: 12/21/17 18:12 Dose: Not Given Enoxaparin Sodium (Lovenox) 30 mg SC DAILY [facility] PRN Reason: Protocol Last Admin: 12/21/17 11:05 Dose: 30 mg Folic Acid (Folic Acid) 1 mg PO BID [facility] Last Admin: 12/21/17 18:20 Dose: 1 mg Furosemide (Lasix) 40 mg IVP DAILY [facility] Last Admin: 12/21/17 11:05 Dose: 40 mg Dextrose/Sodium Chloride (Dextrose 5%/0.45% Ns 1000 Ml) 1,000 mls @ 85 mls/hr IV .[id number] [facility] Last Admin: 12/22/17 00:55 Dose: 85 mls/hr Lactic Acid (Lac-Hydrin 12% Cream (140 G)) 1 ea TOP DAILY [facility] Last Admin: 12/21/17 11:12 Dose: 1 appl Levalbuterol HCl (Xopenex) 0.63 mg IH [id number] PRN PRN Reason: Shortness of Breath Last Admin: 12/21/17 19:22 Dose: 0.63 mg Lidocaine (Lidocaine 5%) 0 gm TOP TID [facility] Last Admin: 12/21/17 18:13 Dose: 1 applic Megestrol Acetate (Megace) 40 mg PO DAILY [facility] Last Admin: 12/21/17 11:06 Dose: 40 mg Methylprednisolone (Solu-Medrol) 40 mg IVP Q8 [facility] Last Admin: 12/22/17 05:37 Dose: 40 mg Metoprolol Tartrate (Lopressor) 5 mg IVP Q6 [facility] Last Admin: 12/22/17 05:38 Dose: 5 mg Mirtazapine (Remeron) 15 mg PO HS [facility] Last Admin: 12/21/17 22:31 Dose: 15 mg Non-Formulary Medication (Dimethicone [Proshield Plus Skin Protectant]) 1 applic TOP DAILY [facility] Last Admin: 12/21/17 10:54 Dose: Not Given Ondansetron HCl (Zofran Tab) 4 mg PO Q6 PRN PRN Reason: Nausea/Vomiting Last Admin: 12/15/17 15:18 Dose: 4 mg Pantoprazole Sodium (Protonix Ec Tab) 40 mg PO 0600 [facility] Last Admin: 12/22/17 05:39 Dose: 40 mg Polyethylene Glycol (Miralax) 17 gm PO BID [facility] Last Admin: 12/21/17 18:21 Dose: 17 gm Potassium Phos/Sodium Phos (Neutra-Phos) 1 pkt PO TID [facility] Last Admin: 12/21/17 18:21 Dose: 1 pkt Saliva Substitute (Saliva Substitute) 0 ml PO WM [facility] Last Admin: 12/21/17 18:15 Dose: 1 ml Vitamin A (Vitamin A & D Oint Ud Foilpak) 1 ea TOP TID [facility] Last Admin: 12/21/17 18:22 Dose: 1 ea Zolpidem Tartrate (Ambien) 5 mg PO HS PRN; Protocol PRN Reason: Insomnia Last Admin: 12/20/17 21:03 Dose: 5 mg - Labs Labs: 12/21/17 06:00 12/20/17 05:30 PT 13.6 SECONDS (9.4-12.5) H 12/20/17 07:11 INR 1.18 12/20/17 07:11 APTT 30.0 Seconds (25.1-36.5) 12/19/17 06:15 - Constitutional Appears: No Acute Distress - Eye Exam Eye Exam: Normal appearance - ENT Exam ENT Exam: Mucous Membranes Dry - Respiratory Exam Respiratory Exam: Decreased Breath Sounds, NORMAL BREATHING PATTERN - Cardiovascular Exam Additional comments: right chest port/accessed - GI/Abdominal Exam GI & Abdominal Exam: Soft, Normal Bowel Sounds Additional comments: PEG to feeding - Extremities Exam Additional comments: 2 + edema - Neurological Exam Neurological Exam: Alert, Awake - Psychiatric Exam Psychiatric exam: Normal Affect - Skin Skin Exam: Dry, Warm Assessment and Plan - Assessment and Plan (Free Text) Assessment: A 72 year old male who came in to the ER due to failure to thrive and lightheadedness. Patient has history of smoking,non-small cell lung cancer with bone mets, right tibial pathological fracture,11/14/17 had right tibial nail and catrachito placement, sacral ulcer stage 4. low WBC. today, had episode of SVT. Electrolyte related Potassium 2.8. 12 lead EKG normal. 12/13/17- ECHO LVEF 50%, moderately dilated RV,moderately reduced systolic function, moderate pulmonary hypertension. Blood culture positive for negative coagulase staphylococcus.ID on consult. IV antibiotics. PEG inserted.started tube feeding. Plan: On non-rebreather mask Started tube feeding yesterday Oral care, patient NPO for dysphagia May discontinue IV fluids if tolerating tube feedings Telemetry NSR, no episodes of SVT Replenish potassium as needed Cardiac status stable Blood pressure and heart rate controlled Continue IV antibiotics per ID. Continue current treatment Continue current medications Followed up by Oncology Pulmonary on consult Discharge planning Will follow up Plan and treatment discussed with Dr. Pro
[2017-12-22 07:28] LABS: HEMOGLOBIN 8.1 g/dL (14.0-18.0); MEAN CELL VOLUME 93.2 fl (80.0-105.0); MEAN CORPUSCULAR HGB CONC 31.2 g/dl (31.0-37.0); RBC 2.79 10^6/uL (3.5-6.1); RED CELL DISTRIBUTION WIDTH 16.8 % (11.5-14.5); WHITE BLOOD COUNT 10.1 10^3/ul (4.5-11.0)
--- NOTE | 2017-12-22 07:45 | CP.PCM.PN ---
<Terrie Gordon - Last Filed: 12/22/17 12:44> Subjective - Date & Time of Evaluation Date of Evaluation: 12/22/17 Time of Evaluation: 07:25 - Subjective Subjective: Terrie Gordon DO, PGY-2: GI Progress Note for Dr. Levine Patient was seen and examined at bedside. Patient denies any complaints. Nurse reports patient had a large volume, watery bowel movement yesterday at 7:00 PM yesterday. We switched the patient from Levity 1.2 to Osmolite at a rate to 35 ml/hr and continue to check residuals every 6 hours. Otherwise, PEG tube site is clean and dressing has been taken off. Objective - Vital Signs/Intake and Output Vital Signs (last 24 hours): Temp Pulse Resp BP Pulse Ox 98.2 F 86 20 127/61 95 12/22/17 07:37 12/22/17 07:37 12/22/17 07:37 12/22/17 07:37 12/22/17 07:37 Intake and Output: 12/22/17 12/22/17 06:59 18:59 Intake Total 1020 Output Total 1675 Balance -655 - Medications Medications: Current Medications Acetaminophen (Tylenol 325mg Tab) 650 mg PO Q6H PRN PRN Reason: PAIN/FEVER Last Admin: 12/20/17 18:08 Dose: 650 mg Acetylcysteine (Acetylcysteine 20%) 3 ml IH Q6 [facility] Last Admin: 12/22/17 01:48 Dose: Not Given Arformoterol Tartrate (Brovana) 15 mcg IH [id number] [facility] Last Admin: 12/21/17 19:22 Dose: 15 mcg Atorvastatin Calcium (Lipitor) 10 mg PO DIN [facility] Last Admin: 12/21/17 18:20 Dose: 10 mg Calcium Carbonate (Caltrate) 600 mg PO BID [facility] Last Admin: 12/21/17 18:19 Dose: 600 mg Collagenase (Santyl) 1 gm TOP DAILY [facility] Last Admin: 12/21/17 11:11 Dose: 1 applic Al Hydrox/Mg Hydrox/Simethicone 30 ml/Diphenhydramine HCl 75 mg/Lidocaine 30 ml 0 ml PO Q2H PRN PRN Reason: MOUTH/THROAT PAIN Docusate Sodium (Colace) 200 mg PO BID [facility] Last Admin: 12/21/17 18:12 Dose: Not Given Enoxaparin Sodium (Lovenox) 30 mg SC DAILY [facility] PRN Reason: Protocol Last Admin: 12/21/17 11:05 Dose: 30 mg Folic Acid (Folic Acid) 1 mg PO BID [facility] Last Admin: 12/21/17 18:20 Dose: 1 mg Furosemide (Lasix) 40 mg IVP DAILY [facility] Last Admin: 12/21/17 11:05 Dose: 40 mg Dextrose/Sodium Chloride (Dextrose 5%/0.45% Ns 1000 Ml) 1,000 mls @ 85 mls/hr IV .[id number] [facility] Last Admin: 12/22/17 00:55 Dose: 85 mls/hr Lactic Acid (Lac-Hydrin 12% Cream (140 G)) 1 ea TOP DAILY [facility] Last Admin: 12/21/17 11:12 Dose: 1 appl Levalbuterol HCl (Xopenex) 0.63 mg IH [id number] PRN PRN Reason: Shortness of Breath Last Admin: 12/21/17 19:22 Dose: 0.63 mg Lidocaine (Lidocaine 5%) 0 gm TOP TID [facility] Last Admin: 12/21/17 18:13 Dose: 1 applic Megestrol Acetate (Megace) 40 mg PO DAILY [facility] Last Admin: 12/21/17 11:06 Dose: 40 mg Methylprednisolone (Solu-Medrol) 40 mg IVP Q8 [facility] Last Admin: 12/22/17 05:37 Dose: 40 mg Metoprolol Tartrate (Lopressor) 5 mg IVP Q6 [facility] Last Admin: 12/22/17 05:38 Dose: 5 mg Mirtazapine (Remeron) 15 mg PO HS [facility] Last Admin: 12/21/17 22:31 Dose: 15 mg Non-Formulary Medication (Dimethicone [Proshield Plus Skin Protectant]) 1 applic TOP DAILY [facility] Last Admin: 12/21/17 10:54 Dose: Not Given Ondansetron HCl (Zofran Tab) 4 mg PO Q6 PRN PRN Reason: Nausea/Vomiting Last Admin: 12/15/17 15:18 Dose: 4 mg Pantoprazole Sodium (Protonix Ec Tab) 40 mg PO 0600 [facility] Last Admin: 12/22/17 05:39 Dose: 40 mg Polyethylene Glycol (Miralax) 17 gm PO BID [facility] Last Admin: 12/21/17 18:21 Dose: 17 gm Potassium Phos/Sodium Phos (Neutra-Phos) 1 pkt PO TID [facility] Last Admin: 12/21/17 18:21 Dose: 1 pkt Saliva Substitute (Saliva Substitute) 0 ml PO WM [facility] Last Admin: 12/21/17 18:15 Dose: 1 ml Vitamin A (Vitamin A & D Oint Ud Foilpak) 1 ea TOP TID [facility] Last Admin: 12/21/17 18:22 Dose: 1 ea Zolpidem Tartrate (Ambien) 5 mg PO HS PRN; Protocol PRN Reason: Insomnia Last Admin: 12/20/17 21:03 Dose: 5 mg - Labs Labs: 12/22/17 05:50 12/20/17 05:30 PT 13.6 SECONDS (9.4-12.5) H 12/20/17 07:11 INR 1.18 12/20/17 07:11 APTT 30.0 Seconds (25.1-36.5) 12/19/17 06:15 - Constitutional Appears: Cachectic - Head Exam Head Exam: ATRAUMATIC, NORMOCEPHALIC - Eye Exam Eye Exam: EOMI, Normal appearance - ENT Exam ENT Exam: Mucous Membranes Moist - Respiratory Exam Respiratory Exam: Decreased Breath Sounds (bilaterally). absent: Accessory Muscle Use - Cardiovascular Exam Cardiovascular Exam: RRR, +S1, +S2 - GI/Abdominal Exam GI & Abdominal Exam: Soft, Normal Bowel Sounds. absent: Tenderness - Extremities Exam Extremities Exam: absent: Calf Tenderness - Neurological Exam Neurological Exam: Alert, Awake Additional comments: soft spoken - Psychiatric Exam Psychiatric exam: Depressed - Skin Skin Exam: Dry, Intact, Normal Color, Warm Assessment and Plan - Assessment and Plan (Free Text) Assessment: 72 year old male with a past medical history of stage IV NSCLC with bony metastases, COPD, pathologic right tibial fracture, an unstageable sacral decubitus ulcer who was admitted for failure to thrive and progressively worsening dysphagia. Upon admission the pateint was found to have gram positive bacteremia, an unstageable sacral ulcer, and a left sided pneumonia. GI was consulted for failure to thrive and placement of a PEG tube. The PEG tube dressing has been taken off and is clean and functioning. We started him on Jevity 1.2 continuous infusion 25 ml/hr with a rate to increase at 10 ml/hr with a goal of 60 ml/hr and to check residual q6h. This was not tolerated by the patient so he was switched to Ensure temporarily (by the primary team) an initial rate of 25 ml/hr; after a discussion with the PMD and the art sales consultant, it was decided to place the patient on Osmolite 35 ml/hr. We will not increase the rate by the hour. We recommend it be increased on a 24 hour basis by 10 ml/hr for a goal rate of 60 ml/hr. He can be given his PO medications via PEG tube and the PEG tube will be flushed with 50 mL of NS q6h for hydration and to maintain tube patency. Also, the patient had one episode of diarrhea since starting tube feeding while he was on Miralax 17 gm BID. In light of the large volume, watery BM, we will hold the Miralax while the colace can be continued at 100 mg Daily if the patient becomes constipated. The patient is to be transferred to an LTAC facility. Case was reviewed and discussed with attending physician, Dr. Levine <Sam Levine V - Last Filed: 12/22/17 21:24> Objective - Vital Signs/Intake and Output Vital Signs (last 24 hours): Temp Pulse Resp BP Pulse Ox 97.1 F L 90 19 128/58 L 98 12/22/17 18:52 12/22/17 18:52 12/22/17 18:52 12/22/17 18:52 12/22/17 18:52 Intake and Output: 12/22/17 12/23/17 18:59 06:59 Intake Total 420 Output Total 800 Balance -380 - Medications Medications: Current Medications Acetaminophen (Tylenol 160mg/5ml Oral Soln) 650 mg PEG Q4 PRN PRN Reason: Pain, Mild (1-3) Acetylcysteine (Acetylcysteine 20%) 3 ml IH Q6 [facility] Last Admin: 12/22/17 19:52 Dose: 3 ml Arformoterol Tartrate (Brovana) 15 mcg IH [id number] [facility] Last Admin: 12/22/17 19:53 Dose: 15 mcg Atorvastatin Calcium (Lipitor) 10 mg PEG DIN [facility] Last Admin: 12/22/17 17:43 Dose: 10 mg Calcium Carbonate (Calcium Carbonate) 625 mg PEG BID [facility] Collagenase (Santyl) 1 gm TOP DAILY [facility] Last Admin: 12/21/17 11:11 Dose: 1 applic Al Hydrox/Mg Hydrox/Simethicone 30 ml/Diphenhydramine HCl 75 mg/Lidocaine 30 ml 0 ml PO Q2H PRN PRN Reason: MOUTH/THROAT PAIN Docusate Sodium (Colace Liquid) 100 mg PEG DAILY PRN PRN Reason: Constipation Enoxaparin Sodium (Lovenox) 30 mg SC DAILY [facility] PRN Reason: Protocol Last Admin: 12/22/17 11:13 Dose: 30 mg Folic Acid (Folic Acid) 1 mg PEG BID [facility] Last Admin: 12/22/17 17:41 Dose: 1 mg Furosemide (Lasix) 40 mg PEG DAILY [facility] Dextrose/Sodium Chloride (Dextrose 5%/0.45% Ns 1000 Ml) 1,000 mls @ 85 mls/hr IV .[id number] [facility] Last Admin: 12/22/17 00:55 Dose: 85 mls/hr Vancomycin HCl (Vancomycin 1gm) 1 gm in 250 mls @ 167 mls/hr IVPB Q12H [facility] PRN Reason: Protocol Lactic Acid (Lac-Hydrin 12% Cream (140 G)) 1 ea TOP DAILY [facility] Last Admin: 12/22/17 10:00 Dose: 1 appl Levalbuterol HCl (Xopenex) 0.63 mg IH [id number] PRN PRN Reason: Shortness of Breath Last Admin: 12/22/17 13:37 Dose: 0.63 mg Lidocaine (Lidocaine 5%) 0 gm TOP TID [facility] Last Admin: 12/21/17 18:13 Dose: 1 applic Megestrol Acetate (Megace) 40 mg PEG DAILY [facility] Metoprolol Tartrate (Lopressor) 25 mg PEG BID [facility] Last Admin: 12/22/17 17:41 Dose: 25 mg Mirtazapine (Remeron) 15 mg PEG HS [facility] Non-Formulary Medication (Dimethicone [Proshield Plus Skin Protectant]) 1 applic TOP DAILY [facility] Last Admin: 12/22/17 10:00 Dose: Not Given Ondansetron HCl (Zofran Tab) 4 mg PO Q6 PRN PRN Reason: Nausea/Vomiting Last Admin: 12/15/17 15:18 Dose: 4 mg Pantoprazole Sodium (Protonix Susp) 40 mg PEG 0600 [facility] Potassium Phos/Sodium Phos (Neutra-Phos) 1 pkt PEG TID [facility] Last Admin: 12/22/17 14:00 Dose: 1 pkt Prednisone (Prednisone Oral Soln) 20 mg PEG DAILY [facility] Stop: 12/29/17 05:00 Prednisone (Prednisone Oral Soln) 10 mg PEG DAILY [facility] Stop: 01/03/18 05:00 Prednisone (Prednisone Oral Soln) 5 mg PEG DAILY [facility] Stop: 01/08/18 05:00 Saliva Substitute (Saliva Substitute) 0 ml PO WM [facility] Last Admin: 12/21/17 18:15 Dose: 1 ml Vitamin A (Vitamin A & D Oint Ud Foilpak) 1 ea TOP TID [facility] Last Admin: 12/22/17 17:40 Dose: 1 ea Zolpidem Tartrate (Ambien) 5 mg PEG HS PRN; Protocol PRN Reason: Insomnia - Labs Labs: 12/22/17 05:50 12/20/17 05:30 PT 13.6 SECONDS (9.4-12.5) H 12/20/17 07:11 INR 1.18 12/20/17 07:11 APTT 30.0 Seconds (25.1-36.5) 12/19/17 06:15 Attending/Attestation - Attestation I have personally seen and examined this patient.: Yes I have fully participated in the care of the patient.: Yes I have reviewed all pertinent clinical information, including history, physical exam and plan: Yes Notes (Text): This is an addendum to GI followup report dictated by the Dye Reel Operator. The patient was seen an that we need to change it here d examined earlier. Medical records, lab studies, imagings were reviewed. Last 24 hours events reviewed. Agreed with the above treatment plan as outlined in Dye Reel Operator 's notes with the addition of the following Patient is presently receiving Glucerna and no further episodes of bleeding The PICC site appeared normal with no bleeding The G-tube feeding has been changed to Osmolite as per dietitian Patient is on nonrebreathing mask Discussed with the [facility]'enid [facility] We will slowly increase the G-tube feeding rate based on patient's tolerance 12/22/17 21:22
[2017-12-22] MEDS: Arformoterol 15 mcg/2 ml Inh Sol IH SCH ×2 (08:08→19:53)
--- NOTE | 2017-12-22 08:14 | RAD ---
Date of service: 12/21/2017 HISTORY: atelectesis COMPARISON: 12/20/2017 FINDINGS: LUNGS: No change in left-sided infiltrate and effusion. No change in right lower lobe infiltrate PLEURA: Left pleural effusion CARDIOVASCULAR: Normal. OSSEOUS STRUCTURES: No significant abnormalities. VISUALIZED UPPER ABDOMEN: Normal. OTHER FINDINGS: None. IMPRESSION: No change in left-sided infiltrate and effusion. No change in right lower lobe infiltrate
[2017-12-22] MEDS ORDERED: Potassium Phosphate 30 MMOLE in Sodium Chloride 0.9% 250 ML IVPB ONE (08:32)
[2017-12-22] MEDS: DIMETHICONE TOP SCH (10:00)
[2017-12-22] MEDS: Ammonium Lactate 12% Cream (140 g) TOP SCH (10:00)
[2017-12-22] MEDS: Enoxaparin 30 mg Syringe SC SCH (11:13)
[2017-12-22] MEDS: Potassium & Sodium Phosphate PO SCH ×4 (11:14→17:40)
[2017-12-22] MEDS ORDERED: Acetaminophen 160 mg/5 ml UD PEG PRN (12:02)
[2017-12-22] MEDS ORDERED: Vancomycin 1.5 GM in Sodium Chloride 0.9% 500 ML IVPB ONE (12:36)
[2017-12-22] MEDS: Levalbuterol 0.63 MG/3 ML Inhal Soln UD IH PRN (13:37)
[2017-12-22] MEDS: Potassium & Sodium Phosphate PEG SCH (14:00)
--- NOTE | 2017-12-22 14:11 | PN ---
Copied To: Mohini Oro MD Attending MD: Mohini Oro MD DATE: 12/22/2017 SUBJECTIVE: The patient was admitted on the medical side for altered mental status. The patient has multiple medical issues, non-small cell lung carcinoma with metastasis to the bones. The patient presented to be depressed and that is why this writer producer got involved into the patient's care. So far, the patient is improving. The patient took Remeron last night. The patient was followed up today. The patient presented in good spirit. He was smiling to this writer producer. This writer producer wrote his name for the future references. The patient seems to be optimistic. The patient denied any thoughts of harming himself or others. The patient reported good night sleep on that medication. No psychosis, no agitation, no aggression. VITAL SIGNS: Stable. Temperature 98.2, pulse is 86, blood pressure 127/61, respiration 20, oxygen saturation is 95. MEDICATIONS: Reviewed. From the psychiatric standpoint, the patient is only on Remeron at the nighttime 15 mg at the nighttime. LABORATORY DATA: Reviewed. Hemoglobin and hematocrit are low. Coagulation reviewed. Blood gas reviewed. Chemistry reviewed. Toxicology reviewed. MENTAL STATUS EXAMINATION: The patient presented to be alert, pleasant, cooperative. The patient has breathing mask on him. The patient was smiling back to this writer producer. He reported that his sleep is okay. Denied any complaints. Mood described as better. Affect was reactive. Mood congruent. Thought process seems to be goal directed. Thought content, the patient denied visual, auditory, tactile hallucinations. Denied paranoid ideation. Insight and judgment seems to be fair. Impulses are well controlled. IMPRESSION: Most likely, the patient has mood disorder due to general medical condition, adjustment disorder with depression and anxious mood. PLAN: Continue current management. Continue current medication. Remeron should be continued. The patient expressed no thoughts of harming himself or others, in good behavioral control. Please reconsult as needed. This writer producer will sign off from this case. Should you have any questions, give me a call back. Thank you very much. Mohini Oro MD : 12/22/2017 11:13:25 [facility] # [id number]
--- NOTE | 2017-12-22 15:16 | CP.PCM.PN ---
Subjective - Date & Time of Evaluation Date of Evaluation: 12/22/17 Time of Evaluation: 12:40 - Subjective Subjective: Comfortable in bed, not in distress, afebrile, no diarrhea. Objective - Vital Signs/Intake and Output Vital Signs (last 24 hours): Temp Pulse Resp BP Pulse Ox 98.2 F 86 20 127/61 95 12/22/17 07:37 12/22/17 07:37 12/22/17 07:37 12/22/17 11:12 12/22/17 07:37 Intake and Output: 12/22/17 12/22/17 06:59 18:59 Intake Total 1020 Output Total 1675 Balance -655 - Medications Medications: Current Medications Acetaminophen (Tylenol 160mg/5ml Oral Soln) 650 mg PEG Q4 PRN PRN Reason: Pain, Mild (1-3) Acetylcysteine (Acetylcysteine 20%) 3 ml IH Q6 [facility] Last Admin: 12/22/17 08:08 Dose: 3 ml Arformoterol Tartrate (Brovana) 15 mcg IH [id number] [facility] Last Admin: 12/22/17 08:08 Dose: 15 mcg Atorvastatin Calcium (Lipitor) 10 mg PEG DIN [facility] Calcium Carbonate (Calcium Carbonate) 625 mg PEG BID [facility] Collagenase (Santyl) 1 gm TOP DAILY [facility] Last Admin: 12/21/17 11:11 Dose: 1 applic Al Hydrox/Mg Hydrox/Simethicone 30 ml/Diphenhydramine HCl 75 mg/Lidocaine 30 ml 0 ml PO Q2H PRN PRN Reason: MOUTH/THROAT PAIN Docusate Sodium (Colace Liquid) 100 mg PEG DAILY PRN PRN Reason: Constipation Enoxaparin Sodium (Lovenox) 30 mg SC DAILY [facility] PRN Reason: Protocol Last Admin: 12/22/17 11:13 Dose: 30 mg Folic Acid (Folic Acid) 1 mg PEG BID [facility] Furosemide (Lasix) 40 mg PEG DAILY [facility] Dextrose/Sodium Chloride (Dextrose 5%/0.45% Ns 1000 Ml) 1,000 mls @ 85 mls/hr IV .[id number] [facility] Last Admin: 12/22/17 00:55 Dose: 85 mls/hr Potassium Phosphate 30 mmole/ (Sodium Chloride) 260 mls @ 42.5 mls/hr IVPB ONCE ONE Stop: 12/22/17 14:39 Vancomycin HCl 1.5 gm/ Sodium (Chloride) 500 mls @ 167 mls/hr IVPB ONCE ONE PRN Reason: Protocol Stop: 12/22/17 15:35 Lactic Acid (Lac-Hydrin 12% Cream (140 G)) 1 ea TOP DAILY [facility] Last Admin: 12/21/17 11:12 Dose: 1 appl Levalbuterol HCl (Xopenex) 0.63 mg IH [id number] PRN PRN Reason: Shortness of Breath Last Admin: 12/21/17 19:22 Dose: 0.63 mg Lidocaine (Lidocaine 5%) 0 gm TOP TID [facility] Last Admin: 12/21/17 18:13 Dose: 1 applic Megestrol Acetate (Megace) 40 mg PEG DAILY [facility] Metoprolol Tartrate (Lopressor) 25 mg PEG BID [facility] Mirtazapine (Remeron) 15 mg PEG HS [facility] Non-Formulary Medication (Dimethicone [Proshield Plus Skin Protectant]) 1 applic TOP DAILY [facility] Last Admin: 12/21/17 10:54 Dose: Not Given Ondansetron HCl (Zofran Tab) 4 mg PO Q6 PRN PRN Reason: Nausea/Vomiting Last Admin: 12/15/17 15:18 Dose: 4 mg Pantoprazole Sodium (Protonix Susp) 40 mg PEG 0600 [facility] Potassium Phos/Sodium Phos (Neutra-Phos) 1 pkt PEG TID [facility] Prednisone (Prednisone Oral Soln) 20 mg PEG DAILY [facility] Stop: 12/29/17 05:00 Prednisone (Prednisone Oral Soln) 10 mg PEG DAILY [facility] Stop: 01/03/18 05:00 Prednisone (Prednisone Oral Soln) 5 mg PEG DAILY [facility] Stop: 01/08/18 05:00 Saliva Substitute (Saliva Substitute) 0 ml PO WM [facility] Last Admin: 12/21/17 18:15 Dose: 1 ml Vitamin A (Vitamin A & D Oint Ud Foilpak) 1 ea TOP TID [facility] Last Admin: 12/21/17 18:22 Dose: 1 ea Zolpidem Tartrate (Ambien) 5 mg PEG HS PRN; Protocol PRN Reason: Insomnia - Labs Labs: 12/22/17 05:50 12/20/17 05:30 PT 13.6 SECONDS (9.4-12.5) H 12/20/17 07:11 INR 1.18 12/20/17 07:11 APTT 30.0 Seconds (25.1-36.5) 12/19/17 06:15 - Constitutional Appears: Chronically Ill - Head Exam Head Exam: NORMAL INSPECTION - ENT Exam ENT Exam: Mucous Membranes Moist - Neck Exam Neck Exam: absent: Meningismus - Respiratory Exam Respiratory Exam: Decreased Breath Sounds Additional comments: right anterior chest wall port in place - Cardiovascular Exam Cardiovascular Exam: +S1, +S2 - GI/Abdominal Exam GI & Abdominal Exam: Soft. absent: Tenderness Assessment and Plan - Assessment and Plan (Free Text) Plan: Assessment Sepsis due to methicillin-resistant coagulase negative staph bacteremia, suspicious for port-a-cath as the source S/P infected unstageable sacral ulcer (skin and skin structure infection) metastatic non-small cell lung cancer cachexia COPD chronic anemia anxiety dyslipidemia HTN Plan continue Vancomycin day 10 to complete 10-14 days; repeat blood cx are negative - noted that the Vancomycin was d/c'ed by Pharmacy last night - will load the patient again with Vancomycin 1.5 gm x1 then Vancomycin 1gm q12 reviewed 2D echo which does not show vegetations will continue monitor clinically overall prognosis is poor discussed with Dr. Wolf previously
--- NOTE | 2017-12-22 16:03 | CP.PCM.PN ---
Subjective - Date & Time of Evaluation Date of Evaluation: 12/22/17 Time of Evaluation: 15:56 - Subjective Subjective: Jacqui Keen, PGY2, Progress Note for Dr Wolf: Patient seen and examined at bedside. Patient had an episode of loose BM yesterday night, peg tube feeds initially stopped. On chart review, it was noted patient was on Miralax and colace. Meds discontinued. Also consulted with Dietitian, and put patient on osmolyte (isotonic feed). No further episodes of diarrhea since last night. Denies fevers, chills, nausea, vomiting, abdominal pain, leg swelling. Objective - Vital Signs/Intake and Output Vital Signs (last 24 hours): Temp Pulse Resp BP Pulse Ox 98.2 F 86 20 127/61 95 12/22/17 07:37 12/22/17 07:37 12/22/17 07:37 12/22/17 11:12 12/22/17 07:37 Intake and Output: 12/22/17 12/22/17 06:59 18:59 Intake Total 1020 Output Total 1675 Balance -655 - Medications Medications: Current Medications Acetaminophen (Tylenol 160mg/5ml Oral Soln) 650 mg PEG Q4 PRN PRN Reason: Pain, Mild (1-3) Acetylcysteine (Acetylcysteine 20%) 3 ml IH Q6 [facility] Last Admin: 12/22/17 13:37 Dose: 3 ml Arformoterol Tartrate (Brovana) 15 mcg IH [id number] [facility] Last Admin: 12/22/17 08:08 Dose: 15 mcg Atorvastatin Calcium (Lipitor) 10 mg PEG DIN [facility] Calcium Carbonate (Calcium Carbonate) 625 mg PEG BID [facility] Collagenase (Santyl) 1 gm TOP DAILY [facility] Last Admin: 12/21/17 11:11 Dose: 1 applic Al Hydrox/Mg Hydrox/Simethicone 30 ml/Diphenhydramine HCl 75 mg/Lidocaine 30 ml 0 ml PO Q2H PRN PRN Reason: MOUTH/THROAT PAIN Docusate Sodium (Colace Liquid) 100 mg PEG DAILY PRN PRN Reason: Constipation Enoxaparin Sodium (Lovenox) 30 mg SC DAILY [facility] PRN Reason: Protocol Last Admin: 12/22/17 11:13 Dose: 30 mg Folic Acid (Folic Acid) 1 mg PEG BID [facility] Furosemide (Lasix) 40 mg PEG DAILY [facility] Dextrose/Sodium Chloride (Dextrose 5%/0.45% Ns 1000 Ml) 1,000 mls @ 85 mls/hr IV .[id number] [facility] Last Admin: 12/22/17 00:55 Dose: 85 mls/hr Vancomycin HCl (Vancomycin 1gm) 1 gm in 250 mls @ 167 mls/hr IVPB Q12H [facility] PRN Reason: Protocol Lactic Acid (Lac-Hydrin 12% Cream (140 G)) 1 ea TOP DAILY [facility] Last Admin: 12/21/17 11:12 Dose: 1 appl Levalbuterol HCl (Xopenex) 0.63 mg IH [id number] PRN PRN Reason: Shortness of Breath Last Admin: 12/22/17 13:37 Dose: 0.63 mg Lidocaine (Lidocaine 5%) 0 gm TOP TID [facility] Last Admin: 12/21/17 18:13 Dose: 1 applic Megestrol Acetate (Megace) 40 mg PEG DAILY [facility] Metoprolol Tartrate (Lopressor) 25 mg PEG BID [facility] Mirtazapine (Remeron) 15 mg PEG HS [facility] Non-Formulary Medication (Dimethicone [Proshield Plus Skin Protectant]) 1 applic TOP DAILY [facility] Last Admin: 12/21/17 10:54 Dose: Not Given Ondansetron HCl (Zofran Tab) 4 mg PO Q6 PRN PRN Reason: Nausea/Vomiting Last Admin: 12/15/17 15:18 Dose: 4 mg Pantoprazole Sodium (Protonix Susp) 40 mg PEG 0600 [facility] Potassium Phos/Sodium Phos (Neutra-Phos) 1 pkt PEG TID [facility] Prednisone (Prednisone Oral Soln) 20 mg PEG DAILY [facility] Stop: 12/29/17 05:00 Prednisone (Prednisone Oral Soln) 10 mg PEG DAILY [facility] Stop: 01/03/18 05:00 Prednisone (Prednisone Oral Soln) 5 mg PEG DAILY [facility] Stop: 01/08/18 05:00 Saliva Substitute (Saliva Substitute) 0 ml PO WM [facility] Last Admin: 12/21/17 18:15 Dose: 1 ml Vitamin A (Vitamin A & D Oint Ud Foilpak) 1 ea TOP TID [facility] Last Admin: 12/21/17 18:22 Dose: 1 ea Zolpidem Tartrate (Ambien) 5 mg PEG HS PRN; Protocol PRN Reason: Insomnia - Labs Labs: 12/22/17 05:50 12/20/17 05:30 PT 13.6 SECONDS (9.4-12.5) H 12/20/17 07:11 INR 1.18 12/20/17 07:11 APTT 30.0 Seconds (25.1-36.5) 12/19/17 06:15 - Additional Findings Additional findings: - Constitutional Appears: Non-toxic - Head Exam Head Exam: ATRAUMATIC, NORMOCEPHALIC - Eye Exam Eye Exam: EOMI, PERRL. absent: Conjunctival injection, Nystagmus, Scleral icterus Pupil Exam: NORMAL ACCOMODATION, PERRL. absent: Irregular, Unequal - ENT Exam ENT Exam: Mucous Membranes Moist - Neck Exam Neck Exam: Full ROM - Respiratory Exam Respiratory Exam: decreased breath sounds, NORMAL BREATHING PATTERN. absent: Accessory Muscle Use on NRB - Cardiovascular Exam Cardiovascular Exam: RRR, +S1, +S2. absent: Murmur - GI/Abdominal Exam GI & Abdominal Exam: Soft, Normal Bowel Sounds. absent: Firm, Guarding, Rigid, Tenderness, Mass, Organomegaly PEG tube in place, dressing clean, dry, intact, no bleeding noted - Extremities Exam Extremities Exam: Pedal Edema - Back Exam Additional comments: + sacral ulcer - Neurological Exam Neurological Exam: Alert, Awake - Psychiatric Exam Psychiatric exam: Depressed - Skin Skin Exam: Dry, Normal Color, Warm Assessment and Plan - Assessment and Plan (Free Text) Assessment: 72 year old male with PMH stage IV NSCLC (with bony metastases, diagnosed last month, treated with palliative radiation by Dr. Vega), COPD, R tibial pathological fx, sacral decubitus ulcer stage IV, admitted for sepsis, failure to thrive. Patient is s/p PEG tube insertion, tolerating Osmolyte feeds today. Patient found to be have hemoglobin dropping 8.1 with generalized weakness, will transfuse 2 units prbcs: Sepsis: 2/2 port-a-cath vs sacral ulcer -Blood cultures (2/2) grew coag neg staph, sensitivities noted. Repeat blood cultures neg to date. -On vanc and merem -Echo 12/13 showed EF 51.5%. Right ventricle moderately dilated. RV systolic function mildly-moderately reduced. Mod pulm HTN. No vegetations -ID on board. appreciate recs. Failure to thrive: -Likely secondary to worsening tumor burden, pain, infection, decubitus ulcer -PEG tube placed. started feeds as per GI. monitor NSCLC Stage IV -He is s/p first round of carboplatin and pemetrexed -Dr. Vega to continue radiation to the R tibia -Received Aredia at infusion clinic prior to admission, will be able to continue as an outpatient once he has stabilized Hypokalemia: - resolved - monitor Hypophosphatemia: - on neutrphosph tid PO - repleted with IV potassium phosphate as well - monitor Normocytic Anemia: -Likely due to anemia of chronic disease, no obvious signs of bleeding at this time -Hgb 8.1 today, will transfuse 2 units prbcs today. monitor post Hgb. -Will continue to monitor R Tibial and foot pain: -He is s/p repair by Dr. Fuller -We will continue 5% topical lidocaine ointment TID for his continuing pain -Oxycodone 5 mg q6h PRN for pain -Nurse instructed to use mulipodus boots (as given by Podiatry) and Amlactin for xerosis of foot. -Podiatry consulted, appreciate recs Sacral Decubitus Ulcer: -Per surgery, his ulcer is unstageable at this time -Q2 turns, air mattress, BID santyl application, multipodus boots ordered -Out of bed to chair twice daily, requested nursing obtain and use donut pad while he is in the chair DVT/GI PPX: Lovenox and protonix Case seen and discussed with Dr. Wolf
--- NOTE | 2017-12-22 16:52 | PN ---
Copied To: Judit Dent MD Attending MD: Judit Dent MD DATE: 12/22/2017 PULMONARY PROGRESS NOTE REFERRING PHYSICIAN: Adolfo Durbin MD. SUBJECTIVE: He is lying in the bed, head at 45 degrees. Failed attempt to wean down the oxygen. Continued to refuse nasal and oral suction. Does not want to sit up. Refusing therapy. Still require nonrebreather supplement oxygen. No hemoptysis or hematemesis. No hematuria. No diarrhea. No leg swelling reported. OBJECTIVE: GENERAL: In no acute distress. VITAL SIGNS: Temp is 98, heart rate is 86, respiratory rate is 20, blood pressure 127/61, pulse ox 95% on reservoir mask. HEENT: Moist mucous membrane. No ulcer or thrush noted. NECK: Supple. No JVD. LUNGS: Have decreased breath sounds on the left lung. HEART: S1 and S2. ABDOMEN: Soft and nontender. No organomegaly. EXTREMITIES: There is no edema. NEUROLOGICAL: Awake and alert. Follows simple command. MEDICATIONS: He is on Mucomyst 20% inhaled every 6 hours, Ambien 5 mg at bedtime p.r.n., Brovana inhaled twice a day, calcium carbonate 625 mg twice a day, Colace 100 mg daily, IV fluid D5 half-normal saline 85 mL/hour, also getting folic acid 1 mg daily, Lasix 40 mg daily, lidocaine 5% at affected area three times a day, Lipitor 10 mg daily, metoprolol tartrate 25 mg twice a day, Lovenox 30 mg daily, also on megestrol 40 mg G-tube daily, Neutra-Phos one pack three times a day, prednisone 20 mg daily which will be tapered down slowly, mirtazapine 15 mg at bedtime, vancomycin 1 g IV every 12 hours, Xopenex inhaled every 6 hours, Zofran p.r.n. basis. LABORATORY DATA: Shows hemoglobin 8.1, hematocrit 26, WBC 10.1, platelet is 245. INR 1.18. Chest x-ray done yesterday still shows large effusion and atelectasis with small aeration of the left apex area. IMPRESSION AND PLAN: Metastatic lung cancer involving the bones, vertebra, also has a pathologic fracture of the right tibia requiring surgery, chronic lung disease, collapsed left lung, mucous plugging, decubitus ulcer, oropharyngeal dysphagia, has a gastrostomy tube, malnutrition. The patient continued to refuse oral and nasal suction, not using incentive spirometer, needing high supplement oxygen. Overall, poor prognosis. Also refused radiation therapy. Spoke to nurse practitioner on the floor. Discontinued Solu-Medrol, placed on tapered dose of prednisone. We will continue help the patient and the family through this hard time. Continue . Pulmonary toilet. Spoke to the patient's brother at bedside. Thank you and we will follow with you. Judit Dent MD
[2017-12-22] MEDS: Vitamins A & D Oint UD Foilpak TOP SCH ×2 (17:39→17:40)
[2017-12-23] MEDS: Acetylcysteine 20% Inhal Soln (4ml) IH SCH ×3 (01:18→08:04)
[2017-12-23] MEDS: Levalbuterol 0.63 MG/3 ML Inhal Soln UD IH PRN (03:26)
[2017-12-23] MEDS ORDERED: Pantoprazole 40 mg Susp UD PEG SCH (06:00)
[2017-12-23] MEDS: Dextrose 5%/0.45% NS 1,000 ML IV SCH (06:14)
[2017-12-23 07:49] LABS: ARTERIAL BLOOD GAS HCO3 32.7 mmol/L (21-28); ARTERIAL BLOOD GAS O2 CAPACITY 15.1 mL/dl (16-24); ARTERIAL BLOOD GAS O2 CONTENT 13.7 ML/dl (15-23); ARTERIAL BLOOD GAS O2 SAT 90.9 % (95-98); ARTERIAL BLOOD GAS PCO2 40 mm/Hg (35-45); ARTERIAL BLOOD GAS PH 7.52 (7.35-7.45); ARTERIAL BLOOD GAS TCO2 33.9 mmol.L (22-28)
[2017-12-23] MEDS: Arformoterol 15 mcg/2 ml Inh Sol IH SCH ×2 (08:04→20:10)
--- NOTE | 2017-12-23 08:20 | PCM.RRT ---
<Ulices Marley - Last Filed: 12/23/17 09:18> TRAFFIC WAREHOUSE SUPERVISOR Nurse Assessment - Situation Date: 12/23/17 Time TRAFFIC WAREHOUSE SUPERVISOR was called: 07:33 TRAFFIC WAREHOUSE SUPERVISOR Location:: [address] [place] [address] Room Number: [id number] TRAFFIC WAREHOUSE SUPERVISOR Reason for Call: O2 Saturation below 90% TRAFFIC WAREHOUSE SUPERVISOR Called By: RN - Respiratory Oxygen Delivery Method: BiPAP @% - Diagnostic Test Ordered EKG: Yes Chest X-Ray: Yes CT Scan: No - Stat Labs Ordered TRAFFIC WAREHOUSE SUPERVISOR Stat Labs Ordered: CBC, TROPONIN, ABG CPR started during TRAFFIC WAREHOUSE SUPERVISOR?: No I.Reason for TRAFFIC WAREHOUSE SUPERVISOR - A) Acute Change in Patient: (Select all that apply): Acute change in SpO2 less - Neurological Status (Select all that apply): Alert, Responsive, Follows Commands - Respiratory Oxygen Delivery Method: BiPAP @% - Eyes Eye Exam: absent: Conjunctival injection Plan - Assessment of Findings&Treatment Plan Ulices Marley- Internal Medicine Resident- Rapid Response Note: CC: Difficulty Breathing HPI: Patient is a 72 year old male with a past medical history of stage IV NSCLC, COPD, R tibial pathological fx, sacral decubitus ulcer stage IV, who was admitted for evaluation and treatment of failure to thrive. TRAFFIC WAREHOUSE SUPERVISOR called on patient by RN for oxygen desaturation. Patient seen and examined at bedside. Patient was awake, alert, responded to verbal stimuli, and followed commands. Monitor noted to read oxygen saturation in high 60s/low 70s. Patient admitted to experiencing increased work of breathing and SOB. Patients chest/abdominal binder removed and patient repositioned in bed. BiPAP was started. Oxygen saturation improved and sustained in the 90-94%range. Patient admitted to moderate improvement in SOB relative to start of TRAFFIC WAREHOUSE SUPERVISOR. Patient denied fevers, chills, chest pain, nausea, vomiting, diarrhea, constipation. Physical Examination: - Constitutional Appears: No Acute Distress, Unkempt, Chronically Ill - Head Head Exam: ATRAUMATIC, NORMOCEPHALIC - Eyes Eye Exam: EOMI. absent: Conjunctival injection - Extremities Exam Additional comments: - Constitutional Appears: Non-toxic, Unkempt, Chronically Ill Appearing - Head Exam Head Exam: ATRAUMATIC, NORMOCEPHALIC - Eye Exam Eye Exam: EOMI, absent: Conjunctival injection, Scleral icterus - ENT Exam ENT Exam: Mucous Membranes Moist - Respiratory Exam Respiratory Exam: decreased breath sounds bilateral lower lobes absent: Accessory Muscle Use - Cardiovascular Exam Cardiovascular Exam: Tachycardic, Regular Rhythm, normal S1, normal S2 - GI/Abdominal Exam GI & Abdominal Exam: Soft, Normal Bowel Sounds. absent: Firm, Guarding, Rigid, Tenderness, Mass, Organomegaly PEG tube in place, dressing clean, dry, intact, no bleeding noted - Extremities Exam Extremities Exam: Trace Pedal Edema - Neurological Exam Neurological Exam: Alert, Awake, Responds to verbal stimuli, and follows commands - Skin Skin Exam: Dry, Normal Color, Warm Assessment and Plan: Patient is a 72 year old male with a past medical history of stage IV NSCLC, COPD, R tibial pathological fx, sacral decubitus ulcer stage IV, who was admitted for evaluation and treatment of failure to thrive. TRAFFIC WAREHOUSE SUPERVISOR called on patient by RN for oxygen desaturation. Hypoxemia in Setting of Ventilation Difficulty - SaO2 noted to be in high 60s low 70s upon arrival to room, improved to 90s after positional change, release of binder, and BiPAP - Staff informed to keep binder loose to ensure patients ability to fully inspire - Patient placed on tele - 2nd unit of pRBC stopped, PEG tube feeding on hold - c/w BiPAP: IPAP 12 EPAP 6 FiO2 100% (titrate down while keeping SaO2 > 88%) - c/w xopenox, brovana, acetylcystine, and prednisone - EKG reviewed and appreciated- limited read due to motion artifact, Sinus tachycardia HR 119 bpm, QTc 483ms, T wave inversion noted in V1-V4 (compared to EKG on 12/16/17) - ABG reviewed and appreciated- metabolic alkalosis and hypoxemia, pH 7.52, PCO2 40, PO2 53, and HCO3 32.7 likely 2/2 loss of gastric secretions vs K+ wasting diuretics - CXR reviewed and appreciated compared to imaging on - No change in bilateral infiltrates. Decreased size of left effusion - CBC, CMP, Mag, Phos, Troponin q6h x 3 ordered and pending - primary team's service called- patient case endorsed to physician personal driver- instructed to restart PEG tube feedings - patient's research analyst Dr. Dent contacted- patient case endorsed- instructed to place ICU consult for further recs Patient seen, case reviewed with, and plan approved by attending physician, Dr. Quintana. <Gregg Quintana - Last Filed: 12/23/17 09:44> TRAFFIC WAREHOUSE SUPERVISOR Nurse Assessment - Vital Signs Vital Sign: Rapid Response Vital Sign Blood Pressure 150/72 Pulse Rate 112 Respiratory Rate 22 Temperature 97.3 F Oxygen Saturation 88 - Vital Signs at end of TRAFFIC WAREHOUSE SUPERVISOR Vital Signs at end of TRAFFIC WAREHOUSE SUPERVISOR: Rapid Response End Vital Sign Blood Pressure 151/88 Pulse Rate 24 Respiratory Rate 97 Temperature 119 F O2 Sat by Pulse Oximetry 68 Attending/Attestation - Attestation I have personally seen and examined this patient.: Yes I have fully participated in the care of the patient.: Yes I have reviewed all pertinent clinical information, including history, physical exam and plan: Yes Notes (Text): 12/23/17 09:43 TRAFFIC WAREHOUSE SUPERVISOR called for dyspnea during 2nd unit of prbc transfusion. Transfusion held. EKG, CXR, labs ordered. Bipap applied and lasix dose given. PMD/Cardiology/Pulmonary follow up requested. Gregg Quintana MD Hospitalist.
--- NOTE | 2017-12-23 08:28 | RAD ---
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 Focal consolidation in the left upper lobe. PLEURA: Decreased size of left effusion CARDIOVASCULAR: Normal. OSSEOUS STRUCTURES: No significant abnormalities. VISUALIZED UPPER ABDOMEN: Normal. OTHER FINDINGS: None. IMPRESSION: No change in bilateral infiltrates. Decreased size of left effusion
[2017-12-23 08:46] LABS: BASO # 0.01 K/mm3 (0.0-2.0); BASO % 0.1 % (0.0-3.0); EOS % 0.3 % (1.5-5.0); GRAN # 12.02 (1.4-6.5); GRAN % 90.7 % (50.0-68.0); LYMPH # 0.7 (1.2-3.4); LYMPH % 5.2 % (22.0-35.0); MEAN CORPUSCULAR HEMOGLOBIN 28.8 pg (25.0-35.0); MEAN CORPUSCULAR HGB CONC 32.4 g/dl (31.0-37.0); MEAN PLATELET VOLUME 9.9 fl (7.0-11.0); MONO # 0.5 (0.1-0.6); MONO % 3.7 % (1.0-6.0); PLATELET COUNT 197 10^3/uL (120.0-450.0); RBC 3.89 10^6/uL (3.5-6.1); RED CELL DISTRIBUTION WIDTH 17.4 % (11.5-14.5); WHITE BLOOD COUNT 13.3 10^3/ul (4.5-11.0)
[2017-12-23 08:47] LABS: ALB/GLOB RATIO 0.9 (1.1-1.8); ALBUMIN 2.5 g/dL (3.0-4.8); ALT/SGPT 26 U/L (7-56); AST/SGOT 36 U/L (17-59); BLOOD UREA NITROGEN 10 mg/dL (7-21); CALCIUM 7.2 mg/dL (8.4-10.5); GFR AFRICAN-AMERICAN > 60; GFR NON-AFRICAN AMERICAN > 60
[2017-12-23 08:57] LABS: TROPONIN I 0.01 ng/mL
--- NOTE | 2017-12-23 09:05 | CARD ---
APPROVED REPORT Date of service: 12/23/2017 EKG Measurement Heart [id number] <Conclusion> Sinus tachycardia Incomplete right bundle branch block ST & T wave abnormality, consider anterior ischemia Abnormal ECG
[2017-12-23 09:34] LABS: HEMOGLOBIN 11.2 g/dL (14.0-18.0); MEAN CELL VOLUME 88.9 fl (80.0-105.0)
--- NOTE | 2017-12-23 09:38 | PN ---
Copied To: Barrera Purdy MD Attending MD: Barrera Purdy MD DATE: 12/23/2017 SUBJECTIVE: The patient is seen in room 363 bed 2 earlier this morning and he had weakness and continues to do poorly. OBJECTIVE: VITAL SIGNS: On exam, temperature of 97, blood pressure is 150/70, respiratory rate 22, heart rate of 100. HEENT: Examination is unremarkable. NECK: Supple. LUNGS: Have decreased breath sounds. HEART: Normal S1, S2. ABDOMEN: Soft, nontender. DATA: Laboratory examination reveals a white count of 10,000, hemoglobin of 8, platelets of 245. BUN of 7, creatinine of 0.3 and procalcitonin 0.1 on 12/11/2017 and vancomycin trough of 11.4. Microbiology reveals the repeat cultures are negative and the patient had a chest x-ray earlier today and a Rapid Response was called after I saw the patient and a patchy infiltrate is noted and the right lung base focal consolidation. Dr. Dent's note is reviewed. The patient is on Solu-Medrol and vancomycin. ASSESSMENT AND PLAN: This is a 72-year-old male with sepsis with methicillin-resistant coag-negative Staph bacteremia suspicious for a Port-A-Cath and now with a possible new sepsis with healthcare-associated right lower lobe aspiration pneumonia. The patient is on vancomycin day #11 with complete 14 days and we will add meropenem for a new healthcare-associated pneumonia in a patient with chronic obstructive lung disease, chronic anemia, anxiety, dyslipidemia, hypertension, metastatic non-small cell lung cancer with pending blood cultures x2, urine culture, sputum culture and procalcitonin. Status post Rapid Response was called. Barrera Purdy MD
[2017-12-23] MEDS ORDERED: Potassium Chloride 40 mEq/30 ml LIQ UD PEG ONE (09:47)
[2017-12-23] MEDS ORDERED: Magnesium Sulfate 2 GM in Sodium Chloride 0.9% 100 ML IVPB ONE (09:47)
[2017-12-23] MEDS ORDERED: predniSONE 5 mg/5 mL Oral Soln UD PEG SCH (10:00)
[2017-12-23] MEDS ORDERED: Furosemide 40 mg/5 mL Oral Soln UD PEG SCH (10:00)
[2017-12-23 10:04] LABS: EOSINOPHIL 1 % (0.0-3.0); LYMPHOCYTE 1 % (22.0-35.0); MONOCYTE 5 % (1.0-6.0); NEUTROPHIL 93 % (50.0-70.0); PLATELET ESTIMATE NORMAL (NORMAL)
[2017-12-23] MEDS: Ammonium Lactate 12% Cream (140 g) TOP SCH (10:05)
[2017-12-23] MEDS: DIMETHICONE TOP SCH (10:05)
[2017-12-23] MEDS: Magnesium 2 gm/50 ml NS 2 GM/50 ML BAG IVPB SCH (10:06)
[2017-12-23] MEDS: Enoxaparin 30 mg Syringe SC SCH (10:06)
[2017-12-23] MEDS: Potassium & Sodium Phosphate PEG SCH (10:06)
[2017-12-23] MEDS: Vitamins A & D Oint UD Foilpak TOP SCH ×2 (10:08→17:36)
--- NOTE | 2017-12-23 10:15 | CP.PCM.CON ---
History of Present Illness - History of Present Illness History of Present Illness: MICU CONSULT NOTE HPI Patient is 72 year old male with a past medical history of stage IV NSCLC, COPD , R tibial pathological fx, sacral decubitus ulcer stage IV, pulm HTN, who was admitted for evaluation and treatment of failure to thrive. 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 Patient's blod transfusion was stopped, abdominal binder taken off, placed on BIPAP with improvement in O2 saturation to 95%. MICU consult requested. Patient seen and examined at bedside. Patient was awake, alert, responded to verbal stimuli, and followed commands. Pt reports mild SOB, denies CP. PMhx as above PSHx as above Meds as per EMR FHx NC Social former smoker, cannot quantify, denies etoh, drug use Review of Systems - Review of Systems Review of Systems: as per HPI Past Patient History - Infectious Disease Hx of Infectious Diseases: None - Past Social History Smoking Status: Former Smoker - CARDIAC Hx Cardiac Disorders: No - PULMONARY Hx Respiratory Disorders: No - NEUROLOGICAL Hx Neurological Disorder: No - HEENT Hx HEENT Problems: No - RENAL Hx Chronic Kidney Disease: No - ENDOCRINE/METABOLIC Hx Endocrine Disorders: No - HEMATOLOGICAL/ONCOLOGICAL Hx Blood Transfusions: No Hx Blood Transfusion Reaction: No - INTEGUMENTARY Hx Dermatological Problems: No - MUSCULOSKELETAL/RHEUMATOLOGICAL Hx Musculoskeletal Disorders: Yes Hx Falls: Yes (mechanical fall) - GASTROINTESTINAL Hx Gastrointestinal Disorders: No - GENITOURINARY/GYNECOLOGICAL Hx Genitourinary Disorders: No - PSYCHIATRIC Hx Psychophysiologic Disorder: Yes Hx Anxiety: Yes - SURGICAL HISTORY Hx Surgeries: Yes - ANESTHESIA Hx Anesthesia Reactions: No Hx Malignant Hyperthermia: No Meds Home Medications: Home Medication List Medication Instructions Recorded Confirmed Type Dronabinol [Marinol] 5 mg PO BID #0 12/11/17 Rx Metoprolol Tartrate [Lopressor] 25 mg PO BID #0 12/11/17 Rx Allergies/Adverse Reactions: Allergies Allergy/AdvReac Type Severity Reaction Status Date / Time aspirin AdvReac Intermediate NAUSEA Verified 11/06/17 11:48 - Medications Medications: Current Medications Acetaminophen (Tylenol 160mg/5ml Oral Soln) 650 mg PEG Q4 PRN PRN Reason: Pain, Mild (1-3) Acetylcysteine (Acetylcysteine 20%) 3 ml IH Q6 [facility] Last Admin: 12/23/17 08:04 Dose: 3 ml Alprazolam (Xanax) 0.25 mg PO Q12 [facility] PRN Reason: Protocol Stop: 12/29/17 22:16 Last Admin: 12/22/17 22:50 Dose: 0.25 mg Arformoterol Tartrate (Brovana) 15 mcg IH [id number] [facility] Last Admin: 12/23/17 08:04 Dose: 15 mcg Atorvastatin Calcium (Lipitor) 10 mg PEG DIN [facility] Last Admin: 12/22/17 17:43 Dose: 10 mg Calcium Carbonate (Calcium Carbonate) 625 mg PEG BID [facility] Collagenase (Santyl) 1 gm TOP DAILY [facility] Last Admin: 12/21/17 11:11 Dose: 1 applic Al Hydrox/Mg Hydrox/Simethicone 30 ml/Diphenhydramine HCl 75 mg/Lidocaine 30 ml 0 ml PO Q2H PRN PRN Reason: MOUTH/THROAT PAIN Docusate Sodium (Colace Liquid) 100 mg PEG DAILY PRN PRN Reason: Constipation Enoxaparin Sodium (Lovenox) 30 mg SC DAILY [facility] PRN Reason: Protocol Last Admin: 12/22/17 11:13 Dose: 30 mg Folic Acid (Folic Acid) 1 mg PEG BID [facility] Last Admin: 12/22/17 17:41 Dose: 1 mg Furosemide (Lasix) 40 mg PEG DAILY [facility] Vancomycin HCl (Vancomycin 1gm) 1 gm in 250 mls @ 167 mls/hr IVPB Q12H [facility] PRN Reason: Protocol Meropenem (Merrem Iv 1 Gm Premix) 50 mls @ 100 mls/hr IVPB Q8 [facility] PRN Reason: Protocol Stop: 01/01/18 14:01 Magnesium 2 gm/50 ml NS (Magnesium Sulfate 2 Gm/50 Ml Ns) 2 gm in 50 mls @ 50 mls/hr IVPB ONCE [facility] Lactic Acid (Lac-Hydrin 12% Cream (140 G)) 1 ea TOP DAILY [facility] Last Admin: 12/22/17 10:00 Dose: 1 appl Levalbuterol HCl (Xopenex) 0.63 mg IH [id number] PRN PRN Reason: Shortness of Breath Last Admin: 12/23/17 03:26 Dose: 0.63 mg Lidocaine (Lidocaine 5%) 0 gm TOP TID [facility] Last Admin: 12/21/17 18:13 Dose: 1 applic Megestrol Acetate (Megace) 40 mg PEG DAILY [facility] Metoprolol Tartrate (Lopressor) 25 mg PEG BID [facility] Last Admin: 12/22/17 17:41 Dose: 25 mg Mirtazapine (Remeron) 15 mg PEG HS [facility] Last Admin: 12/22/17 22:50 Dose: 15 mg Non-Formulary Medication (Dimethicone [Proshield Plus Skin Protectant]) 1 applic TOP DAILY [facility] Last Admin: 12/22/17 10:00 Dose: Not Given Ondansetron HCl (Zofran Tab) 4 mg PO Q6 PRN PRN Reason: Nausea/Vomiting Last Admin: 12/15/17 15:18 Dose: 4 mg Pantoprazole Sodium (Protonix Susp) 40 mg PEG 0600 [facility] Last Admin: 12/23/17 06:19 Dose: 40 mg Potassium Phos/Sodium Phos (Neutra-Phos) 1 pkt PEG TID [facility] Last Admin: 12/22/17 14:00 Dose: 1 pkt Prednisone (Prednisone Oral Soln) 20 mg PEG DAILY [facility] Stop: 12/29/17 05:00 Prednisone (Prednisone Oral Soln) 10 mg PEG DAILY [facility] Stop: 01/03/18 05:00 Prednisone (Prednisone Oral Soln) 5 mg PEG DAILY [facility] Stop: 01/08/18 05:00 Saliva Substitute (Saliva Substitute) 0 ml PO WM [facility] Last Admin: 12/21/17 18:15 Dose: 1 ml Vitamin A (Vitamin A & D Oint Ud Foilpak) 1 ea TOP TID [facility] Last Admin: 12/22/17 17:40 Dose: 1 ea Zolpidem Tartrate (Ambien) 5 mg PEG HS PRN; Protocol PRN Reason: Insomnia Last Admin: 12/22/17 22:50 Dose: 5 mg Physical Exam - Constitutional Appears: Toxic, In Acute Distress, Confused, Cachectic, Chronically Ill - Head Exam Head Exam: NORMAL INSPECTION - Eye Exam Eye Exam: Normal appearance - ENT Exam ENT Exam: Mucous Membranes Moist - Respiratory Exam Respiratory Exam: Rales, NORMAL BREATHING PATTERN - Cardiovascular Exam Cardiovascular Exam: REGULAR RHYTHM, +S1, +S2 - GI/Abdominal Exam GI & Abdominal Exam: Normal Bowel Sounds, Soft - Extremities Exam Extremities exam: Positive for: normal inspection - Neurological Exam Neurological exam: Alert - Psychiatric Exam Psychiatric exam: Anxious Results - Vital Signs Recent Vital Signs: Last Vital Signs Temp 97.8 F 12/23/17 08:07 Pulse 102 H 12/23/17 08:07 Resp 22 12/23/17 08:07 BP 150/94 H 12/23/17 09:56 Pulse Ox 92 L 12/23/17 06:00 - Labs Result Diagrams: 12/23/17 08:20 12/23/17 08:20 Labs: Laboratory Results - last 24 hr 12/22/17 12/23/17 12/23/17 15:17 07:37 07:40 WBC RBC Hgb Hct MCV MCH MCHC RDW Plt Count MPV Gran % Lymph % (Auto) [place] % (Auto) Eos % (Auto) Baso % (Auto) Gran # Lymph # (Auto) [place] # (Auto) Eos # (Auto) Baso # (Auto) Neutrophils % (Manual) Lymphocytes % (Manual) Monocytes % (Manual) Eosinophils % (Manual) Platelet Evaluation pCO2 40 pO2 53.0 L HCO3 32.7 H ABG pH 7.52 H ABG Total CO2 33.9 H ABG O2 Saturation 90.9 L ABG O2 Content 13.7 L ABG Base Excess 9.1 H ABG Hemoglobin 11.0 L ABG Carboxyhemoglobin 1.7 H POC ABG HHb (Measured) 8.9 H ABG Methemoglobin 0.8 ABG O2 Capacity 15.1 L Hgb O2 Saturation 88.6 L FiO2 100.0 Sodium Potassium Chloride Carbon Dioxide Anion Gap BUN Creatinine Est GFR ( Amer) Est GFR (Non-Af Amer) POC Glucose (mg/dL) 138 H Random Glucose Calcium Phosphorus Magnesium Total Bilirubin AST ALT Alkaline Phosphatase Troponin I Total Protein Albumin Globulin Albumin/Globulin Ratio Blood Type O POSITIVE Antibody Screen Negative Crossmatch See Detail BBK History Checked Patient has bt 12/23/17 12/23/17 08:20 08:20 WBC 13.3 H D RBC 3.89 Hgb 11.2 L D Hct 34.6 L MCV 88.9 D MCH 28.8 MCHC 32.4 RDW 17.4 H Plt Count 197 MPV 9.9 Gran % 90.7 H Lymph % (Auto) 5.2 L [place] % (Auto) 3.7 Eos % (Auto) 0.3 L Baso % (Auto) 0.1 Gran # 12.02 H Lymph # (Auto) 0.7 L [place] # (Auto) 0.5 Eos # (Auto) 0.0 Baso # (Auto) 0.01 Neutrophils % (Manual) 93 H Lymphocytes % (Manual) 1 L Monocytes % (Manual) 5 Eosinophils % (Manual) 1 Platelet Evaluation Normal pCO2 pO2 HCO3 ABG pH ABG Total CO2 ABG O2 Saturation ABG O2 Content ABG Base Excess ABG Hemoglobin ABG Carboxyhemoglobin POC ABG HHb (Measured) ABG Methemoglobin ABG O2 Capacity Hgb O2 Saturation FiO2 Sodium 136 Potassium 3.2 L Chloride 95 L Carbon Dioxide 37 H Anion Gap 7 L BUN 10 Creatinine 0.3 L Est GFR ( Amer) > 60 Est GFR (Non-Af Amer) > 60 POC Glucose (mg/dL) Random Glucose 105 Calcium 7.2 L Phosphorus 2.2 L Magnesium 1.4 L Total Bilirubin 1.5 H AST 36 ALT 26 Alkaline Phosphatase 134 H D Troponin I 0.01 Total Protein 5.4 L Albumin 2.5 L Globulin 2.9 Albumin/Globulin Ratio 0.9 L Blood Type Antibody Screen Crossmatch BBK History Checked - Imaging and Cardiology Chest x-ray Status: Image reviewed by me, Report reviewed by me CT scan - chest Status: Image reviewed by me, Report reviewed by me Assessment & Plan - Assessment and Plan (Free Text) Assessment: 72 year old male with a past medical history of stage IV NSCLC, COPD, R tibial pathological fx, sacral decubitus ulcer stage IV with hypoxia, SOB Hypoxia Resp failure SOB NSCLC with mets Pulm HTN COPD Sacral Decub Recommend: - cont with BIPAP 12/5/40%, titrate FiO2 to goal sat 90% - obtain ABG on BIPAP - monitor resp status closely, high risk for intubation - Duonebs q4hr - Solumedrol 40mg IV q8hr - Lasix 40mg IV BID - Hold further blood transfusions, Hgb adaquate - Abx Merrem Vanco - Check Procal - ECHO reviewed - Monitor LFTs - FS control - GI ppx - DVT ppx - Transfer to MICU FULL CODE Patient at high risk for morbidity and mortality Extremely poor prognosis Goals of care discussion with family Critical care time 40 minutes
[2017-12-23] MEDS: Lidocaine 5% Oint(35 gm) TOP SCH ×3 (10:40→17:34)
[2017-12-23] MEDS: Saliva Substitute 44.3 ML PO SCH ×3 (10:41→17:33)
--- NOTE | 2017-12-23 10:41 | PQF ---
PROVIDER RESPONSE TEXT: Provider was unable to determine a response for this query. REVIEWER QUERY TEXT: Malnutrition Severity Malnutrition is documented in the Medical Record. Please specify the severity Such as: -- Mild - first degree --XXX Moderate - second degree -- Severe - third degree -- Severe malnutrition with marasmus -- Other, please specify The patient's Clinical Indicators include: Your consult included malnutrition as a diagnosis in this patient with end stage lung cancer. Please specify acuity. Query created by: Joyce Rowell on 12/13/2017 7:45 AM PROVIDER RESPONSE TEXT: Provider was unable to determine a response for this query. REVIEWER QUERY TEXT: Documentation Clarification Your help is requested in clarifying the following clinical documentation, if you can please further specify in the medical record and discharge summary. The patient's Clinical Indicators include: Patient with oropharngeal dysphagia, cough, SOB, hypoxia. Kept NPO. CXR done 12/18 shows infiltrate right lung base. Your PN of 12/19 notes " patient kept NPO that because of oropharyngeal dysphagia and constant aspiration"..... "aspirated with collapse left lung".... Please clarify if patient has aspiration pneumonia.YES Query created by: Joyce Rowell on 12/19/2017 7:27 AM Electronically signed by: Kyle Alvarez 12/23/2017 10:38 AM PATRICK
[2017-12-23 11:31] LABS: ARTERIAL BLOOD GAS HCO3 35.1 mmol/L (21-28); ARTERIAL BLOOD GAS HEMOGLOBIN 12.2 g/dL (11.7-17.4); ARTERIAL BLOOD GAS O2 CAPACITY 16.8 mL/dl (16-24); ARTERIAL BLOOD GAS O2 CONTENT 16.2 ML/dl (15-23); ARTERIAL BLOOD GAS O2 SAT 96.5 % (95-98); ARTERIAL BLOOD GAS PCO2 45 mm/Hg (35-45); ARTERIAL BLOOD GAS TCO2 36.5 mmol.L (22-28)
[2017-12-23] MEDS: diltiaZEM IVPB 100mg in NS 100 ML IV PRN ×2 (11:36→21:30)
--- NOTE | 2017-12-23 12:21 | CP.PCM.PN ---
Addendum entered and electronically signed by Julian Duran DO 12/23/17 12:34 : Time of evaluation should state 8AM, not 7AM Original Note: <Julian Duran - Last Filed: 12/23/17 12:21> Subjective - Date & Time of Evaluation Date of Evaluation: 12/23/17 Time of Evaluation: 07:00 - Subjective Subjective: PGY6 GI Fellow Progress Note Patient seen and examined bedside this morning in room 363-2. Patient was transfused 1 unit overnight and during transfusion of second unit, became hypoxic. 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 Nursing staff state that patient tube feeds were held as a result and pt placed on CPAP. He is to be moved to the CCU. Currently, no complaints from patient. Prior to this event, no episodes of abdominal pain, nausea, vomiting or significant coughing noted. 12 system ROS limited as patient breathless on CPAP Objective - Vital Signs/Intake and Output Vital Signs (last 24 hours): Temp Pulse Resp BP Pulse Ox 97 F L 119 H 46 H 128/85 94 L 12/23/17 10:00 12/23/17 12:11 12/23/17 12:11 12/23/17 12:00 12/23/17 10:00 Intake and Output: 12/23/17 12/23/17 06:59 18:59 Intake Total 1360 170 Output Total 1120 Balance 240 170 - Medications Medications: Current Medications Acetaminophen (Tylenol 160mg/5ml Oral Soln) 650 mg PEG Q4 PRN PRN Reason: Pain, Mild (1-3) Acetylcysteine (Acetylcysteine 20%) 3 ml IH Q6 [facility] Last Admin: 12/23/17 08:04 Dose: 3 ml Arformoterol Tartrate (Brovana) 15 mcg IH [id number] [facility] Last Admin: 12/23/17 08:04 Dose: 15 mcg Collagenase (Santyl) 1 gm TOP DAILY [facility] Last Admin: 12/21/17 11:11 Dose: 1 applic Al Hydrox/Mg Hydrox/Simethicone 30 ml/Diphenhydramine HCl 75 mg/Lidocaine 30 ml 0 ml PO Q2H PRN PRN Reason: MOUTH/THROAT PAIN Enoxaparin Sodium (Lovenox) 30 mg SC DAILY [facility] PRN Reason: Protocol Last Admin: 12/23/17 10:06 Dose: 30 mg Furosemide (Lasix) 20 mg IVP DAILY [facility] Vancomycin HCl (Vancomycin 1gm) 1 gm in 250 mls @ 167 mls/hr IVPB Q12H [facility] PRN Reason: Protocol Meropenem (Merrem Iv 1 Gm Premix) 50 mls @ 100 mls/hr IVPB Q8 [facility] PRN Reason: Protocol Stop: 01/01/18 14:01 Magnesium 2 gm/50 ml NS (Magnesium Sulfate 2 Gm/50 Ml Ns) 2 gm in 50 mls @ 50 mls/hr IVPB ONCE [facility] Last Admin: 12/23/17 10:06 Dose: 50 mls/hr diltiaZEM IVPB 100mg in NS (Cardizem 100mg In Ns) 100 mls @ 5 mls/hr IV .Q20H PRN; Protocol; 5 MG/HR PRN Reason: TITRATE PER MD ORDER Last Admin: 12/23/17 11:36 Dose: 5 mg/hr, 5 mls/hr Lactic Acid (Lac-Hydrin 12% Cream (140 G)) 1 ea TOP DAILY [facility] Last Admin: 12/23/17 10:05 Dose: 1 appl Levalbuterol HCl (Xopenex) 0.63 mg IH [id number] PRN PRN Reason: Shortness of Breath Last Admin: 12/23/17 03:26 Dose: 0.63 mg Lidocaine (Lidocaine 5%) 0 gm TOP TID [facility] Last Admin: 12/23/17 10:40 Dose: Not Given Lorazepam (Ativan) 0.5 mg IVP Q6H PRN; Protocol PRN Reason: Anxiety Methylprednisolone (Solu-Medrol) 20 mg IVP Q12 [facility] Non-Formulary Medication (Dimethicone [Proshield Plus Skin Protectant]) 1 applic TOP DAILY [facility] Last Admin: 12/23/17 10:05 Dose: Not Given Ondansetron HCl (Zofran Tab) 4 mg PO Q6 PRN PRN Reason: Nausea/Vomiting Last Admin: 12/15/17 15:18 Dose: 4 mg Pantoprazole Sodium (Protonix Inj) 40 mg IVP DAILY [facility] Saliva Substitute (Saliva Substitute) 0 ml PO WM [facility] Last Admin: 12/23/17 10:41 Dose: Not Given Vitamin A (Vitamin A & D Oint Ud Foilpak) 1 ea TOP TID [facility] Last Admin: 12/23/17 10:08 Dose: 1 ea - Labs Labs: 12/23/17 08:20 12/23/17 08:20 PT 13.6 SECONDS (9.4-12.5) H 12/20/17 07:11 INR 1.18 12/20/17 07:11 APTT 30.0 Seconds (25.1-36.5) 12/19/17 06:15 - Constitutional Appears: Other (short of breath) - Eye Exam Eye Exam: EOMI, PERRL - ENT Exam ENT Exam: Mucous Membranes Dry - Respiratory Exam Respiratory Exam: Decreased Breath Sounds, Wheezes. absent: Rales, Rhonchi - Cardiovascular Exam Cardiovascular Exam: Tachycardia, REGULAR RHYTHM, +S1, +S2 - GI/Abdominal Exam GI & Abdominal Exam: Soft, Normal Bowel Sounds. absent: Distended, Firm, Guarding, Rigid, Tenderness, Organomegaly Additional comments: PEG site clean, intact; abdominal binder present; TF held - Extremities Exam Additional comments: RLE discoloration of skin noted, some weakness of this limb - Neurological Exam Neurological Exam: Alert, Awake - Psychiatric Exam Psychiatric exam: Normal Affect, Normal Mood - Skin Skin Exam: Dry, Warm Assessment and Plan - Assessment and Plan (Free Text) Assessment: Patient is a 72yo male with PMHx significant for stage IV NSCLC with bony metastases, COPD, pathologic right tibial fracture, an unstageable sacral decubitus ulcer who was admitted for failure to thrive and progressively worsening dysphagia -Hypoxia with concern for transfusion reaction vs TACO, TRALI -Anemia s/p 1.5 units PRBCs -Failure to thrive s/p PEG insertion Plan: -Patient to be moved to CCU bed for closer monitoring of respiratory status -Agree with temporarily holding TF given hypoxia, resume once acute issues resolve -Goal rate 60mL/hr; plan was to increase feeds at rate of 10mL/hr per day to goal as tolerated by patient -Defer pulmonology issues to primary team and intensive unit staff -Will follow Case seen and discussed with Dr Levine <Sam Levine V - Last Filed: 12/23/17 14:05> Objective - Vital Signs/Intake and Output Vital Signs (last 24 hours): Temp Pulse Resp BP Pulse Ox 97 F L 117 H 46 H 128/85 94 L 12/23/17 10:00 12/23/17 13:16 08/04/18 12:11 12/23/17 12:00 12/23/17 10:00 Intake and Output: 12/23/17 12/23/17 06:59 18:59 Intake Total 1360 170 Output Total 1120 Balance 240 170 - Medications Medications: Current Medications Acetaminophen (Tylenol 160mg/5ml Oral Soln) 650 mg PEG Q4 PRN PRN Reason: Pain, Mild (1-3) Acetylcysteine (Acetylcysteine 20%) 3 ml IH Q6 [facility] Last Admin: 12/23/17 08:04 Dose: 3 ml Arformoterol Tartrate (Brovana) 15 mcg IH [id number] [facility] Last Admin: 12/23/17 08:04 Dose: 15 mcg Collagenase (Santyl) 1 gm TOP DAILY [facility] Last Admin: 12/21/17 11:11 Dose: 1 applic Al Hydrox/Mg Hydrox/Simethicone 30 ml/Diphenhydramine HCl 75 mg/Lidocaine 30 ml 0 ml PO Q2H PRN PRN Reason: MOUTH/THROAT PAIN Enoxaparin Sodium (Lovenox) 30 mg SC DAILY [facility] PRN Reason: Protocol Last Admin: 12/23/17 10:06 Dose: 30 mg Furosemide (Lasix) 20 mg IVP DAILY [facility] Vancomycin HCl (Vancomycin 1gm) 1 gm in 250 mls @ 167 mls/hr IVPB Q12H [facility] PRN Reason: Protocol Meropenem (Merrem Iv 1 Gm Premix) 50 mls @ 100 mls/hr IVPB Q8 [facility] PRN Reason: Protocol Stop: 01/01/18 14:01 Magnesium 2 gm/50 ml NS (Magnesium Sulfate 2 Gm/50 Ml Ns) 2 gm in 50 mls @ 50 mls/hr IVPB ONCE [facility] Last Admin: 12/23/17 10:06 Dose: 50 mls/hr diltiaZEM IVPB 100mg in NS (Cardizem 100mg In Ns) 100 mls @ 5 mls/hr IV .Q20H PRN; Protocol; 5 MG/HR PRN Reason: TITRATE PER MD ORDER Last Admin: 12/23/17 11:36 Dose: 5 mg/hr, 5 mls/hr Lactic Acid (Lac-Hydrin 12% Cream (140 G)) 1 ea TOP DAILY [facility] Last Admin: 12/23/17 10:05 Dose: 1 appl Levalbuterol HCl (Xopenex) 0.63 mg IH [id number] PRN PRN Reason: Shortness of Breath Last Admin: 12/23/17 03:26 Dose: 0.63 mg Lidocaine (Lidocaine 5%) 0 gm TOP TID [facility] Last Admin: 12/23/17 10:40 Dose: Not Given Lorazepam (Ativan) 0.5 mg IVP Q6H PRN; Protocol PRN Reason: Anxiety Methylprednisolone (Solu-Medrol) 20 mg IVP Q12 [facility] Non-Formulary Medication (Dimethicone [Proshield Plus Skin Protectant]) 1 applic TOP DAILY [facility] Last Admin: 12/23/17 10:05 Dose: Not Given Ondansetron HCl (Zofran Tab) 4 mg PO Q6 PRN PRN Reason: Nausea/Vomiting Last Admin: 12/15/17 15:18 Dose: 4 mg Pantoprazole Sodium (Protonix Inj) 40 mg IVP DAILY [facility] Saliva Substitute (Saliva Substitute) 0 ml PO WM [facility] Last Admin: 12/23/17 10:41 Dose: Not Given Vitamin A (Vitamin A & D Oint Ud Foilpak) 1 ea TOP TID [facility] Last Admin: 12/23/17 10:08 Dose: 1 ea - Labs Labs: 12/23/17 08:20 12/23/17 08:20 PT 13.6 SECONDS (9.4-12.5) H 12/20/17 07:11 INR 1.18 12/20/17 07:11 APTT 30.0 Seconds (25.1-36.5) 12/19/17 06:15 Attending/Attestation - Attestation I have personally seen and examined this patient.: Yes I have fully participated in the care of the patient.: Yes I have reviewed all pertinent clinical information, including history, physical exam and plan: Yes Notes (Text): This is an addendum to GI progress report dictated by the GI Fellow.The patient was seen and examined earlier. Medical records, lab studies, imagings were reviewed. Last 24 hours events reviewed. Agreed with the above treatment plan as outlined in GI Fellow 's notes the with the addition of the following Feeding is on hold now About events noted Discussed with the nursing staff Follow-up hemoglobin Patient was due to be transferred to telemetry at the time of evaluation 12/23/17 14:04
[2017-12-23] MEDS ORDERED: Digoxin 500 mcg/2ml (0.5 mg/2ml) Inj IVP ONE (14:31)
[2017-12-23] MEDS: MethylPREDNISolone 40 mg Vial IVP SCH ×2 (14:38→22:54)
[2017-12-23] MEDS: Vancomycin 1gm in NS 250ml 1 GM/250 ML BAG IVPB SCH ×2 (14:38→22:59)
[2017-12-23] MEDS: Meropenem IV 1 gm in NS 50 ML IVPB SCH ×2 (15:06→22:00)
[2017-12-23] MEDS ORDERED: Etomidate 20 mg/10ml Inj IV ONE ×2 (15:10→15:22)
[2017-12-23] MEDS ORDERED: Propofol 10 mg/ml Inj (20 ML) ONE (15:11)
[2017-12-23] MEDS ORDERED: Sodium Chloride 0.9% 1,000 ML IV STA ×2 (15:30→17:30)
[2017-12-23] MEDS: Propofol 10 mg/ml Inj (20 ML) IVP ONE ×2 (15:40→18:29)
[2017-12-23] MEDS: Fentanyl 1000mcg/100ml NS 1,000 MCG/100 ML BAG IV PRN (15:51)
[2017-12-23] MEDS: Collagenase 250 Units/gm Ointment(30 gm) TOP SCH (17:35)
[2017-12-23] MEDS ORDERED: Propofol 10 mg/ml Inj (20 ML) IVP ONE (17:35)
--- NOTE | 2017-12-23 17:37 | CP.PCM.PN ---
Subjective - Date & Time of Evaluation Date of Evaluation: 12/23/17 Time of Evaluation: 15:00 - Subjective Subjective: Patient has several secretions and is having difficulty oxygenating on BiPAP. Decision to intubate has been made Objective - Vital Signs/Intake and Output Vital Signs (last 24 hours): Temp Pulse Resp BP Pulse Ox 97 F L 120 H 27 H 114/72 94 L 12/23/17 10:00 12/23/17 14:55 12/23/17 14:55 12/23/17 14:56 12/23/17 10:00 Intake and Output: 12/23/17 12/23/17 06:59 18:59 Intake Total 1360 175 Output Total 1120 Balance 240 175 - Medications Medications: Current Medications Acetaminophen (Tylenol 160mg/5ml Oral Soln) 650 mg PEG Q4 PRN PRN Reason: Pain, Mild (1-3) Acetylcysteine (Acetylcysteine 20%) 3 ml IH Q6 [facility] Last Admin: 12/23/17 08:04 Dose: 3 ml Arformoterol Tartrate (Brovana) 15 mcg IH [id number] [facility] Last Admin: 12/23/17 08:04 Dose: 15 mcg Collagenase (Santyl) 1 gm TOP DAILY [facility] Last Admin: 12/21/17 11:11 Dose: 1 applic Al Hydrox/Mg Hydrox/Simethicone 30 ml/Diphenhydramine HCl 75 mg/Lidocaine 30 ml 0 ml PO Q2H PRN PRN Reason: MOUTH/THROAT PAIN Enoxaparin Sodium (Lovenox) 30 mg SC DAILY [facility] PRN Reason: Protocol Last Admin: 12/23/17 10:06 Dose: 30 mg Furosemide (Lasix) 20 mg IVP DAILY [facility] Vancomycin HCl (Vancomycin 1gm) 1 gm in 250 mls @ 167 mls/hr IVPB Q12H [facility] PRN Reason: Protocol Last Admin: 12/23/17 14:38 Dose: 167 mls/hr Meropenem (Merrem Iv 1 Gm Premix) 50 mls @ 100 mls/hr IVPB Q8 [facility] PRN Reason: Protocol Stop: 01/01/18 14:01 Last Admin: 12/23/17 15:06 Dose: 100 mls/hr Magnesium 2 gm/50 ml NS (Magnesium Sulfate 2 Gm/50 Ml Ns) 2 gm in 50 mls @ 50 mls/hr IVPB ONCE [facility] Last Admin: 12/23/17 10:06 Dose: 50 mls/hr diltiaZEM IVPB 100mg in NS (Cardizem 100mg In Ns) 100 mls @ 5 mls/hr IV .Q20H PRN; Protocol; 5 MG/HR PRN Reason: TITRATE PER MD ORDER Last Titration: 12/23/17 12:30 Dose: 10 mg/hr, 10 mls/hr Fentanyl Citrate (Fentanyl Citrate/Sodium Chloride 1 Mg/100 Ml) 1,000 mcg in 100 mls @ 2 mls/hr IV .Q24H PRN; Protocol; 20 MCG/HR PRN Reason: TITRATE PER MD ORDER Last Admin: 12/23/17 15:51 Dose: 20 mcg/hr, 2 mls/hr Lactic Acid (Lac-Hydrin 12% Cream (140 G)) 1 ea TOP DAILY [facility] Last Admin: 12/23/17 10:05 Dose: 1 appl Levalbuterol HCl (Xopenex) 0.63 mg IH [id number] PRN PRN Reason: Shortness of Breath Last Admin: 12/23/17 03:26 Dose: 0.63 mg Lidocaine (Lidocaine 5%) 0 gm TOP TID [facility] Last Admin: 12/23/17 10:40 Dose: Not Given Lorazepam (Ativan) 0.5 mg IVP Q6H PRN; Protocol PRN Reason: Anxiety Methylprednisolone (Solu-Medrol) 20 mg IVP Q12 [facility] Last Admin: 12/23/17 14:38 Dose: 20 mg Non-Formulary Medication (Dimethicone [Proshield Plus Skin Protectant]) 1 applic TOP DAILY [facility] Last Admin: 12/23/17 10:05 Dose: Not Given Ondansetron HCl (Zofran Tab) 4 mg PO Q6 PRN PRN Reason: Nausea/Vomiting Last Admin: 12/15/17 15:18 Dose: 4 mg Pantoprazole Sodium (Protonix Inj) 40 mg IVP DAILY [facility] Saliva Substitute (Saliva Substitute) 0 ml PO WM [facility] Last Admin: 12/23/17 15:06 Dose: Not Given Vitamin A (Vitamin A & D Oint Ud Foilpak) 1 ea TOP TID [facility] Last Admin: 12/23/17 10:08 Dose: 1 ea - Labs Labs: 12/23/17 08:20 12/23/17 08:20 PT 13.6 SECONDS (9.4-12.5) H 12/20/17 07:11 INR 1.18 12/20/17 07:11 APTT 30.0 Seconds (25.1-36.5) 12/19/17 06:15
--- NOTE | 2017-12-23 17:39 | PCM.PROC ---
Procedures Attestation:: I certify that I have explained the specified Operation(s) or Procedure(s), risks, benefits and reasonable alternatives to the Patient and/or other person responsible. The opportunity was given to ask questions and all questions answered - Central Line Placement Right Internal Jugular Triple Lumen Catheter Aseptic technique was employed throughout the procedure: Hand Hygiene done prior to procedure, Full sterile barriers (mask, hair cover, sterile gown, sterile gloves), Chloraprep Antiseptic: 30 second prep for IJ or SC sites CVP Time Out Performed: Yes Pt. Placed on Pulse Ox Monitor: Yes Central Line Prep: Chlorhexidine-Alcohol Combination Local Anesthesia Used: Lidocaine 1% Amount of Anesthesia Used (mls): 40 Ultrasound Used for Placement: Yes Central Line Lumen Inserted: triple Central Line Length: 20 cm (22) Post Procedure: Sutured in Place, Good Blood Return, All Ports Aspirated, Flushed, Capped, Sterile Dressing Applied Secured by: Suture Post procedure dressing: Gauze, Clear vapor permeable, Chlorhexidine disc ( Biopatch) Post Procedure X-Ray: Yes Patient Tolerated Procedure: Well Immediate Complications: None Additional Comments: Supervised and assisted by Dr. Bonilla, was present and assisted in all chua portions of the procedure
--- NOTE | 2017-12-23 17:41 | PCM.PROC ---
Procedures Attestation:: I certify that I have explained the specified Operation(s) or Procedure(s), risks, benefits and reasonable alternatives to the Patient and/or other person responsible. The opportunity was given to ask questions and all questions answered - Intubation Time Out Performed: Yes Sedative: Etomidate Laryngoscope: Jax ET Tube Size: 7.5 ET Tube Uncuffed: Yes ET Tube Secured at Depth: 24 cm ET Tube Secured Locarion: Lips ET Tube Placement Confirmation: Visualized Passing Through Cords, Breath Sounds Equal Bilaterally, No Breath Sounds Over Epigastrum, Confirmation w/Capnometry Patient Tolerated Procedure: Well, No Complications Procedure Immediate Complications: None Additional comments: Supervised and assisted by Dr. Bonilla. Dr. Bonilla was present and assisted with all chua aspects of the procedure
[2017-12-23 18:20] LABS: ARTERIAL BLOOD GAS HCO3 32.5 mmol/L (21-28); ARTERIAL BLOOD GAS HEMOGLOBIN 10.3 g/dL (11.7-17.4); ARTERIAL BLOOD GAS O2 CAPACITY 14.2 mL/dl (16-24); ARTERIAL BLOOD GAS O2 CONTENT 13.8 ML/dl (15-23); ARTERIAL BLOOD GAS O2 SAT 97.2 % (95-98); ARTERIAL BLOOD GAS PCO2 66 mm/Hg (35-45); ARTERIAL BLOOD GAS TCO2 34.5 mmol.L (22-28)
[2017-12-23 19:10] LABS: PH,URINE 7.5 (4.7-8.0); URINE BILIRUBIN NEGATIVE (NEGATIVE); URINE BLOOD NEGATIVE (NEGATIVE); URINE GLUCOSE (UA) NEGATIVE (NEGATIVE); URINE LEUKOCYTE ESTERASE NEGATIVE Leu/uL (NEGATIVE); URINE PROTEIN TRACE mg/dL (<30 mg/dL)
[2017-12-23 19:16] LABS: URINE APPEARANCE CLEAR (CLEAR); URINE COLOR YELLOW (YELLOW)
[2017-12-23 19:26] LABS: URINE BACTERIA MOD (NEG); URINE RBC NEGATIVE /hpf (0-2)
[2017-12-23 23:08] LABS: TROPONIN I 0.02 ng/mL
[2017-12-23 23:32] LABS: ALB/GLOB RATIO 0.8 (1.1-1.8); ALBUMIN 2.1 g/dL (3.0-4.8); ALT/SGPT 31 U/L (7-56); AST/SGOT 25 U/L (17-59); BLOOD UREA NITROGEN 13 mg/dL (7-21); CALCIUM 6.7 mg/dL (8.4-10.5); GFR AFRICAN-AMERICAN > 60; GFR NON-AFRICAN AMERICAN > 60
--- NOTE | 2017-12-23 23:59 | PN ---
Copied To: Judit Dent MD Attending MD: Judit Dent MD DATE: 12/23/2017 PULMONARY CRITICAL CARE PROGRESS NOTE REFERRING PHYSICIAN: Artem Wolf MD SUBJECTIVE: Has a rapid response this morning, desaturated to very low pulse ox. He was placed on noninvasive ventilation. Chest x-ray was done which shows very small area of aeration, mostly effusion and atelectasis of the left lung with midline shift. No hemoptysis, no hematemesis, no hematuria, no diarrhea, unable to clear pulmonary secretion. OBJECTIVE: GENERAL: In intensive care unit, whole family at bedside, noninvasive ventilation, unable to clear pulmonary secretion, does not allow nasal or oral suction. VITAL SIGNS: He is afebrile, heart rate was 130-140, respiratory rate is 25-30, blood pressure 88/60. HEENT: Moist mucous membrane. Crowded airway. LUNGS: No breath sounds of the left lung. Scattered rhonchi of the right lung. HEART: Tachycardic. ABDOMEN: Soft, nontender, nondistended. G-tube area looks okay. EXTREMITIES: There is no edema. NEUROLOGIC: Lethargic, arousable. MEDICATIONS: He is on Mucomyst inhaled every 6 hours, lorazepam 0.5 mg every 6 hours, Brovana inhaled twice a day, also on IV diltiazem, Lasix 20 mg daily, lidocaine patch at affected area, Lovenox 30 mg daily, Magic mouth wash p.r.n. basis, meropenem 1 g IV every 8 hours, Protonix 40 mg daily, Santyl to affected areas, Solu-Medrol 20 mg every 12 hours, Tylenol p.r.n. basis, vitamin A and D ointment to affected area, Xopenex 0.63 inhaled every 6 hours, Zofran p.r.n. basis. LABORATORY DATA: Shows hemoglobin 11.2, hematocrit 34.6, WBC 13.3, platelet count is 197. His blood gases shows this morning pH 7.52, pCO2 of 40, pO2 of 53, this is on a 100% reservoir mask. Sodium 136, potassium 3.2, chloride 95, bicarbonate 37, BUN 10, creatinine 0.3, calcium 7.2, phosphorus 2.2, magnesium 1.4, total bili 1.5, AST 36, ALT 26, alk phos is 134, 54. Albumin 2.4, procalcitonin 0.08. Blood culture done on 12/11/2017 has a coag-negative staph, but on latest blood culture on 12/13/2017, there is no growth. Chest x-ray done after rapid response shows mostly collapsed left lung with midline shift to the left side. IMPRESSION AND PLAN: Unresectable lung cancer with metastasis to the bones, vertebra, had a pathological fracture of the right tibia, chronic obstructive lung disease, collapsed left lung with mucus plugging, oropharyngeal dysphagia requiring G-tube, malnutrition, unable to ventilate through the noninvasive ventilation. The patient is refusing nasal or oral suction. Family at bedside. The patient is full code. After discussing with the whole family and patient, decision is made to intubate the patient. 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 May need fluids, pressors, aggressive suctioning. I also spoke to respiratory therapist. Overall poor prognosis. Follow up ABG, chest x-ray, CBC, CMP in the morning. Critical care time, I spent more than 35 minutes. Thank you and we will follow with you. Judit Dent MD
[2017-12-24] MEDS: Fentanyl 1000mcg/100ml NS 1,000 MCG/100 ML BAG IV PRN
[2017-12-24] MEDS: Meropenem IV 1 gm in NS 50 ML IVPB SCH ×3 (05:06→21:24)
[2017-12-24 05:40] LABS: GRAN # 11.93 (1.4-6.5); GRAN % 95.6 % (50.0-68.0); HEMOGLOBIN 9.9 g/dL (14.0-18.0); LYMPH # 0.4 (1.2-3.4); MEAN CELL VOLUME 91.1 fl (80.0-105.0); MEAN CORPUSCULAR HEMOGLOBIN 28.5 pg (25.0-35.0); MEAN CORPUSCULAR HGB CONC 31.3 g/dl (31.0-37.0); MEAN PLATELET VOLUME 10.3 fl (7.0-11.0); MONO # 0.2 (0.1-0.6); MONO % 1.4 % (1.0-6.0); RBC 3.47 10^6/uL (3.5-6.1); RED CELL DISTRIBUTION WIDTH 17.8 % (11.5-14.5); WHITE BLOOD COUNT 12.5 10^3/ul (4.5-11.0)
[2017-12-24 05:50] LABS: ALB/GLOB RATIO 0.8 (1.1-1.8); ALBUMIN 2.2 g/dL (3.0-4.8); ALT/SGPT 17 U/L (7-56); AST/SGOT 21 U/L (17-59); BLOOD UREA NITROGEN 14 mg/dL (7-21); GFR AFRICAN-AMERICAN > 60; GFR NON-AFRICAN AMERICAN > 60
[2017-12-24 06:28] LABS: ARTERIAL BLOOD GAS HCO3 32.9 mmol/L (21-28); ARTERIAL BLOOD GAS HEMOGLOBIN 11.7 g/dL (11.7-17.4); ARTERIAL BLOOD GAS O2 CAPACITY 16.5 mL/dl (16-24); ARTERIAL BLOOD GAS O2 CONTENT 16.4 ML/dl (15-23); ARTERIAL BLOOD GAS O2 SAT 99.4 % (95-98); ARTERIAL BLOOD GAS PCO2 61 mm/Hg (35-45); ARTERIAL BLOOD GAS PH 7.34 (7.35-7.45); ARTERIAL BLOOD GAS TCO2 34.8 mmol.L (22-28)
[2017-12-24] MEDS: Arformoterol 15 mcg/2 ml Inh Sol IH SCH ×2 (07:00→19:45)
[2017-12-24] MEDS: Levalbuterol 0.63 MG/3 ML Inhal Soln UD IH PRN (07:01)
--- NOTE | 2017-12-24 08:47 | RAD ---
Date of service: 12/23/2017 HISTORY: check mucous plug, status of atelectasis COMPARISON: Earlier same day FINDINGS: LUNGS: There is improved aeration of the left lung. The previous study showed complete opacification. There is a moderate size left effusion. There is a continued infiltrate or atelectasis in the left upper lobe PLEURA: As above CARDIOVASCULAR: Normal. OSSEOUS STRUCTURES: No significant abnormalities. VISUALIZED UPPER ABDOMEN: Normal. OTHER FINDINGS: Endotracheal tube in satisfactory position IMPRESSION: There is improved aeration of the left lung. The previous study showed complete opacification. There is a moderate size left effusion. There is a continued infiltrate or atelectasis in the left upper lobe
[2017-12-24] MEDS: Enoxaparin 30 mg Syringe SC SCH (09:07)
[2017-12-24] MEDS: MethylPREDNISolone 40 mg Vial IVP SCH ×2 (09:17→21:22)
[2017-12-24] MEDS: Vitamins A & D Oint UD Foilpak TOP SCH ×3 (09:18→18:48)
[2017-12-24] MEDS: Saliva Substitute 44.3 ML PO SCH ×4 (09:20→18:48)
[2017-12-24] MEDS: Collagenase 250 Units/gm Ointment(30 gm) TOP SCH (09:20)
--- NOTE | 2017-12-24 09:20 | RAD ---
Date of service: 12/24/2017 HISTORY: COPD COMPARISON: 12/23/2017 FINDINGS: LUNGS: No significant change in medial consolidation left upper lobe. Bibasilar infiltrates and left-sided effusion PLEURA: No significant pleural effusion identified, no pneumothorax apparent. CARDIOVASCULAR: Normal. OSSEOUS STRUCTURES: No significant abnormalities. VISUALIZED UPPER ABDOMEN: Normal. OTHER FINDINGS: Endotracheal tube in satisfactory position IMPRESSION: No significant change in medial consolidation left upper lobe. Bibasilar infiltrates and left-sided effusion
--- NOTE | 2017-12-24 09:30 | RAD ---
Date of service: 12/23/2017 HISTORY: Central Venous Catheter Placement COMPARISON: Earlier same day FINDINGS: LUNGS: There is recurrent complete atelectasis of the left lung with mediastinal shift to the left. The tip of the right internal jugular line is partially obscured by the preexisting Port-A-Cath. It appears to terminate in the upper SVC. There is no pneumothorax PLEURA: No significant pleural effusion identified, no pneumothorax apparent. CARDIOVASCULAR: Normal. OSSEOUS STRUCTURES: No significant abnormalities. VISUALIZED UPPER ABDOMEN: Normal. OTHER FINDINGS: None. IMPRESSION: There is recurrent complete atelectasis of the left lung with mediastinal shift to the left. The tip of the right internal jugular line is partially obscured by the preexisting Port-A-Cath. It appears to terminate in the upper SVC. There is no pneumothorax
--- NOTE | 2017-12-24 09:57 | CP.CCUPN ---
<Quirino Miller - Last Filed: 12/24/17 09:52> CCU Subjective - Physician Review Events Since Last Encounter (Free Text): Quirino Miller, PGY-1 ICU Progress note Patient seen and examined at bedside. No acute events overnight. BP is 90/50s, otherwise vitals are stable and afebrile. Cardizem drip stopped this morning and cardizem 30mg PO Q6 started. Will attempt to extubate today. 12 point ROS limited due to intubation. CCU Objective - Vital Signs / Intake & Output Vital Signs (Last 4 hours): Vital Signs Pulse Resp BP Pulse Ox 12/24/17 09:07 84 123/64 12/24/17 08:00 80 99/49 L 91 L 12/24/17 07:53 85 12/24/17 07:52 81 12/24/17 07:51 84 12/24/17 07:50 85 12/24/17 07:49 90 12/24/17 07:48 94 H 12/24/17 07:47 96 H 12/24/17 07:46 93 H 12/24/17 07:45 90 12/24/17 07:44 85 12/24/17 07:43 82 12/24/17 07:42 81 12/24/17 07:41 81 12/24/17 07:40 84 12/24/17 07:39 82 12/24/17 07:38 82 12/24/17 07:37 83 12/24/17 07:36 82 12/24/17 07:35 83 12/24/17 07:34 85 12/24/17 07:33 81 12/24/17 07:32 83 12/24/17 07:31 81 12/24/17 07:30 83 12/24/17 07:29 83 12/24/17 07:28 82 12/24/17 07:27 83 12/24/17 07:26 83 12/24/17 07:23 85 12/24/17 07:20 99 H 82 L 12/24/17 07:10 83 94 L 12/24/17 07:09 12 96 12/24/17 07:00 92 H 123/64 96 12/24/17 06:30 79 99 12/24/17 06:20 80 99 12/24/17 06:10 79 100 08/05/18 06:00 80 93/43 L 99 Intake and Output (Last 8hrs): Intake & Output 12/23/17 12/24/17 12/24/17 22:59 06:59 14:59 Intake Total 3030.0 1306 Output Total 150 125 Balance 2880.0 1181 Intake: IV 2730.0 156 Right Subclavian 100 43 Subclavian 2550 88 Tube Feeding 300 800 Other 350 Output: Urine 150 125 Condom 150 125 Stool 0 Other: # Bowel Movements 1 - Physical Exam Head: Positive for: Atraumatic, Normocephalic Pupils: Positive for: PERRL Extroacular Muscles: Positive for: EOMI Conjunctiva: Positive for: Normal Mouth: Positive for: Dry Neck: Positive for: Normal Range of Motion. Negative for: MIDLINE TENDERNESS, Paraspinal Tenderness Respiratory/Chest: Positive for: Clear to Auscultation, Decreased Breath Sounds (decreased breath sounds left side). Negative for: Respiratory Distress, Accessory Muscle Use Cardiovascular: Positive for: Regular Rate and Rhythm, Normal S1, S2. Negative for: Murmurs Abdomen: Negative for: Tenderness, Distention, Peritoneal Signs Back: Positive for: Normal Inspection Upper Extremity: Positive for: Normal Inspection. Negative for: Cyanosis, Edema Lower Extremity: Positive for: Other (surgical scar rt knee, clean, dr, and intact). Negative for: Edema, Normal ROM (mild pain with movement) Neurological: Positive for: GCS=15, CN II-XII Intact, Speech Normal Skin: Positive for: Warm, Dry, Normal Color. Negative for: Rashes Psychiatric: Positive for: Alert, Oriented x 3, Normal Insight, Normal Concentration - Medications Active Medications: Active Medications Generic Name Dose Route Start Last Admin Trade Name Freq PRN Reason Stop Dose Admin Acetaminophen 650 mg 12/22/17 12:02 Tylenol 160mg/5ml Oral Soln PEG Q4 PRN Pain, Mild (1-3) Arformoterol Tartrate 15 mcg 12/12/17 08:00 12/24/17 07:00 Brovana IH 15 mcg [id number] FRANKY Administration Collagenase 1 gm 12/12/17 12:15 12/24/17 09:20 Santyl TOP 1 applic DAILY FRANKY Administration Al Hydrox/Mg Hydrox/ 0 ml 12/12/17 15:59 Simethicone 30 ml/ PO Diphenhydramine HCl 75 mg/ Q2H PRN Lidocaine 30 ml MOUTH/THROAT PAIN Diltiazem HCl 30 mg 12/24/17 08:45 12/24/17 09:07 Cardizem PO 30 mg Q6 FRANKY Administration Enoxaparin Sodium 30 mg 12/13/17 10:00 12/24/17 09:07 Lovenox SC 30 mg DAILY FRANKY Administration Protocol Furosemide 20 mg 12/24/17 10:00 12/24/17 09:07 Lasix IVP 20 mg DAILY FRANKY Administration Vancomycin HCl 1 gm in 250 mls @ 167 mls/hr 12/22/17 23:30 12/23/17 22:59 Vancomycin 1gm IVPB 167 mls/hr Q12H FRANKY Administration Protocol Meropenem 50 mls @ 100 mls/hr 12/23/17 14:00 12/24/17 05:06 Merrem Iv 1 Gm Premix IVPB 01/01/18 14:01 100 mls/hr Q8 FRANKY Administration Protocol Magnesium 2 gm/50 ml NS 2 gm in 50 mls @ 50 mls/hr 12/23/17 10:00 12/23/17 10 :06 Magnesium Sulfate 2 Gm/50 Ml Ns IVPB 50 mls/hr ONCE FRANKY Administration Fentanyl Citrate 1,000 mcg in 100 mls @ 2 mls/hr 12/23/17 15:37 12/24/17 00: 00 Fentanyl Citrate/Sodium Chloride 1 Mg/100 Ml IV 75 mcg/hr .Q24H PRN 7.5 mls/hr TITRATE PER MD ORDER Administration Protocol 20 MCG/HR Lactic Acid 1 ea 12/15/17 10:00 12/23/17 10:05 Lac-Hydrin 12% Cream (140 G) TOP 1 appl DAILY FRANKY Administration Levalbuterol HCl 0.63 mg 12/16/17 14:05 12/24/17 07:01 Xopenex IH 0.63 mg [id number] PRN Administration Shortness of Breath Lidocaine 0 gm 12/13/17 14:00 12/23/17 17:34 Lidocaine 5% TOP 1 applic TID FRANKY Administration Lorazepam 0.5 mg 12/23/17 12:01 Ativan IVP Q6H PRN Anxiety Protocol Methylprednisolone 20 mg 12/23/17 10:45 12/24/17 09:17 Solu-Medrol IVP 20 mg Q12 FRANKY Administration Non-Formulary Medication 1 applic 12/13/17 10:00 12/23/17 10:05 Dimethicone [Proshield Plus Skin Protectant] TOP Not Given DAILY FRANKY Ondansetron HCl 4 mg 12/12/17 15:48 12/15/17 15:18 Zofran Tab PO 4 mg Q6 PRN Administration Nausea/Vomiting Pantoprazole Sodium 40 mg 12/24/17 10:00 12/24/17 09:08 Protonix Inj IVP 40 mg DAILY FRANKY Administration Saliva Substitute 0 ml 12/13/17 17:00 12/24/17 09:20 Saliva Substitute PO 1 ml WM FRANKY Administration Vitamin A 1 ea 12/12/17 18:00 12/24/17 09:18 Vitamin A & D Oint Ud Foilpak TOP 1 ea TID FRANKY Administration - Patient Studies Lab Studies: Lab Studies 12/24/17 12/24/17 12/24/17 Range/Units 06:20 05:20 05:20 WBC 12.5 H (4.5-11.0) 10^3/ul RBC 3.47 L (3.5-6.1) 10^6/uL Hgb 9.9 L (14.0-18.0) g/dL Hct 31.6 L (42.0-52.0) % MCV 91.1 (80.0-105.0) fl MCH 28.5 (25.0-35.0) pg MCHC 31.3 (31.0-37.0) g/dl RDW 17.8 H (11.5-14.5) % Plt Count 152 (120.0-450.0) 10^3/uL MPV 10.3 (7.0-11.0) fl Gran % 95.6 H (50.0-68.0) % Lymph % (Auto) 3.0 L (22.0-35.0) % Dillon % (Auto) 1.4 (1.0-6.0) % Eos % (Auto) 0.0 L (1.5-5.0) % Baso % (Auto) 0.0 (0.0-3.0) % Gran # 11.93 H (1.4-6.5) Lymph # (Auto) 0.4 L (1.2-3.4) Dillon # (Auto) 0.2 (0.1-0.6) Eos # (Auto) 0.0 (0.0-0.7) Baso # (Auto) 0.00 (0.0-2.0) K/mm3 Neutrophils % (Manual) (50.0-70.0) % Lymphocytes % (Manual) (22.0-35.0) % Monocytes % (Manual) (1.0-6.0) % Eosinophils % (Manual) (0.0-3.0) % Platelet Evaluation (NORMAL) pCO2 61 H (35-45) mm/Hg pO2 183.0 H (80-100) mm/Hg HCO3 32.9 H (21-28) mmol/L ABG pH 7.34 L (7.35-7.45) ABG Total CO2 34.8 H (22-28) mmol.L ABG O2 Saturation 99.4 H (95-98) % ABG O2 Content 16.4 (15-23) ML/dl ABG Base Excess 5.5 H (-2.0-3.0) mmol/L ABG Hemoglobin 11.7 (11.7-17.4) g/dL ABG Carboxyhemoglobin 1.5 (0.5-1.5) % POC ABG HHb (Measured) 0.6 (0-5) % ABG Methemoglobin 0.7 (0.0-3.0) % ABG O2 Capacity 16.5 (16-24) mL/dl Hgb O2 Saturation 97.2 (95.0-98.0) % FiO2 100.0 % Sodium 138 (132-148) mmol/L Potassium 4.0 (3.6-5.0) mmol/L Chloride 100 (98-107) mmol/L Carbon Dioxide 35 H (21-33) mmol/L Anion Gap 7 L (10-20) BUN 14 (7-21) mg/dL Creatinine 0.4 L (0.8-1.5) mg/dl Est GFR ( Amer) > 60 Est GFR (Non-Af Amer) > 60 Random Glucose 176 H (70-110) mg/dL Calcium 7.0 L (8.4-10.5) mg/dL Total Bilirubin 0.8 (0.2-1.3) mg/dL AST 21 (17-59) U/L ALT 17 (7-56) U/L Alkaline Phosphatase 105 (38-126) U/L Troponin I ng/mL Total Protein 4.9 L (5.8-8.3) g/dL Albumin 2.2 L (3.0-4.8) g/dL Globulin 2.7 gm/dL Albumin/Globulin Ratio 0.8 L (1.1-1.8) Procalcitonin (0.19-0.49) NG/ML Urine Color (YELLOW) Urine Appearance (CLEAR) Urine pH (4.7-8.0) Ur Specific [place] (1.005-1.035) Urine Protein (<30 mg/dL) mg/dL Urine Glucose (UA) (NEGATIVE) mg/dL Urine Ketones (NEGATIVE) mg/dL Urine Blood (NEGATIVE) Urine Nitrate (NEGATIVE) Urine Bilirubin (NEGATIVE) Urine Urobilinogen (<1 E.U./dL) E.U./dL Ur Leukocyte Esterase (NEGATIVE) Merrill/uL Urine RBC (0-2) /hpf Urine WBC (0-6) /hpf Ur Epithelial Cells (0-5) /hpf Urine Bacteria (NEG) 12/23/17 12/23/17 12/23/17 Range/Units 22:30 18:30 18:17 WBC (4.5-11.0) 10^3/ul RBC (3.5-6.1) 10^6/uL Hgb (14.0-18.0) g/dL Hct (42.0-52.0) % MCV (80.0-105.0) fl MCH (25.0-35.0) pg MCHC (31.0-37.0) g/dl RDW (11.5-14.5) % Plt Count (120.0-450.0) 10^3/uL MPV (7.0-11.0) fl Gran % (50.0-68.0) % Lymph % (Auto) (22.0-35.0) % Dillon % (Auto) (1.0-6.0) % Eos % (Auto) (1.5-5.0) % Baso % (Auto) (0.0-3.0) % Gran # (1.4-6.5) Lymph # (Auto) (1.2-3.4) Dillon # (Auto) (0.1-0.6) Eos # (Auto) (0.0-0.7) Baso # (Auto) (0.0-2.0) K/mm3 Neutrophils % (Manual) (50.0-70.0) % Lymphocytes % (Manual) (22.0-35.0) % Monocytes % (Manual) (1.0-6.0) % Eosinophils % (Manual) (0.0-3.0) % Platelet Evaluation (NORMAL) pCO2 66 H (35-45) mm/Hg pO2 88.0 (80-100) mm/Hg HCO3 32.5 H (21-28) mmol/L ABG pH 7.30 L (7.35-7.45) ABG Total CO2 34.5 H (22-28) mmol.L ABG O2 Saturation 97.2 (95-98) % ABG O2 Content 13.8 L (15-23) ML/dl ABG Base Excess 4.7 H (-2.0-3.0) mmol/L ABG Hemoglobin 10.3 L (11.7-17.4) g/dL ABG Carboxyhemoglobin 1.9 H (0.5-1.5) % POC ABG HHb (Measured) 2.7 (0-5) % ABG Methemoglobin 0.9 (0.0-3.0) % ABG O2 Capacity 14.2 L (16-24) mL/dl Hgb O2 Saturation 94.4 L (95.0-98.0) % FiO2 100.0 % Sodium 137 (132-148) mmol/L Potassium 3.9 (3.6-5.0) mmol/L Chloride 99 (98-107) mmol/L Carbon Dioxide 32 (21-33) mmol/L Anion Gap 9 L (10-20) BUN 13 (7-21) mg/dL Creatinine 0.3 L (0.8-1.5) mg/dl Est GFR ( Amer) > 60 Est GFR (Non-Af Amer) > 60 Random Glucose 223 H (70-110) mg/dL Calcium 6.7 L* (8.4-10.5) mg/dL Total Bilirubin 1.1 (0.2-1.3) mg/dL AST 25 (17-59) U/L ALT 31 (7-56) U/L Alkaline Phosphatase 106 (38-126) U/L Troponin I 0.02 D < 0.01 ng/mL Total Protein 4.8 L (5.8-8.3) g/dL Albumin 2.1 L (3.0-4.8) g/dL Globulin 2.7 gm/dL Albumin/Globulin Ratio 0.8 L (1.1-1.8) Procalcitonin (0.19-0.49) NG/ML Urine Color (YELLOW) Urine Appearance (CLEAR) Urine pH (4.7-8.0) Ur Specific [place] (1.005-1.035) Urine Protein (<30 mg/dL) mg/dL Urine Glucose (UA) (NEGATIVE) mg/dL Urine Ketones (NEGATIVE) mg/dL Urine Blood (NEGATIVE) Urine Nitrate (NEGATIVE) Urine Bilirubin (NEGATIVE) Urine Urobilinogen (<1 E.U./dL) E.U./dL Ur Leukocyte Esterase (NEGATIVE) Merrill/uL Urine RBC (0-2) /hpf Urine WBC (0-6) /hpf Ur Epithelial Cells (0-5) /hpf Urine Bacteria (NEG) 12/23/17 12/23/17 12/23/17 Range/Units 17:35 11:20 09:20 WBC (4.5-11.0) 10^3/ul RBC (3.5-6.1) 10^6/uL Hgb (14.0-18.0) g/dL Hct (42.0-52.0) % MCV (80.0-105.0) fl MCH (25.0-35.0) pg MCHC (31.0-37.0) g/dl RDW (11.5-14.5) % Plt Count (120.0-450.0) 10^3/uL MPV (7.0-11.0) fl Gran % (50.0-68.0) % Lymph % (Auto) (22.0-35.0) % Dillon % (Auto) (1.0-6.0) % Eos % (Auto) (1.5-5.0) % Baso % (Auto) (0.0-3.0) % Gran # (1.4-6.5) Lymph # (Auto) (1.2-3.4) Dillon # (Auto) (0.1-0.6) Eos # (Auto) (0.0-0.7) Baso # (Auto) (0.0-2.0) K/mm3 Neutrophils % (Manual) (50.0-70.0) % Lymphocytes % (Manual) (22.0-35.0) % Monocytes % (Manual) (1.0-6.0) % Eosinophils % (Manual) (0.0-3.0) % Platelet Evaluation (NORMAL) pCO2 45 (35-45) mm/Hg pO2 70.0 L (80-100) mm/Hg HCO3 35.1 H (21-28) mmol/L ABG pH 7.50 H (7.35-7.45) ABG Total CO2 36.5 H (22-28) mmol.L ABG O2 Saturation 96.5 (95-98) % ABG O2 Content 16.2 (15-23) ML/dl ABG Base Excess 10.6 H (-2.0-3.0) mmol/L ABG Hemoglobin 12.2 (11.7-17.4) g/dL ABG Carboxyhemoglobin 1.7 H (0.5-1.5) % POC ABG HHb (Measured) 3.4 (0-5) % ABG Methemoglobin 0.8 (0.0-3.0) % ABG O2 Capacity 16.8 (16-24) mL/dl Hgb O2 Saturation 94.1 L (95.0-98.0) % FiO2 100.0 % Sodium (132-148) mmol/L Potassium (3.6-5.0) mmol/L Chloride (98-107) mmol/L Carbon Dioxide (21-33) mmol/L Anion Gap (10-20) BUN (7-21) mg/dL Creatinine (0.8-1.5) mg/dl Est GFR ( Amer) Est GFR (Non-Af Amer) Random Glucose (70-110) mg/dL Calcium (8.4-10.5) mg/dL Total Bilirubin (0.2-1.3) mg/dL AST (17-59) U/L ALT (7-56) U/L Alkaline Phosphatase (38-126) U/L Troponin I ng/mL Total Protein (5.8-8.3) g/dL Albumin (3.0-4.8) g/dL Globulin gm/dL Albumin/Globulin Ratio (1.1-1.8) Procalcitonin 0.08 L (0.19-0.49) NG/ML Urine Color Yellow (YELLOW) Urine Appearance Clear (CLEAR) Urine pH 7.5 (4.7-8.0) Ur Specific [place] 1.020 (1.005-1.035) Urine Protein Trace H (<30 mg/dL) mg/dL Urine Glucose (UA) Negative (NEGATIVE) mg/dL Urine Ketones Negative (NEGATIVE) mg/dL Urine Blood Negative (NEGATIVE) Urine Nitrate Negative (NEGATIVE) Urine Bilirubin Negative (NEGATIVE) Urine Urobilinogen 4.0 H (<1 E.U./dL) E.U./dL Ur Leukocyte Esterase Negative (NEGATIVE) Merrill/uL Urine RBC Negative (0-2) /hpf Urine WBC 5 - 10 (0-6) /hpf Ur Epithelial Cells 4 - 5 (0-5) /hpf Urine Bacteria Mod (NEG) 12/23/17 Range/Units 08:20 WBC (4.5-11.0) 10^3/ul RBC (3.5-6.1) 10^6/uL Hgb (14.0-18.0) g/dL Hct (42.0-52.0) % MCV (80.0-105.0) fl MCH (25.0-35.0) pg MCHC (31.0-37.0) g/dl RDW (11.5-14.5) % Plt Count (120.0-450.0) 10^3/uL MPV (7.0-11.0) fl Gran % (50.0-68.0) % Lymph % (Auto) (22.0-35.0) % Dillon % (Auto) (1.0-6.0) % Eos % (Auto) (1.5-5.0) % Baso % (Auto) (0.0-3.0) % Gran # (1.4-6.5) Lymph # (Auto) (1.2-3.4) Dillon # (Auto) (0.1-0.6) Eos # (Auto) (0.0-0.7) Baso # (Auto) (0.0-2.0) K/mm3 Neutrophils % (Manual) 93 H (50.0-70.0) % Lymphocytes % (Manual) 1 L (22.0-35.0) % Monocytes % (Manual) 5 (1.0-6.0) % Eosinophils % (Manual) 1 (0.0-3.0) % Platelet Evaluation Normal (NORMAL) pCO2 (35-45) mm/Hg pO2 (80-100) mm/Hg HCO3 (21-28) mmol/L ABG pH (7.35-7.45) ABG Total CO2 (22-28) mmol.L ABG O2 Saturation (95-98) % ABG O2 Content (15-23) ML/dl ABG Base Excess (-2.0-3.0) mmol/L ABG Hemoglobin (11.7-17.4) g/dL ABG Carboxyhemoglobin (0.5-1.5) % POC ABG HHb (Measured) (0-5) % ABG Methemoglobin (0.0-3.0) % ABG O2 Capacity (16-24) mL/dl Hgb O2 Saturation (95.0-98.0) % FiO2 % Sodium (132-148) mmol/L Potassium (3.6-5.0) mmol/L Chloride (98-107) mmol/L Carbon Dioxide (21-33) mmol/L Anion Gap (10-20) BUN (7-21) mg/dL Creatinine (0.8-1.5) mg/dl Est GFR ( Amer) Est GFR (Non-Af Amer) Random Glucose (70-110) mg/dL Calcium (8.4-10.5) mg/dL Total Bilirubin (0.2-1.3) mg/dL AST (17-59) U/L ALT (7-56) U/L Alkaline Phosphatase (38-126) U/L Troponin I ng/mL Total Protein (5.8-8.3) g/dL Albumin (3.0-4.8) g/dL Globulin gm/dL Albumin/Globulin Ratio (1.1-1.8) Procalcitonin (0.19-0.49) NG/ML Urine Color (YELLOW) Urine Appearance (CLEAR) Urine pH (4.7-8.0) Ur Specific [place] (1.005-1.035) Urine Protein (<30 mg/dL) mg/dL Urine Glucose (UA) (NEGATIVE) mg/dL Urine Ketones (NEGATIVE) mg/dL Urine Blood (NEGATIVE) Urine Nitrate (NEGATIVE) Urine Bilirubin (NEGATIVE) Urine Urobilinogen (<1 E.U./dL) E.U./dL Ur Leukocyte Esterase (NEGATIVE) Merrill/uL Urine RBC (0-2) /hpf Urine WBC (0-6) /hpf Ur Epithelial Cells (0-5) /hpf Urine Bacteria (NEG) Laboratory Results - last 24 hr 12/23/17 12/23/17 12/23/17 08:20 09:20 11:20 WBC RBC Hgb Hct MCV MCH MCHC RDW Plt Count MPV Gran % Lymph % (Auto) Dillon % (Auto) Eos % (Auto) Baso % (Auto) Gran # Lymph # (Auto) Dillon # (Auto) Eos # (Auto) Baso # (Auto) Neutrophils % (Manual) 93 H Lymphocytes % (Manual) 1 L Monocytes % (Manual) 5 Eosinophils % (Manual) 1 Platelet Evaluation Normal pCO2 45 pO2 70.0 L HCO3 35.1 H ABG pH 7.50 H ABG Total CO2 36.5 H ABG O2 Saturation 96.5 ABG O2 Content 16.2 ABG Base Excess 10.6 H ABG Hemoglobin 12.2 ABG Carboxyhemoglobin 1.7 H POC ABG HHb (Measured) 3.4 ABG Methemoglobin 0.8 ABG O2 Capacity 16.8 Hgb O2 Saturation 94.1 L FiO2 100.0 Sodium Potassium Chloride Carbon Dioxide Anion Gap BUN Creatinine Est GFR ( Amer) Est GFR (Non-Af Amer) Random Glucose Calcium Total Bilirubin AST ALT Alkaline Phosphatase Troponin I Total Protein Albumin Globulin Albumin/Globulin Ratio Procalcitonin 0.08 L Urine Color Urine Appearance Urine pH Ur Specific [place] Urine Protein Urine Glucose (UA) Urine Ketones Urine Blood Urine Nitrate Urine Bilirubin Urine Urobilinogen Ur Leukocyte Esterase Urine RBC Urine WBC Ur Epithelial Cells Urine Bacteria 12/23/17 12/23/17 12/23/17 17:35 18:17 18:30 WBC RBC Hgb Hct MCV MCH MCHC RDW Plt Count MPV Gran % Lymph % (Auto) Dillon % (Auto) Eos % (Auto) Baso % (Auto) Gran # Lymph # (Auto) Dillon # (Auto) Eos # (Auto) Baso # (Auto) Neutrophils % (Manual) Lymphocytes % (Manual) Monocytes % (Manual) Eosinophils % (Manual) Platelet Evaluation pCO2 66 H pO2 88.0 HCO3 32.5 H ABG pH 7.30 L ABG Total CO2 34.5 H ABG O2 Saturation 97.2 ABG O2 Content 13.8 L ABG Base Excess 4.7 H ABG Hemoglobin 10.3 L ABG Carboxyhemoglobin 1.9 H POC ABG HHb (Measured) 2.7 ABG Methemoglobin 0.9 ABG O2 Capacity 14.2 L Hgb O2 Saturation 94.4 L FiO2 100.0 Sodium Potassium Chloride Carbon Dioxide Anion Gap BUN Creatinine Est GFR ( Amer) Est GFR (Non-Af Amer) Random Glucose Calcium Total Bilirubin AST ALT Alkaline Phosphatase Troponin I < 0.01 Total Protein Albumin Globulin Albumin/Globulin Ratio Procalcitonin Urine Color Yellow Urine Appearance Clear Urine pH 7.5 Ur Specific [place] 1.020 Urine Protein Trace H Urine Glucose (UA) Negative Urine Ketones Negative Urine Blood Negative Urine Nitrate Negative Urine Bilirubin Negative Urine Urobilinogen 4.0 H Ur Leukocyte Esterase Negative Urine RBC Negative Urine WBC 5 - 10 Ur Epithelial Cells 4 - 5 Urine Bacteria Mod 12/23/17 12/24/17 12/24/17 22:30 05:20 05:20 WBC 12.5 H RBC 3.47 L Hgb 9.9 L Hct 31.6 L MCV 91.1 MCH 28.5 MCHC 31.3 RDW 17.8 H Plt Count 152 MPV 10.3 Gran % 95.6 H Lymph % (Auto) 3.0 L Dillon % (Auto) 1.4 Eos % (Auto) 0.0 L Baso % (Auto) 0.0 Gran # 11.93 H Lymph # (Auto) 0.4 L Dillon # (Auto) 0.2 Eos # (Auto) 0.0 Baso # (Auto) 0.00 Neutrophils % (Manual) Lymphocytes % (Manual) Monocytes % (Manual) Eosinophils % (Manual) Platelet Evaluation pCO2 pO2 HCO3 ABG pH ABG Total CO2 ABG O2 Saturation ABG O2 Content ABG Base Excess ABG Hemoglobin ABG Carboxyhemoglobin POC ABG HHb (Measured) ABG Methemoglobin ABG O2 Capacity Hgb O2 Saturation FiO2 Sodium 137 138 Potassium 3.9 4.0 Chloride 99 100 Carbon Dioxide 32 35 H Anion Gap 9 L 7 L BUN 13 14 Creatinine 0.3 L 0.4 L Est GFR ( Amer) > 60 > 60 Est GFR (Non-Af Amer) > 60 > 60 Random Glucose 223 H 176 H Calcium 6.7 L* 7.0 L Total Bilirubin 1.1 0.8 AST 25 21 ALT 31 17 Alkaline Phosphatase 106 105 Troponin I 0.02 D Total Protein 4.8 L 4.9 L Albumin 2.1 L 2.2 L Globulin 2.7 2.7 Albumin/Globulin Ratio 0.8 L 0.8 L Procalcitonin Urine Color Urine Appearance Urine pH Ur Specific [place] Urine Protein Urine Glucose (UA) Urine Ketones Urine Blood Urine Nitrate Urine Bilirubin Urine Urobilinogen Ur Leukocyte Esterase Urine RBC Urine WBC Ur Epithelial Cells Urine Bacteria 12/24/17 06:20 WBC RBC Hgb Hct MCV MCH MCHC RDW Plt Count MPV Gran % Lymph % (Auto) Dillon % (Auto) Eos % (Auto) Baso % (Auto) Gran # Lymph # (Auto) Dillon # (Auto) Eos # (Auto) Baso # (Auto) Neutrophils % (Manual) Lymphocytes % (Manual) Monocytes % (Manual) Eosinophils % (Manual) Platelet Evaluation pCO2 61 H pO2 183.0 H HCO3 32.9 H ABG pH 7.34 L ABG Total CO2 34.8 H ABG O2 Saturation 99.4 H ABG O2 Content 16.4 ABG Base Excess 5.5 H ABG Hemoglobin 11.7 ABG Carboxyhemoglobin 1.5 POC ABG HHb (Measured) 0.6 ABG Methemoglobin 0.7 ABG O2 Capacity 16.5 Hgb O2 Saturation 97.2 FiO2 100.0 Sodium Potassium Chloride Carbon Dioxide Anion Gap BUN Creatinine Est GFR ( Amer) Est GFR (Non-Af Amer) Random Glucose Calcium Total Bilirubin AST ALT Alkaline Phosphatase Troponin I Total Protein Albumin Globulin Albumin/Globulin Ratio Procalcitonin Urine Color Urine Appearance Urine pH Ur Specific [place] Urine Protein Urine Glucose (UA) Urine Ketones Urine Blood Urine Nitrate Urine Bilirubin Urine Urobilinogen Ur Leukocyte Esterase Urine RBC Urine WBC Ur Epithelial Cells Urine Bacteria Critical Care Progress Note - Nutrition Nutrition: Nutrition Category Date Time Status NPO Diet [DIET] Diets 12/16/17 Dinner Ordered Assessment/Plan - Assessment and Plan (Free Text) Assessment: Assessment: This is a 72 year old male with extensive PMH significant for COPD, anemia and metastatic non small cell lung cancer stage 4 presenting to the ICU for management of hypoxic respiratory failure secondary to sepsis due to coagulase negative staph bacteremia and new right lower lobe aspiration pneumonia. Plan: Neuro: -maintain normothermia -neuro on consult Lungs: -maintain SaO2 > 90% -will attempt to extubate -Current vent settings are RR of 13, O2 concentration of 60%, PEEP of 5 -ABG today showed pH 7.34, pCO2 61, PO2 183, bicarb 32.9. Chronic compensated primary respiratory acidosis with metabolic acidosis -central line placed and intubation done yesterday -continue solumedrol 20mg IV q12 -xopenex -duonebs -pulm, radiation oncology on consult Cardio: -cardizem drip stopped this morning, cardizem 30mg PO Q6 started -holding fluids for now -maintain MAP >65 -echo reviewed -lasix 20mg IV ID: -WBC today is 12.5 down from previous 13.3. Afebrile -On day 12 out of 14 day course vancomycin for methicillin resistant coag- negative staph bacteremia suspicious for port-a-cath. On day 2 merrum for new healthcare associated pneumonia -urine, blood, sputum cultures pending. C diff and MRSA screen pending -last procalc is 0.08 -ID on consult Renal: -BUN/Cr WNL, will monitor -avoid nephrotoxic agents and hypochloremia -maintain euvolemia Heme: -Hg today is 9.9 down from 11.2. Will continue to monitor closely. Hold transfusions for now. Endo: -maintain euglycemia GI: -protonix ppx -PEG tube -monitor LFTs -GI, surgery on consult <Jerad Bonilla - Last Filed: 12/24/17 11:53> CCU Objective - Vital Signs / Intake & Output Vital Signs (Last 4 hours): Vital Signs Pulse BP Pulse Ox 12/24/17 10:40 82 92 L 12/24/17 10:30 80 92 L 12/24/17 10:20 82 93 L 12/24/17 10:10 81 91 L 12/24/17 10:00 80 95/40 L 92 L 12/24/17 09:50 81 92 L 12/24/17 09:40 81 93 L 12/24/17 09:30 82 94 L 12/24/17 09:20 77 94 L 12/24/17 09:10 80 94 L 12/24/17 09:07 84 123/64 12/24/17 09:00 81 97/47 L 94 L 12/24/17 08:56 80 97/40 L 95 12/24/17 08:50 82 93 L 12/24/17 08:40 84 92 L 12/24/17 08:30 85 92 L 12/24/17 08:20 95 H 93 L 12/24/17 08:10 92 L 12/24/17 08:00 80 99/49 L 91 L 12/24/17 07:53 85 12/24/17 07:52 81 12/24/17 07:51 84 Intake and Output (Last 8hrs): Intake & Output 12/23/17 12/24/17 12/24/17 22:59 06:59 14:59 Intake Total 3030.0 1306 Output Total 150 125 Balance 2880.0 1181 Intake: IV 2730.0 156 Right Subclavian 100 43 Subclavian 2550 88 Tube Feeding 300 800 Other 350 Output: Urine 150 125 Condom 150 125 Stool 0 Other: # Bowel Movements 1 - Medications Active Medications: Active Medications Generic Name Dose Route Start Last Admin Trade Name Freq PRN Reason Stop Dose Admin Acetaminophen 650 mg 12/22/17 12:02 Tylenol 160mg/5ml Oral Soln PEG Q4 PRN Pain, Mild (1-3) Arformoterol Tartrate 15 mcg 12/12/17 08:00 12/24/17 07:00 Brovana IH 15 mcg [id number] FRANKY Administration Collagenase 1 gm 12/12/17 12:15 12/24/17 09:20 Santyl TOP 1 applic DAILY FRANKY Administration Al Hydrox/Mg Hydrox/ 0 ml 12/12/17 15:59 Simethicone 30 ml/ PO Diphenhydramine HCl 75 mg/ Q2H PRN Lidocaine 30 ml MOUTH/THROAT PAIN Diltiazem HCl 30 mg 12/24/17 08:45 12/24/17 09:07 Cardizem PO 30 mg Q6 FRANKY Administration Enoxaparin Sodium 30 mg 12/13/17 10:00 12/24/17 09:07 Lovenox SC 30 mg DAILY FRANKY Administration Protocol Furosemide 20 mg 12/24/17 10:00 12/24/17 09:07 Lasix IVP 20 mg DAILY FRANKY Administration Vancomycin HCl 1 gm in 250 mls @ 167 mls/hr 12/22/17 23:30 12/23/17 22:59 Vancomycin 1gm IVPB 167 mls/hr Q12H FRANKY Administration Protocol Meropenem 50 mls @ 100 mls/hr 12/23/17 14:00 12/24/17 05:06 Merrem Iv 1 Gm Premix IVPB 01/01/18 14:01 100 mls/hr Q8 FRANKY Administration Protocol Magnesium 2 gm/50 ml NS 2 gm in 50 mls @ 50 mls/hr 12/23/17 10:00 12/23/17 10 :06 Magnesium Sulfate 2 Gm/50 Ml Ns IVPB 50 mls/hr ONCE FRANKY Administration Fentanyl Citrate 1,000 mcg in 100 mls @ 2 mls/hr 12/23/17 15:37 12/24/17 00: 00 Fentanyl Citrate/Sodium Chloride 1 Mg/100 Ml IV 75 mcg/hr .Q24H PRN 7.5 mls/hr TITRATE PER MD ORDER Administration Protocol 20 MCG/HR Lactic Acid 1 ea 12/15/17 10:00 12/23/17 10:05 Lac-Hydrin 12% Cream (140 G) TOP 1 appl DAILY FRANKY Administration Levalbuterol HCl 0.63 mg 12/16/17 14:05 12/24/17 07:01 Xopenex IH 0.63 mg [id number] PRN Administration Shortness of Breath Lidocaine 0 gm 12/13/17 14:00 12/23/17 17:34 Lidocaine 5% TOP 1 applic TID FRANKY Administration Lorazepam 0.5 mg 12/23/17 12:01 Ativan IVP Q6H PRN Anxiety Protocol Methylprednisolone 20 mg 12/23/17 10:45 12/24/17 09:17 Solu-Medrol IVP 20 mg Q12 FRANKY Administration Non-Formulary Medication 1 applic 12/13/17 10:00 12/23/17 10:05 Dimethicone [Proshield Plus Skin Protectant] TOP Not Given DAILY FRANKY Ondansetron HCl 4 mg 12/12/17 15:48 12/15/17 15:18 Zofran Tab PO 4 mg Q6 PRN Administration Nausea/Vomiting Pantoprazole Sodium 40 mg 12/24/17 10:00 12/24/17 09:08 Protonix Inj IVP 40 mg DAILY FRANKY Administration Saliva Substitute 0 ml 12/13/17 17:00 12/24/17 09:20 Saliva Substitute PO 1 ml WM FRANKY Administration Vitamin A 1 ea 12/12/17 18:00 12/24/17 09:18 Vitamin A & D Oint Ud Foilpak TOP 1 ea TID FRANKY Administration - Patient Studies Lab Studies: Lab Studies 12/24/17 12/24/17 12/24/17 Range/Units 06:20 05:20 05:20 WBC 12.5 H (4.5-11.0) 10^3/ul RBC 3.47 L (3.5-6.1) 10^6/uL Hgb 9.9 L (14.0-18.0) g/dL Hct 31.6 L (42.0-52.0) % MCV 91.1 (80.0-105.0) fl MCH 28.5 (25.0-35.0) pg MCHC 31.3 (31.0-37.0) g/dl RDW 17.8 H (11.5-14.5) % Plt Count 152 (120.0-450.0) 10^3/uL MPV 10.3 (7.0-11.0) fl Gran % 95.6 H (50.0-68.0) % Lymph % (Auto) 3.0 L (22.0-35.0) % Dillon % (Auto) 1.4 (1.0-6.0) % Eos % (Auto) 0.0 L (1.5-5.0) % Baso % (Auto) 0.0 (0.0-3.0) % Gran # 11.93 H (1.4-6.5) Lymph # (Auto) 0.4 L (1.2-3.4) Dillon # (Auto) 0.2 (0.1-0.6) Eos # (Auto) 0.0 (0.0-0.7) Baso # (Auto) 0.00 (0.0-2.0) K/mm3 pCO2 61 H (35-45) mm/Hg pO2 183.0 H (80-100) mm/Hg HCO3 32.9 H (21-28) mmol/L ABG pH 7.34 L (7.35-7.45) ABG Total CO2 34.8 H (22-28) mmol.L ABG O2 Saturation 99.4 H (95-98) % ABG O2 Content 16.4 (15-23) ML/dl ABG Base Excess 5.5 H (-2.0-3.0) mmol/L ABG Hemoglobin 11.7 (11.7-17.4) g/dL ABG Carboxyhemoglobin 1.5 (0.5-1.5) % POC ABG HHb (Measured) 0.6 (0-5) % ABG Methemoglobin 0.7 (0.0-3.0) % ABG O2 Capacity 16.5 (16-24) mL/dl Hgb O2 Saturation 97.2 (95.0-98.0) % FiO2 100.0 % Sodium 138 (132-148) mmol/L Potassium 4.0 (3.6-5.0) mmol/L Chloride 100 (98-107) mmol/L Carbon Dioxide 35 H (21-33) mmol/L Anion Gap 7 L (10-20) BUN 14 (7-21) mg/dL Creatinine 0.4 L (0.8-1.5) mg/dl Est GFR ( Amer) > 60 Est GFR (Non-Af Amer) > 60 Random Glucose 176 H (70-110) mg/dL Calcium 7.0 L (8.4-10.5) mg/dL Total Bilirubin 0.8 (0.2-1.3) mg/dL AST 21 (17-59) U/L ALT 17 (7-56) U/L Alkaline Phosphatase 105 (38-126) U/L Troponin I ng/mL Total Protein 4.9 L (5.8-8.3) g/dL Albumin 2.2 L (3.0-4.8) g/dL Globulin 2.7 gm/dL Albumin/Globulin Ratio 0.8 L (1.1-1.8) Procalcitonin (0.19-0.49) NG/ML Urine Color (YELLOW) Urine Appearance (CLEAR) Urine pH (4.7-8.0) Ur Specific [place] (1.005-1.035) Urine Protein (<30 mg/dL) mg/dL Urine Glucose (UA) (NEGATIVE) mg/dL Urine Ketones (NEGATIVE) mg/dL Urine Blood (NEGATIVE) Urine Nitrate (NEGATIVE) Urine Bilirubin (NEGATIVE) Urine Urobilinogen (<1 E.U./dL) E.U./dL Ur Leukocyte Esterase (NEGATIVE) Merrill/uL Urine RBC (0-2) /hpf Urine WBC (0-6) /hpf Ur Epithelial Cells (0-5) /hpf Urine Bacteria (NEG) 12/23/17 12/23/17 12/23/17 Range/Units 22:30 18:30 18:17 WBC (4.5-11.0) 10^3/ul RBC (3.5-6.1) 10^6/uL Hgb (14.0-18.0) g/dL Hct (42.0-52.0) % MCV (80.0-105.0) fl MCH (25.0-35.0) pg MCHC (31.0-37.0) g/dl RDW (11.5-14.5) % Plt Count (120.0-450.0) 10^3/uL MPV (7.0-11.0) fl Gran % (50.0-68.0) % Lymph % (Auto) (22.0-35.0) % Dillon % (Auto) (1.0-6.0) % Eos % (Auto) (1.5-5.0) % Baso % (Auto) (0.0-3.0) % Gran # (1.4-6.5) Lymph # (Auto) (1.2-3.4) Dillon # (Auto) (0.1-0.6) Eos # (Auto) (0.0-0.7) Baso # (Auto) (0.0-2.0) K/mm3 pCO2 66 H (35-45) mm/Hg pO2 88.0 (80-100) mm/Hg HCO3 32.5 H (21-28) mmol/L ABG pH 7.30 L (7.35-7.45) ABG Total CO2 34.5 H (22-28) mmol.L ABG O2 Saturation 97.2 (95-98) % ABG O2 Content 13.8 L (15-23) ML/dl ABG Base Excess 4.7 H (-2.0-3.0) mmol/L ABG Hemoglobin 10.3 L (11.7-17.4) g/dL ABG Carboxyhemoglobin 1.9 H (0.5-1.5) % POC ABG HHb (Measured) 2.7 (0-5) % ABG Methemoglobin 0.9 (0.0-3.0) % ABG O2 Capacity 14.2 L (16-24) mL/dl Hgb O2 Saturation 94.4 L (95.0-98.0) % FiO2 100.0 % Sodium 137 (132-148) mmol/L Potassium 3.9 (3.6-5.0) mmol/L Chloride 99 (98-107) mmol/L Carbon Dioxide 32 (21-33) mmol/L Anion Gap 9 L (10-20) BUN 13 (7-21) mg/dL Creatinine 0.3 L (0.8-1.5) mg/dl Est GFR ( Amer) > 60 Est GFR (Non-Af Amer) > 60 Random Glucose 223 H (70-110) mg/dL Calcium 6.7 L* (8.4-10.5) mg/dL Total Bilirubin 1.1 (0.2-1.3) mg/dL AST 25 (17-59) U/L ALT 31 (7-56) U/L Alkaline Phosphatase 106 (38-126) U/L Troponin I 0.02 D < 0.01 ng/mL Total Protein 4.8 L (5.8-8.3) g/dL Albumin 2.1 L (3.0-4.8) g/dL Globulin 2.7 gm/dL Albumin/Globulin Ratio 0.8 L (1.1-1.8) Procalcitonin (0.19-0.49) NG/ML Urine Color (YELLOW) Urine Appearance (CLEAR) Urine pH (4.7-8.0) Ur Specific [place] (1.005-1.035) Urine Protein (<30 mg/dL) mg/dL Urine Glucose (UA) (NEGATIVE) mg/dL Urine Ketones (NEGATIVE) mg/dL Urine Blood (NEGATIVE) Urine Nitrate (NEGATIVE) Urine Bilirubin (NEGATIVE) Urine Urobilinogen (<1 E.U./dL) E.U./dL Ur Leukocyte Esterase (NEGATIVE) Merrill/uL Urine RBC (0-2) /hpf Urine WBC (0-6) /hpf Ur Epithelial Cells (0-5) /hpf Urine Bacteria (NEG) 12/23/17 12/23/17 Range/Units 17:35 09:20 WBC (4.5-11.0) 10^3/ul RBC (3.5-6.1) 10^6/uL Hgb (14.0-18.0) g/dL Hct (42.0-52.0) % MCV (80.0-105.0) fl MCH (25.0-35.0) pg MCHC (31.0-37.0) g/dl RDW (11.5-14.5) % Plt Count (120.0-450.0) 10^3/uL MPV (7.0-11.0) fl Gran % (50.0-68.0) % Lymph % (Auto) (22.0-35.0) % Dillon % (Auto) (1.0-6.0) % Eos % (Auto) (1.5-5.0) % Baso % (Auto) (0.0-3.0) % Gran # (1.4-6.5) Lymph # (Auto) (1.2-3.4) Dillon # (Auto) (0.1-0.6) Eos # (Auto) (0.0-0.7) Baso # (Auto) (0.0-2.0) K/mm3 pCO2 (35-45) mm/Hg pO2 (80-100) mm/Hg HCO3 (21-28) mmol/L ABG pH (7.35-7.45) ABG Total CO2 (22-28) mmol.L ABG O2 Saturation (95-98) % ABG O2 Content (15-23) ML/dl ABG Base Excess (-2.0-3.0) mmol/L ABG Hemoglobin (11.7-17.4) g/dL ABG Carboxyhemoglobin (0.5-1.5) % POC ABG HHb (Measured) (0-5) % ABG Methemoglobin (0.0-3.0) % ABG O2 Capacity (16-24) mL/dl Hgb O2 Saturation (95.0-98.0) % FiO2 % Sodium (132-148) mmol/L Potassium (3.6-5.0) mmol/L Chloride (98-107) mmol/L Carbon Dioxide (21-33) mmol/L Anion Gap (10-20) BUN (7-21) mg/dL Creatinine (0.8-1.5) mg/dl Est GFR ( Amer) Est GFR (Non-Af Amer) Random Glucose (70-110) mg/dL Calcium (8.4-10.5) mg/dL Total Bilirubin (0.2-1.3) mg/dL AST (17-59) U/L ALT (7-56) U/L Alkaline Phosphatase (38-126) U/L Troponin I ng/mL Total Protein (5.8-8.3) g/dL Albumin (3.0-4.8) g/dL Globulin gm/dL Albumin/Globulin Ratio (1.1-1.8) Procalcitonin 0.08 L (0.19-0.49) NG/ML Urine Color Yellow (YELLOW) Urine Appearance Clear (CLEAR) Urine pH 7.5 (4.7-8.0) Ur Specific [place] 1.020 (1.005-1.035) Urine Protein Trace H (<30 mg/dL) mg/dL Urine Glucose (UA) Negative (NEGATIVE) mg/dL Urine Ketones Negative (NEGATIVE) mg/dL Urine Blood Negative (NEGATIVE) Urine Nitrate Negative (NEGATIVE) Urine Bilirubin Negative (NEGATIVE) Urine Urobilinogen 4.0 H (<1 E.U./dL) E.U./dL Ur Leukocyte Esterase Negative (NEGATIVE) Merrill/uL Urine RBC Negative (0-2) /hpf Urine WBC 5 - 10 (0-6) /hpf Ur Epithelial Cells 4 - 5 (0-5) /hpf Urine Bacteria Mod (NEG) Laboratory Results - last 24 hr 12/23/17 12/23/17 12/23/17 09:20 17:35 18:17 WBC RBC Hgb Hct MCV MCH MCHC RDW Plt Count MPV Gran % Lymph % (Auto) Dillon % (Auto) Eos % (Auto) Baso % (Auto) Gran # Lymph # (Auto) Dillon # (Auto) Eos # (Auto) Baso # (Auto) pCO2 66 H pO2 88.0 HCO3 32.5 H ABG pH 7.30 L ABG Total CO2 34.5 H ABG O2 Saturation 97.2 ABG O2 Content 13.8 L ABG Base Excess 4.7 H ABG Hemoglobin 10.3 L ABG Carboxyhemoglobin 1.9 H POC ABG HHb (Measured) 2.7 ABG Methemoglobin 0.9 ABG O2 Capacity 14.2 L Hgb O2 Saturation 94.4 L FiO2 100.0 Sodium Potassium Chloride Carbon Dioxide Anion Gap BUN Creatinine Est GFR ( Amer) Est GFR (Non-Af Amer) Random Glucose Calcium Total Bilirubin AST ALT Alkaline Phosphatase Troponin I Total Protein Albumin Globulin Albumin/Globulin Ratio Procalcitonin 0.08 L Urine Color Yellow Urine Appearance Clear Urine pH 7.5 Ur Specific [place] 1.020 Urine Protein Trace H Urine Glucose (UA) Negative Urine Ketones Negative Urine Blood Negative Urine Nitrate Negative Urine Bilirubin Negative Urine Urobilinogen 4.0 H Ur Leukocyte Esterase Negative Urine RBC Negative Urine WBC 5 - 10 Ur Epithelial Cells 4 - 5 Urine Bacteria Mod 12/23/17 12/23/17 12/24/17 18:30 22:30 05:20 WBC 12.5 H RBC 3.47 L Hgb 9.9 L Hct 31.6 L MCV 91.1 MCH 28.5 MCHC 31.3 RDW 17.8 H Plt Count 152 MPV 10.3 Gran % 95.6 H Lymph % (Auto) 3.0 L Dillon % (Auto) 1.4 Eos % (Auto) 0.0 L Baso % (Auto) 0.0 Gran # 11.93 H Lymph # (Auto) 0.4 L Dillon # (Auto) 0.2 Eos # (Auto) 0.0 Baso # (Auto) 0.00 pCO2 pO2 HCO3 ABG pH ABG Total CO2 ABG O2 Saturation ABG O2 Content ABG Base Excess ABG Hemoglobin ABG Carboxyhemoglobin POC ABG HHb (Measured) ABG Methemoglobin ABG O2 Capacity Hgb O2 Saturation FiO2 Sodium 137 Potassium 3.9 Chloride 99 Carbon Dioxide 32 Anion Gap 9 L BUN 13 Creatinine 0.3 L Est GFR ( Amer) > 60 Est GFR (Non-Af Amer) > 60 Random Glucose 223 H Calcium 6.7 L* Total Bilirubin 1.1 AST 25 ALT 31 Alkaline Phosphatase 106 Troponin I < 0.01 0.02 D Total Protein 4.8 L Albumin 2.1 L Globulin 2.7 Albumin/Globulin Ratio 0.8 L Procalcitonin Urine Color Urine Appearance Urine pH Ur Specific [place] Urine Protein Urine Glucose (UA) Urine Ketones Urine Blood Urine Nitrate Urine Bilirubin Urine Urobilinogen Ur Leukocyte Esterase Urine RBC Urine WBC Ur Epithelial Cells Urine Bacteria 12/24/17 12/24/17 05:20 06:20 WBC RBC Hgb Hct MCV MCH MCHC RDW Plt Count MPV Gran % Lymph % (Auto) Dillon % (Auto) Eos % (Auto) Baso % (Auto) Gran # Lymph # (Auto) Dillon # (Auto) Eos # (Auto) Baso # (Auto) pCO2 61 H pO2 183.0 H HCO3 32.9 H ABG pH 7.34 L ABG Total CO2 34.8 H ABG O2 Saturation 99.4 H ABG O2 Content 16.4 ABG Base Excess 5.5 H ABG Hemoglobin 11.7 ABG Carboxyhemoglobin 1.5 POC ABG HHb (Measured) 0.6 ABG Methemoglobin 0.7 ABG O2 Capacity 16.5 Hgb O2 Saturation 97.2 FiO2 100.0 Sodium 138 Potassium 4.0 Chloride 100 Carbon Dioxide 35 H Anion Gap 7 L BUN 14 Creatinine 0.4 L Est GFR ( Amer) > 60 Est GFR (Non-Af Amer) > 60 Random Glucose 176 H Calcium 7.0 L Total Bilirubin 0.8 AST 21 ALT 17 Alkaline Phosphatase 105 Troponin I Total Protein 4.9 L Albumin 2.2 L Globulin 2.7 Albumin/Globulin Ratio 0.8 L Procalcitonin Urine Color Urine Appearance Urine pH Ur Specific [place] Urine Protein Urine Glucose (UA) Urine Ketones Urine Blood Urine Nitrate Urine Bilirubin Urine Urobilinogen Ur Leukocyte Esterase Urine RBC Urine WBC Ur Epithelial Cells Urine Bacteria Critical Care Progress Note - Nutrition Nutrition: Nutrition Category Date Time Status NPO Diet [DIET] Diets 12/16/17 Dinner Ordered Assessment/Plan - Assessment and Plan (Free Text) Assessment: Patient seen and examined on rounds with resident, agree with note with following additions/exceptions: 72 year old male with a past medical history of stage IV NSCLC, COPD, R tibial pathological fx, sacral decubitus ulcer stage IV with hypoxia, SOB, L lung collapse 2/2 mucus plugging, inutubated. Labs, imaging, chart reviewed Patient currently afebrile, BP stable, comfortable in NAD, awake, alert, following commands, placed on CPAP trial, possible extubation today CXR with persistent L pleural effusion, no evidence of collapsed L lung ABG noted Hypoxia Resp failure SOB NSCLC with mets Pulm HTN COPD Sacral Decub Recommend: - cont with vent support, low tidal ventilation, daily CPAP trials, possible extubation today - chest PT, suctioning - Duonebs q4hr - Solumedrol 40mg IV q8hr - monitor HH - Abx Merrem Vanco - Check Procal - ECHO reviewed - Monitor LFTs - FS control - GI ppx - DVT ppx - monitor in MICU FULL CODE Patient at high risk for morbidity and mortality Poor prognosis Goals of care discussion with family today with daughter Carlee, who informed that she will discuss further goals of care discussion with family and the patient Critical care time 40 minutes
--- NOTE | 2017-12-24 10:32 | PN ---
Copied To: Barrera Purdy MD Attending MD: Barrera Purdy MD DATE: 12/24/2017 SUBJECTIVE: The patient is in bed, in no acute distress, nontoxic. The patient remains intubated on a ventilator. Yesterday's events are noted. The patient's nurse states that he had an uneventful night. OBJECTIVE: VITAL SIGNS: On exam, temperature is 98, blood pressure is 120/60, respiratory rate on the vent, heart rate of 85. HEENT: Examination reveals the ET tube to be in place. NECK: Supple. LUNGS: Have decreased breath sounds. HEART: Normal S1, S2. ABDOMEN: Soft, nontender. DATA: Laboratory examination reveals a white count of 12,500, hemoglobin of 9, platelets of 152. Chemistries reveals a BUN of 14, creatinine of 0.4 and procalcitonin 0.08 and that was from yesterday. Microbiology is noted. The patient had a chest x-ray, which reveals no significant change. ASSESSMENT AND PLAN: This is a 72-year-old male with sepsis with methicillin-resistant coag-negative staph bacteremia, suspicious for Port-A-Cath now with a possible new severe sepsis; respiratory failure, intubated on a ventilator with healthcare-associated right lower lobe aspiration pneumonia, day #12 of vancomycin and day #2 of meropenem with chronic obstructive lung disease, chronic anemia, anxiety, dyslipidemia, hypertension, metastatic non-small cell lung cancer and negative procalcitonin as of yesterday, status post rapid response and intubated on a ventilator, respiratory failure. Review of medications reveals the patient to be on vancomycin and meropenem. Barrera Purdy MD
[2017-12-24] MEDS ORDERED: Digoxin 500 mcg/2ml (0.5 mg/2ml) Inj IVP ONE (12:21)
[2017-12-24 12:37] VITALS: PULSE 130
--- NOTE | 2017-12-24 13:16 | CP.PCM.PN ---
<Julian Duran - Last Filed: 12/24/17 13:13> Subjective - Date & Time of Evaluation Date of Evaluation: 12/24/17 Time of Evaluation: 08:10 - Subjective Subjective: PGY6 GI Fellow Progress Note Patient seen and examined bedside this morning. The patient is now intubated. Tube feeding is currently held but was previously at goal without issue. There is an attempt to wean off ventilator/extubate ongoing. 12 system ROS cannot be performed given clinical condition Objective - Vital Signs/Intake and Output Vital Signs (last 24 hours): Temp Pulse Resp BP Pulse Ox 98.9 F 82 12 95/40 L 92 L 12/23/17 22:00 12/24/17 10:40 12/24/17 07:09 12/24/17 10:00 12/24/17 10:40 Intake and Output: 12/24/17 12/24/17 06:59 18:59 Intake Total 1386.0 Output Total 125 Balance 1261.0 - Medications Medications: Current Medications Acetaminophen (Tylenol 160mg/5ml Oral Soln) 650 mg PEG Q4 PRN PRN Reason: Pain, Mild (1-3) Arformoterol Tartrate (Brovana) 15 mcg IH [id number] [facility] [place] Last Admin: 12/24/17 07:00 Dose: 15 mcg Collagenase (Santyl) 1 gm TOP DAILY [facility] [place] Last Admin: 12/24/17 09:20 Dose: 1 applic Al Hydrox/Mg Hydrox/Simethicone 30 ml/Diphenhydramine HCl 75 mg/Lidocaine 30 ml 0 ml PO Q2H PRN PRN Reason: MOUTH/THROAT PAIN Diltiazem HCl (Cardizem) 30 mg PO Q6 [facility] [place] Last Admin: 12/24/17 09:07 Dose: 30 mg Enoxaparin Sodium (Lovenox) 30 mg SC DAILY FRANKY PRN Reason: Protocol Last Admin: 12/24/17 09:07 Dose: 30 mg Furosemide (Lasix) 20 mg IVP DAILY [facility] [place] Last Admin: 12/24/17 09:07 Dose: 20 mg Vancomycin HCl (Vancomycin 1gm) 1 gm in 250 mls @ 167 mls/hr IVPB Q12H FRANKY PRN Reason: Protocol Last Admin: 12/23/17 22:59 Dose: 167 mls/hr Meropenem (Merrem Iv 1 Gm Premix) 50 mls @ 100 mls/hr IVPB Q8 FRANKY PRN Reason: Protocol Stop: 01/01/18 14:01 Last Admin: 12/24/17 05:06 Dose: 100 mls/hr Magnesium 2 gm/50 ml NS (Magnesium Sulfate 2 Gm/50 Ml Ns) 2 gm in 50 mls @ 50 mls/hr IVPB ONCE FRANKY Last Admin: 12/23/17 10:06 Dose: 50 mls/hr Fentanyl Citrate (Fentanyl Citrate/Sodium Chloride 1 Mg/100 Ml) 1,000 mcg in 100 mls @ 2 mls/hr IV .Q24H PRN; Protocol; 20 MCG/HR PRN Reason: TITRATE PER MD ORDER Last Admin: 12/24/17 00:00 Dose: 75 mcg/hr, 7.5 mls/hr Lactic Acid (Lac-Hydrin 12% Cream (140 G)) 1 ea TOP DAILY [facility] [place] Last Admin: 12/23/17 10:05 Dose: 1 appl Levalbuterol HCl (Xopenex) 0.63 mg IH [id number] PRN PRN Reason: Shortness of Breath Last Admin: 12/24/17 07:01 Dose: 0.63 mg Lidocaine (Lidocaine 5%) 0 gm TOP TID FRANKY Last Admin: 12/23/17 17:34 Dose: 1 applic Lorazepam (Ativan) 0.5 mg IVP Q6H PRN; Protocol PRN Reason: Anxiety Methylprednisolone (Solu-Medrol) 20 mg IVP Q12 FRANKY Last Admin: 12/24/17 09:17 Dose: 20 mg Non-Formulary Medication (Dimethicone [Proshield Plus Skin Protectant]) 1 applic TOP DAILY FRANKY Last Admin: 12/23/17 10:05 Dose: Not Given Ondansetron HCl (Zofran Tab) 4 mg PO Q6 PRN PRN Reason: Nausea/Vomiting Last Admin: 12/15/17 15:18 Dose: 4 mg Pantoprazole Sodium (Protonix Inj) 40 mg IVP DAILY FRANKY Last Admin: 12/24/17 09:08 Dose: 40 mg Saliva Substitute (Saliva Substitute) 0 ml PO WM FRANKY Last Admin: 12/24/17 09:20 Dose: 1 ml Vitamin A (Vitamin A & D Oint Ud Foilpak) 1 ea TOP TID FRANKY Last Admin: 12/24/17 09:18 Dose: 1 ea - Labs Labs: 12/24/17 05:20 12/24/17 05:20 PT 13.6 SECONDS (9.4-12.5) H 12/20/17 07:11 INR 1.18 12/20/17 07:11 APTT 30.0 Seconds (25.1-36.5) 12/19/17 06:15 - Constitutional Appears: No Acute Distress, Cachectic, Chronically Ill - Eye Exam Eye Exam: PERRL - ENT Exam ENT Exam: Mucous Membranes Dry Additional comments: ETT in place to ventilator - Respiratory Exam Respiratory Exam: Rales. absent: Clear to Ausculation Bilateral, Rhonchi, Wheezes Additional comments: B/L air entry noted - Cardiovascular Exam Cardiovascular Exam: RRR, +S1, +S2 - GI/Abdominal Exam GI & Abdominal Exam: Soft, Normal Bowel Sounds. absent: Distended, Firm, Guarding, Rigid, Tenderness, Organomegaly Additional comments: PEG in place - Extremities Exam Extremities Exam: Normal Inspection. absent: Pedal Edema - Neurological Exam Additional comments: weaning off sedation - Psychiatric Exam Psychiatric exam: Normal Affect, Normal Mood - Skin Skin Exam: Dry, Warm Assessment and Plan - Assessment and Plan (Free Text) Assessment: Patient is a 72yo male with PMHx significant for stage IV NSCLC with bony metastases, COPD, pathologic right tibial fracture, an unstageable sacral decubitus ulcer who was admitted for failure to thrive and progressively worsening dysphagia -Acute hypoxic respiratory failure s/p intubation; concern for pneumonia vs transfusion reaction/TACO/TRALI -Anemia s/p 1.5 units PRBCs -Failure to thrive s/p PEG insertion Plan: -Weaning from ETT to vent ongoing -TF held during extubation attempt -Overall, goal for TF is osmolite 60mL/hr - was tolerating at goal per critical care staff -Defer pulmonology issues to primary team and intensive unit staff -Will follow Case seen and discussed with Dr Levine <Sam Levine V - Last Filed: 12/24/17 23:20> Objective - Vital Signs/Intake and Output Vital Signs (last 24 hours): Temp Pulse Resp BP Pulse Ox 98.9 F 147 H 20 115/43 L 90 L 12/24/17 22:00 12/24/17 22:10 12/24/17 10:00 12/24/17 22:00 12/24/17 22:10 Intake and Output: 12/24/17 12/25/17 18:59 06:59 Intake Total 750 Balance 750 - Medications Medications: Current Medications Acetaminophen (Tylenol 160mg/5ml Oral Soln) 650 mg PEG Q4 PRN PRN Reason: Pain, Mild (1-3) Arformoterol Tartrate (Brovana) 15 mcg IH [id number] [facility] [place] Last Admin: 12/24/17 19:45 Dose: 15 mcg Collagenase (Santyl) 1 gm TOP DAILY [facility] [place] Last Admin: 12/24/17 09:20 Dose: 1 applic Al Hydrox/Mg Hydrox/Simethicone 30 ml/Diphenhydramine HCl 75 mg/Lidocaine 30 ml 0 ml PO Q2H PRN PRN Reason: MOUTH/THROAT PAIN Diltiazem HCl (Cardizem) 30 mg PO Q6 [facility] [place] Last Admin: 12/24/17 18:45 Dose: Not Given Enoxaparin Sodium (Lovenox) 30 mg SC DAILY [facility] [place] PRN Reason: Protocol Last Admin: 12/24/17 09:07 Dose: 30 mg Furosemide (Lasix) 20 mg IVP DAILY [facility] [place] Last Admin: 12/24/17 09:07 Dose: 20 mg Vancomycin HCl (Vancomycin 1gm) 1 gm in 250 mls @ 167 mls/hr IVPB Q12H [facility] PRN Reason: Protocol Last Admin: 12/24/17 13:57 Dose: 167 mls/hr Meropenem (Merrem Iv 1 Gm Premix) 50 mls @ 100 mls/hr IVPB Q8 [facility] PRN Reason: Protocol Stop: 01/01/18 14:01 Last Admin: 12/24/17 21:24 Dose: 100 mls/hr Magnesium 2 gm/50 ml NS (Magnesium Sulfate 2 Gm/50 Ml Ns) 2 gm in 50 mls @ 50 mls/hr IVPB ONCE [facility] [place] Last Admin: 12/24/17 18:47 Dose: 50 mls/hr Fentanyl Citrate (Fentanyl Citrate/Sodium Chloride 1 Mg/100 Ml) 1,000 mcg in 100 mls @ 2 mls/hr IV .Q24H PRN; Protocol; 20 MCG/HR PRN Reason: TITRATE PER MD ORDER Last Admin: 12/24/17 00:00 Dose: 75 mcg/hr, 7.5 mls/hr diltiaZEM IVPB 100mg in NS (Cardizem 100mg In Ns) 100 mls @ 10 mls/hr IV .Q10H PRN; Protocol; 10 MG/HR PRN Reason: TITRATE PER MD ORDER Last Admin: 12/24/17 17:26 Dose: 10 mg/hr, 10 mls/hr Propofol (Diprivan) 1,000 mg in 100 mls @ 1.565 mls/hr IV .Q24H PRN; Protocol; 5 MCG/KG/MIN PRN Reason: TITRATE PER MD ORDER Last Admin: 12/24/17 17:26 Dose: 5 mcg/kg/min, 1.565 mls/hr Lactic Acid (Lac-Hydrin 12% Cream (140 G)) 1 ea TOP DAILY [facility] [place] Last Admin: 12/24/17 18:50 Dose: Not Given Levalbuterol HCl (Xopenex) 0.63 mg IH [id number] PRN PRN Reason: Shortness of Breath Last Admin: 12/24/17 07:01 Dose: 0.63 mg Lidocaine (Lidocaine 5%) 0 gm TOP TID [facility] Last Admin: 12/24/17 18:46 Dose: Not Given Lorazepam (Ativan) 0.5 mg IVP Q6H PRN; Protocol PRN Reason: Anxiety Methylprednisolone (Solu-Medrol) 20 mg IVP Q12 [facility] [place] Last Admin: 12/24/17 21:22 Dose: 20 mg Non-Formulary Medication (Dimethicone [Proshield Plus Skin Protectant]) 1 applic TOP DAILY [facility] [place] Last Admin: 12/24/17 17:33 Dose: Not Given Ondansetron HCl (Zofran Tab) 4 mg PO Q6 PRN PRN Reason: Nausea/Vomiting Last Admin: 12/15/17 15:18 Dose: 4 mg Pantoprazole Sodium (Protonix Inj) 40 mg IVP DAILY [facility] [place] Last Admin: 12/24/17 09:08 Dose: 40 mg Saliva Substitute (Saliva Substitute) 0 ml PO WM [facility] [place] Last Admin: 12/24/17 18:48 Dose: 1 ml Vitamin A (Vitamin A & D Oint Ud Foilpak) 1 ea TOP TID [facility] Last Admin: 12/24/17 18:48 Dose: 1 ea - Labs Labs: 12/24/17 05:20 12/24/17 05:20 PT 13.6 SECONDS (9.4-12.5) H 12/20/17 07:11 INR 1.18 12/20/17 07:11 APTT 30.0 Seconds (25.1-36.5) 12/19/17 06:15 Attending/Attestation - Attestation I have personally seen and examined this patient.: Yes I have fully participated in the care of the patient.: Yes I have reviewed all pertinent clinical information, including history, physical exam and plan: Yes Notes (Text): This is an addendum to GI progress report dictated by the GI Fellow.The patient was seen and examined earlier. Medical records, lab studies, imagings were reviewed. Last 24 hours events reviewed. Agreed with the above treatment plan as outlined in GI Fellow 's notes with the addition of the following Patient Was on vent at the time of examination Scheduled to be extubated Feeding was on hold Follow-up hemoglobin/ hematocrit Can restart the feeding when optimized . 12/24/17 23:19
[2017-12-24] MEDS: Vancomycin 1gm in NS 250ml 1 GM/250 ML BAG IVPB SCH ×2 (13:56→13:57)
[2017-12-24] MEDS ORDERED: Propofol 10 mg/ml 1,000 MG/100 ML VIAL IV PRN (17:12)
[2017-12-24] MEDS ORDERED: diltiaZEM IVPB 100mg in NS 100 ML IV PRN (17:12)
[2017-12-24] MEDS: DIMETHICONE TOP SCH (17:33)
[2017-12-24] MEDS: Lidocaine 5% Oint(35 gm) TOP SCH ×2 (18:45→18:46)
[2017-12-24] MEDS: Magnesium 2 gm/50 ml NS 2 GM/50 ML BAG IVPB SCH (18:47)
[2017-12-24] MEDS: Ammonium Lactate 12% Cream (140 g) TOP SCH (18:50)
--- NOTE | 2017-12-24 19:04 | PN ---
Copied To: Judit Dent MD Attending MD: Judit Dent MD PULMONARY PROGRESS NOTE REFERRING PHYSICIAN: Adolfo Durbin MD DATE: 12/24/2017 SUBJECTIVE: He is intubated. Fully awake and alert. Family is at bedside. The butadiene converter utility operator was at bedside. Overnight events noted. Left lung is more aerated now. Still have a shunting with CO2 retention. No hemoptysis, emesis or hematuria. No diarrhea reported. OBJECTIVE: GENERAL: In no acute distress. VITAL SIGNS: Temperature is 98, heart rate is 80, respiratory rate is 20, blood pressure 130/70, pulse ox is 93% on 60% oxygen on ventilator. HEENT: Moist mucous membrane. Crowded airway. ET tube has no secretion. NECK: Supple. LUNGS: Have decreased breath on the left lung. HEART: S1 and S2. ABDOMEN: Soft, nontender. No organomegaly. EXTREMITIES: There is no edema. NEUROLOGICAL: Awake and alert. Follows simple command. MEDICATIONS: He is on Ativan 0.5 mg every 6 hours p.r.n., Brovana inhaled twice a day, Cardizem 30 mg every 8 hours, also on IV fentanyl, Lasix 20 mg daily, lidocaine patch at affected area, Lovenox 30 mg subcu daily. He is on magnesium 2 g IV will be given, meropenem 1 g IV every 8 hours, Protonix 40 mg daily, Santyl 1 g topically, Solu-Medrol 20 mg twice a day, Tylenol p.r.n., vancomycin 1 g IV every 12 hours, vitamin A and B on affected area, Xopenex 0.63 every 6 hours p.r.n., Zofran p.r.n. basis. LABORATORY DATA: Shows hemoglobin 9.9, hematocrit 31.6, WBC 12.5, platelet count is 152. ABG show pH 7.34, pCO2 61, O2 of 183 that is on 100% oxygen on ventilator. Sodium 138, potassium 4, chloride 100, bicarbonate 35, BUN 14, creatinine 0.4, glucose 176, calcium 7, AST 21, ALT 17, alkaline phosphatase is 105. Albumin is 2.2. Microbiology, repeat blood culture, there is no growth. Sputum culture, there is no growth. Chest x-ray done this morning shows no significant changes and medial consolidation in left upper lobe, bibasilar infiltrate and left-sided effusion. IMPRESSION AND PLAN: Unresectable lung cancer with metastatic disease to bone, vertebra. Pathological fracture of the right tibia, been on radiation therapy, chronic obstructive lung disease, collapsed left lung with effusion, respiratory failure on ventilator. Difficulty requiring G-tube, malnourished. I had long discussion with the patient while on ventilator. I spoke to the patient's family at bedside. Spoke to butadiene converter utility operator. Also, spoke to respiratory therapist. Risk and benefit discussed option of extubating him. Clinically, I feel he still have a CO2 retention shunting and he will recollapse the lung on the left. Agree to continue. Keep him on ventilator for now. We will reassess in the morning. Continue antibiotics. Continue IV and inhaled bronchodilator. Continue pulmonary toilet with aggressive suctioning. We will get chest x-ray, ABG, CMP, CBC in the morning. Critical care time is more than 75 minutes. Thank you and we will follow with you. Judit Dent MD : 12/24/2017 14:09:23
--- NOTE | 2017-12-24 21:55 | PN ---
Copied To: Adolfo Durbin MD Attending MD: Adolfo Durbin MD DATE: 12/24/2017 This is Alton Monson's visit in the Intensive Care Unit. For Dr. Wolf SUBJECTIVE: The patient is a 72-year-old male seen lying awake in bed, status post intubation as per orderly and Dr. Dent with the patient now improved with consideration for extubation put on hold as per Dr. Dent so the patient's atelectatic lung may reexpand. The patient's family is at the bedside. He is now in no acute distress despite having severe sacral decubitus pain along with recent pathologic fracture of his right lower extremity. He is now fed via the Dobhoff feeding tube due to severe dysphagia. 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 PHYSICAL EXAMINATION: VITAL SIGNS: Temperature 98.2, pulse 101, respirations on blood pressure 107/58, with a oxygen saturation of 93%. HEENT: The patient is intubated with eyes opening to command, denying pain at this time, with parenteral analgesics being given. NECK: No nodes. HEART: Irregularly irregular. LUNGS: Marked decreased breath sounds on the left. ABDOMEN: Soft with viable PEG tube. EXTREMITIES: No edema. SKIN: Warm and dry. Sacral decubitus, stage III, not examined this visit however, as reported by previous evaluation as the patient is now intubated of respiratory failure. NEUROLOGIC: Unable due to intubation, but the patient does open eyes to command, with the right lower extremity status post radiation treatment and fixation as per Dr. Fuller for pathologic fracture of the tibia. LABORATORY DATA: The patient's labs were done, white blood cell count of 12.5, hemoglobin of 9.9 after transfusion of 2 units of packed cells, her hemoglobin was 8.1 two days prior, hematocrit 31.6, platelet count of 152,000, with a chem metabolic panel showing a BUN of 14, creatinine of 0.4, calcium 7, procalcitonin 0.08, total protein 4.9, albumin is 2.2. The patient did have a chest x-ray done earlier today, it was read as no significant change in medial consolidation left upper lobe, bibasilar infiltrates, left sided effusion. His EKG done yesterday was read as sinus tachy, incomplete right bundle branch block, ST-T wave abnormality, consider anterior ischemia, abnormal EKG. ASSESSMENT: The assessment for this patient is that of respiratory failure status post intubation, stage IV metastatic non-small cell carcinoma of the lung, sepsis, right lower lobe pneumonia, decubitus ulcer, dysphagia with percutaneous endoscopic gastrostomy tube, chronic obstructive pulmonary disease, anxiety, hypertension, status post pathologic fracture of the right tibia. PLAN: Plan for this patient after conversation with Dr. Wolf and orderly, we will continue his present medical regimen with tube feedings to continue as per Dr. Levine, gastrointestinal technical marketing consultant, with consideration for extubation once it is deemed appropriate as per Dr. Dent, Pulmonology, with long discussion held with patient's daughter and family members at the bedside regarding his DNR and consideration for DNI should she be extubated due to the patient's poor prognosis at this time. We will ask for a re-consult with Dr. Dayne Fuller regarding his right tibial fracture with nutrition to be maintained in the interim with strict I's and O's recommended. This is a complex patient with a comprehensive, medically necessary and appropriate visit carried out in excess of 50 minutes at the bedside with patient and the family, with other consultants also involved in decision making in the patient's care with the prognosis for this patient unfortunately poor; considerations again for DNR/DNI status, with the family to consider this. Adolfo Durbin MD
[2017-12-25] MEDS: Levalbuterol 0.63 MG/3 ML Inhal Soln UD IH PRN ×2 (02:30→20:00)
[2017-12-25 02:40] LABS: ARTERIAL BLOOD GAS HEMOGLOBIN 9.4 g/dL (11.7-17.4); ARTERIAL BLOOD GAS O2 CAPACITY 12.9 mL/dl (16-24); ARTERIAL BLOOD GAS O2 CONTENT 10.8 ML/dl (15-23); ARTERIAL BLOOD GAS PCO2 50 mm/Hg (35-45); ARTERIAL BLOOD GAS TCO2 32.5 mmol.L (22-28)
[2017-12-25 04:15] LABS: ARTERIAL BLOOD GAS HCO3 30.5 mmol/L (21-28); ARTERIAL BLOOD GAS HEMOGLOBIN 9.4 g/dL (11.7-17.4); ARTERIAL BLOOD GAS O2 CAPACITY 12.9 mL/dl (16-24); ARTERIAL BLOOD GAS O2 CONTENT 11.9 ML/dl (15-23); ARTERIAL BLOOD GAS O2 SAT 92.4 % (95-98); ARTERIAL BLOOD GAS PCO2 41 mm/Hg (35-45); ARTERIAL BLOOD GAS PH 7.48 (7.35-7.45); ARTERIAL BLOOD GAS TCO2 31.8 mmol.L (22-28)
[2017-12-25] MEDS: Meropenem IV 1 gm in NS 50 ML IVPB SCH ×3 (06:00→21:28)
[2017-12-25 06:18] LABS: ARTERIAL BLOOD GAS HCO3 31.3 mmol/L (21-28); ARTERIAL BLOOD GAS HEMOGLOBIN 9.4 g/dL (11.7-17.4); ARTERIAL BLOOD GAS O2 CONTENT 12.9 ML/dl (15-23); ARTERIAL BLOOD GAS PCO2 45 mm/Hg (35-45); ARTERIAL BLOOD GAS PH 7.45 (7.35-7.45); ARTERIAL BLOOD GAS TCO2 32.7 mmol.L (22-28)
[2017-12-25 06:39] LABS: GRAN # 14.12 (1.4-6.5); GRAN % 94.9 % (50.0-68.0); HEMOGLOBIN 9.3 g/dL (14.0-18.0); LYMPH # 0.4 (1.2-3.4); LYMPH % 2.8 % (22.0-35.0); MEAN CELL VOLUME 92.4 fl (80.0-105.0); MEAN CORPUSCULAR HEMOGLOBIN 28.4 pg (25.0-35.0); MEAN CORPUSCULAR HGB CONC 30.8 g/dl (31.0-37.0); MEAN PLATELET VOLUME 10.3 fl (7.0-11.0); MONO # 0.3 (0.1-0.6); MONO % 2.3 % (1.0-6.0); RBC 3.27 10^6/uL (3.5-6.1); RED CELL DISTRIBUTION WIDTH 18.1 % (11.5-14.5); WHITE BLOOD COUNT 14.9 10^3/ul (4.5-11.0)
[2017-12-25 07:05] LABS: ALB/GLOB RATIO 0.8 (1.1-1.8); ALBUMIN 2.4 g/dL (3.0-4.8); ALT/SGPT 20 U/L (7-56); AST/SGOT 26 U/L (17-59); BLOOD UREA NITROGEN 17 mg/dL (7-21); CALCIUM 7.2 mg/dL (8.4-10.5); GFR AFRICAN-AMERICAN > 60; GFR NON-AFRICAN AMERICAN > 60
--- NOTE | 2017-12-25 07:19 | CP.PCM.PN ---
<Terrie Gordon - Last Filed: 12/25/17 11:27> Subjective - Date & Time of Evaluation Date of Evaluation: 12/25/17 Time of Evaluation: 06:35 - Subjective Subjective: Terrie Gordon DO, PGY-2: GI Progress Note for Dr. Levine Patient was seen and examined at bedside. Nurse was washing patient at the time of my examination and is on BIPAP. Patient self-extubated himself early in the AM. Patient reports he feels much better. He had a pasty bowel movement in the interim. Otherwise, he denies any abdominal pain and there has been no blood noted from PEG site or per rectum. He is tolerating the 60 ml/hr of Osmolite which is his target goal per women's lacrosse coach. We will check his residuals and adjust accordingly. Objective - Vital Signs/Intake and Output Vital Signs (last 24 hours): Temp Pulse Resp BP Pulse Ox 98.9 F 88 16 125/48 L 92 L 12/24/17 22:00 12/25/17 03:50 12/25/17 03:50 12/25/17 03:00 12/25/17 03:50 - Medications Medications: Current Medications Acetaminophen (Tylenol 160mg/5ml Oral Soln) 650 mg PEG Q4 PRN PRN Reason: Pain, Mild (1-3) Arformoterol Tartrate (Brovana) 15 mcg IH [id number] [facility] Last Admin: 12/24/17 19:45 Dose: 15 mcg Collagenase (Santyl) 1 gm TOP DAILY [facility] Last Admin: 12/24/17 09:20 Dose: 1 applic Al Hydrox/Mg Hydrox/Simethicone 30 ml/Diphenhydramine HCl 75 mg/Lidocaine 30 ml 0 ml PO Q2H PRN PRN Reason: MOUTH/THROAT PAIN Diltiazem HCl (Cardizem) 30 mg PO Q6 [facility] Last Admin: 12/24/17 18:45 Dose: Not Given Enoxaparin Sodium (Lovenox) 30 mg SC DAILY [facility] PRN Reason: Protocol Last Admin: 12/24/17 09:07 Dose: 30 mg Furosemide (Lasix) 20 mg IVP DAILY [facility] Last Admin: 12/24/17 09:07 Dose: 20 mg Vancomycin HCl (Vancomycin 1gm) 1 gm in 250 mls @ 167 mls/hr IVPB Q12H [facility] PRN Reason: Protocol Last Admin: 12/24/17 13:57 Dose: 167 mls/hr Meropenem (Merrem Iv 1 Gm Premix) 50 mls @ 100 mls/hr IVPB Q8 [facility] PRN Reason: Protocol Stop: 01/01/18 14:01 Last Admin: 12/24/17 21:24 Dose: 100 mls/hr Magnesium 2 gm/50 ml NS (Magnesium Sulfate 2 Gm/50 Ml Ns) 2 gm in 50 mls @ 50 mls/hr IVPB ONCE [facility] Last Admin: 12/24/17 18:47 Dose: 50 mls/hr Fentanyl Citrate (Fentanyl Citrate/Sodium Chloride 1 Mg/100 Ml) 1,000 mcg in 100 mls @ 2 mls/hr IV .Q24H PRN; Protocol; 20 MCG/HR PRN Reason: TITRATE PER MD ORDER Last Admin: 12/24/17 00:00 Dose: 75 mcg/hr, 7.5 mls/hr diltiaZEM IVPB 100mg in NS (Cardizem 100mg In Ns) 100 mls @ 10 mls/hr IV .Q10H PRN; Protocol; 10 MG/HR PRN Reason: TITRATE PER MD ORDER Last Admin: 12/24/17 17:26 Dose: 10 mg/hr, 10 mls/hr Propofol (Diprivan) 1,000 mg in 100 mls @ 1.565 mls/hr IV .Q24H PRN; Protocol; 5 MCG/KG/MIN PRN Reason: TITRATE PER MD ORDER Last Admin: 12/24/17 17:26 Dose: 5 mcg/kg/min, 1.565 mls/hr Lactic Acid (Lac-Hydrin 12% Cream (140 G)) 1 ea TOP DAILY [facility] Last Admin: 12/24/17 18:50 Dose: Not Given Levalbuterol HCl (Xopenex) 0.63 mg IH [id number] PRN PRN Reason: Shortness of Breath Last Admin: 12/25/17 02:30 Dose: 0.63 mg Lidocaine (Lidocaine 5%) 0 gm TOP TID [facility] Last Admin: 12/24/17 18:46 Dose: Not Given Lorazepam (Ativan) 0.5 mg IVP Q6H PRN; Protocol PRN Reason: Anxiety Methylprednisolone (Solu-Medrol) 20 mg IVP Q12 [facility] Last Admin: 12/24/17 21:22 Dose: 20 mg Non-Formulary Medication (Dimethicone [Proshield Plus Skin Protectant]) 1 applic TOP DAILY [facility] Last Admin: 12/24/17 17:33 Dose: Not Given Ondansetron HCl (Zofran Tab) 4 mg PO Q6 PRN PRN Reason: Nausea/Vomiting Last Admin: 12/15/17 15:18 Dose: 4 mg Pantoprazole Sodium (Protonix Inj) 40 mg IVP DAILY [facility] Last Admin: 12/24/17 09:08 Dose: 40 mg Saliva Substitute (Saliva Substitute) 0 ml PO WM [facility] Last Admin: 12/24/17 18:48 Dose: 1 ml Vitamin A (Vitamin A & D Oint Ud Foilpak) 1 ea TOP TID [facility] Last Admin: 12/24/17 18:48 Dose: 1 ea - Labs Labs: 12/25/17 05:30 12/25/17 05:30 PT 13.6 SECONDS (9.4-12.5) H 12/20/17 07:11 INR 1.18 12/20/17 07:11 APTT 30.0 Seconds (25.1-36.5) 12/19/17 06:15 - Constitutional Appears: Well, Non-toxic - Head Exam Head Exam: ATRAUMATIC, NORMOCEPHALIC - Eye Exam Eye Exam: EOMI, Normal appearance - Neck Exam Neck Exam: Normal Inspection - Respiratory Exam Respiratory Exam: NORMAL BREATHING PATTERN. absent: Accessory Muscle Use - Cardiovascular Exam Cardiovascular Exam: +S1, +S2. absent: Tachycardia - GI/Abdominal Exam GI & Abdominal Exam: Soft, Normal Bowel Sounds - Extremities Exam Additional comments: feet appear swollen - Neurological Exam Neurological Exam: Alert, Awake - Psychiatric Exam Psychiatric exam: Normal Affect, Normal Mood - Skin Skin Exam: Dry, Intact, Normal Color, Warm Assessment and Plan - Assessment and Plan (Free Text) Assessment: Patient is a 72yo male with PMHx significant for stage IV NSCLC with bony metastases, COPD, pathologic right tibial fracture, an unstageable sacral decubitus ulcer who was admitted for failure to thrive and progressively worsening dysphagia -Acute hypoxic respiratory failure s/p intubation; concern for pneumonia vs transfusion reaction/TACO/TRALI- resolved s/p self-extubation -Anemia s/p 1.5 units PRBCs -Failure to thrive - PEG tube running at 60 ml/hr of Osmolite Plan: - Overall, goal for TF is osmolite 60mL/hr, will check residuals and adjust accordingly as patient may not be able to tolerate this level of feeding Case seen and discussed with attending physician, Dr Levine <Sam Levine V - Last Filed: 12/25/17 18:48> Objective - Vital Signs/Intake and Output Vital Signs (last 24 hours): Temp Pulse Resp BP Pulse Ox 98.3 F 108 H 35 H 141/89 83 L 12/25/17 10:00 12/25/17 18:14 12/25/17 15:58 12/25/17 18:14 12/25/17 15:30 Intake and Output: 12/25/17 12/25/17 06:59 18:59 Intake Total 984 Balance 984 - Medications Medications: Current Medications Acetaminophen (Tylenol 160mg/5ml Oral Soln) 650 mg PEG Q4 PRN PRN Reason: Pain, Mild (1-3) Arformoterol Tartrate (Brovana) 15 mcg IH [id number] [facility] Last Admin: 12/25/17 07:30 Dose: 15 mcg Collagenase (Santyl) 1 gm TOP DAILY [facility] Last Admin: 12/25/17 09:56 Dose: 1 applic Al Hydrox/Mg Hydrox/Simethicone 30 ml/Diphenhydramine HCl 75 mg/Lidocaine 30 ml 0 ml PO Q2H PRN PRN Reason: MOUTH/THROAT PAIN Diltiazem HCl (Cardizem) 30 mg PO Q6 [facility] Last Admin: 12/25/17 18:14 Dose: 30 mg Enoxaparin Sodium (Lovenox) 30 mg SC DAILY [facility] PRN Reason: Protocol Last Admin: 12/25/17 09:32 Dose: 30 mg Furosemide (Lasix) 20 mg IVP DAILY [facility] Last Admin: 12/25/17 09:33 Dose: 20 mg Vancomycin HCl (Vancomycin 1gm) 1 gm in 250 mls @ 167 mls/hr IVPB Q12H [facility] PRN Reason: Protocol Last Admin: 12/25/17 10:31 Dose: 167 mls/hr Meropenem (Merrem Iv 1 Gm Premix) 50 mls @ 100 mls/hr IVPB Q8 [facility] PRN Reason: Protocol Stop: 01/01/18 14:01 Last Admin: 12/25/17 14:06 Dose: 100 mls/hr diltiaZEM IVPB 100mg in NS (Cardizem 100mg In Ns) 100 mls @ 10 mls/hr IV .Q10H PRN; Protocol; 10 MG/HR PRN Reason: TITRATE PER MD ORDER Last Admin: 12/24/17 17:26 Dose: 10 mg/hr, 10 mls/hr Dexmedetomidine HCl (Precedex 400mcg/100ml) 400 mcg in 100 mls @ 3.025 mls/hr IV .Q24H PRN; Protocol; 0.2 MCG/KG/HR PRN Reason: Agitation Last Admin: 12/25/17 18:35 Dose: 0.2 mcg/kg/hr, 3.025 mls/hr Lactic Acid (Lac-Hydrin 12% Cream (140 G)) 1 ea TOP DAILY [facility] Last Admin: 12/25/17 09:55 Dose: 1 appl Levalbuterol HCl (Xopenex) 0.63 mg IH [id number] PRN PRN Reason: Shortness of Breath Last Admin: 12/25/17 02:30 Dose: 0.63 mg Lidocaine (Lidocaine 5%) 0 gm TOP TID [facility] Last Admin: 12/25/17 18:15 Dose: 1 applic Lorazepam (Ativan) 0.5 mg IVP Q6H PRN; Protocol PRN Reason: Anxiety Methylprednisolone (Solu-Medrol) 20 mg IVP Q12 [facility] Last Admin: 12/25/17 09:33 Dose: 20 mg Non-Formulary Medication (Dimethicone [Proshield Plus Skin Protectant]) 1 applic TOP DAILY [facility] Last Admin: 12/25/17 10:04 Dose: Not Given Ondansetron HCl (Zofran Tab) 4 mg PO Q6 PRN PRN Reason: Nausea/Vomiting Last Admin: 12/15/17 15:18 Dose: 4 mg Pantoprazole Sodium (Protonix Inj) 40 mg IVP DAILY [facility] Last Admin: 12/25/17 09:32 Dose: 40 mg Quetiapine Fumarate (Seroquel) 50 mg PO HS [facility] PRN Reason: Protocol Saliva Substitute (Saliva Substitute) 0 ml PO WM [facility] Last Admin: 12/25/17 18:15 Dose: 1 ml Vitamin A (Vitamin A & D Oint Ud Foilpak) 1 ea TOP TID [facility] Last Admin: 12/25/17 18:14 Dose: 1 ea - Labs Labs: 12/25/17 05:30 12/25/17 05:30 PT 13.6 SECONDS (9.4-12.5) H 12/20/17 07:11 INR 1.18 12/20/17 07:11 APTT 30.0 Seconds (25.1-36.5) 12/19/17 06:15 Attending/Attestation - Attestation I have personally seen and examined this patient.: Yes I have fully participated in the care of the patient.: Yes I have reviewed all pertinent clinical information, including history, physical exam and plan: Yes Notes (Text): This is an addendum to GI followup report dictated by the Attendant Honor Bar. The patient was seen and evaluated earlier. Medical records, lab studies, imagings were reviewed. Last 24 hours events reviewed. Agreed with the above treatment plan as outlined in Attendant Honor Bar 's notes with the addition of the following patient is off ventilator Tolerating GT feeding Follow-up residual Discussed with nursing staff 12/25/17 18:46
[2017-12-25] MEDS: Arformoterol 15 mcg/2 ml Inh Sol IH SCH ×2 (07:30→20:00)
[2017-12-25] MEDS ORDERED: Potassium Chloride 40 mEq/30 ml LIQ UD PO STA (07:58)
--- NOTE | 2017-12-25 08:15 | PN ---
Copied To: Adolfo Durbin MD Attending MD: Adolfo Durbin MD DATE: 12/23/2017 This is [facility]'s hospital visit in the intensive care unit for Dr. Wolf. SUBJECTIVE: The patient is a 72-year-old male now seen in the intensive care unit after the patient had decompensated with rapid response done for oxygen desaturation earlier this morning. The patient is known to suffer from stage IV non-small cell cancer with pulmonary hypertension with severe anemia, for which he is being transfused with patient now seen in the intensive care unit, family at the bedside, reported feeling better. The rapid response was for oxygen desaturation; however, the patient had removed his BiPAP with an abdominal binder also removed with this perhaps precipitating patient is anxious at times. PHYSICAL EXAMINATION: VITAL SIGNS: Temperature 97.8, pulse 120, respirations 25, blood pressure 125/85 with pulse ox of 88% on BiPAP. HEENT: Tongue is moist. Oxygen supplementation is on. NECK: Supple. HEART: Tachy rate, regular rhythm. LUNGS: Scattered rhonchi with decreased breath sounds on the left side. ABDOMEN: Soft. PEG tube in situ. EXTREMITIES: No edema with the right lower extremity, status post procedure as per Dr. Dayne Fuller for fracture. Sacral decubitus ulcer noted. The patient did have an intramedullary catrachito destruction for the mid and distal tibia on the right, it was done on 12/12/2017. NEUROLOGIC: Patient is confused. SKIN: Otherwise warm and dry. LABORATORY DATA: Patient's labs were done. White blood cell count of 13.3; hemoglobin of 11.2, up from 8.1 yesterday after transfusion approximately 1-1/2 unit of packed red blood cells; hematocrit 34.1; platelet count 197,000. His chem metabolic panel showed a BUN of 10, creatinine was 0.3. Calcium of 7.2. T-bili of 1.5. Procalcitonin is 0.08. The patient did have a chest x-ray done earlier today, it was read as no change in bilateral infiltrates, decreased size left effusion. Patient had an EKG done earlier today, it was read as sinus tachycardia, incomplete right bundle branch block, ST-T wave abnormalities, consider anterior ischemia, abnormal EKG. ASSESSMENT: Hypoxemia, sepsis, methicillin-resistant Staphylococcus bacteremia, aspiration pneumonia, chronic obstructive pulmonary disease, metastatic non-small cell cancer of the lungs, anemia of chronic disease, status post transfusion, dysphagia, percutaneous endoscopic gastrostomy feeding, failure to thrive, right tibial pathologic fracture, sacral decubitus, electrolyte imbalance, and dementia. PLAN: After conversation with Dr. Wolf is to follow up with ICU protocols. We will defer on transferring the patient, which was planned as per Emergency Medical Technician Basic for tomorrow as the patient has decompensated. We will continue his present medical regimen. We will ask for reconsult with Dr. Dayne Fuller regarding his right lower extremity which the patient is indicating that the pain is more significant now, possibly after repositioning to the intensive care unit. We will discontinue numerous ancillary vitamins, medications that are being given through the PEG tube with recommendations for nurse practitioners to contact attending doctor regarding medications that will be given in the future for this patient. Continue his PEG feedings. Megace will be discontinued as well as being given via his PEG tube, which is an appetite stimulant. We will continue the recommendations as per Dr. Dent regarding his pulmonary status with the prognosis for this patient is unfortunately poor. Family is aware of his decompensated state. We will continue antibiotics as per Dr. Purdy with the consideration for remote telemetry once the patient is improved. Adolfo Durbin MD
[2017-12-25] MEDS: Saliva Substitute 44.3 ML PO SCH ×4 (08:32→18:15)
--- NOTE | 2017-12-25 08:33 | RAD ---
Date of service: 12/25/2017 HISTORY: [email or web address] COMPARISON: 12/24/2017. FINDINGS: The right IJV line terminates at the cavoatrial junction. The right MediPort terminates in the right atrium. LUNGS: The lungs are well inflated. There is mild pulmonary venous congestion There is subsegmental atelectasis in the right lower lobe. There is redemonstration of consolidation in the medial left suprahilar region. There is persistent airspace disease in the left lower lobe. PLEURA: Small left pleural effusion, no pneumothorax apparent. CARDIOVASCULAR: Normal. OSSEOUS STRUCTURES: No significant abnormalities. VISUALIZED UPPER ABDOMEN: Normal. OTHER FINDINGS: None. IMPRESSION: Little interval change in left medial upper lobe suprahilar consolidation. No change in small left pleural effusion and left lower lobe airspace disease.
[2017-12-25] MEDS: Enoxaparin 30 mg Syringe SC SCH (09:32)
[2017-12-25] MEDS: MethylPREDNISolone 40 mg Vial IVP SCH ×2 (09:33→21:31)
[2017-12-25] MEDS: Ammonium Lactate 12% Cream (140 g) TOP SCH ×2 (09:51→09:55)
[2017-12-25] MEDS: Collagenase 250 Units/gm Ointment(30 gm) TOP SCH ×2 (09:53→09:56)
[2017-12-25] MEDS: Lidocaine 5% Oint(35 gm) TOP SCH ×3 (09:58→18:15)
[2017-12-25] MEDS: DIMETHICONE TOP SCH (10:04)
[2017-12-25] MEDS: Vitamins A & D Oint UD Foilpak TOP SCH ×3 (10:21→18:14)
[2017-12-25] MEDS: Vancomycin 1gm in NS 250ml 1 GM/250 ML BAG IVPB SCH (10:31)
--- NOTE | 2017-12-25 12:45 | CP.CCUPN ---
<Kyle Alvarez - Last Filed: 12/25/17 13:08> CCU Subjective - Physician Review Events Since Last Encounter (Free Text): 12/25/17 12:45 Patient seen and examined at bedside. Patient extubated himself overnight, but is comfortable on bipap. Patient's HR went into the 140s yesterday with A-Fib, so was started on Cardizem drip, which has now been changed to q6 po. Patient otherwise denies any complaints including chest pain, worsening shortness of breath. CCU Objective - Vital Signs / Intake & Output Vital Signs (Last 4 hours): Vital Signs Pulse BP 12/25/17 11:32 82 139/53 L 12/25/17 09:33 149/80 Intake and Output (Last 8hrs): Intake & Output 12/24/17 12/25/17 12/25/17 22:59 06:59 14:59 Intake Total 750 984 Balance 750 984 Weight 60.498 kg Intake: IV 510 144 Right Subclavian 54 Subclavian 510 nsaline 90 Tube Feeding 240 740 Other 100 Other: # Voids Urine, Voided 650 # Bowel Movements 0 1 - Physical Exam Head: Positive for: Atraumatic, Normocephalic Pupils: Positive for: PERRL Extroacular Muscles: Positive for: EOMI Conjunctiva: Positive for: Normal Mouth: Positive for: Dry Neck: Positive for: Normal Range of Motion. Negative for: MIDLINE TENDERNESS, Paraspinal Tenderness Respiratory/Chest: Positive for: Clear to Auscultation, Decreased Breath Sounds (decreased breath sounds left side). Negative for: Respiratory Distress, Accessory Muscle Use Cardiovascular: Positive for: Regular Rate and Rhythm, Normal S1, S2. Negative for: Murmurs Abdomen: Negative for: Tenderness, Distention, Peritoneal Signs Back: Positive for: Normal Inspection Upper Extremity: Positive for: Normal Inspection. Negative for: Cyanosis, Edema Lower Extremity: Positive for: Other (surgical scar rt knee, clean, dr, and intact). Negative for: Edema, Normal ROM (mild pain with movement) Neurological: Positive for: GCS=15, CN II-XII Intact, Speech Normal Skin: Positive for: Warm, Dry, Normal Color. Negative for: Rashes Psychiatric: Positive for: Alert, Oriented x 3, Normal Insight, Normal Concentration - Medications Active Medications: Active Medications Generic Name Dose Route Start Last Admin Trade Name Freq PRN Reason Stop Dose Admin Acetaminophen 650 mg 12/22/17 12:02 Tylenol 160mg/5ml Oral Soln PEG Q4 PRN Pain, Mild (1-3) Arformoterol Tartrate 15 mcg 12/12/17 08:00 12/25/17 07:30 Brovana IH 15 mcg [id number] FRANKY Administration Collagenase 1 gm 12/12/17 12:15 12/25/17 09:56 Santyl TOP 1 applic DAILY FRANKY Administration Al Hydrox/Mg Hydrox/ 0 ml 12/12/17 15:59 Simethicone 30 ml/ PO Diphenhydramine HCl 75 mg/ Q2H PRN Lidocaine 30 ml MOUTH/THROAT PAIN Diltiazem HCl 30 mg 12/24/17 08:45 12/25/17 11:32 Cardizem PO 30 mg Q6 FRANKY Administration Enoxaparin Sodium 30 mg 12/13/17 10:00 12/25/17 09:32 Lovenox SC 30 mg DAILY FRANKY Administration Protocol Furosemide 20 mg 12/24/17 10:00 12/25/17 09:33 Lasix IVP 20 mg DAILY FRANKY Administration Vancomycin HCl 1 gm in 250 mls @ 167 mls/hr 12/22/17 23:30 12/25/17 10:31 Vancomycin 1gm IVPB 167 mls/hr Q12H FARNKY Administration Protocol Meropenem 50 mls @ 100 mls/hr 12/23/17 14:00 12/25/17 06:00 Merrem Iv 1 Gm Premix IVPB 01/01/18 14:01 100 mls/hr Q8 FRANKY Administration Protocol diltiaZEM IVPB 100mg in NS 100 mls @ 10 mls/hr 12/24/17 17:12 12/24/17 17:26 Cardizem 100mg In Ns IV 10 mg/hr .Q10H PRN 10 mls/hr TITRATE PER MD ORDER Administration Protocol 10 MG/HR Lactic Acid 1 ea 12/15/17 10:00 12/25/17 09:55 Lac-Hydrin 12% Cream (140 G) TOP 1 appl DAILY FRANKY Administration Levalbuterol HCl 0.63 mg 12/16/17 14:05 12/25/17 02:30 Xopenex IH 0.63 mg [id number] PRN Administration Shortness of Breath Lidocaine 0 gm 12/13/17 14:00 12/25/17 09:58 Lidocaine 5% TOP 1 applic TID FRANKY Administration Lorazepam 0.5 mg 12/23/17 12:01 Ativan IVP Q6H PRN Anxiety Protocol Methylprednisolone 20 mg 12/23/17 10:45 12/25/17 09:33 Solu-Medrol IVP 20 mg Q12 FRANKY Administration Non-Formulary Medication 1 applic 12/13/17 10:00 12/25/17 10:04 Dimethicone [Proshield Plus Skin Protectant] TOP Not Given DAILY FRANKY Ondansetron HCl 4 mg 12/12/17 15:48 12/15/17 15:18 Zofran Tab PO 4 mg Q6 PRN Administration Nausea/Vomiting Pantoprazole Sodium 40 mg 12/24/17 10:00 12/25/17 09:32 Protonix Inj IVP 40 mg DAILY FRANKY Administration Saliva Substitute 0 ml 12/13/17 17:00 12/25/17 11:34 Saliva Substitute PO 1 ml WM FRANKY Administration Vitamin A 1 ea 12/12/17 18:00 12/25/17 10:21 Vitamin A & D Oint Ud Foilpak TOP 1 ea TID FRANKY Administration - Patient Studies Lab Studies: Microbiology Studies 12/23/17 10:45 MRSA Culture (Admit) - Final Naris MRSA NOT DETECTED 12/23/17 18:00 Blood Culture - Preliminary Blood NO GROWTH AFTER 24 HOURS 12/23/17 18:30 Blood Culture - Preliminary Blood NO GROWTH AFTER 24 HOURS 12/23/17 17:35 Gram Stain - Preliminary Sputum Lab Studies 12/25/17 12/25/17 12/25/17 Range/Units 06:10 05:30 05:30 WBC 14.9 H (4.5-11.0) 10^3/ul RBC 3.27 L (3.5-6.1) 10^6/uL Hgb 9.3 L (14.0-18.0) g/dL Hct 30.2 L (42.0-52.0) % MCV 92.4 (80.0-105.0) fl MCH 28.4 (25.0-35.0) pg MCHC 30.8 L (31.0-37.0) g/dl RDW 18.1 H (11.5-14.5) % Plt Count 172 (120.0-450.0) 10^3/uL MPV 10.3 (7.0-11.0) fl Gran % 94.9 H (50.0-68.0) % Lymph % (Auto) 2.8 L (22.0-35.0) % [place] % (Auto) 2.3 (1.0-6.0) % Eos % (Auto) 0.0 L (1.5-5.0) % Baso % (Auto) 0.0 (0.0-3.0) % Gran # 14.12 H (1.4-6.5) Lymph # (Auto) 0.4 L (1.2-3.4) [place] # (Auto) 0.3 (0.1-0.6) Eos # (Auto) 0.0 (0.0-0.7) Baso # (Auto) 0.00 (0.0-2.0) K/mm3 pCO2 45 (35-45) mm/Hg pO2 121.0 H (80-100) mm/Hg HCO3 31.3 H (21-28) mmol/L ABG pH 7.45 (7.35-7.45) ABG Total CO2 32.7 H (22-28) mmol.L ABG O2 Saturation 99.0 H (95-98) % ABG O2 Content 12.9 L (15-23) ML/dl ABG Base Excess 6.6 H (-2.0-3.0) mmol/L ABG Hemoglobin 9.4 L (11.7-17.4) g/dL ABG Carboxyhemoglobin 1.6 H (0.5-1.5) % POC ABG HHb (Measured) 1.0 (0-5) % ABG Methemoglobin 1.3 (0.0-3.0) % ABG O2 Capacity 13.0 L (16-24) mL/dl Hgb O2 Saturation 96.1 (95.0-98.0) % FiO2 100.0 % Sodium 138 (132-148) mmol/L Potassium 3.4 L (3.6-5.0) mmol/L Chloride 98 (98-107) mmol/L Carbon Dioxide 35 H (21-33) mmol/L Anion Gap 8 L (10-20) BUN 17 (7-21) mg/dL Creatinine 0.3 L (0.8-1.5) mg/dl Est GFR ( Amer) > 60 Est GFR (Non-Af Amer) > 60 Random Glucose 146 H (70-110) mg/dL Calcium 7.2 L (8.4-10.5) mg/dL Magnesium (1.7-2.2) mg/dL Total Bilirubin 1.1 (0.2-1.3) mg/dL AST 26 (17-59) U/L ALT 20 (7-56) U/L Alkaline Phosphatase 112 (38-126) U/L Total Protein 5.1 L (5.8-8.3) g/dL Albumin 2.4 L (3.0-4.8) g/dL Globulin 2.8 gm/dL Albumin/Globulin Ratio 0.8 L (1.1-1.8) 12/25/17 12/25/17 12/24/17 Range/Units 04:00 02:30 15:51 WBC (4.5-11.0) 10^3/ul RBC (3.5-6.1) 10^6/uL Hgb (14.0-18.0) g/dL Hct (42.0-52.0) % MCV (80.0-105.0) fl MCH (25.0-35.0) pg MCHC (31.0-37.0) g/dl RDW (11.5-14.5) % Plt Count (120.0-450.0) 10^3/uL MPV (7.0-11.0) fl Gran % (50.0-68.0) % Lymph % (Auto) (22.0-35.0) % [place] % (Auto) (1.0-6.0) % Eos % (Auto) (1.5-5.0) % Baso % (Auto) (0.0-3.0) % Gran # (1.4-6.5) Lymph # (Auto) (1.2-3.4) [place] # (Auto) (0.1-0.6) Eos # (Auto) (0.0-0.7) Baso # (Auto) (0.0-2.0) K/mm3 pCO2 41 50 H (35-45) mm/Hg pO2 51.0 L 44.0 L* (80-100) mm/Hg HCO3 30.5 H 31.0 H (21-28) mmol/L ABG pH 7.48 H 7.40 (7.35-7.45) ABG Total CO2 31.8 H 32.5 H (22-28) mmol.L ABG O2 Saturation 92.4 L 84.0 L (95-98) % ABG O2 Content 11.9 L 10.8 L (15-23) ML/dl ABG Base Excess 6.4 H 5.4 H (-2.0-3.0) mmol/L ABG Hemoglobin 9.4 L 9.4 L (11.7-17.4) g/dL ABG Carboxyhemoglobin 2.1 H 1.9 H (0.5-1.5) % POC ABG HHb (Measured) 7.4 H 15.5 H (0-5) % ABG Methemoglobin 0.9 1.4 (0.0-3.0) % ABG O2 Capacity 12.9 L 12.9 L (16-24) mL/dl Hgb O2 Saturation 89.6 L 81.3 L (95.0-98.0) % FiO2 60.0 100.0 % Sodium (132-148) mmol/L Potassium (3.6-5.0) mmol/L Chloride (98-107) mmol/L Carbon Dioxide (21-33) mmol/L Anion Gap (10-20) BUN (7-21) mg/dL Creatinine (0.8-1.5) mg/dl Est GFR ( Amer) Est GFR (Non-Af Amer) Random Glucose (70-110) mg/dL Calcium (8.4-10.5) mg/dL Magnesium 1.7 (1.7-2.2) mg/dL Total Bilirubin (0.2-1.3) mg/dL AST (17-59) U/L ALT (7-56) U/L Alkaline Phosphatase (38-126) U/L Total Protein (5.8-8.3) g/dL Albumin (3.0-4.8) g/dL Globulin gm/dL Albumin/Globulin Ratio (1.1-1.8) Laboratory Results - last 24 hr 12/24/17 12/25/17 12/25/17 15:51 02:30 04:00 WBC RBC Hgb Hct MCV MCH MCHC RDW Plt Count MPV Gran % Lymph % (Auto) [place] % (Auto) Eos % (Auto) Baso % (Auto) Gran # Lymph # (Auto) [place] # (Auto) Eos # (Auto) Baso # (Auto) pCO2 50 H 41 pO2 44.0 L* 51.0 L HCO3 31.0 H 30.5 H ABG pH 7.40 7.48 H ABG Total CO2 32.5 H 31.8 H ABG O2 Saturation 84.0 L 92.4 L ABG O2 Content 10.8 L 11.9 L ABG Base Excess 5.4 H 6.4 H ABG Hemoglobin 9.4 L 9.4 L ABG Carboxyhemoglobin 1.9 H 2.1 H POC ABG HHb (Measured) 15.5 H 7.4 H ABG Methemoglobin 1.4 0.9 ABG O2 Capacity 12.9 L 12.9 L Hgb O2 Saturation 81.3 L 89.6 L FiO2 100.0 60.0 Sodium Potassium Chloride Carbon Dioxide Anion Gap BUN Creatinine Est GFR ( Amer) Est GFR (Non-Af Amer) Random Glucose Calcium Magnesium 1.7 Total Bilirubin AST ALT Alkaline Phosphatase Total Protein Albumin Globulin Albumin/Globulin Ratio 12/25/17 12/25/17 12/25/17 05:30 05:30 06:10 WBC 14.9 H RBC 3.27 L Hgb 9.3 L Hct 30.2 L MCV 92.4 MCH 28.4 MCHC 30.8 L RDW 18.1 H Plt Count 172 MPV 10.3 Gran % 94.9 H Lymph % (Auto) 2.8 L [place] % (Auto) 2.3 Eos % (Auto) 0.0 L Baso % (Auto) 0.0 Gran # 14.12 H Lymph # (Auto) 0.4 L [place] # (Auto) 0.3 Eos # (Auto) 0.0 Baso # (Auto) 0.00 pCO2 45 pO2 121.0 H HCO3 31.3 H ABG pH 7.45 ABG Total CO2 32.7 H ABG O2 Saturation 99.0 H ABG O2 Content 12.9 L ABG Base Excess 6.6 H ABG Hemoglobin 9.4 L ABG Carboxyhemoglobin 1.6 H POC ABG HHb (Measured) 1.0 ABG Methemoglobin 1.3 ABG O2 Capacity 13.0 L Hgb O2 Saturation 96.1 FiO2 100.0 Sodium 138 Potassium 3.4 L Chloride 98 Carbon Dioxide 35 H Anion Gap 8 L BUN 17 Creatinine 0.3 L Est GFR ( Amer) > 60 Est GFR (Non-Af Amer) > 60 Random Glucose 146 H Calcium 7.2 L Magnesium Total Bilirubin 1.1 AST 26 ALT 20 Alkaline Phosphatase 112 Total Protein 5.1 L Albumin 2.4 L Globulin 2.8 Albumin/Globulin Ratio 0.8 L Critical Care Progress Note - Nutrition Nutrition: Nutrition Category Date Time Status NPO Diet [DIET] Diets 12/16/17 Dinner Ordered Assessment/Plan - Assessment and Plan (Free Text) Assessment: 72 year old male with pertinent medical history of NSCLC under ICU management for hypoxic respiratory failure. Metastatic Cancer to Bone Acute Leukocytosis Pulm HTN COPD Sacral Decub Plan Neuro: - Maintain normothermia - Neuro on consult Lungs: - Maintain SaO2 > 90% on HF O2, settings per orders - as per Pulm - Continue BiPAP HS (settings: 12/6/60%); wean PRN - as per Pulm - Continue Solumedrol 20mg IV q12 - Continue with Xopenex - Pulmonology: Dr. Dent - Radiation oncology: Dr. Vega Cardio: - Cardizem 30mg PO Q6 started - Maintain MAP >65 - ECHO reviewed - Lasix 20mg IV ID: - Leukocytosis trending back up - Day 13 out of 14 day course vancomycin for MRSA bacteremia; source port-a- cath - Day 3 merrem for new healthcare associated pneumonia, likely aspiration - Urine, blood, sputum cultures - negative for growth for now - ID on consult: Dr. Purdy Renal: - BUN/Cr WNL, will monitor - Avoid nephrotoxic agents and hypochloremia - Maintain euvolemia Heme: - Hgb stable, no need for transfusion - Continue with Lovenox for DVT PPX Endo: - Maintain euglycemia GI: - Continue with Protonix for GI ppx - PEG tube - Monitor LFTs - GI on consult: Abner - Surgery on consult: Dr. Mosczyznski Dispo: Need to speak to patient's family regarding advanced directives VS DNR/ DNI <Spencer Muñoz B - Last Filed: 12/25/17 14:49> CCU Objective - Vital Signs / Intake & Output Vital Signs (Last 4 hours): Vital Signs Pulse Resp BP Pulse Ox 12/25/17 13:20 88 16 89 L 12/25/17 13:10 85 17 89 L 12/25/17 13:00 83 18 132/62 88 L 12/25/17 12:50 85 18 90 L 12/25/17 12:40 85 19 91 L 12/25/17 12:30 89 15 90 L 12/25/17 12:29 80 12/25/17 12:20 80 17 64 L 12/25/17 12:13 83 18 12/25/17 12:10 79 19 74 L 12/25/17 12:08 81 16 12/25/17 12:07 80 17 12/25/17 12:03 82 16 12/25/17 12:01 77 18 12/25/17 12:00 129/52 L 12/25/17 11:59 83 15 12/25/17 11:58 86 18 12/25/17 11:57 80 15 12/25/17 11:56 82 21 12/25/17 11:55 82 16 12/25/17 11:54 81 17 12/25/17 11:53 81 17 12/25/17 11:52 83 18 12/25/17 11:51 84 15 12/25/17 11:50 83 19 12/25/17 11:49 82 15 12/25/17 11:48 84 15 12/25/17 11:47 85 14 12/25/17 11:46 86 16 12/25/17 11:45 87 19 12/25/17 11:44 84 24 12/25/17 11:43 84 18 12/25/17 11:42 86 23 12/25/17 11:41 90 20 12/25/17 11:40 82 19 12/25/17 11:39 85 18 12/25/17 11:38 81 15 12/25/17 11:37 82 17 12/25/17 11:36 81 15 12/25/17 11:35 81 16 12/25/17 11:34 81 16 12/25/17 11:33 77 15 12/25/17 11:32 81 15 139/53 L 12/25/17 11:31 81 17 12/25/17 11:30 81 15 12/25/17 11:29 81 17 12/25/17 11:28 83 16 12/25/17 11:27 84 16 12/25/17 11:26 84 19 12/25/17 11:25 81 16 Intake and Output (Last 8hrs): Intake & Output 12/24/17 12/25/17 12/25/17 22:59 06:59 14:59 Intake Total 750 984 Balance 750 984 Weight 133 lb 6 oz Intake: IV 510 144 Right Subclavian 54 Subclavian 510 nsaline 90 Tube Feeding 240 740 Other 100 Other: # Voids Urine, Voided 650 # Bowel Movements 0 1 - Medications Active Medications: Active Medications Generic Name Dose Route Start Last Admin Trade Name Freq PRN Reason Stop Dose Admin Acetaminophen 650 mg 12/22/17 12:02 Tylenol 160mg/5ml Oral Soln PEG Q4 PRN Pain, Mild (1-3) Arformoterol Tartrate 15 mcg 12/12/17 08:00 12/25/17 07:30 Brovana IH 15 mcg [id number] FRANKY Administration Collagenase 1 gm 12/12/17 12:15 12/25/17 09:56 Santyl TOP 1 applic DAILY FRANKY Administration Al Hydrox/Mg Hydrox/ 0 ml 12/12/17 15:59 Simethicone 30 ml/ PO Diphenhydramine HCl 75 mg/ Q2H PRN Lidocaine 30 ml MOUTH/THROAT PAIN Diltiazem HCl 30 mg 12/24/17 08:45 12/25/17 11:32 Cardizem PO 30 mg Q6 FRANKY Administration Enoxaparin Sodium 30 mg 12/13/17 10:00 12/25/17 09:32 Lovenox SC 30 mg DAILY FRANKY Administration Protocol Furosemide 20 mg 12/24/17 10:00 12/25/17 09:33 Lasix IVP 20 mg DAILY FRANKY Administration Vancomycin HCl 1 gm in 250 mls @ 167 mls/hr 12/22/17 23:30 12/25/17 10:31 Vancomycin 1gm IVPB 167 mls/hr Q12H FRANKY Administration Protocol Meropenem 50 mls @ 100 mls/hr 12/23/17 14:00 08/06/18 14:06 Merrem Iv 1 Gm Premix IVPB 01/01/18 14:01 100 mls/hr Q8 FRANKY Administration Protocol diltiaZEM IVPB 100mg in NS 100 mls @ 10 mls/hr 12/24/17 17:12 12/24/17 17:26 Cardizem 100mg In Ns IV 10 mg/hr .Q10H PRN 10 mls/hr TITRATE PER MD ORDER Administration Protocol 10 MG/HR Lactic Acid 1 ea 12/15/17 10:00 12/25/17 09:55 Lac-Hydrin 12% Cream (140 G) TOP 1 appl DAILY FRANKY Administration Levalbuterol HCl 0.63 mg 12/16/17 14:05 12/25/17 02:30 Xopenex IH 0.63 mg [id number] PRN Administration Shortness of Breath Lidocaine 0 gm 12/13/17 14:00 12/25/17 14:06 Lidocaine 5% TOP 1 applic TID FRANKY Administration Lorazepam 0.5 mg 12/23/17 12:01 Ativan IVP Q6H PRN Anxiety Protocol Methylprednisolone 20 mg 12/23/17 10:45 12/25/17 09:33 Solu-Medrol IVP 20 mg Q12 FRANKY Administration Non-Formulary Medication 1 applic 12/13/17 10:00 12/25/17 10:04 Dimethicone [Proshield Plus Skin Protectant] TOP Not Given DAILY FRANKY Ondansetron HCl 4 mg 12/12/17 15:48 12/15/17 15:18 Zofran Tab PO 4 mg Q6 PRN Administration Nausea/Vomiting Pantoprazole Sodium 40 mg 12/24/17 10:00 12/25/17 09:32 Protonix Inj IVP 40 mg DAILY FRANKY Administration Saliva Substitute 0 ml 12/13/17 17:00 12/25/17 11:34 Saliva Substitute PO 1 ml WM FRANKY Administration Vitamin A 1 ea 12/12/17 18:00 12/25/17 14:06 Vitamin A & D Oint Ud Foilpak TOP 1 ea TID FRANKY Administration - Patient Studies Lab Studies: Microbiology Studies 12/23/17 10:45 MRSA Culture (Admit) - Final Naris MRSA NOT DETECTED 12/23/17 18:00 Blood Culture - Preliminary Blood NO GROWTH AFTER 24 HOURS 12/23/17 18:30 Blood Culture - Preliminary Blood NO GROWTH AFTER 24 HOURS 12/23/17 17:35 Gram Stain - Preliminary Sputum Lab Studies 12/25/17 12/25/17 12/25/17 Range/Units 06:10 05:30 05:30 WBC 14.9 H (4.5-11.0) 10^3/ul RBC 3.27 L (3.5-6.1) 10^6/uL Hgb 9.3 L (14.0-18.0) g/dL Hct 30.2 L (42.0-52.0) % MCV 92.4 (80.0-105.0) fl MCH 28.4 (25.0-35.0) pg MCHC 30.8 L (31.0-37.0) g/dl RDW 18.1 H (11.5-14.5) % Plt Count 172 (120.0-450.0) 10^3/uL MPV 10.3 (7.0-11.0) fl Gran % 94.9 H (50.0-68.0) % Lymph % (Auto) 2.8 L (22.0-35.0) % [place] % (Auto) 2.3 (1.0-6.0) % Eos % (Auto) 0.0 L (1.5-5.0) % Baso % (Auto) 0.0 (0.0-3.0) % Gran # 14.12 H (1.4-6.5) Lymph # (Auto) 0.4 L (1.2-3.4) [place] # (Auto) 0.3 (0.1-0.6) Eos # (Auto) 0.0 (0.0-0.7) Baso # (Auto) 0.00 (0.0-2.0) K/mm3 pCO2 45 (35-45) mm/Hg pO2 121.0 H (80-100) mm/Hg HCO3 31.3 H (21-28) mmol/L ABG pH 7.45 (7.35-7.45) ABG Total CO2 32.7 H (22-28) mmol.L ABG O2 Saturation 99.0 H (95-98) % ABG O2 Content 12.9 L (15-23) ML/dl ABG Base Excess 6.6 H (-2.0-3.0) mmol/L ABG Hemoglobin 9.4 L (11.7-17.4) g/dL ABG Carboxyhemoglobin 1.6 H (0.5-1.5) % POC ABG HHb (Measured) 1.0 (0-5) % ABG Methemoglobin 1.3 (0.0-3.0) % ABG O2 Capacity 13.0 L (16-24) mL/dl Hgb O2 Saturation 96.1 (95.0-98.0) % FiO2 100.0 % Sodium 138 (132-148) mmol/L Potassium 3.4 L (3.6-5.0) mmol/L Chloride 98 (98-107) mmol/L Carbon Dioxide 35 H (21-33) mmol/L Anion Gap 8 L (10-20) BUN 17 (7-21) mg/dL Creatinine 0.3 L (0.8-1.5) mg/dl Est GFR ( Amer) > 60 Est GFR (Non-Af Amer) > 60 Random Glucose 146 H (70-110) mg/dL Calcium 7.2 L (8.4-10.5) mg/dL Magnesium (1.7-2.2) mg/dL Total Bilirubin 1.1 (0.2-1.3) mg/dL AST 26 (17-59) U/L ALT 20 (7-56) U/L Alkaline Phosphatase 112 (38-126) U/L Total Protein 5.1 L (5.8-8.3) g/dL Albumin 2.4 L (3.0-4.8) g/dL Globulin 2.8 gm/dL Albumin/Globulin Ratio 0.8 L (1.1-1.8) 12/25/17 12/25/17 12/24/17 Range/Units 04:00 02:30 15:51 WBC (4.5-11.0) 10^3/ul RBC (3.5-6.1) 10^6/uL Hgb (14.0-18.0) g/dL Hct (42.0-52.0) % MCV (80.0-105.0) fl MCH (25.0-35.0) pg MCHC (31.0-37.0) g/dl RDW (11.5-14.5) % Plt Count (120.0-450.0) 10^3/uL MPV (7.0-11.0) fl Gran % (50.0-68.0) % Lymph % (Auto) (22.0-35.0) % [place] % (Auto) (1.0-6.0) % Eos % (Auto) (1.5-5.0) % Baso % (Auto) (0.0-3.0) % Gran # (1.4-6.5) Lymph # (Auto) (1.2-3.4) [place] # (Auto) (0.1-0.6) Eos # (Auto) (0.0-0.7) Baso # (Auto) (0.0-2.0) K/mm3 pCO2 41 50 H (35-45) mm/Hg pO2 51.0 L 44.0 L* (80-100) mm/Hg HCO3 30.5 H 31.0 H (21-28) mmol/L ABG pH 7.48 H 7.40 (7.35-7.45) ABG Total CO2 31.8 H 32.5 H (22-28) mmol.L ABG O2 Saturation 92.4 L 84.0 L (95-98) % ABG O2 Content 11.9 L 10.8 L (15-23) ML/dl ABG Base Excess 6.4 H 5.4 H (-2.0-3.0) mmol/L ABG Hemoglobin 9.4 L 9.4 L (11.7-17.4) g/dL ABG Carboxyhemoglobin 2.1 H 1.9 H (0.5-1.5) % POC ABG HHb (Measured) 7.4 H 15.5 H (0-5) % ABG Methemoglobin 0.9 1.4 (0.0-3.0) % ABG O2 Capacity 12.9 L 12.9 L (16-24) mL/dl Hgb O2 Saturation 89.6 L 81.3 L (95.0-98.0) % FiO2 60.0 100.0 % Sodium (132-148) mmol/L Potassium (3.6-5.0) mmol/L Chloride (98-107) mmol/L Carbon Dioxide (21-33) mmol/L Anion Gap (10-20) BUN (7-21) mg/dL Creatinine (0.8-1.5) mg/dl Est GFR ( Amer) Est GFR (Non-Af Amer) Random Glucose (70-110) mg/dL Calcium (8.4-10.5) mg/dL Magnesium 1.7 (1.7-2.2) mg/dL Total Bilirubin (0.2-1.3) mg/dL AST (17-59) U/L ALT (7-56) U/L Alkaline Phosphatase (38-126) U/L Total Protein (5.8-8.3) g/dL Albumin (3.0-4.8) g/dL Globulin gm/dL Albumin/Globulin Ratio (1.1-1.8) Laboratory Results - last 24 hr 12/24/17 12/25/17 12/25/17 15:51 02:30 04:00 WBC RBC Hgb Hct MCV MCH MCHC RDW Plt Count MPV Gran % Lymph % (Auto) [place] % (Auto) Eos % (Auto) Baso % (Auto) Gran # Lymph # (Auto) [place] # (Auto) Eos # (Auto) Baso # (Auto) pCO2 50 H 41 pO2 44.0 L* 51.0 L HCO3 31.0 H 30.5 H ABG pH 7.40 7.48 H ABG Total CO2 32.5 H 31.8 H ABG O2 Saturation 84.0 L 92.4 L ABG O2 Content 10.8 L 11.9 L ABG Base Excess 5.4 H 6.4 H ABG Hemoglobin 9.4 L 9.4 L ABG Carboxyhemoglobin 1.9 H 2.1 H POC ABG HHb (Measured) 15.5 H 7.4 H ABG Methemoglobin 1.4 0.9 ABG O2 Capacity 12.9 L 12.9 L Hgb O2 Saturation 81.3 L 89.6 L FiO2 100.0 60.0 Sodium Potassium Chloride Carbon Dioxide Anion Gap BUN Creatinine Est GFR ( Amer) Est GFR (Non-Af Amer) Random Glucose Calcium Magnesium 1.7 Total Bilirubin AST ALT Alkaline Phosphatase Total Protein Albumin Globulin Albumin/Globulin Ratio 12/25/17 12/25/17 12/25/17 05:30 05:30 06:10 WBC 14.9 H RBC 3.27 L Hgb 9.3 L Hct 30.2 L MCV 92.4 MCH 28.4 MCHC 30.8 L RDW 18.1 H Plt Count 172 MPV 10.3 Gran % 94.9 H Lymph % (Auto) 2.8 L [place] % (Auto) 2.3 Eos % (Auto) 0.0 L Baso % (Auto) 0.0 Gran # 14.12 H Lymph # (Auto) 0.4 L [place] # (Auto) 0.3 Eos # (Auto) 0.0 Baso # (Auto) 0.00 pCO2 45 pO2 121.0 H HCO3 31.3 H ABG pH 7.45 ABG Total CO2 32.7 H ABG O2 Saturation 99.0 H ABG O2 Content 12.9 L ABG Base Excess 6.6 H ABG Hemoglobin 9.4 L ABG Carboxyhemoglobin 1.6 H POC ABG HHb (Measured) 1.0 ABG Methemoglobin 1.3 ABG O2 Capacity 13.0 L Hgb O2 Saturation 96.1 FiO2 100.0 Sodium 138 Potassium 3.4 L Chloride 98 Carbon Dioxide 35 H Anion Gap 8 L BUN 17 Creatinine 0.3 L Est GFR ( Amer) > 60 Est GFR (Non-Af Amer) > 60 Random Glucose 146 H Calcium 7.2 L Magnesium Total Bilirubin 1.1 AST 26 ALT 20 Alkaline Phosphatase 112 Total Protein 5.1 L Albumin 2.4 L Globulin 2.8 Albumin/Globulin Ratio 0.8 L Critical Care Progress Note - Nutrition Nutrition: Nutrition Category Date Time Status NPO Diet [DIET] Diets 12/16/17 Dinner Ordered Attending/Attestation - Attestation I have personally seen and examined this patient.: Yes I have fully participated in the care of the patient.: Yes I have reviewed all pertinent clinical information: Yes Notes (Text): 12/25/17 14:39 72 yo with 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 Patient undergone aggressive suctioning with subsequent re-expansion of lungs and successful self extubation overnight. He is on 80%high flow 02 and appears to be comfortable. ICS, bronchodilators, steroid taper, chest PT, OOB to chair, PT, IS, abx, BPAP at night, DVT/GI prophylaxis will be continued. Discussed appropriateness of family meeting for advanced directives with primary oncologist--Dr. Wolf in light of advanced malignancy, who agreed that prognosis is poor. Will touch base with family about advanced directives. If they want full support-->will start looking for LTAC, due to likely need for shelter, aggressive chest PT, NIPPV in light of acute on chronic respiratory insufficiency. ccm time 40 min
--- NOTE | 2017-12-25 13:22 | CP.PCM.PN ---
Subjective - Date & Time of Evaluation Date of Evaluation: 12/25/17 Time of Evaluation: 13:04 - Subjective Subjective: Jacqui Keen, PGY2, Progress Note for Dr Wolf: This is a 72 year old male with PMH stage IV NSCLC (with bony metastases, diagnosed last month, treated with palliative radiation by Dr. Vega), COPD, R tibial pathological fx, sacral decubitus ulcer stage IV, admitted for sepsis, failure to thrive, s/p PEG insertion. His hospital course is complicated by hypoxic respiratory failure 2/2 likely aspiration pneumonia, requiring intubation. Patient seen and examined at bedside in the ICU. Patient self extubated last night around 2 AM. Patient remains on bipap, 100%. Daughter at bedside. Patient alert, awake, oriented x 3. States that his breathing is okay on bipap. Denies fevers, chills, nausea, vomiting, abdominal pain. Objective - Vital Signs/Intake and Output Vital Signs (last 24 hours): Temp Pulse Resp BP Pulse Ox 98.9 F 82 18 139/53 L 94 L 12/24/17 22:00 12/25/17 11:32 12/25/17 07:59 12/25/17 11:32 12/25/17 07:40 Intake and Output: 12/25/17 12/25/17 06:59 18:59 Intake Total 984 Balance 984 - Medications Medications: Current Medications Acetaminophen (Tylenol 160mg/5ml Oral Soln) 650 mg PEG Q4 PRN PRN Reason: Pain, Mild (1-3) Arformoterol Tartrate (Brovana) 15 mcg IH [id number] [facility] Last Admin: 12/25/17 07:30 Dose: 15 mcg Collagenase (Santyl) 1 gm TOP DAILY [facility] Last Admin: 12/25/17 09:56 Dose: 1 applic Al Hydrox/Mg Hydrox/Simethicone 30 ml/Diphenhydramine HCl 75 mg/Lidocaine 30 ml 0 ml PO Q2H PRN PRN Reason: MOUTH/THROAT PAIN Diltiazem HCl (Cardizem) 30 mg PO Q6 [facility] Last Admin: 12/25/17 11:32 Dose: 30 mg Enoxaparin Sodium (Lovenox) 30 mg SC DAILY [facility] PRN Reason: Protocol Last Admin: 12/25/17 09:32 Dose: 30 mg Furosemide (Lasix) 20 mg IVP DAILY [facility] Last Admin: 12/25/17 09:33 Dose: 20 mg Vancomycin HCl (Vancomycin 1gm) 1 gm in 250 mls @ 167 mls/hr IVPB Q12H [facility] PRN Reason: Protocol Last Admin: 12/25/17 10:31 Dose: 167 mls/hr Meropenem (Merrem Iv 1 Gm Premix) 50 mls @ 100 mls/hr IVPB Q8 [facility] PRN Reason: Protocol Stop: 01/01/18 14:01 Last Admin: 12/25/17 06:00 Dose: 100 mls/hr diltiaZEM IVPB 100mg in NS (Cardizem 100mg In Ns) 100 mls @ 10 mls/hr IV .Q10H PRN; Protocol; 10 MG/HR PRN Reason: TITRATE PER MD ORDER Last Admin: 12/24/17 17:26 Dose: 10 mg/hr, 10 mls/hr Lactic Acid (Lac-Hydrin 12% Cream (140 G)) 1 ea TOP DAILY [facility] Last Admin: 12/25/17 09:55 Dose: 1 appl Levalbuterol HCl (Xopenex) 0.63 mg IH [id number] PRN PRN Reason: Shortness of Breath Last Admin: 12/25/17 02:30 Dose: 0.63 mg Lidocaine (Lidocaine 5%) 0 gm TOP TID [facility] Last Admin: 12/25/17 09:58 Dose: 1 applic Lorazepam (Ativan) 0.5 mg IVP Q6H PRN; Protocol PRN Reason: Anxiety Methylprednisolone (Solu-Medrol) 20 mg IVP Q12 [facility] Last Admin: 12/25/17 09:33 Dose: 20 mg Non-Formulary Medication (Dimethicone [Proshield Plus Skin Protectant]) 1 applic TOP DAILY [facility] Last Admin: 12/25/17 10:04 Dose: Not Given Ondansetron HCl (Zofran Tab) 4 mg PO Q6 PRN PRN Reason: Nausea/Vomiting Last Admin: 12/15/17 15:18 Dose: 4 mg Pantoprazole Sodium (Protonix Inj) 40 mg IVP DAILY [facility] Last Admin: 12/25/17 09:32 Dose: 40 mg Saliva Substitute (Saliva Substitute) 0 ml PO WM [facility] Last Admin: 12/25/17 11:34 Dose: 1 ml Vitamin A (Vitamin A & D Oint Ud Foilpak) 1 ea TOP TID [facility] Last Admin: 12/25/17 10:21 Dose: 1 ea - Labs Labs: 12/25/17 05:30 12/25/17 05:30 PT 13.6 SECONDS (9.4-12.5) H 12/20/17 07:11 INR 1.18 12/20/17 07:11 APTT 30.0 Seconds (25.1-36.5) 12/19/17 06:15 - Additional Findings Additional findings: - Constitutional Appears: Non-toxic - Head Exam Head Exam: ATRAUMATIC, NORMOCEPHALIC - Eye Exam Eye Exam: EOMI, PERRL. absent: Conjunctival injection, Nystagmus, Scleral icterus Pupil Exam: NORMAL ACCOMODATION, PERRL. absent: Irregular, Unequal - ENT Exam ENT Exam: Mucous Membranes Moist - Neck Exam Neck Exam: Full ROM - Respiratory Exam Respiratory Exam: decreased breath sounds, NORMAL BREATHING PATTERN. absent: Accessory Muscle Use on bipap - Cardiovascular Exam Cardiovascular Exam: RRR, +S1, +S2. absent: Murmur - GI/Abdominal Exam GI & Abdominal Exam: Soft, Normal Bowel Sounds. absent: Firm, Guarding, Rigid, Tenderness, Mass, Organomegaly PEG tube in place, dressing clean, dry, intact, no bleeding noted - Extremities Exam Extremities Exam: Pedal Edema - Back Exam Additional comments: + sacral ulcer - Neurological Exam Neurological Exam: Alert, Awake - Psychiatric Exam Psychiatric exam: Depressed - Skin Skin Exam: Dry, Normal Color, Warm Assessment and Plan - Assessment and Plan (Free Text) Assessment: 72 year old male with PMH stage IV NSCLC (with bony metastases, diagnosed last month, treated with palliative radiation by Dr. Vega), COPD, R tibial pathological fx, sacral decubitus ulcer stage IV, admitted for sepsis, failure to thrive. Patient is s/p PEG tube insertion, on Osmolyte feeds. Patient's hospital course complicated by hypoxic respiratory failure at time of prbc transfusion, requiring intubation and ICU management. Patient self extubated last night, currently on bipap 100%, IV abx, ICU management. Discussed with daughter and patient briefly regarding POLST, states that he would like to get all interventions (including CPR, chest compressions) when time came. However, daughter states that they will have a family discussion again to revisit the advance directive, will further speak to Rachel Rodríguez as well: Hypoxic respiratory failure: 06/23 aspiration pneumonia - On Merrem and Vanc - ID on board. appreciate recs. - On bipap/ 100%. wean as tolerated. ICU management - Blood cultures 06/23 12/23 NTD - Sputum Cx 12/23 neg so far - MRSA nares 12/23 neg - BCx 12/11 (06/23): coag neg staph -Echo 12/13 showed EF 51.5%. Right ventricle moderately dilated. RV systolic function mildly-moderately reduced. Mod pulm HTN. No vegetations - monitor Failure to thrive: -Likely secondary to worsening tumor burden, pain, infection, decubitus ulcer -PEG tube placed. On Osmolyte. tolerating feeds. -Palliative consulted. F/u recs. NSCLC Stage IV -He is s/p first round of carboplatin and pemetrexed -Dr. Vega to continue radiation to the R tibia -Received Aredia at infusion clinic prior to admission, will be able to continue as an outpatient once he has stabilized Hypokalemia: - repleted - monitor Hypophosphatemia: - on neutraphosph tid PO - monitor Normocytic Anemia: -Likely due to anemia of chronic disease, no obvious signs of bleeding at this time -Hgb 9.3 today, s/p 1 unit prbcs 12/22. -Will continue to monitor R Tibial and foot pain: -He is s/p repair by Dr. Fuller -We will continue 5% topical lidocaine ointment TID for his continuing pain -Oxycodone 5 mg q6h PRN for pain -Nurse instructed to use mulipodus boots (as given by Podiatry) and Amlactin for xerosis of foot. -Podiatry consulted, appreciate recs Sacral Decubitus Ulcer: -Per surgery, his ulcer is unstageable at this time -Q2 turns, air mattress, BID santyl application, multipodus boots ordered -Out of bed to chair twice daily, requested nursing obtain and use donut pad while he is in the chair DVT/GI PPX: Lovenox and protonix Case seen and discussed with Dr. Wolf
--- NOTE | 2017-12-25 13:35 | CP.PCM.PN ---
Subjective - Date & Time of Evaluation Date of Evaluation: 12/25/17 Time of Evaluation: 09:45 - Subjective Subjective: Patient is now off the ventilator but still on the BiPAP, still weak-looking, no fevers, no diarrhea. Objective - Vital Signs/Intake and Output Vital Signs (last 24 hours): Temp Pulse Resp BP Pulse Ox 98.9 F 88 18 149/80 94 L 12/24/17 22:00 12/25/17 07:59 12/25/17 07:59 12/25/17 09:33 12/25/17 07:40 Intake and Output: 12/25/17 12/25/17 06:59 18:59 Intake Total 984 Balance 984 - Medications Medications: Current Medications Acetaminophen (Tylenol 160mg/5ml Oral Soln) 650 mg PEG Q4 PRN PRN Reason: Pain, Mild (1-3) Arformoterol Tartrate (Brovana) 15 mcg IH [id number] [facility] Last Admin: 12/25/17 07:30 Dose: 15 mcg Collagenase (Santyl) 1 gm TOP DAILY [facility] Last Admin: 12/24/17 09:20 Dose: 1 applic Al Hydrox/Mg Hydrox/Simethicone 30 ml/Diphenhydramine HCl 75 mg/Lidocaine 30 ml 0 ml PO Q2H PRN PRN Reason: MOUTH/THROAT PAIN Diltiazem HCl (Cardizem) 30 mg PO Q6 [facility] Last Admin: 12/25/17 06:00 Dose: 30 mg Enoxaparin Sodium (Lovenox) 30 mg SC DAILY [facility] PRN Reason: Protocol Last Admin: 12/25/17 09:32 Dose: 30 mg Furosemide (Lasix) 20 mg IVP DAILY [facility] Last Admin: 12/25/17 09:33 Dose: 20 mg Vancomycin HCl (Vancomycin 1gm) 1 gm in 250 mls @ 167 mls/hr IVPB Q12H [facility] PRN Reason: Protocol Last Admin: 12/24/17 13:57 Dose: 167 mls/hr Meropenem (Merrem Iv 1 Gm Premix) 50 mls @ 100 mls/hr IVPB Q8 [facility] PRN Reason: Protocol Stop: 01/01/18 14:01 Last Admin: 12/25/17 06:00 Dose: 100 mls/hr Fentanyl Citrate (Fentanyl Citrate/Sodium Chloride 1 Mg/100 Ml) 1,000 mcg in 100 mls @ 2 mls/hr IV .Q24H PRN; Protocol; 20 MCG/HR PRN Reason: TITRATE PER MD ORDER Last Admin: 12/24/17 00:00 Dose: 75 mcg/hr, 7.5 mls/hr diltiaZEM IVPB 100mg in NS (Cardizem 100mg In Ns) 100 mls @ 10 mls/hr IV .Q10H PRN; Protocol; 10 MG/HR PRN Reason: TITRATE PER MD ORDER Last Admin: 12/24/17 17:26 Dose: 10 mg/hr, 10 mls/hr Propofol (Diprivan) 1,000 mg in 100 mls @ 1.565 mls/hr IV .Q24H PRN; Protocol; 5 MCG/KG/MIN PRN Reason: TITRATE PER MD ORDER Last Admin: 12/24/17 17:26 Dose: 5 mcg/kg/min, 1.565 mls/hr Lactic Acid (Lac-Hydrin 12% Cream (140 G)) 1 ea TOP DAILY [facility] Last Admin: 12/24/17 18:50 Dose: Not Given Levalbuterol HCl (Xopenex) 0.63 mg IH [id number] PRN PRN Reason: Shortness of Breath Last Admin: 12/25/17 02:30 Dose: 0.63 mg Lidocaine (Lidocaine 5%) 0 gm TOP TID [facility] Last Admin: 12/24/17 18:46 Dose: Not Given Lorazepam (Ativan) 0.5 mg IVP Q6H PRN; Protocol PRN Reason: Anxiety Methylprednisolone (Solu-Medrol) 20 mg IVP Q12 [facility] Last Admin: 12/25/17 09:33 Dose: 20 mg Non-Formulary Medication (Dimethicone [Proshield Plus Skin Protectant]) 1 applic TOP DAILY [facility] Last Admin: 12/24/17 17:33 Dose: Not Given Ondansetron HCl (Zofran Tab) 4 mg PO Q6 PRN PRN Reason: Nausea/Vomiting Last Admin: 12/15/17 15:18 Dose: 4 mg Pantoprazole Sodium (Protonix Inj) 40 mg IVP DAILY [facility] Last Admin: 12/25/17 09:32 Dose: 40 mg Saliva Substitute (Saliva Substitute) 0 ml PO WM [facility] Last Admin: 12/25/17 08:44 Dose: 1 ml Vitamin A (Vitamin A & D Oint Ud Foilpak) 1 ea TOP TID [facility] Last Admin: 12/24/17 18:48 Dose: 1 ea - Labs Labs: 12/25/17 05:30 12/25/17 05:30 PT 13.6 SECONDS (9.4-12.5) H 12/20/17 07:11 INR 1.18 12/20/17 07:11 APTT 30.0 Seconds (25.1-36.5) 12/19/17 06:15 - Constitutional Appears: Cachectic, Chronically Ill - Head Exam Head Exam: NORMAL INSPECTION - Respiratory Exam Respiratory Exam: Decreased Breath Sounds Additional comments: right chest wall anterior port-a-cath in place - Cardiovascular Exam Cardiovascular Exam: +S1, +S2 - GI/Abdominal Exam GI & Abdominal Exam: Soft. absent: Tenderness Assessment and Plan - Assessment and Plan (Free Text) Plan: Assessment Severe sepsis S/P VDRF due to right lower lobe HCAP on top of methicillin- resistant coagulase negative staph bacteremia, suspicious for port-a-cath as the source S/P infected unstageable sacral ulcer (skin and skin structure infection) metastatic non-small cell lung cancer cachexia COPD chronic anemia anxiety dyslipidemia HTN Plan continue Vancomycin day 13 and Merrem day 3 will continue monitor clinically overall prognosis is poor
--- NOTE | 2017-12-25 16:00 | PN ---
Copied To: Spencer Muñoz MD Attending MD: Spencer Muñoz MD DATE: 12/25/2017 SUBJECTIVE: The patient is seen and examined at bedside. He extubated himself overnight. He refuses to be examined. He appears to be alert, awake and capable of making his own decisions. He is on BiPAP right now (14/6/100%). He is pooling 710 of tidal volume with a respiratory rate about 16. PHYSICAL EXAMINATION: VITAL SIGNS: Heart rate 88, blood pressure 136/64, respiratory rate of 18. As noted before, the patient refused to be examined. LABORATORY DATA: WBC 14.9, up from 12.5; hemoglobin 9.3; platelet count 172. Sodium 138, potassium 3.4, chloride 98, carbon dioxide 35, BUN 17, creatinine 0.3, glucose 146, AST 26, ALT 20. MEDICATIONS: Tylenol p.r.n., Brovana, Cardizem 30 mg p.o. every 6, Lovenox 30 mg subcutaneous daily, Lasix 20 mg IV daily, Xopenex p.r.n., meropenem, Solu-Medrol 20 mg IV every 12, Zofran p.r.n., propofol, vancomycin. ASSESSMENT AND PLAN: This is a 72-year-old gentleman with metastatic non-small lung cancer to vertebrae and tibia with pathologic fracture of tibia. Presently, the patient is extubated on BiPAP on high FiO2. We will try to wean down FiO2 as tolerated. Possibility of superimposed infection cannot be ruled out and the patient is on broad-spectrum antibiotics. The patient does have underlying diagnosis of chronic obstructive pulmonary disease and he is on bronchodilators and low-dose steroids. We will touch base with the patient's family about advanced directives and the knowledge of the patient's wishes as patient wearing BiPAP and appears to be leaning toward no aggressive measures. We will continue to target euvolemia, euglycemia, normothermia and oxygen saturation more than 90%. We will continue with deep venous thrombosis, gastrointestinal prophylaxis. ccm time 40 min Spencer Muñoz MD [facility] # [id number]
[2017-12-25] MEDS ORDERED: Dexmedetomidine 400mcg/100mL 400 MCG/100 ML BOTTLE IV PRN (18:02)
--- NOTE | 2017-12-25 18:12 | PN ---
Copied To: Judit Dent MD Attending MD: Judit Dent MD DATE: 12/25/2017 PULMONARY CRITICAL CARE PROGRESS NOTE REFERRING PHYSICIAN: Adolfo Durbin MD SUBJECTIVE: He is self-extubated this morning, presently on noninvasive ventilation. Daughter is at bedside, much more awake and alert. Feels better, still have a cough, unable to clear pulmonary secretion. No hemoptysis, emesis or hematuria. No diarrhea. Has some pain in the right lower extremity. OBJECTIVE: VITAL SIGNS: On noninvasive ventilation, afebrile, heart rate is 82, respiratory rate is 20, blood pressure 139/53, pulse ox is 94% on noninvasive ventilation. HEENT: Dry mucous membrane. Crowded airway. NECK: Supple. No JVD. LUNGS: Have decreased breath sounds on the left lung, much improved compared to yesterday. HEART: S1 and S2. ABDOMEN: Soft, nontender. No organomegaly. EXTREMITIES: Has tenderness on the right lower extremities. NEUROLOGICAL: Awake and alert. Follows simple command. MEDICATIONS: He is on lorazepam 0.5 mg every 6 hours p.r.n., Brovana inhaled twice a day, Cardizem 30 mg every 6 hours, also on IV Cardizem, getting Lasix 20 mg IV daily, lidocaine patch at affected area, Lovenox 30 mg subcu daily, Magic mouthwash p.r.n. basis, meropenem 1 g IV every 8 hours, Protonix 40 mg daily, Saliva Substitute p.r.n. basis, Santyl 1 mg topically at the affected area, Solu-Medrol 20 mg every 12 hours, Tylenol p.r.n., vancomycin 1 g IV every 12 hours, vitamin A and D ointment to affected area, Xopenex inhaled every 6 hours p.r.n., Zofran p.r.n. basis. LABORATORY DATA: Shows hemoglobin 9.3, hematocrit 30.2, WBC 14.9, platelet count is 172. Blood gases show pH 7.45, pCO2 45, O2 is 121, this is on 100% oxygen. Sodium 138, potassium 3.4, chloride 98, bicarbonate 35, BUN 17, creatinine 0.3, glucose is 146, calcium is 7.2, AST 26, ALT 20, alkaline phosphatase is 112. Albumin is 2.4. Chest x-ray shows left medial upper lobe suprahilar consolidation. There is some left effusion. IMPRESSION AND PLAN: Unresectable lung cancer with metastatic disease to the bone, vertebra. Has a pathological fracture of the right tibia, been on radiation requiring open surgery, chronic obstructive lung disease, collapsed left lower lobe with pleural effusion, respiratory failure, self-extubated today on noninvasive ventilation. Spoke to family at bedside. All the questions answered. Spoke to nursing staff. We will continue aggressive respiratory therapy with incentive spirometer and also with p.r.n. suction every 4 hours. Requested to change supplement oxygen to high-flow nasal cannula with 50 liters oxygen, 8% oxygen, so we can get some pulmonary toileting same time. BiPAP use at nighttime, or if does not tolerate high-flow nasal cannula oxygen, continue steroids. Continue antibiotics, incentive spirometer, chest therapy, gastric prophylaxis, deep vein thrombosis prophylaxis. Follow up ABG, chest x-ray, CBC, CMP in the morning. Critical care time is more than 35 minutes. Thank you and we will follow with you. Judit Dent MD : 12/25/2017 12:42:40
--- NOTE | 2017-12-25 19:18 | PN ---
Copied To: Judit Pro MD Attending MD: Judit Pro MD DATE: 12/25/2017 REASON FOR CONSULTATION: Cardiac evaluation, status post intubated and now successfully extubated, lung CA with metastasis. SUBJECTIVE: The patient is confused, on CPAP, status post successfully extubated. PHYSICAL EXAMINATION: VITAL SIGNS: Temperature afebrile, heart rate 82, blood pressure 139/53. HEENT: PERRLA. Extraocular muscles intact. NECK: Supple. No carotid bruits or thyromegaly. CHEST: Clear to auscultation. HEART: S1 and S2, regular. ABDOMEN: Soft. EXTREMITIES: Clubbing and cyanosis negative. LABORATORY DATA: Blood workup as follows: WBC 14.9, hemoglobin 9.3, hematocrit 30.2, and platelet count 172. Chemistry shows sodium 138, potassium 3.4, chloride 98, carbon dioxide 35, BUN 17, creatinine 0.3. Total protein 5.1, albumin 2.4, albumin and globulin ratio is 0.8. IMPRESSION: A 72-year-old male with past medical history significant for non-small cell cancer, unresectable, who was weakened and got short of breath, intubated, history of widespread metastasis with pathological fracture of the tibia, status post open reduction and internal fixation. Ejection fraction 50%, moderately dilated right ventricle, moderately reduced right ventricular systolic function, moderate pulmonary hypertension. Awaiting for percutaneous endoscopic gastrostomy placement for feeding. Hyponatremic. Moved to ICU and now the patient is successfully extubated. Overall, the patient's condition is critical. Prognosis is extremely guarded. RECOMMENDATIONS: Continue supportive care. Continue broad-spectrum antibiotics. Continue non-invasive ventilator as tolerated. Once the patient is stable, consider PEG and increased nutritional support. Overall, the patient's condition is critical. Long-term prognosis is guarded. Continue Cardizem p.o. every 6 hours as tolerated. Continue . We will follow with you. Continue DVT prophylaxis. Thank you, Dr. Wolf, for providing us the opportunity in taking care of the patient, Alton Monson. Judit Pro MD [facility] # [id number]
[2017-12-26] MEDS: Meropenem IV 1 gm in NS 50 ML IVPB SCH ×2 (06:06→13:14)
[2017-12-26 07:17] LABS: HEMOGLOBIN 8.5 g/dL (14.0-18.0); MEAN CELL VOLUME 92.1 fl (80.0-105.0); MEAN CORPUSCULAR HEMOGLOBIN 29.3 pg (25.0-35.0); MEAN CORPUSCULAR HGB CONC 31.8 g/dl (31.0-37.0); MEAN PLATELET VOLUME 10.7 fl (7.0-11.0); RBC 2.9 10^6/uL (3.5-6.1); RED CELL DISTRIBUTION WIDTH 18.2 % (11.5-14.5); WHITE BLOOD COUNT 11.2 10^3/ul (4.5-11.0)
[2017-12-26] MEDS: Arformoterol 15 mcg/2 ml Inh Sol IH SCH (08:07)
[2017-12-26 08:12] VITALS: TEMP 98.9
--- NOTE | 2017-12-26 09:32 | CP.PCM.PN ---
<Abner,Kovil V - Last Filed: 12/26/17 21:29> Objective - Vital Signs/Intake and Output Vital Signs (last 24 hours): Temp Pulse Resp BP Pulse Ox 98.9 F 71 18 118/54 L 65 L 12/25/17 22:00 12/26/17 18:20 12/26/17 18:20 12/26/17 18:00 12/26/17 18:20 Intake and Output: 12/26/17 12/27/17 18:59 06:59 Intake Total 780 Output Total 650 Balance 130 - Medications Medications: Current Medications Acetaminophen (Tylenol 160mg/5ml Oral Soln) 650 mg PEG Q4 PRN PRN Reason: Pain, Mild (1-3) Arformoterol Tartrate (Brovana) 15 mcg IH [id number] [facility] Last Admin: 12/26/17 08:07 Dose: 15 mcg Collagenase (Santyl) 1 gm TOP DAILY [facility] Last Admin: 12/26/17 10:47 Dose: 1 applic Al Hydrox/Mg Hydrox/Simethicone 30 ml/Diphenhydramine HCl 75 mg/Lidocaine 30 ml 0 ml PO Q2H PRN PRN Reason: MOUTH/THROAT PAIN Diltiazem HCl (Cardizem) 30 mg PO Q6 [facility] Last Admin: 12/26/17 17:27 Dose: 30 mg Enoxaparin Sodium (Lovenox) 30 mg SC DAILY [facility] PRN Reason: Protocol Last Admin: 12/26/17 10:40 Dose: 30 mg Furosemide (Lasix) 20 mg IVP DAILY [facility] Last Admin: 12/26/17 10:44 Dose: 20 mg Vancomycin HCl (Vancomycin 1gm) 1 gm in 250 mls @ 167 mls/hr IVPB Q12H [facility] PRN Reason: Protocol Last Admin: 12/26/17 10:39 Dose: 167 mls/hr diltiaZEM IVPB 100mg in NS (Cardizem 100mg In Ns) 100 mls @ 10 mls/hr IV .Q10H PRN; Protocol; 10 MG/HR PRN Reason: TITRATE PER MD ORDER Last Admin: 12/24/17 17:26 Dose: 10 mg/hr, 10 mls/hr Dexmedetomidine HCl (Precedex 400mcg/100ml) 400 mcg in 100 mls @ 3.025 mls/hr IV .Q24H PRN; Protocol; 0.2 MCG/KG/HR PRN Reason: Agitation Last Admin: 12/25/17 18:35 Dose: 0.2 mcg/kg/hr, 3.025 mls/hr Lactic Acid (Lac-Hydrin 12% Cream (140 G)) 1 ea TOP DAILY [facility] Last Admin: 12/26/17 10:46 Dose: 1 appl Levalbuterol HCl (Xopenex) 0.63 mg IH [id number] PRN PRN Reason: Shortness of Breath Last Admin: 12/25/17 20:00 Dose: 0.63 mg Lidocaine (Lidocaine 5%) 0 gm TOP TID [facility] Last Admin: 12/26/17 17:30 Dose: 1 applic Lorazepam (Ativan) 0.5 mg IVP Q6H PRN; Protocol PRN Reason: Anxiety Methylprednisolone (Solu-Medrol) 20 mg IVP Q12 [facility] Last Admin: 12/26/17 10:40 Dose: 20 mg Non-Formulary Medication (Dimethicone [Proshield Plus Skin Protectant]) 1 applic TOP DAILY [facility] Last Admin: 12/26/17 13:36 Dose: Not Given Ondansetron HCl (Zofran Tab) 4 mg PO Q6 PRN PRN Reason: Nausea/Vomiting Last Admin: 12/15/17 15:18 Dose: 4 mg Pantoprazole Sodium (Protonix Inj) 40 mg IVP DAILY [facility] Last Admin: 12/26/17 10:42 Dose: 40 mg Quetiapine Fumarate (Seroquel) 50 mg PO HS [facility] PRN Reason: Protocol Last Admin: 12/25/17 21:30 Dose: 50 mg Saliva Substitute (Saliva Substitute) 0 ml PO WM [facility] Last Admin: 12/26/17 17:31 Dose: 1 ml Vitamin A (Vitamin A & D Oint Ud Foilpak) 1 ea TOP TID [facility] Last Admin: 12/26/17 17:30 Dose: 1 ea - Labs Labs: 12/26/17 06:45 12/26/17 09:00 PT 13.6 SECONDS (9.4-12.5) H 12/20/17 07:11 INR 1.18 12/20/17 07:11 APTT 30.0 Seconds (25.1-36.5) 12/19/17 06:15 Attending/Attestation - Attestation I have personally seen and examined this patient.: Yes I have fully participated in the care of the patient.: Yes I have reviewed all pertinent clinical information, including history, physical exam and plan: Yes Notes (Text): This is an addendum to GI progress report dictated by Ingrid Ellison APN.The patient was seen and examined earlier. Medical records, lab studies, imagings were reviewed. Last 24 hours events reviewed. Agreed with the above treatment plan as outlined in Ingrid Ellison APN's notes with the addition of the following Patient is tolerating GT feeding No significant residue Follow-up hemoglobin Thank you very much for allowing us to participate in the care of the patient. We will sign off now and please reconsult as needed 12/26/17 21:29 <Ingrid Ellison J - Last Filed: 12/27/17 08:29> Subjective - Date & Time of Evaluation Date of Evaluation: 12/26/17 Time of Evaluation: 08:40 - Subjective Subjective: Seen and examined at bedside, chart reviewed, no acute overnight events reported. PEG feed w/ Osmolite at 60 cc/hr and tolerating, as per nurse Mcintyre, residuals last night 10-15 cc. Had semi-loose stool last night, no overt GI bleeding. Patient is easly arousable, on high flow oxygen. No acute distress. Objective - Vital Signs/Intake and Output Vital Signs (last 24 hours): Temp Pulse Resp BP Pulse Ox 98.9 F 82 15 148/96 H 98 12/25/17 22:00 12/26/17 08:10 12/26/17 08:10 12/26/17 08:00 12/26/17 08:10 Intake and Output: 12/26/17 12/26/17 06:59 18:59 Intake Total 773 Output Total 300 Balance 473 - Medications Medications: Current Medications Acetaminophen (Tylenol 160mg/5ml Oral Soln) 650 mg PEG Q4 PRN PRN Reason: Pain, Mild (1-3) Arformoterol Tartrate (Brovana) 15 mcg IH [id number] [facility] Last Admin: 12/26/17 08:07 Dose: 15 mcg Collagenase (Santyl) 1 gm TOP DAILY [facility] Last Admin: 12/25/17 09:56 Dose: 1 applic Al Hydrox/Mg Hydrox/Simethicone 30 ml/Diphenhydramine HCl 75 mg/Lidocaine 30 ml 0 ml PO Q2H PRN PRN Reason: MOUTH/THROAT PAIN Diltiazem HCl (Cardizem) 30 mg PO Q6 [facility] Last Admin: 12/26/17 06:04 Dose: 30 mg Enoxaparin Sodium (Lovenox) 30 mg SC DAILY [facility] PRN Reason: Protocol Last Admin: 12/25/17 09:32 Dose: 30 mg Furosemide (Lasix) 20 mg IVP DAILY [facility] Last Admin: 12/25/17 09:33 Dose: 20 mg Vancomycin HCl (Vancomycin 1gm) 1 gm in 250 mls @ 167 mls/hr IVPB Q12H [facility] PRN Reason: Protocol Last Admin: 12/25/17 10:31 Dose: 167 mls/hr Meropenem (Merrem Iv 1 Gm Premix) 50 mls @ 100 mls/hr IVPB Q8 [facility] PRN Reason: Protocol Stop: 01/01/18 14:01 Last Admin: 12/26/17 06:06 Dose: 100 mls/hr diltiaZEM IVPB 100mg in NS (Cardizem 100mg In Ns) 100 mls @ 10 mls/hr IV .Q10H PRN; Protocol; 10 MG/HR PRN Reason: TITRATE PER MD ORDER Last Admin: 12/24/17 17:26 Dose: 10 mg/hr, 10 mls/hr Dexmedetomidine HCl (Precedex 400mcg/100ml) 400 mcg in 100 mls @ 3.025 mls/hr IV .Q24H PRN; Protocol; 0.2 MCG/KG/HR PRN Reason: Agitation Last Admin: 12/25/17 18:35 Dose: 0.2 mcg/kg/hr, 3.025 mls/hr Lactic Acid (Lac-Hydrin 12% Cream (140 G)) 1 ea TOP DAILY [facility] Last Admin: 12/25/17 09:55 Dose: 1 appl Levalbuterol HCl (Xopenex) 0.63 mg IH [id number] PRN PRN Reason: Shortness of Breath Last Admin: 12/25/17 20:00 Dose: 0.63 mg Lidocaine (Lidocaine 5%) 0 gm TOP TID [facility] Last Admin: 12/25/17 18:15 Dose: 1 applic Lorazepam (Ativan) 0.5 mg IVP Q6H PRN; Protocol PRN Reason: Anxiety Methylprednisolone (Solu-Medrol) 20 mg IVP Q12 [facility] Last Admin: 12/25/17 21:31 Dose: 20 mg Non-Formulary Medication (Dimethicone [Proshield Plus Skin Protectant]) 1 applic TOP DAILY [facility] Last Admin: 12/25/17 10:04 Dose: Not Given Ondansetron HCl (Zofran Tab) 4 mg PO Q6 PRN PRN Reason: Nausea/Vomiting Last Admin: 12/15/17 15:18 Dose: 4 mg Pantoprazole Sodium (Protonix Inj) 40 mg IVP DAILY [facility] Last Admin: 12/25/17 09:32 Dose: 40 mg Quetiapine Fumarate (Seroquel) 50 mg PO HS [facility] PRN Reason: Protocol Last Admin: 12/25/17 21:30 Dose: 50 mg Saliva Substitute (Saliva Substitute) 0 ml PO WM [facility] Last Admin: 12/25/17 18:15 Dose: 1 ml Vitamin A (Vitamin A & D Oint Ud Foilpak) 1 ea TOP TID [facility] Last Admin: 12/25/17 18:14 Dose: 1 ea - Labs Labs: 12/26/17 06:45 12/25/17 05:30 PT 13.6 SECONDS (9.4-12.5) H 12/20/17 07:11 INR 1.18 12/20/17 07:11 APTT 30.0 Seconds (25.1-36.5) 12/19/17 06:15 - Constitutional Appears: No Acute Distress - Eye Exam Eye Exam: Normal appearance. absent: Scleral icterus - ENT Exam ENT Exam: Mucous Membranes Moist - Neck Exam Neck Exam: Normal Inspection - Respiratory Exam Respiratory Exam: Decreased Breath Sounds, Rhonchi, NORMAL BREATHING PATTERN. absent: Wheezes, Respiratory Distress - Cardiovascular Exam Cardiovascular Exam: +S1, +S2 - GI/Abdominal Exam GI & Abdominal Exam: Soft, Normal Bowel Sounds. absent: Guarding, Tenderness, Organomegaly, Rebound Additional comments: PEG present, insertion site is w/out discharge or erythema. - Extremities Exam Extremities Exam: Pedal Edema. absent: Calf Tenderness - Neurological Exam Neurological Exam: Alert, Awake, Oriented x3 Assessment and Plan - Assessment and Plan (Free Text) Assessment: Assessment: Acute hypoxic respiratory failure s/p intubation; concern for pneumonia vs transfusion reaction/TACO/TRALI- resolved s/p self-extubation Anemia s/p 1.5 units PRBCs Failure to thrive w/ worsening dysphagia S/P EGD/ PEG tube running at 60 ml/hr of Osmolite Stage IV NSCLC w/ bony metastases Plan: continue Osmolite 60 cc/hr continue to check residuals and adjust according continue GI prophylaxsis on Lovenox on antibiotics a per ID as per oncology Seen and discussed w/ Dr. Levine.
[2017-12-26 09:55] LABS: ALB/GLOB RATIO 0.8 (1.1-1.8); ALBUMIN 2.2 g/dL (3.0-4.8); ALT/SGPT 21 U/L (7-56); AST/SGOT 21 U/L (17-59); BLOOD UREA NITROGEN 19 mg/dL (7-21); CALCIUM 7.1 mg/dL (8.4-10.5); GFR AFRICAN-AMERICAN > 60; GFR NON-AFRICAN AMERICAN > 60
[2017-12-26] MEDS: Vancomycin 1gm in NS 250ml 1 GM/250 ML BAG IVPB SCH (10:39)
[2017-12-26] MEDS: Vitamins A & D Oint UD Foilpak TOP SCH ×3 (10:39→17:30)
[2017-12-26] MEDS: Enoxaparin 30 mg Syringe SC SCH (10:40)
[2017-12-26] MEDS: MethylPREDNISolone 40 mg Vial IVP SCH (10:40)
[2017-12-26] MEDS: Ammonium Lactate 12% Cream (140 g) TOP SCH (10:46)
[2017-12-26] MEDS: Collagenase 250 Units/gm Ointment(30 gm) TOP SCH (10:47)
[2017-12-26] MEDS: Lidocaine 5% Oint(35 gm) TOP SCH ×3 (10:47→17:30)
[2017-12-26] MEDS: Saliva Substitute 44.3 ML PO SCH ×4 (10:48→17:31)
--- NOTE | 2017-12-26 12:43 | CP.CCUPN ---
<Kyle Alvarez - Last Filed: 12/26/17 12:40> CCU Subjective - Physician Review Events Since Last Encounter (Free Text): 12/26/17 12:40 Patient seen and examined at bedside. He became agitated overnight and was started on precedex drip. Otherwise, patient is still altered but remembers who I am and denies any complaints this morning. CCU Objective - Vital Signs / Intake & Output Vital Signs (Last 4 hours): Vital Signs Pulse Resp BP Pulse Ox 12/26/17 10:44 110/48 L 12/26/17 10:00 16 12/26/17 09:50 73 14 97 12/26/17 09:40 75 14 96 12/26/17 09:30 75 14 96 12/26/17 09:20 75 14 99 12/26/17 09:10 76 15 100 12/26/17 09:00 77 14 111/50 L 99 12/26/17 08:50 81 15 97 Intake and Output (Last 8hrs): Intake & Output 12/25/17 12/26/17 12/26/17 22:59 06:59 14:59 Intake Total 1140 773 Output Total 1200 300 Balance -60 473 Weight 58.712 kg Intake: IV 420 113 Precedex 33 Right Internal Jugular 420 80 Tube Feeding 720 660 Output: Urine 1200 300 Condom 1200 300 Stool 0 Emesis 0 Other: # Bowel Movements 0 - Physical Exam Head: Positive for: Atraumatic, Normocephalic Pupils: Positive for: PERRL Extroacular Muscles: Positive for: EOMI Conjunctiva: Positive for: Normal Mouth: Positive for: Dry Neck: Positive for: Normal Range of Motion. Negative for: MIDLINE TENDERNESS, Paraspinal Tenderness Respiratory/Chest: Positive for: Clear to Auscultation, Decreased Breath Sounds (decreased breath sounds left side). Negative for: Respiratory Distress, Accessory Muscle Use Cardiovascular: Positive for: Regular Rate and Rhythm, Normal S1, S2. Negative for: Murmurs Abdomen: Negative for: Tenderness, Distention, Peritoneal Signs Back: Positive for: Normal Inspection Upper Extremity: Positive for: Normal Inspection. Negative for: Cyanosis, Edema Lower Extremity: Positive for: Other (surgical scar rt knee, clean, dr, and intact). Negative for: Edema, Normal ROM (mild pain with movement) Neurological: Positive for: GCS=15, CN II-XII Intact, Speech Normal Skin: Positive for: Warm, Dry, Normal Color. Negative for: Rashes Psychiatric: Positive for: Alert, Oriented x 3, Normal Insight, Normal Concentration - Medications Active Medications: Active Medications Generic Name Dose Route Start Last Admin Trade Name Freq PRN Reason Stop Dose Admin Acetaminophen 650 mg 12/22/17 12:02 Tylenol 160mg/5ml Oral Soln PEG Q4 PRN Pain, Mild (1-3) Arformoterol Tartrate 15 mcg 12/12/17 08:00 12/26/17 08:07 Brovana IH 15 mcg [id number] FRANKY Administration Collagenase 1 gm 12/12/17 12:15 12/26/17 10:47 Santyl TOP 1 applic DAILY FRANKY Administration Al Hydrox/Mg Hydrox/ 0 ml 12/12/17 15:59 Simethicone 30 ml/ PO Diphenhydramine HCl 75 mg/ Q2H PRN Lidocaine 30 ml MOUTH/THROAT PAIN Diltiazem HCl 30 mg 12/24/17 08:45 12/26/17 06:04 Cardizem PO 30 mg Q6 FRANKY Administration Enoxaparin Sodium 30 mg 12/13/17 10:00 12/26/17 10:40 Lovenox SC 30 mg DAILY FRANKY Administration Protocol Furosemide 20 mg 12/24/17 10:00 12/26/17 10:44 Lasix IVP 20 mg DAILY FRANKY Administration Vancomycin HCl 1 gm in 250 mls @ 167 mls/hr 12/22/17 23:30 12/26/17 10:39 Vancomycin 1gm IVPB 167 mls/hr Q12H FRANKY Administration Protocol Meropenem 50 mls @ 100 mls/hr 12/23/17 14:00 12/26/17 06:06 Merrem Iv 1 Gm Premix IVPB 01/01/18 14:01 100 mls/hr Q8 FRANKY Administration Protocol diltiaZEM IVPB 100mg in NS 100 mls @ 10 mls/hr 12/24/17 17:12 12/24/17 17:26 Cardizem 100mg In Ns IV 10 mg/hr .Q10H PRN 10 mls/hr TITRATE PER MD ORDER Administration Protocol 10 MG/HR Dexmedetomidine HCl 400 mcg in 100 mls @ 3.025 mls/hr 12/25/17 18:02 18:35 Precedex 400mcg/100ml IV 0.2 mcg/kg/hr .Q24H PRN 3.025 mls/hr Agitation Administration Protocol 0.2 MCG/KG/HR Lactic Acid 1 ea 12/15/17 10:00 12/26/17 10:46 Lac-Hydrin 12% Cream (140 G) TOP 1 appl DAILY FRANKY Administration Levalbuterol HCl 0.63 mg 12/16/17 14:05 12/25/17 20:00 Xopenex IH 0.63 mg [id number] PRN Administration Shortness of Breath Lidocaine 0 gm 12/13/17 14:00 12/26/17 10:47 Lidocaine 5% TOP 1 applic TID FRANKY Administration Lorazepam 0.5 mg 12/23/17 12:01 Ativan IVP Q6H PRN Anxiety Protocol Methylprednisolone 20 mg 12/23/17 10:45 12/26/17 10:40 Solu-Medrol IVP 20 mg Q12 FRANKY Administration Non-Formulary Medication 1 applic 12/13/17 10:00 12/25/17 10:04 Dimethicone [Proshield Plus Skin Protectant] TOP Not Given DAILY FRANKY Ondansetron HCl 4 mg 12/12/17 15:48 12/15/17 15:18 Zofran Tab PO 4 mg Q6 PRN Administration Nausea/Vomiting Pantoprazole Sodium 40 mg 12/24/17 10:00 12/26/17 10:42 Protonix Inj IVP 40 mg DAILY FRANKY Administration Quetiapine Fumarate 50 mg 12/25/17 22:00 12/25/17 21:30 Seroquel PO 50 mg HS FRANKY Administration Protocol Saliva Substitute 0 ml 12/13/17 17:00 12/26/17 10:48 Saliva Substitute PO 1 ml WM FRANKY Administration Vitamin A 1 ea 12/12/17 18:00 12/26/17 10:39 Vitamin A & D Oint Ud Foilpak TOP 1 ea TID FRANKY Administration - Patient Studies Lab Studies: Microbiology Studies 12/23/17 17:35 Gram Stain - Final Sputum Sputum Culture - Final Yeast Species 12/23/17 18:00 Blood Culture - Preliminary Blood NO GROWTH AFTER 48 HOURS 12/23/17 18:30 Blood Culture - Preliminary Blood NO GROWTH AFTER 48 HOURS 12/23/17 17:40 Urine Culture - Final Urine No Growth (<1,000 CFU/ML) Lab Studies 12/26/17 12/26/17 12/26/17 Range/Units 09:00 07:18 06:45 WBC 11.2 H D (4.5-11.0) 10^3/ul RBC 2.90 L (3.5-6.1) 10^6/uL Hgb 8.5 L (14.0-18.0) g/dL Hct 26.7 L (42.0-52.0) % MCV 92.1 (80.0-105.0) fl MCH 29.3 (25.0-35.0) pg MCHC 31.8 (31.0-37.0) g/dl RDW 18.2 H (11.5-14.5) % Plt Count 123 (120.0-450.0) 10^3/uL MPV 10.7 (7.0-11.0) fl Sodium 137 (132-148) mmol/L Potassium 4.1 (3.6-5.0) mmol/L Chloride 100 (98-107) mmol/L Carbon Dioxide 34 H (21-33) mmol/L Anion Gap 7 L (10-20) BUN 19 (7-21) mg/dL Creatinine 0.3 L (0.8-1.5) mg/dl Est GFR ( Amer) > 60 Est GFR (Non-Af Amer) > 60 POC Glucose (mg/dL) 165 H (65-110) mg/dL Random Glucose 136 H (70-110) mg/dL Calcium 7.1 L (8.4-10.5) mg/dL Total Bilirubin 1.0 (0.2-1.3) mg/dL AST 21 (17-59) U/L ALT 21 (7-56) U/L Alkaline Phosphatase 104 (38-126) U/L Total Protein 4.9 L (5.8-8.3) g/dL Albumin 2.2 L (3.0-4.8) g/dL Globulin 2.7 gm/dL Albumin/Globulin Ratio 0.8 L (1.1-1.8) 12/25/17 12/25/17 12/25/17 Range/Units 21:42 16:00 11:00 WBC (4.5-11.0) 10^3/ul RBC (3.5-6.1) 10^6/uL Hgb (14.0-18.0) g/dL Hct (42.0-52.0) % MCV (80.0-105.0) fl MCH (25.0-35.0) pg MCHC (31.0-37.0) g/dl RDW (11.5-14.5) % Plt Count (120.0-450.0) 10^3/uL MPV (7.0-11.0) fl Sodium (132-148) mmol/L Potassium (3.6-5.0) mmol/L Chloride (98-107) mmol/L Carbon Dioxide (21-33) mmol/L Anion Gap (10-20) BUN (7-21) mg/dL Creatinine (0.8-1.5) mg/dl Est GFR ( Amer) Est GFR (Non-Af Amer) POC Glucose (mg/dL) 158 H 194 H 148 H (65-110) mg/dL Random Glucose (70-110) mg/dL Calcium (8.4-10.5) mg/dL Total Bilirubin (0.2-1.3) mg/dL AST (17-59) U/L ALT (7-56) U/L Alkaline Phosphatase (38-126) U/L Total Protein (5.8-8.3) g/dL Albumin (3.0-4.8) g/dL Globulin gm/dL Albumin/Globulin Ratio (1.1-1.8) 12/25/17 Range/Units 07:18 WBC (4.5-11.0) 10^3/ul RBC (3.5-6.1) 10^6/uL Hgb (14.0-18.0) g/dL Hct (42.0-52.0) % MCV (80.0-105.0) fl MCH (25.0-35.0) pg MCHC (31.0-37.0) g/dl RDW (11.5-14.5) % Plt Count (120.0-450.0) 10^3/uL MPV (7.0-11.0) fl Sodium (132-148) mmol/L Potassium (3.6-5.0) mmol/L Chloride (98-107) mmol/L Carbon Dioxide (21-33) mmol/L Anion Gap (10-20) BUN (7-21) mg/dL Creatinine (0.8-1.5) mg/dl Est GFR ( Amer) Est GFR (Non-Af Amer) POC Glucose (mg/dL) 142 H (65-110) mg/dL Random Glucose (70-110) mg/dL Calcium (8.4-10.5) mg/dL Total Bilirubin (0.2-1.3) mg/dL AST (17-59) U/L ALT (7-56) U/L Alkaline Phosphatase (38-126) U/L Total Protein (5.8-8.3) g/dL Albumin (3.0-4.8) g/dL Globulin gm/dL Albumin/Globulin Ratio (1.1-1.8) Laboratory Results - last 24 hr 12/25/17 12/25/17 12/25/17 07:18 11:00 16:00 WBC RBC Hgb Hct MCV MCH MCHC RDW Plt Count MPV Sodium Potassium Chloride Carbon Dioxide Anion Gap BUN Creatinine Est GFR ( Amer) Est GFR (Non-Af Amer) POC Glucose (mg/dL) 142 H 148 H 194 H Random Glucose Calcium Total Bilirubin AST ALT Alkaline Phosphatase Total Protein Albumin Globulin Albumin/Globulin Ratio 12/25/17 12/26/17 12/26/17 21:42 06:45 07:18 WBC 11.2 H D RBC 2.90 L Hgb 8.5 L Hct 26.7 L MCV 92.1 MCH 29.3 MCHC 31.8 RDW 18.2 H Plt Count 123 MPV 10.7 Sodium Potassium Chloride Carbon Dioxide Anion Gap BUN Creatinine Est GFR ( Amer) Est GFR (Non-Af Amer) POC Glucose (mg/dL) 158 H 165 H Random Glucose Calcium Total Bilirubin AST ALT Alkaline Phosphatase Total Protein Albumin Globulin Albumin/Globulin Ratio 12/26/17 09:00 WBC RBC Hgb Hct MCV MCH MCHC RDW Plt Count MPV Sodium 137 Potassium 4.1 Chloride 100 Carbon Dioxide 34 H Anion Gap 7 L BUN 19 Creatinine 0.3 L Est GFR ( Amer) > 60 Est GFR (Non-Af Amer) > 60 POC Glucose (mg/dL) Random Glucose 136 H Calcium 7.1 L Total Bilirubin 1.0 AST 21 ALT 21 Alkaline Phosphatase 104 Total Protein 4.9 L Albumin 2.2 L Globulin 2.7 Albumin/Globulin Ratio 0.8 L Critical Care Progress Note - Nutrition Nutrition: Nutrition Category Date Time Status NPO Diet [DIET] Diets 12/16/17 Dinner Ordered Assessment/Plan - Assessment and Plan (Free Text) Assessment: 72 year old male with pertinent medical history of NSCLC under ICU management for hypoxic respiratory failure. Metastatic Cancer to Bone Acute Leukocytosis Pulm HTN COPD Sacral Decub Plan Neuro: - Maintain normothermia; started on precedex for agitation - Neuro on consult Lungs: - Maintain SaO2 > 90% on HF O2, settings per orders - as per Pulm - Continue HF NC at 80% and 50L - as per Pulm - Continue Solumedrol 20mg IV q12 - Continue with Xopenex - Pulmonology: Dr. Dent - Radiation oncology: Dr. Vega Cardio: - Cardizem 30mg PO Q6 started - Maintain MAP > 65 - ECHO reviewed - Lasix 20mg IV ID: - Leukocytosis trending back up - Day 14 out of 14 day course vancomycin for MRSA bacteremia; source port-a- cath - Day 4 merrem for new healthcare associated pneumonia, likely aspiration - Urine, blood, sputum cultures - negative for growth for now - ID on consult: Dr. Purdy Renal: - BUN/Cr WNL, will monitor - Avoid nephrotoxic agents and hypochloremia - Maintain euvolemia Heme: - Hgb stable, no need for transfusion; last transfusion on 12/23 at 5:55A - Continue with Lovenox for DVT PPX Endo: - Maintain euglycemia GI: - Continue with Protonix for GI ppx - PEG tube - Monitor LFTs - GI on consult: Abner - Surgery on consult: Dr. Pena Dispo: Need to speak to patient's family regarding advanced directives VS DNR/ DNI. Will send patient to LTAC pending placement and bed availability <Spencer Muñoz - Last Filed: 12/26/17 18:37> CCU Objective - Vital Signs / Intake & Output Vital Signs (Last 4 hours): Vital Signs Pulse Resp BP Pulse Ox 12/26/17 18:20 71 18 65 L 12/26/17 18:10 74 42 H 75 L 12/26/17 18:00 118/54 L 12/26/17 17:59 73 18 87 L 12/26/17 17:50 75 18 83 L 12/26/17 17:40 83 17 82 L 12/26/17 17:30 92 H 26 H 81 L 12/26/17 17:27 95 H 126/62 12/26/17 17:20 84 18 97 12/26/17 17:10 86 18 98 12/26/17 17:04 85 18 12/26/17 17:03 84 17 12/26/17 17:02 84 20 12/26/17 17:01 84 18 12/26/17 17:00 126/62 12/26/17 16:59 87 17 12/26/17 16:58 87 18 12/26/17 16:57 87 20 12/26/17 16:56 81 18 12/26/17 16:55 80 21 12/26/17 16:54 71 22 12/26/17 16:53 81 22 12/26/17 16:52 85 21 12/26/17 16:51 86 20 12/26/17 16:50 85 17 89 L 12/26/17 16:40 83 18 90 L 12/26/17 16:30 84 19 90 L 12/26/17 16:20 85 21 91 L 12/26/17 16:10 78 19 91 L 12/26/17 16:00 75 19 119/49 L 92 L 12/26/17 15:50 75 20 92 L 12/26/17 15:40 71 16 93 L 12/26/17 15:30 68 16 92 L 12/26/17 15:20 72 16 94 L 12/26/17 15:10 78 20 94 L 12/26/17 15:00 77 22 113/59 L 91 L 12/26/17 14:50 77 20 90 L 12/26/17 14:40 77 21 91 L Intake and Output (Last 8hrs): Intake & Output 12/26/17 12/26/17 12/26/17 06:59 14:59 22:59 Intake Total 773 780 Output Total 300 650 Balance 473 130 Weight 129 lb 7 oz Intake: IV 113 30 Precedex 33 30 Right Internal Jugular 80 Tube Feeding 660 600 Other 150 Output: Urine 300 650 Condom 300 650 - Medications Active Medications: Active Medications Generic Name Dose Route Start Last Admin Trade Name Freq PRN Reason Stop Dose Admin Acetaminophen 650 mg 12/22/17 12:02 Tylenol 160mg/5ml Oral Soln PEG Q4 PRN Pain, Mild (1-3) Arformoterol Tartrate 15 mcg 12/12/17 08:00 12/26/17 08:07 Brovana IH 15 mcg [id number] FRANKY Administration Collagenase 1 gm 12/12/17 12:15 12/26/17 10:47 Santyl TOP 1 applic DAILY FRANKY Administration Al Hydrox/Mg Hydrox/ 0 ml 12/12/17 15:59 Simethicone 30 ml/ PO Diphenhydramine HCl 75 mg/ Q2H PRN Lidocaine 30 ml MOUTH/THROAT PAIN Diltiazem HCl 30 mg 12/24/17 08:45 12/26/17 17:27 Cardizem PO 30 mg Q6 FRANKY Administration Enoxaparin Sodium 30 mg 12/13/17 10:00 12/26/17 10:40 Lovenox SC 30 mg DAILY FRANKY Administration Protocol Furosemide 20 mg 12/24/17 10:00 12/26/17 10:44 Lasix IVP 20 mg DAILY FRANKY Administration Vancomycin HCl 1 gm in 250 mls @ 167 mls/hr 12/22/17 23:30 12/26/17 10:39 Vancomycin 1gm IVPB 167 mls/hr Q12H FRANKY Administration Protocol diltiaZEM IVPB 100mg in NS 100 mls @ 10 mls/hr 12/24/17 17:12 12/24/17 17:26 Cardizem 100mg In Ns IV 10 mg/hr .Q10H PRN 10 mls/hr TITRATE PER MD ORDER Administration Protocol 10 MG/HR Dexmedetomidine HCl 400 mcg in 100 mls @ 3.025 mls/hr 12/25/17 18:02 18:35 Precedex 400mcg/100ml IV 0.2 mcg/kg/hr .Q24H PRN 3.025 mls/hr Agitation Administration Protocol 0.2 MCG/KG/HR Lactic Acid 1 ea 12/15/17 10:00 12/26/17 10:46 Lac-Hydrin 12% Cream (140 G) TOP 1 appl DAILY FRANKY Administration Levalbuterol HCl 0.63 mg 12/16/17 14:05 12/25/17 20:00 Xopenex IH 0.63 mg [id number] PRN Administration Shortness of Breath Lidocaine 0 gm 12/13/17 14:00 12/26/17 17:30 Lidocaine 5% TOP 1 applic TID FRANKY Administration Lorazepam 0.5 mg 12/23/17 12:01 Ativan IVP Q6H PRN Anxiety Protocol Methylprednisolone 20 mg 12/23/17 10:45 12/26/17 10:40 Solu-Medrol IVP 20 mg Q12 FRANKY Administration Non-Formulary Medication 1 applic 12/13/17 10:00 12/26/17 13:36 Dimethicone [Proshield Plus Skin Protectant] TOP Not Given DAILY FRANKY Ondansetron HCl 4 mg 12/12/17 15:48 12/15/17 15:18 Zofran Tab PO 4 mg Q6 PRN Administration Nausea/Vomiting Pantoprazole Sodium 40 mg 12/24/17 10:00 12/26/17 10:42 Protonix Inj IVP 40 mg DAILY FRANKY Administration Quetiapine Fumarate 50 mg 12/25/17 22:00 12/25/17 21:30 Seroquel PO 50 mg HS FRANKY Administration Protocol Saliva Substitute 0 ml 12/13/17 17:00 12/26/17 17:31 Saliva Substitute PO 1 ml WM FRANKY Administration Vitamin A 1 ea 12/12/17 18:00 12/26/17 17:30 Vitamin A & D Oint Ud Foilpak TOP 1 ea TID FRANKY Administration - Patient Studies Lab Studies: Microbiology Studies 12/23/17 17:35 Gram Stain - Final Sputum Sputum Culture - Final Yeast Species 12/23/17 18:00 Blood Culture - Preliminary Blood NO GROWTH AFTER 48 HOURS 12/23/17 18:30 Blood Culture - Preliminary Blood NO GROWTH AFTER 48 HOURS 12/23/17 17:40 Urine Culture - Final Urine No Growth (<1,000 CFU/ML) Lab Studies 12/26/17 12/26/17 12/26/17 Range/Units 16:14 11:08 09:00 WBC (4.5-11.0) 10^3/ul RBC (3.5-6.1) 10^6/uL Hgb (14.0-18.0) g/dL Hct (42.0-52.0) % MCV (80.0-105.0) fl MCH (25.0-35.0) pg MCHC (31.0-37.0) g/dl RDW (11.5-14.5) % Plt Count (120.0-450.0) 10^3/uL MPV (7.0-11.0) fl Sodium 137 (132-148) mmol/L Potassium 4.1 (3.6-5.0) mmol/L Chloride 100 (98-107) mmol/L Carbon Dioxide 34 H (21-33) mmol/L Anion Gap 7 L (10-20) BUN 19 (7-21) mg/dL Creatinine 0.3 L (0.8-1.5) mg/dl Est GFR ( Amer) > 60 Est GFR (Non-Af Amer) > 60 POC Glucose (mg/dL) 216 H 185 H (65-110) mg/dL Random Glucose 136 H (70-110) mg/dL Calcium 7.1 L (8.4-10.5) mg/dL Total Bilirubin 1.0 (0.2-1.3) mg/dL AST 21 (17-59) U/L ALT 21 (7-56) U/L Alkaline Phosphatase 104 (38-126) U/L Total Protein 4.9 L (5.8-8.3) g/dL Albumin 2.2 L (3.0-4.8) g/dL Globulin 2.7 gm/dL Albumin/Globulin Ratio 0.8 L (1.1-1.8) 12/26/17 12/26/17 12/25/17 Range/Units 07:18 06:45 21:42 WBC 11.2 H D (4.5-11.0) 10^3/ul RBC 2.90 L (3.5-6.1) 10^6/uL Hgb 8.5 L (14.0-18.0) g/dL Hct 26.7 L (42.0-52.0) % MCV 92.1 (80.0-105.0) fl MCH 29.3 (25.0-35.0) pg MCHC 31.8 (31.0-37.0) g/dl RDW 18.2 H (11.5-14.5) % Plt Count 123 (120.0-450.0) 10^3/uL MPV 10.7 (7.0-11.0) fl Sodium (132-148) mmol/L Potassium (3.6-5.0) mmol/L Chloride (98-107) mmol/L Carbon Dioxide (21-33) mmol/L Anion Gap (10-20) BUN (7-21) mg/dL Creatinine (0.8-1.5) mg/dl Est GFR ( Amer) Est GFR (Non-Af Amer) POC Glucose (mg/dL) 165 H 158 H (65-110) mg/dL Random Glucose (70-110) mg/dL Calcium (8.4-10.5) mg/dL Total Bilirubin (0.2-1.3) mg/dL AST (17-59) U/L ALT (7-56) U/L Alkaline Phosphatase (38-126) U/L Total Protein (5.8-8.3) g/dL Albumin (3.0-4.8) g/dL Globulin gm/dL Albumin/Globulin Ratio (1.1-1.8) 12/25/17 12/25/17 12/25/17 Range/Units 16:00 11:00 07:18 WBC (4.5-11.0) 10^3/ul RBC (3.5-6.1) 10^6/uL Hgb (14.0-18.0) g/dL Hct (42.0-52.0) % MCV (80.0-105.0) fl MCH (25.0-35.0) pg MCHC (31.0-37.0) g/dl RDW (11.5-14.5) % Plt Count (120.0-450.0) 10^3/uL MPV (7.0-11.0) fl Sodium (132-148) mmol/L Potassium (3.6-5.0) mmol/L Chloride (98-107) mmol/L Carbon Dioxide (21-33) mmol/L Anion Gap (10-20) BUN (7-21) mg/dL Creatinine (0.8-1.5) mg/dl Est GFR ( Amer) Est GFR (Non-Af Amer) POC Glucose (mg/dL) 194 H 148 H 142 H (65-110) mg/dL Random Glucose (70-110) mg/dL Calcium (8.4-10.5) mg/dL Total Bilirubin (0.2-1.3) mg/dL AST (17-59) U/L ALT (7-56) U/L Alkaline Phosphatase (38-126) U/L Total Protein (5.8-8.3) g/dL Albumin (3.0-4.8) g/dL Globulin gm/dL Albumin/Globulin Ratio (1.1-1.8) Laboratory Results - last 24 hr 12/25/17 12/25/17 12/25/17 07:18 11:00 16:00 WBC RBC Hgb Hct MCV MCH MCHC RDW Plt Count MPV Sodium Potassium Chloride Carbon Dioxide Anion Gap BUN Creatinine Est GFR ( Amer) Est GFR (Non-Af Amer) POC Glucose (mg/dL) 142 H 148 H 194 H Random Glucose Calcium Total Bilirubin AST ALT Alkaline Phosphatase Total Protein Albumin Globulin Albumin/Globulin Ratio 12/25/17 12/26/17 12/26/17 21:42 06:45 07:18 WBC 11.2 H D RBC 2.90 L Hgb 8.5 L Hct 26.7 L MCV 92.1 MCH 29.3 MCHC 31.8 RDW 18.2 H Plt Count 123 MPV 10.7 Sodium Potassium Chloride Carbon Dioxide Anion Gap BUN Creatinine Est GFR ( Amer) Est GFR (Non-Af Amer) POC Glucose (mg/dL) 158 H 165 H Random Glucose Calcium Total Bilirubin AST ALT Alkaline Phosphatase Total Protein Albumin Globulin Albumin/Globulin Ratio 12/26/17 12/26/17 12/26/17 09:00 11:08 16:14 WBC RBC Hgb Hct MCV MCH MCHC RDW Plt Count MPV Sodium 137 Potassium 4.1 Chloride 100 Carbon Dioxide 34 H Anion Gap 7 L BUN 19 Creatinine 0.3 L Est GFR ( Amer) > 60 Est GFR (Non-Af Amer) > 60 POC Glucose (mg/dL) 185 H 216 H Random Glucose 136 H Calcium 7.1 L Total Bilirubin 1.0 AST 21 ALT 21 Alkaline Phosphatase 104 Total Protein 4.9 L Albumin 2.2 L Globulin 2.7 Albumin/Globulin Ratio 0.8 L Critical Care Progress Note - Nutrition Nutrition: Nutrition Category Date Time Status NPO Diet [DIET] Diets 12/16/17 Dinner Ordered Attending/Attestation - Attestation I have personally seen and examined this patient.: Yes I have fully participated in the care of the patient.: Yes I have reviewed all pertinent clinical information: Yes Notes (Text): 12/26/17 18:34 72 yo male with end stage [id number] with bone mets, recovering from respiratory failure, doing well on high flow. Developed delirium last night, started on precedex and seroquel. Family wants to continue full support--> will transfer to LTAC. abx/steroids taper, pulm toilet/nebs/IS, oob to chair when delirium resolved/chest PT/PT. DVT/GI prophylaxis ccm time 40 min
--- NOTE | 2017-12-26 13:27 | CP.PCM.PN ---
Subjective - Date & Time of Evaluation Date of Evaluation: 12/26/17 Time of Evaluation: 13:00 - Subjective Subjective: Lethargic,on 80% high flow 02 Objective - Vital Signs/Intake and Output Vital Signs (last 24 hours): Temp Pulse Resp BP Pulse Ox 98.9 F 73 16 110/48 L 97 12/25/17 22:00 12/26/17 09:50 12/26/17 10:00 12/26/17 10:44 12/26/17 09:50 Intake and Output: 12/26/17 12/26/17 06:59 18:59 Intake Total 773 Output Total 300 Balance 473 - Medications Medications: Current Medications Acetaminophen (Tylenol 160mg/5ml Oral Soln) 650 mg PEG Q4 PRN PRN Reason: Pain, Mild (1-3) Arformoterol Tartrate (Brovana) 15 mcg [facility] [id number] [facility] Last Admin: 12/26/17 08:07 Dose: 15 mcg Collagenase (Santyl) 1 gm TOP DAILY [facility] Last Admin: 12/26/17 10:47 Dose: 1 applic Al Hydrox/Mg Hydrox/Simethicone 30 ml/Diphenhydramine HCl 75 mg/Lidocaine 30 ml 0 ml PO Q2H PRN PRN Reason: MOUTH/THROAT PAIN Diltiazem HCl (Cardizem) 30 mg PO Q6 [facility] Last Admin: 12/26/17 06:04 Dose: 30 mg Enoxaparin Sodium (Lovenox) 30 mg SC DAILY [facility] PRN Reason: Protocol Last Admin: 12/26/17 10:40 Dose: 30 mg Furosemide (Lasix) 20 mg IVP DAILY [facility] Last Admin: 12/26/17 10:44 Dose: 20 mg Vancomycin HCl (Vancomycin 1gm) 1 gm in 250 mls @ 167 mls/hr IVPB Q12H [facility] PRN Reason: Protocol Last Admin: 12/26/17 10:39 Dose: 167 mls/hr Meropenem (Merrem Iv 1 Gm Premix) 50 mls @ 100 mls/hr IVPB Q8 [facility] PRN Reason: Protocol Stop: 01/01/18 14:01 Last Admin: 12/26/17 06:06 Dose: 100 mls/hr diltiaZEM IVPB 100mg in NS (Cardizem 100mg In Ns) 100 mls @ 10 mls/hr IV .Q10H PRN; Protocol; 10 MG/HR PRN Reason: TITRATE PER MD ORDER Last Admin: 12/24/17 17:26 Dose: 10 mg/hr, 10 mls/hr Dexmedetomidine HCl (Precedex 400mcg/100ml) 400 mcg in 100 mls @ 3.025 mls/hr IV .Q24H PRN; Protocol; 0.2 MCG/KG/HR PRN Reason: Agitation Last Admin: 12/25/17 18:35 Dose: 0.2 mcg/kg/hr, 3.025 mls/hr Lactic Acid (Lac-Hydrin 12% Cream (140 G)) 1 ea TOP DAILY [facility] Last Admin: 12/26/17 10:46 Dose: 1 appl Levalbuterol HCl (Xopenex) 0.63 mg IH [id number] PRN PRN Reason: Shortness of Breath Last Admin: 12/25/17 20:00 Dose: 0.63 mg Lidocaine (Lidocaine 5%) 0 gm TOP TID [facility] Last Admin: 12/26/17 10:47 Dose: 1 applic Lorazepam (Ativan) 0.5 mg IVP Q6H PRN; Protocol PRN Reason: Anxiety Methylprednisolone (Solu-Medrol) 20 mg IVP Q12 [facility] Last Admin: 12/26/17 10:40 Dose: 20 mg Non-Formulary Medication (Dimethicone [Proshield Plus Skin Protectant]) 1 applic TOP DAILY [facility] Last Admin: 12/25/17 10:04 Dose: Not Given Ondansetron HCl (Zofran Tab) 4 mg PO Q6 PRN PRN Reason: Nausea/Vomiting Last Admin: 12/15/17 15:18 Dose: 4 mg Pantoprazole Sodium (Protonix Inj) 40 mg IVP DAILY [facility] Last Admin: 12/26/17 10:42 Dose: 40 mg Quetiapine Fumarate (Seroquel) 50 mg PO HS [facility] PRN Reason: Protocol Last Admin: 12/25/17 21:30 Dose: 50 mg Saliva Substitute (Saliva Substitute) 0 ml PO WM [facility] Last Admin: 12/26/17 10:48 Dose: 1 ml Vitamin A (Vitamin A & D Oint Ud Foilpak) 1 ea TOP TID [facility] Last Admin: 12/26/17 10:39 Dose: 1 ea - Labs Labs: 12/26/17 06:45 12/26/17 09:00 PT 13.6 SECONDS (9.4-12.5) H 12/20/17 07:11 INR 1.18 12/20/17 07:11 APTT 30.0 Seconds (25.1-36.5) 12/19/17 06:15 - Constitutional Appears: Cachectic, Chronically Ill - Head Exam Head Exam: NORMOCEPHALIC - Eye Exam Eye Exam: Normal appearance, PERRL - ENT Exam ENT Exam: Mucous Membranes Moist - Respiratory Exam Respiratory Exam: Decreased Breath Sounds, Rhonchi - Cardiovascular Exam Cardiovascular Exam: REGULAR RHYTHM, +S1, +S2 - GI/Abdominal Exam GI & Abdominal Exam: Soft, Hypoactive Bowel Sounds Additional comments: PEG patent - Extremities Exam Extremities Exam: Normal Capillary Refill, Pedal Edema - Neurological Exam Neurological Exam: Altered - Skin Skin Exam: Dry, Pallor Assessment and Plan - Assessment and Plan (Free Text) Assessment: 72 year old male with history of stage IV lung cancer who was admitted with weakness, failure to thrive s/p PEG placement, pneumonia, respiratory insufficiency, cachexia. I have had several previous discussions with patients daughter's regarding goals of care and advance care planning. Family states that patient " wants every thing done". Patient has not been consistent when I have spoken with him privately about his wishes. Patient developed respiratory distress over the weekend and was intubated but has since self extubated. I met with his daughter Eli and brother this morning. Extensive discussion regarding quality of life and advance care planning ensued. Daughter states she is unsure what to do. Daughter recognizes that her father's health is failing but not ready to make any decision at this time. Encouraged her to speak with her mother and sister again regarding this matter. In the interim family has agreed to transfer to LTAC. Time spent in goals of care and advance care planning discussion with family 30 minutes Plan: Goals of care and advance care planning Continue current medical treatment upon transfer to LTAC Oncology follow up as an outpatient
[2017-12-26] MEDS: DIMETHICONE TOP SCH (13:36)
--- NOTE | 2017-12-26 14:12 | RAD ---
Date of service: 12/26/2017 HISTORY: [facility] COMPARISON: 12/25/2017 FINDINGS: LUNGS: Mild improvement in bibasilar opacities. PLEURA: Persistent small to moderate left pleural effusion. No pneumothorax. No right pleural effusion. CARDIOVASCULAR: Normal heart size. Right central venous infusion port. OSSEOUS STRUCTURES: No significant abnormalities. VISUALIZED UPPER ABDOMEN: Normal. OTHER FINDINGS: None. IMPRESSION: Mild improvement in bibasilar opacities. Possible pneumonia. Left pleural effusion.
--- NOTE | 2017-12-26 18:00 | PN ---
Copied To: Judit Pro MD Attending MD: Judit Pro MD DATE: 12/26/2017 REASON FOR CONSULTATION AND FOLLOWUP: Cardiac evaluation, status post intubated and now successfully extubated, lung CA with altered mental status. SUBJECTIVE: The patient is lying on the bed, not in any apparent distress. Denies any chest pain, shortness of breath or any palpitation. PHYSICAL EXAMINATION: GENERAL: Not in any apparent distress, . VITAL SIGNS: Temperature afebrile, heart rate 73, blood pressure 110/48. HEENT: PERRLA. Extraocular muscles intact. NECK: Supple. No carotid bruits or thyromegaly. CHEST: Clear to auscultation. HEART: S1 and S2 regular. ABDOMEN: Soft. EXTREMITIES: Clubbing and cyanosis negative. LABORATORY DATA: Blood workup as follows: WBC 11.2, hemoglobin 8.9, hematocrit 26.7, and platelet count 123. Chemistry shows sodium 136, potassium 4.1, chloride 100, carbon dioxide 34, anion gap of 7, BUN 19, creatinine 0.3. IMPRESSION: A 72-year-old male with past medical history significant for non-small cell lung cancer, unresectable, who was short of breath, history of widespread metastasis with fracture of the tibia, pathological fracture, status post open reduction. The patient got very short of breath, transferred to ICU, intubated and now the patient is successfully extubated. Ejection fraction by echo 50%, moderate dilated right ventricle, moderately reduced right ventricular function, moderate pulmonary hypertension. Awaiting to go for percutaneous endoscopic gastrostomy placement. Overall, the patient's condition is critical. Long-term prognosis is guarded. Continue supportive care. Code status should be DNR. Currently, the patient is on Cardizem. We will follow with you. Thank you, Dr. Durbin, for providing us the opportunity in taking care of the patient, Alton Monson. Judit Pro MD
--- NOTE | 2017-12-26 18:22 | CP.PCM.PN ---
Subjective - Date & Time of Evaluation Date of Evaluation: 12/26/17 Time of Evaluation: 09:25 - Subjective Subjective: Continues to be on high flow oxygen, no fevers, still looks weak but not in distress. Objective - Vital Signs/Intake and Output Vital Signs (last 24 hours): Temp Pulse Resp BP Pulse Ox 98.3 F 67 14 126/59 L 83 L 12/25/17 10:00 12/26/17 06:04 12/26/17 05:23 12/26/17 06:04 12/25/17 15:30 Intake and Output: 12/25/17 12/26/17 18:59 06:59 Intake Total 1140 Output Total 1200 Balance -60 - Medications Medications: Current Medications Acetaminophen (Tylenol 160mg/5ml Oral Soln) 650 mg PEG Q4 PRN PRN Reason: Pain, Mild (1-3) Arformoterol Tartrate (Brovana) 15 mcg IH [id number] [facility] Last Admin: 12/25/17 20:00 Dose: 15 mcg Collagenase (Santyl) 1 gm TOP DAILY [facility] Last Admin: 12/25/17 09:56 Dose: 1 applic Al Hydrox/Mg Hydrox/Simethicone 30 ml/Diphenhydramine HCl 75 mg/Lidocaine 30 ml 0 ml PO Q2H PRN PRN Reason: MOUTH/THROAT PAIN Diltiazem HCl (Cardizem) 30 mg PO Q6 [facility] Last Admin: 12/26/17 06:04 Dose: 30 mg Enoxaparin Sodium (Lovenox) 30 mg SC DAILY [facility] PRN Reason: Protocol Last Admin: 12/25/17 09:32 Dose: 30 mg Furosemide (Lasix) 20 mg IVP DAILY [facility] Last Admin: 12/25/17 09:33 Dose: 20 mg Vancomycin HCl (Vancomycin 1gm) 1 gm in 250 mls @ 167 mls/hr IVPB Q12H [facility] PRN Reason: Protocol Last Admin: 12/25/17 10:31 Dose: 167 mls/hr Meropenem (Merrem Iv 1 Gm Premix) 50 mls @ 100 mls/hr IVPB Q8 [facility] PRN Reason: Protocol Stop: 01/01/18 14:01 Last Admin: 12/26/17 06:06 Dose: 100 mls/hr diltiaZEM IVPB 100mg in NS (Cardizem 100mg In Ns) 100 mls @ 10 mls/hr IV .Q10H PRN; Protocol; 10 MG/HR PRN Reason: TITRATE PER MD ORDER Last Admin: 12/24/17 17:26 Dose: 10 mg/hr, 10 mls/hr Dexmedetomidine HCl (Precedex 400mcg/100ml) 400 mcg in 100 mls @ 3.025 mls/hr IV .Q24H PRN; Protocol; 0.2 MCG/KG/HR PRN Reason: Agitation Last Admin: 12/25/17 18:35 Dose: 0.2 mcg/kg/hr, 3.025 mls/hr Lactic Acid (Lac-Hydrin 12% Cream (140 G)) 1 ea TOP DAILY [facility] Last Admin: 12/25/17 09:55 Dose: 1 appl Levalbuterol HCl (Xopenex) 0.63 mg IH [id number] PRN PRN Reason: Shortness of Breath Last Admin: 12/25/17 20:00 Dose: 0.63 mg Lidocaine (Lidocaine 5%) 0 gm TOP TID [facility] Last Admin: 12/25/17 18:15 Dose: 1 applic Lorazepam (Ativan) 0.5 mg IVP Q6H PRN; Protocol PRN Reason: Anxiety Methylprednisolone (Solu-Medrol) 20 mg IVP Q12 [facility] Last Admin: 12/25/17 21:31 Dose: 20 mg Non-Formulary Medication (Dimethicone [Proshield Plus Skin Protectant]) 1 applic TOP DAILY [facility] Last Admin: 12/25/17 10:04 Dose: Not Given Ondansetron HCl (Zofran Tab) 4 mg PO Q6 PRN PRN Reason: Nausea/Vomiting Last Admin: 12/15/17 15:18 Dose: 4 mg Pantoprazole Sodium (Protonix Inj) 40 mg IVP DAILY [facility] Last Admin: 12/25/17 09:32 Dose: 40 mg Quetiapine Fumarate (Seroquel) 50 mg PO HS [facility] PRN Reason: Protocol Last Admin: 12/25/17 21:30 Dose: 50 mg Saliva Substitute (Saliva Substitute) 0 ml PO WM [facility] Last Admin: 12/25/17 18:15 Dose: 1 ml Vitamin A (Vitamin A & D Oint Ud Foilpak) 1 ea TOP TID [facility] Last Admin: 08/06/18 18:14 Dose: 1 ea - Labs Labs: 12/25/17 05:30 12/25/17 05:30 PT 13.6 SECONDS (9.4-12.5) H 12/20/17 07:11 INR 1.18 12/20/17 07:11 APTT 30.0 Seconds (25.1-36.5) 12/19/17 06:15 - Constitutional Appears: Cachectic, Chronically Ill - Head Exam Head Exam: NORMAL INSPECTION - Respiratory Exam Respiratory Exam: Decreased Breath Sounds - Cardiovascular Exam Cardiovascular Exam: +S1, +S2 - GI/Abdominal Exam GI & Abdominal Exam: Soft. absent: Tenderness Assessment and Plan - Assessment and Plan (Free Text) Plan: Assessment Severe sepsis S/P VDRF due to right lower lobe HCAP on top of methicillin- resistant coagulase negative staph bacteremia, suspicious for port-a-cath as the source S/P infected unstageable sacral ulcer (skin and skin structure infection) metastatic non-small cell lung cancer cachexia COPD chronic anemia anxiety dyslipidemia HTN Plan continue Vancomycin day 14 and Merrem day 4 will continue monitor clinically overall prognosis is poor
[2017-12-26 18:30] VITALS: BP 118/54; PULSE 71; RESP 18; O2SAT 65
--- NOTE | 2017-12-26 23:31 | PN ---
Copied To: Judit Dent MD Attending MD: Judit Dent MD DATE: 12/26/2017 PULMONARY CRITICAL CARE PROGRESS NOTE REFERRING PHYSICIAN: Adolfo Durbin MD SUBJECTIVE: He is lying in the bed, head at 45 degrees. Brother and daughter is at bedside. on high-flow nasal cannula oxygen. Feels okay. Still having trouble clearing pulmonary secretion. Does not want nasal or mouth suction. No hemoptysis. No hematemesis. No hematuria. No diarrhea reported. OBJECTIVE: GENERAL: No acute distress. VITAL SIGNS: Temperature is 98, heart rate 71, respiratory rate is 20, blood pressure 118/54, pulse ox 97% on high-flow nasal cannula. HEENT: Moist mucous membranes. Crowded airway. NECK: Supple. No JVD. LUNGS: Have decreased breath sounds on the left base. HEART: S1 and S2. ABDOMEN: Soft, nontender. No organomegaly. EXTREMITIES: There is no edema. NEUROLOGICAL: Awake, alert, follows simple command. MEDICATIONS: He is on lorazepam 0.5 mg every 6 hours p.r.n. for anxiety, Brovana inhaled twice a day, Cardizem 30 mg every 6 hours, also on IV diltiazem, Lasix 20 mg daily, lidocaine patch at affected area, Lovenox 30 mg daily, Magic mouth wash every 2 hours p.r.n. also on Protonix 40 mg daily, Santyl to affected area, Seroquel 50 mg at bedtime, Solu-Medrol 20 mg twice a day, Tylenol p.r.n., vancomycin 1 g IV twice a day, Zofran p.r.n., Xopenex inhaled every 6 hours p.r.n., vitamin A and D ointment to affected area. LABORATORY DATA: Shows hemoglobin 8.5, hematocrit 26.7, WBC 11.2, platelet is 123. Sodium 137, potassium 4.1, chloride 100, bicarbonate 34, BUN 19, creatinine 0.3, glucose 136, calcium 7.1, AST 21, ALT 21, alk phos is 104. Albumin is 2.2. Sputum culture has some yeast. Blood culture, repeat is negative. Chest x-ray done this afternoon shows mild improvement in the left basilar opacity, possible pneumonia, left pleural effusion. IMPRESSION AND PLAN: Unresectable lung cancer with metastatic disease to bone, vertebra, had a pathological fracture of the right tibia requiring surgery, been on radiation therapy, chronic obstructive lung disease, recurrent collapse of the left lung with mucus plugging. The patient refusing nasal and oral suction, status post respiratory failure, extubated yesterday. I spoke to family at bedside. All their questions answered. Continue antibiotics. Continue steroids. Encourage nasal and mouth suction. May continue high-flow oxygen during the daytime. May go on noninvasive ventilation, bilevel positive airway pressure while sleeping. Follow up x-ray, CBC, CMP in the morning. Critical care time spent more than 35 minutes. Thank you and we will follow with you. Judit Dent MD
--- NOTE | 2017-12-28 07:46 | DS ---
Copied To: Artem Wolf MD Attending MD: Artem Wolf MD LOCATION: Patient is currently in ICU bed 3. HOSPITAL COURSE: Patient was transferred because of progressive hypoxemia ending up getting intubated for the progressive hypoxemia probably related to aspiration pneumonia on the left side, which improved. Patient self extubated himself and has stabilized, became agitated overnight. Once he was started on Precedex; however, the patient has improved and is stable at this point in time and is being prep for transfer to a [facility] LT[facility] facility for further management. Patient is initially admitted to [facility] with failure to thrive in the background history of having progressive stage IV metastatic non-small cell carcinoma of the lung, status post one course of chemotherapy with carboplatin and trimetrexate and dramatic response due to the chemotherapy has evidence on the CAT scan of the chest, abdomen and pelvis. Patient also received one cycle of intravenously prior to him being admitted to the hospital. The patient was admitted to the hospital for failure to thrive along with huge sacral decubitus and worsening pain of the site of the tibial fracture, which had already been pinned prior to the admission. During the hospital course, the patient was treated with IV antibiotics for bacteremia secondary to Staph epidermidis, which he was treated with vancomycin, antibiotics have been continued. He was also treated for sacral decubitus and also aspiration pneumonia. All of which have been gradually improving. Chest x-ray shows increased aeration and opening up of the left upper lobe of the lung. This was completely collapsed. PHYSICAL EXAMINATION: GENERAL: Reveals the patient to be awake, alert, slightly confused. VITAL SIGNS: Conjunctivae pale. Sclerae is anicteric. Pupils are equally reactive to light and accommodation. Mouth is dry. NECK: Supple. There is no adenopathy. No jugular venous distention noted. LUNGS: Clear to auscultation with decreased breath sounds on the left side. CARDIOVASCULAR: Reveals S1 and S2 to be normal. No gallop or murmur is heard. ABDOMEN: Soft, nontender. Patient has a PEG tube in place. The site appears to be clean. EXTREMITIES: Reveals upper and lower extremities to be within normal limits. Patient is status post radiation to the right tibia. Patient's pain over the right ankle and the right foot have improved slightly. Left lower extremity is unremarkable. NEUROLOGIC: Higher functions are normal. Patient is able to recognize me and recognize the fact that he is in [facility]. SKIN: Turgor is normal. No skin lesions are noted. MEDICATIONS: Reviewed. He is on Tylenol p.r.n. He is on Brovana 15 mcg inhaled every 12 hours. He is on Santyl collagenase topically to the sacral decubitus daily. He is on and lidocaine every 2 hours p.r.n. for mouth and throat pain, Cardizem 30 mg p.o. every 6 hours. He is on Lovenox 30 mg subcu daily, Lasix 20 mg IV daily, vancomycin 1 g IV every 12 hours, meropenem 1 g IV every 6-8 hours. He is on Cardizem 100 mg every 10 hours p.r.n. again for atrial tachyarrhythmias. He is on Precedex which has been tapered at this point in time. He is on Xopenex 0.63 mg inhaled every 6 hours. He is on lidocaine gel topically to the affected areas. He is on Ativan 0.5 mg every 6 hours p.r.n. for anxiety. He is on Solu-Medrol 20 mg IV every 12 hours. He is on skin protectant for his sacral decubitus. He is on Zofran 4 mg every 6 hours p.r.n. for nausea, Protonix 40 mg IV once a day and Seroquel 50 mg p.o. at bedtime. He is on substitute and vitamin A and B ointment topically as well. LABORATORY DATA: White count is 11.2, hemoglobin 8.5, hematocrit 26, platelet count is 123,000. Chemistries are within normal limits at this point in time. ASSESSMENT NOTES AND PLAN: This is a 72-year-old male with stage IV metastatic non-small cell lung carcinoma (adenocarcinoma), status post one cycle of chemotherapy, status post radiation to the left mainstem bronchus, status post radiation to the right tibia, he was admitted to the hospital with sacral decubitus, failure to thrive, completed radiation to the right tibia, on antibiotics now and slowly improving, had a percutaneous endoscopic gastrostomy tube for enteral feeding, was having multiple episodes of aspiration and is currently not getting anything orally. Plan is to continue the antibiotics in a pred[facility] animal [facility] facility. I had a long discussion with daughter Carlee and patient will be transferred to a place very close to home near [place], [place] and they said they will be able to keep in touch with the patient. Plan is to left the patient recover, recuperate, get enteral feeding, get stronger, start physical therapy, left the patient out of bed and hopefully within 2 to 3 weeks once the patient improves, we will plan on continuing his treatment. Thus far, my discussion with the patient and family, they are thinking about do not resuscitate/do not intubate, but they still want to be aggressive as far as management is concerned. I understand the feelings at this point in time. I told them to be optimistic and continue the feedings and go with the program. Time spent with the patient greater than 1 hour and trying to correlate all the facts and set up transfer plans. Artem Wolf MD
[2017-12-29] MEDS ORDERED: predniSONE 5 mg/5 mL Oral Soln UD PEG SCH (10:00)
[2018-01-03] MEDS ORDERED: predniSONE 5 mg/5 mL Oral Soln UD PEG SCH (10:00)
== END 2017-12-26 19:30 | DRG 314 ==
LOC: ED 16:47 → ERH 18:49 → 3RNO 21:06 → CCU 12-23 10:47
PROVIDERS: ADMIT Family Medicine; ATTEND Family Medicine
PROC: 30233N1 Transfusion of Nonautologous Red Blood Cells into Peripheral Vein, Percutaneous Approach (ICD-10-PCS; 2017-12-12)
PROC: DP0 Radiation Therapy, Musculoskeletal System, Beam Radiation (ICD-10-PCS; 2017-12-15)
PROC: 5A09357 Assistance with Respiratory Ventilation, Less than 24 Consecutive Hours, Continuous Positive Airway Pressure (ICD-10-PCS; 2017-12-18)
PROC: 0DH63UZ Insertion of Feeding Device into Stomach, Percutaneous Approach (ICD-10-PCS; 2017-12-19)
PROC: 5A1945Z Respiratory Ventilation, 24-96 Consecutive Hours (ICD-10-PCS; principal; 2017-12-23)
PROC: 0BH18EZ Insertion of Endotracheal Airway into Trachea, Via Natural or Artificial Opening Endoscopic (ICD-10-PCS; 2017-12-23)
PROC: 05HM33Z Insertion of Infusion Device into Right Internal Jugular Vein, Percutaneous Approach (ICD-10-PCS; 2017-12-23)
PROC: B543ZZA Ultrasonography of Right Jugular Veins, Guidance (ICD-10-PCS; 2017-12-23)
DX: T80.212A Local infection due to central venous catheter, initial encounter (principal); A41.1 Sepsis due to other specified staphylococcus; L89.154 Pressure ulcer of sacral region, stage 4; J96.01 Acute respiratory failure with hypoxia; J69.0 Pneumonitis due to inhalation of food and vomit; R65.20 Severe sepsis without septic shock; J95.84 Transfusion-related acute lung injury (TRALI); C34.92 Malignant neoplasm of unspecified part of left bronchus or lung; C79.51 Secondary malignant neoplasm of bone; C78.7 Secondary malignant neoplasm of liver and intrahepatic bile duct; E46 Unspecified protein-calorie malnutrition; R64 Cachexia; J98.11 Atelectasis; J90 Pleural effusion, not elsewhere classified; I47.1 Supraventricular tachycardia; T17.890A Other foreign object in other parts of respiratory tract causing asphyxiation, initial encounter; E87.4 Mixed disorder of acid-base balance; E87.1 Hypo-osmolality and hyponatremia; R62.7 Adult failure to thrive; J44.9 Chronic obstructive pulmonary disease, unspecified; E87.6 Hypokalemia; D63.8 Anemia in other chronic diseases classified elsewhere; M84.461D Pathological fracture, right tibia, subsequent encounter for fracture with routine healing; K59.00 Constipation, unspecified; I10 Essential (primary) hypertension; E83.42 Hypomagnesemia; E78.5 Hyperlipidemia, unspecified; F06.4 Anxiety disorder due to known physiological condition; F06.30 Mood disorder due to known physiological condition, unspecified; R13.12 Dysphagia, oropharyngeal phase; L85.3 Xerosis cutis; E86.0 Dehydration; I27.20 Pulmonary hypertension, unspecified; E83.39 Other disorders of phosphorus metabolism; E87.71 Transfusion associated circulatory overload; R19.7 Diarrhea, unspecified; I48.91 Unspecified atrial fibrillation; F43.23 Adjustment disorder with mixed anxiety and depressed mood; Z78.1 Physical restraint status; Z68.20 Body mass index [BMI] 20.0-20.9, adult; Z87.891 Personal history of nicotine dependence; Z88.6 Allergy status to analgesic agent